=== PATIENT | male | born 1945 | race Caucasian/White ===

== ENCOUNTER 2022-07-11 14:45 | Outpatient (RCR) | payer MEDICARE, BC, SELFPAY ==
[2022-03-13 08:43] LABS: Albumin* 3.9 g/dL (3.3-5.0)
[2022-03-13 08:45] LABS: Bilirubin Direct* 0.2 mg/dL (0.0-0.5); Bilirubin Total* 1.5 mg/dL (0.1-1.5); Total Protein* 6.2 g/dL (6.0-8.3)
[2022-03-13 08:46] LABS: Alanine Aminotransferase* 153 U/L (4-50); Alkaline Phosphatase* 74 U/L (40-150); Aspartate Amino Transferase* 70 U/L (12-35)
[2022-03-28 12:17] LABS: Basophils Absolute Auto 0.02 K/uL (0.00-0.30); Basophils Percent Auto 0.3 % (0.0-3.0); Eosinophils Absolute Auto 0.09 K/uL (0.00-0.50); Eosinophils Percent Auto 1.2 % (0.0-7.0); Hematocrit 41.3 % (37.0-53.0); Hemoglobin* 14.4 gm/dL (13.5-17.5); Immature Granulocytes Abs Auto 0.02 K/uL (0.00-0.30); Lymphocytes Percent Auto 11.5 % (20-44); Mean Corpuscular HGB Conc 35 gm/dL (32-36); Mean Corpuscular Hemoglobin 31 pg (26-34); Mean Corpuscular Volume 90 fL (80-100); Monocytes Percent Auto 8.6 % (0.0-11.0); Neutrophils Percent Auto 78.1 % (42.0-72.0); Platelet Count* 203 K/uL (140-440); RDW Coefficient of Variation % 13.3 % (11.5-15.5); Red Blood Count 4.58 m/uL (4.30-5.90); White Blood Count* 7.47 K/uL (4.50-11.00)
[2022-03-28 12:20] LABS: Slide Review Reflex No
[2022-03-28 12:44] LABS: Chloride* 102 mmol/L (96-114); Potassium* 3.2 mmol/L (3.6-5.1); Sodium* 138 mmol/L (135-149)
[2022-03-28 12:46] LABS: Bilirubin Total* 1.5 mg/dL (0.1-1.5); Carbon Dioxide* 28 mmol/L (20-32); Creatinine* 0.8 mg/dL (0.5-1.5); Estimated Glomerular Filt Rate 93 ml/min
[2022-03-28 12:47] LABS: Alanine Aminotransferase* 48 U/L (4-50); Alkaline Phosphatase* 69 U/L (40-150); Aspartate Amino Transferase* 36 U/L (12-35); Blood Urea Nitrogen* 18 mg/dL (7-30); Calcium* 8.9 mg/dL (8.4-10.6); Glucose* 116 mg/dL (60-115); Total Protein* 6.2 g/dL (6.0-8.3)
[2022-03-28 15:54] LABS: PSA Diagnostic* 0.37 ng/mL (0.10-4.00)
[2022-04-11 12:07] LABS: Albumin* 3.9 g/dL (3.3-5.0)
[2022-04-11 12:09] LABS: Bilirubin Direct* 0.2 mg/dL (0.0-0.5); Total Protein* 6.3 g/dL (6.0-8.3)
[2022-04-11 12:10] LABS: Alanine Aminotransferase* 21 U/L (4-50); Alkaline Phosphatase* 72 U/L (40-150); Aspartate Amino Transferase* 27 U/L (12-35)
--- NOTE | 2022-05-04 09:31 | ONC.NURNOTE ---
Lab results called to [facility] to be reviewed by Dr Kaiser next week [facility] reports: -no alcohol for 2 months -exercising regularly and has lost some weight as a result -following a prediabetic diet -reports very intentional about healthy diet choices -overall feels very well -experienced tendonitis in hand which was treated with 5 days steroids and ibuprofen- 3 weeks ago
--- NOTE | 2022-06-12 12:15 | ONC.NURNOTE ---
Lab results called to [facility] noted Bili and normal liver function tests next lab with PSA needed early Dec and provider follow up 07/11/22 reports no concerns with Xtandi- tolerating well
--- NOTE | 2022-07-17 10:16 | ONC.NURNOTE ---
[facility] has run out of funding with the [employer] and there are no open grants for Prostate Cancer at this time. Application completed by [facility] and DR Kaiser for [employer] application faxed in today [facility] submitted an application with [facility] for copay help with Xtandi and has requested this office to complete the provider application for Oncology referral per [facility]'s request, the following information will be faxed to [phone] recent provider note, RX, DX and joseph RX from Dr Kaiser
--- NOTE | 2022-08-13 10:29 | ONC.NURNOTE ---
Noted K at 3.4- [facility] is waiting for Dr Torres to renew his K RX. He takes 20meq/day
--- NOTE | 2022-08-29 11:34 | ONC.NURNOTE ---
Xtandi status update: enrollment pending with [employer]- physician underwriter nor patient have received any update on enrollment status in the meantime- [facility] is using [employer] for $50 month he is receiving Xtandi and [employer] will enroll him in a benedict program should one open up [facility] has a month supply of Xtandi at home He is no longer using [facility] due to the cost of the medication through [facility] on 10/17 he is going on the wait list for [facility]
--- NOTE | 2022-09-06 14:29 | ONC.NURNOTE ---
Addendum entered by Daisy Lyons RN 09/07/22 11:06: [facility] was updated: [facility] has received 2 small grants through [employer] (? not enough to cover his deductible?), so he still has a copay at this point. He still wants to pursue the option of [employer], since he will be on Xtandi termination clerk and the copays are very limited and he is piecemealing his coverage together. Will wait to hear from [employer] in the mean time [facility] will continue with his current plan with [employer] Original Note: Supervisor Riprap Placing contacted [employer] for update on application status application is complete they were going to send RX to specialty pharmacy for review of copay r programmer informed customer marketing manager that [facility] is already on waiting list for [employer] [facility] and his RX is currently at specialty pharmacy [facility] and is on the waiting list for other copay grants [facility] has a copay for his most recent refill [employer] will try to expedite his application message left for [facility] to call for update
--- NOTE | 2022-09-07 15:49 | ONC.NURNOTE ---
Enrolled in [facility] Patient Assistance Program thru 2022
== END 2022-09-09 23:59 | disposition home or self-care (01) ==
LOC: CCIC 14:45
PROVIDERS: PCP Family Medicine; Visit Provider Internal Medicine Hematology & Oncology
DX: C61 Malignant neoplasm of prostate (principal); E53.8 Deficiency of other specified B group vitamins
CPT/HCPCS: 36415; 80053; 80076; 84153; 85025; 99212; 99214; 99215

== ENCOUNTER 2022-09-17 10:22 | Outpatient (CLI) | payer MEDICARE, BC, SELFPAY ==
--- NOTE | 2022-09-17 11:00 | CRLHL7_ITS ---
For Patients: As a result of the Century Cures Act, medical imaging exams and procedure reports are released immediately into your electronic medical record. You may view this report before your referring provider. If you have questions, please contact your health care provider. INDICATION: Hematuria. TECHNIQUE: CT abdomen and pelvis urogram without and with 98 cc Isovue 370 intravenous contrast. Contrast images were obtained in the nephrographic and delayed phases. COMPARISON: 01/14/2015 FINDINGS: KIDNEYS: The unenhanced images demonstrate no kidney or ureteral stones. The kidneys are normal in caliber and demonstrate normal uptake and excretion of IV contrast. No solid masses. Simple cyst lower pole right kidney measuring 1.2 cm. The renal collecting systems and ureters are symmetrical, normal in caliber, and without evidence of mass or filling defect. URINARY BLADDER: Postop changes of the prostate. Several small outpouchings of the posterior bladder wall with mild trabeculation. No intraluminal mass. OTHER: Degenerative changes at L5-S1. No fracture. Atherosclerotic disease. Postop changes of vasectomy. No bowel obstruction or free air. No free fluid or abscess. No intrahepatic mass. Gallbladder normal. Multiple hypodensities throughout the spleen measuring up to 1 cm. These are similar to the prior study. Normal adrenal glands. Stable small fat invagination regarding the pancreatic body. Dependent scarring in both lung bases. IMPRESSION: 1. 1.2 cm simple cyst lower pole right kidney. No solid renal mass or hydronephrosis. No renal, ureteral or bladder stone. 2. The bladder is distended and there is bladder wall trabeculation involving the posterior bladder wall with a somewhat shelf-like area at the superior aspect, best visualized on the sagittal series 7, image 95. Please note that all CT scans at this facility use dose modulation, iterative reconstruction, and/or weight-based dosing when appropriate to reduce radiation dose to as low as reasonably achievable. Dictated by Marino Robins MD @ 09/17/2022 1:00:24 PM (Electronically Signed)
[2022-09-17 11:26] LABS: Creatinine* 0.7 mg/dL (0.5-1.5); Estimated Glomerular Filt Rate 97 ml/min
== END 2022-09-17 10:23 | disposition home or self-care (01) ==
PROVIDERS: PCP Family Medicine; Visit Provider Urology
DX: R31.9 Hematuria, unspecified (principal); N28.1 Cyst of kidney, acquired
CPT/HCPCS: 36415; 74178; 82565; Q9967

== ENCOUNTER 2023-02-04 07:10 | Day surgery (SDC) | payer MEDICARE, BC, SELFPAY ==
--- NOTE | 2023-02-04 07:20 | CRLHL7_ITS ---
For Patients: As a result of the Century Cures Act, medical imaging exams and procedure reports are released immediately into your electronic medical record. You may view this report before your referring provider. If you have questions, please contact your health care provider. INDICATION: Metastatic cancer TECHNIQUE: Chest 1 view COMPARISON: None FINDINGS: Degenerative changes are present at the right shoulder. Cardiac silhouette is not enlarged. There is slight tortuosity of the descending thoracic aorta. No infiltrate or edema. No effusion or pneumothorax. Increased density involving the right medial clavicle noted. IMPRESSION: Clear lungs. Dictated by Marino Robins MD @ 02/04/2023 12:32:23 PM (Electronically Signed)
[2023-02-04] MEDS: LACTATED RINGERS 1000 ML 1,000 ML 100 ML IV (07:55)
[2023-02-04 07:59] VITALS: BP 119/76; PULSE 77; RESP 16; TEMP 36.3; O2SAT 97
[2023-02-04] MEDS: SODIUM CHLORIDE 0.9 % (FLUSH) 10 ML SYRINGE IVF (08:04)
[2023-02-04 08:05] VITALS: BMI 27.6
--- NOTE | 2023-02-04 08:45 | CRLHL7_ITS ---
For Patients: As a result of the Century Cures Act, medical imaging exams and procedure reports are released immediately into your electronic medical record. You may view this report before your referring provider. If you have questions, please contact your health care provider. Indication: Port placement Technique: One fluoroscopic image of the chest. Fluoroscopic time 24.4 seconds. IMPRESSION: Fluoroscopic guidance for port placement. Dictated by Marino Robins MD @ 02/04/2023 12:34:32 PM (Electronically Signed)
--- NOTE | 2023-02-04 08:54 | P.GSCN_ITS ---
History of Present Illness Consult details Date Seen: 02/04/23 Consult date: 02/04/23 Narrative: The patient is a 77-year-old male who is here today for port placement. He has metastatic prostate cancer which progressed on antiandrogen therapy. He is oncologist is planning on additional systemic chemotherapy. He underwent ureteral stent placement on the left on Saturday. He is currently on Cipro prophylaxis. Anesthesia was without event. He is overall feeling well today. He has been off his aspirin for the past 2 weeks [facility] Medical History (Updated 03/28/22 @ 13:48 by Marilin Kaiser MD) Adenocarcinoma of prostate ?C61 - Malignant neoplasm of prostate (ICD-10) Surgical History (Updated 03/05/22 @ 22:17 by Abigail Stroud APRN) S/P radiation therapy ?Z92.3 - Personal history of irradiation (ICD-10) Social History Smoking Status: Former smoker How often do you have a drink containing alcohol: never AUDIT-C Alcohol total score: 0 Non-prescribed substance use: denies use Caffeine: Yes Meds Home Medications and Allergies Home Medications Medication Instructions Recorded Confirmed Type chlorthalidone 25 mg tablet 25 mg PO QDAY 03/28/22 02/04/23 History cholecalciferol (vitamin D3) 50 50 mcg PO QDAY 03/28/22 02/04/23 History mcg (2,000 unit) capsule lisinopril 20 mg tablet 20 mg PO QDAY 03/28/22 02/04/23 History rosuvastatin 5 mg tablet 5 mg PO QDAY 03/28/22 02/04/23 History tamsulosin 0.4 mg capsule 0.8 mg PO QDAY 03/28/22 02/04/23 History enzalutamide 40 mg capsule (Xtandi) 160 mg PO QDAY 05/09/22 02/04/23 History calcium carbonate 600 mg calcium 600 mg PO QDAY 07/11/22 02/04/23 History (1,500 mg) tablet (Calcium) potassium chloride 20 mEq 20 meq PO QDAY 01/15/23 02/04/23 History tablet,extended release amlodipine 5 mg tablet 5 mg PO DAILY 01/31/23 02/04/23 History aspirin 81 mg tablet,delayed 81 mg PO DAILY 01/31/23 02/04/23 History release (Adult Low Dose Aspirin) chlorthalidone 25 mg tablet 25 mg PO DAILY 01/31/23 02/04/23 History cyanocobalamin (vitamin B-12) 500 mcg PO Q3D 01/31/23 02/04/23 History 1,000 mcg capsule leuprolide acetate (6 month) 45 mg 45 mg IM [id number] 01/31/23 01/31/23 History intramuscular syringe kit (Lupron Depot) Allergies Allergy/AdvReac Type Severity Reaction Status Date / Time allopurinol AdvReac Intermediate Itch Uncoded 03/28/22 13:15 Exam Narrative: Exam Narrative: General appearance: Alert, cooperative, and in no distress Eyes: PERRLA, eye lids clear, and sclera white HENT Head: Normocephalic Ears: External ears normal Pulmonary: Clear to auscultation bilaterally Chest: No scars Cardiovascular Heart: Regular rate and rhythm Psychiatric: Alert, oriented, cooperative, normal affect. Const: Vital Signs, click to edit/add: Vital Signs - 24 hr 02/04/23 07:59 Temperature 97.4 F L Pulse Rate 77 Respiratory Rate 16 Blood Pressure 119/76 Pulse Oximetry 97 Oxygen Delivery Me thod Room Air Results Labs Labs: All other labs normal. Assessment and Plan Assessment and plan (1) Adenocarcinoma of prostate: Problem comment: s/p cryotherapy to prostate 05/2019. Hormone therapy with eligard Status: Acute (2) Osseous metastasis: Status: Acute Plan The patient is a 77-year-old male who is here today for port placement. We discussed risks and benefits of the procedure as well as recovery. He expressed good understanding and agreed to proceed. We will plan on this as scheduled today.
--- NOTE | 2023-02-04 08:57 | PM.GSPRC ---
Operative Note Date of procedure: 02/04/23 Pre-op diagnosis: Metastatic prostate cancer Post-op diagnosis: Same Type of Procedure: Right IJ port placement ultrasound and fluoroscopic guidance. Indications: The patient is a 77-year-old male with metastatic prostate cancer. He is in need of port placement for chemotherapy. Procedure Description: After discussing the risks and benefits of the procedure, the patient signed informed consent.? The operative site was marked and the patient was brought to the operating room and placed on the operating table in supine position.? Care was taken to pad the patient's pressure points.?? The patient was then given sedation by anesthesia.?? The operative site was then prepped and draped in the usual sterile fashion.? A time-out was then performed. The patient's right internal jugular vein was visualized using ultrasound. Local anesthetic was injected into the skin overlying the vein. This was accessed percutaneously using ultrasound guidance. Using Seldinger technique, a guidewire was threaded through the needle. A skin hayley was made around the wire. Next, local anesthetic was injected into the skin below the clavicle and along the proposed tract to the neck incision. A skin incision was then made with a 15 blade and a pocket created in the subcutaneous tissue with cautery. A tunneler was then used to thread the catheter from the chest wall pocket to the neck incision. Once this was done fluoroscopy was brought into the field. Over the wire the tract was dilated using fluoroscopy. The wire and the dilator were then removed leaving the sheath in the vein. Through this, the catheter was threaded. Using fluoroscopy, the catheter was positioned into the distal SVC. The catheter was noted to flush and aspirate easily. The catheter was then connected to the port. The port was placed in the pocket and secured in place with 2 0 Prolene sutures. It was noted to flush and aspirate easily. This was then locked with heparinized saline. The skin was closed with absorbable suture. Sterile dressings were applied. Instrument sponge and needle counts were correct at the end of the case. The patient was woken and taken to the PACU in stable condition. ? The patient tolerated the procedure well. Findings: Right IJ power port placed in the low SVC Implants: Power port Anesthesia: GETA Surgeon: Melida Mendez MD Estimated blood loss (mL): 3 Condition: stable Disposition: same day
--- NOTE | 2023-02-04 08:58 | CRLHL7_ITS ---
For Patients: As a result of the Century Cures Act, medical imaging exams and procedure reports are released immediately into your electronic medical record. You may view this report before your referring provider. If you have questions, please contact your health care provider. INDICATION: Status post port placement COMPARISON: February 04, 2023 TECHNIQUE: Single-view study FINDINGS: TUBES AND LINES: Port placed probably ending in the SVC HEART AND MEDIASTINUM: The heart size is normal. The mediastinal contour appears normal for patient age. LUNGS AND PLEURAL SPACES: The lungs appear normal.The pleural spaces are unremarkable. OSSEOUS STRUCTURES: Sclerosis of the medial 3rd of the right clavicle. This could be metastatic though the appearance is nonspecific IMPRESSION: Port placed properly. Lungs and pleural space appear normal. Sclerosis of the medial 3rd of the right clavicle which could be metastatic though the appearance is nonspecific Dictated by Tone Sawant MD @ 02/04/2023 10:50:07 AM (Electronically Signed)
[2023-02-04] MEDS: BUPIVACAINE 0.5% 30 ML INJECTION (09:29)
[2023-02-04] MEDS: LIDOCAINE 1% MDV 20 ML INJECTION (09:29)
[2023-02-04] MEDS: 0.9% SODIUM CHL 50 ML VIAL INJECTION (09:47)
[2023-02-04] MEDS: HEPARIN 500 UNIT/5 ML SYRINGE IVF (09:47)
[2023-02-04 10:02] VITALS: BP 110/60; PULSE 65; RESP 16; TEMP 36.5; O2SAT 93
--- NOTE | 2023-02-04 10:07 | W.ANESCHARGE ---
Anesthesia Charges Start Date/Time Anesthesia Start Date: 02/04/23 Anesthesia Start Time: 09:07 Stop Date/Time Anesthesia Stop Date: 02/04/23 Anesthesia Stop Time: 10:04
[2023-02-04 10:15] VITALS: BP 117/75; PULSE 69; RESP 16; O2SAT 96
[2023-02-04 10:28] VITALS: BP 133/71; PULSE 61; RESP 16; O2SAT 96
== END 2023-02-04 11:02 | disposition home or self-care (01) ==
PROVIDERS: PCP Family Medicine; Visit Provider Surgery
PROC: (CPT 36561; principal; 2023-02-04 08:45)
DX: Z45.2 Encounter for adjustment and management of vascular access device (principal); C61 Malignant neoplasm of prostate; C79.51 Secondary malignant neoplasm of bone
CPT/HCPCS: 36561; 00532; 71045; 76000; 93005; C1788; J0665; J1642; J2250; J2405; J3010; J7120

== ENCOUNTER 2023-05-14 10:45 | Outpatient (RCR) | payer MEDICARE, BC, SELFPAY ==
--- NOTE | 2022-09-12 14:24 | ONC.NURNOTE ---
Bd Special Education Teacher called patient to find out when he was doing his lab appointment this month and he stated he was waiting until 10/04 due to his doctor being gone and his labs being stable he felt no need until next month when he goes to see Dr. Rodrigues. Bd Special Education Teacher did tell him he CBC and CMP ordered monthly while he is on his oral med Xtandi and that PSA is fine due to it just needing to be every 12 weeks. Will discuss with clinic navigator when she returns.
--- NOTE | 2022-09-19 13:31 | ONC.NURNOTE ---
[facility] Patient Assist Enrollment approved through 07/2023 RX is filled through [facility] pharmacy [phone]
--- NOTE | 2022-09-19 13:55 | ONC.NURNOTE ---
[facility] had CT ordered by Dr Hughes for reports of hematuria patient awaiting results hematuria has since resolved
--- NOTE | 2022-12-04 11:01 | ONC.NURNOTE ---
[place] [facility] [place] around December 22
--- NOTE | 2022-12-27 16:41 | ONC.NURNOTE ---
Electron Gun Inspector called patient and let him know his PSA has gone up again to 2.[address] kolb ordered a PMSA PET in [place]. Patient understands and is a bit disappointed his number went up.
--- NOTE | 2023-01-18 10:50 | ONC.NURNOTE ---
Addendum entered by Parisa Pickard RN 01/18/23 15:42: genetic testing referral faxed to [facility] #[phone]. They will reach out to pt to schedule. Original Note: Pt coming in for [facility] one liquid biopsy this afternoon. Radiation referral faxed to [facility]. Port placement order faxed to [facility] [employer] message for pt that he will need to schedule preop physical. Pt has a cystoscopy with tissue biopsy scheduled with Dr. Rodrigues on 02/01/23, will ask Dr. Kaiser on 01/21/23 when chemo should be initiated.
--- NOTE | 2023-01-18 12:46 | URNOTE ---
REceived request for prior auth for Docetaxel ([id number]), Pegfilgrastim ([id number]) and Denosumab ([id number]). Pt has Medicare/ [place] supplement. Prior auth is not required as services are based on medical necessity and follow medicare guidelines.
--- NOTE | 2023-01-25 13:30 | ONC.NURNOTE ---
Left patient a message asking him to call and schedule his chemo and Xgeva after his biopsy around first week of February. Biopsy to be done February [address] kolb right after that he should start his chemo.
--- NOTE | 2023-02-06 08:39 | ONC.NURNOTE ---
Called patient to check about scheduling chemotherapy, as noted to have PORT placed last week. He notes that biopsy was done on Thursday 02/01 as well, he was told at that time that would take about one week to get results. Patient is now scheduled for Saturday afternoon, so that results from biopsy can be shown to Dr. Kaiser on either Saturday or Saturday prior to treatment to be sure no changed need to be made in treatment plan of taxotere.
--- NOTE | 2023-02-08 15:46 | ONC.NURNOTE ---
[facility] requisition form faxed to [facility] along with pathology report from 02/01/2023 and supporting documentation.
[2023-02-11 13:04] LABS: Basophils Absolute Auto 0.02 K/uL (0.00-0.30); Basophils Percent Auto 0.2 % (0.0-3.0); Eosinophils Absolute Auto 0.11 K/uL (0.00-0.50); Eosinophils Percent Auto 1.2 % (0.0-7.0); Hematocrit 38.1 % (37.0-53.0); Hemoglobin* 12.9 gm/dL (13.5-17.5); Immature Granulocytes Abs Auto 0.09 K/uL (0.00-0.30); Lymphocytes Percent Auto 9.7 % (20-44); Mean Corpuscular HGB Conc 34 gm/dL (32-36); Mean Corpuscular Hemoglobin 30 pg (26-34); Mean Corpuscular Volume 89 fL (80-100); Monocytes Percent Auto 8.5 % (0.0-11.0); Neutrophils Percent Auto 79.4 % (42.0-72.0); Platelet Count* 241 K/uL (140-440); RDW Coefficient of Variation % 13.6 % (11.5-15.5); Red Blood Count 4.26 m/uL (4.30-5.90); White Blood Count* 9.18 K/uL (4.50-11.00)
[2023-02-11 13:12] LABS: Slide Review Reflex No
[2023-02-11 13:20] LABS: Albumin* 3.7 g/dL (3.3-5.0); Chloride* 101 mmol/L (96-114)
[2023-02-11 13:21] LABS: Sodium* 137 mmol/L (135-149)
[2023-02-11 13:22] VITALS: BP 118/76; PULSE 69; RESP 16; TEMP 36.6; O2SAT 99
[2023-02-11 13:23] LABS: Alkaline Phosphatase* 130 U/L (40-150); Aspartate Amino Transferase* 21 U/L (12-35); Bilirubin Total* 1.2 mg/dL (0.1-1.5); Carbon Dioxide* 28 mmol/L (20-32); Creatinine* 0.8 mg/dL (0.5-1.5); Est. Creatinine Clearance* 72.13; Estimated Glomerular Filt Rate 92 ml/min; Total Protein* 6.3 g/dL (6.0-8.3)
[2023-02-11 13:24] LABS: Alanine Aminotransferase* 14 U/L (4-50); Blood Urea Nitrogen* 23 mg/dL (7-30); Calcium* 8.9 mg/dL (8.4-10.6); Glucose* 101 mg/dL (60-115)
[2023-02-11 13:38] LABS: Potassium* 2.8 mmol/L (3.6-5.1)
--- NOTE | 2023-02-11 14:25 | ONC.NURNOTE ---
PSDS =1 urination - incontinent no SW referral- patient declined
[2023-02-11] MEDS: POTASSIUM CHLORIDE 10 MEQ/100 ML PIGGYBACK 100 MEQ IVPB ×2 (14:28→15:34)
[2023-02-11] MEDS: DENOSUMAB 120 MG inj SUBCUT (14:30)
--- NOTE | 2023-02-11 14:59 | ONC.NURNOTE ---
Taxotere teaching with patient and partner Paulette Thibodeaux discussed possible side effects, when to call with issues, after hours management treatment schedule, antiemetics, self care at home, post treatment handling of body fluids, fever management- go to ER reviewed contents of new patient education binder, handouts reviewed for taxotere, xgeva and neulasta discussed neulasta and xgeva- questions addressed DAKSHA and consents reviewed and signed
[2023-02-11] MEDS: 0.9 % SODIUM CHLORIDE 250 ml IV (16:42)
[2023-02-11] MEDS: HEPARIN 500 UNIT/5 ML SYRINGE IVF (16:42)
[2023-02-11] MEDS: SODIUM CHLORIDE 0.9 % (FLUSH) 10 ML SYRINGE IVF (16:42)
[2023-02-12 11:12] VITALS: BP 101/68; PULSE 65; RESP 16; TEMP 35.7; O2SAT 100
[2023-02-12 11:34] LABS: Potassium* 3.2 mmol/L (3.6-5.1)
[2023-02-12] MEDS: ONDANSETRON 2 MG/ML inj 8 MG IVP (12:35)
[2023-02-12] MEDS: dexAMETHasone 20 MG in 0.9 % SODIUM CHLORIDE 100 ml 100 ML 404 MG IVPB (12:40)
[2023-02-12] MEDS: SODIUM CHL 0.9% IVPB (13:20)
[2023-02-12] MEDS: DOCETAXEL IVPB (13:20)
[2023-02-12] MEDS: TUBING SECONDARY IVPB (13:20)
--- NOTE | 2023-02-13 17:00 | ONC.NURNOTE ---
Patient came in today thinking he had a lab draw but that is on Saturday. Patient states he feels fine like nothing ever happened. Will be back on Saturday for check of potassium.
[2023-02-15 09:24] LABS: Potassium* 3.2 mmol/L (3.6-5.1)
[2023-02-15 09:51] VITALS: BP 113/66; PULSE 96; RESP 16; TEMP 36.1; O2SAT 96
[2023-02-15] MEDS: HEPARIN 500 UNIT/5 ML SYRINGE IVF (10:07)
[2023-02-15] MEDS: SODIUM CHLORIDE 0.9 % (FLUSH) 10 ML SYRINGE IVF (10:07)
--- NOTE | 2023-02-15 10:09 | ONC.NURNOTE ---
Potassium 3.2 today, results reviewed by Abigail Ann APRN. No IV replacement needed today. Pt instructed to take Potassium 20meq PO BID, pt has been taking 20meq daily, however, Dr. Torres increased to twice daily yesterday. Pt encouraged [facility] if he develops any significant diarrhea. Otherwise, per Abigail Ann APRN we will recheck potassium level with next infusion on 03/05/23. Pt verbalized understanding of plan of care.
[2023-03-05 08:42] LABS: Basophils Absolute Auto 0.03 K/uL (0.00-0.30); Basophils Percent Auto 0.4 % (0.0-3.0); Hematocrit 36.5 % (37.0-53.0); Hemoglobin* 12.2 gm/dL (13.5-17.5); Immature Granulocytes Abs Auto 0.21 K/uL (0.00-0.30); Immature Granulocytes Pct Auto 2.6 %; Lymphocytes Percent Auto 6.7 % (20-44); Mean Corpuscular HGB Conc 33 gm/dL (32-36); Mean Corpuscular Hemoglobin 31 pg (26-34); Mean Corpuscular Volume 92 fL (80-100); Neutrophils Percent Auto 84.3 % (42.0-72.0); Platelet Count* 228 K/uL (140-440); RDW Coefficient of Variation % 15.2 % (11.5-15.5); Red Blood Count 3.99 m/uL (4.30-5.90); White Blood Count* 8.23 K/uL (4.50-11.00)
[2023-03-05 08:46] LABS: Slide Review Reflex No
[2023-03-05 08:55] LABS: Albumin* 3.6 g/dL (3.3-5.0); Chloride* 104 mmol/L (96-114); Potassium* 3.2 mmol/L (3.6-5.1); Sodium* 138 mmol/L (135-149)
[2023-03-05 08:57] LABS: Creatinine* 0.8 mg/dL (0.5-1.5); Est. Creatinine Clearance* 72.13; Estimated Glomerular Filt Rate 92 ml/min
[2023-03-05 08:58] LABS: Alanine Aminotransferase* 17 U/L (4-50); Alkaline Phosphatase* 107 U/L (40-150); Aspartate Amino Transferase* 23 U/L (12-35); Bilirubin Total* 0.7 mg/dL (0.1-1.5); Blood Urea Nitrogen* 23 mg/dL (7-30); Carbon Dioxide* 26 mmol/L (20-32); Glucose* 106 mg/dL (60-115); Total Protein* 5.8 g/dL (6.0-8.3)
[2023-03-05 08:59] LABS: Calcium* 7.7 mg/dL (8.4-10.6)
[2023-03-05] MEDS: 0.9 % SODIUM CHLORIDE 250 ml IV (09:45)
[2023-03-05] MEDS: dexAMETHasone 20 MG in 0.9 % SODIUM CHLORIDE 100 ml 100 ML 420 MG IVPB (09:58)
[2023-03-05] MEDS: POTASSIUM CHLORIDE 10 MEQ/100 ML PIGGYBACK 100 MEQ IVPB ×4 (09:58→13:07)
[2023-03-05] MEDS: ONDANSETRON 2 MG/ML inj 8 MG IVP (10:04)
[2023-03-05] MEDS: TUBING SECONDARY IVPB (11:18)
[2023-03-05] MEDS: DOCETAXEL IVPB (11:18)
[2023-03-05] MEDS: SODIUM CHL 0.9% IVPB (11:18)
[2023-03-11 13:10] VITALS: BP 129/81; PULSE 102; RESP 16; TEMP 36.5; O2SAT 96
[2023-03-11 14:00] VITALS: BP 112/70; PULSE 92
[2023-03-11] MEDS: DENOSUMAB 120 MG inj SUBCUT (14:29)
--- NOTE | 2023-03-11 18:04 | ONC.NURNOTE ---
[facility] states stop taking his bp meds because his BP at home was too low (90/60) and he felt lightheaded. on arrival to [facility] his bp and heart rate were, 129/81-102. after resting, 112/70-92. States no lightheadedness now. states drinking fluids and voiding alot. enc him to contact his Doctor him stopping his meds.
--- NOTE | 2023-03-22 11:42 | ONC.NURNOTE ---
Called patient to check on his schedule as it was noted that he was on for chemo the following week from seeing Abigail on Saturday. Patient notes that he is going on vacation after his visit with Abigail. Chemo plan moved out one week.
[2023-04-01 09:07] LABS: Basophils Absolute Auto 0.02 K/uL (0.00-0.30); Basophils Percent Auto 0.3 % (0.0-3.0); Eosinophils Absolute Auto 0.14 K/uL (0.00-0.50); Eosinophils Percent Auto 2.2 % (0.0-7.0); Hematocrit 34.3 % (37.0-53.0); Hemoglobin* 10.9 gm/dL (13.5-17.5); Immature Granulocytes Abs Auto 0.06 K/uL (0.00-0.30); Immature Granulocytes Pct Auto 0.9 %; Lymphocytes Percent Auto 8.9 % (20-44); Mean Corpuscular HGB Conc 32 gm/dL (32-36); Mean Corpuscular Hemoglobin 31 pg (26-34); Mean Corpuscular Volume 97 fL (80-100); Monocytes Percent Auto 6.6 % (0.0-11.0); Neutrophils Percent Auto 81.1 % (42.0-72.0); Platelet Count* 172 K/uL (140-440); RDW Coefficient of Variation % 16.3 % (11.5-15.5); Red Blood Count 3.52 m/uL (4.30-5.90); White Blood Count* 6.37 K/uL (4.50-11.00)
[2023-04-01 09:09] LABS: Slide Review Reflex No
[2023-04-01 09:18] LABS: Albumin* 3.2 g/dL (3.3-5.0); Chloride* 112 mmol/L (96-114); Potassium* 4.1 mmol/L (3.6-5.1); Sodium* 142 mmol/L (135-149)
[2023-04-01 09:20] LABS: Bilirubin Total* 0.7 mg/dL (0.1-1.5); Creatinine* 0.6 mg/dL (0.5-1.5); Est. Creatinine Clearance* 72.13; Estimated Glomerular Filt Rate 101 ml/min
[2023-04-01 09:21] LABS: Alanine Aminotransferase* 14 U/L (4-50); Alkaline Phosphatase* 80 U/L (40-150); Anion Gap 7 mEq/L (7-15); Aspartate Amino Transferase* 24 U/L (12-35); Blood Urea Nitrogen* 24 mg/dL (7-30); Calcium* 7.9 mg/dL (8.4-10.6); Carbon Dioxide* 23 mmol/L (20-32); Glucose* 92 mg/dL (60-115); Total Protein* 5.3 g/dL (6.0-8.3)
[2023-04-01 09:50] LABS: PSA Diagnostic* 0.75 ng/mL (0.10-4.00)
[2023-04-01] MEDS: 0.9 % SODIUM CHLORIDE 250 ml IV (11:30)
[2023-04-01] MEDS: dexAMETHasone 20 MG in 0.9 % SODIUM CHLORIDE 100 ml 100 ML 420 MG IVPB (11:40)
[2023-04-01] MEDS: ONDANSETRON 2 MG/ML inj 8 MG IVP (11:40)
[2023-04-01] MEDS: SODIUM CHL 0.9% IVPB (12:23)
[2023-04-01] MEDS: TUBING SECONDARY IVPB (12:23)
[2023-04-01] MEDS: DOCETAXEL IVPB (12:23)
[2023-04-01] MEDS: SODIUM CHLORIDE 0.9 % (FLUSH) 10 ML SYRINGE IVF (13:47)
[2023-04-01] MEDS: HEPARIN 500 UNIT/5 ML SYRINGE IVF (13:47)
[2023-04-11 10:58] VITALS: BP 113/69; PULSE 74; RESP 16; TEMP 36.3; O2SAT 97
[2023-04-11 11:41] LABS: Albumin* 3.2 g/dL (3.3-5.0)
[2023-04-11 11:44] LABS: Calcium* 8.7 mg/dL (8.4-10.6); Creatinine* 0.7 mg/dL (0.5-1.5); Est. Creatinine Clearance* 72.13; Estimated Glomerular Filt Rate 96 ml/min
[2023-04-11] MEDS: DENOSUMAB 120 MG inj SUBCUT (14:30)
[2023-04-22 09:40] LABS: Basophils Absolute Auto 0.02 K/uL (0.00-0.30); Basophils Percent Auto 0.2 % (0.0-3.0); Eosinophils Absolute Auto 0.01 K/uL (0.00-0.50); Eosinophils Percent Auto 0.1 % (0.0-7.0); Hematocrit 35.7 % (37.0-53.0); Hemoglobin* 11.4 gm/dL (13.5-17.5); Immature Granulocytes Pct Auto 1.1 %; Lymphocytes Percent Auto 7.9 % (20-44); Mean Corpuscular HGB Conc 32 gm/dL (32-36); Mean Corpuscular Hemoglobin 31 pg (26-34); Mean Corpuscular Volume 96 fL (80-100); Monocytes Percent Auto 7.1 % (0.0-11.0); Neutrophils Percent Auto 83.6 % (42.0-72.0); Platelet Count* 204 K/uL (140-440); RDW Coefficient of Variation % 16.1 % (11.5-15.5); Red Blood Count 3.74 m/uL (4.30-5.90); Slide Review Reflex No; White Blood Count* 8.83 K/uL (4.50-11.00)
[2023-04-22 09:51] LABS: Albumin* 3.5 g/dL (3.3-5.0); Chloride* 109 mmol/L (96-114); Sodium* 137 mmol/L (135-149)
[2023-04-22 09:52] LABS: Potassium* 4.2 mmol/L (3.6-5.1)
[2023-04-22 09:54] LABS: Alanine Aminotransferase* 14 U/L (4-50); Alkaline Phosphatase* 70 U/L (40-150); Anion Gap 3 mEq/L (7-15); Aspartate Amino Transferase* 21 U/L (12-35); Bilirubin Total* 0.8 mg/dL (0.1-1.5); Blood Urea Nitrogen* 35 mg/dL (7-30); Carbon Dioxide* 25 mmol/L (20-32); Creatinine* 0.6 mg/dL (0.5-1.5); Est. Creatinine Clearance* 72.13; Estimated Glomerular Filt Rate 101 ml/min; Total Protein* 5.6 g/dL (6.0-8.3)
[2023-04-22 09:55] LABS: Calcium* 8.6 mg/dL (8.4-10.6); Glucose* 100 mg/dL (60-115)
[2023-04-22] MEDS: dexAMETHasone 20 MG in 0.9 % SODIUM CHLORIDE 100 ml 100 ML 420 MG IVPB (12:07)
[2023-04-22] MEDS: ONDANSETRON 2 MG/ML inj 8 MG IVP (12:07)
[2023-04-22] MEDS: DOCETAXEL IVPB (12:29)
[2023-04-22] MEDS: SODIUM CHL 0.9% IVPB (12:29)
[2023-04-22] MEDS: TUBING SECONDARY IVPB (12:29)
[2023-04-22] MEDS: SODIUM CHLORIDE 0.9 % (FLUSH) 10 ML SYRINGE IVF (13:38)
[2023-04-22] MEDS: HEPARIN 500 UNIT/5 ML SYRINGE IVF (13:38)
--- NOTE | 2023-05-07 09:06 | ONC.NURNOTE ---
Patient was seen 04/[address] Kaiser and offered a rx for his runny, itchy red eyes. at that time he declined, but would like the rx now. pt states the runny eye fluid is clear.
[2023-05-14 10:45] LABS: Basophils Absolute Auto 0.02 K/uL (0.00-0.30); Basophils Percent Auto 0.3 % (0.0-3.0); Eosinophils Absolute Auto 0.01 K/uL (0.00-0.50); Eosinophils Percent Auto 0.2 % (0.0-7.0); Hemoglobin* 10.9 gm/dL (13.5-17.5); Immature Granulocytes Abs Auto 0.07 K/uL (0.00-0.30); Immature Granulocytes Pct Auto 1.1 %; Lymphocytes Percent Auto 8.7 % (20-44); Mean Corpuscular HGB Conc 31 gm/dL (32-36); Mean Corpuscular Hemoglobin 31 pg (26-34); Mean Corpuscular Volume 99 fL (80-100); Monocytes Percent Auto 9.6 % (0.0-11.0); Neutrophils Percent Auto 80.1 % (42.0-72.0); Platelet Count* 178 K/uL (140-440); RDW Coefficient of Variation % 16.6 % (11.5-15.5); Red Blood Count 3.54 m/uL (4.30-5.90); White Blood Count* 6.55 K/uL (4.50-11.00)
[2023-05-14 10:53] LABS: Slide Review Reflex No
[2023-05-14 10:57] LABS: Albumin* 3.4 g/dL (3.3-5.0); Chloride* 112 mmol/L (96-114); Potassium* 4.4 mmol/L (3.6-5.1); Sodium* 140 mmol/L (135-149)
[2023-05-14 10:59] LABS: Creatinine* 0.6 mg/dL (0.5-1.5); Est. Creatinine Clearance* 72.13; Estimated Glomerular Filt Rate 101 ml/min
[2023-05-14 11:00] LABS: Alanine Aminotransferase* 11 U/L (4-50); Alkaline Phosphatase* 64 U/L (40-150); Anion Gap 5 mEq/L (7-15); Aspartate Amino Transferase* 21 U/L (12-35); Bilirubin Total* 1.2 mg/dL (0.1-1.5); Blood Urea Nitrogen* 25 mg/dL (7-30); Calcium* 7.6 mg/dL (8.4-10.6); Carbon Dioxide* 23 mmol/L (20-32); Glucose* 93 mg/dL (60-115); Total Protein* 5.4 g/dL (6.0-8.3)
[2023-05-14] MEDS: 0.9 % SODIUM CHLORIDE 250 ml IV (12:00)
[2023-05-14] MEDS: dexAMETHasone 20 MG in 0.9 % SODIUM CHLORIDE 100 ml 100 ML 408 MG IVPB (12:30)
[2023-05-14] MEDS: ONDANSETRON 2 MG/ML inj 8 MG IVP (12:30)
[2023-05-14] MEDS: DOCETAXEL IVPB (12:55)
[2023-05-14] MEDS: SODIUM CHL 0.9% IVPB (12:55)
[2023-05-14] MEDS: TUBING SECONDARY IVPB (12:55)
[2023-05-14] MEDS: HEPARIN 500 UNIT/5 ML SYRINGE IVF (14:32)
[2023-05-14] MEDS: SODIUM CHLORIDE 0.9 % (FLUSH) 10 ML SYRINGE IVF (14:32)
--- NOTE | 2023-05-20 12:32 | ONC.NURNOTE ---
[employer] re enrollment letter received program contacted that patient no longer taking xtandi # [phone]
== END 2023-05-25 23:59 | disposition home or self-care (01) ==
LOC: CCIC 10:45
PROVIDERS: Clinical Nurse Specialist; PCP Family Medicine; Referring Provider Family Medicine; Visit Provider Internal Medicine Hematology & Oncology
DX: Z51.11 Encounter for antineoplastic chemotherapy (principal); C61 Malignant neoplasm of prostate; C79.51 Secondary malignant neoplasm of bone; T45.1X5A Adverse effect of antineoplastic and immunosuppressive drugs, initial encounter; E87.6 Hypokalemia; E53.8 Deficiency of other specified B group vitamins
CPT/HCPCS: 36415; 36591; 80053; 82040; 82310; 82565; 84132; 84153; 85025; 96365; 96366; 96368; 96372; 96376; 96377; 96401; 96413; 99211; 99212; 99213; 99214; 99215; J2506; J0612; J0897; J1100; J1642; J2405; J3480; J7050; J9171

== ENCOUNTER 2023-11-27 11:00 | Outpatient (RCR) | payer MEDICARE, BC, SELFPAY ==
[2023-06-03 09:50] VITALS: BP 149/83; PULSE 85; RESP 16; TEMP 36.2; O2SAT 94
[2023-06-03 10:02] LABS: Basophils Absolute Auto 0.03 K/uL (0.00-0.30); Basophils Percent Auto 0.4 % (0.0-3.0); Eosinophils Absolute Auto 0.01 K/uL (0.00-0.50); Eosinophils Percent Auto 0.1 % (0.0-7.0); Hematocrit 34.6 % (37.0-53.0); Hemoglobin* 10.9 gm/dL (13.5-17.5); Immature Granulocytes Abs Auto 0.09 K/uL (0.00-0.30); Immature Granulocytes Pct Auto 1.2 %; Mean Corpuscular HGB Conc 32 gm/dL (32-36); Mean Corpuscular Hemoglobin 31 pg (26-34); Mean Corpuscular Volume 97 fL (80-100); Monocytes Percent Auto 9.3 % (0.0-11.0); Platelet Count* 183 K/uL (140-440); RDW Coefficient of Variation % 16.1 % (11.5-15.5); Red Blood Count 3.56 m/uL (4.30-5.90); White Blood Count* 7.64 K/uL (4.50-11.00)
[2023-06-03 10:09] LABS: Slide Review Reflex No
[2023-06-03 10:24] LABS: Albumin* 3.2 g/dL (3.3-5.0); Chloride* 104 mmol/L (96-114); Sodium* 140 mmol/L (135-149)
[2023-06-03 10:25] LABS: Potassium* 3.9 mmol/L (3.6-5.1)
[2023-06-03 10:27] LABS: Alkaline Phosphatase* 69 U/L (40-150); Anion Gap 12 mEq/L (7-15); Aspartate Amino Transferase* 33 U/L (12-35); Blood Urea Nitrogen* 24 mg/dL (7-30); Carbon Dioxide* 24 mmol/L (20-32); Creatinine* 0.6 mg/dL (0.5-1.5); Estimated Glomerular Filt Rate 101 ml/min; Total Protein* 5.5 g/dL (6.0-8.3)
[2023-06-03 10:28] LABS: Alanine Aminotransferase* 11 U/L (4-50); Glucose* 95 mg/dL (60-115)
[2023-06-03 10:57] LABS: PSA Diagnostic* 0.45 ng/mL (0.10-4.00)
[2023-06-03] MEDS: dexAMETHasone 20 MG in 0.9 % SODIUM CHLORIDE 100 ml 100 ML 408 MG IVPB (11:12)
[2023-06-03] MEDS: ONDANSETRON 2 MG/ML inj 8 MG IVP (11:12)
[2023-06-03] MEDS: SODIUM CHL 0.9% IVPB (11:41)
[2023-06-03] MEDS: SODIUM CHLORIDE 0.9 % (FLUSH) 10 ML SYRINGE IVF (11:41)
[2023-06-03] MEDS: DOCETAXEL IVPB (11:41)
[2023-06-03] MEDS: TUBING SECONDARY IVPB (11:41)
[2023-06-03] MEDS: HEPARIN 500 UNIT/5 ML SYRINGE IVF (11:42)
[2023-06-03] MEDS: 0.9 % SODIUM CHLORIDE 250 ml IV (11:42)
[2023-06-04 11:29] VITALS: BP 114/72; PULSE 67; RESP 16; TEMP 35.8; O2SAT 93
[2023-06-04 11:59] LABS: Ionized Calcium* 1.15 mmol/L (1.11-1.30)
[2023-06-04] MEDS: DENOSUMAB 120 MG inj SUBCUT (14:47)
--- NOTE | 2023-06-18 13:26 | ONC.NURNOTE ---
Addendum entered by Daisy Lyons RN 06/24/23 10:34: Darolutamide approved after appeal submitted 06/18/23- indefinitely ref # [id number] Addendum entered by Daisy Lyons RN 06/19/23 16:11: 72 hour for appeal to be completed Ref # [id number] [facility] [phone] Addendum entered by Daisy Lyons RN 06/19/23 15:56: PA denied by [facility] Call to expedite an appeal- [facility] Dr Kaiser will order additional cycle of taxotere Original Note: New RX Nubeqa RX sent to [facility]- PA completed via covermymeds
--- NOTE | 2023-06-20 10:21 | URNOTE ---
Prior auth is not required for [employer] ([id number]). Pt has medicare and [employer] supplement. Services are based on medical necessity and follow medicare guidelines.
--- NOTE | 2023-07-03 10:06 | ONC.NURNOTE ---
Call to [facility] PAF- missing application page 5 was faxed in yesterday to [phone] caption writer called to confirm page received- caption writer will refax as they don't have the fax yet application was received by Grata on 06/26/23- Due to the and this is re-enrollment time at [facility]- they have a significant back log of processing applications and expect that the application may be processed by Thursday 07/05 English Language Learner Tutor was told that it is taking 10 days for applications to be processed
--- NOTE | 2023-07-09 10:24 | ONC.NURNOTE ---
Plan to start Nubeqa and restart taxotere is currently on hold pending tumor the conference recommendation from [facility] on 07/19/23 Dr Kaiser called [facility] with this plan last week appts for treatment start and provider follow up are pending until tumor conference mortgage underwriter left this message with [facility]'s VM confirming this plan
--- NOTE | 2023-07-11 14:43 | ONC.NURNOTE ---
Nubeqa - patient will receive at no cost through the [facility] case # [id number] 07/11/23-08/04/24 [phone] fax [phone]
[2023-07-31 14:48] VITALS: BP 128/79; PULSE 59; RESP 16; TEMP 36.6; O2SAT 96
[2023-07-31 15:43] LABS: Basophils Absolute Auto 0.01 K/uL (0.00-0.30); Basophils Percent Auto 0.2 % (0.0-3.0); Eosinophils Absolute Auto 0.16 K/uL (0.00-0.50); Eosinophils Percent Auto 3.2 % (0.0-7.0); Hematocrit 37.4 % (37.0-53.0); Hemoglobin* 11.8 gm/dL (13.5-17.5); Immature Granulocytes Abs Auto 0.02 K/uL (0.00-0.30); Immature Granulocytes Pct Auto 0.4 %; Lymphocytes Percent Auto 12.6 % (20-44); Mean Corpuscular HGB Conc 32 gm/dL (32-36); Mean Corpuscular Hemoglobin 29 pg (26-34); Mean Corpuscular Volume 92 fL (80-100); Monocytes Percent Auto 8.8 % (0.0-11.0); Neutrophils Percent Auto 74.8 % (42.0-72.0); Platelet Count* 159 K/uL (140-440); RDW Coefficient of Variation % 15.1 % (11.5-15.5); Red Blood Count 4.08 m/uL (4.30-5.90); White Blood Count* 5.01 K/uL (4.50-11.00)
[2023-07-31 15:50] LABS: Slide Review Reflex No
[2023-07-31 16:00] LABS: Albumin* 3.7 g/dL (3.3-5.0); Chloride* 108 mmol/L (96-114); Sodium* 139 mmol/L (135-149)
[2023-07-31 16:03] LABS: Alanine Aminotransferase* 12 U/L (4-50); Alkaline Phosphatase* 64 U/L (40-150); Anion Gap 8 mEq/L (7-15); Aspartate Amino Transferase* 18 U/L (12-35); Bilirubin Total* 0.8 mg/dL (0.1-1.5); Blood Urea Nitrogen* 19 mg/dL (7-30); Calcium* 8.5 mg/dL (8.4-10.6); Carbon Dioxide* 23 mmol/L (20-32); Creatine Kinase* 59 U/L (54-186); Creatinine* 0.6 mg/dL (0.5-1.5); Estimated Glomerular Filt Rate 101 ml/min; Glucose* 90 mg/dL (60-115); Total Protein* 5.9 g/dL (6.0-8.3)
[2023-08-01 12:06] VITALS: BP 139/81; PULSE 64; RESP 16; TEMP 35.8; O2SAT 96
[2023-08-01] MEDS: DENOSUMAB 120 MG inj SUBCUT (12:14)
[2023-08-27 10:03] LABS: Basophils Absolute Auto 0.01 K/uL (0.00-0.30); Basophils Percent Auto 0.2 % (0.0-3.0); Eosinophils Absolute Auto 0.12 K/uL (0.00-0.50); Eosinophils Percent Auto 2.2 % (0.0-7.0); Hematocrit 39.7 % (37.0-53.0); Hemoglobin* 12.6 gm/dL (13.5-17.5); Immature Granulocytes Abs Auto 0.04 K/uL (0.00-0.30); Immature Granulocytes Pct Auto 0.7 %; Lymphocytes Percent Auto 10.7 % (20-44); Mean Corpuscular HGB Conc 32 gm/dL (32-36); Mean Corpuscular Hemoglobin 29 pg (26-34); Mean Corpuscular Volume 91 fL (80-100); Monocytes Percent Auto 8.8 % (0.0-11.0); Neutrophils Percent Auto 77.4 % (42.0-72.0); Platelet Count* 140 K/uL (140-440); RDW Coefficient of Variation % 14.8 % (11.5-15.5); Red Blood Count 4.38 m/uL (4.30-5.90); White Blood Count* 5.44 K/uL (4.50-11.00)
[2023-08-27 10:05] LABS: Slide Review Reflex No
[2023-08-27 10:15] LABS: Albumin* 3.9 g/dL (3.3-5.0)
[2023-08-27 10:16] LABS: Chloride* 109 mmol/L (96-114); Potassium* 4.5 mmol/L (3.6-5.1); Sodium* 140 mmol/L (135-149)
[2023-08-27 10:18] LABS: Anion Gap 6 mEq/L (7-15); Bilirubin Total* 1.1 mg/dL (0.1-1.5); Carbon Dioxide* 25 mmol/L (20-32); Creatinine* 0.6 mg/dL (0.5-1.5); Estimated Glomerular Filt Rate 101 ml/min
[2023-08-27 10:19] LABS: Alanine Aminotransferase* 15 U/L (4-50); Alkaline Phosphatase* 61 U/L (40-150); Aspartate Amino Transferase* 22 U/L (12-35); Blood Urea Nitrogen* 22 mg/dL (7-30); Calcium* 8.5 mg/dL (8.4-10.6); Glucose* 96 mg/dL (60-115); Total Protein* 6.3 g/dL (6.0-8.3)
[2023-08-27 10:50] LABS: PSA Diagnostic* 1.21 ng/mL (0.10-4.00)
[2023-08-28 14:50] VITALS: BP 197/106; PULSE 68
[2023-08-28 15:20] VITALS: BP 187/108; PULSE 66
[2023-08-28] MEDS: lisinopriL 20 MG TABLET 40 MG PO (15:32)
[2023-08-28 16:10] VITALS: BP 207/105; PULSE 68
[2023-08-28 16:20] VITALS: BP 185/91; PULSE 72
[2023-08-28 16:30] VITALS: BP 209/90; PULSE 70
--- NOTE | 2023-08-28 16:47 | ONC.NURNOTE ---
Patient originally had MD appointment for 1330 but thought it was 1415 so he was late but schedule readjusted. Patient states I am never late I always make a point to be early. Also met with MD regarding elevated PSA and fact that PSA has tripled since completing chemotherapy. Blood pressure very elevated today (see blood pressure readings.) Did end up giving patient lisinopril 20mg po at 1532 but blood pressure at 1630 still up at 207/105 heart rate 68---Patient denies any headaches/numbness/tingling/SOB/Chest pain--appears calm. Suggested he go to Emergency room to be seen but patient refuses and feels like if he goes home he'll be fine. Does have blood pressure cuff at home and will check his blood pressure a few times this evening. Patient did take his lisinopril 10mg tablet this am.
[2023-09-17 10:09] LABS: Basophils Absolute Auto 0.01 K/uL (0.00-0.30); Basophils Percent Auto 0.2 % (0.0-3.0); Eosinophils Percent Auto 1.7 % (0.0-7.0); Hematocrit 40.3 % (37.0-53.0); Hemoglobin* 13.1 gm/dL (13.5-17.5); Immature Granulocytes Abs Auto 0.06 K/uL (0.00-0.30); Lymphocytes Percent Auto 11.2 % (20-44); Mean Corpuscular HGB Conc 33 gm/dL (32-36); Mean Corpuscular Hemoglobin 29 pg (26-34); Mean Corpuscular Volume 88 fL (80-100); Monocytes Percent Auto 7.5 % (0.0-11.0); Neutrophils Percent Auto 78.4 % (42.0-72.0); Platelet Count* 164 K/uL (140-440); RDW Coefficient of Variation % 14.8 % (11.5-15.5); Red Blood Count 4.58 m/uL (4.30-5.90); White Blood Count* 5.98 K/uL (4.50-11.00)
[2023-09-17 10:12] LABS: Slide Review Reflex No
[2023-09-17 10:19] LABS: Albumin* 4.2 g/dL (3.3-5.0); Chloride* 103 mmol/L (96-114)
[2023-09-17 10:20] LABS: Potassium* 3.8 mmol/L (3.6-5.1); Sodium* 141 mmol/L (135-149)
[2023-09-17 10:22] LABS: Anion Gap 9 mEq/L (7-15); Aspartate Amino Transferase* 30 U/L (12-35); Bilirubin Total* 1.1 mg/dL (0.1-1.5); Carbon Dioxide* 29 mmol/L (20-32); Creatinine* 0.7 mg/dL (0.5-1.5); Estimated Glomerular Filt Rate 96 ml/min; Total Protein* 6.5 g/dL (6.0-8.3)
[2023-09-17 10:23] LABS: Alanine Aminotransferase* 18 U/L (4-50); Alkaline Phosphatase* 73 U/L (40-150); Blood Urea Nitrogen* 20 mg/dL (7-30); Calcium* 9.2 mg/dL (8.4-10.6); Glucose* 106 mg/dL (60-115)
[2023-09-17] MEDS: DENOSUMAB 120 MG inj SUBCUT (11:38)
[2023-10-21] MEDS: HEPARIN 500 UNIT/5 ML SYRINGE IVF (08:44)
[2023-10-21] MEDS: SODIUM CHLORIDE 0.9 % (FLUSH) 10 ML SYRINGE IVF (08:44)
[2023-10-21 08:45] LABS: Basophils Absolute Auto 0.01 K/uL (0.00-0.30); Basophils Percent Auto 0.2 % (0.0-3.0); Eosinophils Percent Auto 1.7 % (0.0-7.0); Hematocrit 35.7 % (37.0-53.0); Hemoglobin* 11.7 gm/dL (13.5-17.5); Immature Granulocytes Abs Auto 0.03 K/uL (0.00-0.30); Immature Granulocytes Pct Auto 0.5 %; Lymphocytes Percent Auto 7.8 % (20-44); Mean Corpuscular HGB Conc 33 gm/dL (32-36); Mean Corpuscular Hemoglobin 29 pg (26-34); Mean Corpuscular Volume 90 fL (80-100); Monocytes Percent Auto 9.1 % (0.0-11.0); Neutrophils Percent Auto 80.7 % (42.0-72.0); Platelet Count* 139 K/uL (140-440); RDW Coefficient of Variation % 16.1 % (11.5-15.5); Red Blood Count 3.99 m/uL (4.30-5.90); White Blood Count* 6.05 K/uL (4.50-11.00)
[2023-10-21 08:48] LABS: Slide Review Reflex No
[2023-10-21 09:25] LABS: Albumin* 3.7 g/dL (3.3-5.0); Chloride* 107 mmol/L (96-114); Potassium* 3.8 mmol/L (3.6-5.1); Sodium* 139 mmol/L (135-149)
[2023-10-21 09:27] LABS: Creatinine* 0.6 mg/dL (0.5-1.5); Estimated Glomerular Filt Rate 100 ml/min
[2023-10-21 09:28] LABS: Alanine Aminotransferase* 16 U/L (4-50); Alkaline Phosphatase* 114 U/L (40-150); Anion Gap 2 mEq/L (7-15); Aspartate Amino Transferase* 23 U/L (12-35); Bilirubin Total* 1.1 mg/dL (0.1-1.5); Blood Urea Nitrogen* 24 mg/dL (7-30); Calcium* 8.7 mg/dL (8.4-10.6); Carbon Dioxide* 30 mmol/L (20-32); Glucose* 102 mg/dL (60-115); Total Protein* 6.2 g/dL (6.0-8.3)
[2023-10-21 09:57] LABS: PSA Diagnostic* 4.61 ng/mL (0.10-4.00)
[2023-10-24 12:46] VITALS: BP 128/80; PULSE 73; RESP 16; TEMP 36.1; O2SAT 100
[2023-10-24] MEDS: DENOSUMAB 120 MG inj SUBCUT (12:53)
[2023-11-20 08:57] VITALS: BP 92/62; PULSE 76; RESP 16; TEMP 35.9; O2SAT 98
[2023-11-20 09:12] LABS: Basophils Absolute Auto 0.01 K/uL (0.00-0.30); Basophils Percent Auto 0.2 % (0.0-3.0); Eosinophils Absolute Auto 0.09 K/uL (0.00-0.50); Eosinophils Percent Auto 1.5 % (0.0-7.0); Hematocrit 36.2 % (37.0-53.0); Hemoglobin* 11.8 gm/dL (13.5-17.5); Immature Granulocytes Abs Auto 0.03 K/uL (0.00-0.30); Immature Granulocytes Pct Auto 0.5 %; Lymphocytes Percent Auto 7.7 % (20-44); Mean Corpuscular HGB Conc 33 gm/dL (32-36); Mean Corpuscular Hemoglobin 29 pg (26-34); Mean Corpuscular Volume 90 fL (80-100); Monocytes Percent Auto 9.5 % (0.0-11.0); Neutrophils Percent Auto 80.6 % (42.0-72.0); Platelet Count* 173 K/uL (140-440); RDW Coefficient of Variation % 15.2 % (11.5-15.5); Red Blood Count 4.02 m/uL (4.30-5.90); White Blood Count* 5.81 K/uL (4.50-11.00)
[2023-11-20 09:19] LABS: Slide Review Reflex No
[2023-11-20 09:26] LABS: Albumin* 3.8 g/dL (3.3-5.0); Chloride* 109 mmol/L (96-114); Potassium* 3.7 mmol/L (3.6-5.1); Sodium* 138 mmol/L (135-149)
[2023-11-20 09:29] LABS: Alanine Aminotransferase* 107 U/L (4-50); Alkaline Phosphatase* 152 U/L (40-150); Anion Gap 3 mEq/L (7-15); Aspartate Amino Transferase* 79 U/L (12-35); Bilirubin Total* 1.6 mg/dL (0.1-1.5); Blood Urea Nitrogen* 22 mg/dL (7-30); Carbon Dioxide* 26 mmol/L (20-32); Creatinine* 0.7 mg/dL (0.5-1.5); Estimated Glomerular Filt Rate 95 ml/min; Glucose* 102 mg/dL (60-115); Total Protein* 6.6 g/dL (6.0-8.3)
[2023-11-20 09:30] LABS: Calcium* 8.1 mg/dL (8.4-10.6)
--- NOTE | 2023-11-20 10:09 | PC.NURSE ---
Pt present at [facility] for labs and Xgeva. See lab results. LFT's elevated. Discussed with Abigail Stroud APRN and provided pt with the following plan: Plan on 11/20/2023 ? Hold darolutamide ? Hold Xgeva shot today ? Double Calcium supplement (take 1200 mg in AM and 1200 mg in PM) ? Increase fluid intake ? Call your PCP to discuss BP medication plans ? Return to [facility] next week for repeat labs on Saturday, at 11:30 ? We will discuss with Dr. Kaiser on Saturday. Will call you if there is any change in the above before we see you on Saturday.
[2023-11-27 11:58] VITALS: BP 141/75; PULSE 68; RESP 16; TEMP 36.4; O2SAT 99
[2023-11-27] MEDS: DENOSUMAB 120 MG inj SUBCUT (12:23)
--- NOTE | 2023-11-27 14:13 | ONC.NURNOTE ---
Pt here for blood draw and xgeva. AST/ALT slightly improved, however, alk phos slightly elevated. Labs reviewed by Dr. Kaiser and order received to have pt restart the darolutamide at 300mg BID and recheck LFTs in one week. Pt called with updated orders and scheduled to come in for a blood draw 12/04/23. Pt verbalized understanding of instructions.
== END 2023-11-30 23:59 | disposition home or self-care (01) ==
LOC: CCIC 11:00
PROVIDERS: Clinical Nurse Specialist; PCP Family Medicine; Referring Provider Family Medicine; Visit Provider Internal Medicine Hematology & Oncology
DX: C61 Malignant neoplasm of prostate (principal); C79.51 Secondary malignant neoplasm of bone; T45.1X5A Adverse effect of antineoplastic and immunosuppressive drugs, initial encounter; E83.51 Hypocalcemia
CPT/HCPCS: 36415; 36591; 80053; 82330; 82550; 84153; 85025; 96372; 96376; 96377; 96401; 96413; 99211; 99212; 99214; 99215; G0463; J2506; A9270; J0897; J1100; J1642; J2405; J7050; J9171; J9217

== ENCOUNTER 2023-12-26 13:19 | Outpatient (CLI) | payer MEDICARE, BC, SELFPAY ==
--- OUTSIDE RECORDS SUMMARY | 2023-12-26 13:24 | XMS_ITS | Clinical Summary ---
Author Organization [facility] Address [address] [place] [address] Care Team Providers Care Artist Agent Name Role Phone Elsewhere, Pcp Primary Care Provider Unavailabl e Source Comments Patient records contain information from all sites at [facility]. For routine questions regarding patient records, call [phone] during business hours, M-F 8:00 AM - 5:00 PM Central Time. Record requests for emergency care only can be directed to [phone] at any time.[facility] Allergies Active Allergy Reactions Criticality Noted Date Comments Allopurinol Itching,Other (see comments) High 2016 Medications Medication Sig Dispensed Refills Start Date End Date Status aspirin [address] tablet Take by mouth. 05/12/2008 Active calcium-vitamin D3-vitamin K 500-100-40 mg-unit-mcg tablet,chewable Chew 1 tablet daily. 05/25/2019 Active lisinopriL (PRINIVIL,ZESTRIL) 20 mg tablet Take 20 mg by mouth daily. 11/06/2021 Active rosuvastatin (CRESTOR) 5 mg tablet Take 5 mg by mouth at bedtime. 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 Secondary Malignant Neoplasm Bone (HCC) (Primary Dx); Primary Malignant Neoplasm Of Prostate (HCC) 12/26/2023 Orders Only Department of Oncology in [place], [place] [address] [place] [address] Mariiln Kaiser M.D. 12/26/2023 Orders Only Department of Oncology in [place], [place] [address] [place] [address] Marilin Kaiser M.D. 12/24/2023 10:33 AM CDT - 12/24/2023 11:59 PM CDT Hospital Encounter Department of Radiology in [place], [place] [address] [address] Marilin Kaiser M.D. Primary Malignant Neoplasm Of Prostate (HCC) Discharge Disposition: Home or Self Care 12/18/2023 Orders Only Department of Oncology in [place], [place] [address] [place] [address] Marilin Kaiser M.D. Primary Malignant Neoplasm Of Prostate (HCC) (Primary Dx) from Last 3 Months Immunizations Name Administration Dates Next Due SARS-COV-2 (COVID-19) - PFIZ ER (Discontinued)(12 years or older) 09/21/2020,08/31/2020 Family History Medical History Relation Name Comments Prostate cancer Father at age 73 of liver failure. Breast cancer Mother of metast atic breast cancer at age 76. Relation Name Status Comments Father Mother Social History Tobacco Use Types Packs/Day Years Used Date Smoking Tobacco: Former Cigarettes 0.5 0.5 0 12/04/1974 - 06/05/1975 Smokeless Tobacco: Never Alcohol Use Standard Drinks/Week Comments Yes 14 (1 standard drink = 0.6 oz pu re alcohol) 2 drinks per day Humiliation, Afraid, Rape, and Kick questionnair e Answer Date Recorded Within the last year, have y ou been afraid of your partner or ex-partner? No 01/24/2023 Within the last year, have y ou been humiliated or emotionally abused in other ways by your partner or ex-partner? No Within the last year, have y ou been kicked, hit, slapped, or otherwise physically hurt by your partner or ex-partner? No 01/24/2023 Within the last year, have y ou been raped or forced to have any kind of sexual activity by your partner or ex-partner? No 01/24/2023 Social Connection and Isolat ion Panel [NHANES] Answer Date Recorded In a typical week, how many times do you talk on the phone with family, friends, or neighbors? More than three times a week 12/21/2021 How often do you get togethe r with friends or relatives? Once a week 12/21/2021 How often do you attend chur or islam services? Never 12/21/2021 Do you belong to any clubs o r organizations such as amish groups, unions, fraternal or athletic groups, or school groups? No 12/21/2021 How often do you attend meet ings of the clubs or organizations you belong to? Never 12/21/2021 Are you , , di vorced, , never , or living with a partner? 12/21/2021 AUDIT-C Answer Date Recorded Q1: How often do you have a drink containing alcohol? 4 or more times a week 12/21/2021 Q2: How many drinks containi ng alcohol do you have on a typical day when you are drinking? 3 or 4 Q3: How often do you have si x or more drinks on one occasion? Never 12/21/2021 Overall Financial Resource Strain (CARDIA) Answe r Date Recorded How hard is it for you to pa y for the very basics like food, housing, medical care, and heating? Not hard at all 01/24/2023 [facility] [place] of Occupat ional Health - Occupational Stress Questionnaire Answer Date Recorded Do you feel stress - tense, restless, nervous, or anxious, or unable to sleep at night because your mind is troubled all the time - these days? Not at all 12/21/2021 Exercise Vital Sign Answer Date Recorde d On average, how many days pe r week do you engage in moderate to strenuous exercise (like a brisk walk)? 5 days 01/24/2023 On average, how many minutes do you engage in exercise at this level? 40 min 01/24/2023 Hunger Vital Sign Answer Date Recorded Within the past 12 months, y ou worried that your food would run out before you got the money to buy more. Never true 01/25/20 23 Within the past 12 months, t he food you bought just didn't last and you didn't have money to get more. Never true 01/24/2023 PRAPARE - Transportation Answer Date Re corded In the past 12 months, has l ack of transportation kept you from medical appointments or from getting medications? No 01/04 In the past 12 months, has l ack of transportation kept you from meetings, work, or from getting things needed for daily living? No 01/24/2023 Nutrition Answer Date Recorded Nutrition: EVOO Fat Source Yes 01/24 On average, how many serving s of fruits and vegetables do you eat per day (serving size is equal to 1 cup or approximately the size of a tennis ball)? 3-5 01/24/2023 Dental Answer Date Recorded Dental: Regular Dentist Yes 12/22/19 Employment Answer Date Recorded Employment status Employed and actively working without restrictions 01/24/2023 Housing Stability Answer Date Recorded What is your living situation today? I have a [facility] place to live 01/24/2023 Education Answer Date Recorded What is the highest level of school you have completed or the highest degree you have received? Master's degree (e.g., MA, MS, Gail, MEd, HOMEOPATHIC DOCTOR, JAMIE) 12/21/2021 Sex and Gender Information Value Date Recorded Sex Assigned at Male 12/21/2021 7:22 AM CDT Gender Identity Male 12/21/2021 7:22 AM CDT Sexual Orientation Straight 12/21/2021 7: 22 AM CDT Last Filed Vital Signs Vital Sign Reading Time Taken Comments Blood Pressure 138/76 07/31/2023 12:44 PM COMMISSIONING SPECIALIST Pulse 68 07/31/2023 12:44 PM COMMISSIONING SPECIALIST Temperature 36.1 ??C (97 ??F) 08/01/2023 11:36 AM COMMISSIONING SPECIALIST Respiratory Rate - - Oxygen Saturation - - Inhaled Oxygen Concentration - - Weight 92.7 kg (204 lb 5.9 oz) 08/01/2023 11:36 AM COMMISSIONING SPECIALIST Height - - Body Mass Index - - Plan of Treatment Health Maintenance Due Date Last Done Comments Hepatitis C Screening 1945 COVID-19 Vaccine ( season) 2023 05/22/2023, 05/21/2022, 10/30/2021, Additional history exists Depression Screening (Annual PHQ-2) 08/05/2023 Fall Risk Screen (Annual) 08/05/2023 Creatinine Level (Kidney Function Test) 09/13/2024 09/13/2023, 12/24/2022, 11/19/2022, Additional history exists Potassium Level 09/13/2024 09/13/2023, 12/04, 11/19/2022, Additional history exists Sodium Level 09/13/2024 09/13/2023, 12/04, 11/19/2022, Additional history exists DTaP,Tdap,and Td Vaccines (3 - Td or Tdap) 05/13/2027 05/13/2017, 10/03/2005 Abdominal Aortic Aneurysm (AAA) Screen Discontinued 11/27/2016 Pneumococcal vaccine (65+ years) Completed 04/14/2018, 05/02/2015 Colonoscopy Discontinued 06/17/2020, 08/04/2018 Colonoscopy Discontinued 06/17/2020, 08/04/2018 Colorectal Cancer Screening Discontinued Colorectal Cancer Surveillance Discontinued Zoster Vaccines Completed 03/08/2021, 01/04/2021 Influenza Vaccine Completed 05/22/2023, , 05/24/2021, Additional history exists CT Colonography Discontinued CT Colonography Discontinued Cologuard Discontinued FIT Discontinued HPV Vaccines Aged Out No longer eligi ble based on patient's age to complete this topic Procedures Procedure Name Priority Date/Time Associated Diagnosis Comments PET CT SKULL TO THIGH PSMA RAD - Routine (most inpatients and all outpatients) 12/24/2023 12:54 PM CDT Primary Malignant Neoplasm Of Prostate (HCC) EXTI BASIC METABOLIC PANEL, S/P Routine 09/13/2023 2:[address] ABDOMEN PELVIS WITH IV CONTRAST RAD - Routine (most inpatients and all outpatients) 11/27/2016 8:26 AM CDT from Last 3 Months or Most Recently Relevant to Health Maintenance Results * PET CT Skull to Thigh PSMA (12/24/2023 12:54 PM CDT) Anatomical Region Laterality Modality Body, Nuclear Medicine PET R ST LOS, PET ARZ LOS, Nuclear Medicine PET FLA LOS, Nuclear Medicine N/A Positron Emission Tomography (PET) Impressions 12/24/2023 1:33 PM CDT 1. ??Progression of tracer avid osseous metastatic disease (miPSMA expression score 3). 2. ??Multifocal intense tracer uptake throughout the prostate gland compatible with prostatic adenocarcinoma. Narrative 12/24/2023 1:33 PM CDT EXAM: PET CT SKULL TO THIGH PSMA COMPARISON: PSV PET/CT 09/10/2023 INDICATION: Metastatic prostate cancer. Subsequent treatment strategy. The patient reports no recent vaccinations. FINDINGS: Diffuse radiotracer uptake throughout the prostate gland most pronounced within the right posterior peripheral (maximum SUV 9.8) and left anterior transitional (maximum SUV 10.2) zones. When compared to the prior examination, there is interval marked progression of diffuse osseous metastatic disease with multiple new radiotracer avid lesions involving the axial and proximal appendicular skeleton. For example, there are multiple new lesions involving the left parietal bone, right temporal bone, right humeral head, right distal clavicle, numerous ribs, sternal body, multiple vertebral bodies, posterior elements as well as throughout the pelvis. The most avid lesion is within the right clavicular head with maximum SUV 35.7, previously 5.0. The CT correlate for this lesion has not substantially changed in size measuring approximately 5.6 cm. Many lesions are not associated with distinct CT correlate. There is no pathologic fracture or evidence of epidural or other soft tissue metastatic disease. A left nephroureteral stent is in similar position to the prior study. Mild radiotracer uptake along the anterior aspect of the stent is favored to represent misregistered trace urinary activity. Incidental CT findings: Diffuse cerebral and cerebellar volume loss. Right chest wall internal jugular central venous access port catheter tip terminates at the superior cavoatrial junction. Vasectomy clips. Calcite atherosclerosis throughout the aorta and major branches including the coronary and carotid arteries. RADIOPHARMACEUTICAL/MEDS: Route: intravenous piflufolastat F 18 injection (PYLARIFY F-18),9.2 millicurie Procedure Note Krishna Kinney M.D. - 12/24/2023 EXAM: PET CT SKULL TO THIGH PSMA COMPARISON: PSV PET/CT 09/10/2023 INDICATION: Metastatic prostate cancer. Subsequent treatment strategy. The patient reports no recent vaccinations. FINDINGS: Diffuse radiotracer uptake throughout the prostate gland most pronouncedwithin the right posterior peripheral (maximum SUV 9.8) and left anteriortransitional (maximum SUV 10.2) zones. When compared to the prior examination, there is interval markedprogression of diffuse osseous metastatic disease with multiple newradiotracer avid lesions involving the axial and proximal appendicularskeleton. For example, there are multiple new lesions involving the left parietal bone, right temporal bone, righthumeral head, right distal clavicle, numerous ribs, sternal body, multiplevertebral bodies, posterior elements as well as throughout the pelvis. Themost avid lesion is within the right clavicular head with maximum SUV 35.7, previously 5.0. The CTcorrelate for this lesion has not substantially changed in size measuringapproximately 5.6 cm. Many lesions are not associated with distinct CTcorrelate. There is no pathologic fracture or evidence of epidural or other softtissue metastatic disease. A left nephroureteral stent is in similarposition to the prior study. Mild radiotracer uptake along the anterioraspect of the stent is favored to represent misregistered trace urinary activity. Incidental CT findings: Diffuse cerebral and cerebellar volume loss. Right chest wall internaljugular central venous access port catheter tip terminates at the superiorcavoatrial junction. Vasectomy clips. Calcite atherosclerosis throughoutthe aorta and major branches including the coronary and carotid arteries. RADIOPHARMACEUTICAL/MEDS: Route: intravenous piflufolastat F 18 injection (PYLARIFY F-18),9.2 millicurie IMPRESSION: 1. Progression of tracer avid osseous metastatic disease (miPSMAexpression score 3). 2. Multifocal intense tracer uptake throughout the prostate glandcompatible with prostatic adenocarcinoma. Marilin CROFT NM PROCEDURES from Last 3 Months or Most Recently Relevant to Health Maintenance Care Teams Artist Agent Relationship Specialty Start Date End Date Elsewhere, Pcp PCP - General Family Medicine 08/31/20
--- OUTSIDE RECORDS SUMMARY | 2023-12-26 13:25 | XMS_ITS | Encounter Summary ---
Author Organization [facility] Address [address] [place] [address] Care Team Providers Care Lithographer Helper Name Role Phone Elsewhere, Pcp Primary Care Provider Unavailabl e Encounter Details Date Type Department Care Team (Late st Contact Info) Description 12/26/2023 Orders Only Department of Oncology in [place], [place] [address] [place] [phone] Marilin Kaiser M.D. [address] [place] [phone] Social History Tobacco Use Types Packs/Day Years [...] 12/21/2021 How often do you attend chur ch or muslim services? Never 12/21/2021 Do you belong to any clubs o r organizations such as jewish groups, unions, fraternal or athletic groups, or [...] and heating? Not hard at all 01/24/2023 [facility] of Occupat ional Health - Occupational Stress [...] your living situation today? I have a [facility] place to live 01/24/2023 Education Answer Date Recorded What is the highest level of school you have completed or the highest degree you have received? Master's degree (e.g., MA, MS, Gail, MEd, MICROGRINDER OPERATOR, JAMIE) 12/21/2021 Sex and Gender Information Value Date Recorded Sex Assigned at Male 12/21/2021 7:22 AM CDT Gender Identity Male 12/21/2021 7:22 AM CDT Sexual Orientation Straight 12/21/2021 7: 22 AM CDT documented as of this encounter Plan of Treatment Not on file documented as of this encounter Visit Diagnoses Not on filedocumented in this encounter Care Teams Lithographer Helper Relationship Specialty Start Date End Date Elsewhere, Pcp PCP - General Family Medicine 08/31/20 documented as of this encounter
--- OUTSIDE RECORDS SUMMARY | 2023-12-26 13:25 | XMS_ITS | Referral Summary ---
Author Organization [facility] Address [address] [place] [address] Care Team Providers Care Band Top Maker Name Role Phone Elsewhere, Pcp Primary Care Provider Unavailabl e Source Comments Patient records contain information from all sites at [facility]. For routine questions regarding patient records, call [phone] during business hours, M-F 8:00 AM - 5:00 PM Central Time. Record requests for emergency care only can be directed to [phone] at any time.[facility] Encounters Date Type Department Care Team Description 12/26/2023 Orders Only Department of Oncology in [place], [place] [address] [place] [address] Renetta Tan R.N. Secondary Malignant Neoplasm Bone (HCC) (Primary Dx); Primary Malignant Neoplasm Of Prostate (HCC) 12/26/2023 Orders Only Department of Oncology in [place], [place] [address] [place] [address] Marilin Kaiser M.D. 12/26/2023 Orders Only Department of Oncology in [place], [place] [address] [place] [address] Marilin Kaiser M.D. 12/24/2023 10:33 AM CDT - 12/24/2023 11:59 PM CDT Hospital Encounter Department of Radiology in [place], [place] [address] [address] Marilin Kaiser M.D. Primary Malignant Neoplasm Of Prostate (HCC) Discharge Disposition: Home or Self Care 12/18/2023 Orders Only Department of Oncology in [place], [place] [address] [facility] [place] [address] Marilin Kaiser M.D. Primary Malignant Neoplasm Of Prostate (HCC) (Primary Dx) from Last 3 Months Allergies Active Allergy Reactions Criticality Noted Date [...] IIA(T1c, N0, M0, PSA: Less than 10, [place] 7) - Unsigned Immunizations Name Administration Dates Next Due SARS-COV-2 (COVID-19) - PFIZ ER (Discontinued)(12 years or older) 09/21/2020,08/31/2020 Social History Tobacco Use Types Packs/Day Years [...] How often do you attend chur or mu-ism services? Never 12/21/2021 Do you belong to any clubs o r organizations such as lutheran groups, unions, fraternal or athletic groups, or [...] and heating? Not hard at all 01/24/2023 [facility] [place] of Occupat ional Health - Occupational Stress [...] money to buy more. Never true 01/25/20 Within the past 12 months, t he [...] your living situation today? I have a [facility] place to live 01/24/2023 Education Answer Date Recorded What is the highest level of school you have completed or the highest degree you have received? Master's degree (e.g., MA, MS, Gail, MEd, PRINCIPAL GIFTS OFFICER, JAMIE) 12/21/2021 Sex and Gender Information Value Date Recorded Sex Assigned at Male 12/21/2021 7:22 AM CDT Gender Identity Male 12/21/2021 7:22 AM CDT Sexual Orientation Straight 12/21/2021 7: 22 AM CDT Last Filed Vital Signs Vital Sign Reading Time Taken Comments Blood Pressure 138/76 07/31/2023 12:44 PM LABORATORY ADMINISTRATIVE DIRECTOR Pulse 68 07/31/2023 12:44 PM LABORATORY ADMINISTRATIVE DIRECTOR Temperature 36.1 ??C (97 ??F) 08/01/2023 11:36 AM LABORATORY ADMINISTRATIVE DIRECTOR Respiratory Rate - - Oxygen Saturation - - Inhaled Oxygen Concentration - - Weight 92.7 kg (204 lb 5.9 oz) 08/01/2023 11:36 AM LABORATORY ADMINISTRATIVE DIRECTOR Height - - Body Mass Index - - Plan of Treatment Not on file Procedures Procedure Name Priority Date/Time Associated Diagnosis Comments PET CT SKULL TO THIGH PSMA RAD - Routine (most inpatients and all outpatients) 12/24/2023 12:54 PM CDT Primary Malignant Neoplasm Of Prostate (HCC) EXTI BASIC METABOLIC PANEL, S/P Routine 09/13/2023 2:[address]ORY ADMINISTRATIVE DIRECTOR CT ABDOMEN PELVIS WITH IV CONTRAST RAD [...] Recently Relevant to Health Maintenance Care Teams Band Top Maker Relationship Specialty Start Date End Date Elsewhere, Pcp PCP - General Family Medicine 08/31/20
--- OUTSIDE RECORDS SUMMARY | 2023-12-26 13:25 | XMS_ITS ---
Author Organization [facility] Address [address] [place] [address] Care Team Providers Care Supervisor Loading Name Role Phone Unavailable Unavailable Unavailable Surgery Details Not on file Complications Check Surgery Details section. Procedure Estimated Blood Loss Check Surgery Details section. Procedure Findings Check Surgery Details section. Procedure Specimens Taken Check Surgery Details section.
--- OUTSIDE RECORDS SUMMARY | 2023-12-26 13:25 | XMS_ITS | Encounter Summary ---
Author Organization [facility] Address [address] [place] [address] Care Team Providers Care Training Director Name Role Phone Elsewhere, Pcp Primary Care Provider Unavailabl e Encounter Details Date Type Department Care Team (Late st Contact Info) Description 12/26/2023 Orders Only Department of Oncology in [place], [place] [address] [address] Renetta Tan R.N. [address] [address] Secondary Malignant Neoplasm Bone (HCC) (Primary Dx); Primary Malignant Neoplasm Of Prostate (HCC) Social History Tobacco Use Types Packs/Day Years [...] often do you attend chur ch or temple services? Never 12/21/2021 Do you belong to any clubs o r organizations such as buddhism groups, unions, fraternal or athletic groups, or [...] and heating? Not hard at all 01/24/2023 [facility] of Occupat ional Health - Occupational Stress [...] your living situation today? I have a [facility] place to live 01/24/2023 Education Answer Date Recorded What is the highest level of school you have completed or the highest degree you have received? Master's degree (e.g., MA, MS, Gail, MEd, PRODUCT INTRODUCTION MANAGER, JAMIE) 12/21/2021 Sex and Gender Information Value Date Recorded Sex Assigned at Male 12/21/2021 7:22 AM CDT Gender Identity Male 12/21/2021 7:22 AM CDT Sexual Orientation Straight 12/21/2021 7: 22 AM CDT documented as of this encounter Plan of Treatment Not on file documented as of this encounter Visit Diagnoses Diagnosis Secondary Malignant Neoplasm Bone (HCC)- Primary Primary Malignant Neoplasm Of Prostate (HCC) documented in this encounter Care Teams Training Director Relationship Specialty Start Date End Date Elsewhere, Pcp PCP - General Family Medicine 08/31/20 documented as of this encounter
--- OUTSIDE RECORDS SUMMARY | 2023-12-26 13:25 | XMS_ITS | Encounter Summary ---
Author Organization [facility] Address [address] [place] [address] Care Team Providers Care Automation Lead Name Role Phone Elsewhere, Pcp Primary Care Provider Unavailabl e Encounter Details Date Type Department Care Team (Late st Contact Info) Description 09/12/2023 Orders Only Department of Oncology in [place], [place] [address] [place] [phone] Marilin Kaiser M.D. [address] [place] [phone] Primary Malignant Neoplasm Of Prostate (HCC) (Primary Dx) Social History Tobacco Use Types Packs/Day Years [...] often do you attend chur ch or sikh services? Never 12/21/2021 Do you belong to any clubs o r organizations such as orthodox groups, unions, fraternal or athletic groups, or [...] and heating? Not hard at all 01/24/2023 [facility] Occupat ional Health - Occupational [...] your living situation today? I have a [facility] place to live 01/24/2023 Education Answer Date Recorded What is the highest level of school you have completed or the highest degree you have received? Master's degree (e.g., MA, MS, Gail, MEd, ACETALDEHYDE CONVERTER OPERATOR, JAMIE) 12/21/2021 Sex and Gender Information Value Date Recorded Sex Assigned at Male 12/21/2021 7:22 AM CDT Gender Identity Male 12/21/2021 7:22 AM CDT Sexual Orientation Straight 12/21/2021 7: 22 AM CDT documented as of this encounter Plan of Treatment Not on file documented as of this encounter Visit Diagnoses Diagnosis Primary Malignant Neoplasm Of Prostate (HCC)- Primary documented in this encounter Care Teams Automation Lead Relationship Specialty Start Date End Date Elsewhere, Pcp PCP - General Family Medicine 08/31/20 documented as of this encounter
--- OUTSIDE RECORDS SUMMARY | 2023-12-26 13:25 | XMS_ITS | Clinical Summary ---
Author Organization [facility] Address [address] [place] [address] Care Team Providers Care Labor Gang Supervisor Name Role Phone Rivas Torres MD Primary Care Provider [phone]- [phone] Allergies Active Allergy Reactions Criticality Noted Date Comments Allopurinol Itching 05/11/2019 Medications Medication Sig Dispensed Refills Start Date End Date Status leuprolide (ELIGARD) 45 MG kit Inject 45 mg Subcutaneous every 6 months Active chlorthalidone (HYGROTON) 25 MG tablet Take 25 mg by mouth daily Active lisinopril (PRINIVIL/ZESTRIL) 20 MG tablet Take 20 mg by mouth daily Active rosuvastatin (CRESTOR) 5 MG tablet Take 5 mg by mouth daily Active fluocinonide (LIDEX) 0.05 % external cream Apply topically 2 times daily Active Calcium Carb-Cholecalcifer ol (CALCIUM 1000 + D PO) Active potassium chloride ER (K-DUR/KLOR-CON M) 10 MEQ CR tablet Take 10 mEq by mouth daily Pt unaware of dose Active sulfamethoxazole-t rimethoprim (BACTRIM DS/SEPTRA DS) 800-160 MG tabletIndications: Prostate CA (H) Take 1 tablet by mouth 2 times daily 14 tablet 05/12/2019 Active vitamin B-12 (CYANOCOBALAMIN) 1000 MCG tablet Taking 500 mcg every 3 days 10/22/2022 Active Cholecalciferol 250 MCG (09964 UT) CAPS 01/17/2022 Active lisinopril (ZESTRIL) 20 MG tablet Take 1 tablet by mouth daily 11/03/2022 Active potassium chloride ER (KLOR-CON M) 20 MEQ CR tablet Take 20 mEq by mouth 08/16/2022 A ctive aspirin (ASA) 81 MG chewable tablet Take 81 mg by mouth daily Active enzalutamide (XTANDI) 40 MG capsule Take 160 mg by mouth daily Active HYDROcodone-acetam inophen (NORCO) 5-325 MG tabletIndications: Postoperative state Take 1-2 tablets by mouth every 6 hours as needed for moderate to severe pain 6 tablet 11/09/2022 Active Social History Tobacco Use Types Packs/Day Years Used Date Smoking Tobacco: Former Cigarettes 0.5 25 1 [birth year]/05/1949 - 06/05/1975 Smokeless Tobacco: Never Tobacco Cessation:Counseling Given: Not Answered Alcohol Use Standard Drinks/Week Comments Yes 0 (1 standard drink = 0.6 oz pur e alcohol) 2-3X/ WEEK- 12 BEERS/ WEEK Adolescent Education Answer Date Record ed Getting School Help Needed Not on file 05/22 Sex and Gender Information Value Date Recorded Sex Assigned at Not on file Gender Identity Not on file Sexual Orientation Not on file Last Filed Vital Signs Vital Sign Reading Time Taken Comments Blood Pressure 137/76 11/09/2022 9:35 AM CDT Pulse 54 11/09/2022 9:35 AM CDT Temperature 36.3 ??C (97.4 ??F) 11/09/2022 9:00 AM CD T Respiratory Rate 11 11/09/2022 9:35 AM CDT Oxygen Saturation 98% 11/09/2022 9:35 AM CDT Inhaled Oxygen Concentration - - Weight 92.4 kg (203 lb 11.2 oz) 11/09/2022 5:45 AM CDT Height 185.4 cm (6' 1) 11/09/2022 5:45 AM CDT Body Mass Index 26.87 11/09/2022 5:45 AM CDT Plan of Treatment Health Maintenance Due Date Last Done Comments ADVANCE CARE PLANNING 1947 ANNUAL REVIEW OF HM ORDERS 1947 GLUCOSE 1947 LIPID 1947 HEPATITIS C SCREENING 1965 LUNG CANCER SCREENING 1997 RSV VACCINE ( & 60+) (1 - 1-dose 60+ series) 2007 FALL RISK ASSESSMENT 2012 MEDICARE ANNUAL WELLNESS VISIT 10/30/2022 10/30/2021 COVID-19 Vaccine ( season) 2023 05/21/2022, 10/30/2021, 05/24/2021, Additional history exists PHQ-2 (once per calendar year) 2023 INFLUENZA VACCINE (Season Ended) 2024 04/13/2022, 05/24/2021, 05/11/2020, Additional history exists DTAP/TDAP/TD IMMUNIZATION (3 - Td or Tdap) 05/13/2027 05/13/2017, 10/03/2005, 09/17/1995 Pneumococcal Vaccine: 65+ Years Completed 04/14/2018, 05/02/2015 ZOSTER IMMUNIZATION Completed 03/08/2021, HPV IMMUNIZATION Aged Out No longer e ligible based on patient's age to complete this topic IPV IMMUNIZATION Aged Out No longer e ligible based on patient's age to complete this topic MENINGITIS IMMUNIZATION Aged Out No l onger eligible based on patient's age to complete this topic RSV MONOCLONAL ANTIBODY Aged Out No l onger eligible based on patient's age to complete this topic Care Teams Labor Gang Supervisor Relationship Specialty Start Date End Date Rivas Torres MD PCP - General Family Practice 04/27/19
--- OUTSIDE RECORDS SUMMARY | 2023-12-26 13:25 | XMS_ITS | Encounter Summary ---
Author Organization [facility] Address [address] [place] [address] Care Team Providers Care Pharmaceutical Officer Name Role Phone Elsewhere, Pcp Primary Care Provider Unavailabl e Encounter Details Date Type Department Care Team (Late st Contact Info) Description 12/26/2023 Orders Only Department of Oncology in [place], [place] [address] [place] [phone] Marilin Kaiser M.D. [address] [place] [phone] Social History Tobacco Use Types Packs/Day Years [...] often do you attend chur ch or mosque services? Never 12/21/2021 Do you belong to any clubs o r organizations such as quaker groups, unions, fraternal or athletic groups, or [...] and heating? Not hard at all 01/24/2023 [facility] of Occupat ional Health - Occupational Stress [...] your living situation today? I have a [facility] place to live 01/24/2023 Education Answer Date Recorded What is the highest level of school you have completed or the highest degree you have received? Master's degree (e.g., MA, MS, Gail, MEd, MICA PATCHER, JAMIE) 12/21/2021 Sex and Gender Information Value Date Recorded Sex Assigned at Male 12/21/2021 7:22 AM CDT Gender Identity Male 12/21/2021 7:22 AM CDT Sexual Orientation Straight 12/21/2021 7: 22 AM CDT documented as of this encounter Plan of Treatment Not on file documented as of this encounter Visit Diagnoses Not on filedocumented in this encounter Care Teams Pharmaceutical Officer Relationship Specialty Start Date End Date Elsewhere, Pcp PCP - General Family Medicine 08/31/20 documented as of this encounter
--- OUTSIDE RECORDS SUMMARY | 2023-12-26 13:25 | XMS_ITS | Encounter Summary ---
Author Organization [facility] Address [address] [place] [address] Care Team Providers Care Drug Abuse Worker Name Role Phone Elsewhere, Pcp Primary Care Provider Unavailabl e Reason for Referral * MRI/CAT/PET Scan (Routine) - Closed Specialty Diagnoses / Procedures Referred By Morenitaac t Referred To Contact Diagnoses Primary Malignant Neoplasm Of Prostate (HCC) Procedures PET CT Skull to Thigh PSMA Marilin Kaiser M.D. [address] [place] [address] [facility] Referral ID Status Reason Start Date Expiration Date Visits Re quested Visits Authorized [id number] Closed 12/18/2023 12/17/2024 1 1 Reason for Visit * MRI/CAT/PET Scan (Routine) - Closed Specialty Diagnoses / Procedures Referred By Javon lopez Referred To Contact Diagnoses Primary Malignant Neoplasm Of Prostate (HCC) Procedures PET CT Skull to Thigh PSMA Marilin Kaiser M.D. [address] [place] [address] [facility] Referral ID Status Reason Start Date Expiration Date Visits Re quested Visits Authorized [id number] Closed 12/18/2023 12/17/2024 1 1 Encounter Details Date Type Department Care Team (Latest Contact Info) Description 12/24/2023 10:33 AM CDT - 12/24/2023 11:59 PM CDT Hospital Encounter Department of Radiology in [place], [place] [address] [place] [phone] Marilin Kaiser M.D. [address] [place] [address] Primary Malignant Neoplasm Of Prostate (HCC) Discharge Disposition: Home or Self Care Social History Tobacco Use Types Packs/Day Years [...] often do you attend chur ch or yarsanism services? Never 12/21/2021 Do you belong to any clubs o r organizations such as confucianism groups, unions, fraternal or athletic groups, or [...] and heating? Not hard at all 01/24/2023 [facility] Occupat ional Health - [...] your living situation today? I have a [facility] place to live 01/24/2023 Education Answer Date Recorded What is the highest level of school you have completed or the highest degree you have received? Master's degree (e.g., MA, MS, Gail, MEd, RECREATION PROGRAM COORDINATOR, JAMIE) 12/21/2021 Sex and Gender Information Value Date Recorded Sex Assigned at Male 12/21/2021 7:22 AM CDT Gender Identity Male 12/21/2021 7:22 AM CDT Sexual Orientation Straight 12/21/2021 7: 22 AM CDT documented as of this encounter Medications at Time of Discharge Medication Sig Dispensed Refills Start Date End Date aspirin [address] tablet Take by mouth. 05/12/2008 calcium-vitamin D3-vitamin K 500-100-40 mg-unit-mcg tablet,chewable Chew 1 tablet daily. 05/25/2019 lisinopriL (PRINIVIL,ZESTRIL) 20 mg tablet Take 20 mg by mouth daily. 11/06/2021 rosuvastatin (CRESTOR) 5 mg tablet Take 5 mg by mouth at bedtime. 11/06/2021 tamsulosin (FLOMAX) 0.4 mg 24 hr capsule TAKE TWO CAPSULES BY MOUTH ONCE DAILY AFTER A MEAL 11/06/2021 documented as of this encounter Plan of Treatment Not on file documented as of this encounter Procedures Procedure Name Priority Date/Time Associated Diagnosis Comments PET CT SKULL TO THIGH PSMA RAD - Routine (most inpatients and all outpatients) 12/24/2023 12:54 PM CDT Primary Malignant Neoplasm Of Prostate (HCC) documented in this encounter Results * PET CT Skull to Thigh [...] prostate glandcompatible with prostatic adenocarcinoma. Marilin CROFT LA PROCEDURES documented in this encounter Visit Diagnoses Diagnosis Primary Malignant Neoplasm Of Prostate (HCC) documented in this encounter Administered Medications Inactive Administered Medications - up to 3 most recent administrations Medication Order MAR Action Action Date Dose Rate Site piflufolastat F 18 injection (PYLARIFY F-18) 9.2 millicurie, intravenous, Once, On 12/24/23 at 1200, For 1 dose, Imaging Protocol Orders Given 12/24/2023 11:15 AM CDT 9.2 millicuries Right Antecubital documented in this encounter Care Teams Drug Abuse Worker Relationship Specialty Start Date End Date Elsewhere, Pcp PCP - General Family Medicine 08/31/20 documented as of this encounter
--- OUTSIDE RECORDS SUMMARY | 2023-12-26 13:25 | XMS_ITS | Referral Summary ---
Author Organization [facility] Address [address] [place] [address] Care Team Providers Care Transportation Broker Name Role Phone Rivas Torres MD Primary Care Provider +1- [phone] Allergies Active Allergy Reactions Criticality Noted Date [...] 3 days 10/22/2022 Active Cholecalciferol 250 MCG (73881 UT) CAPS 01/17/2022 Active lisinopril (ZESTRIL) 20 [...] 11/09/2022 5:45 AM CDT Plan of Treatment Not on file Care Teams Transportation Broker Relationship Specialty Start Date End Date Rivas Torres MD PCP - General Family Practice 04/27/19
--- OUTSIDE RECORDS SUMMARY | 2023-12-26 13:25 | XMS_ITS ---
Author Organization [facility] Address [address] [place] [address] Care Team Providers Care Poolroom Table Attendant Name Role Phone Elsewhere, Pcp Primary Care Provider Unavailabl e Active Problems Problem Noted Date Diagnosed Date Rising Prostate Specific Ant igen Following Treatment For Malignant Cancer Of Prostate 07/21/2023 Secondary Malignant Neoplasm Bone 01/29/2023 Primary Malignant Neoplasm Of Prostate Cancer Staging:Clinical:Stage IIA(T1c, N0, M0, PSA: Less than 10, [place] 7) - Unsigned Current Oncology Plans No current plan information found. Past Plans No past plan information found. Radiation Treatments * Plan Last Treated On Elapsed Days Fractions Treated Prescribed Fraction Dose Prescribed Total Dose [id number] 08/01/2023 8 1 of 1 2,000 cGy 2,000 cGy [id number] 07/31/2023 7 3 of 3 1,000 cGy 3,000 cG y [id number] 07/30/2023 6 3 of 3 1,000 cGy 3,000 cG y Reference Point Last Treated On Elapsed Days Session Dose Total Dose [id number] 08/01/2023 8 2,000 cGy 2,000 cGy [id number] 07/31/2023 7 1,000 cGy 3,000 cGy [id number] HumL 07/30/2023 6 1,000 cGy 3,000 cGy
--- OUTSIDE RECORDS SUMMARY | 2023-12-26 13:25 | XMS_ITS | Encounter Summary ---
Author Organization [facility] Address [address] [place] [address] Care Team Providers Care Bridge Club Manager Name Role Phone Elsewhere, Pcp Primary Care Provider Unavailabl e Reason for Referral * MRI/CAT/PET Scan (Routine) - Closed Specialty Diagnoses / Procedures Referred By Contac t Referred To Contact Diagnoses Primary Malignant Neoplasm Of Prostate (HCC) Procedures PET CT Skull to Thigh PSMA Marilin Kaiser M.D. [address] [place] [address] [facility] Region Referral ID Status Reason Start Date Expiration Date Visits Re quested Visits Authorized [id number] Closed 12/18/2023 12/17/2024 1 1 Encounter Details Date Type Department Care Team (Late st Contact Info) Description 12/18/2023 Orders Only Department of Oncology in [place], [place] [address] [place] [address] Marilin Kaiser M.D. [address] [place] [phone] Primary Malignant Neoplasm Of Prostate (HCC) (Primary [...] How often do you attend chur or faith services? Never 12/21/2021 Do you belong to any clubs o r organizations such as religious groups, unions, fraternal or athletic groups, or [...] and heating? Not hard at all 01/24/2023 [facility] of Occupat ional Health - Occupational Stress [...] your living situation today? I have a [facility] place to live 01/24/2023 Education Answer Date Recorded What is the highest level of school you have completed or the highest degree you have received? Master's degree (e.g., MA, MS, Gail, MEd, BEE BREEDER, JAMIE) 12/21/2021 Sex and Gender Information Value Date Recorded Sex Assigned at Male 12/21/2021 7:22 AM CDT Gender Identity Male 12/21/2021 7:22 AM CDT Sexual Orientation Straight 12/21/2021 7: 22 AM CDT documented as of this encounter Plan of Treatment Not on file documented as of this encounter Results * PET CT Skull [...] with prostatic adenocarcinoma. Marilin CROFT [place] PROCEDURES documented in this encounter Visit Diagnoses Diagnosis Primary Malignant Neoplasm Of Prostate (HCC)- Primary Primary Malignant Neoplasm Of Prostate (HCC) documented in this encounter Care Teams Bridge Club Manager Relationship Specialty Start Date End Date Elsewhere, Pcp PCP - General Family Medicine 08/31/20 documented as of this encounter
--- OUTSIDE RECORDS SUMMARY | 2023-12-26 13:25 | XMS_ITS | Clinical Summary ---
Author Organization [facility] Address [place], [place] [address] Care Team Providers Care Ingot Header Name Role Phone Rivas Torres MD Primary Care Provider [phone] Allergies Active Allergy Reactions Criticality Noted Date Comments Allopurinol Itching 04/26/2017 Medications Medication Sig Dispensed Refills Start Date End Date Status ASPIRIN 81 MG TAB take 1 tablet (81mg) by oral route once daily 0 05/12/2008 Active leuprolide, 6 month, (LUPRON DEPOT, 6 MONTH,) 45 mg injection Inject 45 mg intramuscular EVERY 6 MONTHS. 0 05/02/2015 Active medication order composer Calcium 1,200 0 01/17/2022 Active cyanocobalamin (VITAMIN B12) 1,000 mcg tabletIndications: Vitamin B12 deficiency Taking 500 mcg every 3 days 0 10/22/2022 Active fluorouracil 5% topical (EFUDEX) 5 % creamIndications:A ctinic keratoses APPLY TO AFFECTED AREA ONE DAY EVERY WEEK. 40 g 5 02/20/2023 Active lisinopriL (PRINIVIL; ZESTRIL) 20 mg tabletIndications: Essential hypertension Take 0.5 Tablets (10 mg) by mouth two times daily. Dose decrease 03/13/23 90 Tablet 3 03/20/2023 Active Additional Information Patient taking differently: 20 mgOralDAILY, Dose decrease 03/13/23, Informant: Patient's Recall, Reported on 2023 chlorthalidone (HYGROTON) 25 mg tabletIndications: Essential hypertension 1/2 tablet twice daily 90 Tablet 3 03/20/2023 Active rosuvastatin (CRESTOR) 5 mg tabletIndications: Hyperlipidemia LDL goal <130 Take 1 Tablet (5 mg) by mouth at bedtime. 90 Tablet 3 03/20/2023 Active tamsulosin (FLOMAX) 0.4 mg capsuleIndications :Benign prostatic hyperplasia with weak urinary stream Take 2 Capsules (0.8 mg) by mouth once daily after a meal. 180 Capsule 3 03/20/2023 Active potassium chloride (KLOR-CON M20) 20 mEq extended-release tablet (part/cryst)Indica tions:Hypokalemia Take 2 Tablets (40 mEq) by mouth two times daily with meals. 360 Tablet 4 09/13/2023 Active meloxicam 15 mg tabletIndications: Arthritis of knee TAKE ONE TABLET BY MOUTH ONCE DAILY NEEDED 30 Tablet 3 2023 Active darolutamide (NUBEQA) 300 mg tablet Take 600 mg by mouth two times daily with meals. Active oxyCODONE-acetamin ophen (PERCOCET) 5-325 mg per tabletIndications: Post-operative state Take 1-2 Tablets by mouth every 6 hours if needed for Pain. Max acetaminophen dose: 4000mg in 24 hrs. 6 Tablet 10/03/2023 Active Active Problems Problem Noted Date Diagnosed Date Vitamin B12 deficiency 01/04/2022 Hyperlipidemia LDL goal <130 10/15/2011 Vitamin D deficiency 10/15/2011 Prostate cancer 10/12/2011 Overview: Lupron and Radiation Arthritis of knee 05/12/2008 Overview: Left Unspecified essential hypertension 03/28/2007 Overview: Diagnosed with hypertension at age 52. Goal blood pressure is below 140/90. Personal history of colonic polyps 11/05/2006 Overview: Colonoscopy 01/2010 polyp repeat in 5 years Colonoscopy 01/2015 polyp repeat in 5 years Colonoscopy 06/2020 normal, repeat in 5 years Encounters Date Type Department Care Team Description 12/11/2023 10:00 AM CDT Orders Only [facility] [address] [place] [address] Lab, [place] Outside Order (Severino Rodrigues) 12/11/2023 Travel 12/10/[address] [facility] [address] [place] [address] Rivas Torres MD 12/10/[address] [facility] [address] [place] [address] Rivas Torres MD Outside Order (Ordered by Severino Rodrigues ) 10/03/2023 1:51 PM ROD BUSTER HELPER Anesthesia Event [facility] [address] [place] [address] Juan Bailey MD Clark, Thomas Martin, APPLICATIONS SALES REPRESENTATIVE 10/03/2023 1:36 PM ROD BUSTER HELPER - 10/03/2023 2:47 PM ROD BUSTER HELPER Surgery [facility] [address] [place] [address] Severino Rodrigues MD cystoscopy , left ureteral stent exchange and Prostate biopsy 10/03/2023 11:47 AM ROD BUSTER HELPER - 10/03/2023 5:13 PM ROD BUSTER HELPER Hospital Encounter [facility] [address] [place] [address] Severino Rodrigues MD Post-operative state (Primary Dx) Discharge Disposition: Home Self Care 2023 Travel 10/01/[address] [facility] [address] [place] [address] Rivas Torres MD Refill Request (Meloxicam) from Last 3 Months Immunizations Name Administration Dates Next Due COVID-19 vaccine (Pfizer-Bio NTech 30mcg/0.3mL) 12YO+ MARIA C-SUCROSE DARION VELÁSQUEZ 10/30/2021 COVID-19 vaccine (Pfizer-Bio NTech 30mcg/0.3mL) DARION VELÁSQUEZ 05/24/2021,09/21/2020,08/31/2020 Influenza, High-dose Inactivated 08/08/2016,06/05 Influenza, High-dose Quadriv alent Inactivated 05/22/2023,05/24/2021,05/11/2020 Influenza, Inactivated AIIV4 (Age 65+ Years) Preserv Free 04/13/2022 Influenza, Inactivated IIV3 (Age 65+ Years) Preserv Free 06/03/2019,04/14/2018,05/13/2017 Pneumococcal Poly,23-Valent (Pneumovax) 04/14/20 18 Pneumococcal conj 13-Valent (Prevnar 13) 015 Td (Age >=7 Years) 09/17/1995 Tdap 05/13/2017,10/03/2005 Zoster (Shingrix-RZV, recombinant) 03/08/2021, Family History Medical History Relation Name Comments Good Health Brother Cancer Father bladder, prosta te, colon; started age 72, at 73 of this and liver failure Cancer-breast Mother of metast atic breast cancer at age 76 Good Health Sister Relation Name Status Comments Brother Father (Age 73) Mother (Age 76) Sister Social History Tobacco Use Types Packs/Day Years Used Date Smoking Tobacco: Former Cigarettes 0.5 0.5 0 12/04/1974 - 06/05/1975 Smokeless Tobacco: Never Tobacco Cessation:Counseling Given: Yes Alcohol Use Standard Drinks/Week Comments Not Currently 2 (1 standard drink = 0.6 oz pur e alcohol) PHQ-2 Answer Date Recorded PHQ-2 TOTAL SCORE 0 03/20/2023 Social Connections Answer Date Recorded Frequency of Communication with Friends and Fami ly Not on file 04/15/2023 Alcohol Use Answer Date Recorded How often do you have a drink containing alcohol ? 2 09/13/2023 How many drinks containing a lcohol do you have on a typical day when you are drinking? 0 09/13/2023 How often do you have five or more drinks on one occasion? 0 09/13/2023 Financial Resource Strain Answer Date R ecorded Difficulty of Paying Living Expenses 3 04/13/2022 Difficulty of Paying Living Expenses Not on file 04/13/2022 Food Insecurity Answer Date Recorded Worried About Running Out of Food in the Last Ye ar 1 04/13/2022 Transportation Needs Answer Date Record ed Lack of Transportation (Medical) 1 04/13/2022 Housing Stability Answer Date Recorded Unable to Pay for Housing in the Last Year 1 04/13/2022 Sex and Gender Information Value Date Recorded Sex Assigned at Not on file Gender Identity Not on file Sexual Orientation Not on file Obstetrics History Last Filed Vital Signs Vital Sign Reading Time Taken Comments Blood Pressure 155/89 10/03/2023 4:32 PM ROD BUSTER HELPER Pulse 89 10/03/2023 4:32 PM ROD BUSTER HELPER Temperature 36.2 ??C (97.2 ??F) 10/03/2023 4:32 PM CS T Respiratory Rate 16 10/03/2023 4:32 PM ROD BUSTER HELPER Oxygen Saturation 98% 10/03/2023 4:32 PM ROD BUSTER HELPER Inhaled Oxygen Concentration - - Weight 90.4 kg (199 lb 4.8 oz) 10/03/2023 1:00 P M ROD BUSTER HELPER Height 185.4 cm (6' 1) 10/03/2023 1:00 PM ROD BUSTER HELPER Body Mass Index 26.29 10/03/2023 1:00 PM ROD BUSTER HELPER Plan of Treatment Upcoming Encounters Date Type Department Care Team (Latest Contact Info) Description 06/11/2024 7:15 AM ROD BUSTER HELPER Hospital Encounter [facility] [address] [place] [address] Severino Rodrigues MD [address] [place] [address] 06/11/2024 7:15 AM ROD BUSTER HELPER - 06/11/2024 8:31 AM ROD BUSTER HELPER Surgery [facility] [address] [place] [address] Severino Rodrigues MD [address] [place], [place] [address] cystoscopy, left ureteral stent exchange Scheduled Procedures Name Priority Associated Diagnoses Date/Ti me CYSTOSCOPY EXCHANGE URETERAL STENT Elective N13.30 Unspecified hydronephrosis 06/11/2024 7:15 AM ROD BUSTER HELPER Health Maintenance Due Date Last Done Comments COVID-19 vaccine series (2022- season) 2023 05/22/2023, 05/21/2022, 10/30/2021, Additional history exists BMI (ht and wt on same day) for age 18+ 03/20/2024 03/20/2023, 01/25/2023, 10/22/2022, Additional history exists Depression screening for age 12+ 03/20/2024 03/20/2023, 01/25/2023, 10/30/2021, Additional history exists Medicare Wellness for age 65+ 03/20/2024, 10/30/2021, 04/14/2018, Additional history exists Influenza for age 65+ 04/05/2024 05/22/2023 , 04/13/2022, 05/24/2021, Additional history exists Tetanus booster 05/13/2027 05/13/2017, 03/08/2005, 09/17/1995 Tdap Completed 05/13/2017, 10/03/2005 Pneumococcal series for age 65+ Completed 8, 05/02/2015 Hepatitis C screening for ag e 18-79 Completed 05/19/2018 Zoster (shingles) series for age 50+ Completed 03/08/2021, 01/04/2021 Medical Devices Implanted Type Area Control Analyst Device Identifier Shelf Expiration Date Model / Serial / Lot Stent Uret [id number] Percuflex Hydroplus - [id number] Implanted:Qty: 1 on 02/01/2023 by Severino Rodrigues MD at [facility] Left: Ureter [facility] 03/07/2025 [id number] / / [id number] Stent Uret [id number] Percuflex Hydroplus - [id number] Implanted:Qty: 1 on 10/03/2023 by Severino Rodrigues MD at [facility] Left: Ureter [facility] 03/29/2026 [id number] / / [id number] Procedures Procedure Name Priority Date/Time Associated Diagnosis Comments URINE CULTURE Routine 12/11/2023 8:03 AM CDT Hematuria syndrome XR RETROGRADE PYELOGRAM W/WO KUB Routine 10/03/2023 2:29 PM ROD BUSTER HELPER PATH TISSUE EXAM Today 10/03/2023 2:21 PM ROD BUSTER HELPER ENDOTRACHEAL TUBE Routine 10/03/2023 2:0 0 PM ROD BUSTER HELPER ENDOTRACHEAL TUBE Routine 10/03/2023 2:0 0 PM ROD BUSTER HELPER ENDOTRACHEAL TUBE Routine 10/03/2023 2:0 0 PM ROD BUSTER HELPER CYSTOSCOPY EXCHANGE URETERAL STENT Elective 10/03/2023 1:34 PM ROD BUSTER HELPER N13.30 Unspecified hydronephrosis Case Notes C ARM Special Needs WT 210 ANTI HCV Routine 05/19/2018 7:38 AM CDT Need for hepatitis C screening test from Last 3 Months or Most Recently Relevant to Health Maintenance Results * URINE CULTURE (12/11/2023 8:03 AM CDT) CULTURE No growth (<1,000 CFU/mL) 12/12/2023 11:32 AM CDT [facility] Urine URINE SPECIMEN / Unknown Non-Blood / Unknown 12/11/2023 8:03 AM CDT 12/11/2023 8:03 AM CDT Rivas Torres MD [facility] [address] [place] [address], * XR RETROGRADE PYELOGRAM W/WO KUB (10/03/2023 2:29 PM ROD BUSTER HELPER) Anatomical Region Laterality Modality KIDNEYS, Abdomen Radio Fluorosco py Impressions 10/03/2023 2:37 PM ROD BUSTER HELPER Intraprocedural fluoroscopy. ??See procedure note for details. ?? Fluoroscopy time 0.2 minutes. Narrative 10/03/2023 2:37 PM ROD BUSTER HELPER EXAM: Retrograde pyelogram INDICATION: Stones COMPARISON: 02/01/2023 FINDINGS: 5 intraprocedural fluoroscopic images show exchange of a left nephroureteral stent. ??Contrast is injected into the left collecting system which shows some mildly dilated calyces. ??No intravasation or extravasation. Severino Rodrigues MD GENERAL IMAGING * PATH TISSUE EXAM (10/03/2023 2:21 PM ROD BUSTER HELPER) Case Report Pathology Report ?Case: [id number] ? Authorizing Provider: ??Severino Rodrigues MD ?Collected: ? 10/03/2023 1421 ? Ordering Location: ? [facility] ?Received: ?10/03/2023 1437 ? Hospital ? Pathologist: ? Pk Pruitt MD ? Specimen: ?Prostate, Prostate tissue ? 10/07/2023 11:09 AM [email or web address] Final Diagnosis A) PROSTATE TISSUE, BIOPSY: 1. Bladder neck mucosa with ischemic necrosis 2. Negative for malignancy 10/07/2023 11:09 AM [email or web address] Clinical Information 78-year-old with a history of Rosa Maria 3+4 prostate cancer diagnosed in 2010, PSA 4.85. Received radiation and hormonal therapy in 2010, cryotherapy in 2018 for local recurrence. Noted to have gross hematuria in 2022, prostate biopsies at that time demonstrated Jemison 5+5 prostate cancer, PSA 1.5. PET/CT in January 2023 demonstrates left hydronephrosis and skeletal metastasis. Current cystoscopy demonstrates narrowing at the bladder neck with associated tissue flap. Biopsied. 10/07/2023 11:09 AM ROD BUSTER HELPER [facility] Gross Description A) Received in formalin, labeled with the patient's name and prostate tissue, is a 1 gram, 1.0 x 0.6 x 0.2 cm aggregate of multiple grimaldo rubbery tissue fragments. ??The specimen is entirely submitted in 1 cassette. JAL 10/03/2023 ?? 10/07/2023 11:09 AM ROD BUSTER HELPER [facility] Microscopic Description The final diagnosis is based on microscopic examination of appropriate sections of all specimens. 10/07/2023 11:09 AM [facility] Additional Information Interpreted at [facility] - [address] [facility] [address], [place] [address] 10/07/2023 11:09 AM [facility] Tissue SPECIMEN FROM PROSTATE / Unknown 10/03/2023 2:21 PM ROD BUSTER HELPER 10/03/2023 2:37 PM ROD BUSTER HELPER Severino Rodrigues MD PATHOLOGY/CYTOLOGY [facility] [address] [place] [address], * HCHG TUBE PR1, HCHG STYLET PR1, HCHG MOUTHPIECE PR1 (10/03/2023 2:00 PM ROD BUSTER HELPER) Narrative Fredis Thorpe CRNA - 10/03/2023 2:00 PM ROD BUSTER HELPER Fredis Thorpe CRNA ? 10/03/2023 ??2:02 PM Procedure: ETT Patient location during procedure: OR ETT Properties Mask Ventilation: easy Final Technique: direct laryngoscopy, cricoid pressure and rapid sequence induction Type: straight Location: oral Cuffed: yes Tube Size: 7.0 mm Stylet: yes Laryngoscope Blade: Luong Blade Size: 2 Insertion Attempts: 1 Placement Verification: auscultation, end tidal CO2 and symmetrical chest wall movement Assessment: pharynx clear, atraumatic and dentition unchanged Secured at: 20 Measured From: teeth Tooth guard used and removed: yes Difficulty: 0 (not difficult) Fredis Thorpe APPLICATIONS SALES REPRESENTATIVE ANESTHESIA PX N OTE ORDERABLES * ANTI HCV [41382.2] (05/19/2018 7:38 AM CDT) HEPATITIS C ANTIBODY Non-React rafia Non-React rafia 05/19/2018 3:00 PM CDT [facility] Comment:Antibodies to HCV no t detected; does not exclude the possibility of exposure to HCV. Blood BLOOD SPECIMEN / Unknown Venipuncture / Unknown 05/19/2018 7:38 AM CDT 05/19/2018 7:39 AM CDT Rivas Torres MD SEND OUTS [facility] [address] [place] [address], from Last 3 Months or Most Recently Relevant to Health Maintenance Advance Directives * Full Code (Latest Code Status on File) Date Activated Date Inactivated Comments 10/03/2023 12:21 PM 10/03/2023 7:18 PM Question Answer Comments Code Status Discussion: Unable to Assess Preferences, Provider to review later * Full Code Date Activated Date Inactivated Comments 02/01/2023 9:10 AM 02/01/2023 6:04 PM Question Answer Comments Code Status Discussion: Not Discussed Care Teams Ingot Header Relationship Specialty Start Date End Date Rivas Torres MD [address] [place] [address] PCP - General 01/09/06
--- OUTSIDE RECORDS SUMMARY | 2023-12-26 13:26 | XMS_ITS | Data Portability ---
Author Organization [facility], [facility] Address [address] [place] [address] Care Team Providers Care Steel Analyst Name Role Phone BRADY WATERS Primary Care Provider Assessment No assessment recorded. Plan of Treatment Reminders Order Date Submit Date Provider Last Modified By Organization Details Last Modified Time Details Appointments ESTABLISH ED 20 2023 02:30P Josh Rodrigues MD Not available Not available Not available HOSPITAL 60 2023 07:30A Josh Rodrigues MD Not available Not available Not available Lab urinalysi s, dipstick 2023 024 [facility], [address], [place], [address], 11/04/2023 14:27:12 culture, urine 2023 024 [facility], [address], [address], [place], [address], 11/05/2023 10:11:07 urinalysi s, dipstick 2023 024 [facility], [address], [place], [address], 09/02/2023 14:46:28 urinalysi s, dipstick 2022 023 [facility], [address], [place], [address], 11/28/2022 10:45:27 PSA, serum or plasma 2022 023 [email or web address] [facility], [address] [place], [address], 10/16/2022 09:54:18 PSA, total, serum or plasma - Needed in January 022 [email or web address] 0 [facility], [address] [place], [address], 08/01/2022 10:24:02 PSA, total, serum or plasma - Needed in October 022 0 [facility], [address] [place], [address], 08/01/2022 10:24:02 PSA, serum or plasma 2021 022 0 [facility], [address], [place], [address], 05/02/2022 16:31:23 PSA, total, serum or plasma 2021 022 [email or web address] 0 [facility], [address] [place], [address], 05/14/2022 12:11:32 Referral None recorded. Procedures None recorded. Surgeries cystoscop y with ureteral stent exchange (SURG) 2023 024 Not available 12/20/2023 11:12:00 cystoscop y with ureteral stent exchange (SURG) 2023 024 Not available 09/02/2023 17:41:51 cystouret hroscopy, with calibrati on and/or dilation of urethral stricture or stenosis (SURG) 2022 023 [email or web address] Not available 11/26/2022 15:27:50 Imaging None recorded. Medication Orders Cipro 500 mg tablet [address], [address], 09/02/2023 14:25:04 Eligard 45 mg (6 month) subcutane ous syringe 2022 023 [email or web address], [address], 01/23/2023 12:48:05 Myrbetriq 50 mg tablet,ex tended release [address], [address], 09/02/2023 14:26:08 Eligard 45 mg (6 month) subcutane ous syringe [address], [address], 07/23/2022 12:05:10 Patient TargetsNo targets recorded. Patient Instructions Encounter Date Encounter Id Patient Instructions Last Modified By Organization Details Last Modified Time 05/02/2022 [id number] ?? Not available 05/02 09:55:06 Reason for Referral None Reported. Results Created Date Observation Date Name Description Value Unit Range Abnormal Flag LastModifiedBy Organization Detail LastModifiedTime 05/02/2005/02/2022 PSA, serum or plasm a PSA 0.25 ng/mL 0-4.0 Not Available [facility] [address], [place], [address], 05/02/2022 16:16:49 11/29/19 23 11/28/2022 urina lysis , dipst ick Color-Status Yellow Not Available [facility] [address], [place], [address], 11/28/2022 10:30:30 11/29/19 23 11/28/2022 urina lysis , dipst ick pH-Status 7.5 Not Available [facility] [address], [place], [address], 11/28/2022 10:30:30 11/29/19 23 11/28/2022 urina lysis , dipst ick Blood-Status Large Not Available [facility] [address], [place], [address], 11/28/2022 10:30:30 11/29/19 23 11/28/2022 urina lysis , dipst ick Leuko-Status Trace Not Available [facility] [address], [place], [address], 11/28/2022 10:30:30 09/02/19 24 09/02/2023 urina lysis , dipst ick Color-Status Yellow Not Available [facility] [address], [place], [address], 09/02/2023 14:28:46 09/02/19 24 09/02/2023 urina lysis , dipst ick Clarity-Stat us Clear Not Available [facility] [address], [place], [address], 09/02/2023 14:28:46 09/02/19 24 09/02/2023 urina lysis , dipst ick Sp Hope-Stat us 1.020 Not Available [facility] [address], [place], [address], 09/02/2023 14:28:46 09/02/19 24 09/02/2023 urina lysis , dipst ick pH-Status 7.0 Not Available [facility] [address], [place], [address], 09/02/2023 14:28:46 09/02/19 24 09/02/2023 urina lysis , dipst ick Nitrates-Sta tus negati ve Not Available [facility] [address], [place], [address], 09/02/2023 14:28:46 09/02/19 24 09/02/2023 urina lysis , dipst ick Blood-Status Modera te Not Available [facility] [address], [place], [address], 09/02/2023 14:28:46 09/02/19 24 09/02/2023 urina lysis , dipst ick Leuko-Status Trace Not Available [facility] [address], [place], [address], 09/02/2023 14:28:46 09/02/19 24 09/02/2023 urina lysis , dipst ick Specimen Type Voided Not Available [facility] [address], [place], [address], 09/02/2023 14:28:46 09/02/19 24 09/02/2023 urina lysis , dipst ick Performed by Carlos jenkins RN Not Available [facility] [address], [place], [address], 09/02/2023 14:28:46 11/04/19 24 11/04/2023 URINE CULTU RE final report MICROB IOLOGY RESULT S Not Available [facility] [address], [place], [address], 11/05/2023 10:11:06 11/04/19 24 11/04/2023 urina lysis , dipst ick Color-Status Yellow Not Available [facility] [address], [place], [address], 11/04/2023 14:02:20 11/04/19 24 11/04/2023 urina lysis , dipst ick Clarity-Stat us Clear Not Available [facility] [address], [place], [address], 11/04/2023 14:02:20 11/04/19 24 11/04/2023 urina lysis , dipst ick Sp Hope-Stat us 1.020 Not Available [facility] [address], [place], [address], 11/04/2023 14:02:20 11/04/19 24 11/04/2023 urina lysis , dipst ick pH-Status 7.0 Not Available [facility] [address], [place], [address], 11/04/2023 14:02:20 11/04/19 24 11/04/2023 urina lysis , dipst ick Protein-Stat us >=9.0 Not Available [facility] [address], [place], [address], 11/04/2023 14:02:20 11/04/19 24 11/04/2023 urina lysis , dipst ick Urobilinogen -Status 0.2 Not Available [facility] [address], [place], [address], 11/04/2023 14:02:20 11/04/19 24 11/04/2023 urina lysis , dipst ick Nitrates-Sta tus negati ve Not Available [facility] [address], [place], [address], 11/04/2023 14:02:20 11/04/19 24 11/04/2023 urina lysis , dipst ick Blood-Status Modera te Not Available [facility] [address], [place], [address], 11/04/2023 14:02:20 11/04/19 24 11/04/2023 urina lysis , dipst ick Leuko-Status Trace Not Available [facility] [address], [place], [address], 11/04/2023 14:02:20 11/04/19 24 11/04/2023 urina lysis , dipst ick Specimen Type Voided Not Available [facility] [address], [place], [address], 11/04/2023 14:02:20 11/04/19 24 11/04/2023 urina lysis , dipst ick Performed by [facility] RN Not Available [facility] [address], [place], [address], 11/04/2023 14:02:20 10/11/19 23 09/17/2022 CT, urogr am No observ ation record ed. [email or web address] [facility] [address] [place], [address], 10/10/2022 16:57:24 11/30/19 23 11/28/2022 bladd er scan (PROC ) No observ ation record ed. BARCODE Not Available 11/29/2022 09:07:29 01/18/20 23 01/10/2023 PET-C T, skull base to mid-t high scan No observ ation record ed. [email or web address] Not Available 01/17/2023 15:31:54 Result Notes None recorded. Procedures Surgical History Date Name Laterality Status Provider Name and Address Organization Details Recorded Time 4 Urinalysis completed Marc kang [facility] 11/04/2023 14:02:05 4 Bladder Scan completed Severino Rodrigues MD [address] [place] [address],[address] [place] [address], [address], [facility] 11/04/2023 14:13:12 4 Urinalysis completed Severino Rodrigues MD [address] [place] [address],[address] [place] [address], [address], [facility] 09/02/2023 14:26:49 4 Bladder Scan completed Severino Rodrigues MD [address] [place] [address],[address], [place], [address], [facility] 09/02/2023 14:26:41 3 Bladder Scan completed Severino Rodrigues MD [address] [place] [address],[address], [place], [address], [facility] 01/23/2023 11:45:38 3 [facility] 12:47:33 3 Bladder Scan completed Severino Rodrigues MD [address] [place] [address],[address], [place], [address], [facility] 11/28/2022 10:30:26 3 CYSTOURETHROSCO PY, WITH CALIBRATION AND/OR DILATION OF URETHRAL STRICTURE OR STENOSIS (SURG) [facility] 11/15/2022 11:26:31 3 Cystoscopy- male completed Severino Rodrigues MD [address] [place] [address],[address], [place], [address], [facility] 10/15/2022 22:46:40 2 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/blood draw completed Severino Rodrigues MD [address] [place] [address],[address], [place], [address], [facility] 05/02/2022 16:17:09 9 colonoscopy completed Severino Rodrigues MD [address] [place] [address],[address], [address], [facility] 07/23/2022 11:34:54 Imaging Results Imaging Date Name Status [facility]Modified by [facility] Details LastModified Time 09/17/2022 CT, urogram completed [email or web address] [facility] [address] [place], [address], 10/10/2022 16:57:24 11/28/2022 bladder scan (PROC) completed BARCODE Information not available 11/29/2022 09:07:29 01/10/2023 PET-CT, skull base to mid-thigh scan completed [email or web address] Information not available 01/17/2023 15:31:54 Procedure Notes None recorded. Medical Equipment None Reported. Allergies Allergen ID Allergen Name Allergen Category Reaction Reaction Severity Criticality Documentation Date Start Date Code Code System Note Provider Name and Address Organization Details Recorded Time 082170 allopurin ol medicatio n Not available Not available Not available 01/21/20202018 519 RxNorm Not Available [facility] 0 00:42:15 Medications Name Sig Start Date Stop Date Status Note LastModified by Organization Details LastModified Time oxybutynin chloride ER 10 mg tablet,exte nded release 24 hr TAKE 1 TABLET (10 MG) BY MOUTH ONCE DAILY. 10/15 completed Not Available Not Available Not Available hydrocodone 5 mg-acetamin ophen 325 mg tablet 11/28 completed Not Available Not Available Not Available prochlorper azine maleate 5 mg tablet TAKE ONE TABLET BY MOUTH THREE TIMES DAILY NEEDED FOR NAUSEA AND VOMITING 11/03 completed Not Available Not Available Not Available meloxicam 15 mg tablet TAKE ONE TABLET BY MOUTH ONCE DAILY NEEDED 11/03 completed Not Available Not Available Not Available lisinopril 20 mg tablet TAKE ONE-HALF TABLET (10 MG) BY MOUTH TWO TIMES DAILY. DOSE DECREASE 03/13/23 active Not Available Not Available No t Available prednisone 20 mg tablet TAKE 2 TABLETS (40 MG) BY MOUTH ONCE DAILY WITH A MEAL FOR 5 DAYS. 10/15 completed Not Available Not Available Not Available fluorouraci l 5 % topical cream APPLY 1 APPLICATI ON TOPICALLY TWICE A DAY; APPLY TO LEFT LEG FOR 4 WEEKS. 09/02 completed Not Available Not Available Not Available chlorthalid one 25 mg tablet TAKE ONE-HALF TABLET BY MOUTH TWICE A DAY active Not Available Not Available No t Available amlodipine 5 mg tablet TAKE ONE TABLET (5 MG) BY MOUTH ONCE DAILY. 09/02 completed Not Available Not Available Not Available ciprofloxac in 500 mg tablet TAKE ONE TABLET BY MOUTH EVERY 12 HOURS FOR 4 DAYS 09/02 completed Not Available Not Available Not Available sulfamethox azole 800 mg-trimetho prim 160 mg tablet TAKE 1 TABLET BY MOUTH EVERY 12 HOURS FOR 7 DAYS. 09/02 completed Not Available Not Available Not Available oxycodone-a cetaminophe n 5 mg-325 mg tablet 11/03 completed Not Available Not Available Not Available potassium chloride ER 20 mEq tablet,exte nded release(par t/cryst) TAKE 2 TABLETS (40 MEQ) BY MOUTH TWO TIMES DAILY WITH MEALS. active Not Available Not Available No t Available prednisolon e acetate 1 % eye drops,suspe nsion INSTILL 1 DROP INTO THE EYE(S) TWICE A DAY 09/02 completed Not Available Not Available Not Available tamsulosin 0.4 mg capsule TAKE 2 CAPSULES (0.8 MG) BY MOUTH ONCE DAILY AFTER A MEAL. active Not Available Not Available No t Available cephalexin 500 mg capsule TAKE 1 CAPSULE (500 MG) BY MOUTH 3 TIMES DAILY FOR 10 DAYS. 07/23 completed Not Available Not Available Not Available cefuroxime axetil 500 mg tablet TAKE 1 TABLET EVERY 12 HOURS BY ORAL ROUTE FOR 7 DAYS. 11/03 completed Not Available Not Available Not Available ondansetron 4 mg disintegrat ing tablet DISSOLVE 1 TABLET ON THE TONGUE EVERY EIGHT HOURS NEEDED FOR NAUSEA AND VOMITING 09/02 completed Not Available Not Available Not Available rosuvastati n 5 mg tablet TAKE 1 TABLET (5 MG) BY MOUTH AT BEDTIME. active Not Available Not Available No t Available Eligard 45 mg (6 month) subcutaneou s syringe Inject 45 mg by subcutane ous route. 2022 active Not Available Not Available Not Avai lable calcium active Not Available Not Avail able Not Available Vitamin D active Not Available Not Mary ilable Not Available Myrbetriq 50 mg tablet,exte nded release Take 1 tablet every day by oral route. 09/02 completed Not Available Not Available Not Available Xtandi 40 mg capsule 11/03 completed Not Available Not Available Not Available Nubeqa active Not Available Not Availa ble Not Available Vitals Date Recorded Body height Body mass index (BMI) Body weight Provider Name and Address Organization Details Last Updated DateTime 05/02/2022 185.42 cm 26.4 kg/m2 64242.47 g Severino Rodrigues MD [address], [place], [address], [facility] 05/02/2022 16:16:12 Date Recorded Body height Body mass index (BMI) Body weight Provider Name and Address Organization Details Last Updated DateTime 07/23/2022 185.42 cm 26.4 kg/m2 49171.47 farhana Rodrigues MD [address] [place] [address],[address], [address], [facility] 07/23/2022 11:33:33 Date Recorded Body height Body mass index (BMI) Body weight Provider Name and Address Organization Details Last Updated DateTime 10/15/2022 185.42 cm 28.8 kg/m2 29942.14 farhana Rodrigues MD [address] [place] [address],[address], [address], [facility] 10/15/2022 14:42:13 Date Recorded Body height Body mass index (BMI) Body weight Provider Name and Address Organization Details Last Updated DateTime 11/28/2022 185.42 cm 28.8 kg/m2 96318.14 farhana [place] [facility] 11/28/2022 10:26:34 Date Recorded Body height Body mass index (BMI) Body weight Provider Name and Address Organization Details Last Updated DateTime 01/23/2023 185.42 cm 28.8 kg/m2 25409.14 farhana Rodrigues MD [address] [place] [address],[address], [address], [facility] 01/23/2023 11:42:10 Date Recorded Body height Provider Name an d Address Organization Details Last Updated DateTime 09/02/2023 185.42 cm Severino Rodrigues MD [address] [place] [address],[address], [address], [facility] 09/02/2023 14:24:14 Date Recorded Body height Body mass index (BMI) Body weight Provider Name and Address Organization Details Last Updated DateTime 11/04/2023 185.42 cm 27.7 kg/m2 13928.4 farhana Rodrigues MD [address] [place] [address],[address], [address], [facility] 11/04/2023 14:09:38 Social History Question Answer Notes LastModified by Organizat ion Details LastModified Time Tobacco Smoking Status Former Smoker Severino Rodrigues MD [address] [place] [address],[address] [place] [address], [address], [facility] 05/02/2022 16:16:26 What Is Your Level Of Alcohol Consumption? Occasional Information not available 09/02/2023 What Is Your Level Of Caffeine Consumption? Moderate Information not available 11/04/2023 When Did You Quit Smoking? 16+yearssincel astcigarette Information not available 07/23/2022 What Was The Date Of Your Most Recent Tobacco Screening? 11/04/2023 Information not available 11/04/2023 Have You Ever Been Counseled For Unhealthy Alcohol Use? No Information not available 11/04/2023 Do You Use Any Illicit Or Recreational Drugs? No Information not available 11/04/2023 Do You Or Have You Ever Used Any Other Forms Of Tobacco Or Nicotine? No Information not available 11/04/2023 How Many Days In The Past Year Have You Consumed 5 Or More Drinks? 0 Information no t available 11/04/2023 Sex: Male Functional Status None recorded. Mental Status None recorded. Family History Relationship Description Onset Age of this Age Resolved Age Notes Father Family history of pr ostate cancer Mother Family history of br east cancer Medical History Condition Response GERD/Acid Reflux N Heart Disease N High Blood Pressure Y Cancer Y High Cholesterol Y Immunizations Vaccine Type Date Status Provider Name and Address Organization Details Recorded Time influenza, trivalent, adjuvanted 04/14/2018 lg Rodrigues MD [address] [place] [address],[address], [address], [facility] 09/02/2023 14:24:21 influenza, trivalent, adjuvanted 05/13/2017 lg Rodrigues MD [address] [place] [address],[address], [address], [facility] 09/02/2023 14:24:21 influenza, trivalent, adjuvanted 06/03/2019 lg Rodrigues MD [address] [place] [address],[address], [address], [facility] 09/02/2023 14:24:21 zoster recombinant 01/04/2021 lg Ramos en, MD [address] [place] [address],[address], [place], [address], [facility] 09/02/2023 14:24:21 zoster recombinant 03/08/2021 completed Severino kelly MD [address] [place] [address],[address], [place], [address], [facility] 09/02/2023 14:24:21 influenza, high-dose, quadrivalent 05/11/2020 completed Severino Rodrigues MD [address] [place] [address],[address], [place], [address], [facility] 09/02/2023 14:24:21 influenza, high-dose, quadrivalent 05/24/2021 completed Severino Rodrigues MD [address] [place] [address],[address], [place], [address], [facility] 09/02/2023 14:24:21 Influenza vaccine, quadrivalent, adjuvanted 04/13/2022 completed Severino Rodrigues MD [address] [place] [address],[address], [place], [address], [facility] 09/02/2023 14:24:21 COVID-19, mRNA, LNP-S, PF, 30 mcg/0.3 mL dose 08/31/2020 completed Severino Rodrigues MD [address] [place] [address],[address], [place], [address], [facility] 09/02/2023 14:24:21 COVID-19, mRNA, LNP-S, PF, 30 mcg/0.3 mL dose 09/21/2020 completed Severino Rodrigues MD [address] [place] [address],[address], [place], [address], [facility] 09/02/2023 14:24:21 COVID-19, mRNA, LNP-S, PF, 30 mcg/0.3 mL dose 05/24/2021 completed Severino Rodrigues MD [address] [place] [address],[address], [place], [address], [facility] 09/02/2023 14:24:21 COVID-19, mRNA, LNP-S, PF, 30 mcg/0.3 mL dose, dave-sucrose 10/30/2021 completed Severino Rodrigues MD [address] [place] [address],[address], [place], [address], [facility] 09/02/2023 14:24:21 COVID-19, mRNA, LNP-S, bivalent, PF, 50 mcg/0.5 mL or 25mcg/0.25 mL dose 05/21/2022 completed Severino Rodrigues MD [address] [place] [address],[address], [place], [address], [facility] 09/02/2023 14:24:21 influenza, unspecified formulation 05/24/2008 completed Severino Rodrigues MD [address] [place] [address],[address] [place] [address], [address], [facility] 09/02/2023 14:24:21 Tdap 10/03/2005 completed Severino Rodrigues MD [address] [place] [address],[address], [place], [address], [facility] 09/02/2023 14:24:21 Tdap 05/13/2017 completed Severino Rodrigues MD [address] [place] [address],[address], [place], [address], [facility] 09/02/2023 14:24:21 Influenza, high dose seasonal 08/08/2016 completed Severino Rodrigues MD [address] [place] [address],[address], [place], [address], [facility] 09/02/2023 14:24:21 Influenza, high dose seasonal 06/14/2014 completed Severino Rodrigues MD [address] [place] [address],[address], [address], [facility] 09/02/2023 14:24:21 pneumococcal polysaccharide PPV23 04/14/2018 completed Severino Rodrigues MD [address] [place] [address],[address], [address], [facility] 10/15/2022 14:42:46 Pneumococcal conjugate PCV 13 05/02/2015 completed Severino Rodrigues MD [address] [place] [address],[address], [place], [address], [facility] 10/15/2022 14:42:46 Past Encounters Encounter ID Performer Location Encounter Start Date Encounter Closed Date Diagnosis/Indication Diagnosis SNOMED-CT Code [id number] MD BAILEE Lee_Dilma [address] [place] [address] 05/02/2022 16:02:47 05/07/2022 10:01:50 Carcinoma of prostate 366242900 Lower urin maria de jesus tract symptoms due to benign prostatic hypertrophy 94180833693070 Increased frequency of urination 056921435 [id number] MD BAILEE Lee_Dilma [address] [place] [address] 07/23/2022 11:22:14 07/27/2022 09:43:06 Carcinoma of prostate 462284494 Lower urin maria de jesus tract symptoms due to benign prostatic hypertrophy 69893866327388 Increased frequency of urination 011421723 [id number] MD BAILEE Lee_Dilma [address] [place] [address] 10/15/2022 14:28:15 10/19/2022 12:05:16 Carcinoma of prostate 149136669 Lower urin maria de jesus tract symptoms due to benign prostatic hypertrophy 42682156778525 Increased frequency of urination 986291174 Urethral stricture 03722 002 Leonidas hematuria 35576723 5 [id number] MD BAILEE Lee_Dilma [address] [place] [address] 11/28/2022 10:16:48 11/30/2022 11:21:06 Carcinoma of prostate 598889973 Lower urin maria de jesus tract symptoms due to benign prostatic hypertrophy 58863982557898 Leonidas hematuria 39857048 5 Increased frequency of urination 555708735 Urethral stricture 56794 002 [id number] MD Monico Lee [address] [place] [address] 01/23/2023 11:17:58 01/31/2023 09:40:24 Urethral stricture 42106085 Carcinoma of prostate 25 6451909 Lower urin maria de jesus tract symptoms due to benign prostatic hypertrophy 65847212297795 Increased frequency of urination 525549406 Leonidas hematuria 28106184 5 [id number] MD Monico Lee [address] [place] [address] 09/02/2023 14:10:29 09/03/2023 11:47:06 Carcinoma of prostate 083886061 Urethral stricture 17407 002 Lower urin maria de jesus tract symptoms due to benign prostatic hypertrophy 20926847804668 Increased frequency of urination 335152181 Leonidas hematuria 84985408 5 Hydronephrosis 34974882 [id number] Severino Rodrigues MD [facility] [address] [place] [address] 11/04/2023 13:47:57 11/05/2023 10:03:04 Carcinoma of prostate 162295871 Hydronephrosis 70821546 Urethral stricture 13394 002 Lower urin maria de jesus tract symptoms due to benign prostatic hypertrophy 21162841691288 Increased frequency of urination 178160012 Leonidas hematuria 63327084 5 Health Concerns Section Related Observation LastModified by Organization Detai ls LastModified Time None Recorded Concern Status LastModified by Organization Details LastModified Time None Recorded Advance Directives Directive None Recorded Payers Encounter Date Sequence Insurance Name Policy Number Policy Simon Covered Member ID Simon Member ID Guarantor Name 11/04/2023 1 [place] [id number] Solis [place] [id number] Solis [place] 09/02/2023 1 [place] [id number] Solis Galoman [id number] Solis Ann [place] 01/23/2023 1 [place] [id number] Solis Galoman [id number] Solis Ann [place] 11/28/2022 1 [place] [id number] Solis [place] [id number] [facility] [place] 10/15/2022 1 [place] [id number] [facility] [place] [id number] [facility] [place] 07/23/2022 1 [place] [id number] Sol[facility] [place] [id number] Sol[facility] [place] 05/02/2022 1 [place] [id number] [facility] [place] [id number] [facility] [place] Notes Date Note Type Note Provider Name and Address Organization Details Recorded Time 05/02/2022 text/html HPI Notes: 76 yo male dx with prostate cancer (T1c - Huntley 3+4 = 7 - bilateral) on 11/28/10 - s/p XRT (completed on 03/28/11) - Hormonal therapy - s/p Cryotherapy of the prostate (05/12/19) by Dr. Yu for local recurrence - started on Enzalutamide in December 2021 (Dr. Ontiveros) He tried Myrbetriq 50 mg daily (helped with urgency - but too expensive). He is on Flomax 0.8 mg daily. 05/02/22 - He presents for follow-up on prostate cancer. He voids every 1-2 hours during the day and 5-6x/night. He has urgency (with occasional leakage) - no dysuria. He reports a slow stream at night. He denies trouble with hot flashes. - PSA - 0.25 PSA - 4.85 (10/30/10) - 0.10 (05/08/17) - 0.71 (11/28/20) - 0.46 (09/21/13) - 0.11 (11/05/17) - 0.67 (02/27/21) - 0.07 (11/30/13) - 0.23 (05/19/18) - 0.76 (06/12/21) - 0.03 (06/07/14) - 0.22 (08/21/18) - 1.03 (09/28/21) - 0.03 (10/05/14) - 0.37 (11/06/18) - 0.70 (01/02/22) - <0.03 (04/25/15) - 0.54 (02/09/19) - 0.40 (02/07/22) - 0.11(07/26/15) - 0.58 (05/11/19) - 0.25 (05/02/22) - 0.33 (10/21/15) - 0.36 (08/17/19) - 0.57 (01/24/16) - 0.41 (11/17/19) - 1.16 (04/27/16) - 0.58 (02/19/20) - 0.16 (07/26/16) - 0.60 (05/26/20) - 0.11 (11/06/16) - 0.60 (05/26/21) - 0.10 (02/04/17) - 0.60 ( Testosterone - 14 (08/21/18) PSMA PET scan (11/30/2021) at [facility] - enhancing lesion in the prostate gland extending into the right seminal vesicle - radiotracer positive left inguinal lymph node and sclerotic osseus lesion in the left supra-acetabular region - suspicious for locally advanced prostate gland neoplasm with left inguinal lymph node and left supra-acetabular region metastases Severino Rodrigues MD [address] [place] [address],[address], [place], [address], [facility] - [facility] 05/02/2022 17:35:02 07/23/2022 text/html HPI Notes: 76 yo male dx with prostate cancer (T1c - Huntley 3+4 = 7 - bilateral) on 11/28/10 - s/p XRT (completed on 03/28/11) - Hormonal therapy - s/p Cryotherapy of the prostate (05/12/19) by Dr. Yu for local recurrence - started on Enzalutamide in December 2021 (Dr. Ontiveros) He tried Myrbetriq 50 mg daily (helped with urgency - but too expensive). He is on Flomax 0.8 mg daily. 05/02/22 - He presents for follow-up on prostate cancer. He voids every 1-2 hours during the day and 5-6x/night. He has urgency (with occasional leakage) - no dysuria. He reports a slow stream at night. He denies trouble with hot flashes. 07/23/22 - He presents for follow-up on prostate cancer. He notes an occasional rare hot flash - has good energy levels. He voids every 1-2 hours during the day and 4-6x/night. + Urgency - no dysuria. PSA - 4.85 (10/30/10) - 0.10 (05/08/17) - 0.71 (11/28/20) - 0.46 (09/21/13) - 0.11 (11/05/17) - 0.67 (02/27/21) - 0.07 (11/30/13) - 0.23 (05/19/18) - 0.76 (06/12/21) - 0.03 (06/07/14) - 0.22 (08/21/18) - 1.03 (09/28/21) - 0.03 (10/05/14) - 0.37 (11/06/18) - 0.70 (01/02/22) - <0.03 (04/25/15) - 0.54 (02/09/19) - 0.40 (02/07/22) - 0.11(07/26/15) - 0.58 (05/11/19) - 0.25 (05/02/22) - 0.33 (10/21/15) - 0.36 (08/17/19) - 0.29 (07/06/22) - 0.57 (01/24/16) - 0.41 (11/17/19) - 1.16 (04/27/16) - 0.58 (02/19/20) - 0.16 (07/26/16) - 0.60 (05/26/20) - 0.11 (11/06/16) - 0.60 (05/26/21) - 0.10 (02/04/17) - 0.60 ( Testosterone - 14 (08/21/18) PSMA PET scan (11/30/2021) at [facility] - enhancing lesion in the prostate gland extending into the right seminal vesicle - radiotracer positive left inguinal lymph node and sclerotic osseus lesion in the left supra-acetabular region - suspicious for locally advanced prostate gland neoplasm with left inguinal lymph node and left supra-acetabular region metastases Severino Rodrigues MD [address] [facility],[address], [place], [address], [facility] - [facility] 07/23/2022 14:01:34 10/15/2022 text/html HPI Notes: 77 yo male dx with prostate cancer (T1c - Rosa Maria 3+4 = 7 - bilateral) on 11/28/10 - s/p XRT (completed on 03/28/11) - Hormonal therapy - s/p Cryotherapy of the prostate (05/12/19) by Dr. Yu for local recurrence - started on Enzalutamide in December 2021 (Dr. Ontiveros) He tried Myrbetriq 50 mg daily (helped with urgency - but too expensive). He is on Flomax 0.8 mg daily. 05/02/22 - He presents for follow-up on prostate cancer. He voids every 1-2 hours during the day and 5-6x/night. He has urgency (with occasional leakage) - no dysuria. He reports a slow stream at night. He denies trouble with hot flashes. 07/23/22 - He presents for follow-up on prostate cancer. He notes an occasional rare hot flash - has good energy levels. He voids every 1-2 hours during the day and 4-6x/night. + Urgency - no dysuria. 10/15/22 - He presents for follow-up on prostate cancer and evaluation of gross hematuria. He reports pink/red urine (at beginning of stream) for 2 weeks (started about 6 weeks ago) He denies abdominal or flank pain - no dysuria. CT Urogram (09/17/22) was unremarkable. He voids every 1-2 hours during the day and 4-6x/night. + Urgency. - UA - moderate blood - no LE PSA - 4.85 (10/30/10) - 0.10 (05/08/17) - 0.71 (11/28/20) - 0.46 (09/21/13) - 0.11 (11/05/17) - 0.67 (02/27/21) - 0.07 (11/30/13) - 0.23 (05/19/18) - 0.76 (06/12/21) - 0.03 (06/07/14) - 0.22 (08/21/18) - 1.03 (09/28/21) - 0.03 (10/05/14) - 0.37 (11/06/18) - 0.70 (01/02/22) - <0.03 (04/25/15) - 0.54 (02/09/19) - 0.40 (02/07/22) - 0.11(07/26/15) - 0.58 (05/11/19) - 0.25 (05/02/22) - 0.33 (10/21/15) - 0.36 (08/17/19) - 0.29 (07/06/22) - 0.57 (01/24/16) - 0.41 (11/17/19) - 0.7 (10/10/22) - 1.16 (04/27/16) - 0.58 (02/19/20) - 0.16 (07/26/16) - 0.60 (05/26/20) - 0.11 (11/06/16) - 0.60 (05/26/21) - 0.10 (02/04/17) - 0.60 ( Testosterone - 14 (08/21/18) PSMA PET scan (11/30/2021) at [facility] - enhancing lesion in the prostate gland extending into the right seminal vesicle - radiotracer positive left inguinal lymph node and sclerotic osseus lesion in the left supra-acetabular region - suspicious for locally advanced prostate gland neoplasm with left inguinal lymph node and left supra-acetabular region metastases CT Urogram (09/17/22) - no kidney stones, renal masses, hydronephrosis or filling defects - Right - benign (1.2 cm) cyst (lower pole) Severino Rodrigues MD [address] [facility],[address], [place], [address], [facility] - [facility] 10/15/2022 22:54:50 11/28/2022 text/html HPI Notes: 77 yo male dx with prostate cancer (T1c - Rosa Maria 3+4 = 7 - bilateral) on 11/28/10 - s/p XRT (completed on 03/28/11) - Hormonal therapy - s/p Cryotherapy of the prostate (05/12/19) by Dr. Yu for local recurrence - started on Enzalutamide in December 2021 (Dr. Ontiveros) He tried Myrbetriq 50 mg daily (helped with urgency - but too expensive). He is on Flomax 0.8 mg daily. - s/p Cystoscopy with dilation (Optilume) of prostatic urethral stricture - (11/09/22) 05/02/22 - He presents for follow-up on prostate cancer. He voids every 1-2 hours during the day and 5-6x/night. He has urgency (with occasional leakage) - no dysuria. He reports a slow stream at night. He denies trouble with hot flashes. 07/23/22 - He presents for follow-up on prostate cancer. He notes an occasional rare hot flash - has good energy levels. He voids every 1-2 hours during the day and 4-6x/night. + Urgency - no dysuria. 10/15/22 - He presents for follow-up on prostate cancer and evaluation of gross hematuria. He reports pink/red urine (at beginning of stream) for 2 weeks (started about 6 weeks ago) He denies abdominal or flank pain - no dysuria. CT Urogram (09/17/22) was unremarkable. He voids every 1-2 hours during the day and 4-6x/night. + Urgency. 11/28/22 - He presents for follow-up on urethral stricture. He states his urination is better now (after 2nd course of abx). He voids every 1-2 hours during the day and 4-6x/night. + Urgency - no dysuria. He states his stream is good. - UA - large blood, trace kely - PVR - 137mL PSA - 4.85 (10/30/10) - 0.10 (05/08/17) - 0.71 (11/28/20) - 0.46 (09/21/13) - 0.11 (11/05/17) - 0.67 (02/27/21) - 0.07 (11/30/13) - 0.23 (05/19/18) - 0.76 (06/12/21) - 0.03 (06/07/14) - 0.22 (08/21/18) - 1.03 (09/28/21) - 0.03 (10/05/14) - 0.37 (11/06/18) - 0.70 (01/02/22) - <0.03 (04/25/15) - 0.54 (02/09/19) - 0.40 (02/07/22) - 0.11(07/26/15) - 0.58 (05/11/19) - 0.25 (05/02/22) - 0.33 (10/21/15) - 0.36 (08/17/19) - 0.29 (07/06/22) - 0.57 (01/24/16) - 0.41 (11/17/19) - 0.7 (10/10/22) - 1.16 (04/27/16) - 0.58 (02/19/20) - 0.16 (07/26/16) - 0.60 (05/26/20) - 0.11 (11/06/16) - 0.60 (05/26/21) - 0.10 (02/04/17) - 0.60 ( Testosterone - 14 (08/21/18) PSMA PET scan (11/30/2021) at [facility] - enhancing lesion in the prostate gland extending into the right seminal vesicle - radiotracer positive left inguinal lymph node and sclerotic osseus lesion in the left supra-acetabular region - suspicious for locally advanced prostate gland neoplasm with left inguinal lymph node and left supra-acetabular region metastases CT Urogram (09/17/22) - no kidney stones, renal masses, hydronephrosis or filling defects - Right - benign (1.2 cm) cyst (lower pole) Severino Rodrigues MD [address] [facility],[address], [place], [address], [place] - [facility] 11/28/2022 10:50:54 01/23/2023 text/html HPI Notes: 77 yo male dx with prostate cancer (T1c - Rosa Maria 3+4 = 7 - bilateral) on 11/28/10 - s/p XRT (completed on 03/28/11) - Hormonal therapy - s/p Cryotherapy of the prostate (05/12/19) by Dr. Yu for local recurrence - started on Enzalutamide in December 2021 (Dr. Ontiveros) - PSAM PET scan (01/10/23) - new Left hydronephrosis - new skeletal mets - prostate enhancement He tried Myrbetriq 50 mg daily (helped with urgency - but too expensive). He is on Flomax 0.8 mg daily. - s/p Cystoscopy with dilation (Optilume) of prostatic urethral stricture - (11/09/22) 10/15/22 - He presents for follow-up on prostate cancer and evaluation of gross hematuria. He reports pink/red urine (at beginning of stream) for 2 weeks (started about 6 weeks ago) He denies abdominal or flank pain - no dysuria. CT Urogram (09/17/22) was unremarkable. He voids every 1-2 hours during the day and 4-6x/night. + Urgency. 11/28/22 - He presents for follow-up on urethral stricture. He states his urination is better now (after 2nd course of abx). He voids every 1-2 hours during the day and 4-6x/night. + Urgency - no dysuria. He states his stream is good. 01/23/23 - He presents for follow-up on urination and Prostate cancer. Recent PSMA PET scan revealed new Left hydronephrosis, new skeletal mets, and enhancement in the prostate. He continues to have frequent urination - voids every 1 hour during the day and 7-8x/night. - PSA - 4.9 - PVR = 244 mL PSA - 4.85 (10/30/10) - 0.10 (05/08/17) - 0.71 (11/28/20) - 0.46 (09/21/13) - 0.11 (11/05/17) - 0.67 (02/27/21) - 0.07 (11/30/13) - 0.23 (05/19/18) - 0.76 (06/12/21) - 0.03 (06/07/14) - 0.22 (08/21/18) - 1.03 (09/28/21) - 0.03 (10/05/14) - 0.37 (11/06/18) - 0.70 (01/02/22) - <0.03 (04/25/15) - 0.54 (02/09/19) - 0.40 (02/07/22) - 0.11(07/26/15) - 0.58 (05/11/19) - 0.25 (05/02/22) - 0.33 (10/21/15) - 0.36 (08/17/19) - 0.29 (07/06/22) - 0.57 (01/24/16) - 0.41 (11/17/19) - 0.7 (10/10/22) - 1.16 (04/27/16) - 0.58 (02/19/20) - 3.6 (01/16/23) - 0.16 (07/26/16) - 0.60 (05/26/20) - 4.9 (01/23/23) - 0.11 (11/06/16) - 0.60 (05/26/21) - 0.10 (02/04/17) - 0.60 ( Testosterone - 14 (08/21/18) PSMA PET scan (11/30/2021) at [facility] - enhancing lesion in the prostate gland extending into the right seminal vesicle - radiotracer positive left inguinal lymph node and sclerotic osseus lesion in the left supra-acetabular region - suspicious for locally advanced prostate gland neoplasm with left inguinal lymph node and left supra-acetabular region metastases CT Urogram (09/17/22) - no kidney stones, renal masses, hydronephrosis or filling defects - Right - benign (1.2 cm) cyst (lower pole) PSMA PET scan (01/10/23) - new Left hydronephrosis with dilation to UVJ - enhancement of prostate - multiple new skeletal metastases - no active lymph nodes seen Severino Rodrigues MD [address] [facility],[address], [place], [address], [facility] - [facility] 01/27/2023 19:22:51 09/02/2023 text/html HPI Notes: 77 yo male dx with prostate cancer (T1c - Rosa Maria 3+4 = 7 - bilateral) on 11/28/10 - s/p XRT (completed on 03/28/11) - Hormonal therapy - s/p Cryotherapy of the prostate (05/12/19) by Dr. Yu for local recurrence - started on Enzalutamide in December 2021 (Dr. Ontiveros) - PSAM PET scan (01/10/23) - new Left hydronephrosis - new skeletal mets - prostate enhancement - s/p Cystoscopy with Left ureteral stent placement and TRUS bx of prostate (02/01/23) Pathology - Left - Huntley 5+5=10 - 6/6 cores (40%) - + perineural invasion - Right - Huntley 4+5=9 - 6/6 cores (20%) - + perineural invasion - s/p Docetaxel - s/p Radiation of bone metastasis He tried Myrbetriq 50 mg daily (helped with urgency - but too expensive). He is on Flomax 0.8 mg daily. - s/p Cystoscopy with dilation (Optilume) of prostatic urethral stricture - (11/09/22) 10/15/22 - He presents for follow-up on prostate cancer and evaluation of gross hematuria. He reports pink/red urine (at beginning of stream) for 2 weeks (started about 6 weeks ago) He denies abdominal or flank pain - no dysuria. CT Urogram (09/17/22) was unremarkable. He voids every 1-2 hours during the day and 4-6x/night. + Urgency. 11/28/22 - He presents for follow-up on urethral stricture. He states his urination is better now (after 2nd course of abx). He voids every 1-2 hours during the day and 4-6x/night. + Urgency - no dysuria. He states his stream is good. 01/23/23 - He presents for follow-up on urination and Prostate cancer. Recent PSMA PET scan revealed new Left hydronephrosis, new skeletal mets, and enhancement in the prostate. He continues to have frequent urination - voids every 1 hour during the day and 7-8x/night. 09/02/23 - He presents for follow-up on urination, prostate cancer, and Left hydronephrosis / stent. He denies stent irritation. - UA - moderate blood - trace LE - PVR = 0 mL PSA - 4.85 (10/30/10) - 0.10 (05/08/17) - 0.71 (11/28/20) - 0.46 (09/21/13) - 0.11 (11/05/17) - 0.67 (02/27/21) - 0.07 (11/30/13) - 0.23 (05/19/18) - 0.76 (06/12/21) - 0.03 (06/07/14) - 0.22 (08/21/18) - 1.03 (09/28/21) - 0.03 (10/05/14) - 0.37 (11/06/18) - 0.70 (01/02/22) - <0.03 (04/25/15) - 0.54 (02/09/19) - 0.40 (02/07/22) - 0.11(07/26/15) - 0.58 (05/11/19) - 0.25 (05/02/22) - 0.33 (10/21/15) - 0.36 (08/17/19) - 0.29 (07/06/22) - 0.57 (01/24/16) - 0.41 (11/17/19) - 0.7 (10/10/22) - 1.16 (04/27/16) - 0.58 (02/19/20) - 3.6 (01/16/23) - 0.16 (07/26/16) - 0.60 (05/26/20) - 4.9 (01/23/23) - 0.11 (11/06/16) - 0.60 (05/26/21) - 0.10 (02/04/17) - 0.60 ( Testosterone - 14 (08/21/18) PSMA PET scan (11/30/2021) at [facility] - enhancing lesion in the prostate gland extending into the right seminal vesicle - radiotracer positive left inguinal lymph node and sclerotic osseus lesion in the left supra-acetabular region - suspicious for locally advanced prostate gland neoplasm with left inguinal lymph node and left supra-acetabular region metastases CT Urogram (09/17/22) - no kidney stones, renal masses, hydronephrosis or filling defects - Right - benign (1.2 cm) cyst (lower pole) PSMA PET scan (01/10/23) - new Left hydronephrosis with dilation to UVJ - enhancement of prostate - multiple new skeletal metastases - no active lymph nodes seen Severino Rodrigues MD [address] [place] [address],[address], [place], [address], [facility] - [facility] 09/02/2023 19:32:47 11/04/2023 text/html HPI Notes: 78 yo male dx with prostate cancer (T1c - Rosa Maria 3+4 = 7 - bilateral) on 11/28/10 - s/p XRT (completed on 03/28/11) - Hormonal therapy - s/p Cryotherapy of the prostate (05/12/19) by Dr. Yu for local recurrence - started on Enzalutamide in December 2021 (Dr. Ontiveros) - PSAM PET scan (01/10/23) - new Left hydronephrosis - new skeletal mets - prostate enhancement - s/p Cystoscopy with Left ureteral stent placement and TRUS bx of prostate (02/01/23) Pathology - Left - Huntley 5+5=10 - 6/6 cores (40%) - + perineural invasion - Right - Huntley 4+5=9 - 6/6 cores (20%) - + perineural invasion - s/p Docetaxel - s/p Radiation of bone metastasis - Darolutamide 600 mg BID (Sep 2023) He tried Myrbetriq 50 mg daily (helped with urgency - but too expensive). He is on Flomax 0.8 mg daily. - s/p Cystoscopy with dilation (Optilume) of prostatic urethral stricture - (11/09/22) - s/p Cystoscopy with Left ureteral stent exchange - (10/03/23) 10/15/22 - He presents for follow-up on prostate cancer and evaluation of gross hematuria. He reports pink/red urine (at beginning of stream) for 2 weeks (started about 6 weeks ago) He denies abdominal or flank pain - no dysuria. CT Urogram (09/17/22) was unremarkable. He voids every 1-2 hours during the day and 4-6x/night. + Urgency. 11/28/22 - He presents for follow-up on urethral stricture. He states his urination is better now (after 2nd course of abx). He voids every 1-2 hours during the day and 4-6x/night. + Urgency - no dysuria. He states his stream is good. 01/23/23 - He presents for follow-up on urination and Prostate cancer. Recent PSMA PET scan revealed new Left hydronephrosis, new skeletal mets, and enhancement in the prostate. He continues to have frequent urination - voids every 1 hour during the day and 7-8x/night. 09/02/23 - He presents for follow-up on urination, prostate cancer, and Left hydronephrosis / stent. He denies stent irritation. 11/04/23 - He presents for follow-up on urination. He voids every 1 hour during the day and 3-5x/night. He reports minimal stent irritation. - UA - moderate blood - trace LE - PVR = 279 mL PSA - 4.85 (10/30/10) - 0.10 (05/08/17) - 0.71 (11/28/20) - 0.46 (09/21/13) - 0.11 (11/05/17) - 0.67 (02/27/21) - 0.07 (11/30/13) - 0.23 (05/19/18) - 0.76 (06/12/21) - 0.03 (06/07/14) - 0.22 (08/21/18) - 1.03 (09/28/21) - 0.03 (10/05/14) - 0.37 (11/06/18) - 0.70 (01/02/22) - <0.03 (04/25/15) - 0.54 (02/09/19) - 0.40 (02/07/22) - 0.11(07/26/15) - 0.58 (05/11/19) - 0.25 (05/02/22) - 0.33 (10/21/15) - 0.36 (08/17/19) - 0.29 (07/06/22) - 0.57 (01/24/16) - 0.41 (11/17/19) - 0.7 (10/10/22) - 1.16 (04/27/16) - 0.58 (02/19/20) - 3.6 (01/16/23) - 0.16 (07/26/16) - 0.60 (05/26/20) - 4.9 (01/23/23) - 0.11 (11/06/16) - 0.60 (05/26/21) - 0.10 (02/04/17) - 0.60 ( Testosterone - 14 (08/21/18) PSMA PET scan (11/30/2021) at [facility] - enhancing lesion in the prostate gland extending into the right seminal vesicle - radiotracer positive left inguinal lymph node and sclerotic osseus lesion in the left supra-acetabular region - suspicious for locally advanced prostate gland neoplasm with left inguinal lymph node and left supra-acetabular region metastases CT Urogram (09/17/22) - no kidney stones, renal masses, hydronephrosis or filling defects - Right - benign (1.2 cm) cyst (lower pole) PSMA PET scan (01/10/23) - new Left hydronephrosis with dilation to UVJ - enhancement of prostate - multiple new skeletal metastases - no active lymph nodes seen Severino Rodrigues MD [address] [facility],[address], [place], [address], [facility] - [facility] 11/04/2023 22:17:07
--- NOTE | 2023-12-26 14:30 | CRLHL7_ITS ---
For Patients: As a result of the 21st Century Cures Act, medical imaging exams and procedure reports are released immediately into your electronic medical record. You may view this report before your referring provider. If you have questions, please contact your health care provider. Indication: MALIGNANT NEOPLASM OF PROSTATE, BACK PAIN Technique: Noncontrast sagittal and axial T1, T2, and sagittal STIR sequences are provided. Postcontrast sagittal and axial T1 weighted images were obtained after administration of 20 ml Dotarem IV contrast. Comparison: No prior studies available for comparison at this institution. Findings: Normal lumbar spine alignment. No compression fractures. Small chronic Schmorl`s node in the L3 superior endplate and in the T11-12 endplates. There are multiple cystic enhancing lesions in the spleen compatible with metastases. Mild dilation of the left renal pelvis with mild left hydronephrosis. A linear structure in the pelvis is nonspecific. Please correlate for left ureteric stent. There are multiple marrow replacing T1 hypointense T2/stir hyperintense enhancing lesions throughout the lumbar vertebral bodies, sacrum, and iliac bones compatible with osseous metastases. There is epidural tumor extension at L3-4 involving the dorsal epidural space. T11-12: Mild disc bulge. Moderate disc space narrowing. Disc desiccation. Minimal indentation thecal sac. No significant spinal canal stenosis or neural foramen narrowing. T12-L1: Left paracentral protrusion. Indents the thecal sac without significant spinal canal stenosis or neural foramen narrowing. L1-2: No significant spinal canal stenosis or neural foramen narrowing. L2-3: Disc desiccation and mild disc bulge. Mild indentation of the thecal sac without significant spinal canal stenosis or neural foramen narrowing. L3-4: Disc desiccation. Mild disc bulge with small broad-based disc protrusion in the left neural foramen. Epidural enhancement compatible with epidural tumor extension. Bilateral facet arthrosis and facet joint effusions. Mild spinal canal narrowing. No neural foramen narrowing. L4-5: Disc desiccation. Mild disc bulge. Small left paracentral annular fissure. Bilateral facet arthrosis and facet joint effusions. Mild spinal canal narrowing. No neural foraminal narrowing. L5-S1: Moderate interspace narrowing. Moderate facet arthrosis. No significant spinal canal stenosis or neural foramen narrowing. Impression : 1. 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 Epidural tumor extension at L3-4 in the dorsal epidural space. 2. Multilevel lumbar spondylosis detailed above. Mild spinal canal narrowing at L3-4 and L4-5 levels. No significant neural foramen narrowing. 3. No fractures. Normal alignment. 4. Multiple cystic enhancing splenic lesions most compatible with metastases. 5. Dilation of the left renal pelvis and proximal ureter with linear structure in the lumen that may represent a stent. Dictated by Marino Bartlett MD @ 12/28/2023 8:55:43 PM (Electronically Signed)
== END 2023-12-26 13:20 | disposition home or self-care (01) ==
PROVIDERS: PCP Family Medicine; Visit Provider Internal Medicine Hematology & Oncology
DX: C61 Malignant neoplasm of prostate (principal); C79.51 Secondary malignant neoplasm of bone; D73.4 Cyst of spleen; M54.9 Dorsalgia, unspecified
CPT/HCPCS: 72158; A9575

== ENCOUNTER 2024-02-10 17:29 | Observation (INO) | payer MEDICARE, BC, SELFPAY ==
--- OUTSIDE RECORDS SUMMARY | 2024-02-10 17:34 | XMS_ITS | Encounter Summary ---
Author Organization [facility] Address [address] [place] [address] Care Team Providers Care Risk Tech Name Role Phone Elsewhere, Pcp Primary Care Provider Unavailabl e Encounter Details Date Type Department Care Team (Late st Contact Info) Description 02/05/2024 Clinical Communication Department of Radiology in [place], [place] [address] [place] [address] Peterson Rodas Social History Tobacco Use Types Packs/Day Years [...] any clubs o r organizations such as adventist groups, unions, fraternal or athletic groups, or [...] and heating? Not hard at all 01/24/2023 [facility] of Occupat ional Health - Occupational [...] your living situation today? I have a [facility] place to live 01/24/2023 Education Answer Date Recorded What is the highest level of school you have completed or the highest degree you have received? Master's degree (e.g., MA, MS, Gail, MEd, PHARMACISTS, JAMIE) 12/21/2021 Sex and Gender Information Value Date Recorded Sex Assigned at Male 12/21/2021 7:22 AM CDT Gender Identity Male 12/21/2021 7:22 AM CDT Sexual Orientation Straight 12/21/2021 7: 22 AM CDT documented as of this encounter Plan of Treatment Upcoming Encounters Date Type Department Care Team (Late st Contact Info) Description 03/04/2024 1:15 PM CDT Appointment Department of Radiology in [address] [address] Marilin Kaiser M.D. [address] [place] [address] 03/04/2024 1:30 PM CDT Appointment Department of Radiology in [address] [address] Marilin Kaiser M.D. [address] [place] [address] 03/05/2024 9:15 AM CDT Appointment Department of Radiology in [address] [address] Marilin Kaiser M.D. [address] [place] [address] 04/15/2024 1:15 PM CDT Appointment Department of Radiology in [address] [address] Marilin Kaiser M.D. [address] [place] [address] 04/15/2024 1:30 PM CDT Appointment Department of Radiology in [address] [address] Marilin Kaiser M.D. [address] [place] [address] 04/16/2024 9:15 AM CDT Appointment Department of Radiology in [address] [address] Marilin Kaiser M.D. [address] [place] [address] 05/27/2024 12:45 PM CDT Appointment Department of Radiology in [address] [address] Marilin Kaiser M.D. [address] [place] [address] 05/27/2024 1:00 PM CDT Appointment Department of Radiology in [address] [address] Marilin Kaiser M.D. [address] [place] [address] 05/28/2024 9:15 AM CDT Appointment Department of Radiology in [address] [address] Marilin Kaiser M.D. [address] [place] [address] 07/08/2024 1:15 PM MEDIUM CYCLE SALESPERSON Appointment Department of Radiology in [address] [address] Marilin Kaiser M.D. [address] [place] [address] 07/08/2024 1:30 PM MEDIUM CYCLE SALESPERSON Appointment Department of Radiology in [address] [address] Marilin Kaiser M.D. [address] [place] [address] 07/09/2024 9:45 AM MEDIUM CYCLE SALESPERSON Appointment Department of Radiology in [address] [address] Marilin Kaiser M.D. [address] [place] [address] 08/19/2024 12:45 PM MEDIUM CYCLE SALESPERSON Appointment Department of Radiology in [address] [address] Marilin Kaiser M.D. [address] [place] [address] 08/19/2024 1:00 PM MEDIUM CYCLE SALESPERSON Appointment Department of Radiology in [address] [address] Marilin Kaiser M.D. [address] [facility] [place] [address] 08/20/2024 9:45 AM MEDIUM CYCLE SALESPERSON Appointment Department of Radiology in [place], [place] [address] [place] [address] Marilin Kaiser M.D. 404 [facility] [place] [address] documented as of this encounter Visit Diagnoses Not on filedocumented in this encounter Care Teams Risk Tech Relationship Specialty Start Date End Date Elsewhere, Pcp PCP - General Family Medicine 08/31/20 documented as of this encounter
--- OUTSIDE RECORDS SUMMARY | 2024-02-10 17:34 | XMS_ITS | Encounter Summary ---
Author Organization [facility] Address [address] [place] [address] Care Team Providers Care Supervisor Dental Laboratory Name Role Phone Elsewhere, Pcp Primary Care Provider Unavailabl e Reason for Referral * Outpatient (Routine) - Authorized Specialty Diagnoses / Procedures Referred By Javon lopez Referred To Contact Diagnoses Primary Malignant Neoplasm Of Prostate (HCC) Procedures NM Post Therapy Iris-177 PSMA Monitoring Whole Body with SPECT CT Marilin Bland M.D. [address] [place] [address] [facility] Referral ID Status Reason Start Date Expiration Date V isits Requested Visits Authorized [id number] Authorized 12/27/2023 12/26/2024 8 8 Reason for Visit * Outpatient (Routine) - Authorized Specialty Diagnoses / Procedures Referred By Javon lopez Referred To Contact Diagnoses Primary Malignant Neoplasm Of Prostate (HCC) Procedures NM Post Therapy Iris-177 PSMA Monitoring Whole Body with SPECT CT Marilin Bland M.D. [address] [place] [address] [facility] Referral ID Status Reason Start Date Expiration Date V isits Requested Visits Authorized [id number] Authorized 12/27/2023 12/26/2024 8 8 Encounter Details Date Type Department Care Team (Latest Contact Info) Description 01/23/2024 9:03 AM CDT - 01/23/2024 11:59 PM CDT Hospital Encounter Department of Radiology in [place], [place] [address] [place] [address] Marilin Kaiser M.D. [address] [place] [address] Primary Malignant Neoplasm Of Prostate [...] often do you attend chur ch or sikhism services? Never 12/21/2021 Do you belong to any clubs o r organizations such as caodaism groups, unions, fraternal or athletic groups, or [...] and heating? Not hard at all 01/24/2023 [facility] of Occupat ional Health - Occupational [...] your living situation today? I have a [facility] place to live 01/24/2023 Education Answer Date Recorded What is the highest level of school you have completed or the highest degree you have received? Master's degree (e.g., MA, MS, Gail, MEd, INFORMATION TECHNOLOGY TEACHER, JAMIE) 12/21/2021 Sex and Gender Information Value Date Recorded Sex Assigned at Male 12/21/2021 7:22 AM CDT Gender Identity Male 12/21/2021 7:22 AM CDT Sexual Orientation Straight 12/21/2021 7: 22 AM CDT documented as of this encounter Medications at Time of Discharge Medication Sig Dispensed Refills Start Date End Date calcium-vitamin D3-vitamin K 500-100-40 mg-unit-mcg tablet,chewable Chew 1 tablet daily. 05/25/2019 lisinopriL (PRINIVIL,ZESTRIL) 20 mg tablet Take 20 mg by mouth daily. 11/06/2021 rosuvastatin (CRESTOR) 5 mg tablet Take 5 mg by mouth at bedtime. 11/06/2021 tamsulosin (FLOMAX) 0.4 mg 24 hr capsule TAKE TWO CAPSULES BY MOUTH ONCE DAILY AFTER A MEAL 11/06/[address] tablet Take by mouth. 05/12/2008 ondansetron ODT (Zofran-ODT) 8 mg disintegrating tabletIndications:Primary Malignant Neoplasm Of Prostate (HCC) Dissolve 1 tablet (8 mg total) in the mouth every 8 (eight) hours as needed for nausea or vomiting. 20 tablet 01/22/2024 documented as of this encounter Plan of Treatment Upcoming Encounters Date Type Department Care Team (Late st Contact Info) Description 03/04/2024 1:15 PM CDT Appointment Department of Radiology in [place] [address] [place] [address] Marilin Kaiser M.D. [address] [place] [phone] 03/04/2024 1:30 PM CDT Appointment Department of Radiology in [place] [address] [place] [address] Marilin Kaiser M.D. [address] [place] [address] 03/05/2024 9:15 AM CDT Appointment Department of Radiology in [address] [address] Marilin Kaiser M.D. [address] [place] [address] 04/15/2024 1:15 PM CDT Appointment Department of Radiology in [address] [address] Marilin Kaiser M.D. [address] [place] [address] 04/15/2024 1:30 PM CDT Appointment Department of Radiology in [address] [address] Marilin Kaiser M.D. [address] [place] [address] 04/16/2024 9:15 AM CDT Appointment Department of Radiology in [address] [address] Marilin Kaiser M.D. [address] [place] [address] 05/27/2024 12:45 PM CDT Appointment Department of Radiology in [address] [address] Marilin Kaiser M.D. [address] [place] [address] 05/27/2024 1:00 PM CDT Appointment Department of Radiology in [place] [address] [place] [address] Marilin Kaiser M.D. [address] [place] [address] 05/28/2024 9:15 AM CDT Appointment Department of Radiology in [address] [address] Marilin Kaiser M.D. [address] [place] [address] 07/08/2024 1:15 PM PLASTIC PANEL INSTALLER Appointment Department of Radiology in [address] [address] Marilin Kaiser M.D. [address] [place] [address] 07/08/2024 1:30 PM PLASTIC PANEL INSTALLER Appointment Department of Radiology in [address] [address] Marilin Kaiser M.D. [address] [place] [address] 07/09/2024 9:45 AM PLASTIC PANEL INSTALLER Appointment Department of Radiology in [address] [address] Marilin Kaiser M.D. [address] [place] [address] 08/19/2024 12:45 PM PLASTIC PANEL INSTALLER Appointment Department of Radiology in [address] [address] Marilin Kaiser M.D. [address] [place] [address] 08/19/2024 1:00 PM PLASTIC PANEL INSTALLER Appointment Department of Radiology in [place], [place] [address] [place] [address] Marilin Kaiser M.D. [address] [place] [address] 08/20/2024 9:45 AM PLASTIC PANEL INSTALLER Appointment Department of Radiology in [place] [address] [place] [address] Marilin Kaiser M.D. [address] [place] [address] documented as of this encounter Procedures Procedure Name Priority Date/Time Associated Diagnosis Comments NM POST TX IRIS-177 PSMA MONITORING WB W SPECT CT MULTI RAD - Routine (most inpatients and all outpatients) 01/23/2024 9:53 AM CDT Primary Malignant Neoplasm Of Prostate (HCC) documented in this encounter Results * NM Post Therapy Iris-177 PSMA Monitoring Whole Body with SPECT CT Multiple (01/23/2024 9:53 AM CDT) Anatomical Region Laterality Modality Body, Nuclear Medicine RST L OS, Nuclear Medicine ARZ LOS, Nuclear Medicine FLA LOS, Nuclear Medicine N/A Nuclear Med icine Impressions 01/23/2024 11:30 AM CDT 1. Successful localization of Iris-177 PSMA to the known metastatic disease. 2. No additional foci of Iris-177 PSMA localization to suggest new metastasis. 3. No suspicious non-PSMA avid metastatic disease. PSMA expression score: 3 Narrative 01/23/2024 11:30 AM CDT EXAM: ??NM POST TX IRIS-177 PSMA MONITORING WB W SPECT CT MULTI RADIOPHARMACEUTICAL/MEDS: Iris-177 PSMA-617 (PLUVICTO) therapy was administered yesterday and noted in a therapy note on that date. This scan is a quantitative 3D image to localize the previously administered therapy including the tumor and organ biodistribution of that therapy. TECHNIQUE: ??Iris-177 PSMA therapy monitoring imaging with quantitative SPECT performed from the vertex to the thighs with low dose, non-contrast free-breathing CT for attenuation correction and anatomic localization, and imaging beginning at approximately 24 hours after therapy injection. COMPARISON: ??12/24/2023 PSMA PET/CT dated 09/10/2022. INDICATION: Metastatic prostate cancer. Monitoring biodistribution after cycle 1 of therapy. ?? FINDINGS: Expected Iris-177 PSMA localization to the known metastatic disease in the bones. New foci of PSMA localization since prior PSMA PET/CT or Post-therapy scan: Absent Overall, the PSMA avid tumor volume is visually similar to prior exam. Suspicious non-PSMA avid metastatic disease: None. Biodistribution: Otherwise expected physiologic distribution of PSMA uptake. Additional findings on the noncontrast low-dose CT: Right chest Port-A-Cath tip at the low SVC. Stable 3 mm pulmonary nodule within the left upper lobe (image 192). Calcified pulmonary granulomas. Vascular calcifications including the coronary arteries. Gynecomastia. Left ureteral stent. Vasectomy clips. Scattered colonic diverticula. Anterior abdominal wall injection sites. Scattered sclerotic osseous lesions. Degenerative skeletal changes. Procedure Note Ismael Kline M.D., Ph.D. - 01/23/2024 EXAM: NM POST TX IRIS-177 PSMA MONITORING WB W SPECT CT MULTI RADIOPHARMACEUTICAL/MEDS: Iris-177 PSMA-617 (PLUVICTO) therapy was administered yesterday and noted rajeev therapy note on that date. This scan is a quantitative 3D image tolocalize the previously administered therapy including the tumor and organbiodistribution of that therapy. TECHNIQUE: Iris-177 PSMA therapy monitoring imaging with quantitative SPECTperformed from the vertex to the thighs with low dose, snz-unvvektipeto-dmxjqjpmc CT for attenuation correction and anatomic localization,and imaging beginning at approximately 24 hours after therapy injection. COMPARISON: 12/24/2023 PSMA PET/CT dated 09/10/2022. INDICATION: Metastatic prostate cancer. Monitoring biodistribution aftercycle 1 of therapy. FINDINGS: Expected Irsi-177 PSMA localization to the known metastatic disease in thebones. New foci of PSMA localization since prior PSMA PET/CT or Post-therapyscan: Absent Overall, the PSMA avid tumor volume is visually similar to prior exam. Suspicious non-PSMA avid metastatic disease: None. Biodistribution: Otherwise expected physiologic distribution of PSMAuptake. Additional findings on the noncontrast low-dose CT: Right hbpkqCzxr-B-Ahaf tip at the low SVC. Stable 3 mm pulmonary nodule within theleft upper lobe (image 192). Calcified pulmonary granulomas. Vascularcalcifications including the coronary arteries. Gynecomastia. Left ureteral stent. Vasectomy clips. Scattered colonicdiverticula. Anterior abdominal wall injection sites. Scattered scleroticosseous lesions. Degenerative skeletal changes. IMPRESSION: 1. 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 2. No additional foci of Iris-177 PSMA localization to suggest newmetastasis. 3. No suspicious non-PSMA avid metastatic disease. PSMA expression score: 3 Marilin CROFT NM PROCEDURES documented in this encounter Visit Diagnoses Diagnosis Primary Malignant Neoplasm Of Prostate (HCC) documented in this encounter Care Teams Supervisor Dental Laboratory Relationship Specialty Start Date End Date Elsewhere, Pcp PCP - General Family Medicine 08/31/20 documented as of this encounter
--- OUTSIDE RECORDS SUMMARY | 2024-02-10 17:34 | XMS_ITS | Encounter Summary ---
Author Organization [facility] Address [address] [place] [address] Care Team Providers Care Overnight Houseperson Name Role Phone Elsewhere, Pcp Primary Care Provider Unavailabl e Encounter Details Date Type Department Care Team (Late st Contact Info) Description 01/27/2024 Clinical Communication Department of Radiology, [facility], in [place], [place] [address] [place] [phone] Elizabeth Barragan R.N. [address] [place] [address] Social History Tobacco Use Types Packs/Day Years [...] often do you attend chur ch or denominational services? Never 12/21/2021 Do you belong to any clubs o r organizations such as hoahaoism groups, unions, fraternal or athletic groups, or [...] and heating? Not hard at all 01/24/2023 [facility] of Occupat ional Health - Occupational Stress [...] your living situation today? I have a [facility] place to live 01/24/2023 Education Answer Date Recorded What is the highest level of school you have completed or the highest degree you have received? Master's degree (e.g., MA, MS, Gail, MEd, STATOR WINDER, JAMIE) 12/21/2021 Sex and Gender Information Value Date Recorded Sex Assigned at Male 12/21/2021 7:22 AM CDT Gender Identity Male 12/21/2021 7:22 AM CDT Sexual Orientation Straight 12/21/2021 7: 22 AM CDT documented as of this encounter Miscellaneous Notes * Telephone Encounter - Elizabeth Barragan RNathaly. - 01/27/2024 11:00 AM CDT Follow up phone call after treatment of radioactive therapy lutetium 177. Date of treatment. 01/22/24 Nausea? no Vomiting? no Pain? The usual pain but no worse than normal -takes a percocet and oxy that helps. Fatigue? Yes, some increase in fatigue but not much, has decreased appetite. Are you maintaining hydration? yes Do you have any questions regarding safety with the radioactive body fluids? no How are you feeling in general? Feeling ok in general, can still enjoy simple things in life. Any concerns regarding your treatment? no documented in this encounter Plan of Treatment Upcoming Encounters Date Type Department Care Team (Late st Contact Info) Description 03/04/2024 1:15 PM CDT Appointment Department of Radiology in [address] [address] Marilin Kaiser M.D. [address] [place] [address] 03/04/2024 1:30 PM CDT Appointment Department of Radiology in [address] [address] Marilin Kaiser M.D. [address] [place] [address] 03/05/2024 9:15 AM CDT Appointment Department of Radiology in [address] [address] Marilin Kaiser M.D. [address] [place] [address] 04/15/2024 1:15 PM CDT Appointment Department of Radiology in [address] [address] Marilin Kaiser M.D. [address] [place] [address] 04/15/2024 1:30 PM CDT Appointment Department of Radiology in [address] [address] Marilin Kaiser M.D. [address] [place] [address] 04/16/2024 9:15 AM CDT Appointment Department of Radiology in [address] [address] Marilin Kaiser M.D. [address] [place] [address] 05/27/2024 12:45 PM CDT Appointment Department of Radiology in [place] [address] [place] [address] Marilin Kaiser M.D. [address] [place] [address] 05/27/2024 1:00 PM CDT Appointment Department of Radiology in [address] [address] Marilin Kaiser M.D. [address] [place] [address] 05/28/2024 9:15 AM CDT Appointment Department of Radiology in [address] [address] Marilin Kaiser M.D. [address] [place] [address] 07/08/2024 1:15 PM [employer] Appointment Department of Radiology in [address] [address] Marilin Kaiser M.D. [address] [place] [address] 07/08/2024 1:30 PM [employer] Appointment Department of Radiology in [address] [address] Marilin Kaiser M.D. [address] [place] [address] 07/09/2024 9:45 AM [employer] Appointment Department of Radiology in [place], [place] [address] [place] [address] Marilin Kaiser M.D. [address] [place] [address] 08/19/2024 12:45 PM [employer] Appointment Department of Radiology in [place], [place] [address] [place] [address] Marilin Kaiser M.D. [address] [place] [address] 08/19/2024 1:00 PM [employer] Appointment Department of Radiology in [place] [address] [place] [address] Marilin Kaiser M.D. [address] [place] [address] 08/20/2024 9:45 AM [employer] Appointment Department of Radiology in [place] [address] [place] [address] Marilin Kaiser M.D. [address] [place] [address] documented as of this encounter Visit Diagnoses Not on filedocumented in this encounter Care Teams Overnight Houseperson Relationship Specialty Start Date End Date Elsewhere, Pcp PCP - General Family Medicine 08/31/20 documented as of this encounter
--- OUTSIDE RECORDS SUMMARY | 2024-02-10 17:34 | XMS_ITS ---
Author Organization [facility] Address [address] [place] [address] Care Team Providers Care Inventory Associate Name Role Phone Unavailable Unavailable Unavailable Surgery Details Not on file Complications Check Surgery Details section. Procedure Estimated Blood Loss Check Surgery Details section. Procedure Findings Check Surgery Details section. Procedure Specimens Taken Check Surgery Details section.
--- OUTSIDE RECORDS SUMMARY | 2024-02-10 17:34 | XMS_ITS ---
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 Past Plans No past plan information found. Radiation Treatments * Plan Last Treated On Elapsed Days Fractions Treated Prescribed Fraction Dose Prescribed Total Dose [id number] 08/01/2023 8 1 of 1 2,000 cGy 2,000 cGy [id number] 07/31/2023 7 3 of 3 1,000 cGy 3,000 cG y [id number] 07/30/2023 6 3 of 3 1,000 cGy 3,000 cG y Reference Point Last Treated On Elapsed Days Session Dose Total Dose [id number] 08/01/2023 8 2,000 cGy 2,000 cGy [id number] HumR 07/31/2023 7 1,000 cGy 3,000 cGy [id number] HumL 07/30/2023 6 1,000 cGy 3,000 cGy
--- OUTSIDE RECORDS SUMMARY | 2024-02-10 17:34 | XMS_ITS | Clinical Summary ---
Author Organization [facility] Address [address] [place] [address] Care Team Providers Care Sleeve Wheel Maker Name Role Phone Elsewhere, Pcp Primary Care Provider Unavailabl e Source Comments Patient records contain information from all sites at [facility]. For routine questions regarding patient records, call [phone] during business hours, M-F 8:00 AM - 5:00 PM Central Time. Record requests for emergency care only can be directed to [phone] at any time.[facility] Allergies Active Allergy Reactions Criticality Noted Date [...] ONCE DAILY AFTER A MEAL 11/06/2021 Active ondansetron ODT (Zofran-ODT) 8 mg disintegrating tabletIndications:Prim maria de jesus Malignant Neoplasm Of Prostate (HCC) Dissolve 1 tablet (8 mg total) in the mouth every 8 (eight) hours as needed for nausea or vomiting. 20 tablet 01/22/2024 Active Active Problems Problem Noted Date Diagnosed [...] Encounters Date Type Department Care Team Description 02/05/2024 Clinical Communication Department of Radiology in [place], [place] [address] [place] [address] Peterson Rodas 01/27/2024 Clinical Communication Department of Radiology, [facility] in [place], [place] [address] [place] [address] Elizabeth Barragan R.N. 01/23/2024 9:03 AM CDT - 01/23/2024 11:59 PM CDT Hospital Encounter Department of Radiology in [address] [address] Marilin Kaiser M.D. Primary Malignant Neoplasm Of Prostate (HCC) Discharge Disposition: Home or Self Care 01/22/2024 11:46 AM CDT - 01/22/2024 11:59 PM CDT Hospital Encounter Department of Radiology in [address] [address] Marilin Kaiser M.D. Primary Malignant Neoplasm Of Prostate (HCC) Discharge Disposition: Home or Self Care 01/22/2024 11:46 AM CDT - 01/22/2024 2:02 PM CDT Hospital Encounter Department of Radiology in [address] [address] Marilin Kaiser M.D. Dick, Michael D, P.A.-C. Primary Malignant Neoplasm Of Prostate (HCC) 01/02/2024 11:55 AM CDT Ancillary Procedure Department of Radiology in [place], [place] [address] [place] [address] Evelina Ontiveros APRN, C.N.P., D.N.P. Primary Malignant Neoplasm Of Prostate (HCC); Secondary Malignant Neoplasm Bone (HCC) 01/02/2024 Clinical Communication Department of Radiology in [place], [place] [address] [place] [address] Peterson Rodas 01/02/2024 Orders Only Department of Radiology in [place], [place] [address] [place] [address] Evelina Ontiveros APRN C.N.PLanden, D.N.P. Primary Malignant Neoplasm Of Prostate (HCC) (Primary Dx); Secondary Malignant Neoplasm Bone (HCC) 12/27/2023 Documentation Department of Radiology in [place], [place] [address] [place] [address] Evelina Ontiveros APRN C.N.P., D.N.P. 12/27/2023 Orders Only Department of Oncology in [place], [place] [address] [place] [address] Renetta Tan, R.NLanden Primary Malignant Neoplasm Of Prostate (HCC) (Primary Dx) 12/26/2023 Orders Only Department of Oncology in [place], [place] [address] [address] Renetta Tan, RLandenNLanden Secondary Malignant Neoplasm Bone (HCC) (Primary Dx); Primary Malignant Neoplasm Of Prostate (HCC) 12/26/2023 Orders Only Department of Oncology in [place], [place] [address] [place] [address] Marilin Kaiser M.D. 12/26/2023 Orders Only Department of Oncology in [place], [place] [address] [place] [address] Marilin Kaiser M.D. 12/24/2023 10:33 AM CDT - 12/24/2023 11:59 PM CDT Hospital Encounter Department of Radiology in [place], [place] [address] [address] Marilin Kaiser M.D. Primary Malignant Neoplasm Of Prostate (HCC) Discharge Disposition: Home or Self Care 12/18/2023 Orders Only Department of Oncology in [place], [place] [address] [place] [address] Marilin Kaiser M.D. Primary Malignant Neoplasm Of [...] often do you attend chur ch or yazdanism services? Never 12/21/2021 Do you belong to any clubs o r organizations such as confucianist groups, unions, fraternal or athletic groups, or [...] and heating? Not hard at all 01/24/2023 [facility] - Occupational [...] your living situation today? I have a [place] place to live 01/24/2023 Education Answer Date Recorded What is the highest level of school you have completed or the highest degree you have received? Master's degree (e.g., MA, MS, Gail, MEd, SOUP PERSON, JAMIE) 12/21/2021 Sex and Gender Information Value Date Recorded Sex Assigned at Male 12/21/2021 7:22 AM CDT Gender Identity Male 12/21/2021 7:22 AM CDT Sexual Orientation Straight 12/21/2021 7: 22 AM CDT Last Filed Vital Signs Vital Sign Reading Time Taken Comments Blood Pressure 123/65 01/22/2024 1:59 PM CDT Pulse 72 01/22/2024 1:59 PM CDT Temperature 36.1 ??C (97 ??F) 08/01/2023 11:36 AM UMBRELLA CUTTER Respiratory Rate - - Oxygen Saturation 99% 01/22/2024 1:59 PM CDT Inhaled Oxygen Concentration - - Weight 92.7 kg (204 lb 5.9 oz) 08/01/2023 11:36 AM UMBRELLA CUTTER Height - - Body Mass Index - - Plan of Treatment Upcoming Encounters Date Type Department Care Team (Late st Contact Info) Description 03/04/2024 1:15 PM CDT Appointment Department of Radiology in [place], [place] [address] [place] [address] Marilin Kaiser M.D. [address] [place] [address] 03/04/2024 1:30 PM CDT Appointment Department of Radiology in [place], [place] [address] [place] [address] Marilin Kaiser M.D. [address] [place] [address] 03/05/2024 9:15 AM CDT Appointment Department of Radiology in [address] [address] Marilin Kaiser M.D. [address] [place] [address] 04/15/2024 1:15 PM CDT Appointment Department of Radiology in [address] [address] Marilin Kaiser M.D. [address] [place] [address] 04/15/2024 1:30 PM CDT Appointment Department of Radiology in [address] [address] Marilin Kaiser M.D. [address] [place] [address] 04/16/2024 9:15 AM CDT Appointment Department of Radiology in [address] [address] Marilin Kaiser M.D. [address] [place] [address] 05/27/2024 12:45 PM CDT Appointment Department of Radiology in [address] [address] Marilin Kaiser M.D. [address] [place] [address] 05/27/2024 1:00 PM CDT Appointment Department of Radiology in [address] [address] Marilin Kaiser M.D. [address] [place] [address] 05/28/2024 9:15 AM CDT Appointment Department of Radiology in [address] [address] Marilin Kaiser M.D. [address] [place] [address] 07/08/2024 1:15 PM UMBRELLA CUTTER Appointment Department of Radiology in [address] [address] Marilin Kaiser M.D. [address] [place] [address] 07/08/2024 1:30 PM UMBRELLA CUTTER Appointment Department of Radiology in [address] [address] Marilin Kaiser M.D. [address] [place] [address] 07/09/2024 9:45 AM UMBRELLA CUTTER Appointment Department of Radiology in [address] [address] Marilin Kaiser M.D. [address] [place] [address] 08/19/2024 12:45 PM UMBRELLA CUTTER Appointment Department of Radiology in [address] [address] Marilin Kaiser M.D. [address] [place] [address] 08/19/2024 1:00 PM UMBRELLA CUTTER Appointment Department of Radiology in [place], [place] [address] [place] [address] Marilin Kaiser M.D. [address] [place] [address] 08/20/2024 9:45 AM UMBRELLA CUTTER Appointment Department of Radiology in [place], [place] [address] [place] [address] Marilin Kaiser M.D. [address] [place] [address] Health Maintenance Due Date Last Done Comments Hepatitis C Screening 1945 COVID-19 Vaccine ( season) 2023 05/22/2023, 05/21/2022, 10/30/2021, Additional history exists Depression Screening (Annual PHQ-2) 08/05/2023 Influenza Vaccine (#1) 2024 , 04/13/2022, 05/24/2021, Additional history exists Creatinine Level (Kidney Function Test) 09/13/2024 09/13/2023, [...] Surveillance Discontinued Zoster Vaccines Completed 03/08/2021, 01/04/2021 Fall Risk Screen (Annual) Completed 01/22/[address] Colonography Discontinued Cologuard Discontinued FIT Discontinued HPV Vaccines Aged Out No longer eligi ble based on patient's age to complete this topic Procedures Procedure Name Priority Date/Time Associated Diagnosis Comments NM POST TX IRIS-177 PSMA MONITORING WB W SPECT CT MULTI RAD - Routine (most inpatients and all outpatients) 01/23/2024 9:53 AM CDT Primary Malignant Neoplasm Of Prostate (HCC) NM THERAPY IRIS-177 PSMA RAD - Routine (most inpatients and all outpatients) 01/22/2024 2:12 PM CDT Primary Malignant Neoplasm Of Prostate (HCC) INTERPRETATION OF OUTSIDE MR SPINE RAD - Routine (most inpatients and all outpatients) 01/02/2024 11:56 AM CDT Primary Malignant Neoplasm Of Prostate (HCC) Secondary Malignant Neoplasm Bone (HCC) OUTSIDE MR NEURO Routine 12/26/2023 2:[address] SKULL TO THIGH PSMA RAD - Routine (most inpatients and all outpatients) 12/24/2023 12:54 PM CDT Primary Malignant Neoplasm Of Prostate (HCC) EXTI BASIC METABOLIC PANEL, S/P Routine 09/13/2023 2:[address] ABDOMEN PELVIS WITH IV CONTRAST RAD - Routine (most inpatients and all outpatients) 11/27/2016 8:26 AM CDT from Last 3 Months or Most Recently Relevant to Health Maintenance Results * NM Post Therapy Iris-177 PSMA [...] vertex to the thighs with low dose, pfk-jyrvtyktdkln-zshhoyspr CT for attenuation correction and anatomic localization,and imaging beginning at approximately 24 hours after therapy injection. COMPARISON: 12/24/2023 PSMA PET/CT dated 09/10/2022. INDICATION: Metastatic prostate cancer. Monitoring biodistribution aftercycle 1 of therapy. FINDINGS: Expected Iris-177 PSMA localization to the known metastatic disease in thebones. New foci of PSMA localization since prior PSMA PET/CT or Post-therapyscan: Absent Overall, the PSMA avid tumor volume is visually similar to prior exam. Suspicious non-PSMA avid metastatic disease: None. Biodistribution: Otherwise expected physiologic distribution of PSMAuptake. Additional findings on the noncontrast low-dose CT: Right cyccbYubd-X-Eyrj tip at the low SVC. Stable 3 [...] metastatic disease. PSMA expression score: 3 Marilin Kaiser M.D. [facility] NM PROCEDURES * NM Therapy Iris-177 PSMA (01/22/2024 2:12 PM CDT) Anatomical Region Laterality Modality Body, Nuclear Medicine RST L OS, Nuclear Medicine ARZ LOS, Nuclear Medicine FLA LOS, Nuclear Medicine N/A Nuclear Med icine Impressions 01/22/2024 2:18 PM CDT Successful administration of Iris-177 PSMA cycle 1. Narrative 01/22/2024 2:18 PM CDT EXAM: ??NM THERAPY IRIS-177 PSMA RADIOPHARMACEUTICAL/MEDS: Route: intravenous lutetium Iris 177 vipivotide tetraxetan (Iris-177 Pluvicto),196 millicurie Waste dosage from Iris-177 PSMA was 4 mCi. PROCEDURE: ??Laboratory values and interval clinical history reviewed. The therapy procedure was discussed with the patient, including risk, benefits, alternatives, potential side effects, and radiation safety by the nuclear medicine therapy team. All of the patient's questions were answered and informed consent was obtained. Written instructions, including a contact phone number, were given to the patient. The Iris-177 PSMA release instructions were reviewed and the patient has agreed to follow them. Procedure Note Ismael Kline M.D., Ph.D. - 01/22/2024 EXAM: NM THERAPY IRIS-177 PSMA RADIOPHARMACEUTICAL/MEDS: Route: intravenous lutetium Iris 177 vipivotide tetraxetan (Iris-177 Pluvicto),196 millicurie Waste dosage from Iris-177 PSMA was 4 mCi. PROCEDURE: Laboratory values and interval clinical history reviewed. Thetherapy procedure was discussed with the patient, including risk,benefits, alternatives, potential side effects, and radiation safety bythe nuclear medicine therapy team. All of the patient's questions were answered and informed consent was obtained.Written instructions, including a contact phone number, were given to thepatient. The Iris-177 PSMA release instructions were reviewed and thepatient has agreed to follow them. IMPRESSION: Successful administration of Iris-177 PSMA cycle 1. Marilin Kaiser M.D. [facility] NM PROCEDURES * Interpretation of Outside MR Spine (01/02/2024 11:56 AM CDT) Anatomical Region Laterality Modality Neuroradiology RST LOS, Neur oradiology ARZ LOS, Neuroradiology FLA LOS, Spine, Other N/A Magnetic Resonanc e Impressions 01/02/2024 2:33 PM CDT Marked progression in the extent of osseous metastases within the lumbar spine as described. Narrative 01/02/2024 2:33 PM CDT EXAM: ??INTERPRETATION OF OUTSIDE MR SPINE dated 26 Dec 2023. COMPARISON: Treatment planning MRI examination of the thoracic spine dated 22 July 2023. FINDINGS: Review of outside MRI examination of the lumbar spine demonstrates extensive replacement of normal marrow signal throughout the visualized vertebral elements from T11 through the sacrum consistent with marked progression in the extent of metastatic disease involving both the anterior and posterior elements.. No extra-axial tumor extension or canal compromise is noted. No pathologic fractures are evident. Postradiation marrow signal changes demonstrated at the T11-L2 levels. No foraminal compromise noted. Paraspinal soft tissues are unremarkable. Procedure Note Daniele Crews M.D. - 01/02/2024 EXAM: INTERPRETATION OF OUTSIDE MR SPINE dated 26 Dec 2023. COMPARISON: Treatment planning MRI examination of the thoracic spine dated July2023. FINDINGS: Review of outside MRI examination of the lumbar spine demonstratesextensive replacement of normal marrow signal throughout the visualizedvertebral elements from T11 through the sacrum consistent with markedprogression in the extent of metastatic disease involving both the anterior and posterior elements.. Noextra-axial tumor extension or canal compromise is noted. No pathologicfractures are evident. Postradiation marrow signal changes demonstrated atthe T11-L2 levels. No foraminal compromise noted. Paraspinal soft tissues are unremarkable. IMPRESSION: Marked progression in the extent of osseous metastases within the lumbarspine as described. Evelina Ontiveros APRN, Sherice.N.P., D.N.P. I [facility] MRI PROCEDURES * MR lumbar spine wo/w con-Outside MR Neuro (12/26/2023 2:35 PM CDT) Narrative IIMS - 01/02/2024 11:10 AM CDT This order has been created and auto-finalized to support the import of outside images. If available, original interpretation can be found on the Media Tab in Chart Review, in Document Viewer, or as an image in QREADS. If a re-interpretation or overread is required please follow defined workflow. ?? Provider Not In System IMG MRI PROCEDURE S IIMS NA * PET CT Skull to Thigh PSMA [...] Recently Relevant to Health Maintenance Care Teams Sleeve Wheel Maker Relationship Specialty Start Date End Date Elsewhere, Pcp PCP - General Family Medicine 08/31/20
--- OUTSIDE RECORDS SUMMARY | 2024-02-10 17:34 | XMS_ITS | Referral Summary ---
Author Organization [facility] Address [address] [place] [address] Care Team Providers Care Copier Repair Technician Name Role Phone Elsewhere, Pcp Primary Care Provider Unavailabl e Source Comments Patient records contain information from all sites at [facility]. For routine questions regarding patient records, call [phone] during business hours, M-F 8:00 AM - 5:00 PM Central Time. Record requests for emergency care only can be directed to [phone] at any time.[facility] Encounters Date Type Department Care Team Description 02/05/2024 Clinical Communication Department of Radiology in [place], [place] [address] [place] [address] Peterson Rodas 01/27/2024 Clinical Communication Department of Radiology, [facility] in [place], [place] [address] [place] [address] Elizabeth Barragan R.N. 01/23/2024 9:03 AM CDT - 01/23/2024 11:59 PM CDT Hospital Encounter Department of Radiology in [address] [address] Marilin Kaiser M.D. Primary Malignant Neoplasm Of Prostate (HCC) Discharge Disposition: Home or Self Care 01/22/2024 11:46 AM CDT - 01/22/2024 11:59 PM CDT Hospital Encounter Department of Radiology in [place], [place] [address] [place] [address] Marilin Kaiser M.D. Primary Malignant Neoplasm Of Prostate (HCC) Discharge Disposition: Home or Self Care 01/22/2024 11:46 AM CDT - 01/22/2024 2:02 PM CDT Hospital Encounter Department of Radiology in [place], [place] [address] [place] [address] Marilin Kaiser M.D. Dick, Michael D, P.A.-C. Primary Malignant Neoplasm Of Prostate (HCC) 01/02/2024 Clinical Communication Department of Radiology in [place], [place] [address] [place] [address] Peterson Rodas 01/02/2024 11:55 AM CDT Ancillary Procedure Department of Radiology in [place], [place] [address] [place] [address] Evelina Ontiveros APRN, C.N.P., D.N.P. Primary Malignant Neoplasm Of Prostate (HCC); Secondary Malignant Neoplasm Bone (HCC) 01/02/2024 Orders Only Department of Radiology in [place], [place] [address] [place] [address] Evelina Ontiveros APRN, C.N.P., D.N.P. Primary Malignant Neoplasm Of Prostate (HCC) (Primary Dx); Secondary Malignant Neoplasm Bone (HCC) 12/27/2023 Documentation Department of Radiology in [place], [place] [address] [place] [address] Evelina Ontiveros APRN, C.N.P., D.N.P. 12/27/2023 Orders Only Department of Oncology in [place], [place] [address] [place] [address] Renetta Tan RTony Primary Malignant Neoplasm Of Prostate (HCC) (Primary Dx) 12/26/2023 Orders Only Department of Oncology in [place], [place] [address] [place] [address] Renetta Tan, R.Cande. Secondary Malignant Neoplasm Bone (HCC) (Primary Dx); Primary Malignant Neoplasm Of Prostate (HCC) 12/26/2023 Orders Only Department of Oncology in [place], [place] [address] [place] [address] Marilin Kaiser M.D. 12/26/2023 Orders Only Department of Oncology in [place], [place] [address] [place] [address] Marilin Kaiser M.D. 12/24/2023 10:33 AM CDT - 12/24/2023 11:59 PM CDT Hospital Encounter Department of Radiology in [place], [place] [address] [place] [address] Marilin Kaiser M.D. Primary Malignant Neoplasm Of Prostate (HCC) Discharge Disposition: Home or Self Care 12/18/2023 Orders Only Department of Oncology in [place], [place] [address] [place] [address] Marilin Kaiser M.D. Primary Malignant Neoplasm Of [...] than 10, Rosa Maria 7) - Unsigned Immunizations Name Administration Dates [...] often do you attend chur ch or spiritism services? Never 12/21/2021 Do you belong to any clubs o r organizations such as latter-day groups, unions, fraternal or athletic groups, or [...] and heating? Not hard at all 01/24/2023 [facility] [place] [facility] Occupat ional Health - Occupational Stress [...] your living situation today? I have a [facility] place to live 01/24/2023 Education Answer Date Recorded What is the highest level of school you have completed or the highest degree you have received? Master's degree (e.g., LETTY, MS, Gail, MEd, PROJECT PROGRAM MANAGER, JAMIE) 12/21/2021 Sex and Gender Information [...] 36.1 ??C (97 ??F) 08/01/2023 11:36 AM BLOOD BANK ATTENDANT Respiratory Rate - - Oxygen Saturation 99% 01/22/2024 1:59 PM CDT Inhaled Oxygen Concentration - - Weight 92.7 kg (204 lb 5.9 oz) 08/01/2023 11:36 AM BLOOD BANK ATTENDANT Height - - Body Mass Index - - Plan of Treatment Upcoming Encounters Date Type Department Care Team (Late st Contact Info) Description 03/04/2024 1:15 PM CDT Appointment Department of Radiology in [address] [address] Marilin Kaiser M.D. [address] [place] [address] 03/04/2024 1:30 PM CDT Appointment Department of Radiology in [address] [address] Marilin Kaiser M.D. [address] [place] [address] 03/05/2024 9:15 AM CDT Appointment Department of Radiology in [address] [address] Marilin Kaiser M.D. [address] [place] [address] 04/15/2024 1:15 PM CDT Appointment Department of Radiology in [place] [address] [place] [address] Marilin Kaiser M.D. [address] [place] [address] 04/15/2024 1:30 PM CDT Appointment Department of Radiology in [address] [address] Marilin Kaiser M.D. [address] [place] [address] 04/16/2024 9:15 AM CDT Appointment Department of Radiology in [address] [address] Marilin Kaiser M.D. [address] [place] [address] 05/27/2024 12:45 PM CDT Appointment Department of Radiology in [address] [address] Marilin Kaiser M.D. [address] [place] [address] 05/27/2024 1:00 PM CDT Appointment Department of Radiology in [address] [address] Marilin Kaiser M.D. [address] [place] [address] 05/28/2024 9:15 AM CDT Appointment Department of Radiology in [address] [address] Marilin Kaiser M.D. [address] [place] [address] 07/08/2024 1:15 PM BLOOD BANK ATTENDANT Appointment Department of Radiology in [address] [address] Marilin Kaiser M.D. [address] [place] [address] 07/08/2024 1:30 PM BLOOD BANK ATTENDANT Appointment Department of Radiology in [address] [address] Marilin Kaiser M.D. [address] [place] [address] 07/09/2024 9:45 AM BLOOD BANK ATTENDANT Appointment Department of Radiology in [address] [address] Marilin Kaiser M.D. [address] [place] [address] 08/19/2024 12:45 PM BLOOD BANK ATTENDANT Appointment Department of Radiology in [address] [address] Marilin Kaiser M.D. [address] [place] [address] 08/19/2024 1:00 PM BLOOD BANK ATTENDANT Appointment Department of Radiology in [address] [address] Marilin Kaiser M.D. [address] [place] [facility] [address] 08/20/2024 9:45 AM BLOOD BANK ATTENDANT Appointment Department of Radiology in [place], [place] [address] [place] [address] Marilin Kaiser M.D. [address] [place] [facility] [address] Procedures Procedure Name Priority Date/Time Associated Diagnosis [...] METABOLIC PANEL, S/P Routine 09/13/2023 2:[address] ATT[address]ANT CT ABDOMEN PELVIS WITH IV CONTRAST RAD [...] vertex to the thighs with low dose, rsc-yiyokmtfpbse-xirobvanc CT for attenuation correction and anatomic localization,and [...] findings on the noncontrast low-dose CT: Right jksytDsuz-F-Lzwg tip at the low SVC. Stable 3 [...] expression score: 3 Marilin CROFT NM PROCEDURES * NM Therapy Iris-177 PSMA [...] Iris-177 PSMA cycle 1. Marilin Kaiser M.D. [facility] PROCEDURES * Interpretation of Outside MR Spine [...] the lumbarspine as described. Evelina Ontiveros APRN, C.N.P., D.N.P. I MG MRI PROCEDURES * MR [...] Recently Relevant to Health Maintenance Care Teams Copier Repair Technician Relationship Specialty Start Date End Date Elsewhere, Pcp PCP - General Family Medicine 08/31/20
--- OUTSIDE RECORDS SUMMARY | 2024-02-10 17:35 | XMS_ITS | Encounter Summary ---
Author Organization [facility] Address [address] [place] [id number] Care Team Providers Care Natural Resources Manager Name Role Phone Elsewhere, Pcp Primary Care Provider Unavailabl e Encounter Details Date Type Department Care Team (Late st Contact Info) Description 12/27/2023 Documentation Department of Radiology in [place], [place] [address] [place] [address] Evelina Ontiveros, AMBER, C.N.P., D.N.P. [address] [place] [address] Social History Tobacco Use Types Packs/Day Years [...] often do you attend chur ch or confucianist services? Never 12/21/2021 Do you belong to any clubs o r organizations such as voodoo groups, unions, fraternal or athletic groups, or [...] and heating? Not hard at all 01/24/2023 [facility] - Occupational [...] your living situation today? I have a [facility] place to live 01/24/2023 Education Answer Date Recorded What is the highest level of school you have completed or the highest degree you have received? Master's degree (e.g., MA, MS, Gail, MEd, [employer]) 12/21/2021 Sex and Gender Information Value Date Recorded Sex Assigned at Male 12/21/2021 7:22 AM CDT Gender Identity Male 12/21/2021 7:22 AM CDT Sexual Orientation Straight 12/21/2021 7: 22 AM CDT documented as of this encounter Progress Notes * Evelina Ontiveros APRN, C.N.P., D.N.P. - 12/27/2023 9:33 AM CDT SUBJECTIVE REFERRING PROVIDER Dr. Kaiser NUCLEAR MEDICINE PROVIDER Evelina Ontiveros APRN, Sherice.N.P., D.N.P. Tatiana Fisher., B.Ch, B.A.O. REASON FOR REFERRAL Request to evaluate as a possible candidate for Pluvicto Therapy. Mr. Thibodeaux was not personally interviewed or examined. The history and examination findings are based on the clinical documentation provided and/or discussed with the provider who personally interviewed and examined the patient. HISTORY OF PRESENT ILLNESS Mr. Thibodeaux is a 78 y.o. male undergoing evaluation for progressive metastatic, castration-resistant prostate cancer, who has received ARPI and Taxane-based therapies. Metastatic disease located in the bone and lymph nodes. He has previously undergone radiation therapy to the prostate followed by subsequent cryotherapy tothe prostate in 2019. He has been managed on ADT and up until 12/18/2023 was on new Swati. He did also complete 6 cycles of Taxotere chemotherapy with his last cycle being 06/03/2023. At present time he is only on ADT and also denosumab. He does have a history of LEFT hydronephrosis in this managed with a LEFT ureteral stent most recently exchanged on 10/03/2023. He also has a history of a urethral stricture that was previously dilated. Most recent follow-up with urology locally on 11/04/2023 showed a postvoid residual of 279 mL. Per the outside notes he is having significant lower back pain and will be undergoing a lumbar MRI at a local facility thus we will need this imaging prior to starting therapy. Oncology History Primary Malignant Neoplasm Of Prostate (HCC) 09/01/2010 Other 09/01/2010: PSA 6.47 ng/mL 10/30/2010: PSA 4.85 ng/mL 11/28/2010 Biopsy/Pathology Prostate biopsy was performed. Pathology demonstrated adenocarcinoma, Rosa Maria 3+4=7. Adenocarcinomawas an every biopsy specimen, generally with greater than 50% total surface area involved. Perineural invasion was also present. T1c. 01/29/2011 - 03/28/2011 Radiation Therapy Intensity modulated radiation therapy to the prostate to a dose of 7560 cGy in 42 fractions under the care of Dr. Rachael Sanford at [facility] in [place], [place]. 01/2011 - Biological/Targeted/Hormone Therapy Lupron 30 mg injection. 09/04/2011 Other 09/04/2011: PSA 0.07 ng/mL 12/04/2011: PSA 0.30 ng/mL 02/26/2012: PSA 0.27 ng/mL 09/02/2012: PSA 0.34 ng/mL 01/05/2013: PSA <0.03 ng/mL 03/30/2013: PSA 0.28 ng/mL 06/25/2013: PSA 0.34 ng/mL 09/21/2013: PSA 0.46 ng/mL 11/30/2013: PSA 0.07 ng/mL 06/07/2014: PSA 0.03 ng/mL 10/05/2014: PSA 0.03 ng/mL 04/25/2015: PSA <0.03 ng/mL 07/26/2015: PSA 0.11 ng/mL 10/21/2015: PSA 0.33 ng/mL 01/24/2016: PSA 0.57 ng/mL 04/27/2016: PSA 1.16 ng/mL 07/26/2016: PSA 0.16 ng/mL 11/06/2016: PSA 0.11 ng/mL 02/04/2017: PSA 0.10 ng/mL 05/08/2017: PSA 0.10 ng/mL 11/05/2017: PSA 0.11 ng/mL 05/19/2018: PSA 0.23 ng/mL 08/21/2018: PSA 0.22 ng/mL 11/06/2018: PSA 0.37 ng/mL 02/09/2019: PSA 0.54 ng/mL 05/11/2019: PSA 0.58 ng/mL 09/09/2012 - Biological/Targeted/Hormone Therapy Intermittent hormone therapy 09/09/2012: Lupron 30 mg 09/29/2013: Lupron 30 mg 12/08/2013: Lupron 45 mg 06/15/2014: Lupron 30 mg 10/25/2014: Lupron 45 mg 04/30/2016 Biopsy/Pathology Continuous hormone therapy 04/30/2016: Lupron 45 mg 11/12/2016: Lupron 45 mg 05/13/2017: Lupron 45 mg 11/18/2017: Lupron 45 mg 05/26/2018: Eligard 45 mg 12/01/2018: Eligard 45 mg 06/03/2019: Eligard 45 mg 12/03/2019: Eligard 45 mg 06/06/2020: Eligard 45 mg 12/05/2020: Eligard 45 mg 06/19/2021: Eligard 45 mg 01/17/2022: Eligard 45 mg 07/23/2022: Eligard 45 mg 01/23/2023: Eligard 45 mg 12/05/2018 Critical Imaging Axumin PET scan demonstrated no evidence of osseous metastatic disease. A prominent right iliac lymph node measuring 9 mm with SUV max 2.93, which did not meet criteria for metastatic lesion based onbackground uptake. 05/12/2019 Surgery and Procedures Cryotherapy with Dr. Yu at [facility]. The patient underwent placement of 13 cryo ice rads, 4 in row 1, 3 in row 2, 2 in row 4, 2 in row 5, and 1 in row 6. Three thermal sensor is were placed in the right prostate, mid prostate, and left prostate. He underwent repeat cystoscopy. There was no evidence for perforation to the prostatic urethra. 08/17/2019 Other 08/17/2019: PSA 0.36 ng/mL 11/17/2019: PSA 0.41 ng/mL 02/19/2020: PSA 0.58 ng/mL 05/26/2020: PSA 0.60 ng/mL 08/29/2020: PSA 0.60 ng/mL 11/28/2020: PSA 0.71 ng/mL 02/27/2021: PSA 0.67 ng/mL 06/12/2021: PSA 0.76 ng/mL 09/28/2021: PSA 1.03 ng/mL 11/07/2021: PSA 1.26 ng/mL 11/30/2021 Critical Imaging PSMA PET scan at [facility] demonstrated radiotracer positive lesion in the prostate gland extending into the right seminal vesicle with radiotracer positive left inguinal lymph node and sclerotic osseous lesion in the left supra-acetabular region suspicious for locally advanced prostate gland neoplasm with left inguinal lymph node and left supra-acetabular region metastases. 12/05/2021 Other Medical Oncology appointment with Dr. Marilin Kaiser who recommended continuing with Eligard and every [address] Rodrigues. Recommended initiation of enzalutamide. Referral to Radiation Oncology for consideration of proton therapy now or in the future. 12/13/2021 Other DEXA bone density scan demonstrated normal bone mass. 12/16/2021 - 01/2023 Biological/Targeted/Hormone Therapy Patient started on Xtandi. Continue on Eligard. Xtandi discontinued in January 2023. 12/25/[address] Cesar Boo, Radiation Oncology. He did not recommend additional radiation therapy to the prostate with either brachytherapy or proton therapy due to previous radiation treatment and salvage cryotherapy. Recommended a PSMA PET-CT in 6 months and could potentially treat the left i nguinal lymph node or left supra-acetabular region if warranted with SBRT. 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 CT Urogram (09/27) was unremarkable. Cystoscopy (11/09/22) demonstrated prostatic urethral stricture without mass. 01/02/2023 Other 01/02/2022: PSA 0.70 ng/mL 02/07/2022: PSA 0.40 ng/mL 05/03/2022: PSA 0.34 ng/mL 07/06/2022: PSA 0.29 ng/mL 10/10/2022: PSA 0.7 ng/mL 11/19/2022: PSA 1.5 ng/mL 12/24/2022: PSA 2.8 ng/mL 01/16/2023: PSA 3.6 ng/mL 01/10/2023 Critical Imaging PSMA PET-CT FINDINGS: There is now dilatation of the left renal calyces, left renal pelvis, and left ureter to the level of the left ureterovesical junction. Physiologic left renal parenchymal activity appears slightly lower than that of the right kidney. The left side of the prostate gland has a current SUV maximum of 11.1 versus 11.7 on 11/30/2021. The right side of the prostate gland has current SUV maximum of 11.3 versus 16.5 on 11/30/2021; this again appears to extend beyond the prostate gland. The lesion in the left iliac bone has current SUV max of 7.8 versus 5.1 on 11/30/2021. Multiple new skeletal metastases are present. For example, left femur (SUV max 7.4), right acetabulum (SUV max 3.3), posterior left iliac bone (SUV max 1.4), base of the L3 spinous process (SUV max 8.3), T12 (SUV max 3.4), left 3rd rib (SUV max 23.4), left 6th rib (SUV max 5.4, 8.5), medial right clavicle (SUV max 27.4), right humerus (SUV max 4.3), left humerus (SUV max 4.5). Focus of dermal activity on the right posterior scalp may be inflammatory. No concerning lymph nodes are identified today. A left inguinal node no longer has uptake versus anSUV maximum of 5.3 on 11/30/2021. 01/15/2023 Other Follow up with Dr. Kaiser. Recommended discontinuing Xtandi and initiating Taxotere chemotherapy due to progression of disease. Continue Eligard per Dr. Rodrigues. Referral to Radiation Oncology for consideration of SBRT for multiple bone metastases. 02/01/2023 Surgery and Procedures PROCEDURE: Cystoscopy with Left ureteral stent placement, TRUS bx of prostate SURGEON: Severino Rodrigues MD FINDINGS: marked edema at Left trigone - moderate / severe Left hydronephrosis - abnormal prostate (17.3 gm) A) PROSTATE, RIGHT, NEEDLE BIOPSY: 1. Prostatic adenocarcinoma, Rosa Maria score 4 + 5 = 9 (ISUP Grade Group 5) 2. Total surface area involved: 20% 3. Number of needle biopsy cores involved: 6 of 6 4. Perineural invasion: Present B) PROSTATE, LEFT, NEEDLE BIOPSY: 1. Prostatic adenocarcinoma, Arlington score 5 + 5 = 10 (ISUP Grade Group 5) 2. Total surface area involved: 40% 3. Number of needle biopsy cores involved: 6 of 6 4. Perineural invasion: Present 5. Extraprostatic extension is present 02/11/2023 Other Xgeva initiated. 02/12/2023 - 06/03/2023 Chemotherapy Taxotere with Neulasta x 6 cycles. 04/15/2023 Genetic Testing and Tumor Genotyping TEST PERFORMED: Prostate Cancer Panel / Common Hereditary Cancers Panel (47 genes) via [employer] See test report fordetails regarding genes analyzed and testing methodologies. RESULT: NEGATIVE FOR CLINICALLY ACTIONABLE VARIANTS No clinically actionable (pathogenic or likely pathogenic) variants were detected in the genes analyzed. One variant of uncertain significance was detected: POLE [id number].[id number]>G ([id number]). No laboratory classifies this variant as clinically-actionable in the national database ClinVar. INTERPRETATION: An inherited predisposition to cancer is not identified with this testing. 06/11/2023 Critical Imaging PSMA PET-CT scan demonstrated decreased PSMA uptake in the prostate. Decreased skeletal osseous PSMA uptake throughout a majority of the lesions. The T12 vertebral body demonstrated increased sclerosis, SUV max 3.9. The right humerus demonstrated slightly increased sclerosis, SUV max 4.7. The left humerus demonstrated slightly increased sclerosis, SUV max 6.5. 06/17/[address] Kaiser. Plan to switch Eligard therapy to be managed through Medical Oncology.Continue with Xgeva. Continue calcium and vitamin-D. Darolutamide to be started towards the end of June/early July. Addendum: Referral to Radiation Oncology for radiation therapy to the humerus and pelvis. Hold darolutamide for now. 07/24/2023 - 08/01/2023 Radiation Therapy 08/01/23- SBRT to T 12 delivered in one fraction to a dose of 2000 cGy 07/24-07/30/23-SBRT to L humerus delivered in 3 fractions to a dose of 3000 cGy 07/24-07/31/23-SBRT to R humerus delivered in 3 fractions to a dose of 3000 cGy Other Radioligand Therapy Pluvicto: (planned) Cycle 1: Cycle 2: Cycle 3: Cycle 4: Cycle 5: Cycle 6: Past Medical History: Diagnosis Date Arthritis Knee Left Deficiency Vitamin D Hyperlipidemia Hypertension Essential Primary Polyp Colon Primary Malignant Neoplasm Of Prostate (HCC) Patient Active Problem List Diagnosis Primary Malignant Neoplasm Of Prostate (HCC) 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 Prostate cancer Father 72 at age 73 of liver failure. Social History Socioeconomic History Marital status: Single Spouse name: Not on file Number of children: Not on file Years of education: Not on file Highest education level: Master's degree (e.g., MA, MS, Gail, MEd, [employer]) Occupational History Not on file Tobacco Use Smoking status: Former Current packs/day: 0.00 Average packs/day: 0.5 packs/day for 0.5 years (0.3 ttl pk-yrs) Types: Cigarettes Start date: 12/04/1974 Quit date: 06/05/1975 Years since quittin.5 Smokeless tobacco: Never Substance and Sexual Activity Alcohol use: Yes Alcohol/week: 14.0 standard drinks of alcohol Types: 14 Standard drinks or equivalent per week Comment: 2 drinks per day Drug use: Not on file Sexual activity: Not on file Other Topics Concern Not on file Social History Narrative 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 Social Determinants of Health Food Insecurity: No Food Insecurity (01/24/2023) Hunger Vital Sign Worried About Running Out of Food in the Last Year: Never true Ran Out of Food in the Last Year: Never true Transportation Needs: No Transportation Needs (01/24/2023) PRAPARE - Transportation Lack of Transportation (Medical): No Lack of Transportation (Non-Medical): No Physical Activity: Sufficiently Active (01/24/2023) Exercise Vital Sign Days of Exercise per Week: 5 days Minutes of Exercise per Session: 40 min Intimate Partner Violence: Not At Risk (01/24/2023) Humiliation, Afraid, Rape, and Kick questionnaire Fear of Current or Ex-Partner: No Emotionally Abused: No Physically Abused: No Sexually Abused: No Housing Stability: Low Risk (01/24/2023) Housing Stability Housing: Living Situation: I have a steady place to live OBJECTIVE Arlington Score: 10 poorly differentiated/high grade (5+5, Grade Group 5) Performance Status: ECOG status: 2 - in bed <50% of the day LABORATORY RESULTS Lab Results Component Value Date HGB 14.0 12/24/2022 HGB 13.9 11/19/2022 HGB 14.1 10/10/2022 WBC 10.0 12/24/2022 WBC 9.4 11/19/2022 WBC 7.1 10/10/2022 PLT 223 12/24/2022 PLT 211 11/19/2022 PLT 184 10/10/2022 NEUTROPHILS 8.0 (H) 12/24/2022 NEUTROPHILS 7.8 (H) 11/19/2022 NEUTROPHILS 5.5 10/10/2022 NA 141 09/13/2023 NA 142 12/24/2022 NA 144 11/19/2022 CREATININE 0.77 09/13/2023 CREATININE 0.79 12/24/2022 CREATININE 0.75 11/19/2022 BILITOT 0.9 12/24/2022 BILITOT 0.6 11/19/2022 BILITOT 0.8 10/10/2022 ALT 10 12/24/2022 ALT 11 11/19/2022 ALT 17 10/10/2022 AST 23 12/24/2022 AST 16 11/19/2022 AST 27 10/10/2022 ALBUMIN 3.8 07/06/2022 ALBUMIN 3.8 06/11/2022 ALBUMIN 3.8 05/03/2022 IMAGING RESULTS Results for orders placed during the hospital encounter of 12/24/[address] Skull to Thigh PSMA Narrative EXAM: PET CT SKULL TO THIGH PSMA COMPARISON: PSV PET/CT 09/10/2023 INDICATION: Metastatic prostate cancer. Subsequent treatment strategy. The patient reports no recent vaccinations. FINDINGS: Diffuse radiotracer uptake throughout the prostate gland most pronounced within the right posteriorperipheral (maximum SUV 9.8) and left anterior transitional [...] piflufolastat F 18 injection (PYLARIFY F-18),9.2 millicurie Impression 1. Progression of tracer avid osseous metastatic disease (miPSMA expression score 3). 2. Multifocal intense tracer uptake throughout the prostate gland compatible with prostatic adenocarcinoma. ASSESSMENT / PLAN 1. Primary Malignant Neoplasm Of Prostate (HCC) 2. Secondary Malignant Neoplasm Bone (HCC) 3. 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 Incomplete Bladder Emptying 1. Mr. Thibodeaux is a candidate for Pluvicto. Current lab work and imaging are satisfactory to begin treatment. We will just need an updated testosterone level. In addition he will need to complete hisLumbar MRI locally PRIOR to starting therapy and having images reviewed here. Ready to schedule Nuclear Medicine consult. 2. Mr. Thibodeaux will need the following updated immediately prior to therapy: Laboratory: CMP, CBC with differential, PSA, and Testosterone Expedited 68Ga PSMA-11 PET/CT is unlikely to be needed prior to therapy 3. Chemotherapy will need to be held for 4 weeks prior to initiating treatment. 4. Targeted therapies, such as PARP inhibitors, need to be held 3 days prior to treatment. 5. Concurrent use of a GnRH-analog is recommended during PSMA-targeted radionuclide therapy. 6. Prior authorization status for Pluvicto is not applicable. 7. Further discussion of Pluvicto, final approval and informed consent will be obtained from Mr. Thibodeaux by Nuclear Medicine prior to therapy. documented in this encounter Plan of Treatment Upcoming Encounters Date Type Department Care Team (Late st Contact Info) Description 03/04/2024 1:15 PM CDT Appointment Department of Radiology in [address] [address] Marilin Kaiser M.D. [address] [place] [phone] 03/04/2024 1:30 PM CDT Appointment Department of Radiology in [address] [address] Marilin Kaiser M.D. [address] [place] [phone] 03/05/2024 9:15 AM CDT Appointment Department of Radiology in [address] [address] Marilin Kaiser M.D. [address] [place] [phone] 04/15/2024 1:15 PM CDT Appointment Department of Radiology in [address] [address] Marilin Kaiser M.D. [address] [place] [address] 04/15/2024 1:30 PM CDT Appointment Department of Radiology in [address] [address] Marilin Kaiser M.D. [address] [place] [address] 04/16/2024 9:15 AM CDT Appointment Department of Radiology in [address] [address] Marilin Kaiser M.D. [address] [place] [address] 05/27/2024 12:45 PM CDT Appointment Department of Radiology in [address] [address] Marilin Kaiser M.D. [address] [place] [address] 05/27/2024 1:00 PM CDT Appointment Department of Radiology in [address] [phone] Marilin Kaiser M.D. [address] [place] [address] 05/28/2024 9:15 AM CDT Appointment Department of Radiology in [address] [address] Marilin Kaiser M.D. [address] [place] [address] 07/08/2024 1:15 PM EDUCATIONAL THERAPIST Appointment Department of Radiology in [address] [address] Marilin Kaiser M.D. [address] [place] [address] 07/08/2024 1:30 PM EDUCATIONAL THERAPIST Appointment Department of Radiology in [address] [address] Marilin Kaiser M.D. [address] [place] [address] 07/09/2024 9:45 AM EDUCATIONAL THERAPIST Appointment Department of Radiology in [address] [address] Marilin Kaiser M.D. [address] [place] [address] 08/19/2024 12:45 PM EDUCATIONAL THERAPIST Appointment Department of Radiology in [address] [address] Marilin Kaisre M.D. [address] [place] [address] 08/19/2024 1:00 PM EDUCATIONAL THERAPIST Appointment Department of Radiology in [address] [address] Marilin Kaiser M.D. [address] [place] [address] 08/20/2024 9:45 AM EDUCATIONAL THERAPIST Appointment Department of Radiology in [place], [place] [address] [place] [address] Marilin Kaiser M.D. 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
--- OUTSIDE RECORDS SUMMARY | 2024-02-10 17:35 | XMS_ITS | Encounter Summary ---
Author Organization [facility] Address [address] [place] [id number] Care Team Providers Care Plate Take Out Worker Name Role Phone Elsewhere, Pcp Primary Care Provider Unavailabl e Encounter Details Date Type Department Care Team (Latest Contact Info) Description 01/02/2024 11:55 AM CDT Ancillary Procedure Department of Radiology in [place], [place] [address] [place] [phone] Evelina Ontiveros, AMBER, C.N.P., D.N.P. [address] [place] [address] Primary Malignant Neoplasm Of Prostate (HCC); Secondary Malignant Neoplasm Bone (HCC) Social History Tobacco Use Types Packs/Day [...] often do you attend chur ch or mormon services? Never 12/21/2021 Do you belong to any clubs o r organizations such as denominational groups, unions, fraternal or athletic groups, or [...] and heating? Not hard at all 01/24/2023 [facility] Occup[facility] ional [facility] - Occupational Stress [...] your living situation today? I have a [facility] place to live 01/24/2023 Education Answer Date Recorded What is the highest level of school you have completed or the highest degree you have received? Master's degree (e.g., MA, MS, Gail, MEd, TIEDOWN OPERATOR, JAMIE) 12/21/2021 Sex and Gender Information Value Date Recorded Sex Assigned at Male 12/21/2021 7:22 AM CDT Gender Identity Male 12/21/2021 7:22 AM CDT Sexual Orientation Straight 12/21/2021 7: 22 AM CDT documented as of this encounter Plan of Treatment Upcoming Encounters Date Type Department Care Team (Late st Contact Info) Description 03/04/2024 1:15 PM CDT Appointment Department of Radiology in [place], [place] [address] [place] [address] Marilin Kaiser M.D. [address] [place] [phone] 03/04/2024 1:30 PM CDT Appointment Department of Radiology in [place], [place] [address] [place] [address] Marilin Kaiser M.D. [address] [place] [address] 03/05/2024 9:15 AM CDT Appointment Department of Radiology in [place], [place] [address] [place] [address] Marilin Kaiser M.D. [address] [place] [address] 04/15/2024 1:15 PM CDT Appointment Department of Radiology in [place], [place] [address] [place] [address] Marilin Kaiser M.D. [address] [place] [address] 04/15/2024 1:30 PM CDT Appointment Department of Radiology in [place], [place] [address] [place] [address] Marilin Kaiser M.D. [address] [place] [address] 04/16/2024 9:15 AM CDT Appointment Department of Radiology in [address] [address] Marilin Kaiser M.D. [address] [place] [address] 05/27/2024 12:45 PM CDT Appointment Department of Radiology in [address] [address] Marilin Kaiser M.D. [address] [place] [address] 05/27/2024 1:00 PM CDT Appointment Department of Radiology in [address] [place] [address] Marilin Kaiser M.D. [address] [place] [address] 05/28/2024 9:15 AM CDT Appointment Department of Radiology in [address] [address] Marilin Kaiser M.D. [address] [place] [address] 07/08/2024 1:15 PM PATIENT CASE COORDINATOR Appointment Department of Radiology in [address] [address] Marilin Kaiser M.D. [address] [place] [address] 07/08/2024 1:30 PM PATIENT CASE COORDINATOR Appointment Department of Radiology in [address] [address] Marilin Kaiser M.D. [address] [place] [address] 07/09/2024 9:45 AM PATIENT CASE COORDINATOR Appointment Department of Radiology in [address] [address] Marilin Kaiser M.D. [address] [place] [address] 08/19/2024 12:45 PM PATIENT CASE COORDINATOR Appointment Department of Radiology in [address] [address] Marilin Kaiser M.D. [address] [place] [address] 08/19/2024 1:00 PM PATIENT CASE COORDINATOR Appointment Department of Radiology in [place], [place] [address] [place] [address] Marilin Kaiser M.D. [address] [place] [address] 08/20/2024 9:45 AM PATIENT CASE COORDINATOR Appointment Department of Radiology in [place] [address] [place] [address] Marilin Kaiser M.D. [address] [place] [address] documented as of this encounter Procedures Procedure Name Priority Date/Time Associated Diagnosis Comments INTERPRETATION OF OUTSIDE MR SPINE RAD - Routine (most inpatients and all outpatients) 01/02/2024 11:56 AM CDT Primary Malignant Neoplasm Of Prostate (HCC) Secondary Malignant Neoplasm Bone (HCC) documented in this encounter Results * Interpretation of Outside MR Spine (01/02/2024 [...] within the lumbarspine as described. Evelina Ontiveros APRN C.N.P., D.N.P. I MG MRI PROCEDURES documented in this encounter Visit Diagnoses Diagnosis Primary Malignant Neoplasm Of Prostate (HCC) Secondary Malignant Neoplasm Bone (HCC) documented in this encounter Care Teams Plate Take Out Worker Relationship Specialty Start Date End Date Elsewhere, Pcp PCP - General Family Medicine 08/31/20 documented as of this encounter
--- OUTSIDE RECORDS SUMMARY | 2024-02-10 17:35 | XMS_ITS | Encounter Summary ---
Author Organization [facility] Address [address] [place] [address] Care Team Providers Care Aoc Director Intelligence Officer Name Role Phone Elsewhere, Pcp Primary Care Provider Unavailabl e Reason for Referral * MRI/CAT/PET Scan (Routine) - Closed Specialty Diagnoses / Procedures Referred By Javon lopez Referred To Contact Diagnoses Primary Malignant Neoplasm Of Prostate (HCC) Procedures PET CT Skull to Thigh PSMA Marilin Kaiesr M.D. [address] [place] [address] [facility] Referral ID Status Reason Start Date Expiration Date Visits Re quested Visits Authorized [id number] Closed 12/18/2023 12/17/2024 1 1 Reason for Visit * MRI/CAT/PET Scan (Routine) - Closed Specialty Diagnoses / Procedures Referred By Javon lopez Referred To Contact Diagnoses Primary Malignant Neoplasm Of Prostate (HCC) Procedures PET CT Skull to Thigh PSMA Marilin Kaiser M.D. [address] [place] [address] [facility] Region Referral ID Status Reason Start Date Expiration Date Visits Re quested Visits Authorized [id number] Closed 12/18/2023 12/17/2024 1 1 Encounter Details Date Type Department Care Team (Latest Contact Info) Description 12/24/2023 10:33 AM CDT - 12/24/2023 11:59 PM CDT Hospital Encounter Department of Radiology in [place], [place] [address] [place] [address] Marilin Kaiser M.D. [address] [place] [address] Primary Malignant Neoplasm Of Prostate [...] often do you attend chur ch or christianity services? Never 12/21/2021 Do you belong to [...] and heating? Not hard at all 01/24/2023 [facility] of Occupat ional Health - Occupational Stress [...] your living situation today? I have a [facility] place to live 01/24/2023 Education Answer Date Recorded What is the highest level of school you have completed or the highest degree you have received? Master's degree (e.g., LETTY, MS, Gail, MEd, ASSISTANT BOILER OPERATOR, JAMIE) 12/21/2021 Sex and Gender Information [...] mg DR tablet Take by mouth. 05/12/2008 documented as of this encounter Plan of Treatment Upcoming Encounters Date Type Department Care Team (Late st Contact Info) Description 03/04/2024 1:15 PM CDT Appointment Department of Radiology in [place], [place] [address] [place] [address] Marilin Kaiser M.D. [address] [place] [address] 03/04/2024 1:30 PM CDT Appointment Department of Radiology in [place], [place] [address] [place] [address] Marilin Kaiser M.D. [address] [place] [address] 03/05/2024 9:15 AM CDT Appointment Department of Radiology in [address] [address] Marilin Kaiser M.D. [address] [place] [address] 04/15/2024 1:15 PM CDT Appointment Department of Radiology in [address] [address] Marilin Kaiser M.D. [address] [place] [address] 04/15/2024 1:30 PM CDT Appointment Department of Radiology in [address] [address] Marilin Kaiser M.D. [address] [place] [phone] 04/16/2024 9:15 AM CDT Appointment Department of Radiology in [address] [address] Marilin Kaiser M.D. [address] [place] [address] 05/27/2024 12:45 PM CDT Appointment Department of Radiology in [address] [address] Marilin Kaiser M.D. [address] [place] [address] 05/27/2024 1:00 PM CDT Appointment Department of Radiology in [address] [address] Marilin Kaiser M.D. [address] [place] [phone] 05/28/2024 9:15 AM CDT Appointment Department of Radiology in [place], [place] [address] [place] [address] Marilin Kaiser M.D. [address] [place] [address] 07/08/2024 1:15 PM ICE SCULPTOR Appointment Department of Radiology in [address] [address] Marilin Kaiser M.D. [address] [place] [address] 07/08/2024 1:30 PM ICE SCULPTOR Appointment Department of Radiology in [place] [address] [place] [address] Marilin Kaiser M.D. [address] [place] [address] 07/09/2024 9:45 AM ICE SCULPTOR Appointment Department of Radiology in [address] [address] Marilin Kaiser M.D. [address] [place] [address] 08/19/2024 12:45 PM ICE SCULPTOR Appointment Department of Radiology in [address] [address] Marilin Kaiser M.D. [address] [place] [address] 08/19/2024 1:00 PM ICE SCULPTOR Appointment Department of Radiology in [address] [place] [address] Marilin Kaiser M.D. [address] [place] [address] 08/20/2024 9:45 AM ICE SCULPTOR Appointment Department of Radiology in [place], [place] [address] [place] [address] Marilin Kaiser M.D. [address] [place] [address] documented as of this encounter Procedures Procedure [...] Antecubital documented in this encounter Care Teams Aoc Director Intelligence Officer Relationship Specialty Start Date End Date Elsewhere, Pcp PCP - General Family Medicine 08/31/20 documented as of this encounter
--- OUTSIDE RECORDS SUMMARY | 2024-02-10 17:35 | XMS_ITS | Encounter Summary ---
Author Organization [facility] Address [address] [place] [address] Care Team Providers Care Non Destructive Tester Name Role Phone Elsewhere, Pcp Primary Care Provider Unavailabl e Reason for Referral * Outpatient (Routine) - Authorized Specialty Diagnoses / Procedures Referred By Javon t Referred To Contact Diagnoses Primary Malignant Neoplasm Of Prostate (HCC) Procedures NM Post Therapy Iris-177 PSMA Monitoring Whole Body with SPECT CT Multiple Marilin Kaiser M.D. [address] [place] [address] [facility] Referral ID Status Reason Start Date Expiration Date V isits Requested Visits Authorized [id number] Authorized 12/27/2023 12/26/2024 8 8 * Outpatient (Routine) - Authorized Specialty Diagnoses / Procedures Referred By Contac t Referred To Contact Diagnoses Primary Malignant Neoplasm Of Prostate (HCC) Procedures NM Therapy Iris-177 PSMA Marilin Kaiser M.D. [address] [place] [address] [facility] Referral ID Status Reason Start Date Expiration Date V isits Requested Visits Authorized [id number] Authorized 12/27/2023 12/26/2024 8 8 * Outpatient (Routine) - Authorized Specialty Diagnoses / Procedures Referred By Contac t Referred To Contact Marilin Kaiser M.D. [address] [place] [address] [facility] Referral ID Status Reason Start Date Expiration Date V isits Requested Visits Authorized [id number] Authorized 12/27/2023 06/27/2025 1 1 * Outpatient (Routine) - Authorized Specialty Diagnoses / Procedures Referred By Contac t Referred To Contact Diagnoses Primary Malignant Neoplasm Of Prostate (HCC) Procedures NM Post Therapy Iris-177 PSMA Monitoring Whole Body with SPECT CT Multiple Marilin Kaiser M.D. [address] [place] [address] [facility] Referral ID Status Reason Start Date Expiration Date V isits Requested Visits Authorized [id number] Authorized 12/27/2023 12/26/2024 8 8 * Outpatient (Routine) - Authorized Specialty Diagnoses / Procedures Referred By Contac t Referred To Contact Diagnoses Primary Malignant Neoplasm Of Prostate (HCC) Procedures NM Therapy Iris-177 PSMA Marilin Kaiser M.D. [address] [place] [address] [facility] Referral ID Status Reason Start Date Expiration Date V isits Requested Visits Authorized [id number] Authorized 12/27/2023 12/26/2024 8 8 * Outpatient (Routine) - Authorized Specialty Diagnoses / Procedures Referred By Contdagoberto t Referred To Contact Marilin Kaiser M.D. [address] [place] [address] [facility] Referral ID Status Reason Start Date Expiration Date V isits Requested Visits Authorized [id number] Authorized 12/27/2023 06/27/2025 1 1 * Outpatient (Routine) - Authorized Specialty Diagnoses / Procedures Referred By Morenitaac t Referred To Contact Diagnoses Primary Malignant Neoplasm Of Prostate (HCC) Procedures NM Post Therapy Iris-177 PSMA Monitoring Whole Body with SPECT CT Multiple Marilin Kaiser M.D. [address] [place] [address] [facility] Referral ID Status Reason Start Date Expiration Date V isits Requested Visits Authorized [id number] Authorized 12/27/2023 12/26/2024 8 8 * Outpatient (Routine) - Authorized Specialty Diagnoses / Procedures Referred By Javon t Referred To Contact Diagnoses Primary Malignant Neoplasm Of Prostate (HCC) Procedures NM Therapy Iris-177 PSMA Marilin Kaiser M.D. [address] [place] [address] [facility] Referral ID Status Reason Start Date Expiration Date V isits Requested Visits Authorized [id number] Authorized 12/27/2023 12/26/2024 8 8 * Outpatient (Routine) - Authorized Specialty Diagnoses / Procedures Referred By Javon t Referred To Contact Marilin Kaiser M.D. [address] [place] [address] [facility] Referral ID Status Reason Start Date Expiration Date V isits Requested Visits Authorized [id number] Authorized 12/27/2023 06/27/2025 1 1 * Outpatient (Routine) - Authorized Specialty Diagnoses / Procedures Referred By Contac t Referred To Contact Diagnoses Primary Malignant Neoplasm Of Prostate (HCC) Procedures NM Post Therapy Iris-177 PSMA Monitoring Whole Body with SPECT CT Multiple Job, Marilin, M.D. [address] [place] [address] [facility] Referral ID Status Reason Start Date Expiration Date V isits Requested Visits Authorized [id number] Authorized 12/27/2023 12/26/2024 8 8 * Outpatient (Routine) - Authorized Specialty Diagnoses / Procedures Referred By Contac t Referred To Contact Diagnoses Primary Malignant Neoplasm Of Prostate (HCC) Procedures NM Therapy Iris-177 PSMA Marilin Kaiser M.D. [address] [place] [address] [facility] Referral ID Status Reason Start Date Expiration Date V isits Requested Visits Authorized [id number] Authorized 12/27/2023 12/26/2024 8 8 * Outpatient (Routine) - Authorized Specialty Diagnoses / Procedures Referred By Contac t Referred To Contact Marilin Kaiser M.D. [address] [place] [address] [facility] Referral ID Status Reason Start Date Expiration Date V isits Requested Visits Authorized [id number] Authorized 12/27/2023 06/27/2025 1 1 * Outpatient (Routine) - Authorized Specialty Diagnoses / Procedures Referred By Contac t Referred To Contact Diagnoses Primary Malignant Neoplasm Of Prostate (HCC) Procedures NM Post Therapy Iris-177 PSMA Monitoring Whole Body with SPECT CT Marilin Bland M.D. [address] [place] [address] [facility] Referral ID Status Reason Start Date Expiration Date V isits Requested Visits Authorized [id number] Authorized 12/27/2023 12/26/2024 8 8 * Outpatient (Routine) - Authorized Specialty Diagnoses / Procedures Referred By Morenitaac t Referred To Contact Diagnoses Primary Malignant Neoplasm Of Prostate (HCC) Procedures NM Therapy Iris-177 PSMA Marilin Kaiser M.D. [address] [place] [address] [facility] Referral ID Status Reason Start Date Expiration Date V isits Requested Visits Authorized [id number] Authorized 12/27/2023 12/26/2024 8 8 * Outpatient (Routine) - Authorized Specialty Diagnoses / Procedures Referred By Javon t Referred To Contact Marilin Kaiser M.D. [address] [place] [address] [facility] Referral ID Status Reason Start Date Expiration Date V isits Requested Visits Authorized [id number] Authorized 12/27/2023 06/27/2025 1 1 * Outpatient (Routine) - Authorized Specialty Diagnoses / Procedures Referred By Javon t Referred To Contact Diagnoses Primary Malignant Neoplasm Of Prostate (HCC) Procedures NM Post Therapy Iris-177 PSMA Monitoring Whole Body with SPECT CT Multiple Marilin Kaiser M.D. [address] [place] [address] [facility] Referral ID Status Reason Start Date Expiration Date V isits Requested Visits Authorized [id number] Authorized 12/27/2023 12/26/2024 8 8 * Outpatient (Routine) - Authorized Specialty Diagnoses / Procedures Referred By Contac t Referred To Contact Diagnoses Primary Malignant Neoplasm Of Prostate (HCC) Procedures NM Therapy Irsi-177 PSMA Marilin Kaiser M.D. [address] [place] [address] [facility] Referral ID Status Reason Start Date Expiration Date V isits Requested Visits Authorized [id number] Authorized 12/27/2023 12/26/2024 8 8 * Outpatient (Routine) - Pending Review Specialty Diagnoses / Procedures Referred By Javon lopez Referred To Contact Radiology Diagnoses Primary Malignant Neoplasm Of Prostate (HCC) Marilin Kaiser M.D. [address] [place] [address] [facility] Referral ID Status Reason Start Date Expiration Date V isits Requested Visits Authorized [id number] Pending Review 12/27/2023 06/27/2025 1 1 Encounter Details Date Type Department Care Team (Late st Contact Info) Description 12/27/2023 Orders Only Department of Oncology in [place], [place] [address] [place] [address] Renetta Tan R.N. [address], [place] [address] Primary Malignant Neoplasm Of Prostate (HCC) (Primary [...] How often do you attend chur or presybeterian services? Never 12/21/2021 Do you belong to any clubs o r organizations such as moravian groups, unions, fraternal or athletic groups, or [...] and heating? Not hard at all 01/24/2023 [facility] [place] of Occupat ional Health - Occupational Stress [...] living situation today? I have a [facility] place to live 01/24/2023 Education Answer Date Recorded What is the highest level of school you have completed or the highest degree you have received? Master's degree (e.g., MA, MS, Gail, MEd, WOOL GRADER, JAMIE) 12/21/2021 Sex and Gender Information Value Date Recorded Sex Assigned at Male 12/21/2021 7:22 AM CDT Gender Identity Male 12/21/2021 7:22 AM CDT Sexual Orientation Straight 12/21/2021 7: 22 AM CDT documented as of this encounter Plan of Treatment Upcoming Encounters Date Type Department Care Team (Late st Contact Info) Description 03/04/2024 1:15 PM CDT Appointment Department of Radiology in [place], [place] [address] [place] [address] Marilin Kaiser M.D. [address] [place] [phone] 03/04/2024 1:30 PM CDT Appointment Department of Radiology in [address] [address] Marilin Kaiser M.D. [address] [place] [address] 03/05/2024 9:15 AM CDT Appointment Department of Radiology in [address] [address] Marilin Kaiser M.D. [address] [place] [address] 04/15/2024 1:15 PM CDT Appointment Department of Radiology in [address] [address] Marilin Kaiser M.D. [address] [place] [address] 04/15/2024 1:30 PM CDT Appointment Department of Radiology in [address] [address] Marilin Kaiser M.D. [address] [place] [address] 04/16/2024 9:15 AM CDT Appointment Department of Radiology in [address] [address] Marilin Kaiser M.D. [address] [place] [address] 05/27/2024 12:45 PM CDT Appointment Department of Radiology in [address] [address] Marilin Kiaser M.D. [address] [place] [address] 05/27/2024 1:00 PM CDT Appointment Department of Radiology in [place] [address] [place] [address] Marilin Kaiser M.D. [address] [place] [address] 05/28/2024 9:15 AM CDT Appointment Department of Radiology in [address] [address] Marilin Kaiser M.D. [address] [place] [address] 07/08/2024 1:15 PM LAUNDRY AIDE Appointment Department of Radiology in [address] [address] Marilin Kaiser M.D. [address] [place] [address] 07/08/2024 1:30 PM LAUNDRY AIDE Appointment Department of Radiology in [address] [address] Marilin Kaiser M.D. [address] [place] [address] 07/09/2024 9:45 AM LAUNDRY AIDE Appointment Department of Radiology in [address] [address] Marilin Kaiser M.D. [address] [place] [address] 08/19/2024 12:45 PM LAUNDRY AIDE Appointment Department of Radiology in [place], [place] [address] [place] [address] Marilin Kaiser M.D. [address] [place] [address] 08/19/2024 1:00 PM LAUNDRY AIDE Appointment Department of Radiology in [place], [place] [address] [place] [address] Marilin Kaiser M.D. [address] [place] [address] 08/20/2024 9:45 AM LAUNDRY AIDE Appointment Department of Radiology in [place] [address] [place] [address] Marilin Kaiser M.D. [address] [place] [address] Scheduled Orders Name Type Priority Associated Diagnoses Orde r Schedule NM Therapy Iris-177 PSMA Imaging RAD - Routine (most inpatients and all outpatients) Primary Malignant Neoplasm Of Prostate (HCC) Expected: 03/04/2024, Expires: 03/28/2025 NM Post Therapy Iris-177 PSMA Monitoring Whole Body with SPECT CT Multiple Imaging RAD - Routine (most inpatients and all outpatients) Primary Malignant Neoplasm Of Prostate (HCC) Expected: 03/05/2024, Expires: 03/28/2025 NM Therapy Iris-177 PSMA Imaging RAD - Routine (most inpatients and all outpatients) Primary Malignant Neoplasm Of Prostate (HCC) Expected: 04/15/2024, Expires: 03/28/2025 NM Post Therapy Iris-177 PSMA Monitoring Whole Body with SPECT CT Multiple Imaging RAD - Routine (most inpatients and all outpatients) Primary Malignant Neoplasm Of Prostate (HCC) Expected: 04/16/2024, Expires: 03/28/2025 NM Therapy Iris-177 PSMA Imaging RAD - Routine (most inpatients and all outpatients) Primary Malignant Neoplasm Of Prostate (HCC) Expected: 05/27/2024, Expires: 03/28/2025 NM Post Therapy Iris-177 PSMA Monitoring Whole Body with SPECT CT Multiple Imaging RAD - Routine (most inpatients and all outpatients) Primary Malignant Neoplasm Of Prostate (HCC) Expected: 05/28/2024, Expires: 03/28/2025 NM Therapy Iris-177 PSMA Imaging RAD - Routine (most inpatients and all outpatients) Primary Malignant Neoplasm Of Prostate (HCC) Expected: 07/08/2024, Expires: 03/28/2025 NM Post Therapy Iris-177 PSMA Monitoring Whole Body with SPECT CT Multiple Imaging RAD - Routine (most inpatients and all outpatients) Primary Malignant Neoplasm Of Prostate (HCC) Expected: 07/09/2024, Expires: 03/28/2025 NM Therapy Iris-177 PSMA Imaging RAD - Routine (most inpatients and all outpatients) Primary Malignant Neoplasm Of Prostate (HCC) Expected: 08/19/2024, Expires: 03/28/2025 NM Post Therapy Iris-177 PSMA Monitoring Whole Body with SPECT CT Multiple Imaging RAD - Routine (most inpatients and all outpatients) Primary Malignant Neoplasm Of Prostate (HCC) Expected: 08/19/2024, Expires: 03/28/2025 Scheduled Referrals Name Type Priority Associated Diagnoses Orde r Schedule Radiology - Nuclear medicine consult (clinic) Outpatient Referral Routine Primary Malignant Neoplasm Of Prostate (HCC) Expected: 01/22/2024, Expires: 03/28/2025 Radiology office visit (clinic) Outpatient Referral Routine Expected: 03/04/2024, Expires: 03/28/2025 Radiology office visit (clinic) Outpatient Referral Routine Expected: 04/15/2024, Expires: 03/28/2025 Radiology office visit (clinic) Outpatient Referral Routine Expected: 05/27/2024, Expires: 03/28/2025 Radiology office visit (clinic) Outpatient Referral Routine Expected: 07/08/2024, Expires: 03/28/2025 Radiology office visit (clinic) Outpatient Referral Routine Expected: 08/19/2024, Expires: 03/28/2025 documented as of this encounter Results * NM Post Therapy [...] vertex to the thighs with low dose, brw-lvitlhfsdywx-tjosamgjm CT for attenuation correction and anatomic localization,and [...] findings on the noncontrast low-dose CT: Right fwbuqUlts-S-Nsgg tip at the low SVC. Stable 3 [...] PSMA expression score: 3 Marilin Kaiser M.[place]. [facility] [place] * NM Therapy Iris-177 PSMA [...] administration of Iris-177 PSMA cycle 1. Marilin CHEN NM PROCEDURES documented in this encounter Visit Diagnoses Diagnosis Primary Malignant Neoplasm Of Prostate (HCC)- Primary Primary Malignant Neoplasm Of Prostate (HCC) Primary Malignant Neoplasm Of Prostate (HCC) documented in this encounter Care Teams Non Destructive Tester Relationship Specialty Start Date End Date Elsewhere, Pcp PCP - General Family Medicine 08/31/20 documented as of this encounter
--- OUTSIDE RECORDS SUMMARY | 2024-02-10 17:35 | XMS_ITS | Encounter Summary ---
Author Organization [facility] Address [address] [place] [address] Care Team Providers Care Vascular Physician Name Role Phone Elsewhere, Pcp Primary Care Provider Unavailabl e Encounter Details Date Type Department Care Team (Late st Contact Info) Description 12/26/2023 Orders Only Department of Oncology in [place], [place] [address] [place] [phone] Marilin Kaiser M.D. [address] [place] [phone] Social History Tobacco Use Types Packs/Day Years [...] often do you attend chur ch or episcopal services? Never 12/21/2021 Do you belong to [...] and heating? Not hard at all 01/24/2023 [facility] of Occupat ional Health - Occupational Stress [...] your living situation today? I have a [facility] place to live 01/24/2023 Education Answer Date Recorded What is the highest level of school you have completed or the highest degree you have received? Master's degree (e.g., MA, MS, Gail, MEd, ASSISTANT PROFESSOR OF PHILOSOPHY, JAMIE) 12/21/2021 Sex and Gender Information Value Date Recorded Sex Assigned at Male 12/21/2021 7:22 AM CDT Gender Identity Male 12/21/2021 7:22 AM CDT Sexual Orientation Straight 12/21/2021 7: 22 AM CDT documented as of this encounter Plan of Treatment Upcoming Encounters Date Type Department Care Team (Late st Contact Info) Description 03/04/2024 1:15 PM CDT Appointment Department of Radiology in [place], [place] [address] [place] [address] Marilin Kaiser M.D. [address] [place] [address] 03/04/2024 1:30 PM CDT Appointment Department of Radiology in [place], [place] [address] [place] [address] Marilin Kaiser M.D. [address] [place] [address] 03/05/2024 9:15 AM CDT Appointment Department of Radiology in [address] [address] Marilin Kaiser M.D. [address] [place] [address] 04/15/2024 1:15 PM CDT Appointment Department of Radiology in [address] [address] Marilin Kaiser M.D. [address] [place] [address] 04/15/2024 1:30 PM CDT Appointment Department of Radiology in [address] [address] Marilin Kaiser M.D. [address] [place] [address] 04/16/2024 9:15 AM CDT Appointment Department of Radiology in [address] [address] Marilin Kaiser M.D. [address] [place] [address] 05/27/2024 12:45 PM CDT Appointment Department of Radiology in [address] [address] Marilin Kaiser M.D. [address] [place] [address] 05/27/2024 1:00 PM CDT Appointment Department of Radiology in [address] [address] Marilin Kiaser M.D. [address] [place] [address] 05/28/2024 9:15 AM CDT Appointment Department of Radiology in [place], [place] [address] [place] [address] Marilin Kaiser M.D. [address] [place] [address] 07/08/2024 1:15 PM SENIOR STORAGE ADMINISTRATOR Appointment Department of Radiology in [place] [address] [place] [address] Marilin Kaiser M.D. [address] [place] [address] 07/08/2024 1:30 PM SENIOR STORAGE ADMINISTRATOR Appointment Department of Radiology in [place] [address] [place] [address] Marilin Kaiser M.D. [address] [place] [address] 07/09/2024 9:45 AM SENIOR STORAGE ADMINISTRATOR Appointment Department of Radiology in [place] [address] [place] [address] Marilin Kaiser M.D. [address] [place] [address] 08/19/2024 12:45 PM SENIOR STORAGE ADMINISTRATOR Appointment Department of Radiology in [place] [address] [place] [address] Marilin Kaiser M.D. [address] [place] [address] 08/19/2024 1:00 PM SENIOR STORAGE ADMINISTRATOR Appointment Department of Radiology in [place], [place] [address] [place] [address] Marilin Kaiser M.D. [address] [place] [address] 08/20/2024 9:45 AM SENIOR STORAGE ADMINISTRATOR Appointment Department of Radiology in [address] [address] Marilin Kaiser M.D. [address] [place] [address] documented as of this encounter Visit Diagnoses Not on filedocumented in this encounter Care Teams Vascular Physician Relationship Specialty Start Date End Date Elsewhere, Pcp PCP - General Family Medicine 08/31/20 documented as of this encounter
--- OUTSIDE RECORDS SUMMARY | 2024-02-10 17:35 | XMS_ITS | Encounter Summary ---
Author Organization [facility] Address [address] [place] [address] Care Team Providers Care Medical Aide Name Role Phone Elsewhere, Pcp Primary Care Provider Unavailabl e Encounter Details Date Type Department Care Team (Late st Contact Info) Description 01/02/2024 Orders Only Department of Radiology in [place], [place] [address] [place] [address] Evelina Ontiveros, AMBER, C.N.P., D.N.P. [address] [place] [address] Primary Malignant Neoplasm Of Prostate (HCC) (Primary Dx); Secondary Malignant Neoplasm Bone (HCC) Social History [...] often do you attend chur ch or hindu services? Never 12/21/2021 Do you belong to any clubs o r organizations such as hinduism groups, unions, fraternal or athletic groups, or [...] and heating? Not hard at all 01/24/2023 [facility] - Occupational Stress Questionnaire Answer Date [...] your living situation today? I have a [facility] place to live 01/24/2023 Education Answer Date Recorded What is the highest level of school you have completed or the highest degree you have received? Master's degree (e.g., MA, MS, Gail, MEd, SENIOR SOFTWARE DEVELOPER, JAMIE) 12/21/2021 Sex and Gender Information Value Date Recorded Sex Assigned at Male 12/21/2021 7:22 AM CDT Gender Identity Male 12/21/2021 7:22 AM CDT Sexual Orientation Straight 12/21/2021 7: 22 AM CDT documented as of this encounter Plan of Treatment Upcoming Encounters Date Type Department Care Team (Late st Contact Info) Description 03/04/2024 1:15 PM CDT Appointment Department of Radiology in [place], [place] [address] [place] [address] Marilin Kaiser M.D. [address] [place] [address] 03/04/2024 1:30 PM CDT Appointment Department of Radiology in [place], [place] [address] [place] [address] Marilin Kaiser M.D. [address] [place] [address] 03/05/2024 9:15 AM CDT Appointment Department of Radiology in [place], [place] [address] [place] [address] Marilin Kaiser M.D. [address] [place] [address] 04/15/2024 1:15 PM CDT Appointment Department of Radiology in [place], [place] [address] [place] [address] Marilin Kaiser M.D. [address] [place] [address] 04/15/2024 1:30 PM CDT Appointment Department of Radiology in [place] [address] [place] [address] Marilin Kaiser M.D. [address] [place] [address] 04/16/2024 9:15 AM CDT Appointment Department of Radiology in [address] [address] Marilin Kaiser M.D. [address] [place] [address] 05/27/2024 12:45 PM CDT Appointment Department of Radiology in [address] [address] Marilin Kaiser M.D. [address] [place] [address] 05/27/2024 1:00 PM CDT Appointment Department of Radiology in [address] [address] Marilin Kaiser M.D. [address] [place] [address] 05/28/2024 9:15 AM CDT Appointment Department of Radiology in [address] [address] Marilin Kaiser M.D. [address] [place] [address] 07/08/2024 1:15 PM OPERATIONS INTELLIGENCE Appointment Department of Radiology in [address] [address] Marilin Kaiser M.D. [address] [place] [address] 07/08/2024 1:30 PM OPERATIONS INTELLIGENCE Appointment Department of Radiology in [address] [address] Marilin Kaiser M.D. [address] [place] [address] 07/09/2024 9:45 AM OPERATIONS INTELLIGENCE Appointment Department of Radiology in [address] [address] Marilin Kaiser M.D. [address] [place] [address] 08/19/2024 12:45 PM OPERATIONS INTELLIGENCE Appointment Department of Radiology in [address] [address] Marilin Kaiser M.D. [address] [place] [address] 08/19/2024 1:00 PM OPERATIONS INTELLIGENCE Appointment Department of Radiology in [place], [place] [address] [place] [address] Marilin Kaiser M.D. [address] [facility] [place] [address] 08/20/2024 9:45 AM OPERATIONS INTELLIGENCE Appointment Department of Radiology in [place], [place] [address] [place] [address] Marilin aKiser M.D. [address] [facility] [place] [address] documented as of this encounter Results * Interpretation of Outside [...] APRN, C.N.P., D.N.P. I MG MRI PROCEDURES documented in this encounter Visit Diagnoses Diagnosis Primary Malignant Neoplasm Of Prostate (HCC)- Primary Secondary Malignant Neoplasm Bone (HCC) Primary Malignant Neoplasm Of Prostate (HCC) Secondary Malignant Neoplasm Bone (HCC) documented in this encounter Care Teams Medical Aide Relationship Specialty Start Date End Date Elsewhere, Pcp PCP - General Family Medicine 08/31/20 documented as of this encounter
--- OUTSIDE RECORDS SUMMARY | 2024-02-10 17:35 | XMS_ITS | Encounter Summary ---
Author Organization [facility] Address [address] [place] [address] Care Team Providers Care Music Copyist Name Role Phone Elsewhere, Pcp Primary Care Provider Unavailabl e Reason for Referral * Outpatient (Routine) - Pending Review Specialty Diagnoses / Procedures Referred By Morenitaac t Referred To Contact Radiology Diagnoses Primary Malignant Neoplasm Of Prostate (HCC) Marilin Kaiser M.D. [address] [place] [address] [facility] Referral ID Status Reason Start Date Expiration Date V isits Requested Visits Authorized [id number] Pending Review 12/27/2023 06/27/2025 1 1 Reason for Visit * Outpatient (Routine) - Pending Review Specialty Diagnoses / Procedures Referred By Javon lopez Referred To Contact Radiology Diagnoses Primary Malignant Neoplasm Of Prostate (HCC) Marilin Kaiser M.D. [address] [place] [address] [facility] Referral ID Status Reason Start Date Expiration Date V isits Requested Visits Authorized [id number] Pending Review 12/27/2023 06/27/2025 1 1 Encounter Details Date Type Department Care Team (Latest Contact Info) Description 01/22/2024 11:46 AM CDT - 01/22/2024 2:02 PM CDT Hospital Encounter Department of Radiology in [place], [place] [address] [place] [address] Marilin Kaiser M.D. [address] [place] [phone] Miguelito Booth P.A.-C. [address] [place] [address] Primary Malignant Neoplasm Of Prostate (HCC) Social [...] often do you attend chur ch or baptism services? Never 12/21/2021 Do you belong to any clubs o r organizations such as anabaptist groups, unions, fraternal or athletic groups, or [...] heating? Not hard at all 01/24/2023 [facility] of Occupat ional Health - [...] Master's degree (e.g., MA, MS, Gail, MEd, COMMERCIAL ART INSTRUCTOR, JAMIE) 12/21/2021 Sex and Gender Information Value [...] tablet 01/22/2024 documented as of this encounter Consult Notes * Miguelito Booth P.A.-C. - 01/22/2024 12:30 PM CDT SUBJECTIVE REFERRING PROVIDER Marilin Kaiser M.D. [facility] / [facility] [address] NUCLEAR MEDICINE PROVIDER Miguelito Booth P.A.-C. Ismael Kline M.D., Ph.D. REASON FOR CONSULT presents for consultation for evaluation of disease process prior to initiation of Pluvicto treatment for progressive metastatic, castration- resistant prostate cancer. HISTORY OF PRESENT ILLNESS is a 78 y.o. male with progressive metastatic, castration-resistant prostate cancer, s/pradiation therapy and cryotherapy to the prostate in 2010 and 2018, respectively. He has received ADT, ARPIs and Taxane-based chemotherapy. The last cycle of chemotherapy was received on 06/03/2023. He continues on ADT. Metastatic disease is located in the bone. PSMA PET/CT from 12/24/2023 revealed progression of diffuse tracer avid osseous metastatic disease and multifocal intense tracer uptake throughout the prostate gland compatible with prostate adenocarcinoma. miPSMA Expression Score: 3. Mr. Thibodeaux is experiencing fatigue, decreased strength, and generalized achiness as a result of his disease and associated therapies. He reports being very active in recent years and that his disease has decreased his ability to do things he enjoys (e.g., hiking, pickleball). He has low back pain that he manages with Percocet as needed. He usually takes it once every other day or so. He rates the pain at 2/10 currently. Denies associated leg weakness, numbness, saddle anesthesia, or bowel/bladder dysfunction. He utilizes a cane due to pain and associated imbalance. He did have an outside MRIof his L-spine on 12/26/2023 which also revealed marked progression of metastatic disease in the spine but was negative for extra-axial tumor extension or spinal compression. 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 Also has a history of urethral stricture s/p dilation. He also has a left-sided ureteral stent most recently exchanged on 10/03/2023. Patient follows with a Dr. Rodrigues at [facility]. His next follow up appointment is scheduled in February. He endorses stress incontinence and uses 5-6 pads/day. Nocturia x 6. Denies a history of kidney stones, urinary retention, dysuria, or hesitancy. Most recent urology follow-up : PVR 279 mL. Oncology History Primary Malignant Neoplasm Of Prostate (HCC) 09/01/2010 Other 09/01/2010: PSA 6.47 ng/mL 10/30/2010: PSA 4.85 ng/mL 11/28/2010 Biopsy/Pathology Prostate biopsy was performed. Pathology demonstrated adenocarcinoma, Leola 3+4=7. Adenocarcinomawas an every biopsy specimen, generally with greater than 50% total surface area involved. Perineural invasion was also present. T1c. 01/29/2011 - 03/28/2011 Radiation Therapy Intensity modulated radiation therapy to the prostate to a dose of 7560 cGy in 42 fractions under the care of Dr. Rachael Sanford at [facility] in [place], [place]. 01/2011 - Biological/Targeted/Hormone Therapy Lupron 30 [...] and Procedures Cryotherapy with Dr. Yu at [facility]. The patient underwent placement of 13 cryo [...] 11/30/2021 Critical Imaging PSMA PET scan at [facility] demonstrated radiotracer positive lesion in the prostate [...] PROSTATE, LEFT, NEEDLE BIOPSY: 1. Prostatic adenocarcinoma, Leola score 5 + 5 = 10 (ISUP [...] Common Hereditary Cancers Panel (47 genes) via [employer]. See test report fordetails regarding genes analyzed and testing methodologies. RESULT: NEGATIVE FOR CLINICALLY ACTIONABLE VARIANTS No clinically actionable (pathogenic or likely pathogenic) variants were detected in the genes analyzed. One variant of uncertain significance was detected: POLE c.2134C>G ([id number]). No laboratory classifies this variant as clinically-actionable [...] fractions to a dose of 3000 cGy 01/22/2024 Other Radioligand Therapy Pluvicto: Cycle 1: 01/22/2024 Cycle 2: Cycle 3: Cycle 4: Cycle 5: Cycle 6: Rosa Maria Score: 10 poorly differentiated/high grade (5+5, Grade Group 5) Performance Status: ECOG status: 1 - symptoms but ambulatory REVIEW OF SYSTEMS Pertinent items are noted in HPI; all other systems reviewed and negative. OBJECTIVE LABORATORY RESULTS Lab Results Component Value Date [...] 1. Primary Malignant Neoplasm Of Prostate (HCC) Mr. Thibodeaux meets criteria to proceed with Pluvicto therapy today. Labs were done at [facility] and the results are located in the media tab. He is anemic with a hemoglobin of 9.4. Platelet count (160), leukocytes (4.94), and ANC (4.0) are within normal limits. PSA has increased to 179 and alkaline phosphatase is increased to 425. Lab values are otherwise satisfactory. Discussed LuPSMAtherapy in detail and all questions were answered. PSMA PET/CT from 12/24/2023 revealed progression of diffuse tracer avid osseous metastatic disease and multifocal intense tracer uptake throughout the prostate gland compatible with prostate adenocarcinoma. miPSMA Expression Score: 3.He did have an outside MRI of his L-spine on 12/26/2023 which also revealed marked progression of metastatic diseasein the spine but was negative for extra-axial tumor extension or spinal compression. Patient deniesred flag symptoms. The plan will be for Mr. Thibodeaux to receive a dose of 200 mCi. Mr. Thibodeaux is feeling well and indicates he is ready to proceed with treatment cycle 1 today. 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 Also has a history of urethral stricture s/p dilation. He also has a left-sided ureteral stent most recently exchanged on 10/03/2023. Patient follows with a Dr. Rodrigues at [facility]. His next follow up appointment is scheduled in February. He endorses stress incontinence and uses 5-6 pads/day. Nocturia x 6. Denies a history of kidney stones, urinary retention, dysuria, or hesitancy. Most recent urology follow-up : PVR 279 mL. Discussed that if he develops urinary retention that he should be seen in the ED for catheterization. We discussed what to expect during Pluvicto therapy. We discussed the common side effects, including fatigue, dry eyes, dry mouth, nausea, GI discomfort including diarrhea or constipation, rarely vomiting, loss of appetite, increased bone/joint pain, decreased blood cell counts (anemia, increased risk of infection, increased risk of bleeding), reduced kidney function and the precautions taken to avoid or minimize these effects. We discussed the potential long terms side effects of therapy. These include decreased renal function, bone marrow suppression. We discussed the need for follow up laboratory analysis for monitoring of the bone marrow function with his primary physician. Radiation safety concerns were addressed. We discussed the limitations related to time with family and friends during therapy. We discussed the need for maintaining hygiene and proper bathroom etiquette to ensure those in the community are not exposed to the therapy medication. A pamphlet was givento Mr. Thibodeaux related to radiation safety. A therapy travel card was also given, with instructionsrelated to possible radiation detectors at places of travel, such as airports. This card should be carried for 3 months. PATIENT EDUCATION Ready to learn, no apparent learning barriers were identified; learning preferences include listening. Explained diagnosis and treatment plan; Mr. Thibodeaux expressed understanding of the content. RADIATION SAFETY Reviewed radiation safety precautions. A copy was provided to . Mr. Thibodeaux expressed understanding and agreement with guidelines. CARE TEAM Discussed with the patient we work together as a care team of physicians, nurse practitioners/physician assistants, nurses and other office support associate that specialize in this treatment. Also, reviewed the importance of maintaining ongoing care with Bertha and local oncology team, as well as primary care naeem medley. INFORMED CONSENT Written consent was obtained from Mr. Thibodeaux. I have discussed the Pluvicto treatment and associated consent with Solis Thibodeaux, 01/22/24. The potential risks and benefits have been discussed along with alternative therapies. Mr. Thibodeaux has been given an opportunity to review the consent form, and questions have been answered. Mr. Thibodeaux has provided consent for treatment. The consent form has been signed and dated by Mr. Thibodeaux in my presence. ADMINISTRATIVE BILLING Total time spent 60 minutes, which includes FTF time as well as chart review, review of labs and other tests and communication with other providers. documented in this encounter Plan of Treatment Upcoming Encounters Date Type Department Care Team (Late st Contact Info) Description 03/04/2024 1:15 PM CDT Appointment Department of Radiology in [place], [place] [address] [place] [address] Marilin Kaiser M.D. [address] [place] [address] 03/04/2024 1:30 PM CDT Appointment Department of Radiology in [address] [address] Marilin Kaiser M.D. [address] [place] [address] 03/05/2024 9:15 AM CDT Appointment Department of Radiology in [address] [address] Marilin Kaiser M.D. [address] [place] [address] 04/15/2024 1:15 PM CDT Appointment Department of Radiology in [address] [address] Marilin Kaiser M.D. [address] [place] [address] 04/15/2024 1:30 PM CDT Appointment Department of Radiology in [address] [address] Marilin Kaiser M.D. [address] [place] [address] 04/16/2024 9:15 AM CDT Appointment Department of Radiology in [place], [place] [address] [place] [address] Marilin Kaiser M.D. [address] [place] [address] 05/27/2024 12:45 PM CDT Appointment Department of Radiology in [address] [address] Marilin Kaiser M.D. [address] [place] [address] 05/27/2024 1:00 PM CDT Appointment Department of Radiology in [address] [address] Marilin Kaiser M.D. [address] [place] [address] 05/28/2024 9:15 AM CDT Appointment Department of Radiology in [address] [address] Marilin Kaiser M.D. [address] [place] [address] 07/08/2024 1:15 PM SEWING MACHINE OPERATOR PAPER BAGS Appointment Department of Radiology in [address] [address] Marilin Kaiser M.D. [address] [place] [address] 07/08/2024 1:30 PM SEWING MACHINE OPERATOR PAPER BAGS Appointment Department of Radiology in [address] [address] Marilin Kaiser M.D. [address] [place] [address] 07/09/2024 9:45 AM SEWING MACHINE OPERATOR PAPER BAGS Appointment Department of Radiology in [place], [place] [address] [place] [address] Marilin Kaiser M.D. [address] [place] [address] 08/19/2024 12:45 PM SEWING MACHINE OPERATOR PAPER BAGS Appointment Department of Radiology in [address] [address] Marilin Kaiser M.D. [address] [place] [address] 08/19/2024 1:00 PM SEWING MACHINE OPERATOR PAPER BAGS Appointment Department of Radiology in [address] [address] Marilin Kaiser M.D. [address] [place] [address] 08/20/2024 9:45 AM SEWING MACHINE OPERATOR PAPER BAGS Appointment Department of Radiology in [address] [address] Marilin Kaiser M.D. [address] [place] [address] Scheduled Referrals Name Type Priority Associated Diagnoses Order Schedule Radiology - Nuclear medicine consult (clinic) Outpatient Referral Routine Primary Malignant Neoplasm Of Prostate (HCC) Once for 1 Occurrences starting 01/22/2024 until 01/22/2024 documented as of this encounter Visit Diagnoses Diagnosis Primary Malignant Neoplasm Of Prostate (HCC) documented in this encounter Care Teams Music Copyist Relationship Specialty Start Date End Date Elsewhere, Pcp PCP - General Family Medicine 08/31/20 documented as of this encounter
--- OUTSIDE RECORDS SUMMARY | 2024-02-10 17:35 | XMS_ITS | Encounter Summary ---
Author Organization [facility] Address [address] [place] [address] Care Team Providers Care Fishing Reel Assembler Name Role Phone Elsewhere, Pcp Primary Care Provider Unavailabl e Encounter Details Date Type Department Care Team (Late st Contact Info) Description 12/26/2023 Orders Only Department of Oncology in [place], [place] [address] [address] Renetta Tan R.N. [address] [phone] Secondary Malignant Neoplasm Bone (HCC) (Primary Dx); [...] often do you attend chur ch or advent services? Never 12/21/2021 Do you belong to [...] and heating? Not hard at all 01/24/2023 [facility] of Occupat ional Health - [...] your living situation today? [facility] 01/24/2023 Education Answer Date Recorded What is the highest level of school you have completed or the highest degree you have received? Master's degree (e.g., MA, MS, Gail, MEd, MEDICAL ORDERLY, JAMIE) 12/21/2021 Sex and Gender Information Value Date Recorded Sex Assigned at Male 12/21/2021 7:22 AM CDT Gender Identity Male 12/21/2021 7:22 AM CDT Sexual Orientation Straight 12/21/2021 7: 22 AM CDT documented as of this encounter Plan of Treatment Upcoming Encounters Date Type Department Care Team (Late st Contact Info) Description 03/04/2024 1:15 PM CDT Appointment Department of Radiology in [place], [place] [address] [place] [address] Marilin Kaiser M.D. [address] [place] [phone] 03/04/2024 1:30 PM CDT Appointment Department of Radiology in [place], [place] [address] [place] [address] Marilin Kaiser M.D. [address] [place] [address] 03/05/2024 9:15 AM CDT Appointment Department of Radiology in [place], [place] [address] [place] [address] Marilin Kaiser M.D. [address] [place] [address] 04/15/2024 1:15 PM CDT Appointment Department of Radiology in [address] [address] Marilin Kaiser M.D. [address] [place] [address] 04/15/2024 1:30 PM CDT Appointment Department of Radiology in [address] [address] Marilin Kaiser M.D. [address] [place] [address] 04/16/2024 9:15 AM CDT Appointment Department of Radiology in [address] [address] Marilin Kaiser M.D. [address] [place] [address] 05/27/2024 12:45 PM CDT Appointment Department of Radiology in [address] [address] Marilin Kaiser M.D. [address] [place] [address] 05/27/2024 1:00 PM CDT Appointment Department of Radiology in [address] [address] Mrailin Kaiser M.D. [address] [place] [address] 05/28/2024 9:15 AM CDT Appointment Department of Radiology in [address] [address] Marilin Kaiser M.D. [address] [place] [address] 07/08/2024 1:15 PM POST ACUTE CARE REGISTERED NURSE Appointment Department of Radiology in [address] [address] Marilin Kaiser M.D. [address] [place] [address] 07/08/2024 1:30 PM POST ACUTE CARE REGISTERED NURSE Appointment Department of Radiology in [address] [address] Marilin Kaiser M.D. [address] [place] [address] 07/09/2024 9:45 AM POST ACUTE CARE REGISTERED NURSE Appointment Department of Radiology in [address] [address] Marilin Kaiser M.D. [address] [place] [address] 08/19/2024 12:45 PM POST ACUTE CARE REGISTERED NURSE Appointment Department of Radiology in [address] [address] Marilin Kaiser M.D. [address] [place] [address] 08/19/2024 1:00 PM POST ACUTE CARE REGISTERED NURSE Appointment Department of Radiology in [place], [place] [address] [place] [address] Marilin Kaiser M.D. [address] [place] [address] 08/20/2024 9:45 AM POST ACUTE CARE REGISTERED NURSE Appointment Department of Radiology in [place] [address] [place] [address] Marilin Kaiser M.D. [address] [place] [address] documented as of this encounter Visit Diagnoses Diagnosis Secondary Malignant Neoplasm Bone (HCC)- Primary Primary Malignant Neoplasm Of Prostate (HCC) documented in this encounter Care Teams Fishing Reel Assembler Relationship Specialty Start Date End Date Elsewhere, Pcp PCP - General Family Medicine 08/31/20 documented as of this encounter
--- OUTSIDE RECORDS SUMMARY | 2024-02-10 17:35 | XMS_ITS | Encounter Summary ---
Author Organization [facility] Address [address] [place] [address] Care Team Providers Care Terrazzo Worker Name Role Phone Elsewhere, Pcp Primary Care Provider Unavailabl e Encounter Details Date Type Department Care Team (Late st Contact Info) Description 12/26/2023 Orders Only Department of Oncology in [place], [place] [address] [place] [phone] Marilin Kaiser M.D. [address] [place] [phone] Social History Tobacco Use Types Packs/Day Years [...] often do you attend chur ch or scientology services? Never 12/21/2021 Do you belong to any clubs o r organizations such as presybeterian groups, unions, fraternal or athletic groups, or [...] and heating? Not hard at all 01/24/2023 [facility] of Occupat ional Health - Occupational [...] Master's degree (e.g., MA, MS, Gail, MEd, OPHTHALMIC MEDICAL TECHNOLOGIST, JAMIE) 12/21/2021 Sex and Gender Information Value Date Recorded Sex Assigned at Male 12/21/2021 7:22 AM CDT Gender Identity Male 12/21/2021 7:22 AM CDT Sexual Orientation Straight 12/21/2021 7: 22 AM CDT documented as of this encounter Plan of Treatment Upcoming Encounters Date Type Department Care Team (Late st Contact Info) Description 03/04/2024 1:15 PM CDT Appointment Department of Radiology in [place], [place] [address] [place] [address] Marilin Kaiser M.D. [address] [place] [address] 03/04/2024 1:30 PM CDT Appointment Department of Radiology in [place], [place] [address] [place] [address] Marilin Kaiser M.D. [address] [place] [address] 03/05/2024 9:15 AM CDT Appointment Department of Radiology in [address] [address] Marilin Kaiser M.D. [address] [place] [address] 04/15/2024 1:15 PM CDT Appointment Department of Radiology in [address] [address] Marilin Kaiser M.D. [address] [place] [address] 04/15/2024 1:30 PM CDT Appointment Department of Radiology in [address] [address] Marilin Kaiser M.D. [address] [place] [address] 04/16/2024 9:15 AM CDT Appointment Department of Radiology in [address] [address] Marilin Kaiser M.D. [address] [place] [address] 05/27/2024 12:45 PM CDT Appointment Department of Radiology in [address] [address] Marilin Kaiser M.D. [address] [place] [address] 05/27/2024 1:00 PM CDT Appointment Department of Radiology in [address] [address] Marilin Kaiser M.D. [address] [place] [address] 05/28/2024 9:15 AM CDT Appointment Department of Radiology in [place], [place] [address] [place] [address] Marilin Kaiser M.D. [address] [place] [address] 07/08/2024 1:15 PM MARINE ELECTRICIAN HELPER Appointment Department of Radiology in [place] [address] [place] [address] Marilin Kaiser M.D. [address] [place] [address] 07/08/2024 1:30 PM MARINE ELECTRICIAN HELPER Appointment Department of Radiology in [place] [address] [place] [address] Marilin Kaiser M.D. [address] [place] [address] 07/09/2024 9:45 AM MARINE ELECTRICIAN HELPER Appointment Department of Radiology in [place] [address] [place] [address] Marilin Kaiser M.D. [address] [place] [address] 08/19/2024 12:45 PM MARINE ELECTRICIAN HELPER Appointment Department of Radiology in [place] [address] [place] [address] Marilin Kaiser M.D. [address] [place] [address] 08/19/2024 1:00 PM MARINE ELECTRICIAN HELPER Appointment Department of Radiology in [place], [place] [address] [place] [address] Marilin Kaiser M.D. [address] [place] [address] 08/20/2024 9:45 AM MARINE ELECTRICIAN HELPER Appointment Department of Radiology in [address] [address] Marilin Kaiser M.D. [address] [place] [address] documented as of this encounter Visit Diagnoses Not on filedocumented in this encounter Care Teams Terrazzo Worker Relationship Specialty Start Date End Date Elsewhere, Pcp PCP - General Family Medicine 08/31/20 documented as of this encounter
--- OUTSIDE RECORDS SUMMARY | 2024-02-10 17:35 | XMS_ITS | Encounter Summary ---
Author Organization [facility] Address [address] [place] [address] Care Team Providers Care Transcript Evaluator Name Role Phone Elsewhere, Pcp Primary Care Provider Unavailabl e Encounter Details Date Type Department Care Team (Late st Contact Info) Description 01/02/2024 Clinical Communication Department of Radiology in [place], [place] [address] [place] [address] Peterson Rodas Social History Tobacco Use Types [...] often do you attend chur ch or adventist services? Never 12/21/2021 Do you belong to any clubs o r organizations such as alevism groups, unions, fraternal or athletic groups, or [...] and heating? Not hard at all 01/24/2023 [facility] - [...] your living situation today? I have a [facility] place to live 01/24/2023 Education Answer Date Recorded What is the highest level of school you have completed or the highest degree you have received? Master's degree (e.g., MA, MS, Gail, MEd, WELFARE INVESTIGATOR, JAMIE) 12/21/2021 Sex and Gender Information Value Date Recorded Sex Assigned at Male 12/21/2021 7:22 AM CDT Gender Identity Male 12/21/2021 7:22 AM CDT Sexual Orientation Straight 12/21/2021 7: 22 AM CDT documented as of this encounter Miscellaneous Notes * Telephone Encounter - Evelina Ontiveros APRN, C.N.P., D.N.P. - 01/13/2024 1:44 PM CDT I have contacted Dr. Castillo's team via email to identify when labs and office visit is scheduled to ensure we get results prior to therapy. documented in this encounter Plan of Treatment Upcoming Encounters Date Type Department Care Team (Late st Contact Info) Description 03/04/2024 1:15 PM CDT Appointment Department of Radiology in [place], [place] [address] [place] [address] Marilin Kaiser M.D. [address] [place] [address] 03/04/2024 1:30 PM CDT Appointment Department of Radiology in [address] [address] Marilin Kaiser M.D. [address] [place] [address] 03/05/2024 9:15 AM CDT Appointment Department of Radiology in [address] [address] Marilin Kaiser M.D. [address] [place] [address] 04/15/2024 1:15 PM CDT Appointment Department of Radiology in [address] [address] Marilin Kaiser M.D. [address] [place] [address] 04/15/2024 1:30 PM CDT Appointment Department of Radiology in [address] [address] Marilin Kaiser M.D. [address] [place] [address] 04/16/2024 9:15 AM CDT Appointment Department of Radiology in [address] [address] Marilin Kaiser M.D. [address] [place] [address] 05/27/2024 12:45 PM CDT Appointment Department of Radiology in [address] [address] Marilin Kaiser M.D. [address] [place] [address] 05/27/2024 1:00 PM CDT Appointment Department of Radiology in [address] [address] Marilin Kaiser M.D. [address] [place] [address] 05/28/2024 9:15 AM CDT Appointment Department of Radiology in [address] [address] Marilin Kaiser M.D. [address] [place] [address] 07/08/2024 1:15 PM WAREHOUSE AND RECEIVING SUPERVISOR Appointment Department of Radiology in [address] [address] Marilin Kaiser M.D. [address] [place] [address] 07/08/2024 1:30 PM WAREHOUSE AND RECEIVING SUPERVISOR Appointment Department of Radiology in [address] [address] Marilin Kaiser M.D. [address] [place] [address] 07/09/2024 9:45 AM WAREHOUSE AND RECEIVING SUPERVISOR Appointment Department of Radiology in [address] [address] Marilin Kaiser M.D. [address] [place] [address] 08/19/2024 12:45 PM WAREHOUSE AND RECEIVING SUPERVISOR Appointment Department of Radiology in [place], [place] [address] [place] [address] Marilin Kaiser M.D. [address] [place] [address] 08/19/2024 1:00 PM WAREHOUSE AND RECEIVING SUPERVISOR Appointment Department of Radiology in [place], [place] [address] [place] [address] Marilin Kaiser M.D. [address] [place] [address] 08/20/2024 9:45 AM WAREHOUSE AND RECEIVING SUPERVISOR Appointment Department of Radiology in [address] [address] Marilin Kaiser M.D. [address] [place] [address] documented as of this encounter Visit Diagnoses Not on filedocumented in this encounter Care Teams Transcript Evaluator Relationship Specialty Start Date End Date Elsewhere, Pcp PCP - General Family Medicine 08/31/20 documented as of this encounter
--- OUTSIDE RECORDS SUMMARY | 2024-02-10 17:35 | XMS_ITS | Encounter Summary ---
Author Organization [facility] Address [address] [place] [address] Care Team Providers Care Shipmaster Name Role Phone Elsewhere, Pcp Primary Care Provider Unavailabl e Reason for Referral * Outpatient (Routine) - Authorized Specialty Diagnoses / Procedures Referred By Contac t Referred To Contact Diagnoses Primary Malignant Neoplasm Of Prostate (HCC) Procedures NM Therapy Iris-177 PSMA Marilin Kaiser M.D. [address] [place] [address] [facility] Referral ID Status Reason Start Date Expiration Date V isits Requested Visits Authorized [id number] Authorized 12/27/2023 12/26/2024 8 8 Reason for Visit * Outpatient (Routine) - Authorized Specialty Diagnoses / Procedures Referred By Javon lopez Referred To Contact Diagnoses Primary Malignant Neoplasm Of Prostate (HCC) Procedures NM Therapy Iris-177 PSMA Marilin Kaiser M.D. [address] [place] [address] [facility] Referral ID Status Reason Start Date Expiration Date V isits Requested Visits Authorized [id number] Authorized 12/27/2023 12/26/2024 8 8 Encounter Details Date Type Department Care Team (Latest Contact Info) Description 01/22/2024 11:46 AM CDT - 01/22/2024 11:59 PM CDT Hospital Encounter Department of Radiology in [place], [place] [address] [place] [address] Marilin Kaiser M.D. [address] [place] [address] Primary Malignant Neoplasm Of Prostate (HCC) Discharge [...] How often do you attend chur or caodaism services? Never 12/21/2021 Do you belong to any clubs o r organizations such as mandaeism groups, unions, fraternal or athletic groups, or [...] and heating? Not hard at all 01/24/2023 [facility] - Occupational Stress Questionnaire Answer Date Recorded [...] your living situation today? I have a [facility] place to live 01/24/2023 Education Answer Date Recorded What is the highest level of school you have completed or the highest degree you have received? Master's degree (e.g., MA, MS, Gail, MEd, VEHICLE TECHNICIAN, JAMIE) 12/21/2021 Sex and Gender Information Value Date Recorded Sex Assigned at Male 12/21/2021 7:22 AM CDT Gender Identity Male 12/21/2021 7:22 AM CDT Sexual Orientation Straight 12/21/2021 7: 22 AM CDT documented as of this encounter Last Filed Vital Signs Vital Sign Reading Time Taken Comments Blood Pressure 123/65 01/22/2024 1:59 PM CDT Pulse 72 01/22/2024 1:59 PM CDT Temperature - - Respiratory Rate - - Oxygen Saturation 99% 01/22/2024 1:59 PM CDT Inhaled Oxygen Concentration - - Weight - - Height - - Body Mass Index - - documented in this encounter Medications at Time of Discharge [...] tablet 01/22/2024 documented as of this encounter Nursing Notes * Chapis Lewis RNathaly. - 01/22/2024 1:59 PM CDT Patient tolerated Iris-177 therapy without any issues. Patient was encouraged to hydrate well and useproper bathroom etiquette. Left the department ambulatory. documented in this encounter Plan of Treatment Upcoming Encounters Date Type Department Care Team (Late st Contact Info) Description 03/04/2024 1:15 PM CDT Appointment Department of Radiology in [address] [address] Marilin Kaiser M.D. [address] [place] [address] 03/04/2024 1:30 PM CDT Appointment Department of Radiology in [address] [address] Marilin Kaiser M.D. [address] [place] [address] 03/05/2024 9:15 AM CDT Appointment Department of Radiology in [address] [address] Marilin Kaiser M.D. [address] [place] [address] 04/15/2024 1:15 PM CDT Appointment Department of Radiology in [address] [address] Marilin Kaiser M.D. [address] [place] [address] 04/15/2024 1:30 PM CDT Appointment Department of Radiology in [address] [address] Marilin Kaiser M.D. [address] [place] [address] 04/16/2024 9:15 AM CDT Appointment Department of Radiology in [place], [place] [address] [place] [address] Marilin Kaiser M.D. [address] [place] [address] 05/27/2024 12:45 PM CDT Appointment Department of Radiology in [address] [address] Marilin Kaiser M.D. [address] [place] [address] 05/27/2024 1:00 PM CDT Appointment Department of Radiology in [address] [address] Marilin Kaiser M.D. [address] [place] [address] 05/28/2024 9:15 AM CDT Appointment Department of Radiology in [address] [address] Marilin Kaiser M.D. [address] [place] [address] 07/08/2024 1:15 PM ROPING TENDER Appointment Department of Radiology in [address] [address] Marilin Kaiser M.D. [address] [place] [address] 07/08/2024 1:30 PM ROPING TENDER Appointment Department of Radiology in [address] [address] Marilin Kaiser M.D. [address] [place] [address] 07/09/2024 9:45 AM ROPING TENDER Appointment Department of Radiology in [place] [address] [place] [address] Marilin Kaiser M.D. [address] [place] [address] 08/19/2024 12:45 PM ROPING TENDER Appointment Department of Radiology in [address] [address] Marilin Kaiser M.D. [address] [place] [address] 08/19/2024 1:00 PM ROPING TENDER Appointment Department of Radiology in [address] [address] Marilin Kaiser M.D. [address] [place] [address] 08/20/2024 9:45 AM ROPING TENDER Appointment Department of Radiology in [address] [address] Marilin Kaiser M.D. [address] [place] [address] documented as of this encounter Procedures Procedure Name Priority Date/Time Associated Diagnosis Comments NM THERAPY IRIS-177 PSMA RAD - Routine (most inpatients and all outpatients) 01/22/2024 2:12 PM CDT Primary Malignant Neoplasm Of Prostate (HCC) documented in this encounter Results * NM Therapy Iris-177 PSMA (01/22/2024 2:12 [...] administration of Iris-177 PSMA cycle 1. Marilin TURNER PROCEDURES documented in this encounter Visit Diagnoses Diagnosis Primary Malignant Neoplasm Of Prostate (HCC) documented in this encounter Administered Medications Inactive Administered Medications - up to 3 most recent administrations Medication Order MAR Action Action Date Dose Rate Site lutetium Iris 177 vipivotide tetraxetan (Iris-177 Pluvicto) 144-220 millicurie, intravenous, Once, On Sat01/22/24 at 1415, For 1 dose, Imaging Protocol Orders, HAZARDOUS - Handle with care Given 01/22/2024 1:50 PM CDT 196 millicuries NaCl 0.9% infusion 250 mL 250 mL, intravenous, Once, On Sat01/22/24 at 1345, For 1 dose New Bag 01/22/2024 1:34 PM CDT 250 mL 100 mL/hr documented in this encounter Care Teams Shipmaster Relationship Specialty Start Date End Date Elsewhere, Pcp PCP - General Family Medicine 08/31/20 documented as of this encounter
--- OUTSIDE RECORDS SUMMARY | 2024-02-10 17:36 | XMS_ITS | Data Portability ---
Author Organization [facility], [facility] Address [address] [place] [address] Care Team Providers Care Viticulturist Name Role Phone BRADY WATERS Primary Care Provider Assessment No assessment recorded. Plan of Treatment Reminders Order Date Submit Date Provider Last Modified By Organization Details Last Modified Time Details Appointments ESTABLISH ED 20 2023 02:30P Josh Rodrigues MD Not available Not available Not available HOSPITAL 60 2023 07:30A Josh Rodrigues MD Not available Not available Not available Lab PSA, serum or plasma 2022 023 [email or web address] [facility], [address], [place], [address], 10/16/2022 09:54:18 urinalysi s, dipstick 2022 023 [facility], [address], [place], [address], 11/28/2022 10:45:27 urinalysi s, dipstick 2023 024 [facility], [address], [place], [address], 09/02/2023 14:46:28 urinalysi s, dipstick 2023 024 [facility], [address], [place], [address], 11/04/2023 14:27:12 culture, urine 2023 024 [facility], [address], [address], [place], [address], 11/05/2023 10:11:07 Referral None recorded. Procedures None recorded. Surgeries cystouret hroscopy, with calibrati on and/or dilation of urethral stricture or stenosis (SURG) 2022 023 [email or web address] Not available 11/26/2022 15:27:50 cystoscop y with ureteral stent exchange (SURG) 2023 024 Not available 09/02/2023 17:41:51 cystoscop y with ureteral stent exchange (SURG) 2023 024 Not available 12/20/2023 11:12:00 Imaging None recorded. Medication Orders Myrbetriq 50 mg tablet,ex tended release 2022 023 [facility], [address] [place] [address], [address], 09/02/2023 14:26:08 Cipro 500 mg tablet 2022 023 [facility], [place], [address], 09/02/2023 14:25:04 Eligard 45 mg (6 month) subcutane ous syringe 2022 023 0 [facility], [address] [place] [address], [address], 01/23/2023 12:48:05 Patient TargetsNo targets recorded. Patient InstructionsNo instructions recorded. Reason for Referral None Reported. Results Created Date Observation Date Name Description Value Unit Range Abnormal Flag LastModifiedBy Organization Detail LastModifiedTime 11/29/19 23 11/28/2022 urina lysis , dipst ick Color-Status Yellow Not Available [facility] [address], [place], [address], 11/28/2022 10:30:30 11/29/19 23 11/28/2022 urina lysis , dipst ick pH-Status 7.5 Not Available [facility] [address], [place], [address], 11/28/2022 10:30:30 11/29/19 23 11/28/2022 urina lysis , dipst ick Blood-Status Large Not Available [facility] [address], [place], [address], 11/28/2022 10:30:30 11/29/19 23 11/28/2022 urina lysis , dipst ick Leuko-Status Trace Not Available [facility] [address], [place], [address], 11/28/2022 10:30:30 09/02/19 24 09/02/2023 urina lysis , dipst ick Color-Status Yellow Not Available [facility] [address], [place], [address], 09/02/2023 14:28:46 09/02/19 24 09/02/2023 urina lysis , dipst ick Clarity-Stat us Clear Not Available [facility] [address], [place], [address], 09/02/2023 14:28:46 09/02/19 24 09/02/2023 urina lysis , dipst ick Sp Brandon-Stat us 1.020 Not Available [facility] [address], [place], [address], 09/02/2023 14:28:46 09/02/19 24 09/02/2023 urina lysis , dipst ick pH-Status 7.0 Not Available [facility] [address], [place], [address], 09/02/2023 14:28:46 09/02/19 24 09/02/2023 urina lysis , dipst ick Nitrates-Sta tus negati ve Not Available [facility] [address], [place], [address], 09/02/2023 14:28:46 09/02/19 24 09/02/2023 urina lysis , dipst ick Blood-Status Modera te Not Available [facility] [address], [place], [address], 09/02/2023 14:28:46 09/02/19 24 09/02/2023 urina lysis , dipst ick Leuko-Status Trace Not Available [facility] [address], [place], [address], 09/02/2023 14:28:46 09/02/19 24 09/02/2023 urina lysis , dipst ick Specimen Type Voided Not Available [facility] [address], [place], [address], 09/02/2023 14:28:46 09/02/19 24 09/02/2023 urina lysis , dipst ick Performed by Carlos jenkins RN Not Available [facility] [address], [place], [address], 09/02/2023 14:28:46 11/04/19 24 11/04/2023 URINE CULTU RE final report MICROB IOLOGY RESULT S Not Available [facility] [address], [place], [address], 11/05/2023 10:11:06 11/04/19 24 11/04/2023 urina lysis , dipst ick Color-Status Yellow Not Available [facility] [address], [place], [address], 11/04/2023 14:02:20 11/04/19 24 11/04/2023 urina lysis , dipst ick Clarity-Stat us Clear Not Available [facility] [address], [place], [address], 11/04/2023 14:02:20 11/04/19 24 11/04/2023 urina lysis , dipst ick Sp Brandon-Stat us 1.020 Not Available [facility] [address], [place], [address], 11/04/2023 14:02:20 11/04/19 24 11/04/2023 urina lysis , dipst ick pH-Status 7.0 Not Available [facility] [address], [place], [address], 11/04/2023 14:02:20 11/04/19 24 11/04/2023 urina lysis , dipst ick Protein-Stat us >=9.0 Not Available [facility] [address], [place], [address], 11/04/2023 14:02:20 11/04/19 24 11/04/2023 urina lysis , dipst ick Urobilinogen -Status 0.2 Not Available [facility] [address], [place], [address], 11/04/2023 14:02:20 11/04/19 24 11/04/2023 urina lysis , dipst ick Nitrates-Sta tus negati ve Not Available [facility] [address], [place], [address], 11/04/2023 14:02:20 11/04/19 24 11/04/2023 urina lysis , dipst ick Blood-Status Modera te Not Available [facility] [address], [place], [address], 11/04/2023 14:02:20 11/04/19 24 11/04/2023 urina lysis , dipst ick Leuko-Status Trace Not Available [facility] [address], [place], [address], 11/04/2023 14:02:20 11/04/19 24 11/04/2023 urina lysis , dipst ick Specimen Type Voided Not Available [facility] [address], [place], [address], 11/04/2023 14:02:20 11/04/19 24 11/04/2023 urina lysis , dipst ick Performed by haja RN Not Available [facility] [address], [place], [address], 11/04/2023 14:02:20 10/11/19 23 09/17/2022 CT, urogr am No observ ation record ed. [email or web address] [facility] [address], [place], [address], 10/10/2022 16:57:24 11/30/19 23 11/28/2022 bladd er scan (PROC ) No observ ation record ed. BARCODE Not Available 11/29/2022 09:07:29 01/18/20 23 01/10/2023 PET-C T, skull base to mid-t high scan No observ ation record ed. Not Available 01/17/2023 15:31:54 Result Notes None recorded. Procedures Surgical History Date Name Laterality Status Provider Name and Address Organization Details Recorded Time 4 Urinalysis completed Marc kang [facility] 11/04/2023 14:02:05 4 Bladder Scan completed Severino Rodrigues MD [address] [place] [address],[address], [place], [address], [facility] 11/04/2023 14:13:12 4 Urinalysis completed Severino Rodrigues MD [address] [place] [address],[address], [place], [address], [facility] 09/02/2023 14:26:49 4 Bladder Scan completed Severino Rodrigues MD [address] [place] [address],[address], [place], [address], [place] [facility] 09/02/2023 14:26:41 3 Bladder Scan completed Severino Rodrigues MD [address] [place] [address],[address], [place], [address], [facility] 01/23/2023 11:45:38 3 [facility] 12:47:33 3 Bladder Scan completed Severino Rodrigues MD [address] [place] [address],[address], [place], [address], [facility] 11/28/2022 10:30:26 3 CYSTOURETHROSCO PY, WITH CALIBRATION AND/OR DILATION OF URETHRAL STRICTURE OR STENOSIS (SURG) [facility] 11/15/2022 11:26:31 3 Cystoscopy- male completed Severino Rodrigues MD [address] [place] [address],[address], [place], [address], [facility] 10/15/2022 22:46:40 2 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 completed Severino Rodrigues MD [address] [place] [address],[address], [place], [address], [facility] 05/02/2022 16:17:09 9 colonoscopy completed Severino Rodrigues MD [address] [place] [address],[address], [address], [facility] 07/23/2022 11:34:54 Imaging Results Imaging Date Name Status LastModified by Organiz [facility] Details LastModified Time 09/17/2022 CT, urogram completed [email or web address] [facility] [address] [place], [address], 10/10/2022 16:57:24 11/28/2022 bladder scan (PROC) completed BARCODE Information not available 11/29/2022 09:07:29 01/10/2023 PET-CT, skull base to mid-thigh scan completed Information not available 01/17/2023 15:31:54 Procedure Notes None recorded. Medical Equipment None Reported. Allergies Allergen ID Allergen Name Allergen Category Reaction Reaction Severity Criticality Documentation Date Start Date Code Code System Note Provider Name and Address Organization Details Recorded Time 455687 allopurin ol medicatio n Not available Not available Not available 01/21/20202018 519 RxNorm Not Available [facility] Medications Name Sig Start Date [...] Updated DateTime 10/15/2022 185.42 cm 28.8 kg/m2 07836.14 farhana Rodrigues MD [address] [place] [address],[address], [address] [place] [address], [facility] 10/15/2022 14:42:13 Date Recorded Body height Body mass index (BMI) Body weight Provider Name and Address Organization Details Last Updated DateTime 11/28/2022 185.42 cm 28.8 kg/m2 41323.14 g Ro Benton [facility] 11/28/2022 10:26:34 Date Recorded Body height Body mass index (BMI) Body weight Provider Name and Address Organization Details Last Updated DateTime 01/23/2023 185.42 cm 28.8 kg/m2 35789.14 farhana Rodrigues MD [address] [place] [address],[address] 01/23/2023 11:42:10 Date Recorded Body height Provider Name an d Address Organization Details Last Updated DateTime 09/02/2023 185.42 cm Severino Rodrigues MD [address] [place] [address],[address] 09/02/2023 14:24:14 Date Recorded Body height Body mass index (BMI) Body weight Provider Name and Address Organization Details Last Updated DateTime 11/04/2023 185.42 cm 27.7 kg/m2 65839.4 farhana Rodrigues MD [address] [place] [address],[address] [facility] 11/04/2023 14:09:38 Social History Question Answer Notes LastModified by Organizat ion Details LastModified Time Tobacco Smoking Status Former Smoker Severino Rodrigues MD [address] [place] [address],[address], [address] [place] [address], [facility] 05/02/2022 16:16:26 What Is Your Level Of [...] 0 Information no t available 11/04/2023 Sex: Unknown Functional Status None recorded. Mental Status None recorded. Family History Relationship Description Onset Age of this Age Resolved Age Notes Father Family history of malignant neoplasm of prostate Mother Family history of br east cancer Medical History Condition Response High Blood Pressure Y GERD/Acid Reflux N Cancer Y High Cholesterol Y Heart Disease N Immunizations Vaccine Type Date Status Provider Name and Address Organization Details Recorded Time Influenza, adjuvanted, trivalent, PF 04/14/2018 completed Severino Rodrigues MD [address] [place] [address],[address], [address], [facility] 09/02/2023 14:24:21 Influenza, adjuvanted, trivalent, PF 05/13/2017 completed Severino Rodrigues MD [address] [place] [address],[address], [address], [facility] 09/02/2023 14:24:21 Influenza, adjuvanted, trivalent, PF 06/03/2019 completed Severino Rodrigues MD [address] [place] [address],[address], [address], [facility] 09/02/2023 14:24:21 zoster recombinant 01/04/2021 lg kelly MD [address] [place] [address],[address], [address], [facility] 09/02/2023 14:24:21 zoster recombinant 03/08/2021 completed Severino kelly MD [address] [place] [address],[address], [address], [facility] 09/02/2023 14:24:21 Influenza, high-dose, quadrivalent, PF 05/11/2020 completed Severino Rodrigues MD [address] [place] [address],[address], [address], [facility] 09/02/2023 14:24:21 Influenza, high-dose, quadrivalent, PF 05/24/2021 completed Severino Rodrigues MD [address] [place] [address],[address], [place], [address], [facility] 09/02/2023 14:24:21 Influenza, adjuvanted, quadrivalent, PF 04/13/2022 completed Severino Rodrigues MD [address] [place] [address],[address], [place], [address], [facility] 09/02/2023 14:24:21 COVID-19, mRNA, LNP-S, PF, 30 mcg/0.3 mL dose 08/31/2020 completed Severino Rodrigues MD [address] [place] [address],[address], [place], [address], [facility] 09/02/2023 14:24:21 COVID-19, mRNA, LNP-S, PF, 30 mcg/0.3 mL dose 09/21/2020 completed Severino Rodrigues MD [address] [place] [address],[address], [place], [address], [facility] 09/02/2023 14:24:21 COVID-19, mRNA, LNP-S, PF, 30 mcg/0.3 mL dose 05/24/2021 completed Severino Rodrigues MD [address] [place] [address],[address], [place], [address], [facility] 09/02/2023 14:24:21 COVID-19, mRNA, LNP-S, PF, 30 mcg/0.3 mL dose, dave-sucrose 10/30/2021 completed Severino Rodrigues MD [address] [place] [address],[address], [place], [address], [facility] 09/02/2023 14:24:21 COVID-19, mRNA, LNP-S, bivalent, PF, 50 mcg/0.5 mL or 25mcg/0.25 mL dose 05/21/2022 completed Severino Rodrigues MD [address] [place] [address],[address], [place], [address], [facility] 09/02/2023 14:24:21 influenza, unspecified formulation 05/24/2008 completed Severino Rodrigues MD [address] [place] [address],[address] [place] [address], [address], [facility] 09/02/2023 14:24:21 Tdap 10/03/2005 completed Severino Rodrigues MD [address] [place] [address],[address] [place] [address], [address], [facility] 09/02/2023 14:24:21 Tdap 05/13/2017 completed Severino Rodrigues MD [address] [place] [address],[address], [address], [facility] 09/02/2023 14:24:21 Influenza, high-dose, trivalent, PF 08/08/2016 completed Severino Rodrigues MD [address] [place] [address],[address] [place] [address], [address], [facility] 09/02/2023 14:24:21 Influenza, high-dose, trivalent, PF 06/14/2014 completed Severino Rodrigues MD [address] [place] [address],[address], [address], [facility] 09/02/2023 14:24:21 pneumococcal polysaccharide PPV23 04/14/2018 completed Severino Rodrigues MD [address] [place] [address],[address], [address], [facility] 10/15/2022 14:42:46 Pneumococcal conjugate PCV 13 05/02/2015 completed Severino Rodrigues MD [address] [place] [address], [address], [facility] 10/15/2022 14:42:46 Past Encounters Encounter ID Performer Location Encounter Start Date Encounter Closed Date Diagnosis/Indication Diagnosis SNOMED-CT Code [id number] MD BAILEE Lee_Dilma [address] [place] [address] 05/02/2022 16:02:47 05/07/2022 10:01:50 Carcinoma of prostate 154153001 Lower urin maria de jesus tract symptoms due to benign prostatic hypertrophy 80444576235122 Increased frequency of urination 367701904 [id number] MD Monico Lee [address] [place] [address] 07/23/2022 11:22:14 07/27/2022 09:43:06 Carcinoma of prostate 561062738 Lower urin maria de jesus tract symptoms due to benign prostatic hypertrophy 99333965717962 Increased frequency of urination 254934281 [id number] MD BAILEE Lee_Edingavin [address] [place] [address] 10/15/2022 14:28:15 10/19/2022 12:05:16 Carcinoma of prostate 438813035 Lower urin maria de jesus tract symptoms due to benign prostatic hypertrophy 24671172191518 Increased frequency of urination 656036706 Urethral stricture 66942 002 Leonidas hematuria 79266128 5 [id number] MD BAILEE Lee_Dilma [address] [place] [address] 11/28/2022 10:16:48 11/30/2022 11:21:06 Carcinoma of prostate 437941350 Lower urin maria de jesus tract symptoms due to benign prostatic hypertrophy 59996597153073 Leonidas hematuria 41145774 5 Increased frequency of urination 828811907 Urethral stricture 93170 002 [id number] MD BAILEE Lee_Dilma [address] [place] [address] 01/23/2023 11:17:58 01/31/2023 09:40:24 Urethral stricture 09185834 Carcinoma of prostate 25 1089142 Lower urin maria de jesus tract symptoms due to benign prostatic hypertrophy 57468826549422 Increased frequency of urination 736839480 Leonidas hematuria 88615412 5 [id number] MD BAILEE Lee_Dilma [address] [place] [address] 09/02/2023 14:10:29 09/03/2023 11:47:06 Carcinoma of prostate 592388994 Urethral stricture 25205 002 Lower urin maria de jesus tract symptoms due to benign prostatic hypertrophy 88619753134089 Increased frequency of urination 360167473 Leonidas hematuria 49446461 5 Hydronephrosis 71124907 [id number] MD Monico Lee [address] [place] [address] 11/04/2023 13:47:57 11/05/2023 10:03:04 Carcinoma of prostate 152031320 Hydronephrosis 61083107 Urethral stricture 42877 002 Lower urin maria de jesus tract symptoms due to benign prostatic hypertrophy 91784431369752 Increased frequency of urination 290369847 Leonidas hematuria 97577836 5 Health Concerns Section Related Observation LastModified by Organization Detai ls LastModified Time None Recorded Concern Status LastModified by Organization Details LastModified Time None Recorded Advance Directives Directive None Recorded Payers Encounter Date Sequence Insurance Name Policy Number Policy Simon Covered Member ID Simon Member ID Guarantor Name 10/15/2022 1 [place] [id number] Solis Thibodeaux [id number] Solis Galoman 11/28/2022 1 [place] [id number] Solis Thibodeaux [id number] Solis Ann Thibodeaux 01/23/2023 1 [place] [id number] Solis Thibodeaux [id number] Solis Ann Thibodeaux 09/02/2023 1 [place] [id number] Solis Thibodeaux [id number] Solis Galoman 11/04/2023 1 [place] [id number] Solis Galoman [id number] Solis Ann [place] Notes Date Note Type Note Provider Name and Address Organization Details Recorded Time 10/15/2022 text/html HPI Notes: 77 yo male [...] 14 (08/21/18) PSMA PET scan (11/30/2021) at [facility] - enhancing lesion in the prostate [...] cm) cyst (lower pole) Severino Rodrigues MD [address] [place] [address],[address], [place], [address], [facility] 10/15/2022 22:54:50 11/28/2022 text/html HPI Notes: [...] 14 (08/21/18) PSMA PET scan (11/30/2021) at [facility] - enhancing lesion in the prostate [...] cyst (lower pole) Severino Rodrigues MD [address] [facility],[address], [place], [address], [facility] 11/28/2022 10:50:54 01/23/2023 text/html HPI Notes: [...] 14 (08/21/18) PSMA PET scan (11/30/2021) at [facility] - enhancing lesion in the prostate [...] lymph nodes seen Severino Rodrigues MD [address] [facility],[address], [place], [address], [place] [facility] 01/27/2023 19:22:51 09/02/2023 text/html HPI Notes: 77 yo male dx with prostate cancer (T1c - Tenafly 3+4 = 7 - bilateral) on 11/28/10 [...] of prostate (02/01/23) Pathology - Left - Rosa Maria 5+5=10 - 6/6 cores (40%) - + perineural invasion - Right - Rosa Maria 4+5=9 - 6/6 cores (20%) - + [...] 14 (08/21/18) PSMA PET scan (11/30/2021) at [facility] - enhancing lesion in the prostate gland [...] lymph nodes seen Severino Rodrigues MD [address] [facility],[address], [place], [address], [facility] 09/02/2023 19:32:47 11/04/2023 text/html HPI Notes: [...] of prostate (02/01/23) Pathology - Left - Rosa Maria 5+5=10 - 6/6 cores (40%) - + perineural invasion - Right - Tenafly 4+5=9 - 6/6 cores (20%) - + [...] 14 (08/21/18) PSMA PET scan (11/30/2021) at [facility] - enhancing lesion in the prostate [...] active lymph nodes seen Severino Rodrigues MD [address] [facility],[address], [place], [address], [place] [facility] 11/04/2023 22:17:07
--- OUTSIDE RECORDS SUMMARY | 2024-02-10 17:36 | XMS_ITS | Encounter Summary ---
Author Organization [facility] Address [address] [place] [address] Care Team Providers Care Front Counter Attendant Name Role Phone Elsewhere, Pcp Primary Care Provider Unavailabl e Reason for Referral * MRI/CAT/PET Scan (Routine) - Closed Specialty Diagnoses / Procedures Referred By Contac t Referred To Contact Diagnoses Primary Malignant Neoplasm Of Prostate (HCC) Procedures PET CT Skull to Thigh PSMA Marilin Kaiser M.D. [address] [place] [address] [facility] Region Referral ID Status Reason Start Date Expiration Date Visits Re quested Visits Authorized [id number] Closed 12/18/2023 12/17/2024 1 1 Encounter Details Date Type Department Care Team (Late st Contact Info) Description 12/18/2023 Orders Only Department of Oncology in [place], [place] [address] [place] [phone] Marilin Kaiser M.D. [address] [place] [phone] Primary Malignant Neoplasm Of Prostate (HCC) (Primary [...] How often do you attend chur or sikhism services? Never 12/21/2021 Do you belong to any clubs o r organizations such as jainism groups, unions, fraternal or athletic groups, or [...] and heating? Not hard at all 01/24/2023 [facility] - Occupational [...] your living situation today? [facility] 01/24/2023 Education Answer Date Recorded What is the highest level of school you have completed or the highest degree you have received? 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 [address] [place] [address] 03/04/2024 1:30 PM CDT Appointment Department of Radiology in [address] [address] Marilin Kaiser M.D. [address] [place] [address] 03/05/2024 9:15 AM CDT Appointment Department of Radiology in [address] [address] Marilin Kaiser M.D. [address] [place] [address] 04/15/2024 1:15 PM CDT Appointment Department of Radiology in [address] [address] Marilin Kaiser M.D. [address] [place] [phone] 04/15/2024 1:30 PM CDT Appointment Department of Radiology in [address] [address] Marilin Kaiser M.D. [address] [place] [address] 04/16/2024 9:15 AM CDT Appointment Department of Radiology in [address] [address] Marilin Kaiser M.D. [address] [place] [address] 05/27/2024 12:45 PM CDT Appointment Department of Radiology in [address] [address] Marilin Kaiser M.D. [address] [place] [address] 05/27/2024 1:00 PM CDT Appointment Department of Radiology in [address] [address] Marilin Kaiser M.D. [address] [place] [address] 05/28/2024 9:15 AM CDT Appointment Department of Radiology in [address] [address] Marilin Kaiser M.D. 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 [address] [place] [address] 07/08/2024 1:30 PM ASSEMBLY PRESS OPERATOR Appointment Department of Radiology in [address] [address] Marilin Kaiser M.D. [address] [place] [address] 07/09/2024 9:45 AM ASSEMBLY PRESS OPERATOR Appointment Department of Radiology in [place], [place] [address] [place] [address] Marilin Kaiser M.D. [address] [place] [address] 08/19/2024 12:45 PM ASSEMBLY PRESS OPERATOR Appointment Department of Radiology in [address] [address] Marilin Kaiser M.D. [address] [place] [address] 08/19/2024 1:00 PM ASSEMBLY PRESS OPERATOR Appointment Department of Radiology in [address] [address] Marilin Kaiser M.D. [address] [place] [address] 08/20/2024 9:45 AM ASSEMBLY PRESS OPERATOR Appointment Department of Radiology in [address] [address] Marilin Kaiser M.D. [address] [place] [address] documented as of this encounter Results * [...] (HCC) documented in this encounter Care Teams Front Counter Attendant Relationship Specialty Start Date End Date Elsewhere, Pcp PCP - General Family Medicine 08/31/20 documented as of this encounter
--- OUTSIDE RECORDS SUMMARY | 2024-02-10 17:36 | XMS_ITS | Clinical Summary ---
Author Organization [facility] Address [place], [place] [address] Care Team Providers Care Quality Assurance Practice Manager Name Role Phone Rivas Torres MD Primary Care Provider +1- [phone] Allergies Active Allergy Reactions Criticality Noted Date [...] Department Care Team Description 12/26/2023 Orders Only [facility] Scanner 1 scan: (1-Ord) MR ARIELLE LUMBAR SPINE WO/W CON, 12/26/2023 12/11/2023 10:00 AM CDT Orders Only [facility] [address] [place] [address] [place] Outside Order (Severino Rodrigues) 12/11/2023 Travel 12/10/2023 Nurse Triage [facility] [address] [place] [address] Rivas Torres MD Error-please disregard (opened in error) 12/10/2023 Orders Only [facility] [address] [place] [address] Rivas Torres MD Outside Order (Ordered by Severino Rodrigues ) from Last 3 Months Immunizations Name Administration Dates Next Due COVID-19 vaccine (Aneumed-Bio NTech 30mcg/0.3mL) 12YO+ MARIA C-SUCROSE PF, MDV 10/30/2021 COVID-19 vaccine (Pfizer-Bio NTech 30mcg/0.3mL) PF, MDV 05/24/2021,09/21/2020,08/31/2020 Influenza, High-dose Inactivated 08/08/2016,06/05 Influenza, High-dose [...] Comments Blood Pressure 155/89 10/03/2023 4:32 PM MAILER Pulse 89 10/03/2023 4:32 PM MAILER Temperature 36.2 ??C (97.2 ??F) 10/03/2023 4:32 PM CS T Respiratory Rate 16 10/03/2023 4:32 PM MAILER Oxygen Saturation 98% 10/03/2023 4:32 PM MAILER Inhaled Oxygen Concentration - - Weight 90.4 kg (199 lb 4.8 oz) 10/03/2023 1:00 P M MAILER Height 185.4 cm (6' 1) 10/03/2023 1:00 PM MAILER Body Mass Index 26.29 10/03/2023 1:00 PM MAILER Plan of Treatment Upcoming Encounters Date Type Department Care Team (Latest Contact Info) Description 06/11/2024 7:15 AM MAILER Hospital Encounter [facility] [address] [place] [address] Severino Rodrigues MD [address] [place] [address] 06/11/2024 7:15 AM MAILER - 06/11/2024 8:[address] [facility] [address] [place] [address] Severino Rodrigues MD [address] [place] [address] cystoscopy, left ureteral stent exchange Scheduled Procedures Name Priority Associated Diagnoses Date/Ti me CYSTOSCOPY EXCHANGE URETERAL STENT Elective N13.30 Unspecified hydronephrosis 06/11/2024 7:15 AM MAILER Health Maintenance Due Date Last Done Comments COVID-19 vaccine series ( season) 2023 05/22/2023, 05/21/2022, 10/30/2021, Additional [...] Additional history exists Tetanus booster 05/13/2027 05/13/2017, 0308/2005, 09/17/1995 Tdap Completed 05/13/2017, 10/03/2005 Pneumococcal series for age 65+ Completed 8, 05/02/2015 Hepatitis C screening for ag e 18-79 Completed 05/19/2018 Zoster (shingles) series for age 50+ Completed 03/08/2021, 01/04/2021 Medical Devices Implanted Type Area Dispatcher Ship Pilot Device Identifier Shelf Expiration Date Model / Serial / Lot Stent Uret [id number] Percuflex Hydroplus - [id number] Implanted:Qty: 1 on 02/01/2023 by Severino Rodrigues MD at [facility] Left: Ureter [facility] 03/07/2025 [id number] / / [id number] Stent Uret [id number] Percuflex Hydroplus - [id number] Implanted:Qty: 1 on 10/03/2023 by Severino Rodrigues MD at [facility] Left: Ureter [facility] 03/29/2026 [id number] / / [id number] Procedures Procedure Name Priority Date/Time Associated Diagnosis Comments SCAN-MRI INTERPRETATION 12/26/19 12:00 AM CDT URINE CULTURE Routine 12/11/2023 8:03 AM CDT Hematuria syndrome ANTI HCV Routine 05/19/2018 7:38 AM CDT Need for hepatitis C screening test from Last 3 Months or Most Recently Relevant to Health Maintenance Results * SCAN-MRI INTERPRETATION (12/26/2023 12:00 AM CDT) Anatomical Region Laterality Modality Other Scanner OTHER * URINE CULTURE (12/11/2023 8:03 AM CDT) Pathologist [facility] CULTURE No growth (<1,000 CFU/mL) 12/12/2023 11:32 AM CDT [facility] Urine URINE SPECIMEN / Unknown Non-Blood / Unknown 12/11/2023 8:03 AM CDT 12/11/2023 8:03 AM CDT Rivas Torres MD MICROBIOLOGY [facility] [address] [place] [address], * ANTI HCV [24364.2] (05/19/2018 7:38 AM CDT) HEPATITIS C ANTIBODY Non-React rafia Non-React rafia 05/19/2018 3:00 PM CDT [facility] Comment:Antibodies to HCV no t detected; does not exclude the possibility of exposure to HCV. Blood BLOOD SPECIMEN / Unknown Venipuncture / Unknown 05/19/2018 7:38 AM CDT 05/19/2018 7:39 AM CDT Rivas Torres MD SEND OUTS [facility] [address] [place] [address], from Last 3 Months or Most Recently [...] Code Status Discussion: Not Discussed Care Teams Quality Assurance Practice Manager Relationship Specialty Start Date End Date [place]ivas [place] [address] PCP - General 01/09/06
--- OUTSIDE RECORDS SUMMARY | 2024-02-10 17:36 | XMS_ITS | Referral Summary ---
Author Organization [facility] Address [address] [place] [address] Care Team Providers Care De Ionizer Operator Name Role Phone Rivas Torres MD Primary Care Provider +1- [phone] Allergies Active Allergy Reactions Criticality Noted Date [...] 3 days 10/22/2022 Active Cholecalciferol 250 MCG (50923 UT) CAPS 01/17/2022 Active lisinopril (ZESTRIL) 20 [...] of Treatment Not on file Care Teams De Ionizer Operator Relationship Specialty Start Date End Date Rivas Torres MD PCP - General Family Practice 04/27/19
--- OUTSIDE RECORDS SUMMARY | 2024-02-10 17:36 | XMS_ITS | Clinical Summary ---
Author Organization [facility] Address [address] [place] [address] Care Team Providers Care Tearer Press Clipping Name Role Phone Rivas Torres MD Primary Care Provider +1- [phone] Allergies Active Allergy Reactions Criticality Noted Date [...] 3 days 10/22/2022 Active Cholecalciferol 250 MCG (18095 UT) CAPS 01/17/2022 Active lisinopril (ZESTRIL) 20 [...] (once per calendar year) 2023 INFLUENZA VACCINE (#1) 2024 2, 05/24/2021, 05/11/2020, Additional history exists DTAP/TDAP/TD IMMUNIZATION [...] age to complete this topic Care Teams Tearer Press Clipping Relationship Specialty Start Date End Date Rivas Torres MD PCP - General Family Practice 04/27/19
[2024-02-10 17:40] VITALS: BP 126/82; PULSE 85; RESP 16; TEMP 36.5; O2SAT 97; BMI 23.8
[2024-02-10 19:00] VITALS: BP 94/68; PULSE 81; RESP 16; O2SAT 97
[2024-02-10] MEDS: bisacodyL 5 MG TABLET DR PO (19:27)
[2024-02-10] MEDS: OxyCODONE/APAP 5-325 TABLET 1 TAB PO (19:27)
[2024-02-10] MEDS: CALCIUM GLUC 1,000MG/50 ML 1,000 MG/50 ML BAG 100 MG IVPB (19:32)
--- NOTE | 2024-02-10 20:39 | P.IMHP_ITS ---
Hospitalist- H&P: HPI History of Present Illness Date Seen: 02/10/24 Chief complaint: Observation Narrative: Solis Thibodeaux is a 78 year old male with advanced metastatic prostate cancer admitted from the [facility] for 2-3 weeks of progressive fatigue, weakness, loss of appetite. In the clinic he was found to have hypocalcemia. He is admitted for evaluation of these symptoms and hypocalcemia. He reports no symptoms acute illness, cold, cough, sore throat, shortness of breath, chest pain, abdominal pain, nausea, vomiting, diarrhea. He does have a tendency towards constipation from Percocet. He reports no urinary problems. No rash. He does have pain for metastatic disease in his taking about 1 Percocet 3 times a day for pain. He has longstanding history of evaluation and treatment of prostate cancer diagnosed in 2010. At that time he had [place] 7. Treated with radical radiation therapy. No surgery Treated with intermittent hormonal therapy. In 2018 had cryotherapy. Monitoring of PSA showed 4.85 around the time of diagnosis in 2010 and subsequ ently has been less than 1 until 2021. PET scan in November 2021 showed locally advanced prostate cancer involving inguinal lymph nodes and supra-acetabular osseous metastases. December of 2021 treated with Xtandi. January of 2023 PSMA PET scan showed metastatic prostate cancer and possibly obstructed left kidney. New metastatic lesions. Xtandi discontinued. February 2023 started Xgeva with Taxotere June 2023 PET-CT showed improvement with decrease in uptake of osseous lesions. September to December of 2023 treated with darolutamide. PSA continued to increase. Most recently 125 on Jan 03 2020 for January 22 2024 1st treatment of PYLARIFY F-18, radiopharmaceutical. Also being treated with Lupron. He has been told that current treatment is likely the last option for management of his widely metastatic prostate cancer. Has not had formal consultation with palliative care. 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 - Acquired stenosis of unspecified nasolacrimal duct (ICD-10) Rash in adult ?R21 - Rash and other nonspecific skin eruption (ICD-10) Hypokalemia ?E87.6 - Hypokalemia (ICD-10) Hypocalcemia ?E83.51 - Hypocalcemia (ICD-10) Osseous metastasis ?C79.51 - Secondary malignant neoplasm of bone (ICD-10) Androgen deprivation therapy ?Z79.818 - clinical document improvement educator (current) use of other agents affecting estrogen receptors and estrogen levels (ICD-10) S/P radiation therapy ?Z92.3 - Personal history of irradiation (ICD-10) Health care directive on file ?Z78.9 - Other specified health status (ICD-10) Adenocarcinoma of prostate ?C61 - Malignant neoplasm of prostate (ICD-10) Social History (Updated 02/10/24 @ 20:59 by Fredis Vaughan MD) Narrative: He lives in [place]. He is . His closest contact, primary support and healthcare power of assistant prosecuting attorney is Paulette Dumontburn, his ex- and current friend. Nonsmoker. Former moderate alcohol consumption but none for several months. What is your current living situation?: I presently have a place to live Problems where you live: no known problems Problems where you live details: n/a In the past 12 months, utilities in danger of being shut off: no In past 12 months, lack of transportation kept you from medical appts, meetings, work, or getting things needed for daily living: no In the past 12 mos, have been you worried that your food would run out before you had money to buy more?: never true In the past 12 mos, the food you bought just didn't last and you didn't have money to buy more?: never true Highest level of school completed/degree received: Master's degree Smoking Status: Never smoker Do you use any of these nicotine containing products: None How often do you have a drink containing alcohol: never AUDIT-C Alcohol total score: 0 Non-prescribed substance use: denies use Caffeine: Yes How often does anyone, including family, friends and others, physically hurt you : never How often does anyone, including family, friends and others, insult or talk down to you: never How often does anyone, including family, friends and others, threaten you with harm: never How often does anyone, including family, friends and others, scream or curse at you: never service: No Meds Home Medications and Allergies Home Medications ?Medication ?Instructions ?Recorded ?Confirmed ?Type rosuvastatin 5 mg tablet 5 mg PO QDAY 03/28/22 02/10/24 History tamsulosin 0.4 mg capsule 0.8 mg PO QDAY 03/28/22 02/10/24 History cyanocobalamin (vitamin B-12) 500 mcg PO Q3D 01/31/23 02/10/24 History 1,000 mcg capsule leuprolide acetate (6 month) 45 mg 45 mg IM [id number] 01/31/23 02/10/24 History intramuscular syringe kit (Lupron Depot) lisinopril 20 mg tablet 10 mg PO QDAY 04/01/23 02/10/24 History potassium chloride 20 mEq 40 meq PO BID 10/21/23 02/10/24 History tablet,extended release ibuprofen 200 mg tablet (Advil) 400 mg PO Q8H 12/18/23 02/10/24 History naproxen sodium 220 mg capsule 220 mg PO BID PRN 12/18/23 02/10/24 History (Aleve) Allergies Allergy/AdvReac Type Severity Reaction Status Date / Time allopurinol Allergy Intermediate Verified 02/10/24 14:31 Exam Narrative: Exam Narrative: He is alert and appears in no distress. Speech is normal. Head is without trauma. Eyes normal. Oropharynx normal. Neck is supple without mass or adenopathy. Respirations are clear to auscultation. Cardiovascular: S1, S2, regular rate and rhythm. No murmur gallop or rub. Abdomen: Bowel sounds active. Abdomen is soft without tenderness or mass. Extremities without edema. Intact pedal pulses. He moves all 4 extremities well. He has mild ataxia with ambulation. Const: Vital Signs, click to edit/add: Vital Signs - 24 hr 02/10/24 17:40 Temperature 97.7 F Pulse Rate [Pulse Oximeter] 85 Respiratory Rate 16 Blood Pressure [Ri ght Arm] 126/82 Pulse Oximetry 97 Oxygen Delivery Me thod Room Air Documenting provider has reviewed patient's vital signs: yes Assessment and Plan Assessment and plan (1) Hypocalcemia: Problem comment: Clearly has hypocalcemia which is probably due to metastatic prostate cancer in his bones. On oral calcium and vitamin-D. PTH is appropriately high. Initiate IV calcium. He does not have specific symptoms such as tetany or EKG changes to establish that his symptoms are primarily due to hypocalcemia. Will continue to monitor or symptoms and calcium levels. Status: Acute (2) Anorexia: Problem comment: Acute on chronic. I suspect this is due to metastatic disease and/or current treatment with radiopharmaceuticals. Monitor nutritional status and oral intake Status: Acute (3) Fatigue: Problem comment: Acute on chronic. I suspect this is due to metastatic disease and/or treatment with radiopharmaceuticals. PT and OT to assess. Status: Acute (4) Adenocarcinoma of prostate: Problem comment: Widely metastatic. Progressive disease despite multiple modalities treatment over the past few years. Ongoing management at [facility] with radiopharmaceutical/piflufolastat F-18. Current plan is for 6 treatments given every 6 weeks. First treatment on January 21. Status: Acute (5) Palliative care encounter: Problem comment: Patient understands that he is nearing the end of options for effective treatment of his metastatic disease. He is not ready for hospice until all beneficial treatments are exhausted. Recommend discussion with palliative care. Status: Acute Plan Patient is admitted to the hospital for management of symptoms and specifically hypocalcemia. Had a long discussion that I was concerned that correcting his hypocalcemia would not resolve his fairly severe and disabling fatigue and ano rexia. Ongoing discussion with palliative Care and Oncology recommended to discuss treatment and goals of care Total Time Spent Total Time Spent: Total time spent today is 75 minutes, most that time in coordination care and discussing with patient, healthcare power of assistant prosecuting attorney and other providers ongoing evaluation management.
[2024-02-10] MEDS: CALCIUM CARBONATE 500 MG TABLET 1000 MG PO (21:03)
[2024-02-10] MEDS: ENOXAPARIN 40 MG/0.4 ML INJ SUBCUT (21:03)
[2024-02-10] MEDS: POTASSIUM CHLORIDE 10 MEQ CAPSULE ER 40 MEQ PO (21:03)
[2024-02-10] MEDS: SODIUM CHLORIDE 0.9 % (FLUSH) 10 ML SYRINGE 5 ML IVF (21:12)
[2024-02-10 22:35] LABS: Ionized Calcium* 0.92 mmol/L (1.11-1.30)
[2024-02-10 23:00] VITALS: PULSE 71
[2024-02-10 23:46] VITALS: BP 118/66; PULSE 70; RESP 16; TEMP 36.4; O2SAT 96
[2024-02-11 03:00] VITALS: BP 126/69; PULSE 75; RESP 22; TEMP 36.5; O2SAT 95
[2024-02-11] MEDS: CALCIUM GLUC 1,000MG/50 ML 1,000 MG/50 ML BAG 100 MG IVPB (03:52)
--- NOTE | 2024-02-11 06:59 | PC.NURSE ---
Pt is alert and oriented x3. Afebrile. Pt reports 3-4/10 pain in lower back, pain medications offered pt refused stating I am fine right now, I will let you know if I need them. Pt is up ind in room, voiding, tolerating regular diet and slept intermittently throughout night. ?
[2024-02-11 07:00] VITALS: BP 113/63; PULSE 87; RESP 16; TEMP 36.7; O2SAT 99
[2024-02-11 07:06] LABS: Eosinophils Absolute Auto 0.01 K/uL (0.00-0.50); Eosinophils Percent Auto 0.2 % (0.0-7.0); Hematocrit 26.4 % (37.0-53.0); Immature Granulocytes Abs Auto 0.47 K/uL (0.00-0.30); Immature Granulocytes Pct Auto 8.8 %; Lymphocytes Percent Auto 7.1 % (20-44); Mean Corpuscular HGB Conc 30 gm/dL (32-36); Mean Corpuscular Hemoglobin 25 pg (26-34); Mean Corpuscular Volume 83 fL (80-100); Monocytes Percent Auto 7.9 % (0.0-11.0); Platelet Count* 133 K/uL (140-440); RDW Coefficient of Variation % 17.6 % (11.5-15.5); Red Blood Count 3.17 m/uL (4.30-5.90); White Blood Count* 5.34 K/uL (4.50-11.00)
[2024-02-11 07:13] LABS: Chloride* 106 mmol/L (96-114)
[2024-02-11 07:14] LABS: Potassium* 4.9 mmol/L (3.6-5.1); Sodium* 136 mmol/L (135-149)
[2024-02-11 07:16] LABS: Creatinine* 0.5 mg/dL (0.5-1.5); Est. Creatinine Clearance* 69.91; Estimated Glomerular Filt Rate 106 ml/min
[2024-02-11 07:17] LABS: Anion Gap 6 mEq/L (7-15); Blood Urea Nitrogen* 20 mg/dL (7-30); Calcium* 7.2 mg/dL (8.4-10.6); Carbon Dioxide* 24 mmol/L (20-32); Glucose* 106 mg/dL (60-115)
[2024-02-11 07:48] VITALS: PULSE 83
[2024-02-11 08:04] LABS: Slide Review Reflex Yes
[2024-02-11 08:05] LABS: Slide Review Acceptable Review (Acceptable)
[2024-02-11] MEDS: OxyCODONE/APAP 5-325 TABLET 1 TAB PO (08:18)
[2024-02-11] MEDS: ROSUVASTATIN CALCIUM 10 MG TABLET 5 MG PO (08:41)
[2024-02-11] MEDS: TAMSULOSIN HCL 0.4 MG CAPSULE 0.8 MG PO (08:41)
[2024-02-11] MEDS: POTASSIUM CHLORIDE 10 MEQ CAPSULE ER 40 MEQ PO (08:41)
[2024-02-11] MEDS: lisinopriL 20 MG TABLET PO (08:42)
[2024-02-11] MEDS: CALCIUM CARBONATE 500 MG TABLET 1000 MG PO (08:42)
[2024-02-11] MEDS: SODIUM CHLORIDE 0.9 % (FLUSH) 10 ML SYRINGE 5 ML IVF (08:43)
[2024-02-11] MEDS: PSYLLIUM HUSK (WITH SUGAR) 12 GM PACKET PO (08:43)
[2024-02-11 09:20] LABS: Lab Add On Test New Spec Needed
[2024-02-11 09:28] VITALS: BMI 22.8
[2024-02-11 11:00] VITALS: BP 101/61; PULSE 83; RESP 16; TEMP 36.6; O2SAT 97
[2024-02-11 11:04] LABS: Ionized Calcium* 0.96 mmol/L (1.11-1.30)
--- NOTE | 2024-02-11 13:44 | PM.DS1 ---
DS: Providers Provider Time Seen by Provider: 11:25 Date Seen: 02/11/24 Date of admission: 02/10/24 17:29 Primary care physician: Rivas Torres MD Admitting Clinician: Fredis Vaguhan MD Attending Physician on discharge: Aracelis Pacheco MD Date of Discharge: 02/11/24 DS: Diagnosis Discharge Diagnosis (1) Palliative care encounter: Status: Acute Problem details: Patient understands that he is nearing the end of options for effective treatment of his metastatic disease. He is not ready for hospice until all beneficial treatments are exhausted. Recommend discussion with outpatient palliative care. (2) Fatigue: Status: Acute Problem details: Acute on chronic. I suspect this is due to metastatic disease and/or treatment with radiopharmaceuticals. PT and OT consulted. Improving, independent in room. (3) Anorexia: Status: Acute Problem details: Acute on chronic. I suspect this is due to metastatic disease and/or current treatment with radiopharmaceuticals. - Improving. Ensure TID (4) Hypocalcemia: Status: Acute Problem details: - Acute on chronic Clearly has hypocalcemia which is probably due to metastatic prostate cancer in his bones. On oral calcium and vitamin-D. PTH is appropriately high. Initiate IV calcium. He does not have specific symptoms such as tetany or EKG changes to establish that his symptoms are primarily due to hypocalcemia. - Improving. Weakness improving. Desires homegoing. Continue po vit D. Increase PO calcium. (5) Adenocarcinoma of prostate: Status: Chronic Problem details: Widely metastatic. Progressive disease despite multiple modalities treatment over the past few years. Ongoing management at [facility] with radiopharmaceutical/piflufolastat F-18. Current plan is for 6 treatments given every 6 weeks. First treatment on January 21. (6) Osseous metastasis: Status: Chronic DS: Summary Hospital Course Hospital Course: This is a 78-year-old male with advanced metastatic prostate cancer to bone who was admitted through the [facility] for concern of progressive fatigue, weakness, loss of appetite for the last 2-3 weeks. In the clinic he was also found to be hypocalcemic. He has had various treatments for prostate cancer including Lupron, recent bisphosphonate monthly and darolutamide from September to December of this year. From December to January he started PYLARIFY F-18. He has not yet had a formal consultation with palliative care. He has been told that the current treatment is the last option for his management of widely metastatic prostate cancer. PTH is appropriately high. Vitamin-D level was low normal at 38. He was admitted for observation. He was given IV calcium, oral calcium and vitamin-D. An EKG was done and he was placed on telemetry. This morning he ate well; he notes this is the best he has eaten in a while. He felt much better, less weak. I spoke with Abigail from the [facility] today to coordinate transitioning back to outpatient care. She told me that she would contact him and do labs either or Saturday this week. She will also talk with Dr. Kaiser about whether not to discontinue the bisphosphonate. Time Spent with Patient Time attestation: Total time spent providing and/or coordinating discharge services: Exam Narrative: Exam Narrative: General: No acute distress. Awake, alert, oriented x3. No pallor. No jaundice. Oropharynx: Clear. Mucous membranes moist. Cardiovascular: Regular rate and rhythm. No murmurs, gallops, or rubs. Respiratory: Clear to auscultation bilaterally. No wheezes or crackles. Abdomen: Bowel sounds present. Soft, nondistended, nontender. Extremities: No pedal edema. Const: Vital Signs, click to edit/add: Vital Signs - 24 hr 02/10/24 17:40 02/10/24 19:00 02/10/24 23:00 Temperature 97.7 F Pulse Rate 71 Pulse Rate [Pulse Oximeter] 85 81 Respiratory Rate 16 16 Blood Pressure [Ri ght Arm] 126/82 94/68 Pulse Oximetry 97 97 Oxygen Delivery Me thod Room Air Room Air 02/10/24 23:46 02/11/24 03:00 02/11/24 07:00 Temperature 97.6 F 97.7 F 98.1 F Pulse Rate Pulse Rate [Pulse Oximeter] 70 75 87 Respiratory Rate 16 22 16 Blood Pressure [Ri ght Arm] 118/66 126/69 113/63 Pulse Oximetry 96 95 99 Oxygen Delivery Me thod Room Air Room Air Room Air 02/11/24 07:48 02/11/24 11:00 Temperature 97.8 F Pulse Rate 83 Pulse Rate [Pulse Oximeter] 83 Respiratory Rate 16 Blood Pressure [Ri ght Arm] 101/61 Pulse Oximetry 97 Oxygen Delivery Me thod Room Air DS: Data Data Completed and Pending Labs on day of discharge: Labs from last 24 hours 02/11/24 02/11/24 02/11/24 10:58 09:07 06:02 WBC 5.34 RBC 3.17 L Hgb 8.0 L Hct 26.4 L MCV 83 MCH 25 L MCHC 30 L RDW Coeff of Mayco 17.6 H Plt Count 133 L Neut % (Auto) 76.0 H Lymph % (Auto) 7.1 L Angelina % (Auto) 7.9 Eos % (Auto) 0.2 Baso % (Auto) 0.0 Neut # (Auto) 4.10 Lymph # (Auto) 0.40 L Angelina # (Auto) 0.40 Eos # (Auto) 0.01 Baso # (Auto) 0.00 Abs Immat Gran (auto) 0.47 H Imm/Tot Granulo (auto) 8.8 Diff Slide Review Acceptable Review Sodium 136 Potassium 4.9 Chloride 106 Carbon Dioxide 24 Anion Gap 6 L BUN 20 Creatinine 0.5 Estimated Creat Clear 69.91 Estimated GFR 106 Glucose 106 Calcium 7.2 L Ionized Calcium Kb 0.96 L Lab Acknowledgement New Spec Needed 02/10/24 22:23 WBC RBC Hgb Hct MCV MCH MCHC RDW Coeff of Mayco Plt Count Neut % (Auto) Lymph % (Auto) Angelina % (Auto) Eos % (Auto) Baso % (Auto) Neut # (Auto) Lymph # (Auto) Angelina # (Auto) Eos # (Auto) Baso # (Auto) Abs Immat Gran (auto) Imm/Tot Granulo (auto) Diff Slide Review Sodium Potassium Chloride Carbon Dioxide Anion Gap BUN Creatinine Estimated Creat Clear Estimated GFR Glucose Calcium Ionized Calcium Kb 0.92 L Lab Acknowledgement Discharge Plan Discharge Disposition: Home, Self-Care Date of Admission: 02/10/24 17:29 Attending Provider on Discharge: Aracelis Pacheco Primary Care Provider: Rivas Torres Condition: Improved Anticipated Discharge Date/Time: 02/11/24 14:05 Discharge Medications: New cholecalciferol (vitamin D3) [Vitamin D3] 50 mcg (2,000 unit) capsule 50 mcg PO DAILY Qty: 30 0RF calcium carbonate 500 mg calcium (1,250 mg) tablet 1,000 mg PO QID Qty: 360 0RF Continued ibuprofen [Advil] 200 mg tablet 400 mg PO Q8H naproxen sodium [Aleve] 220 mg capsule 220 mg PO BID PRN rosuvastatin 5 mg tablet 5 mg PO DAILY tamsulosin 0.4 mg capsule 0.8 mg PO DAILY lisinopril 20 mg tablet 10 mg PO BID Patient Comments: potassium chloride 20 mEq tablet extended release 40 meq PO BID cyanocobalamin (vitamin B-12) 1,000 mcg capsule 500 mcg PO Q3D Lupron Depot (6 Month) 45 mg syringe kit 45 mg IM [id number] oxycodone-acetaminophen [Percocet] 5-325 mg tablet 1 tab PO Q6H PRN (Reason: pain) Qty: 60 0RF Discontinued calcium carbonate [Calcium 600] 600 mg calcium (1,500 mg) tablet 1,200 mg PO BID Qty: 90 0RF Discharge Orders: Discharge Order (Routine); Ordered 02/11/24 Ordered By: Aracelis Pacheco Patient Education: Calcium Supplement (By mouth) (Antacid, Dao-Citrate, Calcarb 600,..., Cholecalciferol (By mouth), Hypocalcemia (DC) Additional Instructions: Oncology will call to set up labs on or . Activity Level: No Restrictions Discharge Diet: Regular Diet Detail: Ensure TID Follow Up Appointments: Rivas Torres MD [Primary Care Provider] - Forms: [employer] Info Instructions
== END 2024-02-11 15:04 | disposition home or self-care (01) ==
PROVIDERS: Family Medicine; Admitting Provider Family Medicine; PCP Family Medicine; Visit Provider Family Medicine
DX: E83.51 Hypocalcemia (principal); R53.1 Weakness; R63.8 Other symptoms and signs concerning food and fluid intake; C61 Malignant neoplasm of prostate; C79.51 Secondary malignant neoplasm of bone; Z51.5 Encounter for palliative care; R53.83 Other fatigue; R63.0 Anorexia; Z78.9 Other specified health status; R33.8 Other retention of urine; Z92.3 Personal history of irradiation; I10 Essential (primary) hypertension; Z11.52 Encounter for screening for COVID-19
CPT/HCPCS: 36415; 36430; 36591; 80048; 80053; 82306; 82310; 82330; 83735; 83970; 84100; 85025; 86850; 86900; 86901; 86922; 87635; 96365; 96366; 96372; G0378; G0463; A9270; G0379; J0613; J1642; J1650; P9016

== ENCOUNTER 2024-02-16 13:54 | Emergency (ER) | payer MEDICARE, BC, SELFPAY ==
[2024-02-16 14:25] VITALS: BP 130/76; PULSE 103; RESP 16; TEMP 36.1; O2SAT 97
--- OUTSIDE RECORDS SUMMARY | 2024-02-16 14:52 | XMS_ITS | Encounter Summary ---
Author Organization [facility] Address [address] [place] [address] Care Team Providers Care Offshoring Manager Name Role Phone Elsewhere, Pcp Primary Care Provider Unavailabl e Reason for Referral * Outpatient (Routine) - Authorized Specialty Diagnoses / Procedures Referred By Contac t Referred To Contact Diagnoses Primary Malignant Neoplasm Of Prostate (HCC) Procedures NM Therapy Iris-177 PSMA Marilin Kaiser M.D. [address] [place] [address] [facility] Referral ID Status Reason Start Date Expiration Date V isits Requested Visits Authorized [id number] Authorized 12/27/2023 12/26/2024 8 8 Reason for Visit * Outpatient (Routine) - Authorized Specialty Diagnoses / Procedures Referred By Javon lopez Referred To Contact Diagnoses Primary Malignant Neoplasm Of Prostate (HCC) Procedures NM Therapy Iris-177 PSMA Marilin Kaiser M.D. [address] [place] [address] [facility] Referral ID Status Reason Start Date Expiration Date V isits Requested Visits Authorized [id number] Authorized 12/27/2023 12/26/2024 8 8 Encounter Details Date Type Department Care Team (Latest Contact Info) Description 01/22/2024 11:46 AM CDT - 01/22/2024 11:59 PM CDT Hospital Encounter Department of Radiology in [place], [place] [address] [place] [address] Marilin Kaiser M.D. [address] [place] [phone] Primary Malignant Neoplasm Of Prostate (HCC) Discharge [...] How often do you attend chur or restorationism services? Never 12/21/2021 Do you belong to [...] and heating? Not hard at all 01/24/2023 [facility] - Occupational Stress Questionnaire Answer Date Recorded [...] your living situation today? I have a [facility] place to live 01/24/2023 Education Answer Date Recorded What is the highest level of school you have completed or the highest degree you have received? Master's degree (e.g., MA, MS, Gail, MEd, GEOLOGY INSTRUCTOR, JAMIE) 12/21/2021 Sex and Gender Information [...] Take 20 mg by mouth daily. 11/06/2021 ondansetron ODT (Zofran-ODT) 8 mg disintegrating tabletIndications:Primary Malignant Neoplasm Of Prostate (HCC) Dissolve 1 tablet (8 mg total) in the mouth every 8 (eight) hours as needed for nausea or vomiting. 20 tablet 01/22/2024 rosuvastatin (CRESTOR) 5 mg tablet Take 5 mg by mouth at bedtime. 11/06/2021 tamsulosin (FLOMAX) 0.4 mg 24 hr capsule TAKE TWO CAPSULES BY MOUTH ONCE DAILY AFTER A MEAL 11/06/2021 documented as of this encounter Nursing Notes [...] PM CDT Appointment Department of Radiology in [address] [address] Marilin Kaiser M.D. [address] [place] [address] 03/04/2024 1:30 PM CDT Appointment Department of Radiology in [address] [address] Marilin Kaiser M.D. [address] [place] [address] 03/05/2024 9:15 AM CDT Appointment Department of Radiology in [address] [address] Marilin Kaiser M.D. [address] [place] [address] 04/15/2024 1:15 PM CDT Appointment Department of Radiology in [address] [address] Marilin Kaiser M.D. [address] [place] [address] 04/15/2024 1:30 PM CDT Appointment Department of Radiology in [address] [address] Marilin Kaiser M.D. [address] [place] [address] 04/16/2024 9:15 AM CDT Appointment Department of Radiology in [place], [place] [address] [place] [address] Marilin Kaiser M.D. [address] [place] [address] 05/27/2024 12:45 PM CDT Appointment Department of Radiology in [address] [address] Marilin Kaiser M.D. [address] [place] [address] 05/27/2024 1:00 PM CDT Appointment Department of Radiology in [address] [address] Marilin Kaiser M.D. [address] [place] [address] 05/28/2024 9:15 AM CDT Appointment Department of Radiology in [address] [address] Marilin Kaiser M.D. [address] [place] [address] 07/08/2024 1:15 PM HIDE SPLITTER Appointment Department of Radiology in [address] [address] Marilin Kaiser M.D. [address] [place] [address] 07/08/2024 1:30 PM HIDE SPLITTER Appointment Department of Radiology in [address] [address] Marilin Kaiser M.D. [address] [place] [address] 07/09/2024 9:45 AM HIDE SPLITTER Appointment Department of Radiology in [place] [address] [place] [address] Marilin Kaiser M.D. [address] [place] [address] 08/19/2024 12:45 PM HIDE SPLITTER Appointment Department of Radiology in [address] [address] Marilin Kaiser M.D. [address] [place] [address] 08/19/2024 1:00 PM HIDE SPLITTER Appointment Department of Radiology in [address] [address] Marilin Kaiser M.D. [address] [place] [address] 08/20/2024 9:45 AM HIDE SPLITTER Appointment Department of Radiology in [address] [address] Marilin Kaiser M.D. [address] [place] [address] documented as of this encounter Procedures Procedure [...] mL/hr documented in this encounter Care Teams Offshoring Manager Relationship Specialty Start Date End Date Elsewhere, Pcp PCP - General Family Medicine 08/31/20 documented as of this encounter
--- OUTSIDE RECORDS SUMMARY | 2024-02-16 14:52 | XMS_ITS ---
Author Organization [facility] Address [address] [place] [address] Care Team Providers Care Firepot Operator And Tender Name Role Phone Elsewhere, Pcp Primary Care [...] than 10, Rosa Maria 7) - Unsigned Current Oncology Plans No current plan information found. Past Plans No past plan information found. Radiation Treatments * Plan Last Treated On Elapsed Days Fractions Treated Prescribed Fraction Dose Prescribed Total Dose [id number] 08/01/2023 8 1 of 1 2,000 cGy 2,000 cGy [id number] 07/31/2023 7 3 of 3 1,000 cGy 3,000 cG y [id number] 07/30/2023 6 3 of 3 1,000 cGy 3,000 cG y Reference Point Last Treated On Elapsed Days Session Dose Total Dose [id number] 08/01/2023 8 2,000 cGy 2,000 cGy [id number] HumR 07/31/2023 7 1,000 cGy 3,000 cGy [id number] HumL 07/30/2023 6 1,000 cGy 3,000 cGy
--- OUTSIDE RECORDS SUMMARY | 2024-02-16 14:52 | XMS_ITS | Encounter Summary ---
Author Organization [facility] Address [address] [place] [address] Care Team Providers Care Integration Director Name Role Phone Elsewhere, Pcp Primary Care Provider Unavailabl e Encounter Details Date Type Department Care Team (Late st Contact Info) Description 01/27/2024 Clinical Communication Department of Radiology, [facility], in [place], [place] [address] [place] [address] Elizabeth Barragan R.N. [address] [place] [address] Social History Tobacco Use Types Packs/Day Years [...] often do you attend chur ch or anglican services? Never 12/21/2021 Do you belong to [...] and heating? Not hard at all 01/24/2023 [facility] - Occupational Stress [...] your living situation today? I have a [facility] place to live 01/24/2023 Education Answer Date Recorded What is the highest level of school you have completed or the highest degree you have received? Master's degree (e.g., MA, MS, Gail, MEd, ALEMITE OPERATOR, JAMIE) 12/21/2021 Sex and Gender Information [...] CDT Appointment Department of Radiology in [address] [address] Marilin Kaiser M.D. [address] [place] [address] 03/04/2024 1:30 PM CDT Appointment Department of Radiology in [address] [address] Marilin Kaiser M.D. [address] [place] [address] 03/05/2024 9:15 AM CDT Appointment Department of Radiology in [address] [address] Marilin Kaiser M.D. [address] [place] [address] 04/15/2024 1:15 PM CDT Appointment Department of Radiology in [address] [address] Marilin Kaiser M.D. [address] [place] [address] 04/15/2024 1:30 PM CDT Appointment Department of Radiology in [address] [address] Marilin Kaiser M.D. [address] [place] [address] 04/16/2024 9:15 AM CDT Appointment Department of Radiology in [address] [address] Marilin Kaiser M.D. [address] [place] [address] 05/27/2024 12:45 PM CDT Appointment Department of Radiology in [place] [address] [place] [address] Marilin Kaiser M.D. [address] [place] [address] 05/27/2024 1:00 PM CDT Appointment Department of Radiology in [address] [address] Marilin Kaiser M.D. [address] [place] [address] 05/28/2024 9:15 AM CDT Appointment Department of Radiology in [address] [address] Marilin Kaiser M.D. [address] [place] [address] 07/08/2024 1:15 PM BEHAVIORAL INSTRUCTOR Appointment Department of Radiology in [address] [address] Marilin Kaiser M.D. [address] [place] [address] 07/08/2024 1:30 PM BEHAVIORAL INSTRUCTOR Appointment Department of Radiology in [address] [address] Marilin Kaiser M.D. [address] [place] [address] 07/09/2024 9:45 AM BEHAVIORAL INSTRUCTOR Appointment Department of Radiology in [place], [place] [address] [place] [address] Marilin Kaiser M.D. [address] [place] [address] 08/19/2024 12:45 PM BEHAVIORAL INSTRUCTOR Appointment Department of Radiology in [place], [place] [address] [place] [address] Marilin Kaiser M.D. [address] [place] [address] 08/19/2024 1:00 PM BEHAVIORAL INSTRUCTOR Appointment Department of Radiology in [place] [address] [place] [address] Marilin Kaiser M.D. [address] [place] [address] 08/20/2024 9:45 AM BEHAVIORAL INSTRUCTOR Appointment Department of Radiology in [place] [address] [place] [address] Marilin Kaiser M.D. [address] [place] [address] documented as of this encounter Visit Diagnoses Not on filedocumented in this encounter Care Teams Integration Director Relationship Specialty Start Date End Date Elsewhere, Pcp PCP - General Family Medicine 08/31/20 documented as of this encounter
--- OUTSIDE RECORDS SUMMARY | 2024-02-16 14:52 | XMS_ITS | Encounter Summary ---
Author Organization [facility] Address [address] [place] [address] Care Team Providers Care Box Covering Machine Operator Name Role Phone Elsewhere, Pcp Primary Care Provider Unavailabl e Encounter Details Date Type Department Care Team (Late st Contact Info) Description 01/02/2024 Clinical Communication Department of Radiology in [place], [place] [address] [place] [address] Peterson Rodas Social History Tobacco Use Types [...] any clubs o r organizations such as anglican groups, unions, fraternal or athletic groups, or [...] and heating? Not hard at all 01/24/2023 [facility] - Occupational [...] your living situation today? I have a [facility] place to live 01/24/2023 Education Answer Date Recorded What is the highest level of school you have completed or the highest degree you have received? Master's degree (e.g., MA, MS, Gail, MEd, TOBACCO PRIMER MACHINE OPERATOR, JAMIE) 12/21/2021 Sex and Gender Information [...] PM CDT Appointment Department of Radiology in [place], [place] [address] [place] [address] Marilin Kaiser M.D. [address] [place] [address] 03/04/2024 1:30 PM CDT Appointment Department of Radiology in [address] [address] Marilin Kaiser M.D. [address] [place] [address] 03/05/2024 9:15 AM CDT Appointment Department of Radiology in [address] [address] Marilin Kaiser M.D. [address] [place] [address] 04/15/2024 1:15 PM CDT Appointment Department of Radiology in [address] [address] Marilin Kaiser M.D. [address] [place] [address] 04/15/2024 1:30 PM CDT Appointment Department of Radiology in [address] [address] Marilin Kaiser M.D. [address] [place] [address] 04/16/2024 9:15 AM CDT Appointment Department of Radiology in [address] [address] Marilin Kaiser M.D. [address] [place] [address] 05/27/2024 12:45 PM CDT Appointment Department of Radiology in [address] [address] Marilin Kaiser M.D. [address] [place] [address] 05/27/2024 1:00 PM CDT Appointment Department of Radiology in [address] [address] Marilin Kaiser M.D. [address] [place] [address] 05/28/2024 9:15 AM CDT Appointment Department of Radiology in [address] [address] Marilin Kaiser M.D. [address] [place] [address] 07/08/2024 1:15 PM SIDE LASTER Appointment Department of Radiology in [address] [address] Marilin Kaiser M.D. [address] [place] [address] 07/08/2024 1:30 PM SIDE LASTER Appointment Department of Radiology in [address] [address] Marilin Kaiser M.D. [address] [place] [address] 07/09/2024 9:45 AM SIDE LASTER Appointment Department of Radiology in [address] [address] Marilin Kaiser M.D. [address] [place] [address] 08/19/2024 12:45 PM SIDE LASTER Appointment Department of Radiology in [place], [place] [address] [place] [address] Marilin Kaiser M.D. [address] [place] [address] 08/19/2024 1:00 PM SIDE LASTER Appointment Department of Radiology in [place], [place] [address] [place] [address] Marilin Kaiser M.D. [address] [place] [address] 08/20/2024 9:45 AM SIDE LASTER Appointment Department of Radiology in [address] [address] Marilin Kaiesr M.D. [address] [place] [address] documented as of this encounter Visit Diagnoses Not on filedocumented in this encounter Care Teams Box Covering Machine Operator Relationship Specialty Start Date End Date Elsewhere, Pcp PCP - General Family Medicine 08/31/20 documented as of this encounter
--- OUTSIDE RECORDS SUMMARY | 2024-02-16 14:52 | XMS_ITS | Encounter Summary ---
Author Organization [facility] Address [address] [place] [address] Care Team Providers Care Leaf Sticker Name Role Phone Elsewhere, Pcp Primary Care Provider Unavailabl e Reason for Referral * Outpatient (Routine) - Authorized Specialty Diagnoses / Procedures Referred By Javon lopez Referred To Contact Diagnoses Primary Malignant Neoplasm Of Prostate (HCC) Procedures NM Post Therapy Iris-177 PSMA Monitoring Whole Body with SPECT CT Marilin Bland M.D. [address] [place] [address] [facility] Referral ID Status Reason Start Date Expiration Date V isits Requested Visits Authorized [id number] Authorized 12/27/2023 12/26/2024 8 8 Reason for Visit * Outpatient (Routine) - Authorized Specialty Diagnoses / Procedures Referred By Javon lopez Referred To Contact Diagnoses Primary Malignant Neoplasm Of Prostate (HCC) Procedures NM Post Therapy Iris-177 PSMA Monitoring Whole Body with SPECT CT Marilin Bland M.D. [address] [place] [address] [facility] Referral ID Status Reason Start Date Expiration Date V isits Requested Visits Authorized [id number] Authorized 12/27/2023 12/26/2024 8 8 Encounter Details Date Type Department Care Team (Latest Contact Info) Description 01/23/2024 9:03 AM CDT - 01/23/2024 11:59 PM CDT Hospital Encounter Department of Radiology in [place], [place] [address] [place] [address] Marilin Kaiser M.D. [address] [place] [address] Primary Malignant Neoplasm Of Prostate [...] and heating? Not hard at all 01/24/2023 [facility] - Occupational [...] situation today? I have a [facility] place to live 01/24/2023 Education Answer Date Recorded What is the highest level of school you have completed or the highest degree you have received? Master's degree (e.g., MA, MS, Gail, MEd, REAL ESTATE CLERK, JAMIE) 12/21/2021 Sex and Gender Information Value [...] PM CDT Appointment Department of Radiology in [place] [address] [place] [address] Marilin Kaiser M.D. [address] [place] [phone] 03/04/2024 1:30 PM CDT Appointment Department of Radiology in [place] [address] [place] [address] Marilin Kaiser M.D. [address] [place] [address] 03/05/2024 9:15 AM CDT Appointment Department of Radiology in [address] [address] Marilin Kaiser M.D. [address] [place] [address] 04/15/2024 1:15 PM CDT Appointment Department of Radiology in [address] [address] Marilin Kaiser M.D. [address] [place] [address] 04/15/2024 1:30 PM CDT Appointment Department of Radiology in [address] [address] Marilin Kaiser M.D. [address] [place] [address] 04/16/2024 9:15 AM CDT Appointment Department of Radiology in [address] [address] Marilin Kaiser M.D. [address] [place] [address] 05/27/2024 12:45 PM CDT Appointment Department of Radiology in [address] [address] Marilin Kaiser M.D. [address] [place] [address] 05/27/2024 1:00 PM CDT Appointment Department of Radiology in [place] [address] [place] [address] Marilin Kaiser M.D. [address] [place] [address] 05/28/2024 9:15 AM CDT Appointment Department of Radiology in [address] [address] Marilin Kaiser M.D. [address] [place] [address] 07/08/2024 1:15 PM FOREST FIRE MANAGEMENT OFFICER Appointment Department of Radiology in [address] [address] Marilin Kaiser M.D. [address] [place] [address] 07/08/2024 1:30 PM FOREST FIRE MANAGEMENT OFFICER Appointment Department of Radiology in [address] [address] Marilin Kaiser M.D. [address] [place] [address] 07/09/2024 9:45 AM FOREST FIRE MANAGEMENT OFFICER Appointment Department of Radiology in [address] [address] Marilin Kaiser M.D. [address] [place] [address] 08/19/2024 12:45 PM FOREST FIRE MANAGEMENT OFFICER Appointment Department of Radiology in [address] [address] Marilin Kaiser M.D. [address] [place] [address] 08/19/2024 1:00 PM FOREST FIRE MANAGEMENT OFFICER Appointment Department of Radiology in [place], [place] [address] [place] [address] Marilni Kaiser M.D. [address] [place] [address] 08/20/2024 9:45 AM FOREST FIRE MANAGEMENT OFFICER Appointment Department of Radiology in [place] [address] [place] [address] Marilin Kaiser M.D. [address] [place] [address] documented as of this encounter Procedures Procedure [...] MONITORING WB W SPECT CT MULTI RADIOPHARMACEUTICAL/MEDS: Riis-177 PSMA-617 (PLUVICTO) therapy was administered yesterday and noted rajeev therapy note on that date. This scan is a quantitative 3D image tolocalize the previously administered therapy including the tumor and organbiodistribution of that therapy. TECHNIQUE: Iris-177 PSMA therapy monitoring imaging with quantitative SPECTperformed from the vertex to the thighs with low dose, vot-klnnirjytiyv-cnspancgx CT for attenuation correction and anatomic localization,and [...] findings on the noncontrast low-dose CT: Right sjayhYgwi-E-Nedc tip at the low SVC. Stable 3 [...] (HCC) documented in this encounter Care Teams Leaf Sticker Relationship Specialty Start Date End Date Elsewhere, Pcp PCP - General Family Medicine 08/31/20 documented as of this encounter
--- OUTSIDE RECORDS SUMMARY | 2024-02-16 14:52 | XMS_ITS | Encounter Summary ---
Author Organization [facility] Address [address] [place] [address] Care Team Providers Care Supervisor Housecleaner Name Role Phone Elsewhere, Pcp Primary Care Provider Unavailabl e Reason for Referral * Outpatient (Routine) - Pending Review Specialty Diagnoses / Procedures Referred By Morenitaac t Referred To Contact Radiology Diagnoses Primary Malignant Neoplasm Of Prostate (HCC) Marilin Kaiser M.D. [address] [place] [address] [facility] Referral ID Status Reason Start Date Expiration Date V isits Requested Visits Authorized [id number] Pending Review 12/27/2023 06/27/2025 1 1 Reason for Visit * Outpatient (Routine) - Pending Review Specialty Diagnoses / Procedures Referred By Javon lopez Referred To Contact Radiology Diagnoses Primary Malignant Neoplasm Of Prostate (HCC) Marilin Kaiser M.D. [address] [place] [address] [facility] Referral ID Status Reason Start Date Expiration Date V isits Requested Visits Authorized [id number] Pending Review 12/27/2023 06/27/2025 1 1 Encounter Details Date Type Department Care Team (Latest Contact Info) Description 01/22/2024 11:46 AM CDT - 01/22/2024 2:02 PM CDT Hospital Encounter Department of Radiology in [place], [place] [address] [place] [address] Marilin Kaiser M.D. [address] [place] [phone] Miguelito Booth P.A.-C. [address] [place] [address] Primary Malignant Neoplasm Of Prostate (HCC) Social [...] often do you attend chur ch or synagogue services? Never 12/21/2021 Do you belong to any clubs o r organizations such as sabianist groups, unions, fraternal or athletic groups, or [...] and heating? Not hard at all 01/24/2023 [facility]at [facility] - Occupational [...] Master's degree (e.g., MA, MS, Gail, MEd, PATTERN GRADER SUPERVISOR, JAMIE) 12/21/2021 Sex and Gender Information Value [...] MEAL 11/06/2021 documented as of this encounter Consult Notes * Miguelito Booth P.A.-C. - 01/22/2024 12:30 PM CDT SUBJECTIVE REFERRING PROVIDER Marilin Kaiser M.D. [facility] [address] NUCLEAR MEDICINE PROVIDER Miguelito Booth P.A.-C. Ismael [...] Patient follows with a Dr. Rodrigues at [facility]. His next follow up appointment is [...] the care of Dr. Rachael Sanford at [facility] in [place], [place]. 01/2011 - Biological/Targeted/Hormone Therapy Lupron 30 [...] and Procedures Cryotherapy with Dr. Yu at [facility]. The patient underwent placement of [...] 11/30/2021 Critical Imaging PSMA PET scan at [facility] demonstrated radiotracer positive lesion in the [...] PROSTATE, RIGHT, NEEDLE BIOPSY: 1. Prostatic adenocarcinoma, [place] score 4 + 5 = 9 (ISUP Grade Group 5) 2. Total surface area involved: 20% 3. Number of needle biopsy cores involved: 6 of 6 4. Perineural invasion: Present B) PROSTATE, LEFT, NEEDLE BIOPSY: 1. Prostatic adenocarcinoma, Rosa Maria score 5 + 5 = 10 (ISUP [...] Common Hereditary Cancers Panel (47 genes) via [employer]. See test report fordetails regarding genes analyzed and testing methodologies. RESULT: NEGATIVE FOR CLINICALLY ACTIONABLE VARIANTS No clinically actionable (pathogenic or likely pathogenic) variants were detected in the genes analyzed. One variant of uncertain significance was detected: POLE c.2134C>G ([id number]). No laboratory classifies this variant as clinically-actionable [...] Pluvicto therapy today. Labs were done at [facility] and the results are located in the [...] Patient follows with a Dr. Rodrigues at [facility]. His next follow up appointment is [...] physicians, nurse practitioners/physician assistants, nurses and other customer support associate that specialize in this treatment. Also, reviewed the importance of maintaining ongoing care with [place] and local oncology team, as well as [...] PM CDT Appointment Department of Radiology in [place], [place] [address] [place] [address] Marilin Kaiser M.D. [address] [place] [address] 03/04/2024 1:30 PM CDT Appointment Department of Radiology in [address] [address] Marilin Kaiser M.D. [address] [place] [address] 03/05/2024 9:15 AM CDT Appointment Department of Radiology in [address] [address] Marilin Kaiser M.D. [address] [place] [address] 04/15/2024 1:15 PM CDT Appointment Department of Radiology in [address] [address] Marilin Kaiser M.D. [address] [place] [address] 04/15/2024 1:30 PM CDT Appointment Department of Radiology in [address] [address] Marilin Kaiser M.D. [address] [place] [address] 04/16/2024 9:15 AM CDT Appointment Department of Radiology in [place], [place] [address] [place] [address] Marilin Kaiser M.D. [address] [place] [address] 05/27/2024 12:45 PM CDT Appointment Department of Radiology in [address] [address] Marilin Kaiser M.D. [address] [place] [address] 05/27/2024 1:00 PM CDT Appointment Department of Radiology in [address] [address] Marilin Kaiser M.D. [address] [place] [address] 05/28/2024 9:15 AM CDT Appointment Department of Radiology in [address] [address] Marilin Kaiser M.D. [address] [place] [address] 07/08/2024 1:15 PM [employer] Appointment Department of Radiology in [address] [address] Marilin Kaiser M.D. [address] [place] [address] 07/08/2024 1:30 PM [employer] Appointment Department of Radiology in [address] [address] Marilin Kaiser M.D. [address] [place] [address] 07/09/2024 9:45 AM [employer] Appointment Department of Radiology in [place], [place] [address] [place] [address] Marilin Kaiser M.D. [address] [place] [address] 08/19/2024 12:45 PM [employer] Appointment Department of Radiology in [address] [address] Marilin Kaiser M.D. [address] [place] [address] 08/19/2024 1:00 PM [employer] Appointment Department of Radiology in [address] [address] Marilin Kaiser M.D. [address] [place] [address] 08/20/2024 9:45 AM [employer] Appointment Department of Radiology in [address] [address] Marilin Kaiser M.D. [address] [place] [address] Scheduled Referrals Name Type Priority Associated Diagnoses Order Schedule Radiology - Nuclear medicine consult (clinic) Outpatient Referral Routine Primary Malignant Neoplasm Of Prostate (HCC) Once for 1 Occurrences starting 01/22/2024 until 01/22/2024 documented as of this encounter Visit Diagnoses Diagnosis Primary Malignant Neoplasm Of Prostate (HCC) documented in this encounter Care Teams Supervisor Housecleaner Relationship Specialty Start Date End Date Elsewhere, Pcp PCP - General Family Medicine 08/31/20 documented as of this encounter
--- OUTSIDE RECORDS SUMMARY | 2024-02-16 14:52 | XMS_ITS | Clinical Summary ---
Author Organization [facility] Address [address] [place] [address] Care Team Providers Care Fibre Optics Jointer Name Role Phone Elsewhere, Pcp Primary Care Provider Unavailabl e Source Comments Patient records contain information from all sites at [facility]. For routine questions regarding patient records, call [phone] during business hours, M-F 8:00 AM - 5:00 PM Central Time. Record requests for emergency care only can be directed to [phone] at any time.[facility] Allergies Active Allergy Reactions Criticality Noted Date [...] IIA(T1c, N0, M0, PSA: Less than 10, [place] 7) - Unsigned Encounters Date Type Department Care Team Description 02/05/2024 Clinical Communication Department of Radiology in [place], [place] [address] [place] [address] Peterson Rodas 01/27/2024 Clinical Communication Department of Radiology, [facility] in [place], [place] [address] [place] [address] Elizabeth Barragan R.N. 01/23/2024 9:03 AM CDT - 01/23/2024 11:59 PM CDT Hospital Encounter Department of Radiology in [address] [address] Marilin Kaiser M.D. Primary Malignant Neoplasm Of Prostate (HCC) Discharge Disposition: Home or Self Care 01/22/2024 11:46 AM CDT - 01/22/2024 11:59 PM CDT Hospital Encounter Department of Radiology in [address] [address] Marilin Kaiser M.D. Primary Malignant Neoplasm Of Prostate (HCC) Discharge Disposition: Home or Self Care 01/22/2024 11:46 AM CDT - 01/22/2024 2:02 PM CDT Hospital Encounter Department of Radiology in [address] [address] Marilin Kaiser M.D. Dick, Michael D, P.A.-C. Primary Malignant Neoplasm Of Prostate (HCC) 01/02/2024 11:55 AM CDT Ancillary Procedure Department of Radiology in [place], [place] [address] [place] [address] Evelina Ontiveros APRN, C.N.P., D.N.P. Primary Malignant Neoplasm Of Prostate (HCC); Secondary Malignant Neoplasm Bone (HCC) 01/02/2024 Clinical Communication Department of Radiology in [place], [place] [address] [place] [address] Peterson Rodas 01/02/2024 Orders Only Department of Radiology in [place], [place] [address] [place] [address] Evelina Ontiveros APRN C.N.PLanden, D.N.P. Primary Malignant Neoplasm Of Prostate (HCC) (Primary Dx); Secondary Malignant Neoplasm Bone (HCC) 12/27/2023 Documentation Department of Radiology in [place], [place] [address] [place] [address] Evelina Ontiveros APRN C.N.P., D.N.P. 12/27/2023 Orders Only Department of Oncology in [place], [place] [address] [place] [address] Renetta Tan, R.NLanden Primary Malignant Neoplasm Of Prostate (HCC) (Primary Dx) 12/26/2023 Orders Only Department of Oncology in [place], [place] [address] [address] Renetta Tan, RLandenNLanden Secondary Malignant Neoplasm Bone (HCC) (Primary Dx); Primary Malignant Neoplasm Of Prostate (HCC) 12/26/2023 Orders Only Department of Oncology in [place], [place] [address] [place] [address] Marilin Kaiser M.D. 12/26/2023 Orders Only Department of Oncology in [place], [place] [address] [place] [address] Marilin Kaiser M.D. 12/24/2023 10:33 AM CDT - 12/24/2023 11:59 PM CDT Hospital Encounter Department of Radiology in [place], [place] [address] [address] Marilin Kaiser M.D. Primary Malignant Neoplasm Of Prostate (HCC) Discharge Disposition: Home or Self Care 12/18/2023 Orders Only Department of Oncology in [place], [place] [address] [place] [address] Marilin Kaiser M.D. Primary Malignant Neoplasm Of [...] any clubs o r organizations such as uatsdin groups, unions, fraternal or athletic groups, or [...] and heating? Not hard at all 01/24/2023 [facility] of Occupat ional Health - Occupational Stress [...] Master's degree (e.g., MA, MS, Gail, MEd, STEEL HANGER, JAMIE) 12/21/2021 Sex and Gender Information Value Date Recorded Sex Assigned at Male 12/21/2021 7:22 AM CDT Gender Identity Male 12/21/2021 7:22 AM CDT Sexual Orientation Straight 12/21/2021 7: 22 AM CDT Last Filed Vital Signs Vital Sign Reading Time Taken Comments Blood Pressure 123/65 01/22/2024 1:59 PM CDT Pulse 72 01/22/2024 1:59 PM CDT Temperature 36.1 ??C (97 ??F) 08/01/2023 11:36 AM PLANNER CHIEF Respiratory Rate - - Oxygen Saturation 99% 01/22/2024 1:59 PM CDT Inhaled Oxygen Concentration - - Weight 92.7 kg (204 lb 5.9 oz) 08/01/2023 11:36 AM PLANNER CHIEF Height - - Body Mass Index - - Plan of Treatment Upcoming Encounters Date Type Department Care Team (Late st Contact Info) Description 03/04/2024 1:15 PM CDT Appointment Department of Radiology in [place], [place] [address] [place] [address] Marilin Kaiser M.D. [address] [place] [address] 03/04/2024 1:30 PM CDT Appointment Department of Radiology in [place], [place] [address] [place] [address] Marilin Kaiser M.D. [address] [place] [address] 03/05/2024 9:15 AM CDT Appointment Department of Radiology in [address] [address] Marilin Kaiser M.D. [address] [place] [address] 04/15/2024 1:15 PM CDT Appointment Department of Radiology in [address] [address] Marilin Kaiser M.D. [address] [place] [address] 04/15/2024 1:30 PM CDT Appointment Department of Radiology in [address] [address] Marilin Kaiser M.D. [address] [place] [address] 04/16/2024 9:15 AM CDT Appointment Department of Radiology in [address] [address] Marilin Kaiser M.D. [address] [place] [address] 05/27/2024 12:45 PM CDT Appointment Department of Radiology in [address] [address] Marilin Kaiser M.D. [address] [place] [address] 05/27/2024 1:00 PM CDT Appointment Department of Radiology in [address] [address] Marilin Kaiser M.D. [address] [place] [address] 05/28/2024 9:15 AM CDT Appointment Department of Radiology in [address] [address] Marilin Kaiser M.D. [address] [place] [address] 07/08/2024 1:15 PM PLANNER CHIEF Appointment Department of Radiology in [address] [address] Marilin Kaiser M.D. [address] [place] [address] 07/08/2024 1:30 PM PLANNER CHIEF Appointment Department of Radiology in [address] [address] Marilin Kaiser M.D. [address] [place] [address] 07/09/2024 9:45 AM PLANNER CHIEF Appointment Department of Radiology in [address] [address] Marilin Kaiser M.D. [address] [place] [address] 08/19/2024 12:45 PM PLANNER CHIEF Appointment Department of Radiology in [address] [address] Marilin Kaiser M.D. [address] [place] [address] 08/19/2024 1:00 PM PLANNER CHIEF Appointment Department of Radiology in [place], [place] [address] [place] [address] Marilin Kaiser M.D. [address] [place] [address] 08/20/2024 9:45 AM PLANNER CHIEF Appointment Department of Radiology in [place], [place] [address] [place] [address] Marilin Kaiser M.D. [address] [place] [address] Health Maintenance Due Date Last Done Comments [...] METABOLIC PANEL, S/P Routine 09/13/2023 2:[address] ABDOMEN PELVIS WITH IV CONTRAST RAD [...] vertex to the thighs with low dose, yuw-vtrelfptruxf-bimjfoymc CT for attenuation correction and anatomic localization,and [...] findings on the noncontrast low-dose CT: Right oxiywGqzi-U-Itcd tip at the low SVC. Stable 3 [...] PSMA expression score: 3 Marilin Kaiser M.D. [facility] [place] PROCEDURES * NM Therapy Iris-177 PSMA [...] Iris-177 PSMA cycle 1. Marilin Kaiser M.D. [facility] NM PROCEDURES * Interpretation of Outside MR [...] Recently Relevant to Health Maintenance Care Teams Fibre Optics Jointer Relationship Specialty Start Date End Date Elsewhere, Pcp PCP - General Family Medicine 08/31/20
--- OUTSIDE RECORDS SUMMARY | 2024-02-16 14:52 | XMS_ITS | Encounter Summary ---
Author Organization [facility] Address [address] [place] [address] Care Team Providers Care Jig Boring Machine Operator For Metal Name Role Phone Elsewhere, Pcp Primary Care Provider Unavailabl e Encounter Details Date Type Department Care Team (Late st Contact Info) Description 02/05/2024 Clinical Communication Department of Radiology in [place], [place] [address] [place] [address] Peterson Rodas Social History Tobacco Use Types [...] often do you attend chur ch or latter day services? Never 12/21/2021 Do you belong to any clubs o r organizations such as mu-ism groups, unions, fraternal or athletic groups, or [...] and heating? Not hard at all 01/24/2023 [facility] of Occupat ional Health - [...] your living situation today? I have a [facility] place to live 01/24/2023 Education Answer Date Recorded What is the highest level of school you have completed or the highest degree you have received? Master's degree (e.g., MA, MS, Gail, MEd, ICER AIR CONDITIONING, JAMIE) 12/21/2021 Sex and Gender Information Value Date Recorded Sex Assigned at Male 12/21/2021 7:22 AM CDT Gender Identity Male 12/21/2021 7:22 AM CDT Sexual Orientation Straight 12/21/2021 7: 22 AM CDT documented as of this encounter Plan of Treatment Upcoming Encounters Date Type Department Care Team (Late st Contact Info) Description 03/04/2024 1:15 PM CDT Appointment Department of Radiology in [address] [address] Marilin Kaiser M.D. [address] [place] [address] 03/04/2024 1:30 PM CDT Appointment Department of Radiology in [address] [address] Marilin Kaiser M.D. [address] [place] [address] 03/05/2024 9:15 AM CDT Appointment Department of Radiology in [address] [address] Marilin Kaiser M.D. [address] [place] [address] 04/15/2024 1:15 PM CDT Appointment Department of Radiology in [address] [address] Marilin Kaiser M.D. [address] [place] [address] 04/15/2024 1:30 PM CDT Appointment Department of Radiology in [address] [address] Marilin Kaiser M.D. [address] [place] [address] 04/16/2024 9:15 AM CDT Appointment Department of Radiology in [address] [address] Marilin Kaiser M.D. [address] [place] [address] 05/27/2024 12:45 PM CDT Appointment Department of Radiology in [address] [address] Marilin Kaiser M.D. [address] [place] [address] 05/27/2024 1:00 PM CDT Appointment Department of Radiology in [address] [address] Marilin Kaiser M.D. [address] [place] [address] 05/28/2024 9:15 AM CDT Appointment Department of Radiology in [address] [address] Marilin Kaiser M.D. [address] [place] [address] 07/08/2024 1:15 PM REPORTING DEVELOPER Appointment Department of Radiology in [address] [address] Marilin Kaiser M.D. [address] [place] [address] 07/08/2024 1:30 PM REPORTING DEVELOPER Appointment Department of Radiology in [address] [address] Marilin Kaiser M.D. [address] [place] [address] 07/09/2024 9:45 AM REPORTING DEVELOPER Appointment Department of Radiology in [address] [address] Marilin Kaiser M.D. [address] [place] [address] 08/19/2024 12:45 PM REPORTING DEVELOPER Appointment Department of Radiology in [address] [address] Marilin Kaiser M.D. [address] [place] [address] 08/19/2024 1:00 PM REPORTING DEVELOPER Appointment Department of Radiology in [address] [address] Marilin Kaiser M.D. [address] [place] [facility] [place] [address] 08/20/2024 9:45 AM REPORTING DEVELOPER Appointment Department of Radiology in [place], [place] [address] [place] [address] Marilin Kaiser M.D. [address] [place] [address] documented as of this encounter Visit Diagnoses Not on filedocumented in this encounter Care Teams Jig Boring Machine Operator For Metal Relationship Specialty Start Date End Date Elsewhere, Pcp PCP - General Family Medicine 08/31/20 documented as of this encounter
--- OUTSIDE RECORDS SUMMARY | 2024-02-16 14:52 | XMS_ITS ---
Author Organization [facility] Address [address] [place] [address] Care Team Providers Care Cylinder Die Machine Helper Name Role Phone Unavailable Unavailable Unavailable Surgery Details Not on file Complications Check Surgery Details section. Procedure Estimated Blood Loss Check Surgery Details section. Procedure Findings Check Surgery Details section. Procedure Specimens Taken Check Surgery Details section.
--- OUTSIDE RECORDS SUMMARY | 2024-02-16 14:52 | XMS_ITS | Referral Summary ---
Author Organization [facility] Address [address] [place] [address] Care Team Providers Care Back Tender Cloth Printing Name Role Phone Elsewhere, Pcp Primary Care Provider Unavailabl e Source Comments Patient records contain information from all sites at [facility]. For routine questions regarding patient records, call [phone] during business hours, M-F 8:00 AM - 5:00 PM Central Time. Record requests for emergency care only can be directed to [phone] at any time.[facility] Encounters Date Type Department Care Team Description 02/05/2024 Clinical Communication Department of Radiology in [place], [place] [address] [place] [address] Peterson Rodas 01/27/2024 Clinical Communication Department of Radiology, [facility] in [place], [place] [address] [place] [address] Elizabeth Barragan R.N. 01/23/2024 9:03 AM CDT - 01/23/2024 11:59 PM CDT Hospital Encounter Department of Radiology in [address] [address] Marilin Kaiser M.D. Primary Malignant Neoplasm Of Prostate (HCC) Discharge Disposition: Home or Self Care 01/22/2024 11:46 AM CDT - 01/22/2024 11:59 PM CDT Hospital Encounter Department of Radiology in [place], [place] [address] [place] [address] Marilin Kaiser M.D. Primary Malignant Neoplasm Of Prostate (HCC) Discharge Disposition: Home or Self Care 01/22/2024 11:46 AM CDT - 01/22/2024 2:02 PM CDT Hospital Encounter Department of Radiology in [place], [place] [address] [place] [address] Marilin Kaiser M.D. Dick, Michael D, P.A.-C. Primary Malignant Neoplasm Of Prostate (HCC) 01/02/2024 Clinical Communication Department of Radiology in [place], [place] [address] [place] [address] Peterson Rodas 01/02/2024 11:55 AM CDT Ancillary Procedure Department of Radiology in [place], [place] [address] [place] [address] Evelina Ontiveros APRN, C.N.P., D.N.P. Primary Malignant Neoplasm Of Prostate (HCC); Secondary Malignant Neoplasm Bone (HCC) 01/02/2024 Orders Only Department of Radiology in [place], [place] [address] [place] [address] Evelina Ontiveros APRN, C.N.P., D.N.P. Primary Malignant Neoplasm Of Prostate (HCC) (Primary Dx); Secondary Malignant Neoplasm Bone (HCC) 12/27/2023 Documentation Department of Radiology in [place], [place] [address] [place] [address] Evelina Ontiveros APRN, C.N.P., D.N.P. 12/27/2023 Orders Only Department of Oncology in [place], [place] [address] [place] [address] Renetta Tan RTony Primary Malignant Neoplasm Of Prostate (HCC) (Primary Dx) 12/26/2023 Orders Only Department of Oncology in [place], [place] [address] [place] [phone] Renetta Tan, R.Cande. Secondary Malignant Neoplasm Bone (HCC) (Primary Dx); Primary Malignant Neoplasm Of Prostate (HCC) 12/26/2023 Orders Only Department of Oncology in [place], [place] [address] [place] [address] Marilin Kaiser M.D. 12/26/2023 Orders Only Department of Oncology in [place], [place] [address] [place] [address] Marilin Kaiser M.D. 12/24/2023 10:33 AM CDT - 12/24/2023 11:59 PM CDT Hospital Encounter Department of Radiology in [place], [place] [address] [place] [address] Marilin Kaiser M.D. Primary Malignant Neoplasm Of Prostate (HCC) Discharge Disposition: Home or Self Care 12/18/2023 Orders Only Department of Oncology in [place], [place] [address] [place] [address] Marilin Kaiser M.D. Primary Malignant Neoplasm Of [...] often do you attend chur ch or jainism services? Never 12/21/2021 Do you belong to any clubs o r organizations such as jew groups, unions, fraternal or athletic groups, or [...] heating? Not hard at all 01/24/2023 [facility] [place] [facility] Occupat ional Health - Occupational Stress [...] your living situation today? I have a [facility] place to live 01/24/2023 Education Answer Date Recorded What is the highest level of school you have completed or the highest degree you have received? Master's degree (e.g., LETTY, MS, Gail, MEd, CREDIT RISK MODELER, JAMIE) 12/21/2021 Sex and Gender Information Value Date Recorded Sex Assigned at Male 12/21/2021 7:22 AM CDT Gender Identity Male 12/21/2021 7:22 AM CDT Sexual Orientation Straight 12/21/2021 7: 22 AM CDT Last Filed Vital Signs Vital Sign Reading Time Taken Comments Blood Pressure 123/65 01/22/2024 1:59 PM CDT Pulse 72 01/22/2024 1:59 PM CDT Temperature 36.1 ??C (97 ??F) 08/01/2023 11:36 AM CHLORINE CELLS OPERATOR Respiratory Rate - - Oxygen Saturation 99% 01/22/2024 1:59 PM CDT Inhaled Oxygen Concentration - - Weight 92.7 kg (204 lb 5.9 oz) 08/01/2023 11:36 AM CHLORINE CELLS OPERATOR Height - - Body Mass Index - - Plan of Treatment Upcoming Encounters Date Type Department Care Team (Late st Contact Info) Description 03/04/2024 1:15 PM CDT Appointment Department of Radiology in [address] [address] Marilin Kaiser M.D. [address] [place] [address] 03/04/2024 1:30 PM CDT Appointment Department of Radiology in [address] [address] Marilin Kaiser M.D. [address] [place] [address] 03/05/2024 9:15 AM CDT Appointment Department of Radiology in [address] [address] Marilin Kaiser M.D. [address] [place] [address] 04/15/2024 1:15 PM CDT Appointment Department of Radiology in [place] [address] [place] [address] Marilin Kaiser M.D. [address] [place] [address] 04/15/2024 1:30 PM CDT Appointment Department of Radiology in [address] [address] Marilin Kaiser M.D. [address] [place] [address] 04/16/2024 9:15 AM CDT Appointment Department of Radiology in [address] [address] Marilin Kaiser M.D. [address] [place] [address] 05/27/2024 12:45 PM CDT Appointment Department of Radiology in [address] [address] Marilin Kaiser M.D. [address] [place] [address] 05/27/2024 1:00 PM CDT Appointment Department of Radiology in [address] [address] Marilin Kaiser M.D. [address] [place] [address] 05/28/2024 9:15 AM CDT Appointment Department of Radiology in [address] [address] Marilin Kaiser M.D. [address] [place] [address] 07/08/2024 1:15 PM CHLORINE CELLS OPERATOR Appointment Department of Radiology in [address] [address] Marilin Kaiser M.D. [address] [place] [address] 07/08/2024 1:30 PM CHLORINE CELLS OPERATOR Appointment Department of Radiology in [address] [address] Marilin Kaiser M.D. [address] [place] [address] 07/09/2024 9:45 AM CHLORINE CELLS OPERATOR Appointment Department of Radiology in [address] [address] Marilin Kaiser M.D. [address] [place] [address] 08/19/2024 12:45 PM CHLORINE CELLS OPERATOR Appointment Department of Radiology in [address] [address] Marilin Kaiser M.D. [address] [place] [address] 08/19/2024 1:00 PM CHLORINE CELLS OPERATOR Appointment Department of Radiology in [address] [address] Marilin Kaiser M.D. [address] [place] [phone] 08/20/2024 9:45 AM CHLORINE CELLS OPERATOR Appointment Department of Radiology in [place], [place] [address] [place] [address] Marilin Kaiser M.D. [address] [place] [address] Procedures Procedure Name Priority Date/Time [...] METABOLIC PANEL, S/P Routine 09/13/2023 2:36 PM [address]ORINE CELLS OPERATOR CT ABDOMEN PELVIS WITH IV CONTRAST RAD [...] vertex to the thighs with low dose, xlo-zhksrpeavmhz-zrwgbzkkp CT for attenuation correction and anatomic localization,and [...] findings on the noncontrast low-dose CT: Right [id number] tip at the low SVC. Stable 3 [...] Iris-177 PSMA cycle 1. Marilin Kaiser M.D. [facility] PROCEDURES * Interpretation of Outside MR Spine [...] Recently Relevant to Health Maintenance Care Teams Back Tender Cloth Printing Relationship Specialty Start Date End Date Elsewhere, Pcp PCP - General Family Medicine 08/31/20
--- OUTSIDE RECORDS SUMMARY | 2024-02-16 14:53 | XMS_ITS | Data Portability ---
Author Organization [facility] Address [address] [place] [address] Care Team Providers Care Hearing Care Practitioner Name Role Phone BRADY WATERS Primary Care [...] PSA, serum or plasma 2022 023 [email or web address] [facility], [address], [place], [address], 10/16/2022 09:54:18 urinalysi s, dipstick 2022 023 [facility], [address], [place], [address], 11/28/2022 10:45:27 urinalysi s, dipstick 2023 024 [facility], [address], [place], [address], 09/02/2023 14:46:28 urinalysi s, dipstick 2023 024 [facility], [address], [place], [address], 11/04/2023 14:27:12 culture, urine 2023 024 [facility], [address], [address], [place], [address], 11/05/2023 10:11:07 Referral None recorded. Procedures None [...] 50 mg tablet,ex tended release 2022 023 [facility], [address] [place] [address], [address], 09/02/2023 14:26:08 Cipro 500 mg tablet 2022 023 [facility], [facility] [place], [address], 09/02/2023 14:25:04 Eligard 45 mg (6 month) subcutane ous syringe 2022 023 [email or web address] 0 [facility], [address] [place] [address], [address], 01/23/2023 12:48:05 Patient TargetsNo targets recorded. Patient InstructionsNo instructions recorded. Reason for Referral None Reported. Results Created Date Observation Date Name Description Value Unit Range Abnormal Flag LastModifiedBy Organization Detail LastModifiedTime 11/29/19 23 11/28/2022 urina lysis , dipst ick Color-Status Yellow Not Available [facility] [address], [place], [address], 11/28/2022 10:30:30 11/29/19 23 11/28/2022 urina lysis , dipst ick pH-Status 7.5 Not Available [facility] [address], [place], [address], 11/28/2022 10:30:30 11/29/19 23 11/28/2022 urina lysis , dipst ick Blood-Status Large Not Available [facility] [address], [place], [address], 11/28/2022 10:30:30 11/29/19 23 11/28/2022 urina lysis , dipst ick Leuko-Status Trace Not Available [facility] [address], [place], [address], 11/28/2022 10:30:30 09/02/19 24 09/02/2023 urina lysis , dipst ick Color-Status Yellow Not Available [facility] [address], [place], [address], 09/02/2023 14:28:46 09/02/19 24 09/02/2023 urina lysis , dipst ick Clarity-Stat us Clear Not Available [facility] [address], [place], [address], 09/02/2023 14:28:46 09/02/19 24 09/02/2023 urina lysis , dipst ick Sp Pierce-Stat us 1.020 Not Available [facility] [address], [place], [address], 09/02/2023 14:28:46 09/02/19 24 09/02/2023 urina lysis , dipst ick pH-Status 7.0 Not Available [facility] [address], [place], [address], 09/02/2023 14:28:46 09/02/19 24 09/02/2023 urina lysis , dipst ick Nitrates-Sta tus negati ve Not Available [facility] [address], [place], [address], 09/02/2023 14:28:46 09/02/19 24 09/02/2023 urina lysis , dipst ick Blood-Status Modera te Not Available [facility] [address], [place], [address], 09/02/2023 14:28:46 09/02/19 24 09/02/2023 urina lysis , dipst ick Leuko-Status Trace Not Available [facility] [address], [place], [address], 09/02/2023 14:28:46 09/02/19 24 09/02/2023 urina lysis , dipst ick Specimen Type Voided Not Available [facility] [address], [place], [address], 09/02/2023 14:28:46 09/02/19 24 09/02/2023 urina lysis , dipst ick Performed by Carlos jenkins RN Not Available [facility] [address], [place], [address], 09/02/2023 14:28:46 11/04/19 24 11/04/2023 URINE CULTU RE final report MICROB IOLOGY RESULT S Not Available [facility] [address], [place], [address], 11/05/2023 10:11:06 11/04/19 24 11/04/2023 urina lysis , dipst ick Color-Status Yellow Not Available [facility] [address], [place], [address], 11/04/2023 14:02:20 11/04/19 24 11/04/2023 urina lysis , dipst ick Clarity-Stat us Clear Not Available [facility] [address], [place], [address], 11/04/2023 14:02:20 11/04/19 24 11/04/2023 urina lysis , dipst ick Sp Pierce-Stat us 1.020 Not Available [facility] [address], [place], [address], 11/04/2023 14:02:20 11/04/19 24 11/04/2023 urina lysis , dipst ick pH-Status 7.0 Not Available [facility] [address], [place], [address], 11/04/2023 14:02:20 11/04/19 24 11/04/2023 urina lysis , dipst ick Protein-Stat us >=9.0 Not Available [facility] [address], [place], [address], 11/04/2023 14:02:20 11/04/19 24 11/04/2023 urina lysis , dipst ick Urobilinogen -Status 0.2 Not Available [facility] [address], [place], [address], 11/04/2023 14:02:20 11/04/19 24 11/04/2023 urina lysis , dipst ick Nitrates-Sta tus negati ve Not Available [facility] [address], [place], [address], 11/04/2023 14:02:20 11/04/19 24 11/04/2023 urina lysis , dipst ick Blood-Status Modera te Not Available [facility] [address], [place], [address], 11/04/2023 14:02:20 11/04/19 24 11/04/2023 urina lysis , dipst ick Leuko-Status Trace Not Available [facility] [address], [place], [address], 11/04/2023 14:02:20 11/04/19 24 11/04/2023 urina lysis , dipst ick Specimen Type Voided Not Available [facility] [address], [place], [address], 11/04/2023 14:02:20 11/04/19 24 11/04/2023 urina lysis , dipst ick Performed by haja RN Not Available [facility] [address], [place], [address], 11/04/2023 14:02:20 10/11/19 23 09/17/2022 CT, urogr am No observ ation record ed. [email or web address] [facility] [address], [place], [address], 10/10/2022 16:57:24 11/30/19 23 11/28/2022 bladd er [...] Recorded Time 4 Urinalysis completed Marc kang [facility] 11/04/2023 14:02:05 4 Bladder Scan completed Severino Rodrigues MD [address] [place] [address],[address], [place], [address], [facility] 11/04/2023 14:13:12 4 Urinalysis completed Severino Rodrigues MD [address] [place] [address],[address], [place], [address], [facility] 09/02/2023 14:26:49 4 Bladder Scan completed Severino Rodrigues MD [address] [place] [address],[address], [place], [address], [place] [facility] 09/02/2023 14:26:41 3 Bladder Scan completed Severino Rodrigues MD [address] [place] [address],[address], [place], [address], [facility] 01/23/2023 11:45:38 3 [facility] 12:47:33 3 Bladder Scan completed Severino Rodrigues MD [address] [place] [address],[address], [place], [address], [facility] 11/28/2022 10:30:26 3 CYSTOURETHROSCO PY, WITH CALIBRATION AND/OR DILATION OF URETHRAL STRICTURE OR STENOSIS (SURG) [facility] 11/15/2022 11:26:31 3 Cystoscopy- male completed Severino Rodrigues MD [address] [place] [address],[address], [place], [address], [facility] 10/15/2022 22:46:40 2 BASIN OPERATOR/blood draw completed Severino Rodrigues MD [address] [place] [address],[address], [place], [address], [facility] 05/02/2022 16:17:09 9 colonoscopy completed Severino Rodrigues MD [address] [place] [address],[address], [address], [facility] 07/23/2022 11:34:54 Imaging Results Imaging Date Name Status LastModified by [facility]iz [facility] Details LastModified Time 09/17/2022 CT, urogram completed [email or web address] [facility] [address] [place], [address], 10/10/2022 16:57:24 11/28/2022 bladder scan (PROC) completed BARCODE Information not available 11/29/2022 09:07:29 01/10/2023 PET-CT, skull base to mid-thigh scan completed [email or web address] Information not available 01/17/2023 15:31:54 Procedure Notes None recorded. Medical Equipment None Reported. Allergies Allergen ID Allergen Name Allergen Category Reaction Reaction Severity Criticality Documentation Date Start Date Code Code System Note Provider Name and Address Organization Details Recorded Time 756619 allopurin ol medicatio n Not available Not available Not available 01/21/20202018 519 RxNorm Not Available [facility] Medications Name Sig Start Date [...] Updated DateTime 10/15/2022 185.42 cm 28.8 kg/m2 46169.14 farhana Rodrigues MD [address] [place] [address],[address], [address] [place] [address], [facility] 10/15/2022 14:42:13 Date Recorded Body height Body mass index (BMI) Body weight Provider Name and Address Organization Details Last Updated DateTime 11/28/2022 185.42 cm 28.8 kg/m2 65477.14 g Ro Benton [facility] 11/28/2022 10:26:34 Date Recorded Body height Body mass index (BMI) Body weight Provider Name and Address Organization Details Last Updated DateTime 01/23/2023 185.42 cm 28.8 kg/m2 93637.14 farhana Rodrigues MD [address] [place] [address],[address] 01/23/2023 11:42:10 Date Recorded Body height Provider Name an d Address Organization Details Last Updated DateTime 09/02/2023 185.42 cm Severino Rodrigues MD [address] [place] [address],[address] 09/02/2023 14:24:14 Date Recorded Body height Body mass index (BMI) Body weight Provider Name and Address Organization Details Last Updated DateTime 11/04/2023 185.42 cm 27.7 kg/m2 67297.4 farhana Rodrigues MD [address] [place] [address],[address] [facility] 11/04/2023 14:09:38 Social History Question Answer Notes LastModified by Organizat ion Details LastModified Time Tobacco Smoking Status Former Smoker Severino Rodrigues MD [address] [place] [address],[address], [address] [place] [address], [facility] 05/02/2022 16:16:26 What Is Your Level [...] trivalent, PF 04/14/2018 completed Severino Rodrigues MD [address] [place] [address],[address], [address], [facility] 09/02/2023 14:24:21 Influenza, adjuvanted, trivalent, PF 05/13/2017 completed Severino Rodrigues MD [address] [place] [address],[address], [address], [facility] 09/02/2023 14:24:21 Influenza, adjuvanted, trivalent, PF 06/03/2019 completed Severino Rodrigues MD [address] [place] [address],[address], [address], [facility] 09/02/2023 14:24:21 zoster recombinant 01/04/2021 lg kelly MD [address] [place] [address],[address], [address], [facility] 09/02/2023 14:24:21 zoster recombinant 03/08/2021 completed Severino kelly MD [address] [place] [address],[address], [address], [facility] 09/02/2023 14:24:21 Influenza, high-dose, quadrivalent, PF 05/11/2020 completed Severino Rodrigues MD [address] [place] [address],[address], [address], [facility] 09/02/2023 14:24:21 Influenza, high-dose, quadrivalent, PF 05/24/2021 completed Severino Rodrigues MD [address] [place] [address],[address], [place], [address], [facility] 09/02/2023 14:24:21 Influenza, adjuvanted, quadrivalent, PF 04/13/2022 completed Severino Rodrigues MD [address] [place] [address],[address], [place], [address], [facility] 09/02/2023 14:24:21 COVID-19, mRNA, LNP-S, PF, 30 mcg/0.3 mL dose 08/31/2020 completed Severino Rodrigues MD [address] [place] [address],[address], [place], [address], [facility] 09/02/2023 14:24:21 COVID-19, mRNA, LNP-S, PF, 30 mcg/0.3 mL dose 09/21/2020 completed Severino Rodrigues MD [address] [place] [address],[address], [place], [address], [facility] 09/02/2023 14:24:21 COVID-19, mRNA, LNP-S, PF, 30 mcg/0.3 mL dose 05/24/2021 completed Severino Rodrigues MD [address] [place] [address],[address], [place], [address], [facility] 09/02/2023 14:24:21 COVID-19, mRNA, LNP-S, PF, 30 mcg/0.3 mL dose, dave-sucrose 10/30/2021 completed Severino Rodrigues MD [address] [place] [address],[address], [place], [address], [facility] 09/02/2023 14:24:21 COVID-19, mRNA, LNP-S, bivalent, PF, 50 mcg/0.5 mL or 25mcg/0.25 mL dose 05/21/2022 completed Severino Rodrigues MD [address] [place] [address],[address], [place], [address], [facility] 09/02/2023 14:24:21 influenza, unspecified formulation 05/24/2008 completed Severino Rodrigues MD [address] [place] [address],[address] [place] [address], [address], [facility] 09/02/2023 14:24:21 Tdap 10/03/2005 completed Severino Rodrigues MD [address] [place] [address],[address] [place] [address], [address], [facility] 09/02/2023 14:24:21 Tdap 05/13/2017 completed Severino Rodrigues MD [address] [place] [address],[address], [address], [facility] 09/02/2023 14:24:21 Influenza, high-dose, trivalent, PF 08/08/2016 completed Severino Rodrigues MD [address] [place] [address],[address] [place] [address], [address], [facility] 09/02/2023 14:24:21 Influenza, high-dose, trivalent, PF 06/14/2014 completed Severino Rodrigues MD [address] [place] [address],[address], [address], [facility] 09/02/2023 14:24:21 pneumococcal polysaccharide PPV23 04/14/2018 completed Severino Rodrigues MD [address] [place] [address],[address], [address], [facility] 10/15/2022 14:42:46 Pneumococcal conjugate PCV 13 05/02/2015 completed Severino Rodrigues MD [address] [place] [address], [address], [facility] 10/15/2022 14:42:46 Past Encounters Encounter ID Performer Location Encounter Start Date Encounter Closed Date Diagnosis/Indication Diagnosis SNOMED-CT Code [id number] MD BAILEE [facility]_Dilma [address] [place] [address] 05/02/2022 16:02:47 05/07/2022 10:01:50 Carcinoma of prostate 072808196 Lower urin maria de jesus tract symptoms due to benign prostatic hypertrophy 94087560624605 Increased frequency of urination 926709136 [id number] MD Monico Lee [address] [place] [address] 07/23/2022 11:22:14 07/27/2022 09:43:06 Carcinoma of prostate 903845063 Lower urin maria de jesus tract symptoms due to benign prostatic hypertrophy 11672626179243 Increased frequency of urination 138508191 [id number] MD BAILEE Lee_Edingavin [address] [place] [address] 10/15/2022 14:28:15 10/19/2022 12:05:16 Carcinoma of prostate 842032203 Lower urin maria de jesus tract symptoms due to benign prostatic hypertrophy 17060138421742 Increased frequency of urination 111632456 Urethral stricture 63146 002 Leonidas hematuria 58207363 5 [id number] MD BAILEE Lee_Dilma [address] [place] [address] 11/28/2022 10:16:48 11/30/2022 11:21:06 Carcinoma of prostate 912202369 Lower urin maria de jesus tract symptoms due to benign prostatic hypertrophy 12218064062408 Leonidas hematuria 73532738 5 Increased frequency of urination 859484304 Urethral stricture 49562 002 [id number] MD BAILEE Lee_Dilma [address] [place] [address] 01/23/2023 11:17:58 01/31/2023 09:40:24 Urethral stricture 60583348 Carcinoma of prostate 25 8424731 Lower urin maria de jesus tract symptoms due to benign prostatic hypertrophy 23174769496528 Increased frequency of urination 372537566 Leonidas hematuria 38504808 5 [id number] MD BAILEE Lee_Dilma [address] [place] [address] 09/02/2023 14:10:29 09/03/2023 11:47:06 Carcinoma of prostate 603329863 Urethral stricture 57639 002 Lower urin maria de jesus tract symptoms due to benign prostatic hypertrophy 26851460635026 Increased frequency of urination 777054692 Leonidas hematuria 39615539 5 Hydronephrosis 73629514 [id number] MD Monico Lee [address] [place] [address] 11/04/2023 13:47:57 11/05/2023 10:03:04 Carcinoma of prostate 106400471 Hydronephrosis 61630150 Urethral stricture 77645 002 Lower urin maria de jesus tract symptoms due to benign prostatic hypertrophy 17614100498722 Increased frequency of urination 745410124 Leonidas hematuria 75965359 5 Health Concerns Section Related Observation LastModified by Organization Detai ls LastModified Time None Recorded Concern Status LastModified by Organization Details LastModified Time None Recorded Advance Directives Directive None Recorded Payers Encounter Date Sequence Insurance Name Policy Number Policy Simon Covered Member ID Simon Member ID Guarantor Name 10/15/2022 1 [place] [id number] Solis Thibodeaux [id number] Solis Galoman 11/28/2022 1 [place] [id number] Solis Thibodeaux [id number] Solis Ann Thibodeaux 01/23/2023 1 [place] [id number] Solis Thibodeaux [id number] Solis Ann Thibodeaux 09/02/2023 1 [place] [id number] Solis Thibodeaux [id number] Solis Galoman 11/04/2023 1 [place] [id number] Solis Galoman [id number] Solis Ann Zeigler Notes Date Note Type Note Provider Name and Address Organization Details Recorded Time 10/15/2022 text/html HPI Notes: 77 yo male dx with prostate cancer (T1c - [place] 3+4 = 7 - bilateral) on 11/28/10 [...] 14 (08/21/18) PSMA PET scan (11/30/2021) at [facility] - enhancing lesion in the prostate [...] cm) cyst (lower pole) Severino Rodrigues MD [address] [place] [address],[address], [place], [address], [facility] 10/15/2022 22:54:50 11/28/2022 text/html HPI Notes: [...] 14 (08/21/18) PSMA PET scan (11/30/2021) at [facility] - enhancing lesion in the prostate [...] cyst (lower pole) Severino Rodrigues MD [address] [facility] [facility],[address], [place], [address], [facility] - [facility] 11/28/2022 10:50:54 01/23/2023 text/html HPI Notes: [...] 14 (08/21/18) PSMA PET scan (11/30/2021) at [facility] - enhancing lesion in the prostate [...] lymph nodes seen Severino Rodrigues MD [address] [address] [facility],[address], [place], [address], [place] [facility] 01/27/2023 19:22:51 09/02/2023 text/html HPI Notes: 77 yo male dx with prostate cancer (T1c - [place] 3+4 = 7 - bilateral) on 11/28/10 [...] of prostate (02/01/23) Pathology - Left - [place] 5+5=10 - 6/6 cores (40%) - + perineural invasion - Right - [place] 4+5=9 - 6/6 cores (20%) - + [...] 14 (08/21/18) PSMA PET scan (11/30/2021) at [facility] - enhancing lesion in the prostate gland [...] lymph nodes seen Severino Rodrigues MD [address] [address],[address], [place], [address], [facility] - [facility] 09/02/2023 19:32:47 11/04/2023 text/html HPI Notes: 78 yo male dx with prostate cancer (T1c - [place] 3+4 = 7 - bilateral) on 11/28/10 [...] of prostate (02/01/23) Pathology - Left - [place] 5+5=10 - 6/6 cores (40%) - + [...] 14 (08/21/18) PSMA PET scan (11/30/2021) at [facility] - enhancing lesion in the prostate [...] metastases - no active lymph nodes seen Seveirno Rodrigues MD [address] [address], [place], [address], [place] [facility] 11/04/2023 22:17:07
--- OUTSIDE RECORDS SUMMARY | 2024-02-16 14:53 | XMS_ITS | Clinical Summary ---
Author Organization [facility] Address [place], [place] [address] Care Team Providers Care Records Associate Name Role Phone Rivas Torres MD Primary Care Provider [phone]- [phone] Allergies Active Allergy Reactions Criticality Noted Date [...] Department Care Team Description 12/26/2023 Orders Only [facility] Scanner 1 scan: (1-Ord) MR ARIELLE LUMBAR SPINE WO/W CON, 12/26/2023 12/11/2023 10:00 AM CDT Orders Only [facility] [address] [place] [address] [place] Outside Order (Severino Rodrigues) 12/11/2023 Travel 12/10/2023 Nurse Triage [facility] [address] [place] [address] Rivas Torres MD Error-please disregard (opened in error) 12/10/2023 Orders Only [facility] [address] [place] [address] Rivas Torres MD Outside Order (Ordered by Severino Rodrigues ) from Last 3 Months Immunizations Name Administration Dates Next Due COVID-19 vaccine (Push IO-Bio NTech 30mcg/0.3mL) 12YO+ MARIA C-SUCROSE PF, MDV [...] Comments Blood Pressure 155/89 10/03/2023 4:32 PM MANAGER PARTY Pulse 89 10/03/2023 4:32 PM MANAGER PARTY Temperature 36.2 ??C (97.2 ??F) 10/03/2023 4:32 PM CS T Respiratory Rate 16 10/03/2023 4:32 PM MANAGER PARTY Oxygen Saturation 98% 10/03/2023 4:32 PM MANAGER PARTY Inhaled Oxygen Concentration - - Weight 90.4 kg (199 lb 4.8 oz) 10/03/2023 1:00 P M MANAGER PARTY Height 185.4 cm (6' 1) 10/03/2023 1:00 PM MANAGER PARTY Body Mass Index 26.29 10/03/2023 1:00 PM MANAGER PARTY Plan of Treatment Upcoming Encounters Date Type Department Care Team (Latest Contact Info) Description 06/11/2024 7:15 AM MANAGER PARTY Hospital Encounter [facility] [address] [place] [address] Severino Rodrigues MD [address] [place] [id number] 06/11/2024 7:15 AM MANAGER PARTY - 06/11/2024 8:31 AM MANAGER PARTY Surgery [facility] [address] [place] [address] Severino Rodrigues MD [address] [place] [address] cystoscopy, left ureteral stent exchange Scheduled Procedures Name Priority Associated Diagnoses Date/Ti me CYSTOSCOPY EXCHANGE URETERAL STENT Elective N13.30 Unspecified hydronephrosis 06/11/2024 7:15 AM MANAGER PARTY Health Maintenance Due Date Last Done Comments [...] 03/08/2021, 01/04/2021 Medical Devices Implanted Type Area Entertainment Agent Device Identifier Shelf Expiration Date Model / Serial / Lot Stent Uret [id number] Percuflex Hydroplus - [id number] Implanted:Qty: 1 on 02/01/2023 by Severino Rodrigues MD at [facility] Left: Ureter [facility] 03/07/2025 [id number] / / [id number] Stent Uret [id number] Percuflex Hydroplus - [id number] Implanted:Qty: 1 on 10/03/2023 by Severino Rodrigues MD at [facility] Left: Ureter [facility] 03/29/2026 [id number] / / [id number] Procedures Procedure Name Priority Date/Time Associated Diagnosis [...] URINE CULTURE (12/11/2023 8:03 AM CDT) Pathologist [facility] CULTURE No growth (<1,000 CFU/mL) 12/12/2023 11:32 AM CDT [facility] Urine URINE SPECIMEN / Unknown Non-Blood / Unknown 12/11/2023 8:03 AM CDT 12/11/2023 8:03 AM CDT Rivas Torres MD [facility] [address] [place] [address], * ANTI HCV [09176.2] (05/19/2018 7:38 AM CDT) HEPATITIS C ANTIBODY Non-React rafia Non-React rafia 05/19/2018 3:00 PM CDT [facility] Comment:Antibodies to HCV no t detected; does not exclude the possibility of exposure to HCV. Blood BLOOD SPECIMEN / Unknown Venipuncture / Unknown 05/19/2018 7:38 AM CDT 05/19/2018 7:39 AM CDT Rivas Torres MD SEND [facility] [address] [place] [address], from Last 3 Months or Most Recently [...] Code Status Discussion: Not Discussed Care Teams Records Associate Relationship Specialty Start Date End Date Rivas Torres [place] [address] PCP - General 01/09/06
--- OUTSIDE RECORDS SUMMARY | 2024-02-16 14:53 | XMS_ITS | Encounter Summary ---
Author Organization [facility] Address [address] [place] [address] Care Team Providers Care Industrial Relations Specialist Name Role Phone Elsewhere, Pcp Primary Care Provider Unavailabl e Encounter Details Date Type Department Care Team (Latest Contact Info) Description 01/02/2024 11:55 AM CDT Ancillary Procedure Department of Radiology in [place], [place] [address] [place] [address] Eevlina Ontiveros, AMBER, C.N.P., D.N.P. [address] [place] [address] Primary Malignant Neoplasm Of Prostate (HCC); Secondary [...] often do you attend chur ch or shinto services? Never 12/21/2021 Do you belong to any clubs o r organizations such as anabaptism groups, unions, fraternal or athletic groups, or [...] and heating? Not hard at all 01/24/2023 [facility] - [...] your living situation today? I have a [facility] place to live 01/24/2023 Education Answer Date Recorded What is the highest level of school you have completed or the highest degree you have received? Master's degree (e.g., MA, MS, Gail, MEd, CALENDER MACHINE OPERATOR HELPER, JAMIE) 12/21/2021 Sex and Gender Information Value Date Recorded Sex Assigned at Male 12/21/2021 7:22 AM CDT Gender Identity Male 12/21/2021 7:22 AM CDT Sexual Orientation Straight 12/21/2021 7: 22 AM CDT documented as of this encounter Plan of Treatment Upcoming Encounters Date Type Department Care Team (Late st Contact Info) Description 03/04/2024 1:15 PM CDT Appointment Department of Radiology in [place], [place] [address] [place] [address] Marilin Kaiser M.D. [address] [place] [phone] 03/04/2024 1:30 PM CDT Appointment Department of Radiology in [place], [place] [address] [place] [address] Marilin Kaiser M.D. [address] [place] [address] 03/05/2024 9:15 AM CDT Appointment Department of Radiology in [place], [place] [address] [place] [address] Marilin Kaiser M.D. [address] [place] [address] 04/15/2024 1:15 PM CDT Appointment Department of Radiology in [place], [place] [address] [place] [address] Marilin Kaiser M.D. [address] [place] [address] 04/15/2024 1:30 PM CDT Appointment Department of Radiology in [place], [place] [address] [place] [address] Marilin Kaiser M.D. [address] [place] [address] 04/16/2024 9:15 AM CDT Appointment Department of Radiology in [address] [address] Marilin Kaiser M.D. [address] [place] [address] 05/27/2024 12:45 PM CDT Appointment Department of Radiology in [address] [address] Marilin Kaiser M.D. [address] [place] [address] 05/27/2024 1:00 PM CDT Appointment Department of Radiology in [address] [place] [address] Marilin Kaiser M.D. [address] [place] [address] 05/28/2024 9:15 AM CDT Appointment Department of Radiology in [address] [address] Marilin Kaiser M.D. [address] [place] [address] 07/08/2024 1:15 PM FLIGHT ATTENDANT/INFLIGHT MANAGER Appointment Department of Radiology in [address] [address] Marilin Kaiser M.D. [address] [place] [address] 07/08/2024 1:30 PM FLIGHT ATTENDANT/INFLIGHT MANAGER Appointment Department of Radiology in [address] [address] Marilin Kaiser M.D. [address] [place] [address] 07/09/2024 9:45 AM FLIGHT ATTENDANT/INFLIGHT MANAGER Appointment Department of Radiology in [address] [address] Marilin Kaiser M.D. [address] [place] [address] 08/19/2024 12:45 PM FLIGHT ATTENDANT/INFLIGHT MANAGER Appointment Department of Radiology in [address] [address] Marilin Kaiser M.D. [address] [place] [address] 08/19/2024 1:00 PM FLIGHT ATTENDANT/INFLIGHT MANAGER Appointment Department of Radiology in [place], [place] [address] [place] [address] Marilin Kaiser M.D. [address] [place] [address] 08/20/2024 9:45 AM FLIGHT ATTENDANT/INFLIGHT MANAGER Appointment Department of Radiology in [place] [address] [place] [address] Marilin Kaiser M.D. [address] [place] [address] documented as of this encounter Procedures Procedure [...] (HCC) documented in this encounter Care Teams Industrial Relations Specialist Relationship Specialty Start Date End Date Elsewhere, Pcp PCP - General Family Medicine 08/31/20 documented as of this encounter
--- OUTSIDE RECORDS SUMMARY | 2024-02-16 14:53 | XMS_ITS | Encounter Summary ---
Author Organization [facility] Address [address] [place] [address] Care Team Providers Care Liquor Tester Name Role Phone Elsewhere, Pcp Primary Care Provider Unavailabl e Encounter Details Date Type Department Care Team (Late st Contact Info) Description 12/26/2023 Orders Only Department of Oncology in [place], [place] [address] [address] Renetta Tan R.N. [address] [phone] Secondary Malignant Neoplasm Bone (HCC) (Primary Dx); [...] often do you attend chur ch or evangelical services? Never 12/21/2021 Do you belong to any clubs o r organizations such as mandaen groups, unions, fraternal or athletic groups, or [...] and heating? Not hard at all 01/24/2023 [facility] - [...] your living situation today? I have a [facility] place to live 01/24/2023 Education Answer Date Recorded What is the highest level of school you have completed or the highest degree you have received? Master's degree (e.g., MA, MS, Gail, MEd, FOCUSER, JAMIE) 12/21/2021 Sex and Gender Information Value Date Recorded Sex Assigned at Male 12/21/2021 7:22 AM CDT Gender Identity Male 12/21/2021 7:22 AM CDT Sexual Orientation Straight 12/21/2021 7: 22 AM CDT documented as of this encounter Plan of Treatment Upcoming Encounters Date Type Department Care Team (Late st Contact Info) Description 03/04/2024 1:15 PM CDT Appointment Department of Radiology in [place], [place] [address] [place] [address] Marilin Kaiser M.D. [address] [place] [phone] 03/04/2024 1:30 PM CDT Appointment Department of Radiology in [place], [place] [address] [place] [address] Marilin Kaiser M.D. [address] [place] [address] 03/05/2024 9:15 AM CDT Appointment Department of Radiology in [place], [place] [address] [place] [address] Marilin Kaiser M.D. [address] [place] [address] 04/15/2024 1:15 PM CDT Appointment Department of Radiology in [address] [address] Marilin Kaiser M.D. [address] [place] [address] 04/15/2024 1:30 PM CDT Appointment Department of Radiology in [address] [address] Marilin Kaiser M.D. [address] [place] [address] 04/16/2024 9:15 AM CDT Appointment Department of Radiology in [address] [address] Marilin Kaiser M.D. [address] [place] [address] 05/27/2024 12:45 PM CDT Appointment Department of Radiology in [address] [address] Marilin Kaiser M.D. [address] [place] [address] 05/27/2024 1:00 PM CDT Appointment Department of Radiology in [address] [address] Marilin Kaiser M.D. [address] [place] [address] 05/28/2024 9:15 AM CDT Appointment Department of Radiology in [address] [address] Marilin Kaiser M.D. [address] [place] [address] 07/08/2024 1:15 PM BOX COVERER HAND Appointment Department of Radiology in [address] [address] Marilin Kaiser M.D. [address] [place] [address] 07/08/2024 1:30 PM BOX COVERER HAND Appointment Department of Radiology in [address] [address] Marilin Kaiser M.D. [address] [place] [address] 07/09/2024 9:45 AM BOX COVERER HAND Appointment Department of Radiology in [address] [address] Marilin Kaiser M.D. [address] [place] [address] 08/19/2024 12:45 PM BOX COVERER HAND Appointment Department of Radiology in [address] [address] Marilin Kaiser M.D. [address] [place] [address] 08/19/2024 1:00 PM BOX COVERER HAND Appointment Department of Radiology in [place], [place] [address] [place] [address] Marilin Kaiser M.D. [address] [place] [address] 08/20/2024 9:45 AM BOX COVERER HAND Appointment Department of Radiology in [place] [address] [place] [address] Marilin Kaiser M.D. [address] [place] [address] documented as of this encounter Visit Diagnoses Diagnosis Secondary Malignant Neoplasm Bone (HCC)- Primary Primary Malignant Neoplasm Of Prostate (HCC) documented in this encounter Care Teams Liquor Tester Relationship Specialty Start Date End Date Elsewhere, Pcp PCP - General Family Medicine 08/31/20 documented as of this encounter
--- OUTSIDE RECORDS SUMMARY | 2024-02-16 14:53 | XMS_ITS | Encounter Summary ---
Author Organization [facility] Address [address] [place] [address] Care Team Providers Care Transportation Aid Name Role Phone Elsewhere, Pcp Primary Care Provider Unavailabl e Reason for Referral * Outpatient (Routine) - Authorized Specialty Diagnoses / Procedures Referred By Javon t Referred To Contact Diagnoses Primary Malignant Neoplasm Of Prostate (HCC) Procedures NM Post Therapy Iris-177 PSMA Monitoring Whole Body with SPECT CT Multiple Marilin Kaiser M.D. [address] [place] [address] [facility] Referral ID Status Reason Start Date Expiration Date V isits Requested Visits Authorized [id number] Authorized 12/27/2023 12/26/2024 8 8 * Outpatient (Routine) - Authorized Specialty Diagnoses / Procedures Referred By Contac t Referred To Contact Diagnoses Primary Malignant Neoplasm Of Prostate (HCC) Procedures NM Therapy Iris-177 PSMA Marilin Kaiser M.D. [address] [place] [address] [facility] Referral ID Status Reason Start Date Expiration Date V isits Requested Visits Authorized [id number] Authorized 12/27/2023 12/26/2024 8 8 * Outpatient (Routine) - Authorized Specialty Diagnoses / Procedures Referred By Contac t Referred To Contact Marilin Kaiser M.D. [address] [place] [address] [facility] Referral ID Status Reason Start Date Expiration Date V isits Requested Visits Authorized [id number] Authorized 12/27/2023 06/27/2025 1 1 * Outpatient (Routine) - Authorized Specialty Diagnoses / Procedures Referred By Contac t Referred To Contact Diagnoses Primary Malignant Neoplasm Of Prostate (HCC) Procedures NM Post Therapy Iris-177 PSMA Monitoring Whole Body with SPECT CT Multiple Marilin Kaiser M.D. [address] [place] [address] [facility] Referral ID Status Reason Start Date Expiration Date V isits Requested Visits Authorized [id number] Authorized 12/27/2023 12/26/2024 8 8 * Outpatient (Routine) - Authorized Specialty Diagnoses / Procedures Referred By Contac t Referred To Contact Diagnoses Primary Malignant Neoplasm Of Prostate (HCC) Procedures NM Therapy Iris-177 PSMA Marilin Kaiser M.D. [address] [place] [address] [facility] Referral ID Status Reason Start Date Expiration Date V isits Requested Visits Authorized [id number] Authorized 12/27/2023 12/26/2024 8 8 * Outpatient (Routine) - Authorized Specialty Diagnoses / Procedures Referred By Contdagoberto t Referred To Contact Marilin Kaiser M.D. [address] [place] [address] [facility] Referral ID Status Reason Start Date Expiration Date V isits Requested Visits Authorized [id number] Authorized 12/27/2023 06/27/2025 1 1 * Outpatient (Routine) - Authorized Specialty Diagnoses / Procedures Referred By Morenitaac t Referred To Contact Diagnoses Primary Malignant Neoplasm Of Prostate (HCC) Procedures NM Post Therapy Iris-177 PSMA Monitoring Whole Body with SPECT CT Multiple Marilin Kaiser M.D. [address] [place] [address] [facility] Referral ID Status Reason Start Date Expiration Date V isits Requested Visits Authorized [id number] Authorized 12/27/2023 12/26/2024 8 8 * Outpatient (Routine) - Authorized Specialty Diagnoses / Procedures Referred By Javon t Referred To Contact Diagnoses Primary Malignant Neoplasm Of Prostate (HCC) Procedures NM Therapy Iris-177 PSMA Marilin Kaiser M.D. [address] [place] [address] [facility] Referral ID Status Reason Start Date Expiration Date V isits Requested Visits Authorized [id number] Authorized 12/27/2023 12/26/2024 8 8 * Outpatient (Routine) - Authorized Specialty Diagnoses / Procedures Referred By Javon t Referred To Contact Marilin Kaiser M.D. [address] [place] [address] [facility] Referral ID Status Reason Start Date Expiration Date V isits Requested Visits Authorized [id number] Authorized 12/27/2023 06/27/2025 1 1 * Outpatient (Routine) - Authorized Specialty Diagnoses / Procedures Referred By Contac t Referred To Contact Diagnoses Primary Malignant Neoplasm Of Prostate (HCC) Procedures NM Post Therapy Iris-177 PSMA Monitoring Whole Body with SPECT CT Multiple Job, Marilin, M.D. [address] [place] [address] [facility] Referral ID Status Reason Start Date Expiration Date V isits Requested Visits Authorized [id number] Authorized 12/27/2023 12/26/2024 8 8 * Outpatient (Routine) - Authorized Specialty Diagnoses / Procedures Referred By Contac t Referred To Contact Diagnoses Primary Malignant Neoplasm Of Prostate (HCC) Procedures NM Therapy Iris-177 PSMA Marilin Kaiser M.D. [address] [place] [address] [facility] Referral ID Status Reason Start Date Expiration Date V isits Requested Visits Authorized [id number] Authorized 12/27/2023 12/26/2024 8 8 * Outpatient (Routine) - Authorized Specialty Diagnoses / Procedures Referred By Contac t Referred To Contact Marilin Kaiser M.D. [address] [place] [address] [facility] Referral ID Status Reason Start Date Expiration Date V isits Requested Visits Authorized [id number] Authorized 12/27/2023 06/27/2025 1 1 * Outpatient (Routine) - Authorized Specialty Diagnoses / Procedures Referred By Contac t Referred To Contact Diagnoses Primary Malignant Neoplasm Of Prostate (HCC) Procedures NM Post Therapy Iris-177 PSMA Monitoring Whole Body with SPECT CT Marilin Bland M.D. [address] [place] [address] [facility] Referral ID Status Reason Start Date Expiration Date V isits Requested Visits Authorized [id number] Authorized 12/27/2023 12/26/2024 8 8 * Outpatient (Routine) - Authorized Specialty Diagnoses / Procedures Referred By Morenitaac t Referred To Contact Diagnoses Primary Malignant Neoplasm Of Prostate (HCC) Procedures NM Therapy Iris-177 PSMA Marilin Kaiser M.D. [address] [place] [address] [facility] Referral ID Status Reason Start Date Expiration Date V isits Requested Visits Authorized [id number] Authorized 12/27/2023 12/26/2024 8 8 * Outpatient (Routine) - Authorized Specialty Diagnoses / Procedures Referred By Javon t Referred To Contact Marilin Kaiser M.D. [address] [place] [address] [facility] Referral ID Status Reason Start Date Expiration Date V isits Requested Visits Authorized [id number] Authorized 12/27/2023 06/27/2025 1 1 * Outpatient (Routine) - Authorized Specialty Diagnoses / Procedures Referred By Javon t Referred To Contact Diagnoses Primary Malignant Neoplasm Of Prostate (HCC) Procedures NM Post Therapy Iris-177 PSMA Monitoring Whole Body with SPECT CT Multiple Marilin Kaiser M.D. [address] [place] [address] [facility] Referral ID Status Reason Start Date Expiration Date V isits Requested Visits Authorized [id number] Authorized 12/27/2023 12/26/2024 8 8 * Outpatient (Routine) - Authorized Specialty Diagnoses / Procedures Referred By Contac t Referred To Contact Diagnoses Primary Malignant Neoplasm Of Prostate (HCC) Procedures NM Therapy Iris-177 PSMA Marilin Kaiser M.D. [address] [place] [address] [facility] Referral ID Status Reason Start Date Expiration Date V isits Requested Visits Authorized [id number] Authorized 12/27/2023 12/26/2024 8 8 * Outpatient (Routine) - Pending Review Specialty Diagnoses / Procedures Referred By Javon lopez Referred To Contact Radiology Diagnoses Primary Malignant Neoplasm Of Prostate (HCC) Marilin Kaiser M.D. [address] [place] [address] [facility] Referral ID Status Reason Start Date Expiration Date V isits Requested Visits Authorized [id number] Pending Review 12/27/2023 06/27/2025 1 1 Encounter Details Date Type Department Care Team (Late st Contact Info) Description 12/27/2023 Orders Only Department of Oncology in [place], [place] [address] [place] [address] Renetta Tan R.N. [address], [place] [address] Primary Malignant Neoplasm Of Prostate (HCC) (Primary [...] How often do you attend chur or confucianism services? Never 12/21/2021 Do you belong to [...] and heating? Not hard at all 01/24/2023 [facility] Occupat ional Health - Occupational Stress [...] Master's degree (e.g., MA, MS, Gail, MEd, SCHOOL LIBRARY MEDIA PROGRAM DIRECTOR, JAMIE) 12/21/2021 Sex and Gender Information Value Date Recorded Sex Assigned at Male 12/21/2021 7:22 AM CDT Gender Identity Male 12/21/2021 7:22 AM CDT Sexual Orientation Straight 12/21/2021 7: 22 AM CDT documented as of this encounter Plan of Treatment Upcoming Encounters Date Type Department Care Team (Late st Contact Info) Description 03/04/2024 1:15 PM CDT Appointment Department of Radiology in [place], [place] [address] [place] [address] Marilin Kaiser M.D. [address] [place] [phone] 03/04/2024 1:30 PM CDT Appointment Department of Radiology in [address] [address] Marilin Kaiser M.D. [address] [place] [address] 03/05/2024 9:15 AM CDT Appointment Department of Radiology in [address] [address] Marilin Kaiser M.D. [address] [place] [address] 04/15/2024 1:15 PM CDT Appointment Department of Radiology in [address] [address] Marilin Kaiser M.D. [address] [place] [address] 04/15/2024 1:30 PM CDT Appointment Department of Radiology in [address] [address] Marilin Kaiser M.D. [address] [place] [address] 04/16/2024 9:15 AM CDT Appointment Department of Radiology in [address] [address] Marilin Kaiser M.D. [address] [place] [address] 05/27/2024 12:45 PM CDT Appointment Department of Radiology in [address] [address] Marilin Kaiser M.D. [address] [place] [address] 05/27/2024 1:00 PM CDT Appointment Department of Radiology in [place] [address] [place] [address] Marilin Kaiser M.D. [address] [place] [address] 05/28/2024 9:15 AM CDT Appointment Department of Radiology in [address] [address] Marilin Kaiser M.D. [address] [place] [address] 07/08/2024 1:15 PM ENTRY PROCESSOR Appointment Department of Radiology in [address] [address] Marilin Kaiser M.D. [address] [place] [address] 07/08/2024 1:30 PM ENTRY PROCESSOR Appointment Department of Radiology in [address] [address] Marilin Kaiser M.D. [address] [place] [address] 07/09/2024 9:45 AM ENTRY PROCESSOR Appointment Department of Radiology in [address] [address] Marilin Kaiser M.D. [address] [place] [address] 08/19/2024 12:45 PM ENTRY PROCESSOR Appointment Department of Radiology in [place], [place] [address] [place] [address] Marilin Kaiser M.D. [address] [place] [address] 08/19/2024 1:00 PM ENTRY PROCESSOR Appointment Department of Radiology in [place], [place] [address] [place] [address] Marilin Kaiser M.D. [address] [place] [address] 08/20/2024 9:45 AM ENTRY PROCESSOR Appointment Department of Radiology in [place] [address] [place] [address] Marilin Kaiser M.D. [address] [place] [address] Scheduled Orders Name Type Priority Associated Diagnoses [...] vertex to the thighs with low dose, psp-wweygxbkitoh-[id number] CT for attenuation correction and anatomic localization,and [...] findings on the noncontrast low-dose CT: Right [id number]-Phvm tip at the low SVC. Stable 3 [...] PSMA expression score: 3 Marilin Kaiser M.D. [facility] NM PROCEDURES * NM Therapy Iris-177 PSMA [...] (HCC) documented in this encounter Care Teams Transportation Aid Relationship Specialty Start Date End Date Elsewhere, Pcp PCP - General Family Medicine 08/31/20 documented as of this encounter
--- OUTSIDE RECORDS SUMMARY | 2024-02-16 14:53 | XMS_ITS | Encounter Summary ---
Author Organization [facility] Address [address] [place] [address] Care Team Providers Care Resume Writer Name Role Phone Elsewhere, Pcp Primary Care Provider Unavailabl e Encounter Details Date Type Department Care Team (Late st Contact Info) Description 01/02/2024 Orders Only Department of Radiology in [place], [place] [address] [place] [address] Evelina Ontiveros, AMBER, C.N.P., D.N.P. [address] [place] [address] Primary Malignant Neoplasm Of Prostate (HCC) (Primary [...] often do you attend chur ch or taoism services? Never 12/21/2021 Do you belong to any clubs o r organizations such as restorationism groups, unions, fraternal or athletic groups, or [...] and heating? Not hard at all 01/24/2023 [facility] - Occupational Stress Questionnaire Answer Date [...] your living situation today? I have a [facility] place to live 01/24/2023 Education Answer Date Recorded What is the highest level of school you have completed or the highest degree you have received? Master's degree (e.g., MA, MS, Gail, MEd, UNIX ADMINISTRATOR, JAMIE) 12/21/2021 Sex and Gender Information Value Date Recorded Sex Assigned at Male 12/21/2021 7:22 AM CDT Gender Identity Male 12/21/2021 7:22 AM CDT Sexual Orientation Straight 12/21/2021 7: 22 AM CDT documented as of this encounter Plan of Treatment Upcoming Encounters Date Type Department Care Team (Late st Contact Info) Description 03/04/2024 1:15 PM CDT Appointment Department of Radiology in [place], [place] [address] [place] [address] Marilin Kaiser M.D. 404 [place] [address] 03/04/2024 1:30 PM CDT Appointment Department of Radiology in [place], [place] [address] [place] [address] Marilin Kaiser M.D. [address] [place] [address] 03/05/2024 9:15 AM CDT Appointment Department of Radiology in [place], [place] [address] [place] [address] Marilin Kaiser M.D. [address] [place] [address] 04/15/2024 1:15 PM CDT Appointment Department of Radiology in [place], [place] [address] [place] [address] Marilin Kaiser M.D. 404 [place] [address] 04/15/2024 1:30 PM CDT Appointment Department of Radiology in [place] [address] [place] [address] Marilin Kaiser M.D. [address] [place] [address] 04/16/2024 9:15 AM CDT Appointment Department of Radiology in [address] [address] Marilin Kaiser M.D. [address] [place] [address] 05/27/2024 12:45 PM CDT Appointment Department of Radiology in [address] [address] Marilin Kaiser M.D. [address] [place] [address] 05/27/2024 1:00 PM CDT Appointment Department of Radiology in [address] [address] Marilin Kaiser M.D. [address] [place] [address] 05/28/2024 9:15 AM CDT Appointment Department of Radiology in [address] [address] Marilin Kaiser M.D. [address] [place] [address] 07/08/2024 1:15 PM MESSAGE AND DELIVERY SERVICE PRICER Appointment Department of Radiology in [address] [address] Marilin Kaiser M.D. [address] [place] [address] 07/08/2024 1:30 PM MESSAGE AND DELIVERY SERVICE PRICER Appointment Department of Radiology in [address] [address] Marilin Kaiser M.D. [address] [place] [address] 07/09/2024 9:45 AM MESSAGE AND DELIVERY SERVICE PRICER Appointment Department of Radiology in [address] [address] Marilin Kaiser M.D. [address] [place] [address] 08/19/2024 12:45 PM MESSAGE AND DELIVERY SERVICE PRICER Appointment Department of Radiology in [address] [address] Marilin Kaiser M.D. [address] [place] [address] 08/19/2024 1:00 PM MESSAGE AND DELIVERY SERVICE PRICER Appointment Department of Radiology in [place], [place] [address] [place] [address] Marilin Kaiser M.D. 404 [address] [facility] [place] [address] 08/20/2024 9:45 AM MESSAGE AND DELIVERY SERVICE PRICER Appointment Department of Radiology in [place], [place] [address] [place] [address] Marilin Kaiser M.D. 404 [facility] [place] [address] documented as of this encounter Results * [...] (HCC) documented in this encounter Care Teams Resume Writer Relationship Specialty Start Date End Date Elsewhere, Pcp PCP - General Family Medicine 08/31/20 documented as of this encounter
--- OUTSIDE RECORDS SUMMARY | 2024-02-16 14:53 | XMS_ITS | Encounter Summary ---
Author Organization [facility] Address [address] [place] [address] Care Team Providers Care Container Packer Operator Name Role Phone Elsewhere, Pcp Primary Care Provider Unavailabl e Encounter Details Date Type Department Care Team (Late st Contact Info) Description 12/26/2023 Orders Only Department of Oncology in [place], [place] [address] [place] [phone] Marilin Kaiser M.D. [address] [place] [address] Social History Tobacco Use Types Packs/Day Years [...] often do you attend chur ch or gnosticist services? Never 12/21/2021 Do you belong to [...] and heating? Not hard at all 01/24/2023 [facility]at ional Health - [...] living situation today? I have a [facility] place to live 01/24/2023 Education Answer Date Recorded What is the highest level of school you have completed or the highest degree you have received? Master's degree (e.g., MA, MS, Gail, MEd, SCIENTIFIC INVESTIGATOR, JAMIE) 12/21/2021 Sex and Gender Information Value Date Recorded Sex Assigned at Male 12/21/2021 7:22 AM CDT Gender Identity Male 12/21/2021 7:22 AM CDT Sexual Orientation Straight 12/21/2021 7: 22 AM CDT documented as of this encounter Plan of Treatment Upcoming Encounters Date Type Department Care Team (Late st Contact Info) Description 03/04/2024 1:15 PM CDT Appointment Department of Radiology in [place], [place] [address] [place] [address] Marilin Kaiser M.D. 404 [place] [address] 03/04/2024 1:30 PM CDT Appointment Department of Radiology in [place], [place] [address] [place] [address] Marilin Kaiser M.D. 404 [place] [address] 03/05/2024 9:15 AM CDT Appointment Department of Radiology in [address] [address] Marilin Kaiser M.D. [address] [place] [address] 04/15/2024 1:15 PM CDT Appointment Department of Radiology in [address] [address] Marilin Kaiser M.D. [address] [place] [address] 04/15/2024 1:30 PM CDT Appointment Department of Radiology in [address] [address] Marilin Kaiser M.D. [address] [place] [address] 04/16/2024 9:15 AM CDT Appointment Department of Radiology in [address] [address] Marilin Kaiser M.D. [address] [place] [address] 05/27/2024 12:45 PM CDT Appointment Department of Radiology in [address] [address] Marilin Kaiser M.D. [address] [place] [address] 05/27/2024 1:00 PM CDT Appointment Department of Radiology in [address] [address] Marilin Kaiser M.D. [address] [place] [address] 05/28/2024 9:15 AM CDT Appointment Department of Radiology in [place], [place] [address] [place] [address] Marilin Kaiser M.D. [address] [place] [address] 07/08/2024 1:15 PM SENIOR ERP CONSULTANT Appointment Department of Radiology in [place] [address] [place] [address] Marilin Kaiser M.D. [address] [place] [address] 07/08/2024 1:30 PM SENIOR ERP CONSULTANT Appointment Department of Radiology in [place] [address] [place] [address] Marilin Kaiser M.D. [address] [place] [address] 07/09/2024 9:45 AM SENIOR ERP CONSULTANT Appointment Department of Radiology in [place] [address] [place] [address] Marilin Kaiser M.D. [address] [place] [address] 08/19/2024 12:45 PM SENIOR ERP CONSULTANT Appointment Department of Radiology in [place] [address] [place] [address] Marilin Kaiser M.D. [address] [place] [address] 08/19/2024 1:00 PM SENIOR ERP CONSULTANT Appointment Department of Radiology in [place], [place] [address] [place] [address] Marilin Kaiser M.D. 404 [place] [address] 08/20/2024 9:45 AM SENIOR ERP CONSULTANT Appointment Department of Radiology in [address] [address] Marilin Kaiser M.D. [address] [place] [address] documented as of this encounter Visit Diagnoses Not on filedocumented in this encounter Care Teams Container Packer Operator Relationship Specialty Start Date End Date Elsewhere, Pcp PCP - General Family Medicine 08/31/20 documented as of this encounter
--- OUTSIDE RECORDS SUMMARY | 2024-02-16 14:53 | XMS_ITS | Encounter Summary ---
Author Organization [facility] Address [address] [place] [address] Care Team Providers Care Quiller Hand Name Role Phone Elsewhere, Pcp Primary Care Provider Unavailabl e Reason for Referral * MRI/CAT/PET Scan (Routine) - Closed Specialty Diagnoses / Procedures Referred By Javon lopez Referred To Contact Diagnoses Primary Malignant Neoplasm Of Prostate (HCC) Procedures PET CT Skull to Thigh PSMA Marilin Kaiser M.D. [address] [place] [address] [facility] Referral ID Status Reason Start Date Expiration Date Visits Re quested Visits Authorized [id number] Closed 12/18/2023 12/17/2024 1 1 Reason for Visit * MRI/CAT/PET Scan (Routine) - Closed Specialty Diagnoses / Procedures Referred By Javon lopez Referred To Contact Diagnoses Primary Malignant Neoplasm Of Prostate (HCC) Procedures PET CT Skull to Thigh PSMA Marilin Kaiser M.D. [address] [place] [address] [facility] Region Referral ID Status Reason Start Date Expiration Date Visits Re quested Visits Authorized [id number] Closed 12/18/2023 12/17/2024 1 1 Encounter Details Date Type Department Care Team (Latest Contact Info) Description 12/24/2023 10:33 AM CDT - 12/24/2023 11:59 PM CDT Hospital Encounter Department of Radiology in [place], [place] [address] [place] [address] Marilin Kaiser M.D. [address] [place] [address] Primary Malignant Neoplasm Of Prostate [...] often do you attend chur ch or pentecostalism services? Never 12/21/2021 Do you belong to [...] and heating? Not hard at all 01/24/2023 [facility] of Occupat ional Health - Occupational Stress [...] your living situation today? I have a [facility] place to live 01/24/2023 Education Answer Date Recorded What is the highest level of school you have completed or the highest degree you have received? Master's degree (e.g., LETTY, MS, Gail, MEd, TRAPEZE ARTIST, JAMIE) 12/21/2021 Sex and Gender Information Value [...] PM CDT Appointment Department of Radiology in [place], [place] [address] [place] [address] Marilin Kaiser M.D. [address] [place] [address] 03/04/2024 1:30 PM CDT Appointment Department of Radiology in [place], [place] [address] [place] [address] Marilin Kaiser M.D. [address] [place] [address] 03/05/2024 9:15 AM CDT Appointment Department of Radiology in [address] [address] Marilin Kaiser M.D. [address] [place] [address] 04/15/2024 1:15 PM CDT Appointment Department of Radiology in [address] [address] Marilin Kaiser M.D. [address] [place] [address] 04/15/2024 1:30 PM CDT Appointment Department of Radiology in [address] [address] Marilin Kaiser M.D. [address] [place] [address] 04/16/2024 9:15 AM CDT Appointment Department of Radiology in [address] [address] Marilin Kaiser M.D. [address] [place] [address] 05/27/2024 12:45 PM CDT Appointment Department of Radiology in [address] [address] Marilin Kaiser M.D. [address] [place] [address] 05/27/2024 1:00 PM CDT Appointment Department of Radiology in [address] [address] Marilin Kaiser M.D. [address] [place] [address] 05/28/2024 9:15 AM CDT Appointment Department of Radiology in [place], [place] [address] [place] [address] Marilin Kiaser M.D. [address] [place] [address] 07/08/2024 1:15 PM HYDROGRAPHER Appointment Department of Radiology in [address] [address] Marilin Kaiser M.D. [address] [place] [address] 07/08/2024 1:30 PM HYDROGRAPHER Appointment Department of Radiology in [place] [address] [place] [address] Marilin Kaiser M.D. [address] [place] [address] 07/09/2024 9:45 AM HYDROGRAPHER Appointment Department of Radiology in [address] [address] Marilin Kaiser M.D. [address] [place] [address] 08/19/2024 12:45 PM HYDROGRAPHER Appointment Department of Radiology in [address] [address] Marilin Kaiser M.D. [address] [place] [address] 08/19/2024 1:00 PM HYDROGRAPHER Appointment Department of Radiology in [address] [place] [address] Marilin Kaiser M.D. [address] [place] [address] 08/20/2024 9:45 AM HYDROGRAPHER Appointment Department of Radiology in [place], [place] [address] [place] [address] Marilin Kaiser M.D. [address] [place] [address] documented as of this encounter Procedures Procedure [...] Antecubital documented in this encounter Care Teams Quiller Hand Relationship Specialty Start Date End Date Elsewhere, Pcp PCP - General Family Medicine 08/31/20 documented as of this encounter
--- OUTSIDE RECORDS SUMMARY | 2024-02-16 14:53 | XMS_ITS | Clinical Summary ---
Author Organization [facility] Address [address] [place] [address] Care Team Providers Care Group Program Manager Name Role Phone Rivas Torres MD Primary Care Provider +1- [phone] Allergies Active Allergy Reactions Criticality Noted Date [...] 3 days 10/22/2022 Active Cholecalciferol 250 MCG (34277 UT) CAPS 01/17/2022 Active lisinopril (ZESTRIL) 20 [...] age to complete this topic Care Teams Group Program Manager Relationship Specialty Start Date End Date Rivas Torres MD PCP - General Family Practice 04/27/19
--- OUTSIDE RECORDS SUMMARY | 2024-02-16 14:53 | XMS_ITS | Referral Summary ---
Author Organization [facility] Address [address] [place] [address] Care Team Providers Care Asphalt Paving Machine Operator Name Role Phone Rivas Torres MD Primary Care Provider +1- [phone] Allergies Active Allergy Reactions Criticality Noted Date [...] 3 days 10/22/2022 Active Cholecalciferol 250 MCG (06774 UT) CAPS 01/17/2022 Active lisinopril (ZESTRIL) 20 [...] of Treatment Not on file Care Teams Asphalt Paving Machine Operator Relationship Specialty Start Date End Date Rivas Torres MD PCP - General Family Practice 04/27/19
--- OUTSIDE RECORDS SUMMARY | 2024-02-16 14:53 | XMS_ITS | Encounter Summary ---
Author Organization [facility] Address [address] [place] [address] Care Team Providers Care Delimer Name Role Phone Elsewhere, Pcp Primary Care Provider Unavailabl e Encounter Details Date Type Department Care Team (Late st Contact Info) Description 12/27/2023 Documentation Department of Radiology in [place], [place] [address] [place] [address] Evelina Ontiveros, AMBER, C.N.P., D.N.P. [address] [place] [address] Social History Tobacco Use Types Packs/Day Years [...] any clubs o r organizations such as baptist groups, unions, fraternal or athletic groups, or [...] and heating? Not hard at all 01/24/2023 [facility] [place] of Occupat ional Health - Occupational Stress [...] your living situation today? I have a [employer] place to live 01/24/2023 Education Answer Date Recorded What is the highest level of school you have completed or the highest degree you have received? Master's degree (e.g., MA, MS, Gail, MEd, RESOURCE PROTECTION SPECIALIST, JAMIE) 12/21/2021 Sex and Gender Information Value [...] Prostate biopsy was performed. Pathology demonstrated adenocarcinoma, [place] 3+4=7. Adenocarcinomawas an every biopsy specimen, generally with greater than 50% total surface area involved. Perineural invasion was also present. T1c. 01/29/2011 - 03/28/2011 Radiation Therapy Intensity modulated radiation therapy to the prostate to a dose of 7560 cGy in 42 fractions under the care of Dr. Rachael Sanford at [facility] in [place], [place]. 01/2011 - Biological/Targeted/Hormone Therapy Lupron 30 [...] and Procedures Cryotherapy with Dr. Yu at [facility]. The patient underwent placement of 13 [...] 11/30/2021 Critical Imaging PSMA PET scan at [facility] demonstrated radiotracer positive lesion in [...] PROSTATE, RIGHT, NEEDLE BIOPSY: 1. Prostatic adenocarcinoma, Rsoa Maria score 4 + 5 = 9 [...] Common Hereditary Cancers Panel (47 genes) via [employer]. See test report fordetails regarding genes analyzed and testing methodologies. RESULT: NEGATIVE FOR CLINICALLY ACTIONABLE VARIANTS No clinically actionable (pathogenic or likely pathogenic) variants were detected in the genes analyzed. One variant of uncertain significance was detected: POLE c.2134C>G ([id number]). No laboratory classifies this variant as clinically-actionable [...] Master's degree (e.g., MA, MS, Gail, MEd, RESOURCE PROTECTION SPECIALIST, JAMIE) Occupational History Not on file Tobacco [...] have a steady place to live OBJECTIVE Rosa Maria Score: 10 poorly differentiated/high grade [...] PM CDT Appointment Department of Radiology in [address] [address] Marilin Kaiser M.D. [address] [place] [address] 03/04/2024 1:30 PM CDT Appointment Department of Radiology in [address] [address] Marilin Kaiser M.D. [address] [place] [address] 03/05/2024 9:15 AM CDT Appointment Department of Radiology in [address] [address] Marilin Kaiser M.D. [address] [place] [address] 04/15/2024 1:15 PM CDT Appointment Department of Radiology in [address] [address] Marilin Kasier M.D. [address] [place] [address] 04/15/2024 1:30 PM CDT Appointment Department of Radiology in [address] [address] Marilin Kaiser M.D. [address] [place] [address] 04/16/2024 9:15 AM CDT Appointment Department of Radiology in [address] [address] Marilin Kaiser M.D. [address] [place] [address] 05/27/2024 12:45 PM CDT Appointment Department of Radiology in [address] [address] Marilin Kaiser M.D. [address] [place] [address] 05/27/2024 1:00 PM CDT Appointment Department of Radiology in [address] [address] Marilin Kaiser M.D. [address] [place] [address] 05/28/2024 9:15 AM CDT Appointment Department of Radiology in [address] [address] Marilin Kaiser M.D. [address] [place] [address] 07/08/2024 1:15 PM GARMENT MENDER Appointment Department of Radiology in [address] [address] Marilin Kaiser M.D. [address] [place] [address] 07/08/2024 1:30 PM GARMENT MENDER Appointment Department of Radiology in [address] [address] Marilin Kaiser M.D. [address] [place] [address] 07/09/2024 9:45 AM GARMENT MENDER Appointment Department of Radiology in [address] [address] Marilin Kaiser M.D. [address] [place] [address] 08/19/2024 12:45 PM GARMENT MENDER Appointment Department of Radiology in [address] [address] Marilin Kaiser M.D. [address] [place] [address] 08/19/2024 1:00 PM GARMENT MENDER Appointment Department of Radiology in [address] [address] Marilin Kaiser M.D. [address] [place] [address] 08/20/2024 9:45 AM GARMENT MENDER Appointment Department of Radiology in [place], [place] [address] [place] [address] Marilin Kaiser M.D. 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
--- OUTSIDE RECORDS SUMMARY | 2024-02-16 14:53 | XMS_ITS | Encounter Summary ---
Author Organization [facility] Address [address] [place] [address] Care Team Providers Care Health Occupations Instructor Name Role Phone Elsewhere, Pcp Primary Care Provider Unavailabl e Reason for Referral * MRI/CAT/PET Scan (Routine) - Closed Specialty Diagnoses / Procedures Referred By Contac t Referred To Contact Diagnoses Primary Malignant Neoplasm Of Prostate (HCC) Procedures PET CT Skull to Thigh PSMA Marilin Kaiser M.D. [address] [place] [address] [facility] Region Referral ID Status Reason Start Date Expiration Date Visits Re quested Visits Authorized [id number] Closed 12/18/2023 12/17/2024 1 1 Encounter Details Date Type Department Care Team (Late st Contact Info) Description 12/18/2023 Orders Only Department of Oncology in [place], [place] [address] [place] [phone] Marilin Kaiser M.D. [address] [place] [phone] Primary Malignant Neoplasm Of Prostate (HCC) (Primary [...] How often do you attend chur or orthodox services? Never 12/21/2021 Do you belong to any clubs o r organizations such as congregation groups, unions, fraternal or athletic groups, or [...] and heating? Not hard at all 01/24/2023 [facility] of Occupat ional Health - Occupational Stress [...] your living situation today? I have a [facility] place to live 01/24/2023 Education Answer Date Recorded What is the highest level of school you have completed or the highest degree you have received? Master's degree (e.g., MA, MS, Gail, MEd, LICENSE ISSUER, JAMIE) 12/21/2021 Sex and Gender Information Value Date Recorded Sex Assigned at Male 12/21/2021 7:22 AM CDT Gender Identity Male 12/21/2021 7:22 AM CDT Sexual Orientation Straight 12/21/2021 7: 22 AM CDT documented as of this encounter Plan of Treatment Upcoming Encounters Date Type Department Care Team (Late Contact Info) Description 03/04/2024 1:15 PM CDT Appointment Department of Radiology in [address] [address] Marilin Kaiser M.D. [address] [place] [address] 03/04/2024 1:30 PM CDT Appointment Department of Radiology in [address] [address] Marilin Kaiser M.D. [address] [place] [address] 03/05/2024 9:15 AM CDT Appointment Department of Radiology in [address] [address] Marilin Kaiser M.D. [address] [place] [address] 04/15/2024 1:15 PM CDT Appointment Department of Radiology in [address] [address] Marilin Kaiser M.D. [address] [place] [phone] 04/15/2024 1:30 PM CDT Appointment Department of Radiology in [address] [address] Marilin Kaiser M.D. [address] [place] [address] 04/16/2024 9:15 AM CDT Appointment Department of Radiology in [address] [address] Marilin Kaiser M.D. [address] [place] [address] 05/27/2024 12:45 PM CDT Appointment Department of Radiology in [address] [address] Marilin Kaiser M.D. [address] [place] [address] 05/27/2024 1:00 PM CDT Appointment Department of Radiology in [address] [address] Marilin Kaiser M.D. [address] [place] [address] 05/28/2024 9:15 AM CDT Appointment Department of Radiology in [address] [address] Marilin Kaiser M.D. [address] [place] [address] 07/08/2024 1:15 PM SILK CREPE MACHINE OPERATOR Appointment Department of Radiology in [address] [address] Marilin Kaiser M.D. [address] [place] [address] 07/08/2024 1:30 PM SILK CREPE MACHINE OPERATOR Appointment Department of Radiology in [address] [address] Marilin Kaiser M.D. [address] [place] [address] 07/09/2024 9:45 AM SILK CREPE MACHINE OPERATOR Appointment Department of Radiology in [place], [place] [address] [place] [address] Marilin Kaiser M.D. [address] [place] [address] 08/19/2024 12:45 PM SILK CREPE MACHINE OPERATOR Appointment Department of Radiology in [address] [address] Marilin Kaiser M.D. [address] [place] [address] 08/19/2024 1:00 PM SILK CREPE MACHINE OPERATOR Appointment Department of Radiology in [address] [address] Marilin Kaiser M.D. [address] [place] [address] 08/20/2024 9:45 AM SILK CREPE MACHINE OPERATOR Appointment Department of Radiology in [address] [address] Marilin Kaiser M.D. [address] [place] [address] documented as of this encounter Results * [...] (HCC) documented in this encounter Care Teams Health Occupations Instructor Relationship Specialty Start Date End Date Elsewhere, Pcp PCP - General Family Medicine 08/31/20 documented as of this encounter
--- OUTSIDE RECORDS SUMMARY | 2024-02-16 14:53 | XMS_ITS | Encounter Summary ---
Author Organization [facility] Address [address] [place] [address] Care Team Providers Care Master [employer] Name Role Phone Elsewhere, Pcp Primary Care Provider Unavailabl e Encounter Details Date Type Department Care Team (Late st Contact Info) Description 12/26/2023 Orders Only Department of Oncology in [place], [place] [address] [place] [phone] Marilin Kaiser M.D. [address] [place] [phone] Social History Tobacco Use Types Packs/Day Years [...] often do you attend chur ch or moravian services? Never 12/21/2021 Do you belong to any clubs o r organizations such as orthodoxy groups, unions, fraternal or athletic groups, or [...] your living situation today? I have a [facility] place to live 01/24/2023 Education Answer Date Recorded What is the highest level of school you have completed or the highest degree you have received? Master's degree (e.g., MA, MS, Gail, MEd, WEIGHT CHECKER, JAMIE) 12/21/2021 Sex and Gender Information Value Date Recorded Sex Assigned at Male 12/21/2021 7:22 AM CDT Gender Identity Male 12/21/2021 7:22 AM CDT Sexual Orientation Straight 12/21/2021 7: 22 AM CDT documented as of this encounter Plan of Treatment Upcoming Encounters Date Type Department Care Team (Late st Contact Info) Description 03/04/2024 1:15 PM CDT Appointment Department of Radiology in [place], [place] [address] [place] [address] Marilin Kaiser M.D. [address] [place] [address] 03/04/2024 1:30 PM CDT Appointment Department of Radiology in [place], [place] [address] [place] [address] Marilin Kaiser M.D. [address] [place] [address] 03/05/2024 9:15 AM CDT Appointment Department of Radiology in [address] [address] Marilin Kaiser M.D. [address] [place] [address] 04/15/2024 1:15 PM CDT Appointment Department of Radiology in [address] [address] Marilin Kaiser M.D. [address] [place] [address] 04/15/2024 1:30 PM CDT Appointment Department of Radiology in [address] [address] Marilin Kaiser M.D. [address] [place] [address] 04/16/2024 9:15 AM CDT Appointment Department of Radiology in [address] [address] Marilin Kaiser M.D. [address] [place] [address] 05/27/2024 12:45 PM CDT Appointment Department of Radiology in [address] [address] Marilin Kaiser M.D. [address] [place] [address] 05/27/2024 1:00 PM CDT Appointment Department of Radiology in [address] [address] Marilin Kaiser M.D. [address] [place] [address] 05/28/2024 9:15 AM CDT Appointment Department of Radiology in [place], [place] [address] [place] [address] Marilin Kaiser M.D. [address] [place] [address] 07/08/2024 1:15 PM IOS ARCHITECT Appointment Department of Radiology in [place] [address] [place] [address] Marilin Kaiser M.D. [address] [place] [address] 07/08/2024 1:30 PM IOS ARCHITECT Appointment Department of Radiology in [place] [address] [place] [address] Marilin Kaiser M.D. [address] [place] [address] 07/09/2024 9:45 AM IOS ARCHITECT Appointment Department of Radiology in [place] [address] [place] [address] Marilin Kaiser M.D. [address] [place] [address] 08/19/2024 12:45 PM IOS ARCHITECT Appointment Department of Radiology in [place] [address] [place] [address] Marilin Kaiser M.D. [address] [place] [address] 08/19/2024 1:00 PM IOS ARCHITECT Appointment Department of Radiology in [place], [place] [address] [place] [address] Marilin Kaiser M.D. [address] [place] [address] 08/20/2024 9:45 AM IOS ARCHITECT Appointment Department of Radiology in [address] [address] Marilin Kaiser M.D. [address] [place] [address] documented as of this encounter Visit Diagnoses Not on filedocumented in this encounter Care Teams Master [employer] Relationship Specialty Start Date End Date Elsewhere, Pcp PCP - General Family Medicine 08/31/20 documented as of this encounter
--- NOTE | 2024-02-16 15:27 | ED_ITS ---
HPI - General Adult General Chief complaint: Urogenital Problems, Male Stated complaint: urinary retention after blood transfusion Time Seen by Provider: 02/16/24 13:55 Source: patient Mode of arrival: ambulatory Limitations: no limitations History of Present Illness HPI narrative: 78-year-old male coming in today concerned about urinary retention that started this morning. Patient states he has not been able to get any urine out all day and he has been having increased suprapubic discomfort. Patient states that he recently had a blood transfusion on his discharge paperwork urinary retention was a potential side effect. Patient does have a history of metastatic prostate cancer but has not had issues with urinary retention before. Patient denies fevers, chills, nausea or vomiting. States that every now and then he does have blood in his urine but that is rare. He is not on any blood thinners. He does take Flomax daily. Patient states that was right when he got to the ER he did have some urine ou tput, does not know exactly how much. Related Data Home Medications ?Medication ?Instructions ?Recorded ?Confirmed rosuvastatin 5 mg tablet 5 mg PO DAILY 03/28/22 02/13/24 tamsulosin 0.4 mg capsule 0.8 mg PO DAILY 03/28/22 02/13/24 cyanocobalamin (vitamin B-12) 500 mcg PO Q3D 01/31/23 02/13/24 1,000 mcg capsule leuprolide acetate (6 month) 45 mg 45 mg IM [id number] 01/31/23 02/13/24 intramuscular syringe kit (Lupron Depot) lisinopril 20 mg tablet 10 mg PO BID 04/01/23 02/11/24 potassium chloride 20 mEq 40 meq PO BID 10/21/23 02/13/24 tablet,extended release ibuprofen 200 mg tablet (Advil) 400 mg PO Q8H PRN 12/18/23 02/13/24 Previous Rx's ?Medication ?Instructions ?Recorded oxycodone-acetaminophen 5 mg-325 1 tab PO Q6H PRN pain #60 tabs 02/05/24 mg tablet (Percocet) calcium carbonate 1,000 mg (2 x 500 mg calcium 02/11/24 (1,250 mg)) PO QID #360 tabs cholecalciferol (vitamin D3) 50 50 mcg PO DAILY #30 caps 07/09/24 mcg (2,000 unit) capsule (Vitamin D3) Allergies Allergy/AdvReac Type Severity Reaction Status Date / Time allopurinol Allergy Intermediate Verified 02/13/24 13:41 Review of Systems Status of ROS: Reports: 10 or more systems reviewed and unremarkable except as noted in History and below 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 stenosis of unspecified nasolacrimal duct (ICD-10) Rash in adult ?R21 - Rash and other nonspecific skin eruption (ICD-10) Hypokalemia ?E87.6 - Hypokalemia (ICD-10) Hypocalcemia ?E83.51 - Hypocalcemia (ICD-10) 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 He is . His closest contact, primary support and healthcare power of mergers and acquisitions attorney is Paulette Russo, his ex- and current friend. Nonsmoker. Former moderate alcohol consumption but none for several months. What is your current living situation?: I presently have a place to live Problems where you live: no known problems Problems where you live details: n/a In the past 12 months, utilities in danger of being shut off: no In past 12 months, lack of transportation kept you from medical appts, meetings, work, or getting things needed for daily living: no In the past 12 mos, have been you worried that your food would run out before you had money to buy more?: never true In the past 12 mos, the food you bought just didn't last and you didn't have money to buy more?: never true Highest level of school completed/degree received: Master's degree Smoking Status: Never smoker Do you use any of these nicotine containing products: None How often do you have a drink containing alcohol: never AUDIT-C Alcohol total score: 0 Non-prescribed substance use: denies use Caffeine: Yes How often does anyone, including family, friends and others, physically hurt you : never How often does anyone, including family, friends and others, insult or talk down to you: never How often does anyone, including family, friends and others, threaten you with harm: never How often does anyone, including family, friends and others, scream or curse at you: never service: No Exam Narrative: Exam Narrative: Well-developed, elderly patient in no acute distress. Alert and oriented. Answers questions appropriately. Mood and affect are appropriate. Thoughts are goal oriented and rational. No tangential or magical thinking noted. Patient speaks in full sentences without needing to catch his breath. HEENT: Normocephalic atraumatic. Pupils are equally round reactive to light. Extraocular muscles are intact. Cardiovascular: Heart is regular rate and rhythm S1 and S2 are present without any murmurs. Lungs: Clear to auscultation bilaterally no wheezes rhonchi or rales are appreciated. Patient takes deep breaths without any discomfort. Abdomen: Soft and nontender with normal bowel sounds. He has mild suprapubic distention without pain. Skin: Well perfused without any obvious rashes. Const: Vital Signs, click to edit/add: Vital Signs - 24 hr 02/16/24 14:25 Temperature 97.0 F L Pulse Rate [Left P ulse Oximeter] 103 H Respiratory Rate 16 Blood Pressure [Ri ght Upper Arm] 130/76 Pulse Oximetry 97 Oxygen Delivery Me thod Room Air Course Course ED Course: Bladder scan was done after the patient voided, almost 500 mL visualized. In an effort to avoid catheterization patient attempted to urinate again and he did urinate approximately 100 mL of urine. He felt like his problem was improving given the fact that he could not even get urine started all day. At this time patient wishes to avoid catheterization wish and to continue attempting to void on his own. He will return to the ER should his attempts fail. Vital Signs Vital signs: Initial Vital Signs Temperature 97.0 F L 02/16/24 14:25 Temperature Source Temporal Artery Scan 02/16/24 14:25 Pulse Rate 103 H 02/16/24 14:25 Pulse Rhythm Regular 02/16/24 14:25 Respiratory Rate 16 02/16/24 14:25 Blood Pressure 130/76 02/16/24 14:25 Blood Pressure Mean 94 02/16/24 14:25 Blood Pressure Position Sitting 02/16/24 14:25 Pulse Oximetry 97 02/16/24 14:25 Oxygen Delivery Method Room Air 02/16/24 14:25 Vital Signs Temperature 97.0 F L 02/16/24 14:25 Pulse Rate 103 H 02/16/24 14:25 Respiratory Rate 16 02/16/24 14:25 Blood Pressure 130/76 02/16/24 14:25 Pulse Oximetry 97 02/16/24 14:25 Oxygen Delivery Method Room Air 02/16/24 14:25 Temperature 97.0 F L 02/16/24 14:25 Pulse Rate 103 H 02/16/24 14:25 Respiratory Rate 16 02/16/24 14:25 Blood Pressure 130/76 02/16/24 14:25 Pulse Oximetry 97 02/16/24 14:25 Oxygen Delivery Method Room Air 02/16/24 14:25 Medical Decision Making MDM Narrative Medical decision making narrative: 78-year-old with urinary retention. At this time patient wishes not to have an indwelling catheter placed. He wished to continue to try to void on his own. Discharge Plan Discharge Clinical Impression: Acute urinary retention Patient Disposition: Home, Self-Care Condition: Stable Additional Instructions: Return to ER, follow-up with your primary care provider or urologist if trouble persists. Prescriptions: No Action ibuprofen [Advil] 200 mg tablet 400 mg PO Q8H PRN rosuvastatin 5 mg tablet 5 mg PO DAILY tamsulosin 0.4 mg capsule 0.8 mg PO DAILY lisinopril 20 mg tablet 10 mg PO BID Patient Comments: potassium chloride 20 mEq tablet extended release 40 meq PO BID cholecalciferol (vitamin D3) [Vitamin D3] 50 mcg (2,000 unit) capsule 50 mcg PO DAILY Qty: 30 0RF calcium carbonate 500 mg calcium (1,250 mg) tablet 1,000 mg PO QID Qty: 360 0RF cyanocobalamin (vitamin B-12) 1,000 mcg capsule 500 mcg PO Q3D Lupron Depot (6 Month) 45 mg syringe kit 45 mg IM [id number] oxycodone-acetaminophen [Percocet] 5-325 mg tablet 1 tab PO Q6H PRN (Reason: pain) Qty: 60 0RF Follow Up/Referrals: Rivas Torres MD [Primary Care Provider] - Stand Alone Forms: MyHealth Info Instructions
== END 2024-02-16 15:39 | disposition home or self-care (01) ==
PROVIDERS: Emergency Provider Family Medicine; PCP Family Medicine
DX: R33.9 Retention of urine, unspecified (principal)
CPT/HCPCS: 51798; 99283; 99284

== ENCOUNTER 2024-02-17 20:01 | Emergency (ER) | payer MEDICARE, BC, SELFPAY ==
[2024-02-17 20:06] VITALS: BP 132/81; PULSE 127; RESP 24; TEMP 36.7; O2SAT 97; BMI 23.1
--- NOTE | 2024-02-17 20:07 | ED_ITS ---
HPI - General Adult General Date Seen: 02/17/24 Chief complaint: Urogenital Problems, Male Stated complaint: urine retention Time Seen by Provider: 02/17/24 20:03 History of Present Illness HPI narrative: 78-year-old male with a past medical history of prostate cancer with osseous metastasis, status post radiation therapy, on androgen deprivation therapy. He presents to ER today for acute urinary retention. He was seen in the ER yesterday on 02/15. He had presented with suprapubic discomfort and inability to pass urine throughout the day. He did void a small amount well in the ER but postvoid residual ultrasound still showed 500 mils in the bladder. He was able to urinate again, an additional 100 mLs. He wanted to avoid Mccann catheter placement and felt like he was doing better so discharged home without a catheter. He was able to urinate small amounts overnight last night. Since this morning he has not been able to urinate. He is developing progressively worsening suprapubic pain and discomfort. He is not having any flank pain. No back pain today. He does have known bone Mets from his prostate cancer so does have leg pain, which is his baseline. He took an oxycodone for his leg pain earlier. No fever or chills. No nausea or vomiting. He follows with Dr. Rea for his prostate cancer care. He also follows with [facility] and apparently started summer radioactive therapy a couple of weeks ago. He was told that he could develop hematuria from the radiation therapy and that if he does develop blood clots in his bladder it might cause urinary retention and that if that happens he should come to the ER. His urologist is Dr. Rodrigues through [facility] [place] [employer] Home Medications ?Medication ?Instructions ?Recorded ?Confirmed rosuvastatin 5 mg tablet 5 mg PO DAILY 03/28/22 02/13/24 tamsulosin 0.4 mg capsule 0.8 mg PO DAILY 03/28/22 02/13/24 cyanocobalamin (vitamin B-12) 500 mcg PO Q3D 01/31/23 02/13/24 1,000 mcg capsule leuprolide acetate (6 month) 45 mg 45 mg IM [id number] 01/31/23 02/13/24 intramuscular syringe kit (Lupron Depot) lisinopril 20 mg tablet 10 mg PO BID 04/01/23 02/11/24 potassium chloride 20 mEq 40 meq PO BID 10/21/23 02/13/24 tablet,extended release ibuprofen 200 mg tablet (Advil) 400 mg PO Q8H PRN 12/18/23 02/13/24 Previous Rx's ?Medication ?Instructions ?Recorded oxycodone-acetaminophen 5 mg-325 1 tab PO Q6H PRN pain #60 tabs 02/05/24 mg tablet (Percocet) calcium carbonate 1,000 mg (2 x 500 mg calcium 02/11/24 (1,250 mg)) PO QID #360 tabs cholecalciferol (vitamin D3) 50 50 mcg PO DAILY #30 caps 02/11/24 mcg (2,000 unit) capsule (Vitamin D3) Allergies Allergy/AdvReac Type Severity Reaction Status Date / Time allopurinol Allergy Intermediate Verified 02/13/24 13:41 [facility] Medical History Palliative care encounter ?Z51.5 - Encounter for palliative care (ICD-10) Fatigue ?R53.83 - Other fatigue (ICD-10) Anorexia ?R63.0 - Anorexia (ICD-10) Intravenous bisphosphonates causing adverse effect in therapeutic use ?T45.8X5A - Adverse effect of other primarily systemic and hematological agents, initial encounter (ICD-10) Myopathy ?G72.9 - Myopathy, unspecified (ICD-10) 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 - Acquired stenosis of unspecified nasolacrimal duct (ICD-10) Rash in adult ?R21 - Rash and other nonspecific skin eruption (ICD-10) Hypokalemia ?E87.6 - Hypokalemia (ICD-10) Hypocalcemia ?E83.51 - Hypocalcemia (ICD-10) 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 He is . His closest contact, primary support and healthcare power of staff attorney is Paulette Russo, his ex- and current friend. Nonsmoker. Former moderate alcohol consumption but none for several months. What is your current living situation?: I presently have a place to live Problems where you live: no known problems Problems where you live details: n/a In the past 12 months, utilities in danger of being shut off: no In past 12 months, lack of transportation kept you from medical appts, meetings, work, or getting things needed for daily living: no In the past 12 mos, have been you worried that your food would run out before you had money to buy more?: never true In the past 12 mos, the food you bought just didn't last and you didn't have money to buy more?: never true Highest level of school completed/degree received: Master's degree Smoking Status: Never smoker Do you use any of these nicotine containing products: None How often do you have a drink containing alcohol: never AUDIT-C Alcohol total score: 0 Non-prescribed substance use: denies use Caffeine: Yes How often does anyone, including family, friends and others, physically hurt you : never How often does anyone, including family, friends and others, insult or talk down to you: never How often does anyone, including family, friends and others, threaten you with harm: never How often does anyone, including family, friends and others, scream or curse at you: never service: No Exam Narrative: Exam Narrative: Constitutional: Appears well-developed and somewhat frail appearing but able to stand and walk on his own. Has discomfort with walking and moving his legs because of his bone Mets. Alert. Conversant. Non toxic. HENT: Head: Atraumatic. Nose: Nose normal. Mouth/Throat: Oral mucosa is clear and moist. no trismus. Pharynx normal. Tonsils symmetric. No tonsillar enlargement, erythema, or exudate. Eyes: Conjunctivae normal. EOM normal. Pupils equal, round, and reactive to light. No scleral icterus. Neck: Normal range of motion. Neck supple. No tracheal deviation present. Cardiovascular: Tachycardic, regular rhythm. No gallop. No friction rub. No murmur heard. Normal capillary refill Pulmonary/Chest: Effort normal. No stridor. No respiratory distress. No wheezes. No rales. No rhonchi . No tenderness. Abdominal: Soft. Bowel sounds normal. No distension. No mass. Suprapubic tenderness. No rebound. No guarding. No CVA tenderness. : Normal circumcised penis. Normal testicles and scrotum. He has 1 small drop of yellowish/or just urine at the urethral meatus. Nurses are attempting to place a Mccann catheter but they are heading obstruction of the prostate. Catheter seems to be coiling in the urethra. Musculoskeletal: RUE: Normal range of motion. No tenderness. No deformity LUE: Normal range of motion. No tenderness. No deformity RLE: Normal range of motion. No edema. No tenderness. No deformity LLE: Normal range of motion. No edema. No tenderness. No deformity Neurological: Alert and oriented to person, place, and time. Normal strength. CN II-VII intact. No sensory deficit. GCS eye subscore is 4. GCS verbal subscore is 5. GCS motor subscore is 6. Normal coordination Skin: Skin is warm and dry. No rash noted. No pallor. Normal capillary refill. Psychiatric: Normal mood. Normal affect. Const: Vital Signs, click to edit/add: Vital Signs - 24 hr 02/17/24 20:06 02/17/24 20:50 02/17/24 21:16 Temperature 98.1 F 97.6 F Pulse Rate [Pulse Oximeter] 127 H 104 H 110 H Respiratory Rate 24 20 Blood Pressure [Ri ght Upper Arm] 132/81 158/96 H Pulse Oximetry 97 98 96 Oxygen Delivery Me thod Room Air Room Air Room Air Course Course ED Course: Patient arrived and was roomed in the ER bed 5. He had suprapubic discomfort due to acute urinary retention that started yesterday but worsened today. Noted to relieve his discomfort I asked the nurse to place Mccann catheter. Nurses attempted but were unsuccessful in placing the catheter. Nurse tried with a 12 Hungarian Mccann and felt they might been able to get a small amount of urine and then inflated the balloon but then the catheter came out. Turns out the catheter head coiled in the urethra and the tip was actually probably near the urethral meatus with a tried to inflate the balloon. The procedure: Mccann catheter placement Using sterile technique I re-attempted place Mccann catheter. I tried with a 18 Hungarian coude tip catheter which would be stiffer and more likely to pass through prostatic resistance. I was unable to pass the prostate. Care was taken to avoid excess pressure or creation of a false passage. We did not receive any urine output. I re-attempted with a 22 Hungarian coude tip catheter. I was able to get through the patient's penile urethra and down to the prostate but again unable to pass the prostate due to resistance. We discontinued attempts at catheterization. He was able to urinate a few small drops of urine, total in perhaps 100 mL. He remained in discomfort Reevaluation(s) Reevaluation #1: Discussed options with the patient and with his ex- (who is his power of staff attorney). They agree with the plan for transfer for urologic consultation. Since his urologist is through [facility], we contacted [facility] Discussed with [facility] ER, Dr. Merrill Nj and then with [facility] Urology (Dr. Rodrigues (this patient's primary urologist) and transfer is arranged. He will transfer by private car to the ER at [facility]. He will check into the ER there to be evaluated by the ER docs with the plan for urologic consultation. He was noted to be tachycardic at triage which I felt was related to discomfort and anxiety. After resting here in the ER heart rate actually came down to around 100. He is in otherwise hemodynamically stable, neurologically intact. At this point I do not have any clear evidence for sepsis or other life- threatening infection. Will need further workup at the [facility] ER. He does have history of bone Mets which would raise potential concern for cauda equine a causing his urinary retention, however he has no other new leg numbness or weakness or other symptoms of cauda equina. He would not benefit for remaining here in the ER [place] from further imaging. Further workup can be undertaken as needed [facility] after his bladder is decompressed and his discomfort is relieved.. Vital Signs Vital signs: Initial Vital Signs Temperature 98.1 F 02/17/24 20:06 Temperature Source Temporal Artery Scan 02/17/24 20:06 Pulse Rate 127 H 02/17/24 20:06 Respiratory Rate 24 02/17/24 20:06 Blood Pressure 132/81 02/17/24 20:06 Blood Pressure Mean 98 02/17/24 20:06 Blood Pressure Position Sitting 02/17/24 20:06 Pulse Oximetry 97 02/17/24 20:06 Oxygen Delivery Method Room Air 02/17/24 20:06 Vital Signs Temperature 98.1 F 02/17/24 20:06 Pulse Rate 127 H 02/17/24 20:06 Respiratory Rate 24 02/17/24 20:06 Blood Pressure 132/81 02/17/24 20:06 Pulse Oximetry 97 02/17/24 20:06 Oxygen Delivery Method Room Air 02/17/24 20:06 Temperature 97.6 F 02/17/24 21:16 Pulse Rate 110 H 02/17/24 21:16 Respiratory Rate 20 02/17/24 21:16 Blood Pressure 158/96 H 02/17/24 21:16 Pulse Oximetry 96 02/17/24 21:16 Oxygen Delivery Method Room Air 02/17/24 21:16 Medications Administered Medications: Discontinued Medications Generic Name Dose Route Start Last Admin Trade Name Freq PRN Reason Stop Dose Admin Oxycodone HCl 5 mg 02/17/24 20:42 02/17/24 20:48 Oxycodone 5 Mg Tablet PO 02/17/24 20:43 5 mg ONCE ONE Administration Medical Decision Making MDM Narrative Medical decision making narrative: Presented to the ER today with acute urinary retention leading to significant suprapubic bladder discomfort. Unfortunately were not able to pass a Mccann catheter here in the ER. Transfer is arranged to [facility] where he can be seen by his urologist pamela with a plan for him to have a catheter placed in the OR. He will transfer expeditiously to [facility] ER by private car. Discharge Plan Discharge Clinical Impression: Acute urinary retention, Abdominal pain, suprapubic, Prostate cancer metastatic to bone Patient Disposition: Xfer [facility] Discharge Location: [facility] Additional Instructions: Please go directly to the emergency department at [facility], in [place]. He will check into the ER to be seen there. Dr. Rodrigues and the urology team can evaluate you and get a catheter in for you. Do not eat or drink until after you are evaluated by Dr. Rodrigues Good luck! Prescriptions: No Action ibuprofen [Advil] 200 mg tablet 400 mg PO Q8H PRN rosuvastatin 5 mg tablet 5 mg PO DAILY tamsulosin 0.4 mg capsule 0.8 mg PO DAILY lisinopril 20 mg tablet 10 mg PO BID Patient Comments: potassium chloride 20 mEq tablet extended release 40 meq PO BID cholecalciferol (vitamin D3) [Vitamin D3] 50 mcg (2,000 unit) capsule 50 mcg PO DAILY Qty: 30 0RF calcium carbonate 500 mg calcium (1,250 mg) tablet 1,000 mg PO QID Qty: 360 0RF cyanocobalamin (vitamin B-12) 1,000 mcg capsule 500 mcg PO Q3D Lupron Depot (6 Month) 45 mg syringe kit 45 mg IM [id number] oxycodone-acetaminophen [Percocet] 5-325 mg tablet 1 tab PO Q6H PRN (Reason: pain) Qty: 60 0RF Stand Alone Forms: MyHealth Info Instructions
[2024-02-17] MEDS: OXYCODONE 5 MG TABLET PO (20:48)
--- OUTSIDE RECORDS SUMMARY | 2024-02-17 20:49 | XMS_ITS | Encounter Summary ---
Author Organization [facility] Address [address] [place] [address] Care Team Providers Care Campus Safety Officer Name Role Phone Elsewhere, Pcp Primary Care Provider Unavailabl e Reason for Referral * Outpatient (Routine) - Authorized Specialty Diagnoses / Procedures Referred By Javon lopez Referred To Contact Diagnoses Primary Malignant Neoplasm Of Prostate (HCC) Procedures NM Post Therapy Iris-177 PSMA Monitoring Whole Body with SPECT CT Marilin Bland M.D. [address] [place] [address] [facility] Referral ID Status Reason Start Date Expiration Date V isits Requested Visits Authorized [id number] Authorized 12/27/2023 12/26/2024 8 8 Reason for Visit * Outpatient (Routine) - Authorized Specialty Diagnoses / Procedures Referred By Javon lopez Referred To Contact Diagnoses Primary Malignant Neoplasm Of Prostate (HCC) Procedures NM Post Therapy Iris-177 PSMA Monitoring Whole Body with SPECT CT Marilin Bland M.D. [address] [place] [address] [facility] Referral ID Status Reason Start Date Expiration Date V isits Requested Visits Authorized [id number] Authorized 12/27/2023 12/26/2024 8 8 Encounter Details Date Type Department Care Team (Latest Contact Info) Description 01/23/2024 9:03 AM CDT - 01/23/2024 11:59 PM CDT Hospital Encounter Department of Radiology in [place], [place] [address] [place] [address] Marilin Kaiser M.D. [address] [place] [address] Primary Malignant Neoplasm Of Prostate [...] often do you attend chur ch or catholic services? Never 12/21/2021 Do you belong to [...] and heating? Not hard at all 01/24/2023 [facility] - Occupational [...] your living situation today? I have a [facility] place to live 01/24/2023 Education Answer Date Recorded What is the highest level of school you have completed or the highest degree you have received? Master's degree (e.g., MA, MS, Gail, MEd, [employer], JAMIE) 12/21/2021 Sex and Gender Information Value [...] PM CDT Appointment Department of Radiology in [place] [address] [place] [address] Marilin Kaiser M.D. [address] [place] [phone] 03/04/2024 1:30 PM CDT Appointment Department of Radiology in [place] [address] [place] [address] Marilin Kaiser M.D. [address] [place] [address] 03/05/2024 9:15 AM CDT Appointment Department of Radiology in [address] [address] Marilin Kaiser M.D. [address] [place] [address] 04/15/2024 1:15 PM CDT Appointment Department of Radiology in [address] [address] Marilin Kaiser M.D. [address] [place] [address] 04/15/2024 1:30 PM CDT Appointment Department of Radiology in [address] [address] Marilin Kaiser M.D. [address] [place] [address] 04/16/2024 9:15 AM CDT Appointment Department of Radiology in [address] [address] Marilin Kaiser M.D. [address] [place] [address] 05/27/2024 12:45 PM CDT Appointment Department of Radiology in [address] [address] Marilin Kaiser M.D. [address] [place] [address] 05/27/2024 1:00 PM CDT Appointment Department of Radiology in [place] [address] [place] [address] Marilin Kaiser M.D. [address] [place] [address] 05/28/2024 9:15 AM CDT Appointment Department of Radiology in [address] [address] Marilin Kaiser M.D. [address] [place] [address] 07/08/2024 1:15 PM [employer] Appointment Department of Radiology in [address] [address] Marilin Kaiser M.D. [address] [place] [address] 07/08/2024 1:30 PM [employer] Appointment Department of Radiology in [address] [address] Marilin Kaiser M.D. [address] [place] [phone] 07/09/2024 9:45 AM [employer] Appointment Department of Radiology in [address] [address] Marilin Kaiser M.D. [address] [place] [address] 08/19/2024 12:45 PM [employer] Appointment Department of Radiology in [address] [address] Marilin Kaiser M.D. [address] [place] [address] 08/19/2024 1:00 PM [employer] Appointment Department of Radiology in [place], [place] [address] [place] [address] Marilin Kaiser M.D. [address] [place] [address] 08/20/2024 9:45 AM [employer] Appointment Department of Radiology in [place] [address] [place] [address] Marilin Kaiser M.D. [address] [place] [address] documented as of this encounter Procedures Procedure [...] vertex to the thighs with low dose, ihp-kzhxezpoteim-aehynodgr CT for attenuation correction and anatomic localization,and [...] findings on the noncontrast low-dose CT: Right urtnkNaio-Y-Sxei tip at the low SVC. Stable 3 [...] (HCC) documented in this encounter Care Teams Campus Safety Officer Relationship Specialty Start Date End Date Elsewhere, Pcp PCP - General Family Medicine 08/31/20 documented as of this encounter
--- OUTSIDE RECORDS SUMMARY | 2024-02-17 20:49 | XMS_ITS | Encounter Summary ---
Author Organization [facility] Address [address] [place] [address] Care Team Providers Care Psych Sales Specialist Name Role Phone Elsewhere, Pcp Primary Care Provider Unavailabl e Reason for Referral * Outpatient (Routine) - Pending Review Specialty Diagnoses / Procedures Referred By Morenitaac t Referred To Contact Radiology Diagnoses Primary Malignant Neoplasm Of Prostate (HCC) Marilin Kaiser M.D. [address] [place] [address] [facility] Referral ID Status Reason Start Date Expiration Date V isits Requested Visits Authorized [id number] Pending Review 12/27/2023 06/27/2025 1 1 Reason for Visit * Outpatient (Routine) - Pending Review Specialty Diagnoses / Procedures Referred By Javon lopez Referred To Contact Radiology Diagnoses Primary Malignant Neoplasm Of Prostate (HCC) Marilin Kaiser M.D. [address] [place] [address] [facility] Referral ID Status Reason Start Date Expiration Date V isits Requested Visits Authorized [id number] Pending Review 12/27/2023 06/27/2025 1 1 Encounter Details Date Type Department Care Team (Latest Contact Info) Description 01/22/2024 11:46 AM CDT - 01/22/2024 2:02 PM CDT Hospital Encounter Department of Radiology in [place], [place] [address] [place] [address] Marilin Kaiser M.D. [address] [place] [phone] Miguelito Booth P.A.-C. [address] [place] [address] Primary Malignant Neoplasm Of Prostate (HCC) Social [...] any clubs o r organizations such as tenriism groups, unions, fraternal or athletic groups, or [...] heating? Not hard at all 01/24/2023 [facility] of Occupat ional Health [...] Master's degree (e.g., MA, MS, Gail, MEd, EPOXY SPECIALIST, JAMIE) 12/21/2021 Sex and Gender Information [...] CDT SUBJECTIVE REFERRING PROVIDER Marilin Kaiser M.D. [facility] [address] NUCLEAR MEDICINE PROVIDER Miguelito Booth P.A.-C. Ismael [...] Patient follows with a Dr. Rodrigues at [facility]. His next follow up appointment is [...] the care of Dr. Rachael Sanford at [facility] in [place], [place]. 01/2011 - Biological/Targeted/Hormone Therapy Lupron 30 [...] and Procedures Cryotherapy with Dr. Yu at [facility]. The patient underwent placement of 13 [...] Critical Imaging PSMA PET scan at [facility] demonstrated radiotracer positive lesion in the [...] PROSTATE, RIGHT, NEEDLE BIOPSY: 1. Prostatic adenocarcinoma, Cedar score 4 + 5 = 9 (ISUP [...] Common Hereditary Cancers Panel (47 genes) via [employer]. See test report fordetails regarding genes analyzed and testing methodologies. RESULT: NEGATIVE FOR CLINICALLY ACTIONABLE VARIANTS No clinically actionable (pathogenic or likely pathogenic) variants were detected in the genes analyzed. One variant of uncertain significance was detected: POLE c.2134C>G (p.[id number]). No laboratory classifies this variant as clinically-actionable [...] Pluvicto therapy today. Labs were done at [facility] and the results are located [...] Patient follows with a Dr. Rodrigues at [facility]. His next follow up appointment is [...] physicians, nurse practitioners/physician assistants, nurses and other product support consultant that specialize in this treatment. Also, reviewed the importance of maintaining ongoing care with [place] and local oncology team, as well as [...] PM CDT Appointment Department of Radiology in [place], [place] [address] [place] [address] Marilin Kaiser M.D. [address] [place] [address] 03/04/2024 1:30 PM CDT Appointment Department of Radiology in [address] [address] Marilin Kaiser M.D. [address] [place] [address] 03/05/2024 9:15 AM CDT Appointment Department of Radiology in [address] [address] Marilin Kaiser M.D. [address] [place] [address] 04/15/2024 1:15 PM CDT Appointment Department of Radiology in [address] [address] Marilin Kaiser M.D. [address] [place] [address] 04/15/2024 1:30 PM CDT Appointment Department of Radiology in [address] [address] Marilin Kaiser M.D. [address] [place] [address] 04/16/2024 9:15 AM CDT Appointment Department of Radiology in [place], [place] [address] [place] [address] aMrilin Kaiser M.D. [address] [place] [address] 05/27/2024 12:45 PM CDT Appointment Department of Radiology in [address] [address] Marilin Kaiser M.D. [address] [place] [address] 05/27/2024 1:00 PM CDT Appointment Department of Radiology in [address] [address] Marilin Kaiser M.D. [address] [place] [address] 05/28/2024 9:15 AM CDT Appointment Department of Radiology in [address] [address] Marilin Kaiser M.D. [address] [place] [address] 07/08/2024 1:15 PM LATHE MECHANIC Appointment Department of Radiology in [address] [address] Marilin Kaiser M.D. [address] [place] [address] 07/08/2024 1:30 PM LATHE MECHANIC Appointment Department of Radiology in [address] [address] Marilin Kaiser M.D. [address] [place] [address] 07/09/2024 9:45 AM LATHE MECHANIC Appointment Department of Radiology in [place], [place] [address] [place] [address] Marilin Kaiser M.D. [address] [place] [address] 08/19/2024 12:45 PM LATHE MECHANIC Appointment Department of Radiology in [address] [address] Marilin Kaiser M.D. [address] [place] [address] 08/19/2024 1:00 PM LATHE MECHANIC Appointment Department of Radiology in [address] [address] Marilin Kaiser M.D. [address] [place] [address] 08/20/2024 9:45 AM LATHE MECHANIC Appointment Department of Radiology in [address] [address] Marilin Kaiser M.D. [address] [place] [address] Scheduled Referrals Name Type Priority Associated Diagnoses Order Schedule Radiology - Nuclear medicine consult (clinic) Outpatient Referral Routine Primary Malignant Neoplasm Of Prostate (HCC) Once for 1 Occurrences starting 01/22/2024 until 01/22/2024 documented as of this encounter Visit Diagnoses Diagnosis Primary Malignant Neoplasm Of Prostate (HCC) documented in this encounter Care Teams Psych Sales Specialist Relationship Specialty Start Date End Date Elsewhere, Pcp PCP - General Family Medicine 08/31/20 documented as of this encounter
--- OUTSIDE RECORDS SUMMARY | 2024-02-17 20:49 | XMS_ITS | Referral Summary ---
Author Organization [facility] Address [address] [place] [address] Care Team Providers Care Department Store Manager Name Role Phone Elsewhere, Pcp Primary Care Provider Unavailabl e Source Comments Patient records contain information from all sites at [facility]. For routine questions regarding patient records, call [phone] during business hours, M-F 8:00 AM - 5:00 PM Central Time. Record requests for emergency care only can be directed to [phone] at any time.[facility] Encounters Date Type Department Care Team Description 02/05/2024 Clinical Communication Department of Radiology in [place], [place] [address] [place] [address] Peterson Rodas 01/27/2024 Clinical Communication Department of Radiology, [facility] in [place], [place] [address] [place] [address] Elizabeth Barragan R.N. 01/23/2024 9:03 AM CDT - 01/23/2024 11:59 PM CDT Hospital Encounter Department of Radiology in [address] [address] Marilin Kaiser M.D. Primary Malignant Neoplasm Of Prostate (HCC) Discharge Disposition: Home or Self Care 01/22/2024 11:46 AM CDT - 01/22/2024 11:59 PM CDT Hospital Encounter Department of Radiology in [place], [place] [address] [place] [address] Marilin Kaiser M.D. Primary Malignant Neoplasm Of Prostate (HCC) Discharge Disposition: Home or Self Care 01/22/2024 11:46 AM CDT - 01/22/2024 2:02 PM CDT Hospital Encounter Department of Radiology in [place], [place] [address] [place] [address] Marilin Kaiser M.D. Dick, Michael D, P.A.-C. Primary Malignant Neoplasm Of Prostate (HCC) 01/02/2024 Clinical Communication Department of Radiology in [place], [place] [address] [place] [address] Peterson Rodas 01/02/2024 11:55 AM CDT Ancillary Procedure Department of Radiology in [place], [place] [address] [place] [address] Evelina Ontiveros APRN, C.N.P., D.N.P. Primary Malignant Neoplasm Of Prostate (HCC); Secondary Malignant Neoplasm Bone (HCC) 01/02/2024 Orders Only Department of Radiology in [place], [place] [address] [place] [address] Evelina Ontiveros APRN, C.N.P., D.N.P. Primary Malignant Neoplasm Of Prostate (HCC) (Primary Dx); Secondary Malignant Neoplasm Bone (HCC) 12/27/2023 Documentation Department of Radiology in [place], [place] [address] [place] [address] Evelina Ontiveros APRN, C.N.P., D.N.P. 12/27/2023 Orders Only Department of Oncology in [place], [place] [address] [place] [address] Renetta Tan RTony Primary Malignant Neoplasm Of Prostate (HCC) (Primary Dx) 12/26/2023 Orders Only Department of Oncology in [place], [place] [address] [place] [address] Renetta Tan, R.Cande. Secondary Malignant Neoplasm Bone (HCC) (Primary Dx); Primary Malignant Neoplasm Of Prostate (HCC) 12/26/2023 Orders Only Department of Oncology in [place], [place] [address] [place] [address] Marilin Kaiser M.D. 12/26/2023 Orders Only Department of Oncology in [place], [place] [address] [place] [address] Marilin Kaiser M.D. 12/24/2023 10:33 AM CDT - 12/24/2023 11:59 PM CDT Hospital Encounter Department of Radiology in [place], [place] [address] [place] [address] Marilin Kaiser M.D. Primary Malignant Neoplasm Of Prostate (HCC) Discharge Disposition: Home or Self Care 12/18/2023 Orders Only Department of Oncology in [place], [place] [address] [place] [address] Marilin Kaiser M.D. Primary Malignant Neoplasm Of [...] often do you attend chur ch or mandaeism services? Never 12/21/2021 Do you belong to any clubs o r organizations such as yarsani groups, unions, fraternal or athletic groups, or [...] and heating? Not hard at all 01/24/2023 [facility] [place] of Occupat ional Health - Occupational Stress [...] your living situation today? I have a [facility] place to live 01/24/2023 Education Answer Date Recorded What is the highest level of school you have completed or the highest degree you have received? Master's degree (e.g., LETTY, MS, Gail, MEd, MAT CUTTER, JAMIE) 12/21/2021 Sex and Gender Information Value Date Recorded Sex Assigned at Male 12/21/2021 7:22 AM CDT Gender Identity Male 12/21/2021 7:22 AM CDT Sexual Orientation Straight 12/21/2021 7: 22 AM CDT Last Filed Vital Signs Vital Sign Reading Time Taken Comments Blood Pressure 123/65 01/22/2024 1:59 PM CDT Pulse 72 01/22/2024 1:59 PM CDT Temperature 36.1 ??C (97 ??F) 08/01/2023 11:[address] ABSTRACTOR Respiratory Rate - - Oxygen Saturation 99% 01/22/2024 1:59 PM CDT Inhaled Oxygen Concentration - - Weight 92.7 kg (204 lb 5.9 oz) 08/01/2023 11:[address] ABSTRACTOR Height - - Body Mass Index - - Plan of Treatment Upcoming Encounters Date Type Department Care Team (Late st Contact Info) Description 03/04/2024 1:15 PM CDT Appointment Department of Radiology in [address] [address] Marilin Kaiser M.D. [address] [place] [address] 03/04/2024 1:30 PM CDT Appointment Department of Radiology in [address] [address] Marilin Kaiser M.D. [address] [place] [address] 03/05/2024 9:15 AM CDT Appointment Department of Radiology in [address] [address] Marilin Kaiser M.D. [address] [place] [address] 04/15/2024 1:15 PM CDT Appointment Department of Radiology in [place] [address] [place] [address] Marilin Kaiser M.D. [address] [place] [address] 04/15/2024 1:30 PM CDT Appointment Department of Radiology in [address] [address] Marilin Kaiser M.D. [address] [place] [address] 04/16/2024 9:15 AM CDT Appointment Department of Radiology in [address] [address] Marilin Kaiser M.D. [address] [place] [address] 05/27/2024 12:45 PM CDT Appointment Department of Radiology in [address] [address] Marilin Kaiser M.D. [address] [place] [address] 05/27/2024 1:00 PM CDT Appointment Department of Radiology in [address] [address] Marilin Kaiser M.D. [address] [place] [address] 05/28/2024 9:15 AM CDT Appointment Department of Radiology in [address] [address] Marilin Kaiser M.D. [address] [place] [address] 07/08/2024 1:[address] ABSTRACTOR Appointment Department of Radiology in [address] [address] Marilin Kaiser M.D. [address] [place] [address] 07/08/2024 1:[address] ABSTRACTOR Appointment Department of Radiology in [address] [address] Marilin Kaiser M.D. [address] [place] [address] 07/09/2024 9:[address] ABSTRACTOR Appointment Department of Radiology in [address] [address] Marilin Kaiser M.D. [address] [place] [address] 08/19/2024 12:[address] ABSTRACTOR Appointment Department of Radiology in [address] [address] Marilin Kaiser M.D. [address] [place] [address] 08/19/2024 1:[address] ABSTRACTOR Appointment Department of Radiology in [address] [address] Marilin Kaiser M.D. [address] [place] [facility] [place] [address] 08/20/2024 9:[address] ABSTRACTOR Appointment Department of Radiology in [place], [place] [address] [place] [address] Marilin Kaiser M.D. [address] [place] [facility] [place] [address] Procedures Procedure Name Priority Date/Time [...] METABOLIC PANEL, S/P Routine 09/13/2023 2:[address] ABDOMEN PELVIS WITH IV CONTRAST RAD [...] vertex to the thighs with low dose, qbc-gjbmvylxvrgs-hbxvujwtv CT for attenuation correction and anatomic localization,and [...] findings on the noncontrast low-dose CT: Right wjwtxHeca-B-Kmib tip at the low SVC. Stable 3 [...] Iris-177 PSMA cycle 1. Marilin Kaiser M.D. [facility] PROCEDURES * Interpretation of Outside MR Spine [...] Recently Relevant to Health Maintenance Care Teams Department Store Manager Relationship Specialty Start Date End Date Elsewhere, Pcp PCP - General Family Medicine 08/31/20
--- OUTSIDE RECORDS SUMMARY | 2024-02-17 20:49 | XMS_ITS ---
Author Organization [facility] Address [address] [place] [address] Care Team Providers Care Phone Representative Name Role Phone Unavailable Unavailable Unavailable Surgery Details Not on file Complications Check Surgery Details section. Procedure Estimated Blood Loss Check Surgery Details section. Procedure Findings Check Surgery Details section. Procedure Specimens Taken Check Surgery Details section.
--- OUTSIDE RECORDS SUMMARY | 2024-02-17 20:49 | XMS_ITS | Encounter Summary ---
Author Organization [facility] Address [address] [place] [address] Care Team Providers Care Reliner Name Role Phone Elsewhere, Pcp Primary Care Provider Unavailabl e Encounter Details Date Type Department Care Team (Late st Contact Info) Description 02/05/2024 Clinical Communication Department of Radiology in [place], [place] [address] [place] [address] Peterson Rodas Social History Tobacco Use Types [...] often do you attend chur ch or zoroastrianism services? Never 12/21/2021 Do you belong to [...] and heating? Not hard at all 01/24/2023 [facility] of Occupat ional Health - Occupational [...] your living situation today? I have a [facility] place to live 01/24/2023 Education Answer Date Recorded What is the highest level of school you have completed or the highest degree you have received? Master's degree (e.g., MA, MS, Gail, MEd, SHUTTLELESS LOOM WEAVER, JAMIE) 12/21/2021 Sex and Gender Information Value Date Recorded Sex Assigned at Male 12/21/2021 7:22 AM CDT Gender Identity Male 12/21/2021 7:22 AM CDT Sexual Orientation Straight 12/21/2021 7: 22 AM CDT documented as of this encounter Plan of Treatment Upcoming Encounters Date Type Department Care Team (Late st Contact Info) Description 03/04/2024 1:15 PM CDT Appointment Department of Radiology in [address] [address] Marilin Kaiser M.D. [address] [place] [address] 03/04/2024 1:30 PM CDT Appointment Department of Radiology in [address] [address] Marilin Kaiser M.D. [address] [place] [address] 03/05/2024 9:15 AM CDT Appointment Department of Radiology in [address] [address] Marilin Kaiser M.D. [address] [place] [address] 04/15/2024 1:15 PM CDT Appointment Department of Radiology in [address] [address] Marilin Kaiser M.D. [address] [place] [address] 04/15/2024 1:30 PM CDT Appointment Department of Radiology in [address] [address] Marilin Kaiser M.D. [address] [place] [address] 04/16/2024 9:15 AM CDT Appointment Department of Radiology in [address] [address] Marilin Kaiser M.D. [address] [place] [address] 05/27/2024 12:45 PM CDT Appointment Department of Radiology in [address] [address] Marilin Kaiser M.D. [address] [place] [address] 05/27/2024 1:00 PM CDT Appointment Department of Radiology in [address] [address] Marilin Kaiser M.D. [address] [place] [address] 05/28/2024 9:15 AM CDT Appointment Department of Radiology in [address] [address] Marilin Kaiser M.D. [address] [place] [address] 07/08/2024 1:15 PM PHOTOGRAPHY AND PRINTS CURATOR Appointment Department of Radiology in [address] [address] Marilin Kaiser M.D. [address] [place] [address] 07/08/2024 1:30 PM PHOTOGRAPHY AND PRINTS CURATOR Appointment Department of Radiology in [address] [address] Marilin Kaiser M.D. [address] [place] [address] 07/09/2024 9:45 AM PHOTOGRAPHY AND PRINTS CURATOR Appointment Department of Radiology in [address] [address] Marilin Kaiser M.D. [address] [place] [address] 08/19/2024 12:45 PM PHOTOGRAPHY AND PRINTS CURATOR Appointment Department of Radiology in [address] [address] Marilin Kaiser M.D. [address] [place] [address] 08/19/2024 1:00 PM PHOTOGRAPHY AND PRINTS CURATOR Appointment Department of Radiology in [address] [address] Marilin Kaiser M.D. [address] [facility] [place] [address] 08/20/2024 9:45 AM PHOTOGRAPHY AND PRINTS CURATOR Appointment Department of Radiology in [place], [place] [address] [place] [address] Marilin Kaiser M.D. [address] [facility] [place] [address] documented as of this encounter Visit Diagnoses Not on filedocumented in this encounter Care Teams Reliner Relationship Specialty Start Date End Date Elsewhere, Pcp PCP - General Family Medicine 08/31/20 documented as of this encounter
--- OUTSIDE RECORDS SUMMARY | 2024-02-17 20:49 | XMS_ITS | Clinical Summary ---
Author Organization [facility] Address [address] [place] [address] Care Team Providers Care White Shoe Ragger Name Role Phone Elsewhere, Pcp Primary Care Provider Unavailabl e Source Comments Patient records contain information from all sites at [facility]. For routine questions regarding patient records, call [phone] during business hours, M-F 8:00 AM - 5:00 PM Central Time. Record requests for emergency care only can be directed to [phone] at any time.[facility] Allergies Active Allergy Reactions Criticality Noted Date [...] IIA(T1c, N0, M0, PSA: Less than 10, [place] 7) - Unsigned Encounters Date Type Department Care Team Description 02/05/2024 Clinical Communication Department of Radiology in [place], [place] [address] [place] [address] Peterson Rodas 01/27/2024 Clinical Communication Department of Radiology, [facility] in [place], [place] [address] [place] [address] Elizabeth Barragan R.N. 01/23/2024 9:03 AM CDT - 01/23/2024 11:59 PM CDT Hospital Encounter Department of Radiology in [address] [address] Marilin Kaiser M.D. Primary Malignant Neoplasm Of Prostate (HCC) Discharge Disposition: Home or Self Care 01/22/2024 11:46 AM CDT - 01/22/2024 11:59 PM CDT Hospital Encounter Department of Radiology in [address] [address] Marilin Kaiser M.D. Primary Malignant Neoplasm Of Prostate (HCC) Discharge Disposition: Home or Self Care 01/22/2024 11:46 AM CDT - 01/22/2024 2:02 PM CDT Hospital Encounter Department of Radiology in [address] [address] Marilin Kaiser M.D. Dick, Michael D, P.A.-C. Primary Malignant Neoplasm Of Prostate (HCC) 01/02/2024 11:55 AM CDT Ancillary Procedure Department of Radiology in [place], [place] [address] [place] [address] Evelina Ontiveros APRN, C.N.P., D.N.P. Primary Malignant Neoplasm Of Prostate (HCC); Secondary Malignant Neoplasm Bone (HCC) 01/02/2024 Clinical Communication Department of Radiology in [place], [place] [address] [place] [address] Peterson Rodas 01/02/2024 Orders Only Department of Radiology in [place], [place] [address] [place] [address] Evelina Ontiveros APRN C.N.PLanden, D.N.P. Primary Malignant Neoplasm Of Prostate (HCC) (Primary Dx); Secondary Malignant Neoplasm Bone (HCC) 12/27/2023 Documentation Department of Radiology in [place], [place] [address] [place] [address] Evelina Ontiveros APRN C.N.P., D.N.P. 12/27/2023 Orders Only Department of Oncology in [place], [place] [address] [place] [address] Renetta Tan, R.NLanden Primary Malignant Neoplasm Of Prostate (HCC) (Primary Dx) 12/26/2023 Orders Only Department of Oncology in [place], [place] [address], [place] [address] Renetta Tan, RLandenNLanden Secondary Malignant Neoplasm Bone (HCC) (Primary Dx); Primary Malignant Neoplasm Of Prostate (HCC) 12/26/2023 Orders Only Department of Oncology in [place], [place] [address] [place] [address] Marilin Kaiser M.D. 12/26/2023 Orders Only Department of Oncology in [place], [place] [address] [place] [address] Marilin Kaiser M.D. 12/24/2023 10:33 AM CDT - 12/24/2023 11:59 PM CDT Hospital Encounter Department of Radiology in [place], [place] [address], [place] [address] Marilin Kaiser M.D. Primary Malignant Neoplasm Of Prostate (HCC) Discharge Disposition: Home or Self Care 12/18/2023 Orders Only Department of Oncology in [place], [place] [address] [place] [address] Marilin Kaiser M.D. Primary Malignant Neoplasm Of [...] often do you attend chur ch or anabaptist services? Never 12/21/2021 Do you belong to any clubs o r organizations such as baptism groups, unions, fraternal or athletic groups, or [...] Master's degree (e.g., MA, MS, Gail, MEd, ATMOSPHERIC PHYSICS PROFESSOR, JAMIE) 12/21/2021 Sex and Gender Information Value Date Recorded Sex Assigned at Male 12/21/2021 7:22 AM CDT Gender Identity Male 12/21/2021 7:22 AM CDT Sexual Orientation Straight 12/21/2021 7: 22 AM CDT Last Filed Vital Signs Vital Sign Reading Time Taken Comments Blood Pressure 123/65 01/22/2024 1:59 PM CDT Pulse 72 01/22/2024 1:59 PM CDT Temperature 36.1 ??C (97 ??F) 08/01/2023 11:36 AM LENS GAUGER Respiratory Rate - - Oxygen Saturation 99% 01/22/2024 1:59 PM CDT Inhaled Oxygen Concentration - - Weight 92.7 kg (204 lb 5.9 oz) 08/01/2023 11:36 AM LENS GAUGER Height - - Body Mass Index - - Plan of Treatment Upcoming Encounters Date Type Department Care Team (Late st Contact Info) Description 03/04/2024 1:15 PM CDT Appointment Department of Radiology in [place], [place] [address] [place] [address] Marilin Kaiser M.D. [address] [place] [address] 03/04/2024 1:30 PM CDT Appointment Department of Radiology in [place], [place] [address] [place] [address] Marilin Kaiser M.D. [address] [place] [address] 03/05/2024 9:15 AM CDT Appointment Department of Radiology in [address] [address] Marilin Kaiser M.D. [address] [place] [address] 04/15/2024 1:15 PM CDT Appointment Department of Radiology in [address] [address] Marilin Kaiser M.D. [address] [place] [address] 04/15/2024 1:30 PM CDT Appointment Department of Radiology in [address] [address] Marilin Kaiser M.D. [address] [place] [address] 04/16/2024 9:15 AM CDT Appointment Department of Radiology in [address] [address] Marilin Kaiser M.D. [address] [place] [address] 05/27/2024 12:45 PM CDT Appointment Department of Radiology in [address] [address] Marilin Kaiser M.D. [address] [place] [address] 05/27/2024 1:00 PM CDT Appointment Department of Radiology in [address] [address] Marilin Kaiser M.D. [address] [place] [address] 05/28/2024 9:15 AM CDT Appointment Department of Radiology in [address] [address] Marilin Kaiser M.D. [address] [place] [address] 07/08/2024 1:15 PM LENS GAUGER Appointment Department of Radiology in [address] [address] Marilin Kaiser M.D. [address] [place] [address] 07/08/2024 1:30 PM LENS GAUGER Appointment Department of Radiology in [address] [address] Marilin Kaiser M.D. [address] [place] [address] 07/09/2024 9:45 AM LENS GAUGER Appointment Department of Radiology in [address] [address] Marilin Kaiser M.D. [address] [place] [address] 08/19/2024 12:45 PM LENS GAUGER Appointment Department of Radiology in [address] [address] Marilin Kaiser M.D. [address] [place] [address] 08/19/2024 1:00 PM LENS GAUGER Appointment Department of Radiology in [place], [place] [address] [place] [address] Marilin Kaiser M.D. [address] [place] [address] 08/20/2024 9:45 AM LENS GAUGER Appointment Department of Radiology in [place], [place] [address] [place] [address] Marilin Kaiser M.D. [address] [place] [address] Health Maintenance Due Date Last Done Comments [...] METABOLIC PANEL, S/P Routine 09/13/2023 2:[address] ABDOMEN PELVIS WITH IV CONTRAST RAD [...] vertex to the thighs with low dose, inw-geiikewhvxhi-xmtpvqede CT for attenuation correction and anatomic localization,and [...] findings on the noncontrast low-dose CT: Right vciuxMaru-Z-Jxws tip at the low SVC. Stable 3 [...] PSMA expression score: 3 Marilin Kaiser M.D. [facility] * NM Therapy Iris-177 PSMA [...] Iris-177 PSMA cycle 1. Marilin Kaiser M.D. [facility] [place] * Interpretation of Outside MR [...] Recently Relevant to Health Maintenance Care Teams White Shoe Ragger Relationship Specialty Start Date End Date Elsewhere, Pcp PCP - General Family Medicine 08/31/20
--- OUTSIDE RECORDS SUMMARY | 2024-02-17 20:49 | XMS_ITS | Encounter Summary ---
Author Organization [facility] Address [address] [place] [address] Care Team Providers Care Clinical Programmer Name Role Phone Elsewhere, Pcp Primary Care Provider Unavailabl e Reason for Referral * Outpatient (Routine) - Authorized Specialty Diagnoses / Procedures Referred By Contac t Referred To Contact Diagnoses Primary Malignant Neoplasm Of Prostate (HCC) Procedures NM Therapy Iris-177 PSMA Marilin Kaiser M.D. [address] [place] [address] [facility] Referral ID Status Reason Start Date Expiration Date V isits Requested Visits Authorized [id number] Authorized 12/27/2023 12/26/2024 8 8 Reason for Visit * Outpatient (Routine) - Authorized Specialty Diagnoses / Procedures Referred By Javon lopez Referred To Contact Diagnoses Primary Malignant Neoplasm Of Prostate (HCC) Procedures NM Therapy Iris-177 PSMA Marilin Kaiser M.D. [address] [place] [address] [facility] Referral ID Status Reason Start Date Expiration Date V isits Requested Visits Authorized [id number] Authorized 12/27/2023 12/26/2024 8 8 Encounter Details Date Type Department Care Team (Latest Contact Info) Description 01/22/2024 11:46 AM CDT - 01/22/2024 11:59 PM CDT Hospital Encounter Department of Radiology in [place], [place] [address] [place] [address] Marilin Kaiser M.D. [address] [place] [address] Primary Malignant Neoplasm Of Prostate (HCC) Discharge [...] How often do you attend chur or cheondoism services? Never 12/21/2021 Do you belong to any clubs o r organizations such as evangelical groups, unions, fraternal or athletic groups, or [...] and heating? Not hard at all 01/24/2023 [facility] Occupational Stress Questionnaire Answer Date [...] Master's degree (e.g., MA, MS, Gail, MEd, TRADEMARK ATTORNEY, JAMIE) 12/21/2021 Sex and Gender Information Value [...] PM CDT Appointment Department of Radiology in [address] [address] Marilin Kaiser M.D. [address] [place] [address] 03/04/2024 1:30 PM CDT Appointment Department of Radiology in [address] [address] Marilin Kaiser M.D. [address] [place] [address] 03/05/2024 9:15 AM CDT Appointment Department of Radiology in [address] [address] Marilin Kaiser M.D. [address] [place] [address] 04/15/2024 1:15 PM CDT Appointment Department of Radiology in [address] [address] Marilin Kaiser M.D. [address] [place] [address] 04/15/2024 1:30 PM CDT Appointment Department of Radiology in [address] [address] Marilin Kaiser M.D. [address] [place] [address] 04/16/2024 9:15 AM CDT Appointment Department of Radiology in [place], [place] [address] [place] [address] Marilin Kaiser M.D. [address] [place] [address] 05/27/2024 12:45 PM CDT Appointment Department of Radiology in [address] [address] Marilin Kaiser M.D. [address] [place] [address] 05/27/2024 1:00 PM CDT Appointment Department of Radiology in [address] [address] Marilin Kaiser M.D. [address] [place] [address] 05/28/2024 9:15 AM CDT Appointment Department of Radiology in [address] [address] Marilin Kaiser M.D. [address] [place] [address] 07/08/2024 1:15 PM REAL ESTATE PORTFOLIO MANAGER Appointment Department of Radiology in [address] [address] Marilin Kaiser M.D. [address] [place] [address] 07/08/2024 1:30 PM REAL ESTATE PORTFOLIO MANAGER Appointment Department of Radiology in [address] [address] Marilin Kaiser M.D. [address] [place] [address] 07/09/2024 9:45 AM REAL ESTATE PORTFOLIO MANAGER Appointment Department of Radiology in [place] [address] [place] [address] Marilin Kaiser M.D. [address] [place] [address] 08/19/2024 12:45 PM REAL ESTATE PORTFOLIO MANAGER Appointment Department of Radiology in [address] [address] Marilin Kaiser M.D. [address] [place] [address] 08/19/2024 1:00 PM REAL ESTATE PORTFOLIO MANAGER Appointment Department of Radiology in [address] [address] Marilin Kaiser M.D. [address] [place] [address] 08/20/2024 9:45 AM REAL ESTATE PORTFOLIO MANAGER Appointment Department of Radiology in [address] [address] Marilin Kaiser M.D. [address] [place] [address] documented as of this encounter Procedures Procedure [...] mL/hr documented in this encounter Care Teams Clinical Programmer Relationship Specialty Start Date End Date Elsewhere, Pcp PCP - General Family Medicine 08/31/20 documented as of this encounter
--- OUTSIDE RECORDS SUMMARY | 2024-02-17 20:49 | XMS_ITS | Encounter Summary ---
Author Organization [facility] Address [address] [place] [address] Care Team Providers Care Copper Plate Printer Name Role Phone Elsewhere, Pcp Primary Care Provider Unavailabl e Encounter Details Date Type Department Care Team (Late st Contact Info) Description 01/27/2024 Clinical Communication Department of Radiology, [facility], in [place], [place] [address] [place] [address] Elizabeth Barragan R.N. [address] [place] [address] Social History Tobacco Use Types Packs/Day Years [...] and heating? Not hard at all 01/24/2023 [facility] of Occupat ional Health - Occupational Stress [...] your living situation today? I have a [facility] place to live 01/24/2023 Education Answer Date Recorded What is the highest level of school you have completed or the highest degree you have received? Master's degree (e.g., MA, MS, Gail, MEd, ELECTRODE CLEANER, JAMIE) 12/21/2021 Sex and Gender Information Value [...] CDT Appointment Department of Radiology in [address] [address] Marilin Kaiser M.D. [address] [place] [address] 03/04/2024 1:30 PM CDT Appointment Department of Radiology in [address] [address] Marilin Kaiser M.D. [address] [place] [address] 03/05/2024 9:15 AM CDT Appointment Department of Radiology in [address] [address] Marilin Kaiser M.D. [address] [place] [address] 04/15/2024 1:15 PM CDT Appointment Department of Radiology in [address] [address] Marilin Kaiser M.D. [address] [place] [address] 04/15/2024 1:30 PM CDT Appointment Department of Radiology in [address] [address] Marilin Kaiser M.D. [address] [place] [address] 04/16/2024 9:15 AM CDT Appointment Department of Radiology in [address] [address] Marilin Kaiser M.D. [address] [place] [address] 05/27/2024 12:45 PM CDT Appointment Department of Radiology in [place] [address] [place] [address] Marilin Kaiser M.D. [address] [place] [address] 05/27/2024 1:00 PM CDT Appointment Department of Radiology in [address] [address] Marilin Kaiser M.D. [address] [place] [address] 05/28/2024 9:15 AM CDT Appointment Department of Radiology in [address] [address] Marilin Kaiser M.D. [address] [place] [address] 07/08/2024 1:15 PM BUSINESS DATABASE ANALYST Appointment Department of Radiology in [address] [address] Marilin Kaiser M.D. [address] [place] [address] 07/08/2024 1:30 PM BUSINESS DATABASE ANALYST Appointment Department of Radiology in [address] [address] Marilin Kaiser M.D. [address] [place] [address] 07/09/2024 9:45 AM BUSINESS DATABASE ANALYST Appointment Department of Radiology in [place], [place] [address] [place] [address] Marilin Kaiser M.D. [address] [place] [address] 08/19/2024 12:45 PM BUSINESS DATABASE ANALYST Appointment Department of Radiology in [place], [place] [address] [place] [address] Marilin Kaiser M.D. [address] [place] [address] 08/19/2024 1:00 PM BUSINESS DATABASE ANALYST Appointment Department of Radiology in [place] [address] [place] [address] Marilin Kaiser M.D. [address] [place] [address] 08/20/2024 9:45 AM BUSINESS DATABASE ANALYST Appointment Department of Radiology in [place] [address] [place] [address] Marilin Kaiser M.D. [address] [place] [address] documented as of this encounter Visit Diagnoses Not on filedocumented in this encounter Care Teams Copper Plate Printer Relationship Specialty Start Date End Date Elsewhere, Pcp PCP - General Family Medicine 08/31/20 documented as of this encounter
--- OUTSIDE RECORDS SUMMARY | 2024-02-17 20:49 | XMS_ITS ---
Author Organization [facility] Address [address] [place] [address] Care Team Providers Care Health Science Specialist Name Role Phone Elsewhere, Pcp Primary [...] Treated Prescribed Fraction Dose Prescribed Total Dose [id number] 08/01/2023 8 1 of 1 2,000 cGy 2,000 cGy [id number] 07/31/2023 7 3 of 3 1,000 cGy 3,000 cG y [id number] 07/30/2023 6 3 of 3 1,000 cGy 3,000 cG y Reference Point Last Treated On Elapsed Days Session Dose Total Dose [id number] 08/01/2023 8 2,000 cGy 2,000 cGy [id number] HumR 07/31/2023 7 1,000 cGy 3,000 cGy [id number] HumL 07/30/2023 6 1,000 cGy 3,000 cGy
[2024-02-17 20:50] VITALS: PULSE 104; O2SAT 98
--- OUTSIDE RECORDS SUMMARY | 2024-02-17 20:50 | XMS_ITS | Referral Summary ---
Author Organization [place] Address [address] [place] [address] Care Team Providers Care Track Equipment Operator Name Role Phone Rvias Torres MD Primary Care Provider [phone] Allergies Active Allergy Reactions Criticality Noted Date [...] 3 days 10/22/2022 Active Cholecalciferol 250 MCG (39117 UT) CAPS 01/17/2022 Active lisinopril (ZESTRIL) 20 [...] of Treatment Not on file Care Teams Track Equipment Operator Relationship Specialty Start Date End Date Rivas Torres MD PCP - General Family Practice 04/27/19
--- OUTSIDE RECORDS SUMMARY | 2024-02-17 20:50 | XMS_ITS | Encounter Summary ---
Author Organization [facility] Address [address] [place] [address] Care Team Providers Care Shipping And Receiving Supervisor Name Role Phone Elsewhere, Pcp Primary Care Provider Unavailabl e Reason for Referral * MRI/CAT/PET Scan (Routine) - Closed Specialty Diagnoses / Procedures Referred By Contac t Referred To Contact Diagnoses Primary Malignant Neoplasm Of Prostate (HCC) Procedures PET CT Skull to Thigh PSMA Marilin Kaiser M.D. [address] [place] [address] [facility] Region Referral ID Status Reason Start Date Expiration Date Visits Re quested Visits Authorized [id number] Closed 12/18/2023 12/17/2024 1 1 Encounter Details Date Type Department Care Team (Late st Contact Info) Description 12/18/2023 Orders Only Department of Oncology in [place], [place] [address] [place] [address] Marilin Kaiser M.D. [address] [place] [address] Primary Malignant Neoplasm Of Prostate (HCC) (Primary [...] How often do you attend chur or uatsdin services? Never 12/21/2021 Do you belong to any clubs o r organizations such as gnosticist groups, unions, fraternal or athletic groups, or [...] and heating? Not hard at all 01/24/2023 [facility] of Occupat ional Health - [...] your living situation today? I have a [facility] place to live 01/24/2023 Education Answer Date Recorded What is the highest level of school you have completed or the highest degree you have received? Master's degree (e.g., MA, MS, Gail, MEd, PERSONAL DEVELOPMENT COACH, JAMIE) 12/21/2021 Sex and Gender Information Value Date Recorded Sex Assigned at Male 12/21/2021 7:22 AM CDT Gender Identity Male 12/21/2021 7:22 AM CDT Sexual Orientation Straight 12/21/2021 7: 22 AM CDT documented as of this encounter Plan of Treatment Upcoming Encounters Date Type Department Care Team (Late Contact Info) Description 03/04/2024 1:15 PM CDT Appointment Department of Radiology in [address] [address] Marilin Kaiser M.D. [address] [place] [address] 03/04/2024 1:30 PM CDT Appointment Department of Radiology in [address] [address] Marilin Kaiser M.D. [address] [place] [address] 03/05/2024 9:15 AM CDT Appointment Department of Radiology in [address] [address] Marilin Kaiser M.D. [address] [place] [address] 04/15/2024 1:15 PM CDT Appointment Department of Radiology in [address] [address] Marilin Kaiser M.D. [address] [place] [address] 04/15/2024 1:30 PM CDT Appointment Department of Radiology in [address] [address] Marilin Kaiser M.D. [address] [place] [address] 04/16/2024 9:15 AM CDT Appointment Department of Radiology in [address] [address] Marilin Kaiser M.D. [address] [place] [address] 05/27/2024 12:45 PM CDT Appointment Department of Radiology in [address] [address] Marilin Kaiser M.D. [address] [place] [address] 05/27/2024 1:00 PM CDT Appointment Department of Radiology in [address] [address] Marilin Kaiser M.D. [address] [place] [address] 05/28/2024 9:15 AM CDT Appointment Department of Radiology in [address] [address] Marilin Kaiser M.D. [address] [place] [address] 07/08/2024 1:15 PM SHOULDER JOINER Appointment Department of Radiology in [address] [address] Marilin Kaiser M.D. [address] [place] [address] 07/08/2024 1:30 PM SHOULDER JOINER Appointment Department of Radiology in [address] [address] Marilin Kaiser M.D. [address] [place] [address] 07/09/2024 9:45 AM SHOULDER JOINER Appointment Department of Radiology in [place], [place] [address] [place] [address] Marilin Kaiser M.D. [address] [place] [address] 08/19/2024 12:45 PM SHOULDER JOINER Appointment Department of Radiology in [address] [address] Marilin Kaiser M.D. [address] [place] [address] 08/19/2024 1:00 PM SHOULDER JOINER Appointment Department of Radiology in [address] [address] Marilin Kaiser M.D. [address] [place] [address] 08/20/2024 9:45 AM SHOULDER JOINER Appointment Department of Radiology in [address] [address] Marilin Kaiser M.D. [address] [place] [address] documented as of this encounter Results * [...] (HCC) documented in this encounter Care Teams Shipping And Receiving Supervisor Relationship Specialty Start Date End Date Elsewhere, Pcp PCP - General Family Medicine 08/31/20 documented as of this encounter
--- OUTSIDE RECORDS SUMMARY | 2024-02-17 20:50 | XMS_ITS | Encounter Summary ---
Author Organization [facility] Address [address] [place] [address] Care Team Providers Care Line Runner Name Role Phone Elsewhere, Pcp Primary Care Provider Unavailabl e Reason for Referral * MRI/CAT/PET Scan (Routine) - Closed Specialty Diagnoses / Procedures Referred By Javon lopez Referred To Contact Diagnoses Primary Malignant Neoplasm Of Prostate (HCC) Procedures PET CT Skull to Thigh PSMA Marilin Kaiser M.D. [address] [place] [address] [facility] Referral ID Status Reason Start Date Expiration Date Visits Re quested Visits Authorized [id number] Closed 12/18/2023 12/17/2024 1 1 Reason for Visit * MRI/CAT/PET Scan (Routine) - Closed Specialty Diagnoses / Procedures Referred By Javon lopez Referred To Contact Diagnoses Primary Malignant Neoplasm Of Prostate (HCC) Procedures PET CT Skull to Thigh PSMA Marilin Kaiser M.D. [address] [place] [address] [facility] Region Referral ID Status Reason Start Date Expiration Date Visits Re quested Visits Authorized [id number] Closed 12/18/2023 12/17/2024 1 1 Encounter Details Date Type Department Care Team (Latest Contact Info) Description 12/24/2023 10:33 AM CDT - 12/24/2023 11:59 PM CDT Hospital Encounter Department of Radiology in [place], [place] [address] [place] [address] Marilin Kaiser M.D. [address] [place] [address] Primary Malignant Neoplasm Of Prostate [...] often do you attend chur ch or caodaism services? Never 12/21/2021 Do you belong to any clubs o r organizations such as zoroastrianism groups, unions, fraternal or athletic groups, or [...] and heating? Not hard at all 01/24/2023 [facility] [place] of Occupat ional Health - Occupational Stress [...] your living situation today? [facility] 01/24/2023 Education Answer Date Recorded What is the highest level of school you have completed or the highest degree you have received? Master's degree (e.g., LETTY, MS, Gail, MEd, SPA ASSISTANT MANAGER, JAMIE) 12/21/2021 Sex and Gender Information [...] PM CDT Appointment Department of Radiology in [place], [place] [address] [place] [address] Marilin Kaiser M.D. [address] [place] [address] 03/04/2024 1:30 PM CDT Appointment Department of Radiology in [place], [place] [address] [place] [address] Marilin Kaiser M.D. [address] [place] [address] 03/05/2024 9:15 AM CDT Appointment Department of Radiology in [address] [address] Marilin Kaiser M.D. [address] [place] [address] 04/15/2024 1:15 PM CDT Appointment Department of Radiology in [address] [address] Marilin Kaiser M.D. [address] [place] [address] 04/15/2024 1:30 PM CDT Appointment Department of Radiology in [address] [address] Marilin Kaiser M.D. [address] [place] [address] 04/16/2024 9:15 AM CDT Appointment Department of Radiology in [address] [address] Marilin Kaiser M.D. [address] [place] [address] 05/27/2024 12:45 PM CDT Appointment Department of Radiology in [address] [address] Marilin Kaiser M.D. [address] [place] [address] 05/27/2024 1:00 PM CDT Appointment Department of Radiology in [address] [address] Marilin Kaiser M.D. [address] [place] [address] 05/28/2024 9:15 AM CDT Appointment Department of Radiology in [place], [place] [address] [place] [address] Marilin Kaiser M.D. [address] [place] [address] 07/08/2024 1:15 PM PAVING CONTRACTOR Appointment Department of Radiology in [address] [address] Marilin Kaiser M.D. [address] [place] [address] 07/08/2024 1:30 PM PAVING CONTRACTOR Appointment Department of Radiology in [place] [address] [place] [address] Marilin Kaiser M.D. [address] [place] [address] 07/09/2024 9:45 AM PAVING CONTRACTOR Appointment Department of Radiology in [address] [address] Marilin Kaiser M.D. [address] [place] [address] 08/19/2024 12:45 PM PAVING CONTRACTOR Appointment Department of Radiology in [address] [address] Marilin Kaiser M.D. [address] [place] [address] 08/19/2024 1:00 PM PAVING CONTRACTOR Appointment Department of Radiology in [address] [place] [address] Marilin Kaiser M.D. [address] [place] [address] 08/20/2024 9:45 AM PAVING CONTRACTOR Appointment Department of Radiology in [place], [place] [address] [place] [address] Marilin Kaiser M.D. [address] [place] [address] documented as of this encounter Procedures Procedure [...] Antecubital documented in this encounter Care Teams Line Runner Relationship Specialty Start Date End Date Elsewhere, Pcp PCP - General Family Medicine 08/31/20 documented as of this encounter
--- OUTSIDE RECORDS SUMMARY | 2024-02-17 20:50 | XMS_ITS | Encounter Summary ---
Author Organization [facility] Address [address] [place] [address] Care Team Providers Care Agricultural Research Engineer Name Role Phone Elsewhere, Pcp Primary Care Provider Unavailabl e Encounter Details Date Type Department Care Team (Late st Contact Info) Description 12/26/2023 Orders Only Department of Oncology in [place], [place] [address] [place] [phone] Marilin Kaiser M.D. [address] [place] [phone] Social History Tobacco Use Types Packs/Day Years [...] often do you attend chur ch or judaism services? Never 12/21/2021 Do you belong to [...] and heating? Not hard at all 01/24/2023 [facility] of Occupat ional Health - [...] your living situation today? I have a [facility] place to live 01/24/2023 Education Answer Date Recorded What is the highest level of school you have completed or the highest degree you have received? Master's degree (e.g., MA, MS, Gail, MEd, FARM EQUIPMENT ENGINEER, JAMIE) 12/21/2021 Sex and Gender Information Value Date Recorded Sex Assigned at Male 12/21/2021 7:22 AM CDT Gender Identity Male 12/21/2021 7:22 AM CDT Sexual Orientation Straight 12/21/2021 7: 22 AM CDT documented as of this encounter Plan of Treatment Upcoming Encounters Date Type Department Care Team (Late st Contact Info) Description 03/04/2024 1:15 PM CDT Appointment Department of Radiology in [place], [place] [address] [place] [address] Marilin Kaiser M.D. [address] [place] [address] 03/04/2024 1:30 PM CDT Appointment Department of Radiology in [place], [place] [address] [place] [address] Marilin Kaiser M.D. [address] [place] [address] 03/05/2024 9:15 AM CDT Appointment Department of Radiology in [address] [address] Marilin Kaiser M.D. [address] [place] [address] 04/15/2024 1:15 PM CDT Appointment Department of Radiology in [address] [address] Marilin Kaiser M.D. [address] [place] [address] 04/15/2024 1:30 PM CDT Appointment Department of Radiology in [address] [address] Marilin Kaiser M.D. [address] [place] [address] 04/16/2024 9:15 AM CDT Appointment Department of Radiology in [address] [address] Marilin Kaiser M.D. [address] [place] [address] 05/27/2024 12:45 PM CDT Appointment Department of Radiology in [address] [address] Marilin Kaiser M.D. [address] [place] [address] 05/27/2024 1:00 PM CDT Appointment Department of Radiology in [address] [address] Marilin Kaiser M.D. [address] [place] [address] 05/28/2024 9:15 AM CDT Appointment Department of Radiology in [place], [place] [address] [place] [address] Marilin Kaiser M.D. [address] [place] [address] 07/08/2024 1:15 PM SOCCER COACH Appointment Department of Radiology in [place] [address] [place] [address] Marilin Kaiser M.D. [address] [place] [address] 07/08/2024 1:30 PM SOCCER COACH Appointment Department of Radiology in [place] [address] [place] [address] Marilin Kaiser M.D. [address] [place] [address] 07/09/2024 9:45 AM SOCCER COACH Appointment Department of Radiology in [place] [address] [place] [address] Marilin Kaiser M.D. [address] [place] [address] 08/19/2024 12:45 PM SOCCER COACH Appointment Department of Radiology in [place] [address] [place] [address] Marilin Kaiser M.D. [address] [place] [address] 08/19/2024 1:00 PM SOCCER COACH Appointment Department of Radiology in [place], [place] [address] [place] [address] Marilin Kaiser M.D. [address] [place] [address] 08/20/2024 9:45 AM SOCCER COACH Appointment Department of Radiology in [address] [address] Marilin Kaiser M.D. [address] [place] [address] documented as of this encounter Visit Diagnoses Not on filedocumented in this encounter Care Teams Agricultural Research Engineer Relationship Specialty Start Date End Date Elsewhere, Pcp PCP - General Family Medicine 08/31/20 documented as of this encounter
--- OUTSIDE RECORDS SUMMARY | 2024-02-17 20:50 | XMS_ITS | Encounter Summary ---
Author Organization [facility] Address [address] [place] [address] Care Team Providers Care Shell Maker Lockstitch Name Role Phone Elsewhere, Pcp Primary Care Provider Unavailabl e Encounter Details Date Type Department Care Team (Late st Contact Info) Description 12/26/2023 Orders Only Department of Oncology in [place], [place] [address] [address] Renetta Tan R.N. [address] [phone] Secondary Malignant Neoplasm Bone (HCC) (Primary Dx); [...] your living situation today? I have a [facility] place to live 01/24/2023 Education Answer Date Recorded What is the highest level of school you have completed or the highest degree you have received? Master's degree (e.g., MA, MS, Gail, MEd, TIME CLOCK INSPECTOR, JAMIE) 12/21/2021 Sex and Gender Information Value Date Recorded Sex Assigned at Male 12/21/2021 7:22 AM CDT Gender Identity Male 12/21/2021 7:22 AM CDT Sexual Orientation Straight 12/21/2021 7: 22 AM CDT documented as of this encounter Plan of Treatment Upcoming Encounters Date Type Department Care Team (Late st Contact Info) Description 03/04/2024 1:15 PM CDT Appointment Department of Radiology in [place], [place] [address] [place] [address] Marilin Kaiser M.D. [address] [place] [phone] 03/04/2024 1:30 PM CDT Appointment Department of Radiology in [place], [place] [address] [place] [address] Marilin Kaiser M.D. [address] [place] [address] 03/05/2024 9:15 AM CDT Appointment Department of Radiology in [place], [place] [address] [place] [address] Marilin Kaiser M.D. [address] [place] [address] 04/15/2024 1:15 PM CDT Appointment Department of Radiology in [address] [address] Marilin Kaiser M.D. [address] [place] [address] 04/15/2024 1:30 PM CDT Appointment Department of Radiology in [address] [address] Marilin Kaiser M.D. [address] [place] [address] 04/16/2024 9:15 AM CDT Appointment Department of Radiology in [address] [address] Marilin Kaiser M.D. [address] [place] [address] 05/27/2024 12:45 PM CDT Appointment Department of Radiology in [address] [address] Marilin Kaiser M.D. [address] [place] [address] 05/27/2024 1:00 PM CDT Appointment Department of Radiology in [address] [address] Marilin Kaiser M.D. [address] [place] [address] 05/28/2024 9:15 AM CDT Appointment Department of Radiology in [address] [address] Marilin Kaiser M.D. [address] [place] [address] 07/08/2024 1:15 PM SERVICE CENTER COORDINATOR Appointment Department of Radiology in [address] [address] Marilin Kaiser M.D. [address] [place] [address] 07/08/2024 1:30 PM SERVICE CENTER COORDINATOR Appointment Department of Radiology in [address] [address] Marilin Kaiser M.D. [address] [place] [address] 07/09/2024 9:45 AM SERVICE CENTER COORDINATOR Appointment Department of Radiology in [address] [address] Marilin Kaiser M.D. [address] [place] [address] 08/19/2024 12:45 PM SERVICE CENTER COORDINATOR Appointment Department of Radiology in [address] [address] Marilin Kaiser M.D. [address] [place] [address] 08/19/2024 1:00 PM SERVICE CENTER COORDINATOR Appointment Department of Radiology in [place], [place] [address] [place] [address] Marilin Kaiser M.D. [address] [place] [address] 08/20/2024 9:45 AM SERVICE CENTER COORDINATOR Appointment Department of Radiology in [place] [address] [place] [address] Marilin Kaiser M.D. [address] [place] [address] documented as of this encounter Visit Diagnoses Diagnosis Secondary Malignant Neoplasm Bone (HCC)- Primary Primary Malignant Neoplasm Of Prostate (HCC) documented in this encounter Care Teams Shell Maker Lockstitch Relationship Specialty Start Date End Date Elsewhere, Pcp PCP - General Family Medicine 08/31/20 documented as of this encounter
--- OUTSIDE RECORDS SUMMARY | 2024-02-17 20:50 | XMS_ITS | Encounter Summary ---
Author Organization [facility] Address [address] [place] [address] Care Team Providers Care Retail Banking Manager Name Role Phone Elsewhere, Pcp Primary Care Provider Unavailabl e Encounter Details Date Type Department Care Team (Late st Contact Info) Description 12/27/2023 Documentation Department of Radiology in [place], [place] [address] [place] [address] Evelina Ontiveros, AMBER, C.N.P., D.N.P. [address] [place] [address] Social History Tobacco Use Types Packs/Day Years [...] often do you attend chur ch or congregational services? Never 12/21/2021 Do you belong to [...] living situation today? I have a [facility] place to live 01/24/2023 Education Answer Date Recorded What is the highest level of school you have completed or the highest degree you have received? Master's degree (e.g., MA, MS, Gail, MEd, POLE INSPECTOR, JAMIE) 12/21/2021 Sex and Gender Information [...] Prostate biopsy was performed. Pathology demonstrated adenocarcinoma, [place] 3+4=7. Adenocarcinomawas an every biopsy specimen, generally with greater than 50% total surface area involved. Perineural invasion was also present. T1c. 01/29/2011 - 03/28/2011 Radiation Therapy Intensity modulated radiation therapy to the prostate to a dose of 7560 cGy in 42 fractions under the care of Dr. Rachael Sanford at [facility] in [place], [place]. 01/2011 - Biological/Targeted/Hormone Therapy Lupron 30 [...] and Procedures Cryotherapy with Dr. Yu at [facility]. The patient underwent placement of 13 cryo [...] 11/30/2021 Critical Imaging PSMA PET scan at [facility] demonstrated radiotracer positive lesion in the prostate [...] Common Hereditary Cancers Panel (47 genes) via [employer]. See test report fordetails regarding genes analyzed and testing methodologies. RESULT: NEGATIVE FOR CLINICALLY ACTIONABLE VARIANTS No clinically actionable (pathogenic or likely pathogenic) variants were detected in the genes analyzed. One variant of uncertain significance was detected: POLE [id number] (p.[id number]). No laboratory classifies this variant as clinically-actionable [...] Master's degree (e.g., MA, MS, Gail, MEd, POLE INSPECTOR, JAMIE) Occupational History Not on file Tobacco [...] PM CDT Appointment Department of Radiology in [address] [address] Marilin Kaiser M.D. [address] [place] [address] 03/04/2024 1:30 PM CDT Appointment Department of Radiology in [address] [address] Marilin Kaiser M.D. [address] [place] [address] 03/05/2024 9:15 AM CDT Appointment Department of Radiology in [address] [address] Marilin Kaiser M.D. [address] [place] [address] 04/15/2024 1:15 PM CDT Appointment Department of Radiology in [address] [address] Marilin Kaiser M.D. [address] [place] [address] 04/15/2024 1:30 PM CDT Appointment Department of Radiology in [address] [address] Marilin Kaiser M.D. [address] [place] [address] 04/16/2024 9:15 AM CDT Appointment Department of Radiology in [address] [address] Marilin Kaiser M.D. [address] [place] [address] 05/27/2024 12:45 PM CDT Appointment Department of Radiology in [address] [address] Marilin Kaiser M.D. [address] [place] [address] 05/27/2024 1:00 PM CDT Appointment Department of Radiology in [address] [address] Marilin Kaiser M.D. [address] [place] [address] 05/28/2024 9:15 AM CDT Appointment Department of Radiology in [address] [address] Marilin Kaiser M.D. [address] [place] [address] 07/08/2024 1:15 PM COMMISSION FOR THE BLIND DIRECTOR Appointment Department of Radiology in [address] [address] Marilin Kaiser M.D. [address] [place] [address] 07/08/2024 1:30 PM COMMISSION FOR THE BLIND DIRECTOR Appointment Department of Radiology in [address] [address] Marilin Kaiser M.D. [address] [place] [address] 07/09/2024 9:45 AM COMMISSION FOR THE BLIND DIRECTOR Appointment Department of Radiology in [address] [address] Marilin Kaiser M.D. [address] [place] [address] 08/19/2024 12:45 PM COMMISSION FOR THE BLIND DIRECTOR Appointment Department of Radiology in [address] [address] Marilin Kaiser M.D. [address] [place] [address] 08/19/2024 1:00 PM COMMISSION FOR THE BLIND DIRECTOR Appointment Department of Radiology in [address] [address] Marilin Kaiser M.D. [address] [place] [address] 08/20/2024 9:45 AM COMMISSION FOR THE BLIND DIRECTOR Appointment Department of Radiology in [place], [place] [address] [place] [address] Marilin Kaiser M.D. 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
--- OUTSIDE RECORDS SUMMARY | 2024-02-17 20:50 | XMS_ITS | Clinical Summary ---
Author Organization [facility] Address [address] [place] [address] Care Team Providers Care Director Of Tax Services Name Role Phone Rivas Torres MD Primary Care Provider [phone] Allergies Active Allergy Reactions Criticality Noted Date [...] 3 days 10/22/2022 Active Cholecalciferol 250 MCG (56082 UT) CAPS 01/17/2022 Active lisinopril (ZESTRIL) 20 [...] age to complete this topic Care Teams Director Of Tax Services Relationship Specialty Start Date End Date Rivas Torres MD PCP - General Family Practice 04/27/19
--- OUTSIDE RECORDS SUMMARY | 2024-02-17 20:50 | XMS_ITS | Encounter Summary ---
Author Organization [facility] Address [address] [place] [address] Care Team Providers Care Tissue Rewinder Name Role Phone Elsewhere, Pcp Primary Care Provider Unavailabl e Encounter Details Date Type Department Care Team (Late st Contact Info) Description 12/26/2023 Orders Only Department of Oncology in [place], [place] [address] [place] [address] Marilin Kaiser M.D. [address] [place] [address] Social History Tobacco Use Types Packs/Day Years [...] often do you attend chur ch or methodist services? Never 12/21/2021 Do you belong to [...] and heating? Not hard at all 01/24/2023 [facility] of Occupat ional Health - [...] Master's degree (e.g., MA, MS, Gail, MEd, EVENT STAFF, JAMIE) 12/21/2021 Sex and Gender Information Value Date Recorded Sex Assigned at Male 12/21/2021 7:22 AM CDT Gender Identity Male 12/21/2021 7:22 AM CDT Sexual Orientation Straight 12/21/2021 7: 22 AM CDT documented as of this encounter Plan of Treatment Upcoming Encounters Date Type Department Care Team (Late st Contact Info) Description 03/04/2024 1:15 PM CDT Appointment Department of Radiology in [place], [place] [address] [place] [address] Marilin Kaiser M.D. [address] [place] [address] 03/04/2024 1:30 PM CDT Appointment Department of Radiology in [place], [place] [address] [place] [address] Marilin Kaiser M.D. [address] [place] [address] 03/05/2024 9:15 AM CDT Appointment Department of Radiology in [address] [address] Marilin Kaiser M.D. [address] [place] [address] 04/15/2024 1:15 PM CDT Appointment Department of Radiology in [address] [address] Marilin Kaiser M.D. [address] [place] [address] 04/15/2024 1:30 PM CDT Appointment Department of Radiology in [address] [address] Marilin Kaiser M.D. [address] [place] [address] 04/16/2024 9:15 AM CDT Appointment Department of Radiology in [address] [address] Marilin Kaiser M.D. [address] [place] [address] 05/27/2024 12:45 PM CDT Appointment Department of Radiology in [address] [address] Marilin Kaiser M.D. [address] [place] [address] 05/27/2024 1:00 PM CDT Appointment Department of Radiology in [address] [address] Marilin Kaiser M.D. [address] [place] [address] 05/28/2024 9:15 AM CDT Appointment Department of Radiology in [place], [place] [address] [place] [address] Marilin Kaiser M.D. [address] [place] [address] 07/08/2024 1:15 PM ROTARY OPERATOR Appointment Department of Radiology in [place] [address] [place] [address] Marilin Kaiser M.D. [address] [place] [address] 07/08/2024 1:30 PM ROTARY OPERATOR Appointment Department of Radiology in [place] [address] [place] [address] Marilin Kaiser M.D. [address] [place] [address] 07/09/2024 9:45 AM ROTARY OPERATOR Appointment Department of Radiology in [place] [address] [place] [address] Marilin Kaiser M.D. [address] [place] [address] 08/19/2024 12:45 PM ROTARY OPERATOR Appointment Department of Radiology in [place] [address] [place] [address] Marilin Kaiser M.D. [address] [place] [address] 08/19/2024 1:00 PM ROTARY OPERATOR Appointment Department of Radiology in [place], [place] [address] [place] [address] Marilin Kaiser M.D. [address] [place] [address] 08/20/2024 9:45 AM ROTARY OPERATOR Appointment Department of Radiology in [address] [address] Marilin Kaiser M.D. [address] [place] [address] documented as of this encounter Visit Diagnoses Not on filedocumented in this encounter Care Teams Tissue Rewinder Relationship Specialty Start Date End Date Elsewhere, Pcp PCP - General Family Medicine 08/31/20 documented as of this encounter
--- OUTSIDE RECORDS SUMMARY | 2024-02-17 20:50 | XMS_ITS | Encounter Summary ---
Author Organization [facility] Address [address] [place] [address] Care Team Providers Care Dealership General Manager Name Role Phone Elsewhere, Pcp Primary Care Provider Unavailabl e Encounter Details Date Type Department Care Team (Late st Contact Info) Description 01/02/2024 Clinical Communication Department of Radiology in [place], [place] [address] [place] [address] Peterson Rodas Social History Tobacco Use Types [...] often do you attend chur ch or congregation services? Never 12/21/2021 Do you belong to any clubs o r organizations such as yazidi groups, unions, fraternal or athletic groups, or [...] heating? Not hard at all 01/24/2023 [facility] - Occupational [...] living situation today? I have a [facility] place to live 01/24/2023 Education Answer Date Recorded What is the highest level of school you have completed or the highest degree you have received? Master's degree (e.g., MA, MS, Gail, MEd, CUPROUS CHLORIDE HELPER, JAMIE) 12/21/2021 Sex and Gender Information [...] PM CDT Appointment Department of Radiology in [place], [place] [address] [place] [address] Marilin Kaiser M.D. [address] [place] [address] 03/04/2024 1:30 PM CDT Appointment Department of Radiology in [address] [address] Marilin Kaiser M.D. [address] [place] [address] 03/05/2024 9:15 AM CDT Appointment Department of Radiology in [address] [address] Marilin Kaiser M.D. [address] [place] [address] 04/15/2024 1:15 PM CDT Appointment Department of Radiology in [address] [address] Marilin Kaiser M.D. [address] [place] [address] 04/15/2024 1:30 PM CDT Appointment Department of Radiology in [address] [address] Marilin Kaiser M.D. [address] [place] [address] 04/16/2024 9:15 AM CDT Appointment Department of Radiology in [address] [address] Marilin Kaiser M.D. [address] [place] [address] 05/27/2024 12:45 PM CDT Appointment Department of Radiology in [address] [address] Marilin Kaiser M.D. [address] [place] [address] 05/27/2024 1:00 PM CDT Appointment Department of Radiology in [address] [address] Marilin Kaiser M.D. [address] [place] [address] 05/28/2024 9:15 AM CDT Appointment Department of Radiology in [address] [address] Marilin Kaiser M.D. [address] [place] [address] 07/08/2024 1:15 PM PARTS SALES ASSOCIATE Appointment Department of Radiology in [address] [address] Marilin Kaiser M.D. [address] [place] [address] 07/08/2024 1:30 PM PARTS SALES ASSOCIATE Appointment Department of Radiology in [address] [address] Marilin Kaiser M.D. [address] [place] [address] 07/09/2024 9:45 AM PARTS SALES ASSOCIATE Appointment Department of Radiology in [address] [address] Marilin Kaiser M.D. [address] [place] [address] 08/19/2024 12:45 PM PARTS SALES ASSOCIATE Appointment Department of Radiology in [place], [place] [address] [place] [address] Marilin Kaiser M.D. [address] [place] [address] 08/19/2024 1:00 PM PARTS SALES ASSOCIATE Appointment Department of Radiology in [place], [place] [address] [place] [address] Marilin Kaiser M.D. [address] [place] [address] 08/20/2024 9:45 AM PARTS SALES ASSOCIATE Appointment Department of Radiology in [address] [address] Marilin Kaiser M.D. [address] [place] [address] documented as of this encounter Visit Diagnoses Not on filedocumented in this encounter Care Teams Dealership General Manager Relationship Specialty Start Date End Date Elsewhere, Pcp PCP - General Family Medicine 08/31/20 documented as of this encounter
--- OUTSIDE RECORDS SUMMARY | 2024-02-17 20:50 | XMS_ITS | Encounter Summary ---
Author Organization [facility] Address [address] [place] [address] Care Team Providers Care Visual And Stock Associate Name Role Phone Elsewhere, Pcp Primary Care Provider Unavailabl e Reason for Referral * Outpatient (Routine) - Authorized Specialty Diagnoses / Procedures Referred By Javon t Referred To Contact Diagnoses Primary Malignant Neoplasm Of Prostate (HCC) Procedures NM Post Therapy Iris-177 PSMA Monitoring Whole Body with SPECT CT Multiple Marilin Kaiser M.D. [address] [place] [address] [facility] Referral ID Status Reason Start Date Expiration Date V isits Requested Visits Authorized [id number] Authorized 12/27/2023 12/26/2024 8 8 * Outpatient (Routine) - Authorized Specialty Diagnoses / Procedures Referred By Contac t Referred To Contact Diagnoses Primary Malignant Neoplasm Of Prostate (HCC) Procedures NM Therapy Iris-177 PSMA Marilin Kaiser M.D. [address] [place] [address] [facility] Referral ID Status Reason Start Date Expiration Date V isits Requested Visits Authorized [id number] Authorized 12/27/2023 12/26/2024 8 8 * Outpatient (Routine) - Authorized Specialty Diagnoses / Procedures Referred By Contac t Referred To Contact Marilin Kaiser M.D. [address] [place] [address] [facility] Referral ID Status Reason Start Date Expiration Date V isits Requested Visits Authorized [id number] Authorized 12/27/2023 06/27/2025 1 1 * Outpatient (Routine) - Authorized Specialty Diagnoses / Procedures Referred By Contac t Referred To Contact Diagnoses Primary Malignant Neoplasm Of Prostate (HCC) Procedures NM Post Therapy Iris-177 PSMA Monitoring Whole Body with SPECT CT Multiple Marilin Kaiser M.D. [address] [place] [address] [facility] Referral ID Status Reason Start Date Expiration Date V isits Requested Visits Authorized [id number] Authorized 12/27/2023 12/26/2024 8 8 * Outpatient (Routine) - Authorized Specialty Diagnoses / Procedures Referred By Contac t Referred To Contact Diagnoses Primary Malignant Neoplasm Of Prostate (HCC) Procedures NM Therapy Iris-177 PSMA Marilin Kaiser M.D. [address] [place] [address] [facility] Referral ID Status Reason Start Date Expiration Date V isits Requested Visits Authorized [id number] Authorized 12/27/2023 12/26/2024 8 8 * Outpatient (Routine) - Authorized Specialty Diagnoses / Procedures Referred By Contdagoberto t Referred To Contact Marilin Kaiser M.D. [address] [place] [address] [facility] Referral ID Status Reason Start Date Expiration Date V isits Requested Visits Authorized [id number] Authorized 12/27/2023 06/27/2025 1 1 * Outpatient (Routine) - Authorized Specialty Diagnoses / Procedures Referred By Morenitaac t Referred To Contact Diagnoses Primary Malignant Neoplasm Of Prostate (HCC) Procedures NM Post Therapy Iris-177 PSMA Monitoring Whole Body with SPECT CT Multiple Marilin Kaiser M.D. [address] [place] [address] [facility] Referral ID Status Reason Start Date Expiration Date V isits Requested Visits Authorized [id number] Authorized 12/27/2023 12/26/2024 8 8 * Outpatient (Routine) - Authorized Specialty Diagnoses / Procedures Referred By Javon t Referred To Contact Diagnoses Primary Malignant Neoplasm Of Prostate (HCC) Procedures NM Therapy Iris-177 PSMA Marilin Kaiser M.D. [address] [place] [address] [facility] Referral ID Status Reason Start Date Expiration Date V isits Requested Visits Authorized [id number] Authorized 12/27/2023 12/26/2024 8 8 * Outpatient (Routine) - Authorized Specialty Diagnoses / Procedures Referred By Javon t Referred To Contact Marilin Kaiser M.D. [address] [place] [address] [facility] Referral ID Status Reason Start Date Expiration Date V isits Requested Visits Authorized [id number] Authorized 12/27/2023 06/27/2025 1 1 * Outpatient (Routine) - Authorized Specialty Diagnoses / Procedures Referred By Contac t Referred To Contact Diagnoses Primary Malignant Neoplasm Of Prostate (HCC) Procedures NM Post Therapy Iris-177 PSMA Monitoring Whole Body with SPECT CT Multiple Job, Marilin, M.D. [address] [place] [address] [facility] Referral ID Status Reason Start Date Expiration Date V isits Requested Visits Authorized [id number] Authorized 12/27/2023 12/26/2024 8 8 * Outpatient (Routine) - Authorized Specialty Diagnoses / Procedures Referred By Contac t Referred To Contact Diagnoses Primary Malignant Neoplasm Of Prostate (HCC) Procedures NM Therapy Iris-177 PSMA Marilin Kaiser M.D. [address] [place] [address] [facility] Referral ID Status Reason Start Date Expiration Date V isits Requested Visits Authorized [id number] Authorized 12/27/2023 12/26/2024 8 8 * Outpatient (Routine) - Authorized Specialty Diagnoses / Procedures Referred By Contac t Referred To Contact Marilin Kaiser M.D. [address] [place] [address] [facility] Referral ID Status Reason Start Date Expiration Date V isits Requested Visits Authorized [id number] Authorized 12/27/2023 06/27/2025 1 1 * Outpatient (Routine) - Authorized Specialty Diagnoses / Procedures Referred By Contac t Referred To Contact Diagnoses Primary Malignant Neoplasm Of Prostate (HCC) Procedures NM Post Therapy Iris-177 PSMA Monitoring Whole Body with SPECT CT Marilin Bland M.D. [address] [place] [address] [facility] Referral ID Status Reason Start Date Expiration Date V isits Requested Visits Authorized [id number] Authorized 12/27/2023 12/26/2024 8 8 * Outpatient (Routine) - Authorized Specialty Diagnoses / Procedures Referred By Morenitaac t Referred To Contact Diagnoses Primary Malignant Neoplasm Of Prostate (HCC) Procedures NM Therapy Iris-177 PSMA Marilin Kaiser M.D. [address] [place] [address] [facility] Referral ID Status Reason Start Date Expiration Date V isits Requested Visits Authorized [id number] Authorized 12/27/2023 12/26/2024 8 8 * Outpatient (Routine) - Authorized Specialty Diagnoses / Procedures Referred By Javon t Referred To Contact Marilin Kaiser M.D. [address] [place] [address] [facility] Referral ID Status Reason Start Date Expiration Date V isits Requested Visits Authorized [id number] Authorized 12/27/2023 06/27/2025 1 1 * Outpatient (Routine) - Authorized Specialty Diagnoses / Procedures Referred By Javon t Referred To Contact Diagnoses Primary Malignant Neoplasm Of Prostate (HCC) Procedures NM Post Therapy Iris-177 PSMA Monitoring Whole Body with SPECT CT Multiple Marilin Kaiser M.D. [address] [place] [address] [facility] Referral ID Status Reason Start Date Expiration Date V isits Requested Visits Authorized [id number] Authorized 12/27/2023 12/26/2024 8 8 * Outpatient (Routine) - Authorized Specialty Diagnoses / Procedures Referred By Contac t Referred To Contact Diagnoses Primary Malignant Neoplasm Of Prostate (HCC) Procedures NM Therapy Iris-177 PSMA Marilin Kaiser M.D. [address] [place] [address] [facility] Referral ID Status Reason Start Date Expiration Date V isits Requested Visits Authorized [id number] Authorized 12/27/2023 12/26/2024 8 8 * Outpatient (Routine) - Pending Review Specialty Diagnoses / Procedures Referred By Javon lopez Referred To Contact Radiology Diagnoses Primary Malignant Neoplasm Of Prostate (HCC) Marilin Kaiser M.D. [address] [place] [address] [facility] Referral ID Status Reason Start Date Expiration Date V isits Requested Visits Authorized [id number] Pending Review 12/27/2023 06/27/2025 1 1 Encounter Details Date Type Department Care Team (Late st Contact Info) Description 12/27/2023 Orders Only Department of Oncology in [place], [place] [address] [place] [address] Renetta Tan R.N. [address], [place] [address] Primary Malignant Neoplasm Of Prostate (HCC) (Primary [...] How often do you attend chur or judaism services? Never 12/21/2021 Do you belong to any clubs o r organizations such as latter day groups, unions, fraternal or athletic groups, or [...] and heating? Not hard at all 01/24/2023 [facility] [place] [facility] - Occupational Stress [...] Master's degree (e.g., MA, MS, Gail, MEd, CARPET OR RUG LAYER HELPER, JAMIE) 12/21/2021 Sex and Gender Information Value Date Recorded Sex Assigned at Male 12/21/2021 7:22 AM CDT Gender Identity Male 12/21/2021 7:22 AM CDT Sexual Orientation Straight 12/21/2021 7: 22 AM CDT documented as of this encounter Plan of Treatment Upcoming Encounters Date Type Department Care Team (Late st Contact Info) Description 03/04/2024 1:15 PM CDT Appointment Department of Radiology in [place], [place] [address] [place] [address] Marilin Kaiser M.D. [address] [place] [address] 03/04/2024 1:30 PM CDT Appointment Department of Radiology in [address] [address] Marilin Kaiser M.D. [address] [place] [address] 03/05/2024 9:15 AM CDT Appointment Department of Radiology in [address] [address] Marilin Kaiser M.D. [address] [place] [address] 04/15/2024 1:15 PM CDT Appointment Department of Radiology in [address] [address] Marilin Kaiser M.D. [address] [place] [address] 04/15/2024 1:30 PM CDT Appointment Department of Radiology in [address] [address] Marilin Kaiser M.D. [address] [place] [address] 04/16/2024 9:15 AM CDT Appointment Department of Radiology in [address] [address] Marilin Kaiser M.D. [address] [place] [address] 05/27/2024 12:45 PM CDT Appointment Department of Radiology in [address] [address] Marilin Kaiser M.D. [address] [place] [address] 05/27/2024 1:00 PM CDT Appointment Department of Radiology in [place] [address] [place] [address] Marilin Kaiser M.D. [address] [place] [address] 05/28/2024 9:15 AM CDT Appointment Department of Radiology in [address] [address] Marilin Kaiser M.D. [address] [place] [address] 07/08/2024 1:15 PM CLASSIFIED AD TAKER Appointment Department of Radiology in [address] [address] Marilin Kaiser M.D. [address] [place] [address] 07/08/2024 1:30 PM CLASSIFIED AD TAKER Appointment Department of Radiology in [address] [address] Marilin Kaiser M.D. [address] [place] [address] 07/09/2024 9:45 AM CLASSIFIED AD TAKER Appointment Department of Radiology in [address] [address] Marilin Kaiser M.D. [address] [place] [address] 08/19/2024 12:45 PM CLASSIFIED AD TAKER Appointment Department of Radiology in [place], [place] [address] [place] [address] Marilin Kaiser M.D. [address] [place] [address] 08/19/2024 1:00 PM CLASSIFIED AD TAKER Appointment Department of Radiology in [place], [place] [address] [place] [address] Marilin Kaiser M.D. [address] [place] [address] 08/20/2024 9:45 AM CLASSIFIED AD TAKER Appointment Department of Radiology in [place] [address] [place] [address] Marilin Kaiser M.D. [address] [place] [address] Scheduled Orders Name Type Priority Associated Diagnoses [...] vertex to the thighs with low dose, idk-cpdeyebnbefe-zvbjchjmn CT for attenuation correction and anatomic localization,and [...] findings on the noncontrast low-dose CT: Right dtxcqNjda-Z-Xokk tip at the low SVC. Stable 3 [...] score: 3 Marilin Kaiser M.D. [facility] [place] PROCEDURES * NM Therapy Iris-177 PSMA [...] administration of Iris-177 PSMA cycle 1. Marilin HCEN NM PROCEDURES documented in this encounter Visit Diagnoses Diagnosis Primary Malignant Neoplasm Of Prostate (HCC)- Primary Primary Malignant Neoplasm Of Prostate (HCC) Primary Malignant Neoplasm Of Prostate (HCC) documented in this encounter Care Teams Visual And Stock Associate Relationship Specialty Start Date End Date Elsewhere, Pcp PCP - General Family Medicine 08/31/20 documented as of this encounter
--- OUTSIDE RECORDS SUMMARY | 2024-02-17 20:50 | XMS_ITS | Clinical Summary ---
Author Organization [facility] Address [place], [place] [address] Care Team Providers Care Aerospace Engineer Officer Armament Name Role Phone Rivas Torres MD Primary Care Provider [phone] Allergies Active Allergy Reactions Criticality Noted Date [...] Department Care Team Description 12/26/2023 Orders Only [facility] Scanner 1 scan: (1-Ord) MR ARIELLE LUMBAR SPINE WO/W CON, 12/26/2023 12/11/2023 10:00 AM CDT Orders Only [facility] [address] [place] [address] [facility] [place] Outside Order (Severino Rodrigues) 12/11/2023 Travel 12/10/2023 Nurse Triage [place] [address] [place] [address] [address] Rivas Torres MD Error-please disregard (opened in error) 12/10/2023 Orders Only [place] [address] [place] [address] [address] Rivas Torres MD Outside Order (Ordered by Severino Rodrigues ) from Last 3 Months Immunizations Name Administration Dates Next Due COVID-19 vaccine ([employer] 30mcg/0.3mL) 12YO+ MARIA C-SUCROSE PF, MDV [...] Comments Blood Pressure 155/89 10/03/2023 4:32 PM REFINERY OPERATOR ALKYLATION Pulse 89 10/03/2023 4:32 PM REFINERY OPERATOR ALKYLATION Temperature 36.2 ??C (97.2 ??F) 10/03/2023 4:32 PM CS T Respiratory Rate 16 10/03/2023 4:32 PM REFINERY OPERATOR ALKYLATION Oxygen Saturation 98% 10/03/2023 4:32 PM REFINERY OPERATOR ALKYLATION Inhaled Oxygen Concentration - - Weight 90.4 kg (199 lb 4.8 oz) 10/03/2023 1:00 P M REFINERY OPERATOR ALKYLATION Height 185.4 cm (6' 1) 10/03/2023 1:00 PM REFINERY OPERATOR ALKYLATION Body Mass Index 26.29 10/03/2023 1:00 PM REFINERY OPERATOR ALKYLATION Plan of Treatment Upcoming Encounters Date Type Department Care Team (Latest Contact Info) Description 06/11/2024 7:15 AM REFINERY OPERATOR ALKYLATION Hospital Encounter [facility] [address] [place] [address] Severino Rodrigues MD [address] [place] [address] 06/11/2024 7:15 AM REFINERY OPERATOR ALKYLATION - 06/11/2024 8:31 AM REFINERY OPERATOR ALKYLATION Surgery [facility] [address] [place] [address] Severino Rodrigues MD [address] [place] [address] cystoscopy, left ureteral stent exchange Scheduled Procedures Name Priority Associated Diagnoses Date/Ti me CYSTOSCOPY EXCHANGE URETERAL STENT Elective N13.30 Unspecified hydronephrosis 06/11/2024 7:15 AM REFINERY OPERATOR ALKYLATION Health Maintenance Due Date Last Done Comments [...] 03/08/2021, 01/04/2021 Medical Devices Implanted Type Area Office Automation Technician Device Identifier Shelf Expiration Date Model / Serial / Lot Stent Uret [id number] Percuflex Hydroplus - [id number] Implanted:Qty: 1 on 02/01/2023 by Severino Rodrigues MD at [facility] Left: [facility]reter [facility] 03/07/2025 [id number] / / [id number] Stent Uret [id number] P[employer]lex Hydroplus - [id number] Implanted:Qty: 1 on 10/03/2023 by Severino Rodrigues MD at [facility] Left: Ureter [facility] 03/29/2026 [id number] / / [id number] Procedures Procedure Name Priority Date/Time Associated Diagnosis [...] growth (<1,000 CFU/mL) 12/12/2023 11:32 AM CDT [facility] Urine URINE SPECIMEN / Unknown Non-Blood / Unknown 12/11/2023 8:03 AM CDT 12/11/2023 8:03 AM CDT Rivas Torres MD MICROBIOLOGY [facility] [address] [place] [address], * ANTI HCV [26917.2] (05/19/2018 7:38 AM CDT) HEPATITIS C ANTIBODY Non-React rafia Non-React rafia 05/19/2018 3:00 PM CDT [facility] Comment:Antibodies to HCV no t detected; does not exclude the possibility of exposure to HCV. Blood BLOOD SPECIMEN / Unknown Venipuncture / Unknown 05/19/2018 7:38 AM CDT 05/19/2018 7:39 AM CDT Rivas Torres MD SEND OUTS [facility] [address] [place] [address], from Last 3 Months or Most Recently [...] Code Status Discussion: Not Discussed Care Teams Aerospace Engineer Officer Armament Relationship Specialty Start Date End Date Rivas Torres [place] [address] PCP - General 01/09/06
--- OUTSIDE RECORDS SUMMARY | 2024-02-17 20:50 | XMS_ITS | Encounter Summary ---
Author Organization [facility] Address [address] [place] [address] Care Team Providers Care Anatomic Pathologist Name Role Phone Elsewhere, Pcp Primary Care Provider Unavailabl e Encounter Details Date Type Department Care Team (Latest Contact Info) Description 01/02/2024 11:55 AM CDT Ancillary Procedure Department of Radiology in [place], [place] [address] [place] [phone] Evelina Ontiveros, AMBER, C.N.P., D.N.P. [address] [place] [address] Primary Malignant Neoplasm Of Prostate (HCC); Secondary [...] often do you attend chur ch or protestant services? Never 12/21/2021 Do you belong to any clubs o r organizations such as restorationist groups, unions, fraternal or athletic groups, or [...] and heating? Not hard at all 01/24/2023 [facility] - Occupational [...] your living situation today? I have a [facility] place to live 01/24/2023 Education Answer Date Recorded What is the highest level of school you have completed or the highest degree you have received? Master's degree (e.g., MA, MS, Gail, MEd, WILDLIFE OFFICER, JAMIE) 12/21/2021 Sex and Gender Information Value Date Recorded Sex Assigned at Male 12/21/2021 7:22 AM CDT Gender Identity Male 12/21/2021 7:22 AM CDT Sexual Orientation Straight 12/21/2021 7: 22 AM CDT documented as of this encounter Plan of Treatment Upcoming Encounters Date Type Department Care Team (Late st Contact Info) Description 03/04/2024 1:15 PM CDT Appointment Department of Radiology in [place], [place] [address] [place] [address] Marilin Kaiser M.D. [address] [place] [phone] 03/04/2024 1:30 PM CDT Appointment Department of Radiology in [place], [place] [address] [place] [address] Marilin Kaiser M.D. [address] [place] [address] 03/05/2024 9:15 AM CDT Appointment Department of Radiology in [place], [place] [address] [place] [address] Marilin Kaiser M.D. [address] [place] [address] 04/15/2024 1:15 PM CDT Appointment Department of Radiology in [place], [place] [address] [place] [address] Marilin Kaiser M.D. [address] [place] [address] 04/15/2024 1:30 PM CDT Appointment Department of Radiology in [place], [place] [address] [place] [address] Marilin Kaiser M.D. [address] [place] [address] 04/16/2024 9:15 AM CDT Appointment Department of Radiology in [address] [address] Marilin Kaiser M.D. [address] [place] [address] 05/27/2024 12:45 PM CDT Appointment Department of Radiology in [address] [address] Marilin Kaiser M.D. [address] [place] [address] 05/27/2024 1:00 PM CDT Appointment Department of Radiology in [address] [place] [address] Marilin Kaiser M.D. [address] [place] [address] 05/28/2024 9:15 AM CDT Appointment Department of Radiology in [address] [address] Marilin Kaisre M.D. [address] [place] [address] 07/08/2024 1:15 PM SIGN LANGUAGE INTERPRETER Appointment Department of Radiology in [address] [address] Marilin Kaiser M.D. [address] [place] [address] 07/08/2024 1:30 PM SIGN LANGUAGE INTERPRETER Appointment Department of Radiology in [address] [address] Marilin Kaiser M.D. [address] [place] [address] 07/09/2024 9:45 AM SIGN LANGUAGE INTERPRETER Appointment Department of Radiology in [address] [address] Marilin Kaiser M.D. [address] [place] [address] 08/19/2024 12:45 PM SIGN LANGUAGE INTERPRETER Appointment Department of Radiology in [address] [address] Marilin Kaiser M.D. [address] [place] [address] 08/19/2024 1:00 PM SIGN LANGUAGE INTERPRETER Appointment Department of Radiology in [place], [place] [address] [place] [address] Marilin Kaiser M.D. [address] [place] [address] 08/20/2024 9:45 AM SIGN LANGUAGE INTERPRETER Appointment Department of Radiology in [place] [address] [place] [address] Marilin Kaiser M.D. [address] [place] [address] documented as of this encounter Procedures Procedure [...] (HCC) documented in this encounter Care Teams Anatomic Pathologist Relationship Specialty Start Date End Date Elsewhere, Pcp PCP - General Family Medicine 08/31/20 documented as of this encounter
--- OUTSIDE RECORDS SUMMARY | 2024-02-17 20:50 | XMS_ITS | Encounter Summary ---
Author Organization [facility] Address [address] [place] [address] Care Team Providers Care Oil Speculator Name Role Phone Elsewhere, Pcp Primary Care Provider Unavailabl e Encounter Details Date Type Department Care Team (Late st Contact Info) Description 01/02/2024 Orders Only Department of Radiology in [place], [place] [address] [place] [address] Evelina Ontiveros, AMBER, C.N.P., D.N.P. [address] [place] [phone] Primary Malignant Neoplasm Of Prostate (HCC) (Primary [...] often do you attend chur ch or gnosticism services? Never 12/21/2021 Do you belong to [...] and heating? Not hard at all 01/24/2023 [facility] - [facility] Questionnaire Answer Date [...] your living situation today? I have a [facility] place to live 01/24/2023 Education Answer Date Recorded What is the highest level of school you have completed or the highest degree you have received? Master's degree (e.g., MA, MS, Gail, MEd, DIRECTOR OF CONSULTING SERVICES, JAMIE) 12/21/2021 Sex and Gender Information Value Date Recorded Sex Assigned at Male 12/21/2021 7:22 AM CDT Gender Identity Male 12/21/2021 7:22 AM CDT Sexual Orientation Straight 12/21/2021 7: 22 AM CDT documented as of this encounter Plan of Treatment Upcoming Encounters Date Type Department Care Team (Late st Contact Info) Description 03/04/2024 1:15 PM CDT Appointment Department of Radiology in [place], [place] [address] [place] [address] Marilin Kaiser M.D. [address] [place] [address] 03/04/2024 1:30 PM CDT Appointment Department of Radiology in [place], [place] [address] [place] [address] Marilin Kaiser M.D. [address] [place] [address] 03/05/2024 9:15 AM CDT Appointment Department of Radiology in [place], [place] [address] [place] [address] Marilin Kaiser M.D. [address] [place] [address] 04/15/2024 1:15 PM CDT Appointment Department of Radiology in [place], [place] [address] [place] [address] Marilin Kaiser M.D. [address] [place] [address] 04/15/2024 1:30 PM CDT Appointment Department of Radiology in [place] [address] [place] [address] Marilin Kaiser M.D. [address] [place] [address] 04/16/2024 9:15 AM CDT Appointment Department of Radiology in [address] [address] Marilin Kaiser M.D. [address] [place] [address] 05/27/2024 12:45 PM CDT Appointment Department of Radiology in [address] [address] Marilin Kaiser M.D. [address] [place] [address] 05/27/2024 1:00 PM CDT Appointment Department of Radiology in [address] [address] Marilin Kaiser M.D. [address] [place] [address] 05/28/2024 9:15 AM CDT Appointment Department of Radiology in [address] [address] Marilin Kaiser M.D. [address] [place] [address] 07/08/2024 1:15 PM DYE OPERATOR Appointment Department of Radiology in [address] [address] Marilin Kaiser M.D. [address] [place] [address] 07/08/2024 1:30 PM DYE OPERATOR Appointment Department of Radiology in [address] [address] Marilin Kaiser M.D. [address] [place] [address] 07/09/2024 9:45 AM DYE OPERATOR Appointment Department of Radiology in [address] [address] Marilin Kaiser M.D. [address] [place] [address] 08/19/2024 12:45 PM DYE OPERATOR Appointment Department of Radiology in [address] [address] Marilin Kaiser M.D. [address] [place] [address] 08/19/2024 1:00 PM DYE OPERATOR Appointment Department of Radiology in [place], [place] [address] [place] [address] Marilin Kaiser M.D. [address] [facility] [place] [address] 08/20/2024 9:45 AM DYE OPERATOR Appointment Department of Radiology in [place], [place] [address] [place] [address] Marilin Kaiser M.D. 404 [facility] [place] [address] documented as of this encounter Results * [...] (HCC) documented in this encounter Care Teams Oil Speculator Relationship Specialty Start Date End Date Elsewhere, Pcp PCP - General Family Medicine 08/31/20 documented as of this encounter
--- OUTSIDE RECORDS SUMMARY | 2024-02-17 20:51 | XMS_ITS | Data Portability ---
Author Organization [facility], [facility] Address [address] [place] [address] Care Team Providers Care Supervisor [employer] Name Role Phone BRADY WATERS Primary Care [...] PSA, serum or plasma 2022 023 [email or web address] [facility], [address], [place], [address], 10/16/2022 09:54:18 urinalysi s, dipstick 2022 023 [facility], [address], [place], [address], 11/28/2022 10:45:27 urinalysi s, dipstick 2023 024 [facility], [address], [place], [address], 09/02/2023 14:46:28 urinalysi s, dipstick 2023 024 [facility], [address], [place], [address], 11/04/2023 14:27:12 culture, urine 2023 024 [facility], [address], [address], [place], [address], 11/05/2023 10:11:07 Referral None recorded. Procedures None [...] 50 mg tablet,ex tended release 2022 023 [facility], [address] [place] [address], [address], 09/02/2023 14:26:08 Cipro 500 mg tablet 2022 023 [facility], [facility] [place], [address], 09/02/2023 14:25:04 Eligard 45 mg (6 month) subcutane ous syringe 2022 023 [email or web address] 0 [facility], [address] [place] [address], [address], 01/23/2023 12:48:05 Patient TargetsNo targets recorded. Patient InstructionsNo instructions recorded. Reason for Referral None Reported. Results Created Date Observation Date Name Description Value Unit Range Abnormal Flag LastModifiedBy Organization Detail LastModifiedTime 11/29/19 23 11/28/2022 urina lysis , dipst ick Color-Status Yellow Not Available [facility] [address], [place], [address], 11/28/2022 10:30:30 11/29/19 23 11/28/2022 urina lysis , dipst ick pH-Status 7.5 Not Available [facility] [address], [place], [address], 11/28/2022 10:30:30 11/29/19 23 11/28/2022 urina lysis , dipst ick Blood-Status Large Not Available [facility] [address], [place], [address], 11/28/2022 10:30:30 11/29/19 23 11/28/2022 urina lysis , dipst ick Leuko-Status Trace Not Available [facility] [address], [place], [address], 11/28/2022 10:30:30 09/02/19 24 09/02/2023 urina lysis , dipst ick Color-Status Yellow Not Available [facility] [address], [place], [address], 09/02/2023 14:28:46 09/02/19 24 09/02/2023 urina lysis , dipst ick Clarity-Stat us Clear Not Available [facility] [address], [place], [address], 09/02/2023 14:28:46 09/02/19 24 09/02/2023 urina lysis , dipst ick Sp [place]-Stat us 1.020 Not Available [facility] [address], [place], [address], 09/02/2023 14:28:46 09/02/19 24 09/02/2023 urina lysis , dipst ick pH-Status 7.0 Not Available [facility] [address], [place], [address], 09/02/2023 14:28:46 09/02/19 24 09/02/2023 urina lysis , dipst ick Nitrates-Sta tus negati ve Not Available [facility] [address], [place], [address], 09/02/2023 14:28:46 09/02/19 24 09/02/2023 urina lysis , dipst ick Blood-Status Modera te Not Available [facility] [address], [place], [address], 09/02/2023 14:28:46 09/02/19 24 09/02/2023 urina lysis , dipst ick Leuko-Status Trace Not Available [facility] [address], [place], [address], 09/02/2023 14:28:46 09/02/19 24 09/02/2023 urina lysis , dipst ick Specimen Type Voided Not Available [facility] [address], [place], [address], 09/02/2023 14:28:46 09/02/19 24 09/02/2023 urina lysis , dipst ick Performed by Carlos jenkins RN Not Available [facility] [address], [place], [address], 09/02/2023 14:28:46 11/04/19 24 11/04/2023 URINE CULTU RE final report MICROB IOLOGY RESULT S Not Available [facility] [address], [place], [address], 11/05/2023 10:11:06 11/04/19 24 11/04/2023 urina lysis , dipst ick Color-Status Yellow Not Available [facility] [address], [place], [address], 11/04/2023 14:02:20 11/04/19 24 11/04/2023 urina lysis , dipst ick Clarity-Stat us Clear Not Available [facility] [address], [place], [address], 11/04/2023 14:02:20 11/04/19 24 11/04/2023 urina lysis , dipst ick Sp [place]-Stat us 1.020 Not Available [facility] [address], [place], [address], 11/04/2023 14:02:20 11/04/19 24 11/04/2023 urina lysis , dipst ick pH-Status 7.0 Not Available [facility] [address], [place], [address], 11/04/2023 14:02:20 11/04/19 24 11/04/2023 urina lysis , dipst ick Protein-Stat us >=9.0 Not Available [facility] [address], [place], [address], 11/04/2023 14:02:20 11/04/19 24 11/04/2023 urina lysis , dipst ick Urobilinogen -Status 0.2 Not Available [facility] [address], [place], [address], 11/04/2023 14:02:20 11/04/19 24 11/04/2023 urina lysis , dipst ick Nitrates-Sta tus negati ve Not Available [facility] [address], [place], [address], 11/04/2023 14:02:20 11/04/19 24 11/04/2023 urina lysis , dipst ick Blood-Status Modera te Not Available [facility] [address], [place], [address], 11/04/2023 14:02:20 11/04/19 24 11/04/2023 urina lysis , dipst ick Leuko-Status Trace Not Available [facility] [address], [place], [address], 11/04/2023 14:02:20 11/04/19 24 11/04/2023 urina lysis , dipst ick Specimen Type Voided Not Available [facility] [address], [place], [address], 11/04/2023 14:02:20 11/04/19 24 11/04/2023 urina lysis , dipst ick Performed by haja RN Not Available [facility] [address], [place], [address], 11/04/2023 14:02:20 10/11/19 23 09/17/2022 CT, urogr am No observ ation record ed. [email or web address] [facility] [address] [facility], [place], [address], 10/10/2022 16:57:24 11/30/19 23 11/28/2022 bladd er scan (PROC ) No observ ation record ed. BARCODE Not Available 11/29/2022 09:07:29 01/18/20 23 01/10/2023 PET-C T, skull base to mid-t high scan No observ ation record ed. [email or web address] Not Available 01/17/2023 15:31:54 Result Notes None recorded. Procedures Surgical History Date Name Laterality Status Provider Name and Address Organization Details Recorded Time 4 Urinalysis completed Marc kang [facility] 11/04/2023 14:02:05 4 Bladder Scan completed Severino Rodrigues MD [address] [place] [address],[address], [place], [address], [facility] 11/04/2023 14:13:12 4 Urinalysis completed Severino Rodrigues MD [address] [place] [address],[address], [place], [address], [facility] 09/02/2023 14:26:49 4 Bladder Scan completed Severino Rodrigues MD [address] [place] [address],[address], [place], [address], [place] [facility] 09/02/2023 14:26:41 3 Bladder Scan completed Severino Rodrigues MD [address] [place] [address],[address], [place], [address], [facility] 01/23/2023 11:45:38 3 [facility] 12:47:33 3 Bladder Scan completed Severino Rodrigues MD [address] [place] [address],[address], [place], [address], [facility] 11/28/2022 10:30:26 3 CYSTOURETHROSCO PY, WITH CALIBRATION AND/OR DILATION OF URETHRAL STRICTURE OR STENOSIS (SURG) [facility] 11/15/2022 11:26:31 3 Cystoscopy- male completed Severino Rodrigues MD [address] [place] [address],[address], [place], [address], [facility] 10/15/2022 22:46:40 2 MOVEMENT THERAPIST/blood draw completed Severino Rodrigues MD [address] [place] [address],[address], [place], [address], [facility] 05/02/2022 16:17:09 9 colonoscopy completed Severino Rodrigues MD [address] [place] [address],[address], [address], [facility] 07/23/2022 11:34:54 Imaging Results Imaging Date Name Status LastModified by [facility] Details LastModified Time 09/17/2022 CT, urogram completed [email or web address] [facility] [address] [place], [address], 10/10/2022 16:57:24 11/28/2022 bladder scan (PROC) completed BARCODE Information not available 11/29/2022 09:07:29 01/10/2023 PET-CT, skull base to mid-thigh scan completed [email or web address] Information not available 01/17/2023 15:31:54 Procedure Notes None recorded. Medical Equipment None Reported. Allergies Allergen ID Allergen Name Allergen Category Reaction Reaction Severity Criticality Documentation Date Start Date Code Code System Note Provider Name and Address Organization Details Recorded Time 368000 allopurin ol medicatio n Not available Not available Not available 01/21/20202018 519 RxNorm Not Available [facility] 0 00:42:15 Medications Name Sig Start Date [...] Updated DateTime 10/15/2022 185.42 cm 28.8 kg/m2 46215.14 farhana Rodrigues MD [address] [place] [address],[address], [address] [place] [address], [facility] 10/15/2022 14:42:13 Date Recorded Body height Body mass index (BMI) Body weight Provider Name and Address Organization Details Last Updated DateTime 11/28/2022 185.42 cm 28.8 kg/m2 98351.14 g Ro Benton [facility] 11/28/2022 10:26:34 Date Recorded Body height Body mass index (BMI) Body weight Provider Name and Address Organization Details Last Updated DateTime 01/23/2023 185.42 cm 28.8 kg/m2 97179.14 farhana Rodrigues MD [address] [place] [address],[address] 01/23/2023 11:42:10 Date Recorded Body height Provider Name an d Address Organization Details Last Updated DateTime 09/02/2023 185.42 cm Severino Rodrigues MD [address] [place] [address],[address] 09/02/2023 14:24:14 Date Recorded Body height Body mass index (BMI) Body weight Provider Name and Address Organization Details Last Updated DateTime 11/04/2023 185.42 cm 27.7 kg/m2 55279.4 farhana Rodrigues MD [address] [place] [address],[address] [facility] 11/04/2023 14:09:38 Social History Question Answer Notes LastModified by Organizat ion Details LastModified Time Tobacco Smoking Status Former Smoker Severino Rodrigues MD [address] [place] [address],[address], [address] [place] [address], [facility] 05/02/2022 16:16:26 What Is Your Level [...] trivalent, PF 04/14/2018 completed Severino Rodrigues MD [address] [place] [address],[address], [address], [facility] 09/02/2023 14:24:21 Influenza, adjuvanted, trivalent, PF 05/13/2017 completed Severino Rodrigues MD [address] [place] [address],[address], [address], [facility] 09/02/2023 14:24:21 Influenza, adjuvanted, trivalent, PF 06/03/2019 completed Severino Rodrigues MD [address] [place] [address],[address], [address], [facility] 09/02/2023 14:24:21 zoster recombinant 01/04/2021 lg kelly MD [address] [place] [address],[address], [address], [facility] 09/02/2023 14:24:21 zoster recombinant 03/08/2021 completed Severino kelly MD [address] [place] [address],[address], [address], [facility] 09/02/2023 14:24:21 Influenza, high-dose, quadrivalent, PF 05/11/2020 completed Severino Rodrigues MD [address] [place] [address],[address], [address], [facility] 09/02/2023 14:24:21 Influenza, high-dose, quadrivalent, PF 05/24/2021 completed Severino Rodrigues MD [address] [place] [address],[address], [place], [address], [facility] 09/02/2023 14:24:21 Influenza, adjuvanted, quadrivalent, PF 04/13/2022 completed Severino Rodrigues MD [address] [place] [address],[address], [place], [address], [facility] 09/02/2023 14:24:21 COVID-19, mRNA, LNP-S, PF, 30 mcg/0.3 mL dose 08/31/2020 completed Severino Rodrigues MD [address] [place] [address],[address], [place], [address], [facility] 09/02/2023 14:24:21 COVID-19, mRNA, LNP-S, PF, 30 mcg/0.3 mL dose 09/21/2020 completed Severino Rodrigues MD [address] [place] [address],[address], [place], [address], [facility] 09/02/2023 14:24:21 COVID-19, mRNA, LNP-S, PF, 30 mcg/0.3 mL dose 05/24/2021 completed Severino Rodrigues MD [address] [place] [address],[address], [place], [address], [facility] 09/02/2023 14:24:21 COVID-19, mRNA, LNP-S, PF, 30 mcg/0.3 mL dose, dave-sucrose 10/30/2021 completed Severino Rodrigues MD [address] [place] [address],[address], [place], [address], [facility] 09/02/2023 14:24:21 COVID-19, mRNA, LNP-S, bivalent, PF, 50 mcg/0.5 mL or 25mcg/0.25 mL dose 05/21/2022 completed Severino Rodrigues MD [address] [place] [address],[address], [place], [address], [facility] 09/02/2023 14:24:21 influenza, unspecified formulation 05/24/2008 completed Severino Rodrigues MD [address] [place] [address],[address] [place] [address], [address], [facility] 09/02/2023 14:24:21 Tdap 10/03/2005 completed Severino Rodrigues MD [address] [place] [address],[address] [place] [address], [address], [facility] 09/02/2023 14:24:21 Tdap 05/13/2017 completed Severino Rodrigues MD [address] [place] [address],[address], [address], [facility] 09/02/2023 14:24:21 Influenza, high-dose, trivalent, PF 08/08/2016 completed Severino Rodrigues MD [address] [place] [address],[address] [place] [address], [address], [facility] 09/02/2023 14:24:21 Influenza, high-dose, trivalent, PF 06/14/2014 completed Severino Rodrigues MD [address] [place] [address],[address], [address], [facility] 09/02/2023 14:24:21 pneumococcal polysaccharide PPV23 04/14/2018 completed Severino Rodrigues MD [address] [place] [address],[address], [address], [facility] 10/15/2022 14:42:46 Pneumococcal conjugate PCV 13 05/02/2015 completed Severino Rodrigues MD [address] [place] [address], [address], [facility] 10/15/2022 14:42:46 Past Encounters Encounter ID Performer Location Encounter Start Date Encounter Closed Date Diagnosis/Indication Diagnosis SNOMED-CT Code [id number] MD BAILEE Lee_Dilma [address] [place] [address] 05/02/2022 16:02:47 05/07/2022 10:01:50 Carcinoma of prostate 271776697 Lower urin maria de jesus tract symptoms due to benign prostatic hypertrophy 39198898744339 Increased frequency of urination 134300777 [id number] MD Monico Lee [address] [place] [address] 07/23/2022 11:22:14 07/27/2022 09:43:06 Carcinoma of prostate 622363755 Lower urin maria de jesus tract symptoms due to benign prostatic hypertrophy 72337002824560 Increased frequency of urination 028833594 [id number] MD BAILEE Lee_Edingavin [address] [place] [address] 10/15/2022 14:28:15 10/19/2022 12:05:16 Carcinoma of prostate 698489449 Lower urin maria de jesus tract symptoms due to benign prostatic hypertrophy 79068328351718 Increased frequency of urination 949365425 Urethral stricture 47737 002 Leonidas hematuria 17020261 5 [id number] MD BAILEE Lee_Dilma [address] [place] [address] 11/28/2022 10:16:48 11/30/2022 11:21:06 Carcinoma of prostate 971526607 Lower urin maria de jesus tract symptoms due to benign prostatic hypertrophy 01667109682515 Leonidas hematuria 14273519 5 Increased frequency of urination 760510248 Urethral stricture 78717 002 [id number] MD BAILEE Lee_Dilma [address] [place] [address] 01/23/2023 11:17:58 01/31/2023 09:40:24 Urethral stricture 83432138 Carcinoma of prostate 25 4558870 Lower urin maria de jesus tract symptoms due to benign prostatic hypertrophy 59999869577474 Increased frequency of urination 160769226 Leonidas hematuria 47520152 5 [id number] MD BAILEE Lee_Dilma [address] [place] [address] 09/02/2023 14:10:29 09/03/2023 11:47:06 Carcinoma of prostate 498058901 Urethral stricture 17345 002 Lower urin maria de jesus tract symptoms due to benign prostatic hypertrophy 02194454543123 Increased frequency of urination 815919008 Leonidas hematuria 92198757 5 Hydronephrosis 97917510 [id number] MD Monico Lee [address] [place] [address] 11/04/2023 13:47:57 11/05/2023 10:03:04 Carcinoma of prostate 482947388 Hydronephrosis 19260539 Urethral stricture 31732 002 Lower urin maria de jesus tract symptoms due to benign prostatic hypertrophy 20667714000842 Increased frequency of urination 211817042 Leonidas hematuria 06587092 5 Health Concerns Section Related Observation LastModified by Organization Detai ls LastModified Time None Recorded Concern Status LastModified by Organization Details LastModified Time None Recorded Advance Directives Directive None Recorded Payers Encounter Date Sequence Insurance Name Policy Number Policy Simon Covered Member ID Simon Member ID Guarantor Name 10/15/2022 1 [place] [id number] Solis Thibodeaux [id number] Solis Galoman 11/28/2022 1 [place] [id number] Solis Thibodeaux [id number] Solis Ann Thibodeaux 01/23/2023 1 [place] [id number] Solis Thibodeaux [id number] Solis Ann Thibodeaux 09/02/2023 1 [place] [id number] Solis Thibodeaux [id number] Solis Galoman 11/04/2023 1 [place] [id number] Solis Galoman [id number] Solis Ann Mcgehee Notes Date Note Type Note Provider Name and Address Organization Details Recorded Time 10/15/2022 text/html HPI Notes: 77 yo male dx with prostate cancer (T1c - Reading 3+4 = 7 - bilateral) on 11/28/10 [...] 14 (08/21/18) PSMA PET scan (11/30/2021) at [facility] - enhancing lesion in the prostate [...] cm) cyst (lower pole) Severino Rodrigues MD [address] [place] [address],[address], [place], [address], [facility] 10/15/2022 22:54:50 11/28/2022 text/html HPI Notes: [...] 14 (08/21/18) PSMA PET scan (11/30/2021) at [facility] - enhancing lesion in the prostate [...] cyst (lower pole) Severino Rodrigues MD [address] [facility],[address], [place], [address], [facility] 11/28/2022 10:50:54 01/23/2023 text/html HPI Notes: [...] 14 (08/21/18) PSMA PET scan (11/30/2021) at [facility] - enhancing lesion in the prostate [...] lymph nodes seen Severino Rodrigues MD [address] [facility],[address], [place], [address], [place] [facility] 01/27/2023 19:22:51 09/02/2023 text/html HPI Notes: 77 yo male dx with prostate cancer (T1c - Reading 3+4 = 7 - bilateral) on 11/28/10 [...] of prostate (02/01/23) Pathology - Left - Reading 5+5=10 - 6/6 cores (40%) - + perineural invasion - Right - Reading 4+5=9 - 6/6 cores (20%) - + [...] 14 (08/21/18) PSMA PET scan (11/30/2021) at [facility] - enhancing lesion in the prostate [...] lymph nodes seen Severino Rodrigues MD [address] [facility],[address], [place], [address], [facility] 09/02/2023 19:32:47 11/04/2023 text/html HPI Notes: 78 yo male dx with prostate cancer (T1c - Reading 3+4 = 7 - bilateral) on 11/28/10 [...] of prostate (02/01/23) Pathology - Left - Reading 5+5=10 - 6/6 cores (40%) - + [...] 14 (08/21/18) PSMA PET scan (11/30/2021) at [facility] - enhancing lesion in the prostate [...] active lymph nodes seen Severino Rodrigues MD [address] [facility],[address], [place], [address], [place] [facility] 11/04/2023 22:17:07
[2024-02-17 21:16] VITALS: BP 158/96; PULSE 110; RESP 20; TEMP 36.4; O2SAT 96
== END 2024-02-17 21:27 | disposition short-term general hospital (02) ==
PROVIDERS: Emergency Provider Emergency Medicine; PCP Family Medicine
DX: R33.9 Retention of urine, unspecified (principal); C61 Malignant neoplasm of prostate; C79.51 Secondary malignant neoplasm of bone
CPT/HCPCS: 51702; 51798; 99283; A9270

== ENCOUNTER 2024-02-18 10:16 | Observation (INO) | payer MEDICARE, BC, SELFPAY ==
[2024-02-18] VITALS (11 sets, daily range): BP systolic 102–158; BP diastolic 65–98; PULSE 90–108; RESP 16–20; TEMP 36.2–36.4; O2SAT 96–99; BMI 23.7
--- NOTE | 2024-02-18 10:25 | ED_ITS ---
HPI - General Adult General Time Seen by Provider: 10:27 Date Seen: 02/18/24 Chief complaint: Dizziness/Vertigo Stated complaint: coming from [facility] Time Seen by Provider: 02/18/24 10:21 Source: patient, RN notes reviewed and old records reviewed Mode of arrival: ambulatory Limitations: no limitations History of Present Illness HPI narrative: This 78-year-old male was brought over from [facility] where he was having a telehealth visit with Oncology Dr. Kaiser. His labs done this morning showed significant hypocalcemia with a calcium level of 5.8, anemia with a hemoglobin of 7.3. He is feeling dizzy, lightheaded, fatigued. No chest pain or shortness of breath. He has noted maybe a little muscle cramps in his legs. He was hospitalized overnight on 02/10/2024 with hypocalcemia. He is on oral outpatient supplementation, PTH was elevated. His hypocalcemia it is worse than it was during that hospitalization. 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 Patient now has a Mccann catheter in place, went to [place] last night as he had urinary retention and catheter could not be placed here. He states urology came in, did cystoscopy and wire placement for placement of his catheter. Patient also received 1 unit packed red blood cells for a hemoglobin of 7.5 on 02/12/2024. Related Data Home Medications ?Medication ?Instructions ?Recorded ?Confirmed rosuvastatin 5 mg tablet 5 mg PO DAILY 03/28/22 02/18/24 tamsulosin 0.4 mg capsule 0.8 mg PO DAILY 03/28/22 02/18/24 cyanocobalamin (vitamin B-12) 500 mcg PO Q3D 01/31/23 02/18/24 1,000 mcg capsule leuprolide acetate (6 month) 45 mg 45 mg IM [id number] 01/31/23 02/18/24 intramuscular syringe kit (Lupron Depot) potassium chloride 20 mEq 40 meq PO BID 10/21/23 02/18/24 tablet,extended release ibuprofen 200 mg tablet (Advil) 400 mg PO Q8H PRN 12/18/23 02/18/24 lisinopril 20 mg tablet 10 mg PO QDAY 02/18/24 02/18/24 Previous Rx's ?Medication ?Instructions ?Recorded oxycodone-acetaminophen 5 mg-325 1 tab PO Q6H PRN pain #60 tabs 02/05/24 mg tablet (Percocet) calcium carbonate 1,000 mg (2 x 500 mg calcium 02/11/24 (1,250 mg)) PO QID #360 tabs cholecalciferol (vitamin D3) 50 50 mcg PO DAILY #30 caps 02/11/24 mcg (2,000 unit) capsule (Vitamin D3) Allergies Allergy/AdvReac Type Severity Reaction Status Date / Time allopurinol Allergy Intermediate Verified 02/18/24 10:24 Review of Systems Status of ROS: Reports: 6 or more systems reviewed and unremarkable except as noted in History and below 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 of unspecified nasolacrimal duct (ICD-10) Rash in adult ?R21 - Rash and other nonspecific skin eruption (ICD-10) Hypokalemia ?E87.6 - Hypokalemia (ICD-10) Hypocalcemia ?E83.51 - Hypocalcemia (ICD-10) 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 He is . His closest contact, primary support and healthcare power of flash welder is Paulette Russo, his ex- and current friend. Nonsmoker. Former moderate alcohol consumption but none for several months. What is your current living situation?: I presently have a place to live Problems where you live: no known problems Problems where you live details: n/a In the past 12 months, utilities in danger of being shut off: no In past 12 months, lack of transportation kept you from medical appts, meetings, work, or getting things needed for daily living: no In the past 12 mos, have been you worried that your food would run out before you had money to buy more?: never true In the past 12 mos, the food you bought just didn't last and you didn't have money to buy more?: never true Highest level of school completed/degree received: Master's degree Smoking Status: Never smoker Do you use any of these nicotine containing products: None How often do you have a drink containing alcohol: never AUDIT-C Alcohol total score: 0 Non-prescribed substance use: denies use Caffeine: Yes How often does anyone, including family, friends and others, physically hurt you : never How often does anyone, including family, friends and others, insult or talk down to you: never How often does anyone, including family, friends and others, threaten you with harm: never How often does anyone, including family, friends and others, scream or curse at you: never service: No Exam Const: Vital Signs, click to edit/add: Vital Signs - 24 hr 02/18/24 10:21 02/18/24 10:31 02/18/24 10:43 Temperature 97.5 F L Pulse Rate [Pulse Oximeter] Respiratory Rate 16 20 18 Blood Pressure [Ri ght Upper Arm] 102/65 Pulse Oximetry 99 Oxygen Delivery Me thod Room Air 02/18/24 10:44 02/18/24 11:10 02/18/24 11:29 Temperature Pulse Rate [Pulse Oximeter] 90 90 Respiratory Rate 20 Blood Pressure [Ri ght Upper Arm] 131/98 H Pulse Oximetry 96 96 Oxygen Delivery Me thod Room Air 78-year-old man is seen in exam room 7. He is alert, interactive, no apparent distress. Slender patient with tanned skin. Pupils equal round reactive, sclera clear. Speaking in complete sentences. No Chvostek sign. Symmetrical facial function. Lungs are clear, good air entry, no wheezing crackles. CV regular rate and rhythm, no murmur, normal S1-S2, no S3-S4. Abdomen is soft, nontender, nondistended. He has a catheter/Mccann in place, blood-tinged but clear urine in the bag. He has no lower extremity edema. Documenting provider has reviewed patient's vital signs: yes Course Course ED Course: Patient obviously needs calcium replacement, have ordered 1 g IV calcium gluconate. Will type and screen for blood, will talk to [facility] and get their thoughts on this patient. He obviously is going to need hospitalization for the hypocalcemia, probable endocrine evaluation at some point. Consultations Consultation #1: Did speak with Abigail as well as Dr. Kaiser with from [facility] regarding this patient. He has had recent hypocalcemia, did get hospitalized last week. He has had 1 treatment with Pluvicto which is a radionucleotide treatment that he is getting at [facility]. Hypocalcemia can be associated with this. On February 09 his parathyroid hormone was elevated. He may have a separate process going on. He also requires a unit of packed red blood cells. Will talk to our hospitalist here to see if they think he should stay here. Ultimately, he may need endocrinology referral and evaluation. Abigail did states that they would typically just give 1 unit packed red blood cells, this will be ordered. Time: 10:33 Consultation #2: Reviewed with hospitalist Dr. Lindquist. She does remember this patient from last week. She accepts care of this patient. Time: 10:56 Vital Signs Vital signs: Initial Vital Signs Temperature 97.5 F L 02/18/24 10:21 Temperature Source Temporal Artery Scan 02/18/24 10:21 Respiratory Rate 16 02/18/24 10:21 Blood Pressure 102/65 02/18/24 10:21 Blood Pressure Mean 77 02/18/24 10:21 Blood Pressure Position Sitting 02/18/24 10:21 Pulse Oximetry 99 02/18/24 10:21 Oxygen Delivery Method Room Air 02/18/24 10:21 Vital Signs Temperature 97.5 F L 02/18/24 10:21 Respiratory Rate 16 02/18/24 10:21 Blood Pressure 102/65 02/18/24 10:21 Pulse Oximetry 99 07/16/24 10:21 Oxygen Delivery Method Room Air 02/18/24 10:21 Temperature 97.5 F L 02/18/24 10:21 Pulse Rate 90 02/18/24 11:29 Respiratory Rate 20 02/18/24 11:29 Blood Pressure 131/98 H 02/18/24 11:29 Pulse Oximetry 96 02/18/24 11:29 Oxygen Delivery Method Room Air 02/18/24 11:29 Medications Administered Medications: Discontinued Medications Generic Name Dose Route Start Last Admin Trade Name Yovanny PRN Reason Stop Dose Admin Calcium Gluconate/Sodium Chloride 1,000 mg in 50 mls @ 100 mls/hr 02/18/24 10:39 02/18/24 11:16 Calcium Gluc 1,000mg/50 Ml IVPB 02/18/24 11:08 100 mls/hr ONCE ONE Administration Medical Decision Making Lab Data Lab results reviewed: Yes I reviewed the patient's lab results Lab results narrative: Labs done today through [facility] show white blood count of 4220, hemoglobin of 7.3, platelet count of a 443222, note platelet count is continuing to diminish and he is certainly thrombocytopenic now. Chemistries show normal electrolytes with the exception of a calcium of 5.8 and an ionized calcium being low at 0.83. His alkaline phosphatase is that 499. PSA is greater than 100. PTH done on 02/10/2020 for was elevated at 314.2. His 25 hydroxy vitamin-D level on 02/10/2024 was normal at 38. Labs: Lab Results 02/18/24 Range/Units 09:02 Blood Type O Positive Antibody Screen NEGATIVE Crossmatch (AHG) See Detail ECG Data Attestation: I personally reviewed and interpreted this ECG as follows: (Sinus rhythm with premature atrial complexes seen in bigeminy pattern. No ischemic change. QT corrected 474 milliseconds.) Prior ECG tracings: available for review (This pattern is unchanged from his EKG on 02/10/2024. QT calculated is a little longer today.) Discharge Plan Discharge Clinical Impression: Adenocarcinoma of prostate, Hypocalcemia Anemia Qualifiers: Anemia type: unspecified type Qualified Code(s): D64.9 - Anemia, unspecified Patient Disposition: Admitted As Observation
--- OUTSIDE RECORDS SUMMARY | 2024-02-18 11:03 | XMS_ITS ---
Author Organization [facility] Address [address] [place] [address] Care Team Providers Care Candy Packer Name Role Phone Unavailable Unavailable Unavailable Surgery Details Not on file Complications Check Surgery Details section. Procedure Estimated Blood Loss Check Surgery Details section. Procedure Findings Check Surgery Details section. Procedure Specimens Taken Check Surgery Details section.
--- OUTSIDE RECORDS SUMMARY | 2024-02-18 11:03 | XMS_ITS | Encounter Summary ---
Author Organization [facility] Address [address] [place] [address] Care Team Providers Care Fire Captain Marine Name Role Phone Elsewhere, Pcp Primary Care Provider Unavailabl e Encounter Details Date Type Department Care Team (Late st Contact Info) Description 01/27/2024 Clinical Communication Department of Radiology, [facility], in [place], [place] [address] [place] [phone] Elizabeth Barragan R.N. [address] [place] [address] Social History Tobacco Use Types Packs/Day Years [...] any clubs o r organizations such as druze groups, unions, fraternal or athletic groups, or [...] and heating? Not hard at all 01/24/2023 [facility] [place] [facility] Occupat ional Health - Occupational [...] your living situation today? I have a [facility] place to live 01/24/2023 Education Answer Date Recorded What is the highest level of school you have completed or the highest degree you have received? Master's degree (e.g., MA, MS, Gail, MEd, MANAGER OF RADIOLOGY, JAMIE) 12/21/2021 Sex and Gender Information Value [...] CDT Appointment Department of Radiology in [address] [address] Marilin Kaiser M.D. [address] [place] [address] 03/04/2024 1:30 PM CDT Appointment Department of Radiology in [address] [address] Marilin Kaiser M.D. [address] [place] [address] 03/05/2024 9:15 AM CDT Appointment Department of Radiology in [address] [address] Marilin Kaiser M.D. [address] [place] [address] 04/15/2024 1:15 PM CDT Appointment Department of Radiology in [address] [address] Marilin Kaiser M.D. [address] [place] [address] 04/15/2024 1:30 PM CDT Appointment Department of Radiology in [address] [address] Marilin Kaiser M.D. [address] [place] [address] 04/16/2024 9:15 AM CDT Appointment Department of Radiology in [address] [address] Marilin Kaiser M.D. [address] [place] [address] 05/27/2024 12:45 PM CDT Appointment Department of Radiology in [place] [address] [place] [address] Marilin Kaiser M.D. [address] [place] [address] 05/27/2024 1:00 PM CDT Appointment Department of Radiology in [address] [address] Marilin Kaiser M.D. [address] [place] [address] 05/28/2024 9:15 AM CDT Appointment Department of Radiology in [address] [address] Marilin Kaiser M.D. [address] [place] [address] 07/08/2024 1:15 PM GEOMETRY TUTOR Appointment Department of Radiology in [address] [address] Marilin Kaiser M.D. [address] [place] [address] 07/08/2024 1:30 PM GEOMETRY TUTOR Appointment Department of Radiology in [address] [address] Marilin Kaiser M.D. [address] [place] [address] 07/09/2024 9:45 AM GEOMETRY TUTOR Appointment Department of Radiology in [place], [place] [address] [place] [address] Marilin Kaiser M.D. [address] [place] [address] 08/19/2024 12:45 PM GEOMETRY TUTOR Appointment Department of Radiology in [place], [place] [address] [place] [address] Marilin Kaiser M.D. [address] [place] [address] 08/19/2024 1:00 PM GEOMETRY TUTOR Appointment Department of Radiology in [place] [address] [place] [address] Marilin Kaiser M.D. [address] [place] [address] 08/20/2024 9:45 AM GEOMETRY TUTOR Appointment Department of Radiology in [place] [address] [place] [address] Marilin Kaiser M.D. [address] [place] [address] documented as of this encounter Visit Diagnoses Not on filedocumented in this encounter Care Teams Fire Captain Marine Relationship Specialty Start Date End Date Elsewhere, Pcp PCP - General Family Medicine 08/31/20 documented as of this encounter
--- OUTSIDE RECORDS SUMMARY | 2024-02-18 11:03 | XMS_ITS | Clinical Summary ---
Author Organization [facility] Address [address] [place] [address] Care Team Providers Care Billboard Installer Name Role Phone Elsewhere, Pcp Primary Care Provider Unavailabl e Source Comments Patient records contain information from all sites at [facility]. For routine questions regarding patient records, call [phone] during business hours, M-F 8:00 AM - 5:00 PM Central Time. Record requests for emergency care only can be directed to [phone] at any time.[facility] Allergies Active Allergy Reactions Criticality Noted Date [...] IIA(T1c, N0, M0, PSA: Less than 10, [place] 7) - Unsigned Encounters Date Type Department Care Team Description 02/05/2024 Clinical Communication Department of Radiology in [place], [place] [address] [place] [address] Peterson Rodas 01/27/2024 Clinical Communication Department of Radiology, [facility] in [place], [place] [address] [place] [address] Elizabeth Barragan R.N. 01/23/2024 9:03 AM CDT - 01/23/2024 11:59 PM CDT Hospital Encounter Department of Radiology in [address] [address] Marilin Kaiser M.D. Primary Malignant Neoplasm Of Prostate (HCC) Discharge Disposition: Home or Self Care 01/22/2024 11:46 AM CDT - 01/22/2024 11:59 PM CDT Hospital Encounter Department of Radiology in [address] [address] Marilin Kaiser M.D. Primary Malignant Neoplasm Of Prostate (HCC) Discharge Disposition: Home or Self Care 01/22/2024 11:46 AM CDT - 01/22/2024 2:02 PM CDT Hospital Encounter Department of Radiology in [address] [address] Marilin Kaiser M.D. Dick, Michael D, P.A.-C. Primary Malignant Neoplasm Of Prostate (HCC) 01/02/2024 11:55 AM CDT Ancillary Procedure Department of Radiology in [place], [place] [address] [place] [address] Evelina Ontiveros APRN, C.N.P., D.N.P. Primary Malignant Neoplasm Of Prostate (HCC); Secondary Malignant Neoplasm Bone (HCC) 01/02/2024 Clinical Communication Department of Radiology in [place], [place] [address] [place] [address] Peterson Rodas 01/02/2024 Orders Only Department of Radiology in [place], [place] [address] [place] [address] Evelina Ontiveros APRN C.N.PLanden, D.N.P. Primary Malignant Neoplasm Of Prostate (HCC) (Primary Dx); Secondary Malignant Neoplasm Bone (HCC) 12/27/2023 Documentation Department of Radiology in [place], [place] [address] [place] [address] Evelina Ontiveros APRN C.N.P., D.N.P. 12/27/2023 Orders Only Department of Oncology in [place], [place] [address] [place] [address] Renetta Tan, R.NLanden Primary Malignant Neoplasm Of Prostate (HCC) (Primary Dx) 12/26/2023 Orders Only Department of Oncology in [place], [place] [address] [address] Renetta Tan, RLandenNLanden Secondary Malignant Neoplasm Bone (HCC) (Primary Dx); Primary Malignant Neoplasm Of Prostate (HCC) 12/26/2023 Orders Only Department of Oncology in [place], [place] [address] [place] [address] Marilin Kaiser M.D. 12/26/2023 Orders Only Department of Oncology in [place], [place] [address] [place] [address] Marilin Kaiser M.D. 12/24/2023 10:33 AM CDT - 12/24/2023 11:59 PM CDT Hospital Encounter Department of Radiology in [place], [place] [address] [address] Marilin Kaiser M.D. Primary Malignant Neoplasm Of Prostate (HCC) Discharge Disposition: Home or Self Care 12/18/2023 Orders Only Department of Oncology in [place], [place] [address] [place] [address] Marilin Kaiser M.D. Primary Malignant Neoplasm Of [...] heating? Not hard at all 01/24/2023 [facility] Occupat ional Health - Occupational [...] Master's degree (e.g., MA, MS, Gail, MEd, INVESTOR RELATIONS MANAGER, JAMIE) 12/21/2021 Sex and Gender Information [...] 36.1 ??C (97 ??F) 08/01/2023 11:36 AM M48/M60 TANK DRIVER Respiratory Rate - - Oxygen Saturation 99% 01/22/2024 1:59 PM CDT Inhaled Oxygen Concentration - - Weight 92.7 kg (204 lb 5.9 oz) 08/01/2023 11:36 AM M48/M60 TANK DRIVER Height - - Body Mass Index - - Plan of Treatment Upcoming Encounters Date Type Department Care Team (Late st Contact Info) Description 03/04/2024 1:15 PM CDT Appointment Department of Radiology in [place], [place] [address] [place] [address] Marilin Kaiser M.D. [address] [place] [address] 03/04/2024 1:30 PM CDT Appointment Department of Radiology in [place], [place] [address] [place] [address] Marilin Kaiser M.D. [address] [place] [address] 03/05/2024 9:15 AM CDT Appointment Department of Radiology in [address] [address] Marilin Kaiser M.D. [address] [place] [address] 04/15/2024 1:15 PM CDT Appointment Department of Radiology in [address] [address] Marilin Kaiser M.D. [address] [place] [address] 04/15/2024 1:30 PM CDT Appointment Department of Radiology in [address] [address] Marilin Kaiser M.D. [address] [place] [address] 04/16/2024 9:15 AM CDT Appointment Department of Radiology in [address] [address] Marilin Kaiser M.D. [address] [place] [address] 05/27/2024 12:45 PM CDT Appointment Department of Radiology in [address] [address] Marilin Kaiser M.D. [address] [place] [address] 05/27/2024 1:00 PM CDT Appointment Department of Radiology in [address] [address] Marilin Kaiser M.D. [address] [place] [address] 05/28/2024 9:15 AM CDT Appointment Department of Radiology in [address] [address] Marilin Kaiser M.D. [address] [place] [address] 07/08/2024 1:15 PM M48/M60 TANK DRIVER Appointment Department of Radiology in [address] [address] Marilin Kaiser M.D. [address] [place] [address] 07/08/2024 1:30 PM M48/M60 TANK DRIVER Appointment Department of Radiology in [address] [address] Marilin Kaiser M.D. [address] [place] [address] 07/09/2024 9:45 AM M48/M60 TANK DRIVER Appointment Department of Radiology in [address] [address] Marilin Kaiser M.D. [address] [place] [address] 08/19/2024 12:45 PM M48/M60 TANK DRIVER Appointment Department of Radiology in [address] [address] Marilin Kaiser M.D. [address] [place] [address] 08/19/2024 1:00 PM M48/M60 TANK DRIVER Appointment Department of Radiology in [place], [place] [address] [place] [address] Marilin Kaiser M.D. [address] [place] [address] 08/20/2024 9:45 AM M48/M60 TANK DRIVER Appointment Department of Radiology in [place], [place] [address] [place] [address] Marilin Kaiser M.D. [address] [place] [address] Health Maintenance Due Date Last Done Comments Hepatitis C Screening 1945 COVID-19 Vaccine ( season) 2023 05/22/2023, 05/21/2022, 10/30/2021, Additional history exists Depression Screening (Annual PHQ-2) 08/05/2023 Influenza Vaccine (#1) 2024 , 04/13/2022, 05/24/2021, Additional history exists Creatinine Level (Kidney Function Test) 02/17/2025 02/18/2024, 09/13/2023, 12/24/2022, Additional history exists Potassium Level 02/17/2025 02/18/2024, 02/0 04/2024, 12/24/2022, Additional history exists Sodium Level 02/17/2025 02/18/2024, 02/0 04/2024, 12/24/2022, Additional history exists DTaP,Tdap,and Td Vaccines (3 [...] Procedure Name Priority Date/Time Associated Diagnosis Comments EXTI BASIC METABOLIC PANEL, S/P Routine 02/18/2024 12:03 AM CDT NM POST TX IRIS-177 PSMA MONITORING WB [...] CDT Primary Malignant Neoplasm Of Prostate (HCC) CT ABDOMEN PELVIS WITH IV CONTRAST RAD [...] lesions. Degenerative skeletal changes. Procedure Note Ismael Klnie M.D., Ph.D. - 01/23/2024 EXAM: NM POST [...] vertex to the thighs with low dose, [id number] CT for attenuation correction and anatomic localization,and [...] findings on the noncontrast low-dose CT: Right lpscfLeds-G-Jrge tip at the low SVC. Stable 3 [...] PSMA expression score: 3 Marilin Kaiser M.D. [facility] * NM Therapy Iris-177 PSMA [...] Iris-177 PSMA cycle 1. Marilin Kaiser M.D. [facility] [place] PROCEDURES * Interpretation of Outside MR [...] Recently Relevant to Health Maintenance Care Teams Billboard Installer Relationship Specialty Start Date End Date Elsewhere, Pcp PCP - General Family Medicine 08/31/20
--- OUTSIDE RECORDS SUMMARY | 2024-02-18 11:03 | XMS_ITS | Encounter Summary ---
Author Organization [facility] Address [address] [place] [address] Care Team Providers Care Physical Therapy Technician Name Role Phone Elsewhere, Pcp Primary Care Provider Unavailabl e Encounter Details Date Type Department Care Team (Late st Contact Info) Description 02/05/2024 Clinical Communication Department of Radiology in [place], [place] [address] [place] [address] Peterson Rodas Social History Tobacco Use Types [...] and heating? Not hard at all 01/24/2023 [facility] - Occupational [...] your living situation today? I have a [facility] place to live 01/24/2023 Education Answer Date Recorded What is the highest level of school you have completed or the highest degree you have received? Master's degree (e.g., MA, MS, Gail, MEd, INSURANCE POLICY CLERK, JAMIE) 12/21/2021 Sex and Gender Information Value Date Recorded Sex Assigned at Male 12/21/2021 7:22 AM CDT Gender Identity Male 12/21/2021 7:22 AM CDT Sexual Orientation Straight 12/21/2021 7: 22 AM CDT documented as of this encounter Plan of Treatment Upcoming Encounters Date Type Department Care Team (Late st Contact Info) Description 03/04/2024 1:15 PM CDT Appointment Department of Radiology in [address] [address] Marilin Kaiser M.D. [address] [place] [address] 03/04/2024 1:30 PM CDT Appointment Department of Radiology in [address] [address] Marilin Kaiser M.D. [address] [place] [address] 03/05/2024 9:15 AM CDT Appointment Department of Radiology in [address] [address] Marilin Kaiser M.D. [address] [place] [address] 04/15/2024 1:15 PM CDT Appointment Department of Radiology in [address] [address] Marilin Kaiser M.D. [address] [place] [address] 04/15/2024 1:30 PM CDT Appointment Department of Radiology in [address] [address] Marilin Kaiser M.D. [address] [place] [address] 04/16/2024 9:15 AM CDT Appointment Department of Radiology in [address] [address] Marilin Kaiser M.D. [address] [place] [address] 05/27/2024 12:45 PM CDT Appointment Department of Radiology in [address] [address] Marilin Kaiser M.D. [address] [place] [address] 05/27/2024 1:00 PM CDT Appointment Department of Radiology in [address] [address] Marilin Kaiser M.D. [address] [place] [address] 05/28/2024 9:15 AM CDT Appointment Department of Radiology in [address] [address] Marilin Kaiser M.D. [address] [place] [address] 07/08/2024 1:15 PM CATTLE DRIVER Appointment Department of Radiology in [address] [address] Marilin Kaiser M.D. [address] [place] [address] 07/08/2024 1:30 PM CATTLE DRIVER Appointment Department of Radiology in [address] [address] Marilin Kaiser M.D. [address] [place] [address] 07/09/2024 9:45 AM CATTLE DRIVER Appointment Department of Radiology in [address] [address] Marilin Kaiser M.D. [address] [place] [address] 08/19/2024 12:45 PM CATTLE DRIVER Appointment Department of Radiology in [address] [address] Marilin Kaiser M.D. [address] [place] [address] 08/19/2024 1:00 PM CATTLE DRIVER Appointment Department of Radiology in [address] [address] Marilin Kaiser M.D. [address] [facility] [place] [address] 08/20/2024 9:45 AM CATTLE DRIVER Appointment Department of Radiology in [place], [place] [address] [place] [address] Marilin Kaiser M.D. [address] [facility] [place] [address] documented as of this encounter Visit Diagnoses Not on filedocumented in this encounter Care Teams Physical Therapy Technician Relationship Specialty Start Date End Date Elsewhere, Pcp PCP - General Family Medicine 08/31/20 documented as of this encounter
--- OUTSIDE RECORDS SUMMARY | 2024-02-18 11:03 | XMS_ITS | Referral Summary ---
Author Organization [facility] Address [address] [place] [address] Care Team Providers Care Printed Circuit Board Panels Trimmer Name Role Phone Elsewhere, Pcp Primary Care Provider Unavailabl e Source Comments Patient records contain information from all sites at [facility]. For routine questions regarding patient records, call [phone] during business hours, M-F 8:00 AM - 5:00 PM Central Time. Record requests for emergency care only can be directed to [phone] at any time.[facility] Encounters Date Type Department Care Team Description 02/05/2024 Clinical Communication Department of Radiology in [place], [place] [address] [place] [address] Peterson Rodas 01/27/2024 Clinical Communication Department of Radiology, [facility] in [place], [place] [address] [place] [address] Elizabeth Barragan R.N. 01/23/2024 9:03 AM CDT - 01/23/2024 11:59 PM CDT Hospital Encounter Department of Radiology in [address] [address] Marilin Kaiser M.D. Primary Malignant Neoplasm Of Prostate (HCC) Discharge Disposition: Home or Self Care 01/22/2024 11:46 AM CDT - 01/22/2024 11:59 PM CDT Hospital Encounter Department of Radiology in [place], [place] [address] [place] [address] Marilin Kaiser M.D. Primary Malignant Neoplasm Of Prostate (HCC) Discharge Disposition: Home or Self Care 01/22/2024 11:46 AM CDT - 01/22/2024 2:02 PM CDT Hospital Encounter Department of Radiology in [place], [place] [address] [place] [address] Marilin Kaiser M.D. Dick, Michael D, P.A.-C. Primary Malignant Neoplasm Of Prostate (HCC) 01/02/2024 Clinical Communication Department of Radiology in [place], [place] [address] [place] [address] Peterson Rodas 01/02/2024 11:55 AM CDT Ancillary Procedure Department of Radiology in [place], [place] [address] [place] [address] Evelina Ontiveros APRN, C.N.P., D.N.P. Primary Malignant Neoplasm Of Prostate (HCC); Secondary Malignant Neoplasm Bone (HCC) 01/02/2024 Orders Only Department of Radiology in [place], [place] [address] [place] [address] Evelina Ontiveros APRN, C.N.P., D.N.P. Primary Malignant Neoplasm Of Prostate (HCC) (Primary Dx); Secondary Malignant Neoplasm Bone (HCC) 12/27/2023 Documentation Department of Radiology in [place], [place] [address] [place] [address] Evelina Ontiveros APRN, C.N.P., D.N.P. 12/27/2023 Orders Only Department of Oncology in [place], [place] [address] [place] [address] Renetta Tan RTony Primary Malignant Neoplasm Of Prostate (HCC) (Primary Dx) 12/26/2023 Orders Only Department of Oncology in [place], [place] [address] [place] [address] Renetta Tan, R.Cande. Secondary Malignant Neoplasm Bone (HCC) (Primary Dx); Primary Malignant Neoplasm Of Prostate (HCC) 12/26/2023 Orders Only Department of Oncology in [place], [place] [address] [place] [address] Marilin Kaiser M.D. 12/26/2023 Orders Only Department of Oncology in [place], [place] [address] [place] [address] Marilin Kaiser M.D. 12/24/2023 10:33 AM CDT - 12/24/2023 11:59 PM CDT Hospital Encounter Department of Radiology in [place], [place] [address] [place] [address] Marilin Kaiser M.D. Primary Malignant Neoplasm Of Prostate (HCC) Discharge Disposition: Home or Self Care 12/18/2023 Orders Only Department of Oncology in [place], [place] [address] [place] [address] Marilin Kaiser M.D. Primary Malignant Neoplasm Of [...] often do you attend chur ch or orthodoxy services? Never 12/21/2021 Do you belong to any clubs o r organizations such as mormonism groups, unions, fraternal or athletic groups, or [...] and heating? Not hard at all 01/24/2023 [facility] - Occupational Stress [...] your living situation today? I have a [facility] place to live 01/24/2023 Education Answer Date Recorded What is the highest level of school you have completed or the highest degree you have received? Master's degree (e.g., LETTY, MS, Gail, MEd, BUS AIDE, JAMIE) 12/21/2021 Sex and Gender Information Value Date Recorded Sex Assigned at Male 12/21/2021 7:22 AM CDT Gender Identity Male 12/21/2021 7:22 AM CDT Sexual Orientation Straight 12/21/2021 7: 22 AM CDT Last Filed Vital Signs Vital Sign Reading Time Taken Comments Blood Pressure 123/65 01/22/2024 1:59 PM CDT Pulse 72 01/22/2024 1:59 PM CDT Temperature 36.1 ??C (97 ??F) 08/01/2023 11:[address] ENGINEER Respiratory Rate - - Oxygen Saturation 99% 01/22/2024 1:59 PM CDT Inhaled Oxygen Concentration - - Weight 92.7 kg (204 lb 5.9 oz) 08/01/2023 11:[address] ENGINEER Height - - Body Mass Index - - Plan of Treatment Upcoming Encounters Date Type Department Care Team (Late st Contact Info) Description 03/04/2024 1:15 PM CDT Appointment Department of Radiology in [address] [address] Marilin Kaiser M.D. [address] [place] [address] 03/04/2024 1:30 PM CDT Appointment Department of Radiology in [address] [address] Marilin Kaiser M.D. [address] [place] [address] 03/05/2024 9:15 AM CDT Appointment Department of Radiology in [address] [address] Marilin Kaiser M.D. [address] [place] [address] 04/15/2024 1:15 PM CDT Appointment Department of Radiology in [place] [address] [place] [address] Marilin Kaiser M.D. [address] [place] [address] 04/15/2024 1:30 PM CDT Appointment Department of Radiology in [address] [address] Marilin Kaiser M.D. [address] [place] [address] 04/16/2024 9:15 AM CDT Appointment Department of Radiology in [address] [address] Marilin Kaiser M.D. [address] [place] [address] 05/27/2024 12:45 PM CDT Appointment Department of Radiology in [address] [address] Marilin Kiaser M.D. [address] [place] [address] 05/27/2024 1:00 PM CDT Appointment Department of Radiology in [address] [address] Marilin Kaiser M.D. [address] [place] [address] 05/28/2024 9:15 AM CDT Appointment Department of Radiology in [address] [address] Marilin Kaiser M.D. [address] [place] [address] 07/08/2024 1:[address] ENGINEER Appointment Department of Radiology in [address] [address] Marilin Kaiser M.D. [address] [place] [address] 07/08/2024 1:[address] ENGINEER Appointment Department of Radiology in [address] [address] Marilin Kaiser M.D. [address] [place] [address] 07/09/2024 9:[address] ENGINEER Appointment Department of Radiology in [address] [address] Marilin Kaiser M.D. [address] [place] [address] 08/19/2024 12:[address] ENGINEER Appointment Department of Radiology in [address] [address] Marilin Kaiser M.D. [address] [place] [address] 08/19/2024 1:[address] ENGINEER Appointment Department of Radiology in [address] [address] Marilin Kaiser M.D. [address] [facility] [place] [place] [phone] 08/20/2024 9:[address] ENGINEER Appointment Department of Radiology in [place], [place] [address] [place] [address] Marilin Kaiser M.D. [address] [facility] [place] [address] Procedures Procedure Name Priority Date/Time Associated Diagnosis [...] vertex to the thighs with low dose, oav-yesirmykarde-szmtkxdbf CT for attenuation correction and anatomic localization,and [...] findings on the noncontrast low-dose CT: Right uzvbjWejs-N-Jozp tip at the low SVC. Stable 3 [...] Iris-177 PSMA cycle 1. Marilin Kaiser M.D. [facility] PROCEDURES * Interpretation of Outside MR [...] Document Viewer, or as an image in [email or web address]. If a re-interpretation or overread is required [...] Recently Relevant to Health Maintenance Care Teams Printed Circuit Board Panels Trimmer Relationship Specialty Start Date End Date Elsewhere, Pcp PCP - General Family Medicine 08/31/20
--- OUTSIDE RECORDS SUMMARY | 2024-02-18 11:03 | XMS_ITS ---
Author Organization [facility] Address [address] [place] [address] Care Team Providers Care Cream Beater Name Role Phone Elsewhere, Pcp Primary Care [...] Treated Prescribed Fraction Dose Prescribed Total Dose [id number] 08/01/2023 8 1 of 1 2,000 cGy 2,000 cGy [id number] 07/31/2023 7 3 of 3 1,000 cGy 3,000 cG y [id number] 07/30/2023 6 3 of 3 1,000 cGy 3,000 cG y Reference Point Last Treated On Elapsed Days Session Dose Total Dose [id number] 08/01/2023 8 2,000 cGy 2,000 cGy [id number] HumR 07/31/2023 7 1,000 cGy 3,000 cGy [id number] HumL 07/30/2023 6 1,000 cGy 3,000 cGy
--- OUTSIDE RECORDS SUMMARY | 2024-02-18 11:04 | XMS_ITS | Encounter Summary ---
Author Organization [facility] Address [address] [place] [address] Care Team Providers Care Line Haul Driver Name Role Phone Elsewhere, Pcp Primary Care Provider Unavailabl e Reason for Referral * Outpatient (Routine) - Pending Review Specialty Diagnoses / Procedures Referred By Morenitaac t Referred To Contact Radiology Diagnoses Primary Malignant Neoplasm Of Prostate (HCC) Marilin Kaiser M.D. [address] [place] [address] [facility] Referral ID Status Reason Start Date Expiration Date V isits Requested Visits Authorized [id number] Pending Review 12/27/2023 06/27/2025 1 1 Reason for Visit * Outpatient (Routine) - Pending Review Specialty Diagnoses / Procedures Referred By Javon lopez Referred To Contact Radiology Diagnoses Primary Malignant Neoplasm Of Prostate (HCC) Marilin Kaiser M.D. [address] [place] [address] [facility] Referral ID Status Reason Start Date Expiration Date V isits Requested Visits Authorized [id number] Pending Review 12/27/2023 06/27/2025 1 1 Encounter Details Date Type Department Care Team (Latest Contact Info) Description 01/22/2024 11:46 AM CDT - 01/22/2024 2:02 PM CDT Hospital Encounter Department of Radiology in [place], [place] [address] [place] [address] Marilin Kaiser M.D. [address] [place] [phone] Miguelito Booth P.A.-C. [address] [place] [address] Primary Malignant Neoplasm Of Prostate (HCC) Social [...] any clubs o r organizations such as mormon groups, unions, fraternal or athletic groups, or [...] and heating? Not hard at all 01/24/2023 [facility] - Occupational [...] Master's degree (e.g., MA, MS, Gail, MEd, WAREHOUSE UNLOADER, JAMIE) 12/21/2021 Sex and Gender Information Value [...] CDT SUBJECTIVE REFERRING PROVIDER Marilin Kaiser M.D. [facility] [address] [facility] [address] NUCLEAR MEDICINE PROVIDER Miguelito Booth P.A.-C. Ismael [...] Patient follows with a Dr. Rodrigues at [facility]. His next follow up appointment is [...] the care of Dr. Rachael Sanford at [facility] in [place], [place]. 01/2011 - Biological/Targeted/Hormone Therapy Lupron 30 [...] and Procedures Cryotherapy with Dr. Yu at [facility]. The patient underwent placement of 13 cryo [...] 11/30/2021 Critical Imaging PSMA PET scan at [facility] demonstrated radiotracer positive lesion in the [...] PROSTATE, RIGHT, NEEDLE BIOPSY: 1. Prostatic adenocarcinoma, [place] score 4 + 5 = 9 (ISUP [...] Common Hereditary Cancers Panel (47 genes) via [email or web address]. See test report fordetails regarding genes analyzed and testing methodologies. RESULT: NEGATIVE FOR CLINICALLY ACTIONABLE VARIANTS No clinically actionable (pathogenic or likely pathogenic) variants were detected in the genes analyzed. One variant of uncertain significance was detected: POLE c.2134C>G (p.Suh351Uhn). No laboratory classifies this variant as clinically-actionable [...] Pluvicto therapy today. Labs were done at [facility] and the results are located in the [...] Patient follows with a Dr. Rodrigues at [facility]. His next follow up appointment is [...] physicians, nurse practitioners/physician assistants, nurses and other child support agent that specialize in this treatment. Also, reviewed the importance of maintaining ongoing care with [facility] and local oncology team, as well as [...] PM CDT Appointment Department of Radiology in [place], [place] [address] [place] [address] Marilin Kaiser M.D. [address] [place] [address] 03/04/2024 1:30 PM CDT Appointment Department of Radiology in [address] [address] Marilin Kaiser M.D. [address] [place] [address] 03/05/2024 9:15 AM CDT Appointment Department of Radiology in [address] [address] Marilin Kaiser M.D. [address] [place] [address] 04/15/2024 1:15 PM CDT Appointment Department of Radiology in [address] [address] Marilin Kaiser M.D. [address] [place] [address] 04/15/2024 1:30 PM CDT Appointment Department of Radiology in [address] [address] Marilin Kaiser M.D. [address] [place] [address] 04/16/2024 9:15 AM CDT Appointment Department of Radiology in [place], [place] [address] [place] [address] Marilin Kaiser M.D. [address] [place] [address] 05/27/2024 12:45 PM CDT Appointment Department of Radiology in [address] [address] Marilin Kaiser M.D. [address] [place] [address] 05/27/2024 1:00 PM CDT Appointment Department of Radiology in [address] [address] Marilin Kaiser M.D. [address] [place] [address] 05/28/2024 9:15 AM CDT Appointment Department of Radiology in [address] [address] Marilin Kaiser M.D. [address] [place] [address] 07/08/2024 1:15 PM EARLY CHILDHOOD EDUCATION SPECIALIST Appointment Department of Radiology in [address] [address] Marilin Kaiser M.D. [address] [place] [address] 07/08/2024 1:30 PM EARLY CHILDHOOD EDUCATION SPECIALIST Appointment Department of Radiology in [address] [address] Marilin Kaiser M.D. [address] [place] [address] 07/09/2024 9:45 AM EARLY CHILDHOOD EDUCATION SPECIALIST Appointment Department of Radiology in [place], [place] [address] [place] [address] Marilin Kaiser M.D. [address] [place] [address] 08/19/2024 12:45 PM EARLY CHILDHOOD EDUCATION SPECIALIST Appointment Department of Radiology in [address] [address] Marilin Kaiser M.D. [address] [place] [address] 08/19/2024 1:00 PM EARLY CHILDHOOD EDUCATION SPECIALIST Appointment Department of Radiology in [address] [address] Marilin Kaiser M.D. [address] [place] [address] 08/20/2024 9:45 AM EARLY CHILDHOOD EDUCATION SPECIALIST Appointment Department of Radiology in [address] [address] Marilin Kaiser M.D. [address] [place] [address] Scheduled Referrals Name Type Priority Associated Diagnoses Order Schedule Radiology - Nuclear medicine consult (clinic) Outpatient Referral Routine Primary Malignant Neoplasm Of Prostate (HCC) Once for 1 Occurrences starting 01/22/2024 until 01/22/2024 documented as of this encounter Visit Diagnoses Diagnosis Primary Malignant Neoplasm Of Prostate (HCC) documented in this encounter Care Teams Line Haul Driver Relationship Specialty Start Date End Date Elsewhere, Pcp PCP - General Family Medicine 08/31/20 documented as of this encounter
--- OUTSIDE RECORDS SUMMARY | 2024-02-18 11:04 | XMS_ITS | Encounter Summary ---
Author Organization [facility] Address [address] [place] [address] [address] Care [address] Man Name Role Phone Elsewhere, Pcp Primary Care Provider Unavailabl e Reason for Referral * Outpatient (Routine) - Authorized Specialty Diagnoses / Procedures Referred By Javon t Referred To Contact Diagnoses Primary Malignant Neoplasm Of Prostate (HCC) Procedures NM Post Therapy Iris-177 PSMA Monitoring Whole Body with SPECT CT Multiple Marilin Kaiser M.D. [address] [place] [address] [facility] Referral ID Status Reason Start Date Expiration Date V isits Requested Visits Authorized [id number] Authorized 12/27/2023 12/26/2024 8 8 * Outpatient (Routine) - Authorized Specialty Diagnoses / Procedures Referred By Contac t Referred To Contact Diagnoses Primary Malignant Neoplasm Of Prostate (HCC) Procedures NM Therapy Iris-177 PSMA Marilin Kaiser M.D. [address] [place] [address] [facility] Referral ID Status Reason Start Date Expiration Date V isits Requested Visits Authorized [id number] Authorized 12/27/2023 12/26/2024 8 8 * Outpatient (Routine) - Authorized Specialty Diagnoses / Procedures Referred By Contac t Referred To Contact Marilin Kaiser M.D. [address] [place] [address] [facility] Referral ID Status Reason Start Date Expiration Date V isits Requested Visits Authorized [id number] Authorized 12/27/2023 06/27/2025 1 1 * Outpatient (Routine) - Authorized Specialty Diagnoses / Procedures Referred By Contac t Referred To Contact Diagnoses Primary Malignant Neoplasm Of Prostate (HCC) Procedures NM Post Therapy Iris-177 PSMA Monitoring Whole Body with SPECT CT Multiple Marilin Kaiser M.D. [address] [place] [address] [facility] Referral ID Status Reason Start Date Expiration Date V isits Requested Visits Authorized [id number] Authorized 12/27/2023 12/26/2024 8 8 * Outpatient (Routine) - Authorized Specialty Diagnoses / Procedures Referred By Contac t Referred To Contact Diagnoses Primary Malignant Neoplasm Of Prostate (HCC) Procedures NM Therapy Iris-177 PSMA Marilin Kaiser M.D. [address] [place] [address] [facility] Referral ID Status Reason Start Date Expiration Date V isits Requested Visits Authorized [id number] Authorized 12/27/2023 12/26/2024 8 8 * Outpatient (Routine) - Authorized Specialty Diagnoses / Procedures Referred By Contdagoberto t Referred To Contact Marilin Kaiser M.D. [address] [place] [address] [facility] Referral ID Status Reason Start Date Expiration Date V isits Requested Visits Authorized [id number] Authorized 12/27/2023 06/27/2025 1 1 * Outpatient (Routine) - Authorized Specialty Diagnoses / Procedures Referred By Morenitaac t Referred To Contact Diagnoses Primary Malignant Neoplasm Of Prostate (HCC) Procedures NM Post Therapy Irsi-177 PSMA Monitoring Whole Body with SPECT CT Multiple Marilin Kaiser M.D. [address] [place] [address] [facility] Referral ID Status Reason Start Date Expiration Date V isits Requested Visits Authorized [id number] Authorized 12/27/2023 12/26/2024 8 8 * Outpatient (Routine) - Authorized Specialty Diagnoses / Procedures Referred By Javon t Referred To Contact Diagnoses Primary Malignant Neoplasm Of Prostate (HCC) Procedures NM Therapy Iris-177 PSMA Marilin Kaiser M.D. [address] [place] [address] [facility] Referral ID Status Reason Start Date Expiration Date V isits Requested Visits Authorized [id number] Authorized 12/27/2023 12/26/2024 8 8 * Outpatient (Routine) - Authorized Specialty Diagnoses / Procedures Referred By Javon t Referred To Contact Marilin Kaiser M.D. [address] [place] [address] [facility] Referral ID Status Reason Start Date Expiration Date V isits Requested Visits Authorized [id number] Authorized 12/27/2023 06/27/2025 1 1 * Outpatient (Routine) - Authorized Specialty Diagnoses / Procedures Referred By Contac t Referred To Contact Diagnoses Primary Malignant Neoplasm Of Prostate (HCC) Procedures NM Post Therapy Iris-177 PSMA Monitoring Whole Body with SPECT CT Multiple Job, Marilin, M.D. [address] [place] [address] [facility] Referral ID Status Reason Start Date Expiration Date V isits Requested Visits Authorized [id number] Authorized 12/27/2023 12/26/2024 8 8 * Outpatient (Routine) - Authorized Specialty Diagnoses / Procedures Referred By Contac t Referred To Contact Diagnoses Primary Malignant Neoplasm Of Prostate (HCC) Procedures NM Therapy Iris-177 PSMA Marilin Kaiser M.D. [address] [place] [address] [facility] Referral ID Status Reason Start Date Expiration Date V isits Requested Visits Authorized [id number] Authorized 12/27/2023 12/26/2024 8 8 * Outpatient (Routine) - Authorized Specialty Diagnoses / Procedures Referred By Contac t Referred To Contact Marilin Kaiser M.D. [address] [place] [address] [facility] Referral ID Status Reason Start Date Expiration Date V isits Requested Visits Authorized [id number] Authorized 12/27/2023 06/27/2025 1 1 * Outpatient (Routine) - Authorized Specialty Diagnoses / Procedures Referred By Contac t Referred To Contact Diagnoses Primary Malignant Neoplasm Of Prostate (HCC) Procedures NM Post Therapy Iris-177 PSMA Monitoring Whole Body with SPECT CT Marilin Bland M.D. [address] [place] [address] [facility] Referral ID Status Reason Start Date Expiration Date V isits Requested Visits Authorized [id number] Authorized 12/27/2023 12/26/2024 8 8 * Outpatient (Routine) - Authorized Specialty Diagnoses / Procedures Referred By Morenitaac t Referred To Contact Diagnoses Primary Malignant Neoplasm Of Prostate (HCC) Procedures NM Therapy Iris-177 PSMA Marilin Kaiser M.D. [address] [place] [address] [facility] Referral ID Status Reason Start Date Expiration Date V isits Requested Visits Authorized [id number] Authorized 12/27/2023 12/26/2024 8 8 * Outpatient (Routine) - Authorized Specialty Diagnoses / Procedures Referred By Javon t Referred To Contact Marilin Kaiser M.D. [address] [place] [address] [facility] Referral ID Status Reason Start Date Expiration Date V isits Requested Visits Authorized [id number] Authorized 12/27/2023 06/27/2025 1 1 * Outpatient (Routine) - Authorized Specialty Diagnoses / Procedures Referred By Javon t Referred To Contact Diagnoses Primary Malignant Neoplasm Of Prostate (HCC) Procedures NM Post Therapy Iris-177 PSMA Monitoring Whole Body with SPECT CT Multiple Marilin Kaiser M.D. [address] [place] [address] [facility] Referral ID Status Reason Start Date Expiration Date V isits Requested Visits Authorized [id number] Authorized 12/27/2023 12/26/2024 8 8 * Outpatient (Routine) - Authorized Specialty Diagnoses / Procedures Referred By Contac t Referred To Contact Diagnoses Primary Malignant Neoplasm Of Prostate (HCC) Procedures NM Therapy Iris-177 PSMA Marilin Kaiser M.D. [address] [place] [address] [facility] Referral ID Status Reason Start Date Expiration Date V isits Requested Visits Authorized [id number] Authorized 12/27/2023 12/26/2024 8 8 * Outpatient (Routine) - Pending Review Specialty Diagnoses / Procedures Referred By Javon lopez Referred To Contact Radiology Diagnoses Primary Malignant Neoplasm Of Prostate (HCC) Marilin Kaiser M.D. [address] [place] [address] [facility] Referral ID Status Reason Start Date Expiration Date V isits Requested Visits Authorized [id number] Pending Review 12/27/2023 06/27/2025 1 1 Encounter Details Date Type Department Care Team (Late st Contact Info) Description 12/27/2023 Orders Only Department of Oncology in [place], [place] [address] [place] [address] Renetta Tan R.N. [address], [place] [address] Primary Malignant Neoplasm Of Prostate (HCC) (Primary [...] How often do you attend chur or quaker services? Never 12/21/2021 Do you belong to any clubs o r organizations such as sabianism groups, unions, fraternal or athletic groups, or [...] and heating? Not hard at all 01/24/2023 [facility] [employer] of Occupat ional Health - Occupational Stress [...] your living situation today? I have a [facility] place to live 01/24/2023 Education Answer Date Recorded What is the highest level of school you have completed or the highest degree you have received? Master's degree (e.g., MA, MS, Gail, MEd, CORRECTIONAL SECURITY OFFICER, JAMIE) 12/21/2021 Sex and Gender Information Value Date Recorded Sex Assigned at Male 12/21/2021 7:22 AM CDT Gender Identity Male 12/21/2021 7:22 AM CDT Sexual Orientation Straight 12/21/2021 7: 22 AM CDT documented as of this encounter Plan of Treatment Upcoming Encounters Date Type Department Care Team (Late st Contact Info) Description 03/04/2024 1:15 PM CDT Appointment Department of Radiology in [place], [place] [address] [place] [address] Marilin Kaiser M.D. [address] [place] [address] 03/04/2024 1:30 PM CDT Appointment Department of Radiology in [address] [address] Marilin Kaiser M.D. [address] [place] [address] 03/05/2024 9:15 AM CDT Appointment Department of Radiology in [address] [address] Marilin Kaiser M.D. [address] [place] [address] 04/15/2024 1:15 PM CDT Appointment Department of Radiology in [address] [address] Marilin Kaiser M.D. [address] [place] [address] 04/15/2024 1:30 PM CDT Appointment Department of Radiology in [address] [address] Marilin Kaiser M.D. [address] [place] [address] 04/16/2024 9:15 AM CDT Appointment Department of Radiology in [address] [address] Marilin Kaiser M.D. [address] [place] [address] 05/27/2024 12:45 PM CDT Appointment Department of Radiology in [address] [address] Marilin Kaiser M.D. [address] [place] [address] 05/27/2024 1:00 PM CDT Appointment Department of Radiology in [place] [address] [place] [address] Marilin Kaiser M.D. [address] [place] [address] 05/28/2024 9:15 AM CDT Appointment Department of Radiology in [address] [address] Marilin Kaiser M.D. [address] [place] [address] 07/08/2024 1:15 PM LETTER STAMPING MACHINE OPERATOR Appointment Department of Radiology in [address] [address] Marilin Kaiser M.D. [address] [place] [address] 07/08/2024 1:30 PM LETTER STAMPING MACHINE OPERATOR Appointment Department of Radiology in [address] [address] Marilin Kaiser M.D. [address] [place] [address] 07/09/2024 9:45 AM LETTER STAMPING MACHINE OPERATOR Appointment Department of Radiology in [address] [address] Marilin Kaiser M.D. [address] [place] [address] 08/19/2024 12:45 PM LETTER STAMPING MACHINE OPERATOR Appointment Department of Radiology in [place], [place] [address] [place] [address] Marilin Kaiser M.D. [address] [place] [address] 08/19/2024 1:00 PM LETTER STAMPING MACHINE OPERATOR Appointment Department of Radiology in [place], [place] [address] [place] [address] Marilin Kaiser M.D. [address] [place] [address] 08/20/2024 9:45 AM LETTER STAMPING MACHINE OPERATOR Appointment Department of Radiology in [place] [address] [place] [address] Marilin Kaiser M.D. [address] [place] [address] Scheduled Orders Name Type Priority Associated Diagnoses [...] vertex to the thighs with low dose, mir-qnbsnetodzuf-ovbdjaqmt CT for attenuation correction and anatomic localization,and [...] findings on the noncontrast low-dose CT: Right wfmwjWhji-J-Xasn tip at the low SVC. Stable 3 mm pulmonary nodule within theleft upper lobe (image 192). Calcified pulmonary granulomas. Vascularcalcifications including the coronary arteries. Gynecomastia. Left ureteral stent. Vasectomy clips. Scattered colonicdiverticula. Anterior abdominal wall injection sites. Scattered scleroticosseous lesions. Degenerative skeletal changes. IMPRESSION: 1. 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 2. No additional foci of Irsi-177 PSMA localization to suggest newmetastasis. 3. No suspicious non-PSMA avid metastatic disease. PSMA expression score: 3 Marilin Kaiser M.D. [facility] NM PROCEDURES * NM Therapy Iris-177 PSMA [...] (HCC) documented in this encounter Care Teams Drive Man Relationship Specialty Start Date End Date Elsewhere, Pcp PCP - General Family Medicine 08/31/20 documented as of this encounter
--- OUTSIDE RECORDS SUMMARY | 2024-02-18 11:04 | XMS_ITS | Encounter Summary ---
Author Organization [facility] Address [address] [place] [address] Care Team Providers Care Co Op Name Role Phone Elsewhere, Pcp Primary Care Provider Unavailabl e Encounter Details Date Type Department Care Team (Late st Contact Info) Description 12/26/2023 Orders Only Department of Oncology in [place], [place] [address] [place] [phone] Marilin Kaiser M.D. [address] [place] [address] Social History Tobacco Use Types Packs/Day Years [...] often do you attend chur ch or zoroastrian services? Never 12/21/2021 Do you belong to [...] and heating? Not hard at all 01/24/2023 [facility]at ional [facility] - [...] your living situation today? I have a [facility] place to live 01/24/2023 Education Answer Date Recorded What is the highest level of school you have completed or the highest degree you have received? Master's degree (e.g., MA, MS, Gail, MEd, WOOD HACKER, JAMIE) 12/21/2021 Sex and Gender Information Value Date Recorded Sex Assigned at Male 12/21/2021 7:22 AM CDT Gender Identity Male 12/21/2021 7:22 AM CDT Sexual Orientation Straight 12/21/2021 7: 22 AM CDT documented as of this encounter Plan of Treatment Upcoming Encounters Date Type Department Care Team (Late st Contact Info) Description 03/04/2024 1:15 PM CDT Appointment Department of Radiology in [place], [place] [address] [place] [address] Marilin Kaiser M.D. [address] [place] [address] 03/04/2024 1:30 PM CDT Appointment Department of Radiology in [place], [place] [address] [place] [address] Marilin Kaiser M.D. [address] [place] [address] 03/05/2024 9:15 AM CDT Appointment Department of Radiology in [address] [address] Marilin Kaiser M.D. [address] [place] [address] 04/15/2024 1:15 PM CDT Appointment Department of Radiology in [address] [address] Marilin Kaiser M.D. [address] [place] [address] 04/15/2024 1:30 PM CDT Appointment Department of Radiology in [address] [address] Marilin Kaiser M.D. [address] [place] [address] 04/16/2024 9:15 AM CDT Appointment Department of Radiology in [address] [address] Marilin Kaiser M.D. [address] [place] [address] 05/27/2024 12:45 PM CDT Appointment Department of Radiology in [address] [address] Marilin Kaiser M.D. [address] [place] [address] 05/27/2024 1:00 PM CDT Appointment Department of Radiology in [address] [address] Marilin Kaiser M.D. [address] [place] [address] 05/28/2024 9:15 AM CDT Appointment Department of Radiology in [place], [place] [address] [place] [address] Marilin Kaiser M.D. [address] [place] [address] 07/08/2024 1:15 PM COPPER PLATE LITHOGRAPHER Appointment Department of Radiology in [place] [address] [place] [address] Marilin Kaiser M.D. [address] [place] [address] 07/08/2024 1:30 PM COPPER PLATE LITHOGRAPHER Appointment Department of Radiology in [place] [address] [place] [address] Marilin Kaiser M.D. [address] [place] [address] 07/09/2024 9:45 AM COPPER PLATE LITHOGRAPHER Appointment Department of Radiology in [place] [address] [place] [address] Marilin Kaiser M.D. [address] [place] [address] 08/19/2024 12:45 PM COPPER PLATE LITHOGRAPHER Appointment Department of Radiology in [place] [address] [place] [address] Marilin Kaiser M.D. [address] [place] [address] 08/19/2024 1:00 PM COPPER PLATE LITHOGRAPHER Appointment Department of Radiology in [place], [place] [address] [place] [address] Marilin Kaiser M.D. [address] [place] [address] 08/20/2024 9:45 AM COPPER PLATE LITHOGRAPHER Appointment Department of Radiology in [address] [address] Marilin Kaiser M.D. [address] [place] [address] documented as of this encounter Visit Diagnoses Not on filedocumented in this encounter Care Teams Co Op Relationship Specialty Start Date End Date Elsewhere, Pcp PCP - General Family Medicine 08/31/20 documented as of this encounter
--- OUTSIDE RECORDS SUMMARY | 2024-02-18 11:04 | XMS_ITS | Encounter Summary ---
Author Organization [facility] Address [address] [place] [address] Care Team Providers Care Yard Manager Name Role Phone Elsewhere, Pcp Primary Care Provider Unavailabl e Encounter Details Date Type Department Care Team (Late st Contact Info) Description 12/26/2023 Orders Only Department of Oncology in [place], [place] [address] [place] [address] Marilin Kaiser M.D. [address] [place] [address] Social History Tobacco Use Types Packs/Day Years [...] heating? Not hard at all 01/24/2023 [facility] of Occupat ional Health [...] your living situation today? I have a [facility] place to live 01/24/2023 Education Answer Date Recorded What is the highest level of school you have completed or the highest degree you have received? Master's degree (e.g., MA, MS, Gail, MEd, DEVELOPMENT ARCHITECT, JAMIE) 12/21/2021 Sex and Gender Information Value Date Recorded Sex Assigned at Male 12/21/2021 7:22 AM CDT Gender Identity Male 12/21/2021 7:22 AM CDT Sexual Orientation Straight 12/21/2021 7: 22 AM CDT documented as of this encounter Plan of Treatment Upcoming Encounters Date Type Department Care Team (Late st Contact Info) Description 03/04/2024 1:15 PM CDT Appointment Department of Radiology in [place], [place] [address] [place] [address] Marilin Kaiser M.D. [address] [place] [address] 03/04/2024 1:30 PM CDT Appointment Department of Radiology in [place], [place] [address] [place] [address] Marilin Kaiser M.D. [address] [place] [address] 03/05/2024 9:15 AM CDT Appointment Department of Radiology in [address] [address] Marilin Kaiser M.D. [address] [place] [address] 04/15/2024 1:15 PM CDT Appointment Department of Radiology in [address] [address] Marilin Kaiser M.D. [address] [place] [address] 04/15/2024 1:30 PM CDT Appointment Department of Radiology in [address] [address] Marilin Kaiser M.D. [address] [place] [address] 04/16/2024 9:15 AM CDT Appointment Department of Radiology in [address] [address] Marilin Kaiser M.D. [address] [place] [address] 05/27/2024 12:45 PM CDT Appointment Department of Radiology in [address] [address] Marilin Kaiser M.D. [address] [place] [address] 05/27/2024 1:00 PM CDT Appointment Department of Radiology in [address] [address] Marilin Kaiser M.D. [address] [place] [address] 05/28/2024 9:15 AM CDT Appointment Department of Radiology in [place], [place] [address] [place] [address] Marilin Kaiser M.D. [address] [place] [address] 07/08/2024 1:15 PM DESTINATION COORDINATOR Appointment Department of Radiology in [place] [address] [place] [address] Marilin Kaiser M.D. [address] [place] [address] 07/08/2024 1:30 PM DESTINATION COORDINATOR Appointment Department of Radiology in [place] [address] [place] [address] Marilin Kaiser M.D. [address] [place] [address] 07/09/2024 9:45 AM DESTINATION COORDINATOR Appointment Department of Radiology in [place] [address] [place] [address] Marilin Kaiser M.D. [address] [place] [address] 08/19/2024 12:45 PM DESTINATION COORDINATOR Appointment Department of Radiology in [place] [address] [place] [address] Marilin Kaiser M.D. [address] [place] [address] 08/19/2024 1:00 PM DESTINATION COORDINATOR Appointment Department of Radiology in [place], [place] [address] [place] [address] Marilin Kaiser M.D. [address] [place] [address] 08/20/2024 9:45 AM DESTINATION COORDINATOR Appointment Department of Radiology in [address] [address] Marilin Kaiser M.D. [address] [place] [address] documented as of this encounter Visit Diagnoses Not on filedocumented in this encounter Care Teams Yard Manager Relationship Specialty Start Date End Date Elsewhere, Pcp PCP - General Family Medicine 08/31/20 documented as of this encounter
--- OUTSIDE RECORDS SUMMARY | 2024-02-18 11:04 | XMS_ITS | Encounter Summary ---
Author Organization [facility] Address [address] [place] [address] Care Team Providers Care Well Shooter Name Role Phone Elsewhere, Pcp Primary Care Provider Unavailabl e Encounter Details Date Type Department Care Team (Late st Contact Info) Description 01/02/2024 Orders Only Department of Radiology in [place], [place] [address] [place] [address] Evelina Ontiveros, AMBER, C.N.P., D.N.P. [address] [place] [address] Primary Malignant Neoplasm Of Prostate (HCC) (Primary [...] often do you attend chur ch or worship services? Never 12/21/2021 Do you belong to [...] hard at all 01/24/2023 [facility] [place] [facility] - Occupational Stress Questionnaire Answer Date [...] your living situation today? I have a [facility] place to live 01/24/2023 Education Answer Date Recorded What is the highest level of school you have completed or the highest degree you have received? Master's degree (e.g., MA, MS, Gail, MEd, TRANSMISSION TECHNICIAN, JAMIE) 12/21/2021 Sex and Gender Information Value Date Recorded Sex Assigned at Male 12/21/2021 7:22 AM CDT Gender Identity Male 12/21/2021 7:22 AM CDT Sexual Orientation Straight 12/21/2021 7: 22 AM CDT documented as of this encounter Plan of Treatment Upcoming Encounters Date Type Department Care Team (Late st Contact Info) Description 03/04/2024 1:15 PM CDT Appointment Department of Radiology in [place], [place] [address] [place] [address] Marilin Kaiser M.D. 404 [place] [address] 03/04/2024 1:30 PM CDT Appointment Department of Radiology in [place], [place] [address] [place] [address] Marilin Kaiser M.D. 404 [place] [address] 03/05/2024 9:15 AM CDT Appointment Department of Radiology in [place], [place] [address] [place] [address] Marilin Kaiser M.D. 404 [place] [address] 04/15/2024 1:15 PM CDT Appointment Department of Radiology in [place], [place] 201 [place] [address] Marilin Kaiser M.D. 404 [place] [address] 04/15/2024 1:30 PM CDT Appointment Department of Radiology in [place] [address] [place] [address] Marilin Kaiser M.D. 404 [place] [address] 04/16/2024 9:15 AM CDT Appointment Department of Radiology in [address] [address] Marilin Kaiser M.D. 404 [place] [address] 05/27/2024 12:45 PM CDT Appointment Department of Radiology in [address] [address] Marilin Kaiser M.D. [address] [place] [address] 05/27/2024 1:00 PM CDT Appointment Department of Radiology in [address] [address] Marilin Kaiser M.D. [address] [place] [address] 05/28/2024 9:15 AM CDT Appointment Department of Radiology in [address] [address] Marilin Kaiser M.D. [address] [place] [address] 07/08/2024 1:15 PM SEWER DIGGER Appointment Department of Radiology in [address] [address] Marilin Kaiser M.D. [address] [place] [address] 07/08/2024 1:30 PM SEWER DIGGER Appointment Department of Radiology in [address] [address] Marilin Kaiser M.D. [address] [place] [address] 07/09/2024 9:45 AM SEWER DIGGER Appointment Department of Radiology in [address] [address] Marilin Kaiser M.D. 404 [place] [address] 08/19/2024 12:45 PM SEWER DIGGER Appointment Department of Radiology in [address] [address] Marilin Kaiser M.D. 404 [place] [address] 08/19/2024 1:00 PM SEWER DIGGER Appointment Department of Radiology in [place], [place] [address] [place] [address] Marilin Kaiser M.D. 404 [address] [facility] [place] [address] 08/20/2024 9:45 AM SEWER DIGGER Appointment Department of Radiology in [place], [place] [address] [place] [address] Marilin Kaiser M.D. 404 [facility] [place] [address] documented as of this encounter Results * [...] (HCC) documented in this encounter Care Teams Well Shooter Relationship Specialty Start Date End Date Elsewhere, Pcp PCP - General Family Medicine 08/31/20 documented as of this encounter
--- OUTSIDE RECORDS SUMMARY | 2024-02-18 11:04 | XMS_ITS | Encounter Summary ---
Author Organization [facility] Address [address] [place] [address] Care Team Providers Care Legislative Correspondent Name Role Phone Elsewhere, Pcp Primary Care Provider Unavailabl e Reason for Referral * Outpatient (Routine) - Authorized Specialty Diagnoses / Procedures Referred By Javon lopez Referred To Contact Diagnoses Primary Malignant Neoplasm Of Prostate (HCC) Procedures NM Post Therapy Iris-177 PSMA Monitoring Whole Body with SPECT CT Marilin Bland M.D. [address] [place] [address] [facility] Referral ID Status Reason Start Date Expiration Date V isits Requested Visits Authorized [id number] Authorized 12/27/2023 12/26/2024 8 8 Reason for Visit * Outpatient (Routine) - Authorized Specialty Diagnoses / Procedures Referred By Javon lopez Referred To Contact Diagnoses Primary Malignant Neoplasm Of Prostate (HCC) Procedures NM Post Therapy Iris-177 PSMA Monitoring Whole Body with SPECT CT Marilin Bland M.D. [address] [place] [address] [facility] Referral ID Status Reason Start Date Expiration Date V isits Requested Visits Authorized [id number] Authorized 12/27/2023 12/26/2024 8 8 Encounter Details Date Type Department Care Team (Latest Contact Info) Description 01/23/2024 9:03 AM CDT - 01/23/2024 11:59 PM CDT Hospital Encounter Department of Radiology in [place], [place] [address] [place] [address] Marilin Kaiser M.D. [address] [place] [address] Primary Malignant Neoplasm Of Prostate [...] and heating? Not hard at all 01/24/2023 [facility] - [...] Master's degree (e.g., MA, MS, Gail, MEd, SOUS CHEF, JAMIE) 12/21/2021 Sex and Gender Information Value [...] PM CDT Appointment Department of Radiology in [place] [address] [place] [address] Marilin Kaiser M.D. [address] [place] [phone] 03/04/2024 1:30 PM CDT Appointment Department of Radiology in [place] [address] [place] [address] Marilin Kaiser M.D. 404 [place] [address] 03/05/2024 9:15 AM CDT Appointment Department of Radiology in [address] [address] Marilin Kaiser M.D. [address] [place] [address] 04/15/2024 1:15 PM CDT Appointment Department of Radiology in [address] [address] Marilin Kaiser M.D. [address] [place] [address] 04/15/2024 1:30 PM CDT Appointment Department of Radiology in [address] [address] Marilin Kaiser M.D. [address] [place] [address] 04/16/2024 9:15 AM CDT Appointment Department of Radiology in [address] [address] Marilin Kaiser M.D. [address] [place] [address] 05/27/2024 12:45 PM CDT Appointment Department of Radiology in [address] [address] Marilin Kaiser M.D. [address] [place] [address] 05/27/2024 1:00 PM CDT Appointment Department of Radiology in [place] [address] [place] [address] Marilin Kaiser M.D. [address] [place] [address] 05/28/2024 9:15 AM CDT Appointment Department of Radiology in [address] [address] Marilin Kaiser M.D. [address] [place] [address] 07/08/2024 1:[address] EQUIPMENT OPERATOR Appointment Department of Radiology in [address] [address] Marilin Kaiser M.D. [address] [place] [address] 07/08/2024 1:[address] EQUIPMENT OPERATOR Appointment Department of Radiology in [address] [address] Marilin Kaiser M.D. [address] [place] [address] 07/09/2024 9:[address] EQUIPMENT OPERATOR Appointment Department of Radiology in [address] [address] Marilin Kaiser M.D. [address] [place] [address] 08/19/2024 12:[address] EQUIPMENT OPERATOR Appointment Department of Radiology in [address] [address] Marilin Kaiser M.D. [address] [place] [address] 08/19/2024 1:[address] EQUIPMENT OPERATOR Appointment Department of Radiology in [place], [place] [address] [place] [address] Marilin Kaiser M.D. [address] [place] [address] 08/20/2024 9:[address] EQUIPMENT OPERATOR Appointment Department of Radiology in [place] [address] [place] [address] Marilin Kaiser M.D. [address] [place] [address] documented as of this encounter Procedures Procedure [...] vertex to the thighs with low dose, ehi-wmstufeakmeo-rxhytbfqn CT for attenuation correction and anatomic localization,and [...] findings on the noncontrast low-dose CT: Right awrnkLrlm-M-Fhgo tip at the low SVC. Stable 3 [...] (HCC) documented in this encounter Care Teams Legislative Correspondent Relationship Specialty Start Date End Date Elsewhere, Pcp PCP - General Family Medicine 08/31/20 documented as of this encounter
--- OUTSIDE RECORDS SUMMARY | 2024-02-18 11:04 | XMS_ITS | Encounter Summary ---
Author Organization [facility] Address [address] [place] [address] Care Team Providers Care Arc And Gas Welder Name Role Phone Elsewhere, Pcp Primary Care Provider Unavailabl e Reason for Referral * Outpatient (Routine) - Authorized Specialty Diagnoses / Procedures Referred By Contac t Referred To Contact Diagnoses Primary Malignant Neoplasm Of Prostate (HCC) Procedures NM Therapy Iris-177 PSMA Marilin Kaiser M.D. [address] [place] [address] [facility] Referral ID Status Reason Start Date Expiration Date V isits Requested Visits Authorized [id number] Authorized 12/27/2023 12/26/2024 8 8 Reason for Visit * Outpatient (Routine) - Authorized Specialty Diagnoses / Procedures Referred By Javon lopez Referred To Contact Diagnoses Primary Malignant Neoplasm Of Prostate (HCC) Procedures NM Therapy Iris-177 PSMA Marilin Kaiser M.D. [address] [place] [address] [facility] Referral ID Status Reason Start Date Expiration Date V isits Requested Visits Authorized [id number] Authorized 12/27/2023 12/26/2024 8 8 Encounter Details Date Type Department Care Team (Latest Contact Info) Description 01/22/2024 11:46 AM CDT - 01/22/2024 11:59 PM CDT Hospital Encounter Department of Radiology in [place], [place] [address] [place] [address] Marilin Kaiser M.D. [address] [place] [phone] Primary Malignant Neoplasm Of Prostate (HCC) Discharge [...] any clubs o r organizations such as christian groups, unions, fraternal or athletic groups, or [...] all 01/24/2023 [facility] - Occupational Stress Questionnaire Answer Date Recorded [...] your living situation today? I have a [facility] place to live 01/24/2023 Education Answer Date Recorded What is the highest level of school you have completed or the highest degree you have received? Master's degree (e.g., MA, MS, Gail, MEd, MEDICAL FRONT DESK COORDINATOR, JAMIE) 12/21/2021 Sex and Gender Information [...] CDT Appointment Department of Radiology in [address] [address] Marilin Kaiser M.D. 404 [place] [address] 03/04/2024 1:30 PM CDT Appointment Department of Radiology in [address] [address] Marilin Kaiser M.D. [address] [place] [address] 03/05/2024 9:15 AM CDT Appointment Department of Radiology in [address] [address] Marilin Kaiser M.D. [address] [place] [address] 04/15/2024 1:15 PM CDT Appointment Department of Radiology in [address] [address] Marilin Kaiser M.D. [address] [place] [address] 04/15/2024 1:30 PM CDT Appointment Department of Radiology in [address] [address] Marilin Kaiser M.D. [address] [place] [address] 04/16/2024 9:15 AM CDT Appointment Department of Radiology in [place], [place] [address] [place] [address] Marilin Kaiser M.D. [address] [place] [address] 05/27/2024 12:45 PM CDT Appointment Department of Radiology in [address] [address] Marilin Kaiser M.D. [address] [place] [address] 05/27/2024 1:00 PM CDT Appointment Department of Radiology in [address] [address] Marilin Kaiser M.D. [address] [place] [address] 05/28/2024 9:15 AM CDT Appointment Department of Radiology in [address] [address] Marilin Kaiser M.D. [address] [place] [address] 07/08/2024 1:15 PM ION EXCHANGE OPERATOR Appointment Department of Radiology in [address] [address] Marilin Kaiser M.D. [address] [place] [address] 07/08/2024 1:30 PM ION EXCHANGE OPERATOR Appointment Department of Radiology in [address] [address] Marilin Kaiser M.D. [address] [place] [address] 07/09/2024 9:45 AM ION EXCHANGE OPERATOR Appointment Department of Radiology in [place] [address] [place] [address] Marilin Kaiser M.D. [address] [place] [address] 08/19/2024 12:45 PM ION EXCHANGE OPERATOR Appointment Department of Radiology in [address] [address] Marilin Kaiser M.D. [address] [place] [address] 08/19/2024 1:00 PM ION EXCHANGE OPERATOR Appointment Department of Radiology in [address] [address] Marilin Kaiser M.D. [address] [place] [address] 08/20/2024 9:45 AM ION EXCHANGE OPERATOR Appointment Department of Radiology in [address] [address] Marilin Kaiser M.D. [address] [place] [address] documented as of this encounter Procedures Procedure [...] mL/hr documented in this encounter Care Teams Arc And Gas Welder Relationship Specialty Start Date End Date Elsewhere, Pcp PCP - General Family Medicine 08/31/20 documented as of this encounter
--- OUTSIDE RECORDS SUMMARY | 2024-02-18 11:04 | XMS_ITS | Encounter Summary ---
Author Organization [facility] Address [address] [place] [address] Care Team Providers Care Armature [employer] Name Role Phone Elsewhere, Pcp Primary Care Provider Unavailabl e Encounter Details Date Type Department Care Team (Latest Contact Info) Description 01/02/2024 11:55 AM CDT Ancillary Procedure Department of Radiology in [place], [place] [address] [place] [address] Evelina Ontiveros, AMBER, C.N.P., D.N.P. [address] [place] [address] Primary Malignant Neoplasm Of Prostate (HCC); Secondary [...] and heating? Not hard at all 01/24/2023 [facility] - [...] your living situation today? I have a [facility] place to live 01/24/2023 Education Answer Date Recorded What is the highest level of school you have completed or the highest degree you have received? Master's degree (e.g., MA, MS, Gail, MEd, TRAVELING INVENTORY ASSOCIATE, JAMIE) 12/21/2021 Sex and Gender Information Value Date Recorded Sex Assigned at Male 12/21/2021 7:22 AM CDT Gender Identity Male 12/21/2021 7:22 AM CDT Sexual Orientation Straight 12/21/2021 7: 22 AM CDT documented as of this encounter Plan of Treatment Upcoming Encounters Date Type Department Care Team (Late st Contact Info) Description 03/04/2024 1:15 PM CDT Appointment Department of Radiology in [place], [place] [address] [place] [address] Marilin Kaiser M.D. 404 [place] [phone] 03/04/2024 1:30 PM CDT Appointment Department of Radiology in [place], [place] [address] [place] [address] Marilin Kaiser M.D. 404 [place] [address] 03/05/2024 9:15 AM CDT Appointment Department of Radiology in [place], [place] [address] [place] [address] Marilin Kaiser M.D. [address] [place] [address] 04/15/2024 1:15 PM CDT Appointment Department of Radiology in [place], [place] [address] [place] [address] Marilin Kaiser M.D. [address] [place] [address] 04/15/2024 1:30 PM CDT Appointment Department of Radiology in [place], [place] [address] [place] [address] Marilin Kaiser M.D. [address] [place] [address] 04/16/2024 9:15 AM CDT Appointment Department of Radiology in [address] [address] Marilin Kaiser M.D. [address] [place] [address] 05/27/2024 12:45 PM CDT Appointment Department of Radiology in [address] [address] Marilin Kaiser M.D. [address] [place] [address] 05/27/2024 1:00 PM CDT Appointment Department of Radiology in [address] [place] [address] Marilin Kaiser M.D. [address] [place] [address] 05/28/2024 9:15 AM CDT Appointment Department of Radiology in [address] [address] Marilin Kaiser M.D. [address] [place] [address] 07/08/2024 1:15 PM IMPROVEMENT ANALYST Appointment Department of Radiology in [address] [address] Marilin Kaiser M.D. [address] [place] [address] 07/08/2024 1:30 PM IMPROVEMENT ANALYST Appointment Department of Radiology in [address] [address] Marilin Kaiser M.D. [address] [place] [address] 07/09/2024 9:45 AM IMPROVEMENT ANALYST Appointment Department of Radiology in [address] [address] Marilin Kaiser M.D. [address] [place] [address] 08/19/2024 12:45 PM IMPROVEMENT ANALYST Appointment Department of Radiology in [address] [address] Marilin Kaiser M.D. [address] [place] [address] 08/19/2024 1:00 PM IMPROVEMENT ANALYST Appointment Department of Radiology in [place], [place] [address] [place] [address] Marilin Kaiser M.D. [address] [place] [address] 08/20/2024 9:45 AM IMPROVEMENT ANALYST Appointment Department of Radiology in [place] [address] [place] [address] Marilin Kaiser M.D. [address] [place] [address] documented as of this encounter Procedures Procedure [...] (HCC) documented in this encounter Care Teams Armature [employer] Relationship Specialty Start Date End Date Elsewhere, Pcp PCP - General Family Medicine 08/31/20 documented as of this encounter
--- OUTSIDE RECORDS SUMMARY | 2024-02-18 11:04 | XMS_ITS | Encounter Summary ---
Author Organization [facility] Address [address] [place] [address] Care Team Providers Care As400 Administrator Name Role Phone Elsewhere, Pcp Primary Care Provider Unavailabl e Encounter Details Date Type Department Care Team (Late st Contact Info) Description 12/26/2023 Orders Only Department of Oncology in [place], [place] [address] [address] Renetta Tan R.N. [address] [phone] Secondary Malignant Neoplasm Bone (HCC) (Primary Dx); [...] often do you attend chur ch or restorationism services? Never 12/21/2021 Do you [...] and heating? Not hard at all 01/24/2023 [facility] - [...] your living situation today? I have a [facility] place to live 01/24/2023 Education Answer Date Recorded What is the highest level of school you have completed or the highest degree you have received? Master's degree (e.g., MA, MS, Gail, MEd, INFECTION CONTROL COORDINATOR, JAMIE) 12/21/2021 Sex and Gender Information Value Date Recorded Sex Assigned at Male 12/21/2021 7:22 AM CDT Gender Identity Male 12/21/2021 7:22 AM CDT Sexual Orientation Straight 12/21/2021 7: 22 AM CDT documented as of this encounter Plan of Treatment Upcoming Encounters Date Type Department Care Team (Late st Contact Info) Description 03/04/2024 1:15 PM CDT Appointment Department of Radiology in [place], [place] [address] [place] [address] Marilin Kaiser M.D. [address] [place] [phone] 03/04/2024 1:30 PM CDT Appointment Department of Radiology in [place], [place] [address] [place] [address] Marilin Kaiser M.D. 404 [place] [address] 03/05/2024 9:15 AM CDT Appointment Department of Radiology in [place], [place] [address] [place] [address] Marilin Kaiser M.D. 404 [place] [address] 04/15/2024 1:15 PM CDT Appointment Department of Radiology in [address] [address] Marilin Kaiser M.D. [address] [place] [address] 04/15/2024 1:30 PM CDT Appointment Department of Radiology in [address] [address] Marilin Kaiser M.D. [address] [place] [address] 04/16/2024 9:15 AM CDT Appointment Department of Radiology in [address] [address] Marilin Kaiser M.D. [address] [place] [address] 05/27/2024 12:45 PM CDT Appointment Department of Radiology in [address] [address] Marilin Kaiser M.D. [address] [place] [address] 05/27/2024 1:00 PM CDT Appointment Department of Radiology in [address] [address] Marilin Kaiser M.D. [address] [place] [address] 05/28/2024 9:15 AM CDT Appointment Department of Radiology in [address] [address] Marilin Kaiser M.D. [address] [place] [address] 07/08/2024 1:15 PM PERSONNEL RECRUITER Appointment Department of Radiology in [address] [address] Marilin Kaiser M.D. [address] [place] [address] 07/08/2024 1:30 PM PERSONNEL RECRUITER Appointment Department of Radiology in [address] [address] Marilin Kaiser M.D. [address] [place] [address] 07/09/2024 9:45 AM PERSONNEL RECRUITER Appointment Department of Radiology in [address] [address] Marilin Kaiser M.D. [address] [place] [address] 08/19/2024 12:45 PM PERSONNEL RECRUITER Appointment Department of Radiology in [address] [address] Marilin Kaiser M.D. [address] [place] [address] 08/19/2024 1:00 PM PERSONNEL RECRUITER Appointment Department of Radiology in [place], [place] [address] [place] [address] Marilin Kaiser M.D. [address] [place] [address] 08/20/2024 9:45 AM PERSONNEL RECRUITER Appointment Department of Radiology in [place] [address] [place] [address] Marilin Kaiser M.D. [address] [place] [address] documented as of this encounter Visit Diagnoses Diagnosis Secondary Malignant Neoplasm Bone (HCC)- Primary Primary Malignant Neoplasm Of Prostate (HCC) documented in this encounter Care Teams As400 Administrator Relationship Specialty Start Date End Date Elsewhere, Pcp PCP - General Family Medicine 08/31/20 documented as of this encounter
--- OUTSIDE RECORDS SUMMARY | 2024-02-18 11:04 | XMS_ITS | Encounter Summary ---
Author Organization [facility] Address [address] [place] [address] Care Team Providers Care Genetic Counselor Name Role Phone Elsewhere, Pcp Primary Care Provider Unavailabl e Reason for Referral * MRI/CAT/PET Scan (Routine) - Closed Specialty Diagnoses / Procedures Referred By Javon lopez Referred To Contact Diagnoses Primary Malignant Neoplasm Of Prostate (HCC) Procedures PET CT Skull to Thigh PSMA Marilin Kaiser M.D. [address] [place] [address] [facility] Referral ID Status Reason Start Date Expiration Date Visits Re quested Visits Authorized [id number] Closed 12/18/2023 12/17/2024 1 1 Reason for Visit * MRI/CAT/PET Scan (Routine) - Closed Specialty Diagnoses / Procedures Referred By Javon lopez Referred To Contact Diagnoses Primary Malignant Neoplasm Of Prostate (HCC) Procedures PET CT Skull to Thigh PSMA Marilin Kaiser M.D. [address] [place] [address] [facility] Region Referral ID Status Reason Start Date Expiration Date Visits Re quested Visits Authorized [id number] Closed 12/18/2023 12/17/2024 1 1 Encounter Details Date Type Department Care Team (Latest Contact Info) Description 12/24/2023 10:33 AM CDT - 12/24/2023 11:59 PM CDT Hospital Encounter Department of Radiology in [place], [place] [address] [place] [address] Marilin Kaiser M.D. [address] [place] [address] Primary Malignant Neoplasm Of Prostate [...] often do you attend chur ch or sabianism services? Never 12/21/2021 Do you belong to [...] and heating? Not hard at all 01/24/2023 [facility] of Occupat ional Health - Occupational Stress [...] your living situation today? I have a [facility] place to live 01/24/2023 Education Answer Date Recorded What is the highest level of school you have completed or the highest degree you have received? Master's degree (e.g., LETTY, MS, Gail, MEd, LINE SUPERVISOR, JAMIE) 12/21/2021 Sex and Gender Information [...] PM CDT Appointment Department of Radiology in [place], [place] [address] [place] [address] Marilin Kaiser M.D. [address] [place] [address] 03/04/2024 1:30 PM CDT Appointment Department of Radiology in [place], [place] [address] [place] [address] Marilin Kaiser M.D. [address] [place] [address] 03/05/2024 9:15 AM CDT Appointment Department of Radiology in [address] [address] Marilin Kaiser M.D. [address] [place] [address] 04/15/2024 1:15 PM CDT Appointment Department of Radiology in [address] [address] Marilin Kaiser M.D. [address] [place] [address] 04/15/2024 1:30 PM CDT Appointment Department of Radiology in [address] [address] Marilin Kaiser M.D. [address] [place] [address] 04/16/2024 9:15 AM CDT Appointment Department of Radiology in [address] [address] Marilin Kaiser M.D. [address] [place] [address] 05/27/2024 12:45 PM CDT Appointment Department of Radiology in [address] [address] Marilin Kaiser M.D. [address] [place] [address] 05/27/2024 1:00 PM CDT Appointment Department of Radiology in [address] [address] Marilin Kaiser M.D. [address] [place] [address] 05/28/2024 9:15 AM CDT Appointment Department of Radiology in [place], [place] [address] [place] [address] Marilin Kaiser M.D. [address] [place] [address] 07/08/2024 1:15 PM STAMPING MACHINE OPERATOR Appointment Department of Radiology in [address] [address] Marilin Kaiser M.D. [address] [place] [address] 07/08/2024 1:30 PM STAMPING MACHINE OPERATOR Appointment Department of Radiology in [place] [address] [place] [address] Marilin Kaiser M.D. [address] [place] [address] 07/09/2024 9:45 AM STAMPING MACHINE OPERATOR Appointment Department of Radiology in [address] [address] Marilin Kaiser M.D. [address] [place] [address] 08/19/2024 12:45 PM STAMPING MACHINE OPERATOR Appointment Department of Radiology in [address] [address] Marilin Kaiser M.D. [address] [place] [address] 08/19/2024 1:00 PM STAMPING MACHINE OPERATOR Appointment Department of Radiology in [address] [place] [address] Marilin Kaiser M.D. [address] [place] [address] 08/20/2024 9:45 AM STAMPING MACHINE OPERATOR Appointment Department of Radiology in [place], [place] [address] [place] [address] Marilin Kaiser M.D. [address] [place] [address] documented as of this encounter Procedures Procedure [...] Antecubital documented in this encounter Care Teams Genetic Counselor Relationship Specialty Start Date End Date Elsewhere, Pcp PCP - General Family Medicine 08/31/20 documented as of this encounter
--- OUTSIDE RECORDS SUMMARY | 2024-02-18 11:04 | XMS_ITS | Encounter Summary ---
Author Organization [facility] Address [address] [place] [id number] Care Team Providers Care Engraver Tire Mold Name Role Phone Elsewhere, Pcp Primary Care Provider Unavailabl e Encounter Details Date Type Department Care Team (Late st Contact Info) Description 12/27/2023 Documentation Department of Radiology in [place], [place] [address] [place] [address] Evelina Ontiveros, AMBER, C.N.P., D.N.P. [address] [place] [address] Social History Tobacco Use Types Packs/Day Years [...] often do you attend chur ch or orthodox services? Never 12/21/2021 Do you belong to any clubs o r organizations such as scientology groups, unions, fraternal or athletic groups, or [...] and heating? Not hard at all 01/24/2023 [facility] of Occupat ional Health - Occupational [...] your living situation today? I have a [facility] to live 01/24/2023 Education Answer Date Recorded What is the highest level of school you have completed or the highest degree you have received? Master's degree (e.g., MA, MS, Gail, MEd, GERENTOLOGICAL PHYSIOTHERAPIST, JAMIE) 12/21/2021 Sex and Gender Information Value [...] Prostate biopsy was performed. Pathology demonstrated adenocarcinoma, [place] 3+4=7. Adenocarcinomawas an every biopsy specimen, generally with greater than 50% total surface area involved. Perineural invasion was also present. T1c. 01/29/2011 - 03/28/2011 Radiation Therapy Intensity modulated radiation therapy to the prostate to a dose of 7560 cGy in 42 fractions under the care of Dr. Rachael Sanford at [facility] in [place], [place]. 01/2011 - Biological/Targeted/Hormone Therapy Lupron 30 [...] and Procedures Cryotherapy with Dr. Yu at [facility]. The patient underwent placement of 13 cryo [...] 11/30/2021 Critical Imaging PSMA PET scan at [facility] demonstrated radiotracer positive lesion in the [...] Common Hereditary Cancers Panel (47 genes) via [employer]. See test report fordetails regarding genes analyzed and testing methodologies. RESULT: NEGATIVE FOR CLINICALLY ACTIONABLE VARIANTS No clinically actionable (pathogenic or likely pathogenic) variants were detected in the genes analyzed. One variant of uncertain significance was detected: POLE c.2134C>G ([id number]). No laboratory classifies this variant as clinically-actionable [...] Master's degree (e.g., MA, MS, Gail, MEd, GERENTOLOGICAL PHYSIOTHERAPIST, JAMIE) Occupational History Not on file Tobacco [...] PM CDT Appointment Department of Radiology in [address] [address] Marilin Kaiser M.D. [address] [place] [address] 03/04/2024 1:30 PM CDT Appointment Department of Radiology in [address] [address] Marilin Kaiser M.D. [address] [place] [address] 03/05/2024 9:15 AM CDT Appointment Department of Radiology in [address] [address] Marilin Kaiser M.D. [address] [place] [address] 04/15/2024 1:15 PM CDT Appointment Department of Radiology in [address] [address] Marilin Kaiser M.D. [address] [place] [address] 04/15/2024 1:30 PM CDT Appointment Department of Radiology in [address] [address] Marilin Kaiser M.D. [address] [place] [address] 04/16/2024 9:15 AM CDT Appointment Department of Radiology in [address] [address] Marilin Kaiser M.D. [address] [place] [address] 05/27/2024 12:45 PM CDT Appointment Department of Radiology in [address] [address] Marilin Kaiser M.D. [address] [place] [address] 05/27/2024 1:00 PM CDT Appointment Department of Radiology in [address] [address] Marilin Kaiser M.D. [address] [place] [address] 05/28/2024 9:15 AM CDT Appointment Department of Radiology in [address] [address] Marilin Kaiser M.D. [address] [place] [address] 07/08/2024 1:15 PM GAMEWELL OPERATOR Appointment Department of Radiology in [address] [address] Marilin Kaiser M.D. [address] [place] [address] 07/08/2024 1:30 PM GAMEWELL OPERATOR Appointment Department of Radiology in [address] [address] Marilin Kaiser M.D. [address] [place] [address] 07/09/2024 9:45 AM GAMEWELL OPERATOR Appointment Department of Radiology in [address] [address] Marilin Kaiser M.D. [address] [place] [address] 08/19/2024 12:45 PM GAMEWELL OPERATOR Appointment Department of Radiology in [address] [address] Marilin Kaiser M.D. [address] [place] [address] 08/19/2024 1:00 PM GAMEWELL OPERATOR Appointment Department of Radiology in [address] [address] Marilin Kaiser M.D. [address] [place] [address] 08/20/2024 9:45 AM GAMEWELL OPERATOR Appointment Department of Radiology in [place], [place] [address] [place] [address] Marilin Kaiser M.D. 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
--- OUTSIDE RECORDS SUMMARY | 2024-02-18 11:04 | XMS_ITS | Encounter Summary ---
Author Organization [facility] Address [address] [place] [address] Care Team Providers Care Manager Furniture Name Role Phone Elsewhere, Pcp Primary Care Provider Unavailabl e Encounter Details Date Type Department Care Team (Late st Contact Info) Description 01/02/2024 Clinical Communication Department of Radiology in [place], [place] [address] [place] [address] Peterson Rodas Social History Tobacco Use Types [...] often do you attend chur ch or mormonism services? Never 12/21/2021 Do you belong to any clubs o r organizations such as shinto groups, unions, fraternal or athletic groups, or [...] and heating? Not hard at all 01/24/2023 [facility] of Occupat ional Health - [...] Master's degree (e.g., MA, MS, Gail, MEd, IMPLEMENTATION SPECIALIST, JAMIE) 12/21/2021 Sex and Gender Information [...] PM CDT Appointment Department of Radiology in [place], [place] [address] [place] [address] Marilin Kaiser M.D. [address] [place] [address] 03/04/2024 1:30 PM CDT Appointment Department of Radiology in [address] [address] Marilin Kaiser M.D. [address] [place] [address] 03/05/2024 9:15 AM CDT Appointment Department of Radiology in [address] [address] Marilin Kaiser M.D. [address] [place] [address] 04/15/2024 1:15 PM CDT Appointment Department of Radiology in [address] [address] Marilin Kaiser M.D. [address] [place] [address] 04/15/2024 1:30 PM CDT Appointment Department of Radiology in [address] [address] Marilin Kaiser M.D. [address] [place] [address] 04/16/2024 9:15 AM CDT Appointment Department of Radiology in [address] [address] Marilin Kaiser M.D. [address] [place] [address] 05/27/2024 12:45 PM CDT Appointment Department of Radiology in [address] [address] Marilin Kaiser M.D. [address] [place] [address] 05/27/2024 1:00 PM CDT Appointment Department of Radiology in [address] [address] Marilin Kaiser M.D. [address] [place] [address] 05/28/2024 9:15 AM CDT Appointment Department of Radiology in [address] [address] Marilin Kaiser M.D. [address] [place] [address] 07/08/2024 1:15 PM MEDIEVAL ENGLISH LITERATURE PROFESSOR Appointment Department of Radiology in [address] [address] Marilin Kaiser M.D. [address] [place] [address] 07/08/2024 1:30 PM MEDIEVAL ENGLISH LITERATURE PROFESSOR Appointment Department of Radiology in [address] [address] Marilin Kaiser M.D. [address] [place] [address] 07/09/2024 9:45 AM MEDIEVAL ENGLISH LITERATURE PROFESSOR Appointment Department of Radiology in [address] [address] Marilin Kaiser M.D. [address] [place] [address] 08/19/2024 12:45 PM MEDIEVAL ENGLISH LITERATURE PROFESSOR Appointment Department of Radiology in [place], [place] [address] [place] [address] Marilin Kaiser M.D. [address] [place] [address] 08/19/2024 1:00 PM MEDIEVAL ENGLISH LITERATURE PROFESSOR Appointment Department of Radiology in [place], [place] [address] [place] [address] Marilin Kaiser M.D. [address] [place] [address] 08/20/2024 9:45 AM MEDIEVAL ENGLISH LITERATURE PROFESSOR Appointment Department of Radiology in [address] [address] Marilin Kaiser M.D. [address] [place] [address] documented as of this encounter Visit Diagnoses Not on filedocumented in this encounter Care Teams Manager Furniture Relationship Specialty Start Date End Date Elsewhere, Pcp PCP - General Family Medicine 08/31/20 documented as of this encounter
--- OUTSIDE RECORDS SUMMARY | 2024-02-18 11:05 | XMS_ITS | Clinical Summary ---
Author Organization [employer] Address [place], [place] [address] Care Team Providers Care Laborer Steel Handling Name Role Phone Rivas Torres MD Primary Care Provider [phone]- [phone] Allergies Active Allergy Reactions Criticality Noted Date [...] Encounters Date Type Department Care Team Description 02/17/2024 10:32 PM CDT - 02/18/2024 12:24 AM CDT Emergency [facility] Emergency Department [address] [place] [address] John Nj MD Acute urinary retention (Primary Dx) Discharge Disposition: Home Self Care 02/17/2024 Travel 12/26/2023 Orders Only [facility] Scanner 1 scan: (1-Ord) ARIELLE, MR LUMBAR SPINE WO/W CON, 12/26/2023 12/11/2023 10:00 AM CDT Orders Only [facility] [address] [place] [address] [place] Outside Order (Severino Rodrigues) 12/11/2023 Travel 12/10/2023 Nurse Triage [facility] [address] [place] [address] Rivas Torres MD Error-please disregard (opened in error) 12/10/2023 Orders Only [facility] [address] [place] [address] Rivas Torres MD Outside Order (Ordered by Severino Rodrigues ) from Last 3 Months Immunizations Name Administration Dates Next Due COVID-19 vaccine ([employer] 30mcg/0.3mL) 12YO+ MARIA C-SUCROSE PF, MDV 10/30/2021 COVID-19 vaccine ([employer] 30mcg/0.3mL) PF, MDV 05/24/2021,09/21/2020,08/31/2020 Influenza, High-dose [...] Sign Reading Time Taken Comments Blood Pressure 132/68 02/18/2024 12:21 AM CDT Pulse 110 02/18/2024 12:21 AM CDT Temperature 36.9 ??C (98.4 ??F) 02/17/2024 10:26 PM C DT Respiratory Rate 14 02/18/2024 12:21 AM CDT Oxygen Saturation 99% 02/18/2024 12:21 AM CDT Inhaled Oxygen Concentration - - Weight 90.3 kg (199 lb) 02/17/2024 10:26 PM CDT Height 185.4 cm (6' 1) 02/17/2024 10:26 PM CDT Body Mass Index 26.25 02/17/2024 10:26 PM CDT Plan of Treatment Upcoming Encounters Date Type Department Care Team (Latest Contact Info) Description 06/11/2024 7:15 AM PAINTING TECHNICIAN Hospital Encounter [facility] [address] [place] [address] Severino Rodrigues MD [address] [place] [address] 06/11/2024 7:15 AM PAINTING TECHNICIAN - 06/11/2024 8:31 AM PAINTING TECHNICIAN Surgery [facility] [address] [place] [address] Severino oRdrigues MD [address] [place] [id number] cystoscopy, left ureteral stent exchange Scheduled Procedures Name Priority Associated Diagnoses Date/Ti me CYSTOSCOPY EXCHANGE URETERAL STENT Elective N13.30 Unspecified hydronephrosis 06/11/2024 7:15 AM PAINTING TECHNICIAN Health Maintenance Due Date Last Done Comments [...] Additional history exists Tetanus booster 05/13/2027 05/13/2017, 08/2005, 09/17/1995 Tdap Completed 05/13/2017, 10/03/2005 Pneumococcal series for age 65+ Completed 8, 05/02/2015 Hepatitis C screening for ag e 18-79 Completed 05/19/2018 Zoster (shingles) series for age 50+ Completed 03/08/2021, 01/04/2021 Medical Devices Implanted Type Area Pile Driver Device Identifier Shelf Expiration Date Model / Serial / Lot Stent Uret [id number] Perc[employer]lex Hydroplus - [id number] Implanted:Qty: 1 on 02/01/2023 by Severino Rodrigues MD at [facility] Left: [facility] 03/07/2025 [id number] / / [id number] Stent Uret [id number] Percuflex Hydroplus - [id number] Implanted:Qty: 1 on 10/03/2023 by Severino Rodrigues MD at [facility] Left: [facility] [facility] 03/29/2026 [id number] / / [id number] Procedures Procedure Name Priority Date/Time Associated Diagnosis Comments RED CELL MORPHOLOGY STAT 02/18/2024 1 2:03 AM CDT PLATELET ESTIMATE STAT 02/18/2024 12: 03 AM CDT MANUAL DIFFERENTIAL STAT 02/18/2024 1 2:03 AM CDT CBC WITH AUTO DIFFERENTIAL STAT 02/18/2024 12:03 AM CDT BASIC METABOLIC PANEL STAT 02/18/2024 12:03 AM CDT CBC WITH AUTO DIFFERENTIAL STAT 02/18/2024 12:03 AM CDT URINALYSIS MICROSCOPIC STAT 10:58 PM CDT UA W/ SEDIMENT EXAM REFLEXED PER CRITERIA STAT 02/17/2024 10:58 PM CDT SCAN-MRI INTERPRETATION 12/26/19 24 12:00 AM CDT URINE CULTURE Routine 12/11/2023 8:03 AM CDT Hematuria syndrome ANTI HCV Routine 05/19/2018 7:38 AM CDT Need for hepatitis C screening test from Last 3 Months or Most Recently Relevant to Health Maintenance Results * (ABNORMAL) CBC WITH AUTO DIFFERENTIAL (02/18/2024 12:03 AM CDT) WHITE BLOOD COUNT 4.8 4.5 - 11.0 thou/cu mm 02/18/2024 1:27 AM CDT [facility] RED BLOOD COUNT 2.98(L) 4.30 - 5.90 mil/cu mm 02/18/2024 1:27 AM [facility] HEMOGLOBIN 7.5(L) 13.5 - 17.5 g/dL 02/18/2024 1:27 AM [facility] HEMATOCRIT 24.2(L) 37.0 - 53.0 % 02/18/2024 1:27 AM [facility] MCV 81 80 - 100 fL 02/18/2024 1:27 AM [facility] MCH 25.2(L) 26.0 - 34.0 pg 02/18/2024 1:27 AM [facility] MCHC 31.0(L) 32.0 - 36.0 g/dL 02/18/2024 1:27 AM [facility] RDW 18.2(H) 11.5 - 15.5 % 02/18/2024 1:27 AM [facility] PLATELET COUNT 109(L) 140 - 440 thou/cu mm 02/18/2024 1:27 AM [facility] MPV 9.8 6.5 - 11.0 fL 02/18/2024 1:27 AM [facility] NRBC 0.6 % 02/18/2024 1:27 AM [facility] ABS NRBC 0.0 thou /cu mm 02/18/2024 1:27 AM [facility] Blood BLOOD SPECIMEN / Unknown Venipuncture / Unknown 02/18/2024 12:03 AM CDT 02/18/2024 12:11 AM CDT John Nj MD HEMATOLOGY Performing Organization Address City/[facility]/ZIP Co de Phone Number [facility] [address] [place] [address], * (ABNORMAL) RED CELL MORPHOLOGY (02/18/2024 12:03 AM CDT) ELLIPTOCYTES Few 02/18/2024 1:27 AM CDT [facility] POLYCHROMASIA Slight 02/18/2024 1:27 AM CDT [facility] RBC COMMENT Present(A) RBC morphology appears normal, RBC morphology within normal limits for newborns. 02/18/2024 1:27 AM CDT [facility] Blood BLOOD SPECIMEN / Unknown Venipuncture / Unknown 02/18/2024 12:03 AM CDT 02/18/2024 12:11 AM CDT John Nj MD HEMATOLOGY Performing Organization Address [facility] Co de Phone Number [facility] [address] [place] [address], [place] * (ABNORMAL) PLATELET ESTIMATE (02/18/2024 12:03 AM CDT) Pathologist [facility] PLATELET ESTIMATE Decreased (A) Adequate, No estimate 02/18/2024 1:27 AM CDT [facility] Blood BLOOD SPECIMEN / Unknown Venipuncture / Unknown 02/18/2024 12:03 AM CDT 02/18/2024 12:11 AM CDT John Nj MD HEMATOLOGY Performing Organization Address City/[facility]/ZIP Co de Phone Number [facility] [address] [place] [address], [place] * (ABNORMAL) MANUAL DIFFERENTIAL (02/18/2024 12:03 AM CDT) Pathologist [facility] % NEUTROPHILS 81.2 % 02/18/2024 1:27 AM CDT [facility] % LYMPHOCYTES 9.4 % 02/18/2024 1:27 AM CDT [facility] % MONOCYTES 6.0 % 02/18/2024 1:27 AM CDT [facility] % EOSINOPHILS 0.8 % 02/18/2024 1:27 AM CDT [facility] % BASOPHILS 0.9 % 02/18/2024 1:27 AM CDT [facility] % METAMYELOCYTES 1.7(H) <0.1 % 02/18/20 1:27 AM CDT [facility] NEUTROPHILS ABSOLUTE 3.9 1.7 - 7.0 thou/cu mm 02/18/2024 1:27 AM CDT [facility] LYMPHOCYTES ABSOLUTE 0.5(L) 0.9 - 2.9 thou/cu mm 02/18/2024 1:27 AM CDT [facility] MONOCYTES ABSOLUTE 0.3 <0.9 thou/cu mm 02/18/2024 1:27 AM CDT [facility] EOSINOPHILS ABSOLUTE 0.0 <0.5 thou/cu mm 02/18/2024 1:27 AM CDT [facility] BASOPHILS ABSOLUTE 0.0 <0.3 thou/cu mm 02/18/2024 1:27 AM CDT [facility] ABSOLUTE METAMYELOCYTES 0.1(H) <=0.0 thou/cu mm 02/18/2024 1:27 AM T [facility] Blood BLOOD SPECIMEN / Unknown Venipuncture / Unknown 02/18/2024 12:03 AM CDT 02/18/2024 12:11 AM CDT John Nj MD HEMATOLOGY [facility] [address] [place] [address], * (ABNORMAL) BASIC METABOLIC PANEL (02/18/2024 12:03 AM CDT) SODIUM 135(L) 136 - 145 mmol/L 02/18/2024 12:51 AM T [facility] POTASSIUM 4.9 3.5 - 5.1 mmol/L 02/18/2024 12:51 AM T [facility] CHLORIDE 103 98 - 107 mmol/L 02/18/2024 12:51 AM T [facility] CO2,TOTAL 20(L) 22 - 29 mmol/L 02/18/2024 12:51 AM T [facility] ANION GAP 12 5 - 18 02/18/2024 12:51 AM T [facility] GLUCOSE 163(H) 70 - 99 mg/dL 02/18/2024 12:51 AM T [facility] CALCIUM 5.9(LL) 8.8 - 10.2 mg/dL 02/18/2024 12:51 AM [facility] BUN 19 8 - 23 mg/dL 02/18/2024 12:51 AM [facility] CREATININE 0.64(L) 0.70 - 1.20 mg/dL 02/18/2024 12:51 AM [facility] BUN/CREAT RATIO 30(H) 10 - 20 12:51 AM T [facility] eGFR >90 >90 mL/min/1.7 3m2 02/18/2024 12:51 AM [facility] Comment:As of 2021, eG FR is calculated by the CKD-EPI creatinine equation without race adjustment. ??eGFR can be influenced by muscle mass, exercise, and diet. ??The reported eGFR is an estimation only and is only applicable if the renal function is stable. Blood BLOOD SPECIMEN / Unknown Venipuncture / Unknown 02/18/2024 12:03 AM CDT 02/18/2024 12:11 AM CDT John Nj MD CHEMISTRY [facility] [address] [place] [address], [place] * (ABNORMAL) URINALYSIS MICROSCOPIC (02/17/2024 10:58 PM CDT) RBC >100(A) 0-2, None Seen /HPF 02/17/2024 11:35 PM CDT [facility] WBC 6-10(A) 0-2, 3-5, None Seen /HPF 02/17/2024 11:35 PM CDT [facility] BACTERIA None Seen None Seen, Rare, Few Bacteria/ HPF 02/17/2024 11:35 PM CDT [facility] EPITHELIAL CELLS None Seen None Seen, Few Epi/HPF 02/17/2024 11:35 PM CDT [facility] HYALINE CASTS 3-5 0-2, 3-5 /LPF 02/17/2024 11:35 PM CDT [facility] Urine URINE SPECIMEN / Unknown Non-Blood / Unknown 02/17/2024 10:58 PM CDT 02/17/2024 11:10 PM CDT John Nj MD URINE [facility] [address] [place] [address], [place] * (ABNORMAL) UA W/ SEDIMENT EXAM REFLEXED PER CRITERIA (02/17/2024 10:58 PM CDT) COLOR [place](A) Yellow Color 02/17/2024 11:35 PM CDT [facility] CLARITY Clear Clear Clarity 02/17/2024 11:35 PM CDT [facility] SPECIFIC GRAVITY,URINE 1.010 1.010, 1.015, 1.020, 1.025 02/17/2024 11:35 PM CDT [facility] PH,URINE 8.0 6.0, 7.0, 8.0, 5.5, 6.5, 7.5, 8.5 02/17/2024 11:35 PM CDT [facility] UROBILINOGEN, QUALITATIVE Normal Normal EU/dl 02/17/2024 11:35 PM CDT [facility] PROTEIN, URINE 100(A) Negative mg/dL 02/17/2024 11:35 PM CDT [facility] GLUCOSE, URINE Negative Negative mg/dL 02/17/2024 11:35 PM CDT [facility] KETONES,URINE Negative Negative mg/dL 02/17/2024 11:35 PM CDT [facility] BILIRUBIN,URI NE Negative Negative 02/17/2024 11:35 PM CDT [facility] OCCULT BLOOD,URINE Large(A) Negative 02/17/2024 11:35 PM CDT [facility] NITRITE Negative Negative 02/17/2024 11:35 PM CDT [facility] LEUKOCYTE ESTERASE Trace(A) Negative 02/17/2024 11:35 PM CDT [facility] Urine URINE SPECIMEN / Unknown Non-Blood / Unknown 02/17/2024 10:58 PM CDT 02/17/2024 11:10 PM CDT John Nj MD URINE [facility] [address] [place] [address], * SCAN-MRI INTERPRETATION (12/26/2023 12:00 AM CDT) Anatomical Region Laterality Modality Other Scanner OTHER * URINE CULTURE (12/11/2023 8:03 AM CDT) CULTURE No growth (<1,000 CFU/mL) 12/12/2023 11:32 AM CDT [facility] Urine URINE SPECIMEN / Unknown Non-Blood / Unknown 12/11/2023 8:03 AM CDT 12/11/2023 8:03 AM CDT Rivas Torres MD [facility]Y [facility] [address] [place] [address], * ANTI HCV [85354.2] (05/19/2018 7:38 AM CDT) HEPATITIS C ANTIBODY Non-React rafia Non-React rafia 05/19/2018 3:00 PM CDT [facility] Comment:Antibodies to HCV no t detected; does not exclude the possibility of exposure to HCV. Blood BLOOD SPECIMEN / Unknown Venipuncture / Unknown 05/19/2018 7:38 AM CDT 05/19/2018 7:39 AM CDT Rivas Torres MD [facility] [address] [place] [address], from Last 3 Months or Most Recently [...] Code Status Discussion: Not Discussed Care Teams Laborer Steel Handling Relationship Specialty Start Date End Date Rivas Torres MD [address] [place] [address] PCP - General 01/09/06
--- OUTSIDE RECORDS SUMMARY | 2024-02-18 11:05 | XMS_ITS | Encounter Summary ---
Author Organization [facility] Address [address] [place] [address] Care Team Providers Care New Vehicle Sales Consultant Name Role Phone Elsewhere, Pcp Primary Care Provider Unavailabl e Reason for Referral * MRI/CAT/PET Scan (Routine) - Closed Specialty Diagnoses / Procedures Referred By Contac t Referred To Contact Diagnoses Primary Malignant Neoplasm Of Prostate (HCC) Procedures PET CT Skull to Thigh PSMA Marilin Kaiser M.D. [address] [place] [address] [facility] Region Referral ID Status Reason Start Date Expiration Date Visits Re quested Visits Authorized [id number] Closed 12/18/2023 12/17/2024 1 1 Encounter Details Date Type Department Care Team (Late st Contact Info) Description 12/18/2023 Orders Only Department of Oncology in [place], [place] [address] [place] [phone] Marilin Kaiser M.D. [address] [place] [phone] Primary Malignant Neoplasm Of Prostate (HCC) (Primary [...] and heating? Not hard at all 01/24/2023 [facility] - [...] your living situation today? I have a [facility] place [facility] live 01/24/2023 Education Answer Date Recorded What is the highest level of school you have completed or the highest degree you have received? Master's degree (e.g., MA, MS, Gail, MEd, [employer] PARALE[employer], JAMIE) 12/21/2021 Sex and Gender Information Value Date Recorded Sex Assigned at Male 12/21/2021 7:22 AM CDT Gender Identity Male 12/21/2021 7:22 AM CDT Sexual Orientation Straight 12/21/2021 7: 22 AM CDT documented as of this encounter Plan of Treatment Upcoming Encounters Date Type Department Care Team (Late Contact Info) Description 03/04/2024 1:15 PM CDT Appointment Department of Radiology in [address] [address] Marilin Kaiser M.D. [address] [place] [address] 03/04/2024 1:30 PM CDT Appointment Department of Radiology in [address] [address] Marilin Kaiser M.D. [address] [place] [address] 03/05/2024 9:15 AM CDT Appointment Department of Radiology in [address] [address] Marilin Kaiser M.D. [address] [place] [address] 04/15/2024 1:15 PM CDT Appointment Department of Radiology in [address] [address] Marilin Kaiser M.D. [address] [place] [phone] 04/15/2024 1:30 PM CDT Appointment Department of Radiology in [address] [address] Marilin Kaiser M.D. [address] [place] [address] 04/16/2024 9:15 AM CDT Appointment Department of Radiology in [address] [address] Marilin Kaiser M.D. [address] [place] [address] 05/27/2024 12:45 PM CDT Appointment Department of Radiology in [address] [address] Marilin Kaiser M.D. [address] [place] [address] 05/27/2024 1:00 PM CDT Appointment Department of Radiology in [address] [address] Marilin Kaiser M.D. [address] [place] [address] 05/28/2024 9:15 AM CDT Appointment Department of Radiology in [address] [address] Marilin Kaiser M.D. [address] [place] [address] 07/08/2024 1:15 PM KNOT PICKER [employer]OTH Appointment Department of Radiology in [address] [address] Marilin Kaiser M.D. [address] [place] [address] 07/08/2024 1:30 PM KNOT PICKER [employer]OTH Appointment Department of Radiology in [address] [address] Marilin Kaiser M.D. [address] [place] [address] 07/09/2024 9:45 AM KNOT PICKER CLOTH Appointment Department of Radiology in [place], [place] [address] [place] [address] Marilin Kaiser M.D. [address] [place] [address] 08/19/2024 12:45 PM KNOT PICKER CLOTH Appointment Department of Radiology in [address] [address] Marilin Kaiser M.D. [address] [place] [address] 08/19/2024 1:00 PM KNOT PICKER CLOTH Appointment Department of Radiology in [address] [address] Marilin Kaiser M.D. [address] [place] [address] 08/20/2024 9:45 AM KNOT PICKER CLOTH Appointment Department of Radiology in [address] [address] Marilin Kaiser M.D. [address] [place] [address] documented as of this encounter Results * [...] (HCC) documented in this encounter Care Teams New Vehicle Sales Consultant Relationship Specialty Start Date End Date Elsewhere, Pcp PCP - General Family Medicine 08/31/20 documented as of this encounter
--- OUTSIDE RECORDS SUMMARY | 2024-02-18 11:05 | XMS_ITS | Referral Summary ---
Author Organization [facility] Address [address] [place] [address] Care Team Providers Care Wicker Worker Name Role Phone Rivas Torres MD Primary Care Provider [phone]- [phone] Allergies Active Allergy Reactions Criticality Noted Date [...] 3 days 10/22/2022 Active Cholecalciferol 250 MCG (28550 UT) CAPS 01/17/2022 Active lisinopril (ZESTRIL) 20 [...] of Treatment Not on file Care Teams Wicker Worker Relationship Specialty Start Date End Date Rivas Torres MD PCP - General Family Practice 04/27/19
--- OUTSIDE RECORDS SUMMARY | 2024-02-18 11:05 | XMS_ITS | Clinical Summary ---
Author Organization [facility] Address [address] [place] [address] Care Team Providers Care Buddhist Monk Name Role Phone Rivas Torres MD Primary Care Provider +1- [phone] Allergies Active Allergy Reactions Criticality Noted Date [...] 3 days 10/22/2022 Active Cholecalciferol 250 MCG (05400 UT) CAPS 01/17/2022 Active lisinopril (ZESTRIL) 20 [...] age to complete this topic Care Teams Buddhist Monk Relationship Specialty Start Date End Date Rivas Torres MD PCP - General Family Practice 04/27/19
[2024-02-18] MEDS: CALCIUM GLUC 1,000MG/50 ML 1,000 MG/50 ML BAG 100 MG IVPB (11:16)
--- NOTE | 2024-02-18 11:28 | PM.IMHP1 ---
Hospitalist- H&P: HPI History of Present Illness Date Seen: 02/18/24 Chief complaint: coming from [facility] Narrative: Solis Tihbodeaux is a 78 year old male Solis Thibodeaux is a 78 year old male with advanced metastatic prostate cancer admitted from the [facility] for 2-3 weeks of progressive fatigue, weakness, loss of appetite. In the clinic he was found to have hypocalcemia. He is admitted for evaluation of these symptoms and hypocalcemia. He reports no symptoms acute illness, cold, cough, sore throat, shortness of breath, chest pain, abdominal pain, nausea, vomiting, diarrhea. He does have a tendency towards constipation from Percocet. He reports no urinary problems. No rash. He does have pain for metastatic disease in his taking about 1 Percocet 3 times a day for pain. He has longstanding history of evaluation and treatment of prostate cancer diagnosed in 2010. At that time he had [place] 7. Treated with radical radiation therapy. No surgery Treated with intermittent hormonal therapy. In 2018 had cryotherapy. Monitoring of PSA showed 4.85 around the time of diagnosis in 2010 and subsequently has been less than 1 until 2021. PET scan in November 2021 showed locally advanced prostate cancer involving inguinal lymph nodes and supra-acetabular osseous metastases. December of 2021 treated with Xtandi. January of 2023 PSMA PET scan showed metastatic prostate cancer and possibly obstructed left kidney. New metastatic lesions. Xtandi discontinued. February 2023 started Xgeva with Taxotere June 2023 PET-CT showed improvement with decrease in uptake of osseous lesions. September to December of 2023 treated with darolutamide. PSA continued to increase. Most recently 125 on Jan 03 2020 for January 22 2024 1st treatment of PYLARIFY F-18, radiopharmaceutical. Also being treated with Lupron. He has been told that current treatment is likely the last option for management of his widely metastatic prostate cancer. Has not had formal consultation with palliative care. 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 - Acquired stenosis of unspecified nasolacrimal duct (ICD-10) Rash in adult ?R21 - Rash and other nonspecific skin eruption (ICD-10) Hypokalemia ?E87.6 - Hypokalemia (ICD-10) Hypocalcemia ?E83.51 - Hypocalcemia (ICD-10) Osseous metastasis ?C79.51 - Secondary malignant neoplasm of bone (ICD-10) Androgen deprivation therapy ?Z79.818 - adjunct faculty for medical terminology (current) use of other agents affecting estrogen receptors and estrogen levels (ICD-10) S/P radiation therapy ?Z92.3 - Personal history of irradiation (ICD-10) Health care directive on file ?Z78.9 - Other specified health status (ICD-10) Adenocarcinoma of prostate ?C61 - Malignant neoplasm of prostate (ICD-10) Social History Narrative: He lives in [place]. He is . His closest contact, primary support and healthcare power of securities attorney is Paulette Russo, his ex- and current friend. Nonsmoker. Former moderate alcohol consumption but none for several months. What is your current living situation?: I presently have a place to live Problems where you live: no known problems Problems where you live details: n/a In the past 12 months, utilities in danger of being shut off: no In past 12 months, lack of transportation kept you from medical appts, meetings, work, or getting things needed for daily living: no In the past 12 mos, have been you worried that your food would run out before you had money to buy more?: never true In the past 12 mos, the food you bought just didn't last and you didn't have money to buy more?: never true Highest level of school completed/degree received: Master's degree Smoking Status: Never smoker Do you use any of these nicotine containing products: None How often do you have a drink containing alcohol: never AUDIT-C Alcohol total score: 0 Non-prescribed substance use: denies use Caffeine: Yes How often does anyone, including family, friends and others, physically hurt you: never How often does anyone, including family, friends and others, insult or talk down to you: never How often does anyone, including family, friends and others, threaten you with harm: never How often does anyone, including family, friends and others, scream or curse at you: never service: No Meds Home Medications and Allergies Home Medications ?Medication ?Instructions ?Recorded ?Confirmed ?Type rosuvastatin 5 mg tablet 5 mg PO DAILY 03/28/22 02/18/24 History tamsulosin 0.4 mg capsule 0.8 mg PO DAILY 03/28/22 02/18/24 History cyanocobalamin (vitamin B-12) 500 mcg PO Q3D 01/31/23 02/18/24 History 1,000 mcg capsule leuprolide acetate (6 month) 45 mg 45 mg IM [id number] 01/31/23 02/18/24 History intramuscular syringe kit (Lupron Depot) potassium chloride 20 mEq 40 meq PO BID 10/21/23 02/18/24 History tablet,extended release ibuprofen 200 mg tablet (Advil) 400 mg PO Q8H PRN 12/18/23 02/18/24 History lisinopril 20 mg tablet 10 mg PO QDAY 02/18/24 02/18/24 History Allergies Allergy/AdvReac Type Severity Reaction Status Date / Time allopurinol Allergy Intermediate Verified 02/18/24 10:24 Exam Const: Vital Signs, click to edit/add: Vital Signs - 24 hr 02/18/24 10:21 02/18/24 10:31 02/18/24 10:43 Temperature 97.5 F L Pulse Rate [Pulse Oximeter] Respiratory Rate 16 20 18 Blood Pressure [Ri ght Upper Arm] 102/65 Pulse Oximetry 99 Oxygen Delivery Me thod Room Air 02/18/24 10:44 02/18/24 11:10 Temperature Pulse Rate [Pulse Oximeter] 90 Respiratory Rate Blood Pressure [Ri ght Upper Arm] Pulse Oximetry 96 Oxygen Delivery Me thod Assessment and Plan Assessment and plan (1) Prostate cancer metastatic to bone: Status: Acute (2) Hypocalcemia: Problem comment: - 5.8 on 02/17, corrects to 6.8-7 given hypoalbuminemia - elevated PTH, normal Vitamin D, normal phosphorous Status: Acute
--- NOTE | 2024-02-18 11:30 | ED.NURSE ---
Pt transfer to M/S, report given to nikhil Constantino
[2024-02-18] MEDS: lidocaine HCL 2 % JELLY (TOP) STERILE 6 ML UR (12:38)
[2024-02-18] MEDS: MORPHINE 10 MG/ML inj IVP (13:00)
--- NOTE | 2024-02-18 13:49 | PM.SD ---
Same Day Admit/Disch: HPI History of Present Illness Date Seen: 02/18/24 Chief complaint: coming from [facility] Narrative: Solis Thibodeaux is a 78 year old male who presented to the emergency room at the behest of his oncologist for a hemoglobin of 7.3 and a calcium of 5.8. He has a history of metastatic prostate cancer and sees Dr. Kaiser of Oncology for follow-up. Prostate cancer diagnosed in 2010, [place] 7, treated with radical radiation therapy. 2019: cryotherapy. Recent Oncologic history: November of 2021 PET scan exhibited locally advanced prostate cancer involving inguinal lymph nodes and supra-acetabular osseous metastases December of 2021 treated with Xtandi. January of 2023 PSMA PET scan showed metastatic prostate cancer and possibly obstructed left kidney. New metastatic lesions. Xtandi discontinued. February 2023 started Xgeva with Taxotere June 2023 PET-CT showed improvement with decrease in uptake of osseous lesions. September to December of 2023 treated with darolutamide. PSA continued to increase. Most recently 125 on Jan 03 2020 for January 22 2024 1st treatment of PYLARIFY F-18, radiopharmaceutical. Also being treated with Lupron. Has had severe hypocalcemia since January, workup has revealed an elevated PTH, normal phosphorous, normal Vitamin D. In the emergency room, 1 unit of blood was started for his hemoglobin of 7.3 and he received 1 g of calcium gluconate. He has also noted hematuria over the past few days; presented to our emergency room for this last night and was ultimately sent to [facility] where he had a Mccann catheter placed by Dr. Rodrigues of Urology. Upon arrival to the floor, he endorsed fairly severe suprapubic pain and noted that he had not had drainage from his catheter for a few hours. 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 - Acquired stenosis of unspecified nasolacrimal duct (ICD-10) Rash in adult ?R21 - Rash and other nonspecific skin eruption (ICD-10) Hypokalemia ?E87.6 - Hypokalemia (ICD-10) Hypocalcemia ?E83.51 - Hypocalcemia (ICD-10) Osseous metastasis ?C79.51 - Secondary malignant neoplasm of bone (ICD-10) Androgen deprivation therapy ?Z79.818 - detention (current) use of other agents affecting estrogen receptors and estrogen levels (ICD-10) S/P radiation therapy ?Z92.3 - Personal history of irradiation (ICD-10) Health care directive on file ?Z78.9 - Other specified health status (ICD-10) Adenocarcinoma of prostate ?C61 - Malignant neoplasm of prostate (ICD-10) Social History Narrative: He lives in [place]. He is . His closest contact, primary support and healthcare power of litigation attorney associate is Paulette Russo, his ex- and current friend. Nonsmoker. Former moderate alcohol consumption but none for several months. What is your current living situation?: I presently have a place to live Problems where you live: no known problems Problems where you live details: n/a In the past 12 months, utilities in danger of being shut off: no In past 12 months, lack of transportation kept you from medical appts, meetings, work, or getting things needed for daily living: no In the past 12 mos, have been you worried that your food would run out before you had money to buy more?: never true In the past 12 mos, the food you bought just didn't last and you didn't have money to buy more?: never true Highest level of school completed/degree received: Master's degree Smoking Status: Never smoker Do you use any of these nicotine containing products: None How often do you have a drink containing alcohol: never AUDIT-C Alcohol total score: 0 Non-prescribed substance use: denies use Caffeine: Yes How often does anyone, including family, friends and others, physically hurt you: never How often does anyone, including family, friends and others, insult or talk down to you: never How often does anyone, including family, friends and others, threaten you with harm: never How often does anyone, including family, friends and others, scream or curse at you: never service: No Exam Narrative: Exam Narrative: GEN: Patient is awake and alert, he appears quite uncomfortable HEENT: EOMIs bilaterally, no scleral icterus CV: Pulse palpates in the 90s R: LCTA bilaterally, no wheezing Ab: Soft, discomfort with palpation over suprapubic region Skin: No concerning skin lesions or rashes on exposed skin Neuro: Nonfocal Psych: Appropriate Const: Vital Signs, click to edit/add: Vital Signs - 24 hr 02/18/24 10:21 02/18/24 10:31 02/18/24 10:43 Temperature 97.5 F L Pulse Rate Pulse Rate [Pulse Oximeter] Respiratory Rate 16 20 18 Blood Pressure Blood Pressure [Ri ght Upper Arm] 102/65 Pulse Oximetry 99 Oxygen Delivery Me thod Room Air 02/18/24 10:44 02/18/24 11:10 02/18/24 11:29 Temperature Pulse Rate Pulse Rate [Pulse Oximeter] 90 90 Respiratory Rate 20 Blood Pressure Blood Pressure [Ri ght Upper Arm] 131/98 H Pulse Oximetry 96 96 Oxygen Delivery Me thod Room Air 02/18/24 11:56 02/18/24 12:13 02/18/24 12:29 Temperature 97.2 F L 97.3 F L 97.5 F L Pulse Rate 91 98 102 H Pulse Rate [Pulse Oximeter] Respiratory Rate 18 18 20 Blood Pressure 147/80 H 147/80 H 158/91 H Blood Pressure [Ri ght Upper Arm] Pulse Oximetry 99 99 99 Oxygen Delivery Me thod Same Day Admit/Disch: Data Data Completed and Pending Labs on day of discharge: Labs from last 24 hours 02/18/24 09:02 Blood Type O Positive Antibody Screen NEGATIVE Crossmatch (G) See Detail Same Day Admit/Disch: Sum Hospital Course Hospital Course: Upon arrival to the floor, patient endorsed fairly severe suprapubic pain and was not draining from his Mccann catheter. Urology consulted by phone, recommended removing Mccann with attempt to urinate; this was unsuccessful. We then attempted to replace 3 way catheter for CBI; also unsuccessful. Reviewed again with Dr. Rodrigues, who agrees that patient needs transfer to [facility] for urgent Urology intervention. Given urgency of Mr. Thibodeaux's Urological situation, he was transferred to the ER at [facility] by ambulance. Upon discharge, he was receiving 1 unit of blood. He also received 10 mg of IV morphine prior to discharge. Status at Discharge Functional status at discharge: bed bound Time Spent with Patient Time attestation: Total time spent providing and/or coordinating discharge services: Time spent: Greater than 30 minutes Specific discharge activities: 78 minutes spent in total with admission and transfer including coordination of care with Urology, attempts at bladder catheterization Provider Date of admission: 02/18/24 11:33 Primary care physician: Rivas Torres MD Admitting clinician: Iris Lindquist Attending physician on admission: Iris Lindquist Attending physician on discharge: Iris Lindquist Discharging clinician: Iris Lindquist Anticipated date of discharge: 02/18/24 Same Day Admit/Disch: Med Pre-admit Medications Home Medications ?Medication ?Instructions ?Recorded ?Confirmed ?Type rosuvastatin 5 mg tablet 5 mg PO DAILY 03/28/22 02/18/24 History tamsulosin 0.4 mg capsule 0.8 mg PO DAILY 03/28/22 02/18/24 History cyanocobalamin (vitamin B-12) 500 mcg PO Q3D 01/31/23 02/18/24 History 1,000 mcg capsule leuprolide acetate (6 month) 45 mg 45 mg IM [id number] 01/31/23 02/18/24 History intramuscular syringe kit (Lupron Depot) potassium chloride 20 mEq 40 meq PO BID 10/21/23 02/18/24 History tablet,extended release ibuprofen 200 mg tablet (Advil) 400 mg PO Q8H PRN 12/18/23 02/18/24 History lisinopril 20 mg tablet 10 mg PO QDAY 02/18/24 02/18/24 History
--- NOTE | 2024-02-18 14:41 | PC.NURSE ---
Discharge: Admitted to med surg at 1200, packed RBC started, no reactions noted. VSS, slightly tachycardic. Patient rating his pain a 9, IV morphine given, see OCT. Transferred to higher level of care at 1345 via EMS.
== END 2024-02-18 13:45 | disposition short-term general hospital (02) ==
LOC: ED 11:15 → MEDSURG 11:33
PROVIDERS: Admitting Provider Family Medicine; Emergency Provider Family Medicine; PCP Family Medicine; Visit Provider Family Medicine
DX: E83.51 Hypocalcemia (principal); D64.9 Anemia, unspecified; C61 Malignant neoplasm of prostate; C79.51 Secondary malignant neoplasm of bone; R33.9 Retention of urine, unspecified; R42 Dizziness and giddiness; D69.6 Thrombocytopenia, unspecified; R10.2 Pelvic and perineal pain; R53.83 Other fatigue; R25.2 Cramp and spasm; Z92.3 Personal history of irradiation; Z78.9 Other specified health status
CPT/HCPCS: 36415; 36430; 86850; 86900; 86901; 86922; 93005; 94761; 96365; 96375; 99284; 99285; G0378; J0613; J2270; P9016

== ENCOUNTER 2024-02-18 13:38 | Outpatient (CLI) | payer MEDICARE, BC, SELFPAY ==
--- OUTSIDE RECORDS SUMMARY | 2024-02-22 01:11 | XMS_ITS | Encounter Summary ---
Author Organization [facility] Address [address] [place] [id number] Care Team Providers Care Improvement Engineer Name Role Phone Elsewhere, Pcp Primary Care Provider Unavailabl e Encounter Details Date Type Department Care Team (Late st Contact Info) Description 01/27/2024 Clinical Communication Department of Radiology, [facility], in [place], [place] [address] [place] [phone] Elizabeth Barragan R.N. [address] [place] [address] Social History Tobacco Use Types Packs/Day Years [...] heating? Not hard at all 01/24/2023 [facility] [facility] - Occupational Stress [...] Master's degree (e.g., MA, MS, Gail, MEd, IV THERAPY NURSE, JAMIE) 12/21/2021 Sex and Gender Information Value [...] CDT Appointment Department of Radiology in [address] [address] Marilin Kaiser M.D. [address] [place] [address] 03/04/2024 1:30 PM CDT Appointment Department of Radiology in [address] [address] Marilin Kaiser M.D. [address] [place] [address] 03/05/2024 9:15 AM CDT Appointment Department of Radiology in [address] [address] Marilin Kaiser M.D. [address] [place] [address] 04/15/2024 1:15 PM CDT Appointment Department of Radiology in [address] [address] Marilin Kaiser M.D. [address] [place] [address] 04/15/2024 1:30 PM CDT Appointment Department of Radiology in [address] [address] Marilin Kaiser M.D. [address] [place] [address] 04/16/2024 9:15 AM CDT Appointment Department of Radiology in [address] [address] Marilin Kaiser M.D. [address] [place] [address] 05/27/2024 12:45 PM CDT Appointment Department of Radiology in [place] [address] [place] [address] Marilin Kaiser M.D. [address] [place] [address] 05/27/2024 1:00 PM CDT Appointment Department of Radiology in [address] [address] Marilin Kaiser M.D. [address] [place] [address] 05/28/2024 9:15 AM CDT Appointment Department of Radiology in [address] [address] Marilin Kaiser M.D. [address] [place] [address] 07/08/2024 1:15 PM NIGHT WORKER Appointment Department of Radiology in [address] [address] Marilin Kaiser M.D. [address] [place] [address] 07/08/2024 1:30 PM NIGHT WORKER Appointment Department of Radiology in [address] [address] Marilin Kaiser M.D. [address] [place] [address] 07/09/2024 9:45 AM NIGHT WORKER Appointment Department of Radiology in [place], [place] [address] [place] [address] Marilin Kaiser M.D. [address] [place] [address] 08/19/2024 12:45 PM NIGHT WORKER Appointment Department of Radiology in [place], [place] [address] [place] [address] Marilin Kaiser M.D. [address] [place] [address] 08/19/2024 1:00 PM NIGHT WORKER Appointment Department of Radiology in [place] [address] [place] [address] Marilin Kaiser M.D. [address] [place] [address] 08/20/2024 9:45 AM NIGHT WORKER Appointment Department of Radiology in [place] [address] [place] [address] Marilin Kaiser M.D. [address] [place] [address] documented as of this encounter Visit Diagnoses Not on filedocumented in this encounter Care Teams Improvement Engineer Relationship Specialty Start Date End Date Elsewhere, Pcp PCP - General Family Medicine 08/31/20 documented as of this encounter
--- OUTSIDE RECORDS SUMMARY | 2024-02-22 01:11 | XMS_ITS | Encounter Summary ---
Author Organization [facility] Address [address] [place] [address] Care Team Providers Care Creasing And Cutting Press Feeder Name Role Phone Elsewhere, Pcp Primary Care Provider Unavailabl e Encounter Details Date Type Department Care Team (Late st Contact Info) Description 02/05/2024 Clinical Communication Department of Radiology in [place], [place] [address] [place] [address] Peterson Rodas Social History Tobacco Use Types [...] often do you attend chur ch or bahai services? Never 12/21/2021 Do you belong to any clubs o r organizations such as congregational groups, unions, fraternal or athletic groups, or [...] your living situation today? I have a [facility] place to live 01/24/2023 Education Answer Date Recorded What is the highest level of school you have completed or the highest degree you have received? Master's degree (e.g., MA, MS, Gail, MEd, PSYCHOSOCIAL REHABILITATION COUNSELOR, JAMIE) 12/21/2021 Sex and Gender Information Value Date Recorded Sex Assigned at Male 12/21/2021 7:22 AM CDT Gender Identity Male 12/21/2021 7:22 AM CDT Sexual Orientation Straight 12/21/2021 7: 22 AM CDT documented as of this encounter Plan of Treatment Upcoming Encounters Date Type Department Care Team (Late st Contact Info) Description 03/04/2024 1:15 PM CDT Appointment Department of Radiology in [address] [address] Marilin Kaiser M.D. [address] [place] [address] 03/04/2024 1:30 PM CDT Appointment Department of Radiology in [address] [address] Marilin Kaiser M.D. [address] [place] [address] 03/05/2024 9:15 AM CDT Appointment Department of Radiology in [address] [address] Marilin Kaiser M.D. [address] [place] [address] 04/15/2024 1:15 PM CDT Appointment Department of Radiology in [address] [address] Marilin Kaiser M.D. [address] [place] [address] 04/15/2024 1:30 PM CDT Appointment Department of Radiology in [address] [address] Marilin Kaiser M.D. [address] [place] [address] 04/16/2024 9:15 AM CDT Appointment Department of Radiology in [address] [address] Marilin Kaiser M.D. [address] [place] [address] 05/27/2024 12:45 PM CDT Appointment Department of Radiology in [address] [address] Marilin Kaiser M.D. [address] [place] [address] 05/27/2024 1:00 PM CDT Appointment Department of Radiology in [address] [address] Marilin Kaiser M.D. [address] [place] [address] 05/28/2024 9:15 AM CDT Appointment Department of Radiology in [address] [address] Marilin Kaiser M.D. [address] [place] [address] 07/08/2024 1:15 PM BUS VAN DRIVER Appointment Department of Radiology in [address] [address] Marilin Kaiesr M.D. [address] [place] [address] 07/08/2024 1:30 PM BUS VAN DRIVER Appointment Department of Radiology in [address] [address] Marilin Kaiser M.D. [address] [place] [address] 07/09/2024 9:45 AM BUS VAN DRIVER Appointment Department of Radiology in [address] [address] Marilin Kaiser M.D. [address] [place] [address] 08/19/2024 12:45 PM BUS VAN DRIVER Appointment Department of Radiology in [address] [address] Marilin Kaiser M.D. [address] [place] [address] 08/19/2024 1:00 PM BUS VAN DRIVER Appointment Department of Radiology in [address] [address] Marilin Kaiser M.D. [address] [facility] [place] [address] 08/20/2024 9:45 AM BUS VAN DRIVER Appointment Department of Radiology in [place], [place] [address] [place] [address] Marilin Kaiser M.D. [address] [facility] [place] [address] documented as of this encounter Visit Diagnoses Not on filedocumented in this encounter Care Teams Creasing And Cutting Press Feeder Relationship Specialty Start Date End Date Elsewhere, Pcp PCP - General Family Medicine 08/31/20 documented as of this encounter
--- OUTSIDE RECORDS SUMMARY | 2024-02-22 01:11 | XMS_ITS | Clinical Summary ---
Author Organization [facility] Address [address] [place] [address] Care Team Providers Care Ship Liner Name Role Phone Elsewhere, Pcp Primary Care Provider Unavailabl e Source Comments Patient records contain information from all sites at [facility]. For routine questions regarding patient records, call [phone] during business hours, M-F 8:00 AM - 5:00 PM Central Time. Record requests for emergency care only can be directed to [phone] at any time.[facility] Allergies Active Allergy Reactions Criticality Noted [...] IIA(T1c, N0, M0, PSA: Less than 10, [place] 7) - Unsigned Encounters Date Type Department Care Team Description 02/05/2024 Clinical Communication Department of Radiology in [place], [place] [address] [place] [address] Peterson Rodas 01/27/2024 Clinical Communication Department of Radiology, [facility] in [place], [place] [address] [place] [address] Elizabeth Barragan R.N. 01/23/2024 9:03 AM CDT - 01/23/2024 11:59 PM CDT Hospital Encounter Department of Radiology in [address] [address] Marilin Kaiser M.D. Primary Malignant Neoplasm Of Prostate (HCC) Discharge Disposition: Home or Self Care 01/22/2024 11:46 AM CDT - 01/22/2024 11:59 PM CDT Hospital Encounter Department of Radiology in [address] [address] Marilin Kaiser M.D. Primary Malignant Neoplasm Of Prostate (HCC) Discharge Disposition: Home or Self Care 01/22/2024 11:46 AM CDT - 01/22/2024 2:02 PM CDT Hospital Encounter Department of Radiology in [address] [address] Marilin Kaiser M.D. Dick, Michael D, P.A.-C. Primary Malignant Neoplasm Of Prostate (HCC) 01/02/2024 11:55 AM CDT Ancillary Procedure Department of Radiology in [place], [place] [address] [place] [address] Evelina Ontiveros APRN, C.N.P., D.N.P. Primary Malignant Neoplasm Of Prostate (HCC); Secondary Malignant Neoplasm Bone (HCC) 01/02/2024 Clinical Communication Department of Radiology in [place], [place] [address] [place] [address] Peterson Rodas 01/02/2024 Orders Only Department of Radiology in [place], [place] [address] [place] [address] Evelina Ontiveros APRN C.N.PLanden, D.N.P. Primary Malignant Neoplasm Of Prostate (HCC) (Primary Dx); Secondary Malignant Neoplasm Bone (HCC) 12/27/2023 Documentation Department of Radiology in [place], [place] [address] [place] [address] Evelina Ontiveros APRN C.N.P., D.N.P. 12/27/2023 Orders Only Department of Oncology in [place], [place] [address] [place] [address] Renetta Tan, R.NLanden Primary Malignant Neoplasm Of Prostate (HCC) (Primary Dx) 12/26/2023 Orders Only Department of Oncology in [place], [place] [address], [place] [address] Renetta Tna, RLandenNLanden Secondary Malignant Neoplasm Bone (HCC) (Primary Dx); Primary Malignant Neoplasm Of Prostate (HCC) 12/26/2023 Orders Only Department of Oncology in [place], [place] [address] [place] [address] Marilin Kaiser M.D. 12/26/2023 Orders Only Department of Oncology in [place], [place] [address] [place] [address] Marilin Kaiser M.D. 12/24/2023 10:33 AM CDT - 12/24/2023 11:59 PM CDT Hospital Encounter Department of Radiology in [place], [place] [address] [place] [address] Marilin Kaiser M.D. Primary Malignant Neoplasm Of Prostate (HCC) Discharge Disposition: Home or Self Care 12/18/2023 Orders Only Department of Oncology in [place], [place] [address] [place] [address] Marilin Kaiser M.D. Primary Malignant Neoplasm Of [...] and heating? Not hard at all 01/24/2023 [facility] of Occupat ional Health - [...] Master's degree (e.g., MA, MS, Gail, MEd, CUTTING TORCH OPERATOR, JAMIE) 12/21/2021 Sex and Gender Information [...] 36.1 ??C (97 ??F) 08/01/2023 11:36 AM FOOD MANAGER Respiratory Rate - - Oxygen Saturation 99% 01/22/2024 1:59 PM CDT Inhaled Oxygen Concentration - - Weight 92.7 kg (204 lb 5.9 oz) 08/01/2023 11:36 AM FOOD MANAGER Height - - Body Mass Index - - Plan of Treatment Upcoming Encounters Date Type Department Care Team (Late st Contact Info) Description 03/04/2024 1:15 PM CDT Appointment Department of Radiology in [place], [place] [address] [place] [address] Marilin Kaiser M.D. [address] [place] [address] 03/04/2024 1:30 PM CDT Appointment Department of Radiology in [place], [place] [address] [place] [address] Marilin Kaiser M.D. [address] [place] [address] 03/05/2024 9:15 AM CDT Appointment Department of Radiology in [address] [address] Marilin Kaiser M.D. [address] [place] [address] 04/15/2024 1:15 PM CDT Appointment Department of Radiology in [address] [address] Marilin Kaiser M.D. [address] [place] [address] 04/15/2024 1:30 PM CDT Appointment Department of Radiology in [address] [address] Marilin Kaiser M.D. [address] [place] [address] 04/16/2024 9:15 AM CDT Appointment Department of Radiology in [address] [address] Marilin Kaiser M.D. [address] [place] [address] 05/27/2024 12:45 PM CDT Appointment Department of Radiology in [address] [address] Marilin Kaiser M.D. [address] [place] [address] 05/27/2024 1:00 PM CDT Appointment Department of Radiology in [address] [address] Marilin Kaiser M.D. [address] [place] [address] 05/28/2024 9:15 AM CDT Appointment Department of Radiology in [address] [address] Marilin Kaiser M.D. [address] [place] [address] 07/08/2024 1:15 PM FOOD MANAGER Appointment Department of Radiology in [address] [address] Marilin Kaiser M.D. [address] [place] [address] 07/08/2024 1:30 PM FOOD MANAGER Appointment Department of Radiology in [address] [address] Marilin Kaiser M.D. [address] [place] [address] 07/09/2024 9:45 AM FOOD MANAGER Appointment Department of Radiology in [address] [address] Marilin Kaiser M.D. [address] [place] [address] 08/19/2024 12:45 PM FOOD MANAGER Appointment Department of Radiology in [address] [address] Marilin Kaiser M.D. [address] [place] [address] 08/19/2024 1:00 PM FOOD MANAGER Appointment Department of Radiology in [place], [place] [address] [place] [address] Marilin Kaiser M.D. [address] [place] [address] 08/20/2024 9:45 AM FOOD MANAGER Appointment Department of Radiology in [place], [place] [address] [place] [address] Marilin Kaiser M.D. [address] [place] [address] Health Maintenance Due Date Last Done Comments Hepatitis C Screening 1945 COVID-19 Vaccine ( season) 2023 05/22/2023, 05/21/2022, 10/30/2021, Additional history exists Depression Screening (Annual PHQ-2) 08/05/2023 Influenza Vaccine (#1) 2024 , 04/13/2022, 05/24/2021, Additional history exists Creatinine Level (Kidney Function Test) 02/17/2025 02/21/2024, 02/20/2024, 02/20/2024, Additional history exists Potassium Level 02/17/2025 02/21/2024, 02/02, 02/20/2024, Additional history exists Sodium Level 02/17/2025 02/21/2024, 02/02, 02/20/2024, Additional history exists DTaP,Tdap,and Td Vaccines (3 - Td or Tdap) 05/13/2027 05/13/2017, 10/03/2005 Pneumococcal vaccine (65+ years) Completed 04/14/2018, 05/02/2015 Colonoscopy Discontinued 06/17/2020, 08/04/2018 Colonoscopy Discontinued 06/17/2020, 08/04/2018 Colorectal Cancer Screening Discontinued Colorectal Cancer Surveillance Discontinued Zoster Vaccines Completed 03/08/2021, 01/04/2021 Fall Risk Screen (Annual) Completed 01/22/2024 Abdominal Aortic Aneurysm (AAA) Screen Discontinued 02/19/2024, 02/19/2024, 11/27/[address] CT [address] Colonography Discontinued Cologuard Discontinued FIT Discontinued HPV Vaccines Aged Out No longer eligi ble based on patient's age to complete this topic Procedures Procedure Name Priority Date/Time Associated Diagnosis Comments EXTI BASIC METABOLIC PANEL, S/P Routine 02/21/2024 5:[address] ABDOMEN PELVIS WITH IV CONTRAST RAD - Routine (most inpatients and all outpatients) 02/19/2024 12:04 PM CDT NM POST TX IRIS-177 PSMA MONITORING [...] CDT Primary Malignant Neoplasm Of Prostate (HCC) from Last 3 Months or Most Recently [...] vertex to the thighs with low dose, ayu-uxowmlnqjtve-djmsiqpce CT for attenuation correction and anatomic localization,and [...] findings on the noncontrast low-dose CT: Right kjgkuYmpb-O-Mwgh tip at the low SVC. Stable 3 [...] PSMA expression score: 3 Marilin Kaiser M.D. [facility] NM PROCEDURES * NM Therapy [...] Iris-177 PSMA cycle 1. Marilin Kaiser M.D. [facility] NM PROCEDURES * Interpretation of Outside MR [...] osseous metastases within the lumbarspine as described. Balbir Ross APRNN.Emma., D.N.P. I MG MRI PROCEDURES * MR [...] CROFT NM PROCEDURES from Last 3 Months Care Teams Ship Liner Relationship Specialty Start Date End Date Elsewhere, Pcp PCP - General Family Medicine 08/31/20
--- OUTSIDE RECORDS SUMMARY | 2024-02-22 01:11 | XMS_ITS ---
Author Organization [facility] Address [address] [place] [address] Care Team Providers Care Sign Language Teacher Name Role Phone Unavailable Unavailable Unavailable Surgery Details Not on file Complications Check Surgery Details section. Procedure Estimated Blood Loss Check Surgery Details section. Procedure Findings Check Surgery Details section. Procedure Specimens Taken Check Surgery Details section.
--- OUTSIDE RECORDS SUMMARY | 2024-02-22 01:11 | XMS_ITS ---
Author Organization [facility] Address [address] [place] [address] Care Team Providers Care Engineering And Scientific Programmer Name Role Phone Elsewhere, Pcp Primary [...] Treated Prescribed Fraction Dose Prescribed Total Dose [id number] 08/01/2023 8 1 of 1 2,000 cGy 2,000 cGy [id number] 07/31/2023 7 3 of 3 1,000 cGy 3,000 cG y [id number] 07/30/2023 6 3 of 3 1,000 cGy 3,000 cG y Reference Point Last Treated On Elapsed Days Session Dose Total Dose [id number] 08/01/2023 8 2,000 cGy 2,000 cGy [id number] HumR 07/31/2023 7 1,000 cGy 3,000 cGy [id number] HumL 07/30/2023 6 1,000 cGy 3,000 cGy
--- OUTSIDE RECORDS SUMMARY | 2024-02-22 01:11 | XMS_ITS | Referral Summary ---
Author Organization [facility] Address [address] [place] [address] Care Team Providers Care Precision Assembly Inspector Name Role Phone Elsewhere, Pcp Primary Care Provider Unavailabl e Source Comments Patient records contain information from all sites at [facility]. For routine questions regarding patient records, call [phone] during business hours, M-F 8:00 AM - 5:00 PM Central Time. Record requests for emergency care only can be directed to [phone] at any time.[facility] Encounters Date Type Department Care Team Description 02/05/2024 Clinical Communication Department of Radiology in [place], [place] [address] [place] [address] Peterson Rodas 01/27/2024 Clinical Communication Department of Radiology, [facility] in [place], [place] [address] [place] [address] Elizabeth Barragan R.N. 01/23/2024 9:03 AM CDT - 01/23/2024 11:59 PM CDT Hospital Encounter Department of Radiology in [address] [address] Marilin Kaiser M.D. Primary Malignant Neoplasm Of Prostate (HCC) Discharge Disposition: Home or Self Care 01/22/2024 11:46 AM CDT - 01/22/2024 11:59 PM CDT Hospital Encounter Department of Radiology in [place], [place] [address] [place] [address] Marilin Kaiser M.D. Primary Malignant Neoplasm Of Prostate (HCC) Discharge Disposition: Home or Self Care 01/22/2024 11:46 AM CDT - 01/22/2024 2:02 PM CDT Hospital Encounter Department of Radiology in [place], [place] [address] [place] [address] Marilin Kaiser M.D. Dick, Michael D, P.A.-C. Primary Malignant Neoplasm Of Prostate (HCC) 01/02/2024 Clinical Communication Department of Radiology in [place], [place] [address] [place] [address] Peterson Rodas 01/02/2024 11:55 AM CDT Ancillary Procedure Department of Radiology in [place], [place] [address] [place] [address] Evelina Ontiveros APRN, C.N.P., D.N.P. Primary Malignant Neoplasm Of Prostate (HCC); Secondary Malignant Neoplasm Bone (HCC) 01/02/2024 Orders Only Department of Radiology in [place], [place] [address] [place] [address] Evelina Ontiveros APRN, C.N.P., D.N.P. Primary Malignant Neoplasm Of Prostate (HCC) (Primary Dx); Secondary Malignant Neoplasm Bone (HCC) 12/27/2023 Documentation Department of Radiology in [place], [place] [address] [place] [address] Evelina Ontiveros APRN, C.N.P., D.N.P. 12/27/2023 Orders Only Department of Oncology in [place], [place] [address] [place] [address] Renetta Tan RTony Primary Malignant Neoplasm Of Prostate (HCC) (Primary Dx) 12/26/2023 Orders Only Department of Oncology in [place], [place] [address] [place] [address] Renetta Tan, R.Cande. Secondary Malignant Neoplasm Bone (HCC) (Primary Dx); Primary Malignant Neoplasm Of Prostate (HCC) 12/26/2023 Orders Only Department of Oncology in [place], [place] [address] [place] [address] Marilin Kaiser M.D. 12/26/2023 Orders Only Department of Oncology in [place], [place] [address] [place] [address] Marilin Kaiser M.D. 12/24/2023 10:33 AM CDT - 12/24/2023 11:59 PM CDT Hospital Encounter Department of Radiology in [place], [place] [address] [place] [address] Marilin Kaiser M.D. Primary Malignant Neoplasm Of Prostate (HCC) Discharge Disposition: Home or Self Care 12/18/2023 Orders Only Department of Oncology in [place], [place] [address] [place] [address] Marilin Kaiser M.D. Primary Malignant Neoplasm Of [...] often do you attend chur ch or mu-ism services? Never 12/21/2021 Do you [...] hard at all 01/24/2023 [facility] of Occupat ional Health - Occupational Stress [...] your living situation today? I have a [facility] place to live 01/24/2023 Education Answer Date Recorded What is the highest level of school you have completed or the highest degree you have received? Master's degree (e.g., LETTY, MS, Gail, MEd, SECURITY PATROL DRIVER, JAMIE) 12/21/2021 Sex and Gender Information Value Date Recorded Sex Assigned at Male 12/21/2021 7:22 AM CDT Gender Identity Male 12/21/2021 7:22 AM CDT Sexual Orientation Straight 12/21/2021 7: 22 AM CDT Last Filed Vital Signs Vital Sign Reading Time Taken Comments Blood Pressure 123/65 01/22/2024 1:59 PM CDT Pulse 72 01/22/2024 1:59 PM CDT Temperature 36.1 ??C (97 ??F) 08/01/2023 11:36 AM WAREHOUSE ATTENDANT Respiratory Rate - - Oxygen Saturation 99% 01/22/2024 1:59 PM CDT Inhaled Oxygen Concentration - - Weight 92.7 kg (204 lb 5.9 oz) 08/01/2023 11:36 AM WAREHOUSE ATTENDANT Height - - Body Mass Index - - Plan of Treatment Upcoming Encounters Date Type Department Care Team (Late st Contact Info) Description 03/04/2024 1:15 PM CDT Appointment Department of Radiology in [address] [address] Marilin Kaiser M.D. [address] [place] [address] 03/04/2024 1:30 PM CDT Appointment Department of Radiology in [address] [address] Marilin Kaiser M.D. [address] [place] [address] 03/05/2024 9:15 AM CDT Appointment Department of Radiology in [address] [address] Marilin Kaiser M.D. [address] [place] [address] 04/15/2024 1:15 PM CDT Appointment Department of Radiology in [place] [address] [place] [address] Marilin Kaiser M.D. [address] [place] [address] 04/15/2024 1:30 PM CDT Appointment Department of Radiology in [address] [address] Marilin Kaiser M.D. [address] [place] [address] 04/16/2024 9:15 AM CDT Appointment Department of Radiology in [address] [address] Marilin Kaiser M.D. [address] [place] [address] 05/27/2024 12:45 PM CDT Appointment Department of Radiology in [address] [address] Marilin Kaiser M.D. [address] [place] [address] 05/27/2024 1:00 PM CDT Appointment Department of Radiology in [address] [address] Marilin Kaiser M.D. [address] [place] [address] 05/28/2024 9:15 AM CDT Appointment Department of Radiology in [address] [address] Marilin Kaiser M.D. [address] [place] [address] 07/08/2024 1:15 PM WAREHOUSE ATTENDANT Appointment Department of Radiology in [address] [address] Marilin Kaiser M.D. [address] [place] [address] 07/08/2024 1:30 PM WAREHOUSE ATTENDANT Appointment Department of Radiology in [address] [address] Marilin Kaiser M.D. [address] [place] [address] 07/09/2024 9:45 AM WAREHOUSE ATTENDANT Appointment Department of Radiology in [address] [address] Marilin Kaiser M.D. [address] [place] [address] 08/19/2024 12:45 PM WAREHOUSE ATTENDANT Appointment Department of Radiology in [address] [address] Marilin Kaiser M.D. [address] [place] [address] 08/19/2024 1:00 PM WAREHOUSE ATTENDANT Appointment Department of Radiology in [address] [address] Marilin Kaiser M.D. [address] [place] [address] 08/20/2024 9:45 AM WAREHOUSE ATTENDANT Appointment Department of Radiology in [place], [place] [address] [place] [address] Marilin Kaiser M.D. [address] [place] [address] Procedures Procedure Name Priority Date/Time Associated Diagnosis [...] vertex to the thighs with low dose, bjr-bueawnadfdph-gshwzfvxk CT for attenuation correction and anatomic localization,and [...] findings on the noncontrast low-dose CT: Right fkwodOncm-Y-Wxke tip at the low SVC. Stable 3 [...] Iris-177 PSMA cycle 1. Marilin Kaiser M.D. [facility] PROCEDURES * Interpretation of Outside MR [...] PROCEDURES from Last 3 Months Care Teams Precision Assembly Inspector Relationship Specialty Start Date End Date Elsewhere, Pcp PCP - General Family Medicine 08/31/20
--- OUTSIDE RECORDS SUMMARY | 2024-02-22 01:12 | XMS_ITS | Encounter Summary ---
Author Organization [facility] Address [address] [place] [address] Care Team Providers Care Route Inspector Name Role Phone Elsewhere, Pcp Primary Care Provider Unavailabl e Encounter Details Date Type Department Care Team (Late st Contact Info) Description 01/02/2024 Clinical Communication Department of Radiology in [place], [place] [address] [place] [address] Peterson Rodas Social History Tobacco Use Types [...] heating? Not hard at all 01/24/2023 [facility] of Occupat ional Health - Occupational [...] your living situation today? I have a [facility] place to live 01/24/2023 Education Answer Date Recorded What is the highest level of school you have completed or the highest degree you have received? Master's degree (e.g., MA, MS, Gail, MEd, EVIDENCE CUSTODIAN, JAMIE) 12/21/2021 Sex and Gender Information Value [...] PM CDT Appointment Department of Radiology in [place], [place] [address] [place] [address] Marilin Kaiser M.D. [address] [place] [address] 03/04/2024 1:30 PM CDT Appointment Department of Radiology in [address] [address] Marilin Kaiser M.D. [address] [place] [address] 03/05/2024 9:15 AM CDT Appointment Department of Radiology in [address] [address] Marilin Kaiser M.D. [address] [place] [address] 04/15/2024 1:15 PM CDT Appointment Department of Radiology in [address] [address] Marilin Kaiser M.D. [address] [place] [address] 04/15/2024 1:30 PM CDT Appointment Department of Radiology in [address] [address] Marilin Kaiser M.D. [address] [place] [address] 04/16/2024 9:15 AM CDT Appointment Department of Radiology in [address] [address] Marilin Kaiser M.D. [address] [place] [address] 05/27/2024 12:45 PM CDT Appointment Department of Radiology in [address] [address] Marilin Kaiser M.D. [address] [place] [address] 05/27/2024 1:00 PM CDT Appointment Department of Radiology in [address] [address] Marilin Kaiser M.D. [address] [place] [address] 05/28/2024 9:15 AM CDT Appointment Department of Radiology in [address] [address] Marilin Kaiser M.D. [address] [place] [address] 07/08/2024 1:15 PM PRESENTATION DESIGNER Appointment Department of Radiology in [address] [address] Marilin Kaiser M.D. [address] [place] [address] 07/08/2024 1:30 PM PRESENTATION DESIGNER Appointment Department of Radiology in [address] [address] Marilin Kaiser M.D. [address] [place] [address] 07/09/2024 9:45 AM PRESENTATION DESIGNER Appointment Department of Radiology in [address] [address] Marilin Kaiser M.D. [address] [place] [address] 08/19/2024 12:45 PM PRESENTATION DESIGNER Appointment Department of Radiology in [place], [place] [address] [place] [address] Marilin Kaiser M.D. [address] [place] [address] 08/19/2024 1:00 PM PRESENTATION DESIGNER Appointment Department of Radiology in [place], [place] [address] [place] [address] Marilin Kaiser M.D. [address] [place] [address] 08/20/2024 9:45 AM PRESENTATION DESIGNER Appointment Department of Radiology in [address] [address] Marilin Kaiser M.D. [address] [place] [address] documented as of this encounter Visit Diagnoses Not on filedocumented in this encounter Care Teams Route Inspector Relationship Specialty Start Date End Date Elsewhere, Pcp PCP - General Family Medicine 08/31/20 documented as of this encounter
--- OUTSIDE RECORDS SUMMARY | 2024-02-22 01:12 | XMS_ITS | Encounter Summary ---
Author Organization [facility] Address [address] [place] [address] Care Team Providers Care Wool Hanker Name Role Phone Elsewhere, Pcp Primary Care Provider Unavailabl e Encounter Details Date Type Department Care Team (Late st Contact Info) Description 12/26/2023 Orders Only Department of Oncology in [place], [place] [address] [place] [phone] Marilin Kaiser M.D. [address] [place] [phone] Social History Tobacco Use Types Packs/Day Years [...] and heating? Not hard at all 01/24/2023 [facility] [...] your living situation today? I have a [facility] place to live 01/24/2023 Education Answer Date Recorded What is the highest level of school you have completed or the highest degree you have received? Master's degree (e.g., MA, MS, Gail, MEd, SPEECH THERAPY DIRECTOR, JAMIE) 12/21/2021 Sex and Gender Information Value Date Recorded Sex Assigned at Male 12/21/2021 7:22 AM CDT Gender Identity Male 12/21/2021 7:22 AM CDT Sexual Orientation Straight 12/21/2021 7: 22 AM CDT documented as of this encounter Plan of Treatment Upcoming Encounters Date Type Department Care Team (Late st Contact Info) Description 03/04/2024 1:15 PM CDT Appointment Department of Radiology in [place], [place] [address] [place] [address] Marilin Kaiser M.D. [address] [place] [address] 03/04/2024 1:30 PM CDT Appointment Department of Radiology in [place], [place] [address] [place] [address] Marilin Kaiser M.D. [address] [place] [address] 03/05/2024 9:15 AM CDT Appointment Department of Radiology in [address] [address] Marilin Kaiser M.D. [address] [place] [address] 04/15/2024 1:15 PM CDT Appointment Department of Radiology in [address] [address] Marilin Kaiser M.D. [address] [place] [address] 04/15/2024 1:30 PM CDT Appointment Department of Radiology in [address] [address] Marilin Kaiser M.D. [address] [place] [address] 04/16/2024 9:15 AM CDT Appointment Department of Radiology in [address] [address] Marilin Kaiser M.D. [address] [place] [address] 05/27/2024 12:45 PM CDT Appointment Department of Radiology in [address] [address] Marilin Kaiser M.D. [address] [place] [address] 05/27/2024 1:00 PM CDT Appointment Department of Radiology in [address] [address] Marilin Kaiser M.D. [address] [place] [address] 05/28/2024 9:15 AM CDT Appointment Department of Radiology in [place], [place] [address] [place] [address] Marilin Kaiser M.D. [address] [place] [address] 07/08/2024 1:15 PM DICTATING MACHINE TRANSCRIBER Appointment Department of Radiology in [place] [address] [place] [address] Marilin Kaiser M.D. [address] [place] [address] 07/08/2024 1:30 PM DICTATING MACHINE TRANSCRIBER Appointment Department of Radiology in [place] [address] [place] [address] Marilin Kaiser M.D. [address] [place] [address] 07/09/2024 9:45 AM DICTATING MACHINE TRANSCRIBER Appointment Department of Radiology in [place] [address] [place] [address] Marilin Kaiser M.D. [address] [place] [address] 08/19/2024 12:45 PM DICTATING MACHINE TRANSCRIBER Appointment Department of Radiology in [place] [address] [place] [address] Marilin Kaiser M.D. [address] [place] [address] 08/19/2024 1:00 PM DICTATING MACHINE TRANSCRIBER Appointment Department of Radiology in [place], [place] [address] [place] [address] Marilin Kaiser M.D. [address] [place] [address] 08/20/2024 9:45 AM DICTATING MACHINE TRANSCRIBER Appointment Department of Radiology in [address] [address] Marilin Kaiser M.D. [address] [place] [address] documented as of this encounter Visit Diagnoses Not on filedocumented in this encounter Care Teams Wool Hanker Relationship Specialty Start Date End Date Elsewhere, Pcp PCP - General Family Medicine 08/31/20 documented as of this encounter
--- OUTSIDE RECORDS SUMMARY | 2024-02-22 01:12 | XMS_ITS | Encounter Summary ---
Author Organization [facility] Address [address] [place] [address] Care Team Providers Care Pressroom Supervisor Name Role Phone Elsewhere, Pcp Primary Care Provider Unavailabl e Encounter Details Date Type Department Care Team (Late st Contact Info) Description 01/02/2024 Orders Only Department of Radiology in [place], [place] [address] [place] [address] Evelina Ontiveros, AMBER, C.N.P., D.N.P. [address] [place] [address] Primary Malignant Neoplasm Of Prostate (HCC) (Primary [...] any clubs o r organizations such as judaism groups, unions, fraternal or athletic groups, or [...] and heating? Not hard at all 01/24/2023 [facility] - [facility]ational Stress Questionnaire Answer Date [...] Master's degree (e.g., MA, MS, Gail, MEd, CUTTER GRINDER, JAMIE) 12/21/2021 Sex and Gender Information Value Date Recorded Sex Assigned at Male 12/21/2021 7:22 AM CDT Gender Identity Male 12/21/2021 7:22 AM CDT Sexual Orientation Straight 12/21/2021 7: 22 AM CDT documented as of this encounter Plan of Treatment Upcoming Encounters Date Type Department Care Team (Late st Contact Info) Description 03/04/2024 1:15 PM CDT Appointment Department of Radiology in [place], [place] [address] [place] [address] Marilin Kaiser M.D. [address] [place] [address] 03/04/2024 1:30 PM CDT Appointment Department of Radiology in [place], [place] [address] [place] [address] Marilin Kaiser M.D. [address] [place] [address] 03/05/2024 9:15 AM CDT Appointment Department of Radiology in [place], [place] [address] [place] [address] Marilin Kaiser M.D. [address] [place] [address] 04/15/2024 1:15 PM CDT Appointment Department of Radiology in [place], [place] [address] [place] [address] Marilin Kaiser M.D. [address] [place] [address] 04/15/2024 1:30 PM CDT Appointment Department of Radiology in [place] [address] [place] [address] Marilin Kaiser M.D. [address] [place] [address] 04/16/2024 9:15 AM CDT Appointment Department of Radiology in [address] [address] Marilin Kaiser M.D. [address] [place] [address] 05/27/2024 12:45 PM CDT Appointment Department of Radiology in [address] [address] Marilin Kaiser M.D. [address] [place] [address] 05/27/2024 1:00 PM CDT Appointment Department of Radiology in [address] [address] Marilin Kaiser M.D. [address] [place] [address] 05/28/2024 9:15 AM CDT Appointment Department of Radiology in [address] [address] Marilin Kaiser M.D. [address] [place] [address] 07/08/2024 1:15 PM WIRER MAINTENANCE Appointment Department of Radiology in [address] [address] Marilin Kaiser M.D. [address] [place] [address] 07/08/2024 1:30 PM WIRER MAINTENANCE Appointment Department of Radiology in [address] [address] Marilin Kaiser M.D. [address] [place] [address] 07/09/2024 9:45 AM WIRER MAINTENANCE Appointment Department of Radiology in [address] [address] Marilin Kaiser M.D. [address] [place] [address] 08/19/2024 12:45 PM WIRER MAINTENANCE Appointment Department of Radiology in [address] [address] Marilin Kaiser M.D. [address] [place] [address] 08/19/2024 1:00 PM WIRER MAINTENANCE Appointment Department of Radiology in [place], [place] [address] [place] [address] Marilin Kaiser M.D. [address] [facility] [place] [address] 08/20/2024 9:45 AM WIRER MAINTENANCE Appointment Department of Radiology in [place], [place] [address] [place] [address] Marilin Kaiser M.D. 404 [facility] [place] [address] documented as of this encounter Results * [...] Paraspinal soft tissues are unremarkable. Procedure Note Danieel Crews M.D. - 01/02/2024 EXAM: INTERPRETATION OF [...] (HCC) documented in this encounter Care Teams Pressroom Supervisor Relationship Specialty Start Date End Date Elsewhere, Pcp PCP - General Family Medicine 08/31/20 documented as of this encounter
--- OUTSIDE RECORDS SUMMARY | 2024-02-22 01:12 | XMS_ITS | Encounter Summary ---
Author Organization [facility] Address [address] [place] [address] Care Team Providers Care Sludge Mill Operator Name Role Phone Elsewhere, Pcp Primary Care Provider Unavailabl e Encounter Details Date Type Department Care Team (Late st Contact Info) Description 12/26/2023 Orders Only Department of Oncology in [place], [place] [address] [place] [phone] Marilin Kaiser M.D. [address] [place] [phone] Social History Tobacco Use Types Packs/Day Years [...] all 01/24/2023 [facility]at ional Health [...] Master's degree (e.g., MA, MS, Gail, MEd, EXHIBITION SPECIALIST, JAMIE) 12/21/2021 Sex and Gender Information Value Date Recorded Sex Assigned at Male 12/21/2021 7:22 AM CDT Gender Identity Male 12/21/2021 7:22 AM CDT Sexual Orientation Straight 12/21/2021 7: 22 AM CDT documented as of this encounter Plan of Treatment Upcoming Encounters Date Type Department Care Team (Late st Contact Info) Description 03/04/2024 1:15 PM CDT Appointment Department of Radiology in [place], [place] [address] [place] [address] Marilin Kaiser M.D. [address] [place] [address] 03/04/2024 1:30 PM CDT Appointment Department of Radiology in [place], [place] [address] [place] [address] Marilin Kaiser M.D. [address] [place] [address] 03/05/2024 9:15 AM CDT Appointment Department of Radiology in [address] [address] Marilin Kaiser M.D. [address] [place] [address] 04/15/2024 1:15 PM CDT Appointment Department of Radiology in [address] [address] Marilin Kaiser M.D. [address] [place] [address] 04/15/2024 1:30 PM CDT Appointment Department of Radiology in [address] [address] Marilin Kaiser M.D. [address] [place] [address] 04/16/2024 9:15 AM CDT Appointment Department of Radiology in [address] [address] Marilin Kaiser M.D. [address] [place] [address] 05/27/2024 12:45 PM CDT Appointment Department of Radiology in [address] [address] Marilin Kaiser M.D. [address] [place] [address] 05/27/2024 1:00 PM CDT Appointment Department of Radiology in [address] [address] Marilin Kaiser M.D. [address] [place] [address] 05/28/2024 9:15 AM CDT Appointment Department of Radiology in [place], [place] [address] [place] [address] Marilin Kaiser M.D. [address] [place] [address] 07/08/2024 1:15 PM NAME PLATE STAMPER Appointment Department of Radiology in [place] [address] [place] [address] Marilin Kaiser M.D. [address] [place] [address] 07/08/2024 1:30 PM NAME PLATE STAMPER Appointment Department of Radiology in [place] [address] [place] [address] Marilin Kaiser M.D. [address] [place] [address] 07/09/2024 9:45 AM NAME PLATE STAMPER Appointment Department of Radiology in [place] [address] [place] [address] Marilin Kaiser M.D. [address] [place] [address] 08/19/2024 12:45 PM NAME PLATE STAMPER Appointment Department of Radiology in [place] [address] [place] [address] Marilin Kaiser M.D. [address] [place] [address] 08/19/2024 1:00 PM NAME PLATE STAMPER Appointment Department of Radiology in [place], [place] [address] [place] [address] Marilin Kaiser M.D. [address] [place] [address] 08/20/2024 9:45 AM NAME PLATE STAMPER Appointment Department of Radiology in [address] [address] Marilin Kaiser M.D. [address] [place] [address] documented as of this encounter Visit Diagnoses Not on filedocumented in this encounter Care Teams Sludge Mill Operator Relationship Specialty Start Date End Date Elsewhere, Pcp PCP - General Family Medicine 08/31/20 documented as of this encounter
--- OUTSIDE RECORDS SUMMARY | 2024-02-22 01:12 | XMS_ITS | Encounter Summary ---
Author Organization [facility] Address [address] [place] [address] Care Team Providers Care Public Health Dietitian Name Role Phone Elsewhere, Pcp Primary Care Provider Unavailabl e Reason for Referral * Outpatient (Routine) - Authorized Specialty Diagnoses / Procedures Referred By Contac t Referred To Contact Diagnoses Primary Malignant Neoplasm Of Prostate (HCC) Procedures NM Therapy Iris-177 PSMA Marilin Kaiser M.D. [address] [place] [address] [facility] Referral ID Status Reason Start Date Expiration Date V isits Requested Visits Authorized [id number] Authorized 12/27/2023 12/26/2024 8 8 Reason for Visit * Outpatient (Routine) - Authorized Specialty Diagnoses / Procedures Referred By Javon lopez Referred To Contact Diagnoses Primary Malignant Neoplasm Of Prostate (HCC) Procedures NM Therapy Iris-177 PSMA Marilin Kaiser M.D. [address] [place] [address] [facility] Referral ID Status Reason Start Date Expiration Date V isits Requested Visits Authorized [id number] Authorized 12/27/2023 12/26/2024 8 8 Encounter Details Date Type Department Care Team (Latest Contact Info) Description 01/22/2024 11:46 AM CDT - 01/22/2024 11:59 PM CDT Hospital Encounter Department of Radiology in [place], [place] [address] [place] [address] Marilin Kaiser M.D. [address] [place] [phone] Primary Malignant Neoplasm Of Prostate (HCC) Discharge [...] How often do you attend chur or mosque services? Never 12/21/2021 Do you [...] and heating? Not hard at all 01/24/2023 [facility] - Occupational Stress Questionnaire Answer Date Recorded [...] Master's degree (e.g., MA, MS, Gail, MEd, RESIDENTIAL PLUMBER, JAMIE) 12/21/2021 Sex and Gender Information Value [...] PM CDT Appointment Department of Radiology in [address] [address] Marilin Kaiser M.D. [address] [place] [address] 03/04/2024 1:30 PM CDT Appointment Department of Radiology in [address] [address] Marilin Kaiser M.D. [address] [place] [address] 03/05/2024 9:15 AM CDT Appointment Department of Radiology in [address] [address] Marilin Kaiser M.D. [address] [place] [address] 04/15/2024 1:15 PM CDT Appointment Department of Radiology in [address] [address] Marilin Kaiser M.D. [address] [place] [address] 04/15/2024 1:30 PM CDT Appointment Department of Radiology in [address] [address] Marilin Kaiser M.D. [address] [place] [address] 04/16/2024 9:15 AM CDT Appointment Department of Radiology in [place], [place] [address] [place] [address] Marilin Kaiser M.D. [address] [place] [address] 05/27/2024 12:45 PM CDT Appointment Department of Radiology in [address] [address] Marilin Kaiser M.D. [address] [place] [address] 05/27/2024 1:00 PM CDT Appointment Department of Radiology in [address] [address] Marilin Kaiser M.D. [address] [place] [address] 05/28/2024 9:15 AM CDT Appointment Department of Radiology in [address] [address] Marilin Kaiser M.D. [address] [place] [address] 07/08/2024 1:15 PM LAW LIBRARIAN Appointment Department of Radiology in [address] [address] Marilin Kaiser M.D. [address] [place] [address] 07/08/2024 1:30 PM LAW LIBRARIAN Appointment Department of Radiology in [address] [address] Marilin Kaiser M.D. [address] [place] [address] 07/09/2024 9:45 AM LAW LIBRARIAN Appointment Department of Radiology in [place] [address] [place] [address] Marilin Kaiser M.D. [address] [place] [address] 08/19/2024 12:45 PM LAW LIBRARIAN Appointment Department of Radiology in [address] [address] Marilin Kaiser M.D. [address] [place] [address] 08/19/2024 1:00 PM LAW LIBRARIAN Appointment Department of Radiology in [address] [address] Marilin Kaiser M.D. [address] [place] [address] 08/20/2024 9:45 AM LAW LIBRARIAN Appointment Department of Radiology in [address] [address] Marilin Kaiser M.D. [address] [place] [address] documented as of this encounter Procedures Procedure [...] mL/hr documented in this encounter Care Teams Public Health Dietitian Relationship Specialty Start Date End Date Elsewhere, Pcp PCP - General Family Medicine 08/31/20 documented as of this encounter
--- OUTSIDE RECORDS SUMMARY | 2024-02-22 01:12 | XMS_ITS | Encounter Summary ---
Author Organization [facility] Address [address] [place] [address] Care Team Providers Care Fur Dressing Supervisor Name Role Phone Elsewhere, Pcp Primary Care Provider Unavailabl e Encounter Details Date Type Department Care Team (Late st Contact Info) Description 12/27/2023 Documentation Department of Radiology in [place], [place] [address] [place] [address] Evelina Ontiveros, AMBER, C.N.P., D.N.P. [address] [place] [address] Social History Tobacco Use Types Packs/Day Years [...] heating? Not hard at all 01/24/2023 [facility] of Occupat ional Health - Occupational [...] your living situation today? I have a [facility] place to live 01/24/2023 Education Answer Date Recorded What is the highest level of school you have completed or the highest degree you have received? Master's degree (e.g., MA, MS, Gail, MEd, NIB FINISHER, JAMIE) 12/21/2021 Sex and Gender Information Value [...] Prostate biopsy was performed. Pathology demonstrated adenocarcinoma, Rome 3+4=7. Adenocarcinomawas an every biopsy specimen, generally with greater than 50% total surface area involved. Perineural invasion was also present. T1c. 01/29/2011 - 03/28/2011 Radiation Therapy Intensity modulated radiation therapy to the prostate to a dose of 7560 cGy in 42 fractions under the care of Dr. Rachael Sanford at [facility] in [place], [place]. 01/2011 - Biological/Targeted/Hormone Therapy Lupron 30 [...] and Procedures Cryotherapy with Dr. Yu at [facility] [place]. The patient underwent placement of 13 cryo [...] 11/30/2021 Critical Imaging PSMA PET scan at [facility] demonstrated radiotracer positive lesion in the [...] Common Hereditary Cancers Panel (47 genes) via [employer]. See test report fordetails regarding genes analyzed and testing methodologies. RESULT: NEGATIVE FOR CLINICALLY ACTIONABLE VARIANTS No clinically actionable (pathogenic or likely pathogenic) variants were detected in the genes analyzed. One variant of uncertain significance was detected: POLE c.2134C>G (p.[id number]). No laboratory classifies this variant as clinically-actionable [...] Master's degree (e.g., MA, MS, Gail, MEd, NIB FINISHER, JAMIE) Occupational History Not on file Tobacco [...] CDT Appointment Department of Radiology in [address] [address] Marilin Kaiser M.D. [address] [place] [address] 03/04/2024 1:30 PM CDT Appointment Department of Radiology in [address] [address] Marilin Kaiser M.D. [address] [place] [address] 03/05/2024 9:15 AM CDT Appointment Department of Radiology in [address] [address] Mrailin Kaiser M.D. [address] [place] [address] 04/15/2024 1:15 PM CDT Appointment Department of Radiology in [address] [address] Marilin Kaiser M.D. [address] [place] [address] 04/15/2024 1:30 PM CDT Appointment Department of Radiology in [address] [address] Marilin Kaiser M.D. [address] [place] [address] 04/16/2024 9:15 AM CDT Appointment Department of Radiology in [address] [address] Marilin Kaiser M.D. [address] [place] [address] 05/27/2024 12:45 PM CDT Appointment Department of Radiology in [address] [address] Marilin Kaiser M.D. [address] [place] [address] 05/27/2024 1:00 PM CDT Appointment Department of Radiology in [address] [address] Marilin Kaiser M.D. [address] [place] [address] 05/28/2024 9:15 AM CDT Appointment Department of Radiology in [address] [address] Marilin Kaiser M.D. [address] [place] [address] 07/08/2024 1:15 PM SPECIAL SERVICES SUPERVISOR Appointment Department of Radiology in [address] [address] Marilin Kaiser M.D. [address] [place] [address] 07/08/2024 1:30 PM SPECIAL SERVICES SUPERVISOR Appointment Department of Radiology in [address] [address] Marilin Kaiser M.D. [address] [place] [address] 07/09/2024 9:45 AM SPECIAL SERVICES SUPERVISOR Appointment Department of Radiology in [address] [address] Marilin Kaiser M.D. [address] [place] [address] 08/19/2024 12:45 PM SPECIAL SERVICES SUPERVISOR Appointment Department of Radiology in [address] [address] Marilin Kaiser M.D. [address] [place] [address] 08/19/2024 1:00 PM SPECIAL SERVICES SUPERVISOR Appointment Department of Radiology in [address] [address] Marilin Kaiser M.D. [address] [place] [address] 08/20/2024 9:45 AM SPECIAL SERVICES SUPERVISOR Appointment Department of Radiology in [place], [place] [address] [place] [address] Marilin Kaiser M.D. 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
--- OUTSIDE RECORDS SUMMARY | 2024-02-22 01:12 | XMS_ITS | Encounter Summary ---
Author Organization [facility] Address [address] [place] [address] Care Team Providers Care Air Vice Marshal Name Role Phone Elsewhere, Pcp Primary Care Provider Unavailabl e Encounter Details Date Type Department Care Team (Latest Contact Info) Description 01/02/2024 11:55 AM CDT Ancillary Procedure Department of Radiology in [place], [place] [address] [place] [phone] Evelina Ontiveros, AMBER, C.N.P., D.N.P. [address] [place] [address] Primary Malignant Neoplasm Of Prostate (HCC); Secondary [...] any clubs o r organizations such as episcopal groups, unions, fraternal or athletic groups, or [...] and heating? Not hard at all 01/24/2023 [employer] of Occupat ional Health - Occupational Stress [...] your living situation today? I have a [facility] place to live 01/24/2023 Education Answer Date Recorded What is the highest level of school you have completed or the highest degree you have received? Master's degree (e.g., MA, MS, Gail, MEd, HAND SHAPER, JAMIE) 12/21/2021 Sex and Gender Information Value Date Recorded Sex Assigned at Male 12/21/2021 7:22 AM CDT Gender Identity Male 12/21/2021 7:22 AM CDT Sexual Orientation Straight 12/21/2021 7: 22 AM CDT documented as of this encounter Plan of Treatment Upcoming Encounters Date Type Department Care Team (Late st Contact Info) Description 03/04/2024 1:15 PM CDT Appointment Department of Radiology in [place], [place] [address] [place] [address] Marilin Kaiser M.D. [address] [place] [phone] 03/04/2024 1:30 PM CDT Appointment Department of Radiology in [place], [place] [address] [place] [address] Marilin Kaiser M.D. [address] [place] [address] 03/05/2024 9:15 AM CDT Appointment Department of Radiology in [place], [place] [address] [place] [address] Marilin Kaiser M.D. [address] [place] [address] 04/15/2024 1:15 PM CDT Appointment Department of Radiology in [place], [place] [address] [place] [address] Marilin Kaiser M.D. [address] [place] [address] 04/15/2024 1:30 PM CDT Appointment Department of Radiology in [place], [place] [address] [place] [address] Marilin Kaiser M.D. [address] [place] [address] 04/16/2024 9:15 AM CDT Appointment Department of Radiology in [address] [address] Marilin Kaiser M.D. [address] [place] [address] 05/27/2024 12:45 PM CDT Appointment Department of Radiology in [address] [address] Marilin Kaiser M.D. [address] [place] [address] 05/27/2024 1:00 PM CDT Appointment Department of Radiology in [address] [place] [address] Marilin Kaiser M.D. [address] [place] [address] 05/28/2024 9:15 AM CDT Appointment Department of Radiology in [address] [address] Marilin Kaiser M.D. [address] [place] [address] 07/08/2024 1:15 PM FURNACE CHECKER Appointment Department of Radiology in [address] [address] Marilin Kaiser M.D. [address] [place] [phone] 07/08/2024 1:30 PM FURNACE CHECKER Appointment Department of Radiology in [address] [address] Marilin Kaiser M.D. [address] [place] [address] 07/09/2024 9:45 AM FURNACE CHECKER Appointment Department of Radiology in [address] [address] Marilin Kaiser M.D. [address] [place] [address] 08/19/2024 12:45 PM FURNACE CHECKER Appointment Department of Radiology in [address] [address] Marilin Kaiser M.D. [address] [place] [address] 08/19/2024 1:00 PM FURNACE CHECKER Appointment Department of Radiology in [place], [place] [address] [place] [address] Marilin Kaiser M.D. [address] [place] [address] 08/20/2024 9:45 AM FURNACE CHECKER Appointment Department of Radiology in [place] [address] [place] [address] Marilin Kaiser M.D. [address] [place] [address] documented as of this encounter Procedures Procedure [...] (HCC) documented in this encounter Care Teams Air Vice Marshal Relationship Specialty Start Date End Date Elsewhere, Pcp PCP - General Family Medicine 08/31/20 documented as of this encounter
--- OUTSIDE RECORDS SUMMARY | 2024-02-22 01:12 | XMS_ITS | Encounter Summary ---
Author Organization [facility] Address [address] [place] [address] Care Team Providers Care Loan Teller Name Role Phone Elsewhere, Pcp Primary Care Provider Unavailabl e Reason for Referral * Outpatient (Routine) - Authorized Specialty Diagnoses / Procedures Referred By Javon loepz Referred To Contact Diagnoses Primary Malignant Neoplasm Of Prostate (HCC) Procedures NM Post Therapy Iris-177 PSMA Monitoring Whole Body with SPECT CT Marilin Bland M.D. [address] [place] [address] [facility] Referral ID Status Reason Start Date Expiration Date V isits Requested Visits Authorized [id number] Authorized 12/27/2023 12/26/2024 8 8 Reason for Visit * Outpatient (Routine) - Authorized Specialty Diagnoses / Procedures Referred By Javon lopez Referred To Contact Diagnoses Primary Malignant Neoplasm Of Prostate (HCC) Procedures NM Post Therapy Iris-177 PSMA Monitoring Whole Body with SPECT CT Marilin Bland M.D. [address] [place] [address] [facility] Referral ID Status Reason Start Date Expiration Date V isits Requested Visits Authorized [id number] Authorized 12/27/2023 12/26/2024 8 8 Encounter Details Date Type Department Care Team (Latest Contact Info) Description 01/23/2024 9:03 AM CDT - 01/23/2024 11:59 PM CDT Hospital Encounter Department of Radiology in [place], [place] [address] [place] [address] Marilin Kaiser M.D. [address] [place] [address] Primary Malignant Neoplasm Of Prostate [...] often do you attend chur ch or nondenominational services? Never 12/21/2021 Do you belong to [...] your living situation today? I have a [facility] place to live 01/24/2023 Education Answer Date Recorded What is the highest level of school you have completed or the highest degree you have received? Master's degree (e.g., MA, MS, Gail, MEd, PRINT BINDING AND FINISHING WORKER, JAMIE) 12/21/2021 Sex and Gender Information Value [...] PM CDT Appointment Department of Radiology in [place] [address] [place] [address] Marilin Kaiser M.D. [address] [place] [phone] 03/04/2024 1:30 PM CDT Appointment Department of Radiology in [place] [address] [place] [address] Marilin Kaiser M.D. [address] [place] [address] 03/05/2024 9:15 AM CDT Appointment Department of Radiology in [address] [address] Marilin Kaiser M.D. [address] [place] [address] 04/15/2024 1:15 PM CDT Appointment Department of Radiology in [address] [address] Marilin Kaiser M.D. [address] [place] [address] 04/15/2024 1:30 PM CDT Appointment Department of Radiology in [address] [address] Marilin Kaiser M.D. [address] [place] [address] 04/16/2024 9:15 AM CDT Appointment Department of Radiology in [address] [address] Marilin Kaiser M.D. [address] [place] [address] 05/27/2024 12:45 PM CDT Appointment Department of Radiology in [address] [address] Marilin Kaiser M.D. [address] [place] [address] 05/27/2024 1:00 PM CDT Appointment Department of Radiology in [place] [address] [place] [address] Marilin Kaiser M.D. [address] [place] [address] 05/28/2024 9:15 AM CDT Appointment Department of Radiology in [address] [address] Marilin Kaiser M.D. [address] [place] [address] 07/08/2024 1:15 PM RECOVERY SPECIALIST Appointment Department of Radiology in [address] [address] Marilin Kaiser M.D. [address] [place] [address] 07/08/2024 1:30 PM RECOVERY SPECIALIST Appointment Department of Radiology in [address] [address] Marilin Kaiser M.D. [address] [place] [phone] 07/09/2024 9:45 AM RECOVERY SPECIALIST Appointment Department of Radiology in [address] [address] Marilin Kaiser M.D. [address] [place] [address] 08/19/2024 12:45 PM RECOVERY SPECIALIST Appointment Department of Radiology in [address] [address] Marilin Kaiser M.D. [address] [place] [address] 08/19/2024 1:00 PM RECOVERY SPECIALIST Appointment Department of Radiology in [place], [place] [address] [place] [address] Marilin Kaiser M.D. [address] [place] [address] 08/20/2024 9:45 AM RECOVERY SPECIALIST Appointment Department of Radiology in [place] [address] [place] [address] Marilin Kaiser M.D. [address] [place] [address] documented as of this encounter Procedures Procedure [...] vertex to the thighs with low dose, bcd-ukplzrvsqtih-mababurxi CT for attenuation correction and anatomic localization,and [...] findings on the noncontrast low-dose CT: Right yktnoEsoy-K-Qaml tip at the low SVC. Stable 3 [...] (HCC) documented in this encounter Care Teams Loan Teller Relationship Specialty Start Date End Date Elsewhere, Pcp PCP - General Family Medicine 08/31/20 documented as of this encounter
--- OUTSIDE RECORDS SUMMARY | 2024-02-22 01:12 | XMS_ITS | Encounter Summary ---
Author Organization [facility] Address [address] [place] [address] Care Team Providers Care Transfer Station Attendant Name Role Phone Elsewhere, Pcp Primary Care Provider Unavailabl e Reason for Referral * Outpatient (Routine) - Authorized Specialty Diagnoses / Procedures Referred By Javon t Referred To Contact Diagnoses Primary Malignant Neoplasm Of Prostate (HCC) Procedures NM Post Therapy Iris-177 PSMA Monitoring Whole Body with SPECT CT Multiple Marilin Kaiser M.D. [address] [place] [address] [facility] Referral ID Status Reason Start Date Expiration Date V isits Requested Visits Authorized [id number] Authorized 12/27/2023 12/26/2024 8 8 * Outpatient (Routine) - Authorized Specialty Diagnoses / Procedures Referred By Contac t Referred To Contact Diagnoses Primary Malignant Neoplasm Of Prostate (HCC) Procedures NM Therapy Iris-177 PSMA Marilin Kaiser M.D. [address] [place] [address] [facility] Referral ID Status Reason Start Date Expiration Date V isits Requested Visits Authorized [id number] Authorized 12/27/2023 12/26/2024 8 8 * Outpatient (Routine) - Authorized Specialty Diagnoses / Procedures Referred By Contac t Referred To Contact Marilin Kaiser M.D. [address] [place] [address] [facility] Referral ID Status Reason Start Date Expiration Date V isits Requested Visits Authorized [id number] Authorized 12/27/2023 06/27/2025 1 1 * Outpatient (Routine) - Authorized Specialty Diagnoses / Procedures Referred By Contac t Referred To Contact Diagnoses Primary Malignant Neoplasm Of Prostate (HCC) Procedures NM Post Therapy Iris-177 PSMA Monitoring Whole Body with SPECT CT Multiple Marilin Kaiser M.D. [address] [place] [address] [facility] Referral ID Status Reason Start Date Expiration Date V isits Requested Visits Authorized [id number] Authorized 12/27/2023 12/26/2024 8 8 * Outpatient (Routine) - Authorized Specialty Diagnoses / Procedures Referred By Contac t Referred To Contact Diagnoses Primary Malignant Neoplasm Of Prostate (HCC) Procedures NM Therapy Iris-177 PSMA Marilin Kaiser M.D. [address] [place] [address] [facility] Referral ID Status Reason Start Date Expiration Date V isits Requested Visits Authorized [id number] Authorized 12/27/2023 12/26/2024 8 8 * Outpatient (Routine) - Authorized Specialty Diagnoses / Procedures Referred By Contdagoberto t Referred To Contact Marilin Kaiser M.D. [address] [place] [address] [facility] Referral ID Status Reason Start Date Expiration Date V isits Requested Visits Authorized [id number] Authorized 12/27/2023 06/27/2025 1 1 * Outpatient (Routine) - Authorized Specialty Diagnoses / Procedures Referred By Morenitaac t Referred To Contact Diagnoses Primary Malignant Neoplasm Of Prostate (HCC) Procedures NM Post Therapy Iris-177 PSMA Monitoring Whole Body with SPECT CT Multiple Marilin Kaiser M.D. [address] [place] [address] [facility] Referral ID Status Reason Start Date Expiration Date V isits Requested Visits Authorized [id number] Authorized 12/27/2023 12/26/2024 8 8 * Outpatient (Routine) - Authorized Specialty Diagnoses / Procedures Referred By Javon t Referred To Contact Diagnoses Primary Malignant Neoplasm Of Prostate (HCC) Procedures NM Therapy Iris-177 PSMA Marilin Kaiser M.D. [address] [place] [address] [facility] Referral ID Status Reason Start Date Expiration Date V isits Requested Visits Authorized [id number] Authorized 12/27/2023 12/26/2024 8 8 * Outpatient (Routine) - Authorized Specialty Diagnoses / Procedures Referred By Javon t Referred To Contact Marilin Kaiser M.D. [address] [place] [address] [facility] Referral ID Status Reason Start Date Expiration Date V isits Requested Visits Authorized [id number] Authorized 12/27/2023 06/27/2025 1 1 * Outpatient (Routine) - Authorized Specialty Diagnoses / Procedures Referred By Contac t Referred To Contact Diagnoses Primary Malignant Neoplasm Of Prostate (HCC) Procedures NM Post Therapy Iris-177 PSMA Monitoring Whole Body with SPECT CT Multiple Job, Marilin, M.D. [address] [place] [address] [facility] Referral ID Status Reason Start Date Expiration Date V isits Requested Visits Authorized [id number] Authorized 12/27/2023 12/26/2024 8 8 * Outpatient (Routine) - Authorized Specialty Diagnoses / Procedures Referred By Contac t Referred To Contact Diagnoses Primary Malignant Neoplasm Of Prostate (HCC) Procedures NM Therapy Iris-177 PSMA Marilin Kaiser M.D. [address] [place] [address] [facility] Referral ID Status Reason Start Date Expiration Date V isits Requested Visits Authorized [id number] Authorized 12/27/2023 12/26/2024 8 8 * Outpatient (Routine) - Authorized Specialty Diagnoses / Procedures Referred By Contac t Referred To Contact Marilin Kaiser M.D. [address] [place] [address] [facility] Referral ID Status Reason Start Date Expiration Date V isits Requested Visits Authorized [id number] Authorized 12/27/2023 06/27/2025 1 1 * Outpatient (Routine) - Authorized Specialty Diagnoses / Procedures Referred By Contac t Referred To Contact Diagnoses Primary Malignant Neoplasm Of Prostate (HCC) Procedures NM Post Therapy Iris-177 PSMA Monitoring Whole Body with SPECT CT Marilin Bland M.D. [address] [place] [address] [facility] Referral ID Status Reason Start Date Expiration Date V isits Requested Visits Authorized [id number] Authorized 12/27/2023 12/26/2024 8 8 * Outpatient (Routine) - Authorized Specialty Diagnoses / Procedures Referred By Morenitaac t Referred To Contact Diagnoses Primary Malignant Neoplasm Of Prostate (HCC) Procedures NM Therapy Iris-177 PSMA Marilin Kiaser M.D. [address] [place] [address] [facility] Referral ID Status Reason Start Date Expiration Date V isits Requested Visits Authorized [id number] Authorized 12/27/2023 12/26/2024 8 8 * Outpatient (Routine) - Authorized Specialty Diagnoses / Procedures Referred By Javon t Referred To Contact Marilin Kaiser M.D. [address] [place] [address] [facility] Referral ID Status Reason Start Date Expiration Date V isits Requested Visits Authorized [id number] Authorized 12/27/2023 06/27/2025 1 1 * Outpatient (Routine) - Authorized Specialty Diagnoses / Procedures Referred By Javon t Referred To Contact Diagnoses Primary Malignant Neoplasm Of Prostate (HCC) Procedures NM Post Therapy Iris-177 PSMA Monitoring Whole Body with SPECT CT Multiple Marilin Kaiser M.D. [address] [place] [address] [facility] Referral ID Status Reason Start Date Expiration Date V isits Requested Visits Authorized [id number] Authorized 12/27/2023 12/26/2024 8 8 * Outpatient (Routine) - Authorized Specialty Diagnoses / Procedures Referred By Contac t Referred To Contact Diagnoses Primary Malignant Neoplasm Of Prostate (HCC) Procedures NM Therapy Iris-177 PSMA Marilin Kaiser M.D. [address] [place] [address] [facility] Referral ID Status Reason Start Date Expiration Date V isits Requested Visits Authorized [id number] Authorized 12/27/2023 12/26/2024 8 8 * Outpatient (Routine) - Pending Review Specialty Diagnoses / Procedures Referred By Javon lopez Referred To Contact Radiology Diagnoses Primary Malignant Neoplasm Of Prostate (HCC) Marilin Kaiser M.D. [address] [place] [address] [facility] Referral ID Status Reason Start Date Expiration Date V isits Requested Visits Authorized [id number] Pending Review 12/27/2023 06/27/2025 1 1 Encounter Details Date Type Department Care Team (Late st Contact Info) Description 12/27/2023 Orders Only Department of Oncology in [place], [place] [address] [place] [address] Renetta Tan R.N. [address], [place] [address] Primary Malignant Neoplasm Of Prostate (HCC) (Primary [...] How often do you attend chur or spiritism services? Never 12/21/2021 Do you belong to any clubs o r organizations such as catholic groups, unions, fraternal or athletic groups, or [...] and heating? Not hard at all 01/24/2023 [facility] of Occupat ional Health - Occupational Stress [...] your living situation today? I have a [facility] place to live 01/24/2023 Education Answer Date Recorded What is the highest level of school you have completed or the highest degree you have received? Master's degree (e.g., MA, MS, Gail, MEd, PLASTICS SEASONER OPERATOR, JAMIE) 12/21/2021 Sex and Gender Information Value Date Recorded Sex Assigned at Male 12/21/2021 7:22 AM CDT Gender Identity Male 12/21/2021 7:22 AM CDT Sexual Orientation Straight 12/21/2021 7: 22 AM CDT documented as of this encounter Plan of Treatment Upcoming Encounters Date Type Department Care Team (Late st Contact Info) Description 03/04/2024 1:15 PM CDT Appointment Department of Radiology in [place], [place] [address] [place] [address] Marilin Kaiser M.D. [address] [place] [phone] 03/04/2024 1:30 PM CDT Appointment Department of Radiology in [address] [address] Marilin Kaiser M.D. [address] [place] [address] 03/05/2024 9:15 AM CDT Appointment Department of Radiology in [address] [address] Marilin Kaiser M.D. [address] [place] [address] 04/15/2024 1:15 PM CDT Appointment Department of Radiology in [address] [address] Marilin Kaiser M.D. [address] [place] [address] 04/15/2024 1:30 PM CDT Appointment Department of Radiology in [address] [address] Marilin Kaiser M.D. [address] [place] [address] 04/16/2024 9:15 AM CDT Appointment Department of Radiology in [address] [address] Marilin Kaiser M.D. [address] [place] [address] 05/27/2024 12:45 PM CDT Appointment Department of Radiology in [address] [address] Marilin Kaiser M.D. [address] [place] [address] 05/27/2024 1:00 PM CDT Appointment Department of Radiology in [place] [address] [place] [address] Marilin Kaiser M.D. [address] [place] [address] 05/28/2024 9:15 AM CDT Appointment Department of Radiology in [address] [address] Marilin Kaiser M.D. [address] [place] [address] 07/08/2024 1:15 PM LEATHER WHITENER Appointment Department of Radiology in [address] [address] Marilin Kaiser M.D. [address] [place] [address] 07/08/2024 1:30 PM LEATHER WHITENER Appointment Department of Radiology in [address] [address] Marilin Kaiser M.D. [address] [place] [address] 07/09/2024 9:45 AM LEATHER WHITENER Appointment Department of Radiology in [address] [address] Marilin Kaiser M.D. [address] [place] [address] 08/19/2024 12:45 PM LEATHER WHITENER Appointment Department of Radiology in [place], [place] [address] [place] [address] Marilin Kaiser M.D. [address] [place] [address] 08/19/2024 1:00 PM LEATHER WHITENER Appointment Department of Radiology in [place], [place] [address] [place] [address] Marilin Kaiser M.D. [address] [place] [address] 08/20/2024 9:45 AM LEATHER WHITENER Appointment Department of Radiology in [place] [address] [place] [address] Marilin Kaiser M.D. [address] [place] [address] Scheduled Orders Name Type Priority Associated Diagnoses [...] vertex to the thighs with low dose, wlu-nkdezsouyckm-uzmjnqikw CT for attenuation correction and anatomic localization,and [...] findings on the noncontrast low-dose CT: Right anezdBvoj-V-Sowv tip at the low SVC. Stable 3 [...] PSMA expression score: 3 Marilin Kaiser M.D. [facility] NM PROCEDURES * NM [...] (HCC) documented in this encounter Care Teams Transfer Station Attendant Relationship Specialty Start Date End Date Elsewhere, Pcp PCP - General Family Medicine 08/31/20 documented as of this encounter
--- OUTSIDE RECORDS SUMMARY | 2024-02-22 01:12 | XMS_ITS | Encounter Summary ---
Author Organization [facility] Address [address] [place] [address] Care Team Providers Care Mica Spreader Name Role Phone Elsewhere, Pcp Primary Care Provider Unavailabl e Reason for Referral * Outpatient (Routine) - Pending Review Specialty Diagnoses / Procedures Referred By Morenitaac t Referred To Contact Radiology Diagnoses Primary Malignant Neoplasm Of Prostate (HCC) Marilin Kaiser M.D. [address] [place] [address] [facility] Referral ID Status Reason Start Date Expiration Date V isits Requested Visits Authorized [id number] Pending Review 12/27/2023 06/27/2025 1 1 Reason for Visit * Outpatient (Routine) - Pending Review Specialty Diagnoses / Procedures Referred By Javon lopez Referred To Contact Radiology Diagnoses Primary Malignant Neoplasm Of Prostate (HCC) Marilin Kaiser M.D. [address] [place] [address] [facility] Referral ID Status Reason Start Date Expiration Date V isits Requested Visits Authorized [id number] Pending Review 12/27/2023 06/27/2025 1 1 Encounter Details Date Type Department Care Team (Latest Contact Info) Description 01/22/2024 11:46 AM CDT - 01/22/2024 2:02 PM CDT Hospital Encounter Department of Radiology in [place], [place] [address] [place] [address] Marilin Kaiser M.D. [address] [place] [phone] Miguelito Booth P.A.-C. [address] [place] [address] Primary Malignant Neoplasm Of Prostate (HCC) Social [...] often do you attend chur ch or samaritan services? Never 12/21/2021 Do you belong to [...] and heating? Not hard at all 01/24/2023 [facility] - [...] Master's degree (e.g., MA, MS, Gail, MEd, EXECUTIVE TEAM LEADER, JAMIE) 12/21/2021 Sex and Gender Information Value [...] CDT SUBJECTIVE REFERRING PROVIDER Marilin Kaiser M.D. [facility] [address] NUCLEAR MEDICINE PROVIDER Miguelito Booth P.A.-C. Ismael [...] Patient follows with a Dr. Rodrigues at [facility]. His next follow up appointment is [...] the care of Dr. Rachael Sanford at [facility] in [place], [place]. 01/2011 - Biological/Targeted/Hormone Therapy Lupron 30 [...] and Procedures Cryotherapy with Dr. Yu at [facility]. The patient underwent placement of 13 [...] 11/30/2021 Critical Imaging PSMA PET scan at [facility] demonstrated radiotracer positive lesion in the prostate [...] PROSTATE, RIGHT, NEEDLE BIOPSY: 1. Prostatic adenocarcinoma, [employer] score 4 + 5 = 9 (ISUP [...] Common Hereditary Cancers Panel (47 genes) via [employer]. See test report fordetails regarding genes analyzed and testing methodologies. RESULT: NEGATIVE FOR CLINICALLY ACTIONABLE VARIANTS No clinically actionable (pathogenic or likely pathogenic) variants were detected in the genes analyzed. One variant of uncertain significance was detected: POLE c.2134C>G ([id number]). No laboratory classifies this variant as clinically-actionable [...] Pluvicto therapy today. Labs were done at [facility] and the results are located [...] Patient follows with a Dr. Rodrigues at [facility]. His next follow up appointment is [...] practitioners/physician assistants, nurses and other product support engineer that specialize in this treatment. Also, reviewed the importance of maintaining ongoing care with [place] and local oncology team, as well as [...] PM CDT Appointment Department of Radiology in [place], [place] [address] [place] [address] Marilin Kaiser M.D. [address] [place] [address] 03/04/2024 1:30 PM CDT Appointment Department of Radiology in [address] [address] Marilin Kaiser M.D. [address] [place] [address] 03/05/2024 9:15 AM CDT Appointment Department of Radiology in [address] [address] Marilin Kaiser M.D. [address] [place] [address] 04/15/2024 1:15 PM CDT Appointment Department of Radiology in [address] [address] Marilin Kaiser M.D. [address] [place] [address] 04/15/2024 1:30 PM CDT Appointment Department of Radiology in [address] [address] Marilin Kaiser M.D. [address] [place] [address] 04/16/2024 9:15 AM CDT Appointment Department of Radiology in [place], [place] [address] [place] [address] Marilin Kaiser M.D. [address] [place] [address] 05/27/2024 12:45 PM CDT Appointment Department of Radiology in [address] [address] Marilin Kaiser M.D. [address] [place] [address] 05/27/2024 1:00 PM CDT Appointment Department of Radiology in [address] [address] Marilin Kaiser M.D. [address] [place] [address] 05/28/2024 9:15 AM CDT Appointment Department of Radiology in [address] [address] Marilin Kaiser M.D. [address] [place] [address] 07/08/2024 1:15 PM TRAVEL SALES CONSULTANT Appointment Department of Radiology in [address] [address] Marilin Kaiser M.D. [address] [place] [address] 07/08/2024 1:30 PM TRAVEL SALES CONSULTANT Appointment Department of Radiology in [address] [address] Marilin Kaiser M.D. [address] [place] [address] 07/09/2024 9:45 AM TRAVEL SALES CONSULTANT Appointment Department of Radiology in [place], [place] [address] [place] [address] Marilin Kaiser M.D. [address] [place] [address] 08/19/2024 12:45 PM TRAVEL SALES CONSULTANT Appointment Department of Radiology in [address] [address] Marilin Kaiser M.D. [address] [place] [address] 08/19/2024 1:00 PM TRAVEL SALES CONSULTANT Appointment Department of Radiology in [address] [address] Marilin Kaiser M.D. [address] [place] [address] 08/20/2024 9:45 AM TRAVEL SALES CONSULTANT Appointment Department of Radiology in [address] [address] Marilin Kaiser M.D. [address] [place] [address] Scheduled Referrals Name Type Priority Associated Diagnoses Order Schedule Radiology - Nuclear medicine consult (clinic) Outpatient Referral Routine Primary Malignant Neoplasm Of Prostate (HCC) Once for 1 Occurrences starting 01/22/2024 until 01/22/2024 documented as of this encounter Visit Diagnoses Diagnosis Primary Malignant Neoplasm Of Prostate (HCC) documented in this encounter Care Teams Mica Spreader Relationship Specialty Start Date End Date Elsewhere, Pcp PCP - General Family Medicine 08/31/20 documented as of this encounter
--- OUTSIDE RECORDS SUMMARY | 2024-02-22 01:12 | XMS_ITS | Encounter Summary ---
Author Organization [facility] Address [address] [place] [address] Care Team Providers Care Ocean Lifeguard Specialist Name Role Phone Elsewhere, Pcp Primary Care Provider Unavailabl e Encounter Details Date Type Department Care Team (Late st Contact Info) Description 12/26/2023 Orders Only Department of Oncology in [place], [place] [address] [address] Renetta Tan R.N. [address] [phone] Secondary Malignant Neoplasm Bone (HCC) (Primary Dx); [...] any clubs o r organizations such as yazdanism groups, unions, fraternal or athletic groups, or [...] Not hard at all 01/24/2023 [facility] - Occupational Stress [...] your living situation today? I have a [facility] place to live 01/24/2023 Education Answer Date Recorded What is the highest level of school you have completed or the highest degree you have received? 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 [address] [place] [phone] 03/04/2024 1:30 PM CDT Appointment Department of Radiology in [place], [place] [address] [place] [address] Marilin Kaiser M.D. [address] [place] [address] 03/05/2024 9:15 AM CDT Appointment Department of Radiology in [place], [place] [address] [place] [address] Marilin Kaiser M.D. [address] [place] [address] 04/15/2024 1:15 PM CDT Appointment Department of Radiology in [address] [address] Marilin Kaiser M.D. [address] [place] [address] 04/15/2024 1:30 PM CDT Appointment Department of Radiology in [address] [address] Marilin Kaiser M.D. [address] [place] [address] 04/16/2024 9:15 AM CDT Appointment Department of Radiology in [address] [address] Marilin Kaiser M.D. [address] [place] [address] 05/27/2024 12:45 PM CDT Appointment Department of Radiology in [address] [address] Marilin Kaiser M.D. [address] [place] [address] 05/27/2024 1:00 PM CDT Appointment Department of Radiology in [address] [address] Marilin Kaiser M.D. [address] [place] [address] 05/28/2024 9:15 AM CDT Appointment Department of Radiology in [address] [address] Marilin Kaiser M.D. [address] [place] [address] 07/08/2024 1:15 PM HUMAN RESOURCES GENERALIST Appointment Department of Radiology in [address] [address] Marilin Kaiser M.D. [address] [place] [address] 07/08/2024 1:30 PM HUMAN RESOURCES GENERALIST Appointment Department of Radiology in [address] [address] Marilin Kaiser M.D. [address] [place] [address] 07/09/2024 9:45 AM HUMAN RESOURCES GENERALIST Appointment Department of Radiology in [address] [address] Marilin Kaiser M.D. [address] [place] [address] 08/19/2024 12:45 PM HUMAN RESOURCES GENERALIST Appointment Department of Radiology in [address] [address] Marilin Kaiser M.D. [address] [place] [address] 08/19/2024 1:00 PM HUMAN RESOURCES GENERALIST Appointment Department of Radiology in [place], [place] [address] [place] [address] Marilin Kaiser M.D. [address] [place] [address] 08/20/2024 9:45 AM HUMAN RESOURCES GENERALIST Appointment Department of Radiology in [place] [address] [place] [address] Marilin Kaiser M.D. [address] [place] [address] documented as of this encounter Visit Diagnoses Diagnosis Secondary Malignant Neoplasm Bone (HCC)- Primary Primary Malignant Neoplasm Of Prostate (HCC) documented in this encounter Care Teams Ocean Lifeguard Specialist Relationship Specialty Start Date End Date Elsewhere, Pcp PCP - General Family Medicine 08/31/20 documented as of this encounter
--- OUTSIDE RECORDS SUMMARY | 2024-02-22 01:13 | XMS_ITS | Data Portability ---
Author Organization [facility], [facility] Address [address] [place] [address] Care Team Providers Care Teacher Of The Sight Impaired Name Role Phone BRADY WATERS Primary Care [...] PSA, serum or plasma 2022 023 [email or web address] [facility], [address], [place], [address], 10/16/2022 09:54:18 urinalysi s, dipstick 2022 023 [facility], [address], [place], [address], 11/28/2022 10:45:27 urinalysi s, dipstick 2023 024 [facility], [address], [place], [address], 09/02/2023 14:46:28 urinalysi s, dipstick 2023 024 [facility], [address], [place], [address], 11/04/2023 14:27:12 culture, urine 2023 024 [facility], [address], [address], [place], [address], 11/05/2023 10:11:07 Referral None recorded. Procedures None [...] 50 mg tablet,ex tended release 2022 023 [facility], [address] [place] [address], [address], 09/02/2023 14:26:08 Cipro 500 mg tablet 2022 023 [facility], [facility] [place], [address], 09/02/2023 14:25:04 Eligard 45 mg (6 month) subcutane ous syringe 2022 023 [email or web address] 0 [facility], [address] [place] [address], [address], 01/23/2023 12:48:05 Patient TargetsNo targets recorded. Patient InstructionsNo instructions recorded. Reason for Referral None Reported. Results Created Date Observation Date Name Description Value Unit Range Abnormal Flag LastModifiedBy Organization Detail LastModifiedTime 11/29/19 23 11/28/2022 urina lysis , dipst ick Color-Status Yellow Not Available [facility] [address], [place], [address], 11/28/2022 10:30:30 11/29/19 23 11/28/2022 urina lysis , dipst ick pH-Status 7.5 Not Available [facility] [address], [place], [address], 11/28/2022 10:30:30 11/29/19 23 11/28/2022 urina lysis , dipst ick Blood-Status Large Not Available [facility] [address], [place], [address], 11/28/2022 10:30:30 11/29/19 23 11/28/2022 urina lysis , dipst ick Leuko-Status Trace Not Available [facility] [address], [place], [address], 11/28/2022 10:30:30 09/02/19 24 09/02/2023 urina lysis , dipst ick Color-Status Yellow Not Available [facility] [address], [place], [address], 09/02/2023 14:28:46 09/02/19 24 09/02/2023 urina lysis , dipst ick Clarity-Stat us Clear Not Available [facility] [address], [place], [address], 09/02/2023 14:28:46 09/02/19 24 09/02/2023 urina lysis , dipst ick Sp Savannah-Stat us 1.020 Not Available [facility] [address], [place], [address], 09/02/2023 14:28:46 09/02/19 24 09/02/2023 urina lysis , dipst ick pH-Status 7.0 Not Available [facility] [address], [place], [address], 09/02/2023 14:28:46 09/02/19 24 09/02/2023 urina lysis , dipst ick Nitrates-Sta tus negati ve Not Available [facility] [address], [place], [address], 09/02/2023 14:28:46 09/02/19 24 09/02/2023 urina lysis , dipst ick Blood-Status Modera te Not Available [facility] [address], [place], [address], 09/02/2023 14:28:46 09/02/19 24 09/02/2023 urina lysis , dipst ick Leuko-Status Trace Not Available [facility] [address], [place], [address], 09/02/2023 14:28:46 09/02/19 24 09/02/2023 urina lysis , dipst ick Specimen Type Voided Not Available [facility] [address], [place], [address], 09/02/2023 14:28:46 09/02/19 24 09/02/2023 urina lysis , dipst ick Performed by Carlos jenkins RN Not Available [facility] [address], [place], [address], 09/02/2023 14:28:46 11/04/19 24 11/04/2023 URINE CULTU RE final report MICROB IOLOGY RESULT S Not Available [facility] [address], [place], [address], 11/05/2023 10:11:06 11/04/19 24 11/04/2023 urina lysis , dipst ick Color-Status Yellow Not Available [facility] [address], [place], [address], 11/04/2023 14:02:20 11/04/19 24 11/04/2023 urina lysis , dipst ick Clarity-Stat us Clear Not Available [facility] [address], [place], [address], 11/04/2023 14:02:20 11/04/19 24 11/04/2023 urina lysis , dipst ick Sp Savannah-Stat us 1.020 Not Available [facility] [address], [place], [address], 11/04/2023 14:02:20 11/04/19 24 11/04/2023 urina lysis , dipst ick pH-Status 7.0 Not Available [facility] [address], [place], [address], 11/04/2023 14:02:20 11/04/19 24 11/04/2023 urina lysis , dipst ick Protein-Stat us >=9.0 Not Available [facility] [address], [place], [address], 11/04/2023 14:02:20 11/04/19 24 11/04/2023 urina lysis , dipst ick Urobilinogen -Status 0.2 Not Available [facility] [address], [place], [address], 11/04/2023 14:02:20 11/04/19 24 11/04/2023 urina lysis , dipst ick Nitrates-Sta tus negati ve Not Available [facility] [address], [place], [address], 11/04/2023 14:02:20 11/04/19 24 11/04/2023 urina lysis , dipst ick Blood-Status Modera te Not Available [facility] [address], [place], [address], 11/04/2023 14:02:20 11/04/19 24 11/04/2023 urina lysis , dipst ick Leuko-Status Trace Not Available [facility] [address], [place], [address], 11/04/2023 14:02:20 11/04/19 24 11/04/2023 urina lysis , dipst ick Specimen Type Voided Not Available [facility] [address], [place], [address], 11/04/2023 14:02:20 11/04/19 24 11/04/2023 urina lysis , dipst ick Performed by haja RN Not Available [facility] [address], [place], [address], 11/04/2023 14:02:20 10/11/19 23 09/17/2022 CT, urogr am No observ ation record ed. [email or web address] [facility] [address], [place], [address], 10/10/2022 16:57:24 11/30/19 23 11/28/2022 bladd er scan (PROC ) No observ ation record ed. BARCODE Not Available 11/29/2022 09:07:29 01/18/20 23 01/10/2023 PET-C T, skull base to mid-t high scan No observ ation record ed. [email or web address] Not Available 01/17/2023 15:31:54 Result Notes None recorded. Procedures Surgical History Date Name Laterality Status Provider Name and Address Organization Details Recorded Time 4 Urinalysis completed Marc kang [facility] 11/04/2023 14:02:05 4 Bladder Scan completed Severino Rodriuges MD [address] [place] [address],[address], [place], [address], [facility] 11/04/2023 14:13:12 4 Urinalysis completed Severino Rodrigues MD [address] [place] [address],[address], [place], [address], [facility] 09/02/2023 14:26:49 4 Bladder Scan completed Severino Rodrigues MD [address] [place] [address],[address], [place], [address], [place] [facility] 09/02/2023 14:26:41 3 Bladder Scan completed Severino Rodrigues MD [address] [place] [address],[address], [place], [address], [facility] 01/23/2023 11:45:38 3 [facility] 12:47:33 3 Bladder Scan completed Severino Rodrigues MD [address] [place] [address],[address], [place], [address], [facility] 11/28/2022 10:30:26 3 CYSTOURETHROSCO PY, WITH CALIBRATION AND/OR DILATION OF URETHRAL STRICTURE OR STENOSIS (SURG) [facility] 11/15/2022 11:26:31 3 Cystoscopy- male completed Severino Rodrigues MD [address] [place] [address],[address], [place], [address], [facility] 10/15/2022 22:46:40 2 JAPANESE TUTOR/blood draw completed Severino Rodrigues MD [address] [place] [address],[address], [place], [address], [facility] 05/02/2022 16:17:09 9 colonoscopy completed Severino Rodrigues MD [address] [place] [address],[address], [address], [facility] 07/23/2022 11:34:54 Imaging Results Imaging Date Name Status LastModified by Organiz [facility] Details LastModified Time 09/17/2022 CT, urogram completed [email or web address] [facility] [address] [place], [address], 10/10/2022 16:57:24 11/28/2022 bladder scan (PROC) completed BARCODE Information not available 11/29/2022 09:07:29 01/10/2023 PET-CT, skull base to mid-thigh scan completed [email or web address] Information not available 01/17/2023 15:31:54 Procedure Notes None recorded. Medical Equipment None Reported. Allergies Allergen ID Allergen Name Allergen Category Reaction Reaction Severity Criticality Documentation Date Start Date Code Code System Note Provider Name and Address Organization Details Recorded Time 971609 allopurin ol medicatio n Not available Not available Not available 01/21/20202018 519 RxNorm Not Available [facility] 0 00:42:15 Medications Name Sig Start [...] Updated DateTime 10/15/2022 185.42 cm 28.8 kg/m2 91484.14 farhana Rodrigues MD [address] [place] [address],[address], [address] [place] [address], [facility] 10/15/2022 14:42:13 Date Recorded Body height Body mass index (BMI) Body weight Provider Name and Address Organization Details Last Updated DateTime 11/28/2022 185.42 cm 28.8 kg/m2 28376.14 g Ro Benton [facility] 11/28/2022 10:26:34 Date Recorded Body height Body mass index (BMI) Body weight Provider Name and Address Organization Details Last Updated DateTime 01/23/2023 185.42 cm 28.8 kg/m2 18000.14 farhana Rodrigues MD [address] [place] [address],[address] 01/23/2023 11:42:10 Date Recorded Body height Provider Name an d Address Organization Details Last Updated DateTime 09/02/2023 185.42 cm Severino Rodrigues MD [address] [place] [address],[address] 09/02/2023 14:24:14 Date Recorded Body height Body mass index (BMI) Body weight Provider Name and Address Organization Details Last Updated DateTime 11/04/2023 185.42 cm 27.7 kg/m2 97100.4 farhana Rodrigues MD [address] [place] [address],[address] [facility] 11/04/2023 14:09:38 Social History Question Answer Notes LastModified by Organizat ion Details LastModified Time Tobacco Smoking Status Former Smoker Severino Rodrigues MD [address] [place] [address],[address], [address] [place] [address], [facility] 05/02/2022 16:16:26 What Is Your Level [...] trivalent, PF 04/14/2018 completed Severino Rodrigues MD [address] [place] [address],[address], [address], [facility] 09/02/2023 14:24:21 Influenza, adjuvanted, trivalent, PF 05/13/2017 completed Severino Rodrigues MD [address] [place] [address],[address], [address], [facility] 09/02/2023 14:24:21 Influenza, adjuvanted, trivalent, PF 06/03/2019 completed Severino Rodrigues MD [address] [place] [address],[address], [address], [facility] 09/02/2023 14:24:21 zoster recombinant 01/04/2021 lg kelly MD [address] [place] [address],[address], [address], [facility] 09/02/2023 14:24:21 zoster recombinant 03/08/2021 completed Severino kelly MD [address] [place] [address],[address], [address], [facility] 09/02/2023 14:24:21 Influenza, high-dose, quadrivalent, PF 05/11/2020 completed Severino Rodrigues MD [address] [place] [address],[address], [address], [facility] 09/02/2023 14:24:21 Influenza, high-dose, quadrivalent, PF 05/24/2021 completed Severino Rodrigues MD [address] [place] [address],[address], [place], [address], [facility] 09/02/2023 14:24:21 Influenza, adjuvanted, quadrivalent, PF 04/13/2022 completed Severino Rodrigues MD [address] [place] [address],[address], [place], [address], [facility] 09/02/2023 14:24:21 COVID-19, mRNA, LNP-S, PF, 30 mcg/0.3 mL dose 08/31/2020 completed Severino Rodrigues MD [address] [place] [address],[address], [place], [address], [facility] 09/02/2023 14:24:21 COVID-19, mRNA, LNP-S, PF, 30 mcg/0.3 mL dose 09/21/2020 completed Severino Rodrigues MD [address] [place] [address],[address], [place], [address], [facility] 09/02/2023 14:24:21 COVID-19, mRNA, LNP-S, PF, 30 mcg/0.3 mL dose 05/24/2021 completed Severino Rodrigues MD [address] [place] [address],[address], [place], [address], [facility] 09/02/2023 14:24:21 COVID-19, mRNA, LNP-S, PF, 30 mcg/0.3 mL dose, dave-sucrose 10/30/2021 completed Severino Rodrigues MD [address] [place] [address],[address], [place], [address], [facility] 09/02/2023 14:24:21 COVID-19, mRNA, LNP-S, bivalent, PF, 50 mcg/0.5 mL or 25mcg/0.25 mL dose 05/21/2022 completed Severino Rodrigues MD [address] [place] [address],[address], [place], [address], [facility] 09/02/2023 14:24:21 influenza, unspecified formulation 05/24/2008 completed Severino Rodrigues MD [address] [place] [address],[address] [place] [address], [address], [facility] 09/02/2023 14:24:21 Tdap 10/03/2005 completed Severino Rodrigues MD [address] [place] [address],[address] [place] [address], [address], [facility] 09/02/2023 14:24:21 Tdap 05/13/2017 completed Severino Rodrigues MD [address] [place] [address],[address], [address], [facility] 09/02/2023 14:24:21 Influenza, high-dose, trivalent, PF 08/08/2016 completed Severino Rodrigues MD [address] [place] [address],[address] [place] [address], [address], [facility] 09/02/2023 14:24:21 Influenza, high-dose, trivalent, PF 06/14/2014 completed Severino Rodrigues MD [address] [place] [address],[address], [address], [facility] 09/02/2023 14:24:21 pneumococcal polysaccharide PPV23 04/14/2018 completed Severino Rodrigues MD [address] [place] [address],[address], [address], [facility] 10/15/2022 14:42:46 Pneumococcal conjugate PCV 13 05/02/2015 completed Severino Rodrigues MD [address] [place] [address], [address], [facility] 10/15/2022 14:42:46 Past Encounters Encounter ID Performer Location Encounter Start Date Encounter Closed Date Diagnosis/Indication Diagnosis SNOMED-CT Code [id number] MD BAILEE Lee_Dilma [address] [place] [address] 05/02/2022 16:02:47 05/07/2022 10:01:50 Carcinoma of prostate 311926711 Lower urin maria de jesus tract symptoms due to benign prostatic hypertrophy 90230317841645 Increased frequency of urination 773810605 [id number] MD Monico Lee [address] [place] [address] 07/23/2022 11:22:14 07/27/2022 09:43:06 Carcinoma of prostate 221073168 Lower urin maria de jesus tract symptoms due to benign prostatic hypertrophy 53253612128657 Increased frequency of urination 391746279 [id number] MD BAILEE Lee_Edingavin [address] [place] [address] 10/15/2022 14:28:15 10/19/2022 12:05:16 Carcinoma of prostate 172217089 Lower urin maria de jesus tract symptoms due to benign prostatic hypertrophy 71575157651052 Increased frequency of urination 063252142 Urethral stricture 39456 002 Leonidas hematuria 89884862 5 [id number] MD BAILEE Lee_Dilma [address] [place] [address] 11/28/2022 10:16:48 11/30/2022 11:21:06 Carcinoma of prostate 075110303 Lower urin maria de jesus tract symptoms due to benign prostatic hypertrophy [id number] Leonidas hematuria 98207834 5 Increased frequency of urination 774721462 Urethral stricture 36939 002 [id number] MD BAILEE Lee_Dilma [address] [place] [address] 01/23/2023 11:17:58 01/31/2023 09:40:24 Urethral stricture 39578567 Carcinoma of prostate 25 8972249 Lower urin maria de jesus tract symptoms due to benign prostatic hypertrophy 93889235409989 Increased frequency of urination 007116214 Leonidas hematuria 47354046 5 [id number] MD BAILEE Lee_Dilma [address] [place] [address] 09/02/2023 14:10:29 09/03/2023 11:47:06 Carcinoma of prostate 416745358 Urethral stricture 03395 002 Lower urin maria de jesus tract symptoms due to benign prostatic hypertrophy 75031675316053 Increased frequency of urination 031298747 Leonidas hematuria 73229686 5 Hydronephrosis 32807318 [id number] MD Monico Lee [address] [place] [address] 11/04/2023 13:47:57 11/05/2023 10:03:04 Carcinoma of prostate 471149984 Hydronephrosis 32296304 Urethral stricture 14882 002 Lower urin maria de jesus tract symptoms due to benign prostatic hypertrophy 78598190100804 Increased frequency of urination 482187680 Leonidas hematuria 90760554 5 Health Concerns Section Related Observation LastModified by Organization Detai ls LastModified Time None Recorded Concern Status LastModified by Organization Details LastModified Time None Recorded Advance Directives Directive None Recorded Payers Encounter Date Sequence Insurance Name Policy Number Policy Simon Covered Member ID Simon Member ID Guarantor Name 10/15/2022 1 [place] [id number] Solis Thibodeaux [id number] Solis Galoman 11/28/2022 1 [place] [id number] Solis Thibodeaux [id number] Solis Ann Thibodeaux 01/23/2023 1 [place]ST [id number] Solis Thibodeaux [id number] Solis Ann Thibodeaux 09/02/2023 1 [place] COST [id number] Solis Thibodeaux [id number] Solis Galoman 11/04/2023 1 [place] COST [id number] Solis Galoman [id number] Solis Ann Eastman Notes Date Note Type Note Provider Name and Address Organization Details Recorded Time 10/15/2022 text/html HPI Notes: 77 yo male dx with prostate cancer (T1c - [place] 3+4 = 7 - bilateral) on 11/28/10 [...] 14 (08/21/18) PSMA PET scan (11/30/2021) at [facility] - enhancing lesion in the prostate [...] cm) cyst (lower pole) Severino Rodrigues MD [address] [place] [address],[address], [place], [address], [facility] 10/15/2022 22:54:50 11/28/2022 text/html HPI Notes: [...] 14 (08/21/18) PSMA PET scan (11/30/2021) at [facility] - enhancing lesion in the prostate [...] cyst (lower pole) Severino Rodrigues MD [address], [place], [address], [facility] 11/28/2022 10:50:54 01/23/2023 text/html HPI Notes: [...] 14 (08/21/18) PSMA PET scan (11/30/2021) at [facility] - enhancing lesion in the prostate [...] lymph nodes seen Severino Rodrigues MD [address] [facility],[address], [place], [address], [place] [facility] 01/27/2023 19:22:51 09/02/2023 text/html HPI Notes: 77 yo male dx with prostate cancer (T1c - [place] 3+4 = 7 - bilateral) on 11/28/10 [...] of prostate (02/01/23) Pathology - Left - [place] 5+5=10 - 6/6 cores (40%) - + perineural invasion - Right - [place] 4+5=9 - 6/6 cores (20%) - + [...] 14 (08/21/18) PSMA PET scan (11/30/2021) at [facility] - enhancing lesion in the prostate [...] lymph nodes seen Severino Rodrigues MD [address] [facility],[address], [place], [address], [facility] 09/02/2023 19:32:47 11/04/2023 text/html HPI Notes: 78 yo male dx with prostate cancer (T1c - [place] 3+4 = 7 - bilateral) on 11/28/10 [...] of prostate (02/01/23) Pathology - Left - [place] 5+5=10 - 6/6 cores (40%) - + [...] 14 (08/21/18) PSMA PET scan (11/30/2021) at [facility] - enhancing lesion in the prostate [...] active lymph nodes seen Severino Rodrigues MD [address] [facility],[address], [place], [address], [place] [facility] 11/04/2023 22:17:07
--- OUTSIDE RECORDS SUMMARY | 2024-02-22 01:13 | XMS_ITS | Encounter Summary ---
Author Organization [facility] Address [address] [place] [address] Care Team Providers Care Hide And Skin Classer Name Role Phone Elsewhere, Pcp Primary Care Provider Unavailabl e Reason for Referral * MRI/CAT/PET Scan (Routine) - Closed Specialty Diagnoses / Procedures Referred By Javon lopez Referred To Contact Diagnoses Primary Malignant Neoplasm Of Prostate (HCC) Procedures PET CT Skull to Thigh PSMA Marilin Kaiser M.D. [address] [place] [address] [facility] Referral ID Status Reason Start Date Expiration Date Visits Re quested Visits Authorized [id number] Closed 12/18/2023 12/17/2024 1 1 Reason for Visit * MRI/CAT/PET Scan (Routine) - Closed Specialty Diagnoses / Procedures Referred By Javon lopez Referred To Contact Diagnoses Primary Malignant Neoplasm Of Prostate (HCC) Procedures PET CT Skull to Thigh PSMA Marilin Kaiser M.D. [address] [place] [address] [facility] Region Referral ID Status Reason Start Date Expiration Date Visits Re quested Visits Authorized [id number] Closed 12/18/2023 12/17/2024 1 1 Encounter Details Date Type Department Care Team (Latest Contact Info) Description 12/24/2023 10:33 AM CDT - 12/24/2023 11:59 PM CDT Hospital Encounter Department of Radiology in [place], [place] [address] [place] [address] Marilin Kaiser M.D. [address] [place] [address] Primary Malignant Neoplasm Of Prostate [...] often do you attend chur ch or yazidi services? Never 12/21/2021 Do you belong to any clubs o r organizations such as holiness groups, unions, fraternal or athletic groups, or [...] and heating? Not hard at all 01/24/2023 [facility] Ramona of Occupat ional Health - Occupational Stress [...] your living situation today? I have a [facility] place to live 01/24/2023 Education Answer Date Recorded What is the highest level of school you have completed or the highest degree you have received? Master's degree (e.g., LETTY, MS, Gail, MEd, BULLDOGGER, JAMIE) 12/21/2021 Sex and Gender Information Value [...] PM CDT Appointment Department of Radiology in [place], [place] [address] [place] [address] Marilin Kaiser M.D. [address] [place] [address] 03/04/2024 1:30 PM CDT Appointment Department of Radiology in [place], [place] [address] [place] [address] Marilin Kaiser M.D. [address] [place] [address] 03/05/2024 9:15 AM CDT Appointment Department of Radiology in [address] [address] Marilin Kaiser M.D. [address] [place] [address] 04/15/2024 1:15 PM CDT Appointment Department of Radiology in [address] [address] Marilin Kaiser M.D. [address] [place] [address] 04/15/2024 1:30 PM CDT Appointment Department of Radiology in [address] [address] Marilin Kaiser M.D. [address] [place] [address] 04/16/2024 9:15 AM CDT Appointment Department of Radiology in [address] [address] Marilin Kaiser M.D. [address] [place] [address] 05/27/2024 12:45 PM CDT Appointment Department of Radiology in [address] [address] Marilin Kaiser M.D. [address] [place] [address] 05/27/2024 1:00 PM CDT Appointment Department of Radiology in [address] [address] Marilin Kaiser M.D. [address] [place] [address] 05/28/2024 9:15 AM CDT Appointment Department of Radiology in [place], [place] [address] [place] [address] Marilin Kaiser M.D. [address] [place] [address] 07/08/2024 1:15 PM [place] Appointment Department of Radiology in [address] [address] Marilin Kaiser M.D. [address] [place] [address] 07/08/2024 1:30 PM [place] Appointment Department of Radiology in [place] [address] [place] [address] Marilin Kaiser M.D. [address] [place] [address] 07/09/2024 9:45 AM [place] Appointment Department of Radiology in [address] [address] Marilin Kaiser M.D. [address] [place] [address] 08/19/2024 12:45 PM [place] Appointment Department of Radiology in [address] [address] Marilin Kaiser M.D. [address] [place] [address] 08/19/2024 1:00 PM [place] Appointment Department of Radiology in [address] [place] [address] Marilin Kaiser M.D. [address] [place] [address] 08/20/2024 9:45 AM [place] Appointment Department of Radiology in [place], [place] [address] [place] [address] Marilin Kaiser M.D. [address] [place] [address] documented as of this encounter Procedures Procedure [...] Antecubital documented in this encounter Care Teams Hide And Skin Classer Relationship Specialty Start Date End Date Elsewhere, Pcp PCP - General Family Medicine 08/31/20 documented as of this encounter
--- OUTSIDE RECORDS SUMMARY | 2024-02-22 01:13 | XMS_ITS | Encounter Summary ---
Author Organization [facility] Address [address] [place] [address] Care Team Providers Care Noteman Name Role Phone Elsewhere, Pcp Primary Care Provider Unavailabl e Reason for Referral * MRI/CAT/PET Scan (Routine) - Closed Specialty Diagnoses / Procedures Referred By Contac t Referred To Contact Diagnoses Primary Malignant Neoplasm Of Prostate (HCC) Procedures PET CT Skull to Thigh PSMA Marilin Kaiser M.D. [address] [place] [address] [facility] Region Referral ID Status Reason Start Date Expiration Date Visits Re quested Visits Authorized [id number] Closed 12/18/2023 12/17/2024 1 1 Encounter Details Date Type Department Care Team (Late st Contact Info) Description 12/18/2023 Orders Only Department of Oncology in [place], [place] [address] [place] [phone] Marilin Kaiser M.D. [address] [place] [phone] Primary Malignant Neoplasm Of Prostate (HCC) (Primary [...] How often do you attend chur or yarsani services? Never 12/21/2021 Do you belong to [...] Master's degree (e.g., MA, MS, Gail, MEd, CONCRETE TECHNICIAN, JAMIE) 12/21/2021 Sex and Gender Information Value Date Recorded Sex Assigned at Male 12/21/2021 7:22 AM CDT Gender Identity Male 12/21/2021 7:22 AM CDT Sexual Orientation Straight 12/21/2021 7: 22 AM CDT documented as of this encounter Plan of Treatment Upcoming Encounters Date Type Department Care Team (Late Contact Info) Description 03/04/2024 1:15 PM CDT Appointment Department of Radiology in [address] [address] Marilin Kaiser M.D. [address] [place] [address] 03/04/2024 1:30 PM CDT Appointment Department of Radiology in [address] [address] Marilin Kaiser M.D. [address] [place] [address] 03/05/2024 9:15 AM CDT Appointment Department of Radiology in [address] [address] Marilin Kaiser M.D. [address] [place] [address] 04/15/2024 1:15 PM CDT Appointment Department of Radiology in [address] [address] Marilin Kaiser M.D. [address] [place] [address] 04/15/2024 1:30 PM CDT Appointment Department of Radiology in [address] [address] Marilin Kaiser M.D. [address] [place] [address] 04/16/2024 9:15 AM CDT Appointment Department of Radiology in [address] [address] Marilin Kaiser M.D. [address] [place] [address] 05/27/2024 12:45 PM CDT Appointment Department of Radiology in [address] [address] Marilin Kaiser M.D. [address] [place] [address] 05/27/2024 1:00 PM CDT Appointment Department of Radiology in [address] [address] Marilin Kaiser M.D. [address] [place] [address] 05/28/2024 9:15 AM CDT Appointment Department of Radiology in [address] [address] Marilin Kaiser M.D. [address] [place] [address] 07/08/2024 1:15 PM ART HISTORIAN Appointment Department of Radiology in [address] [address] Marilin Kaiser M.D. [address] [place] [address] 07/08/2024 1:30 PM ART HISTORIAN Appointment Department of Radiology in [address] [address] Marilin Kaiser M.D. [address] [place] [address] 07/09/2024 9:45 AM ART HISTORIAN Appointment Department of Radiology in [place], [place] [address] [place] [address] Marilin Kaiser M.D. [address] [place] [address] 08/19/2024 12:45 PM ART HISTORIAN Appointment Department of Radiology in [address] [address] Marilin Kaiser M.D. [address] [place] [address] 08/19/2024 1:00 PM ART HISTORIAN Appointment Department of Radiology in [address] [address] Marilin Kaiser M.D. [address] [place] [address] 08/20/2024 9:45 AM ART HISTORIAN Appointment Department of Radiology in [address] [address] Marilin Kaiser M.D. [address] [place] [address] documented as of this encounter Results * [...] (HCC) documented in this encounter Care Teams Noteman Relationship Specialty Start Date End Date Elsewhere, Pcp PCP - General Family Medicine 08/31/20 documented as of this encounter
--- OUTSIDE RECORDS SUMMARY | 2024-02-22 01:13 | XMS_ITS | Clinical Summary ---
Author Organization [facility] Address [address] [place] [address] Care Team Providers Care Pediatrician/Medical Doctor Name Role Phone Rivas Torres MD Primary Care Provider [phone]- [phone] Allergies Active Allergy Reactions Criticality Noted Date [...] 3 days 10/22/2022 Active Cholecalciferol 250 MCG (45451 UT) CAPS 01/17/2022 Active lisinopril (ZESTRIL) 20 [...] age to complete this topic Care Teams Pediatrician/Medical Doctor Relationship Specialty Start Date End Date Rivas Torres MD PCP - General Family Practice 04/27/19
--- OUTSIDE RECORDS SUMMARY | 2024-02-22 01:13 | XMS_ITS | Referral Summary ---
Author Organization [facility] Address [address] [place] [address] Care Team Providers Care Heavy Line Technician Name Role Phone Rivas Torres MD Primary Care Provider +1- [phone] Allergies Active Allergy Reactions Criticality Noted Date [...] 3 days 10/22/2022 Active Cholecalciferol 250 MCG (30740 UT) CAPS 01/17/2022 Active lisinopril (ZESTRIL) 20 [...] of Treatment Not on file Care Teams Heavy Line Technician Relationship Specialty Start Date End Date Rivas Torres MD PCP - General Family Practice 04/27/19
--- OUTSIDE RECORDS SUMMARY | 2024-02-22 01:13 | XMS_ITS | Clinical Summary ---
Author Organization [employer] [facility] Address [place], [place] [address] Care Team Providers Care Agile Coach Name Role Phone Rivas Torres MD Primary Care Provider [phone] Allergies Active Allergy Reactions Criticality Noted Date Comments Allopurinol Itching 04/26/2017 Medications Medication Sig Dispensed Refills Start Date End Date Status droNABinol (MARINOL) 5 mg capsuleIndicatio ns:Cancer cachexia (HC) Take 1 Capsule (5 mg) by mouth three times daily before meals. 90 Capsule 4 03/22/20 24 Active ASPIRIN 81 MG TAB take 1 tablet (81mg) by oral route once daily 0 8 02/18/20 24 Discontinued(* Patient states no longer taking) leuprolide, 6 month, (LUPRON DEPOT, 6 MONTH,) 45 mg injection Inject 45 mg intramuscular EVERY 6 MONTHS. 0 5 Suspended medication order composer Calcium 1,200 0 2 02/18/20 24 Discontinued(* Patient states no longer taking) cyanocobalamin (VITAMIN B12) 1,000 mcg tabletIndication s:Vitamin B12 deficiency Taking 500 mcg every 3 days 0 3 02/18/20 24 Discontinued(* Patient states no longer taking) fluorouracil 5% topical (EFUDEX) 5 % creamIndications :Actinic keratoses APPLY TO AFFECTED AREA ONE DAY EVERY WEEK. 40 g 5 3 02/18/20 24 Discontinued(P harmacist change per medication history (E-cancel not sent)) lisinopriL (PRINIVIL; ZESTRIL) 20 mg tabletIndication s:Essential hypertension Take 0.5 Tablets (10 mg) by mouth two times daily. Dose decrease 03/13/23 90 Tablet 3 3 02/18/20 24 Discontinued(P harmacist change per medication history (E-cancel not sent)) chlorthalidone (HYGROTON) 25 mg tabletIndication s:Essential hypertension 1/2 tablet twice daily 90 Tablet 3 3 02/18/20 24 Discontinued(P harmacist change per medication history (E-cancel not sent)) rosuvastatin (CRESTOR) 5 mg tabletIndication s:Hyperlipidemia LDL goal <130 Take 1 Tablet (5 mg) by mouth at bedtime. 90 Tablet 3 3 Suspended Additional Information tamsulosin (FLOMAX) 0.4 mg capsuleIndicatio ns:Benign prostatic hyperplasia with weak urinary stream Take 2 Capsules (0.8 mg) by mouth once daily after a meal. 180 Capsule 3 3 Suspended Additional Information potassium chloride (KLOR-CON M20) 20 mEq extended-release tablet (part/cryst)Darshana cations:Hypokale nixon Take 2 Tablets (40 mEq) by mouth two times daily with meals. 360 Tablet 4 4 Suspended Additional Information meloxicam 15 mg tabletIndication s:Arthritis of knee TAKE ONE TABLET BY MOUTH ONCE DAILY NEEDED 30 Tablet 3 4 02/18/20 24 Discontinued(* Patient states no longer taking) darolutamide (NUBEQA) 300 mg tablet Take 600 mg by mouth two times daily with meals. 02/18/20 24 Discontinued(* Patient states no longer taking) oxyCODONE-acetam inophen (PERCOCET) 5-325 mg per tabletIndication s:Post-operative state Take 1-2 Tablets by mouth every 6 hours if needed for Pain. Max acetaminophen dose: 4000mg in 24 hrs. 6 Tablet 4 Suspended Additional Information calcium carbonate (CALCIUM 500 ORAL) Take 1,000 mg by mouth three times daily. Suspended cholecalciferol (VITAMIN D3) 2,000 unit capsule Take 2,000 units by mouth once daily. Suspended lisinopriL (PRINIVIL; ZESTRIL) 20 mg tablet Take 20 mg by mouth once daily. 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 [address] [place] [id number] Jesus Quiroz CRNA Chau, Chen Thay, MD 02/20/2024 1:22 PM CDT - 02/20/2024 2:[address] [facility] [address] [place] [address] Rivas Cook MD CYSTOSCOPY EVACUATION CLOT FULGURATION, RESECTION OF CLOT AND TUMOR 02/18/2024 2:37 PM CDT - Present Hospital Encounter [facility] [address] [place] [address] Tripp Bernabe MD Ahmad, MD Porter Wang Nathaniel Smith, MD [facility] [place] [facility] Scott Garcia MBBS Gross hematuria (Primary Dx); Prostate cancer (HC); Anemia, blood loss; Bladder outlet obstruction; Clot retention of urine; Cancer cachexia (HC) 02/17/2024 10:32 PM CDT - 02/18/2024 12:24 AM CDT Emergency [facility] Emergency Department [address], [place] [address] John Nj MD Acute urinary retention (Primary Dx) Discharge Disposition: Home Self Care 02/17/2024 Travel 12/26/2023 Orders Only [facility] Scanner 1 scan: (1-Ord) MR ARIELLE LUMBAR SPINE WO/W CON, 12/26/2023 12/11/2023 10:00 AM CDT Orders Only [facility] [address] [place] [address] [place] Outside Order (Severino Rodrigues) 12/11/2023 Travel 12/10/2023 Nurse Triage [facility] [address] [place] [address] Rivas Torres MD Error-please disregard (opened in error) 12/10/2023 Orders Only [facility] [address] [place] [address] Rivas Torres MD Outside Order (Ordered by Severino Rodrigues ) from Last 3 Months Immunizations Name Administration Dates Next Due COVID-19 vaccine (Visionarity-Itiva NTech 30mcg/0.3mL) 12YO+ MARIA C-SUCROSE PF, MDV 10/30/2021 COVID-19 vaccine (Visionarity-Bio NTech 30mcg/0.3mL) PF, MDV 05/24/2021,09/21/2020,08/31/2020 Influenza, High-dose [...] of Communication with Friends and Fami ly 0 02/21/2024 Alcohol Use Answer Date Recorded How often do you have a drink containing alcohol ? 2 09/13/2023 How many drinks containing a lcohol do you have on a typical day when you are drinking? 0 09/13/2023 How often do you have five or more drinks on one occasion? 0 09/13/2023 Financial Resource Strain Answer Date R ecorded Difficulty of Paying Living Expenses 3 02/21/2024 Difficulty of Paying Living Expenses Not on file 02/21/2024 Food Insecurity Answer Date Recorded Worried About Running Out of Food in the Last Ye ar 1 02/21/2024 Transportation Needs Answer Date Record ed Lack of Transportation (Medical) 1 02/21/2024 Housing Stability Answer Date Recorded Unable to Pay for Housing in the Last Year 1 02/21/2024 Sex and Gender Information Value Date Recorded Sex Assigned at Not on file Gender Identity Not on file Sexual Orientation Not on file Obstetrics History Last Filed Vital Signs Vital Sign Reading Time Taken Comments Blood Pressure 135/63 02/22/2024 1:00 AM CDT Pulse 63 02/22/2024 1:00 AM CDT Temperature 36.7 ??C (98.1 ??F) 02/22/2024 1:00 AM CD T Respiratory Rate 16 02/21/2024 7:42 PM CDT Oxygen Saturation 97% 02/22/2024 1:00 AM CDT Inhaled Oxygen Concentration - - Weight 90.3 kg (199 lb) 02/18/2024 2:50 PM CDT Height 185.4 cm (6' 1) 02/18/2024 2:50 PM CDT Body Mass Index 26.25 02/18/2024 2:50 PM CDT Plan of Treatment Upcoming Encounters Date Type Department Care Team (Latest Contact Info) Description 06/11/2024 7:15 AM AGRICULTURAL SCIENCE PROFESSOR Hospital Encounter [facility] [address] [place] [address] Severino Rodrigues MD [address] [place] [address] 06/11/2024 7:15 AM AGRICULTURAL SCIENCE PROFESSOR - 06/11/2024 8:31 AM AGRICULTURAL SCIENCE PROFESSOR Surgery [facility] [address] [place] [address] Severino Rodrigues MD [address] [place] [address] cystoscopy, left ureteral stent exchange Scheduled Procedures Name Priority Associated Diagnoses Date/Ti me CYSTOSCOPY EXCHANGE URETERAL STENT Elective N13.30 Unspecified hydronephrosis 06/11/2024 7:15 AM AGRICULTURAL SCIENCE PROFESSOR Health Maintenance Due Date Last Done Comments [...] Additional history exists Tetanus booster 05/13/2027 05/13/2017, 03/0 08/2005, 09/17/1995 Tdap Completed 05/13/2017, 10/03/2005 Pneumococcal series for age 65+ Completed 8, 05/02/2015 Hepatitis C screening for ag e 18-79 Completed 05/19/2018 Zoster (shingles) series for age 50+ Completed 03/08/2021, 01/04/2021 Medical Devices Implanted Type Area Automobile Spring Repairer Device Identifier Shelf Expiration Date Model / Serial / Lot Stent Uret [id number] Percuflex Hydroplus - [id number] Implanted:Qty: 1 on 02/01/2023 by Severino Rodrigues MD at [facility] Left: [facility]reter [facility] [place] [facility] 03/07/2025 [id number] / / [id number] Stent Uret [id number] Percuflex Hydroplus - [id number] Implanted:Qty: 1 on 10/03/2023 by Severino Rodrigues MD at [facility] Left: [employer] [facility] [place] [facility] 03/29/2026 [id number] / / [id number] Procedures The patient is currently admitted. The information in this section might not be complete until the patient is discharged. Procedure Name Priority Date/Time Associated Diagnosis Comments VITAMIN D 25 (DEFICIENCY) RACHAEL 02/21/2024 6:39 PM CDT CALCIUM Timed 02/21/2024 6:39 PM CDT BASIC METABOLIC PANEL Early AM 02/21/2024 5:44 AM CDT CBC W PLT NO DIFF Early AM 02/21/2024 5:4 4 AM CDT HEMOGLOBIN Timed 02/20/2024 4:51 PM CDT CALCIUM IONIZED HOSPITAL DRAW ONLY Timed 02/20/2024 4:51 PM CDT TRANSFUSE RBC (NURSE COMMUNICATION ORDER) STAT 02/20/2024 3:47 PM CDT RBC W/O TYPE & SCREEN STAT 02/20/2024 3:30 PM CDT RED BLOOD CELLS EA UNIT STAT 02/20/2024 3:30 PM CDT TRANSFUSE RBC (NURSE COMMUNICATION ORDER) STAT 02/20/2024 3:20 PM CDT RBC W/O TYPE & SCREEN STAT 02/20/2024 3:01 PM CDT RED BLOOD CELLS EA UNIT STAT 02/20/2024 3:01 PM CDT BASIC METABOLIC PANEL STAT 02/20/2024 2:24 PM CDT HEMOGLOBIN STAT 02/20/2024 2:24 PM CDT SUPRAGLOTTIC-LMA Routine 02/20/2024 1:48 PM CDT CYSTOSCOPY RESECTION BLADDER TUMOR Class D Urgent 02/20/2024 1:29 PM CDT CLOT RETENTION, BLOOD LOSS ANEMIA, HX OF PROSTATE CANCER CYSTOSCOPY EVACUATION BLADDER CLOTS Class D Urgent 02/20/2024 1:29 PM CDT CLOT RETENTION, BLOOD LOSS ANEMIA, HX OF PROSTATE CANCER HEMOGLOBIN Timed 02/20/2024 8:21 AM CDT CALCIUM IONIZED HOSPITAL DRAW ONLY Timed 02/20/2024 8:21 AM CDT HEPATIC FUNCTION PANEL Early AM 02/20/2024 5:14 AM CDT BASIC METABOLIC PANEL Early AM 02/20/2024 5:14 AM CDT TRANSFUSE RBC (NURSE COMMUNICATION ORDER) STAT 02/20/2024 4:53 AM CDT RED BLOOD CELLS EA UNIT STAT 02/20/2024 4:30 AM CDT RBC W/O TYPE & SCREEN STAT 02/20/2024 4:28 AM CDT HEMOGLOBIN Timed 02/20/2024 12:04 AM CDT CALCIUM IONIZED HOSPITAL DRAW ONLY Timed 02/20/2024 12:04 AM CDT PTH,INTACT Early AM 02/19/2024 5:04 PM CDT HEMOGLOBIN Timed 02/19/2024 5:04 PM CDT CALCIUM IONIZED HOSPITAL DRAW ONLY Timed 02/19/2024 5:[address] ABDOMEN PELVIS W RACHAEL 02/19/2024 1 2:04 PM CDT TRANSFUSE RBC (NURSE COMMUNICATION ORDER) STAT 02/19/2024 7:27 AM CDT RBC W/O TYPE & SCREEN STAT 02/19/2024 6:32 AM CDT RED BLOOD CELLS EA UNIT STAT 02/19/2024 6:21 AM CDT PLATELET ESTIMATE Timed 02/19/2024 5:3 5 AM CDT CALCIUM IONIZED HOSPITAL DRAW ONLY Early AM 02/19/2024 5:35 AM CDT CALCIUM Early AM 02/19/2024 5:35 AM CDT WHITE BLOOD COUNT Early AM 02/19/2024 5:3 5 AM CDT PLATELET COUNT Early AM 02/19/2024 5:35 AM CDT HEMOGLOBIN Early AM 02/19/2024 5:35 AM CDT MAGNESIUM Early AM 02/19/2024 5:35 AM CDT CREATININE Early AM 02/19/2024 5:35 AM CDT POTASSIUM Early AM 02/19/2024 5:35 AM CDT SODIUM Early AM 02/19/2024 5:35 AM CDT CALCIUM Today 02/18/2024 10:25 PM CDT POTASSIUM Today 02/18/2024 10:25 PM CDT TYPE & SCREEN STAT 02/18/2024 3:16 PM CDT HEPATIC FUNCTION PANEL RACHAEL 02/18/2024 3:16 PM CDT BASIC METABOLIC PANEL STAT 02/18/2024 3:16 PM CDT CBC W PLT NO DIFF STAT 02/18/2024 3:1 6 PM CDT RED CELL MORPHOLOGY STAT 02/18/2024 1 2:03 AM CDT PLATELET ESTIMATE STAT 02/18/2024 12: 03 AM CDT MANUAL DIFFERENTIAL STAT 02/18/2024 1 2:03 AM CDT CBC WITH AUTO DIFFERENTIAL STAT 02/18/2024 12:03 AM CDT BASIC METABOLIC PANEL STAT 02/18/2024 12:03 AM CDT CBC WITH AUTO DIFFERENTIAL STAT 02/18/2024 12:03 AM CDT URINALYSIS MICROSCOPIC STAT 02/17/2024 10:58 PM CDT UA W/ SEDIMENT EXAM REFLEXED PER CRITERIA STAT 02/17/2024 10:58 PM CDT SCAN-MRI INTERPRETATION 12/26/2023 12:00 AM CDT URINE CULTURE Routine 12/11/2023 8:03 AM CDT Hematuria syndrome ANTI HCV Routine 05/19/2018 7:38 AM CDT Need for hepatitis C screening test from Last 3 Months or Most Recently Relevant to Health Maintenance Results * VITAMIN D 25 (DEFICIENCY) (02/21/2024 6:39 PM CDT) Pathologist [facility] VITAMIN D TOTAL 23.3 20.0 - 80.0 ng/mL 02/22/2024 12:33 AM CDT [facility] Blood BLOOD SPECIMEN / Unknown Non-Lab Venipuncture / Unknown 02/21/2024 6:39 PM CDT 02/21/2024 6:46 PM CDT Narrative [facility] - 02/22/2024 12:33 AM CDT ? Vitamin D Status Deficiency: ? <20 ng/mL Insufficiency: ?20-29 ng/mL Sufficiency: ?30-80 ng/mL Possible Toxicity: ??>80 ng/mL Based on [place] of Medicine recommendations Biotin supplements may cause clinically significant interference for this test assay. ??If interference is suspected, it is strongly recommended that biotin is discontinued for at least one week prior to retesting. Paul Preston MD SEND OUTS Performing Organization Address [facility]/ZIP Co de Phone Number [facility] [address] [place] [address], * (ABNORMAL) CALCIUM (02/21/2024 6:39 PM CDT) Only the most recent of3 resultswithin the time period is included. Pathologist [facility] CALCIUM 6.3(L) 8.8 - 10.2 mg/dL 02/21/2024 7:47 PM CDT [facility] Blood BLOOD SPECIMEN / Unknown Non-Lab Venipuncture / Unknown 02/21/2024 6:39 PM CDT 02/21/2024 6:46 PM CDT Paul Preston MD CHEMISTRY Performing Organization Address [facility] Co de Phone Number [facility] [address] [place] [address], * (ABNORMAL) CBC (02/21/2024 5:44 AM CDT) Only the most recent of2 resultswithin the time period is included. WHITE BLOOD COUNT 5.4 4.5 - 11.0 thou/cu mm 02/21/2024 6:14 AM CDT [facility] RED BLOOD COUNT 2.66(L) 4.30 - 5.90 mil/cu mm 02/21/2024 6:14 AM CDT [facility] HEMOGLOBIN 7.1(L) 13.5 - 17.5 g/dL 02/21/2024 6:14 AM CDT [facility] HEMATOCRIT 22.2(L) 37.0 - 53.0 % 02/21/2024 6:14 AM CDT [facility] MCV 84 80 - 100 fL 02/21/2024 6:14 AM CDT [facility] MCH 26.7 26.0 - 34.0 pg 02/21/2024 6:14 AM CDT [facility] MCHC 32.0 32.0 - 36.0 g/dL 02/21/2024 6:14 AM CDT [facility] RDW 17.0(H) 11.5 - 15.5 % 02/21/2024 6:14 AM CDT [facility] PLATELET COUNT 79(L) 140 - 440 thou/cu mm 02/21/2024 6:14 AM CDT [facility] MPV 9.6 6.5 - 11.0 fL 02/21/2024 6:14 AM CDT [facility] NRBC 0.7 % 02/21/2024 6:14 AM CDT [facility] ABS NRBC 0.0 thou /cu mm 02/21/2024 6:14 AM T [facility] Blood BLOOD SPECIMEN / Unknown Non-Lab Venipuncture / Unknown 02/21/2024 5:44 AM CDT 02/21/2024 6:00 AM CDT Scott Garcia [facility] [address] * (ABNORMAL) Basic metabolic panel AM (02/21/2024 5:44 AM CDT) Only the most recent of5 resultswithin the time period is included. SODIUM 141 136 - 145 mmol/L 02/21/2024 6:38 AM CDT [facility] POTASSIUM 4.0 3.5 - 5.1 mmol/L 02/21/2024 6:38 AM T [facility] CHLORIDE 112(H) 98 - 107 mmol/L 02/21/2024 6:38 AM T [facility] CO2,TOTAL 20(L) 22 - 29 mmol/L 02/21/2024 6:38 AM T [facility] ANION GAP 9 5 - 18 02/21/2024 6:38 AM T [facility] GLUCOSE 160(H) 70 - 99 mg/dL 02/21/2024 6:38 AM T [facility] CALCIUM 5.6(LL) 8.8 - 10.2 mg/dL 02/21/2024 6:38 AM T [facility] BUN 21 8 - 23 mg/dL 02/21/2024 6:38 AM T [facility] CREATININE 0.68(L) 0.70 - 1.20 mg/dL 02/21/2024 6:38 AM [facility] BUN/CREAT RATIO 31(H) 10 - 20 6:38 AM T [facility] eGFR >90 >90 mL/min/1.7 3m2 02/21/2024 6:38 AM [facility] Comment:As of 2021, eG FR is calculated by the CKD-EPI creatinine equation without race adjustment. ??eGFR can be influenced by muscle mass, exercise, and diet. ??The reported eGFR is an estimation only and is only applicable if the renal function is stable. Blood BLOOD SPECIMEN / Unknown Non-Lab Venipuncture / Unknown 02/21/2024 5:44 AM CDT 02/21/2024 6:00 AM CDT Scott Rodriguez Radha RAY CHEMISTRY Performing Organization Address City/[facility]/ZIP Co de Phone Number [facility] [address] [address], [place] * (ABNORMAL) Hemoglobin q 12 (02/20/2024 4:51 PM CDT) Only the most recent of6 resultswithin the time period is included. HEMOGLOBIN 8.1(L) 13.5 - 17.5 g/dL 02/20/2024 5:13 PM CDT [facility] MCV 85 80 - 100 fL 02/20/2024 5:13 PM CDT [facility] Blood BLOOD SPECIMEN / Unknown Non-Lab Venipuncture / Unknown 02/20/2024 4:51 PM CDT 02/20/2024 5:05 PM CDT Scott Garcia [facility] Performing Organization Address [facility] Co de Phone Number [facility] [address] [phone], [place] * (ABNORMAL) Calcium, ionized STAT (02/20/2024 4:51 PM CDT) Only the most recent of5 resultswithin the time period is included. CALCIUM,IONIZE D 0.93(L) 1.15 - 1.27 mmol/L 02/20/2024 5:09 PM CDT [facility] Blood BLOOD SPECIMEN / Unknown Non-Lab Venipuncture / Unknown 02/20/2024 4:51 PM CDT 02/20/2024 5:05 PM CDT Scott Michaelpauline Garcia [facility] CHEMISTRY Performing Organization Address City/[facility]/ZIP Co de Phone Number [facility] [address] [phone], [place] * TRANSFUSE RBC (NURSE COMMUNICATION ORDER) (02/20/2024 3:47 PM CDT) Blood BLOOD SPECIMEN / Unknown Jesus Quiroz CRNA NURSING BLOOD B ANK * RBC W/O TYPE & SCREEN (02/20/2024 3:30 PM CDT) Only the most recent of4 resultswithin the time period is included. QUANTITY 1 02/20/2024 3:3 0 PM CDT [facility] Blood BLOOD SPECIMEN / Unknown 02/20/2024 3:28 PM CDT Jesus Quiroz CRNA BLOOD BANK [facility] [employer] [facility] [address] [place] [address], [place] [phone] * RED BLOOD CELLS EA UNIT (02/20/2024 3:30 PM CDT) Only the most recent of4 resultswithin the time period is included. CROSSMATCH Compatible Compatible [facility] PRODUCT BLOOD TYPE O Rh Positive [facility] PRODUCT ID NUMBER [id number] [facility] B[facility] PRODUCT STATUS Transfused [facility] [email or web address] LAB-CENTRAL LAB BLOOD BANK PRODUCT DESCRIPTION RBC -1 LR [facility] PRODUCT CODE [id number] [facility]LO[facility] ISSUE DATE/TIME 02/20/24 15:37 [facility] [place] [facility] Jesus Quiroz CRNA BLOOD BANK [facility]out[facility]maticC[facility]TR[facility] [address] [place] [address], [place] [phone] * TRANSFUSE RBC (NURSE COMMUNICATION ORDER) (02/20/2024 3:21 PM CDT) Blood BLOOD SPECIMEN / Unknown Geri Damon MD NURSING BLOOD BANK * HCHG MASK PR5 (02/20/2024 1:48 PM CDT) Narrative Coral Holbrook CRNA - 02/20/2024 1:48 PM CDT Coral Holbrook CRNA ? 02/20/2024 ??1:49 PM Procedure: Supraglottic Patient location during procedure: OR Supraglottic Airway Properties Mask Ventilation: easy Type: unique Tube Size: 5 Insertion Attempts: 1 Placement Verification: CO2 detection Assessment Assessment: dentition unchanged and atraumatic Airway Intervention: cuff inflated and secured Cuff Volume: 5 Geri Damon MD ANESTHESIA PX NOTE O RDERABLES * TRANSFUSE RBC (NURSE COMMUNICATION ORDER) (02/20/2024 6:41 AM CDT) Blood BLOOD SPECIMEN / Unknown Harjeet Maria DO NURSING BLOOD BANK * (ABNORMAL) Hepatic function panel AM (02/20/2024 5:14 AM CDT) Only the most recent of2 resultswithin the time period is included. ALBUMIN 2.2(L) 4.0 - 4.9 g/dL 02/20/2024 5:58 AM CDT [facility] PROTEIN,TOTAL 4.3(L) 6.0 - 8.0 g/dL 02/20/2024 5:58 AM CDT [facility] BILIRUBIN,TOTAL 0.4 0.0 - 1.2 mg/dL 02/20/2024 5:58 AM CDT [facility] BILIRUBIN,DIRECT <0.2 0.0 - 0.3 mg/dL 02/20/2024 5:58 AM CDT [facility] BILIRUBIN,INDIRE CT 02/20/2024 5:58 AM CDT [facility] Comment:Unable to calculate, Direct Bili <0.2 ALK PHOSPHATASE 519(H) 40 - 129 IU/L 02/20/2024 5:58 AM CDT [facility] ALT (SGPT) 16 10 - 50 IU/L 02/20/2024 5:58 AM CDT [facility] AST (SGOT) 103(H) 10 - 50 IU/L 02/20/2024 5:58 AM CDT [facility] Blood BLOOD SPECIMEN / Unknown Non-Lab Venipuncture / Unknown 02/20/2024 5:14 AM CDT 02/20/2024 5:22 AM CDT Scott HURST CHEMISTRY Performing Organization Address [facility] Co de Phone Number [facility] [address] [place] [address], [place] * (ABNORMAL) PTH intact TODAY (02/19/2024 5:04 PM CDT) [facility] CALCIUM 5.3(LL) 8.8 - 10.2 mg/dL 02/19/2024 6:13 PM CDT [facility] PTH,INTACT 500.0(H) 15.0 - 69.0 pg/mL 02/19/2024 6:13 PM CDT [facility] Blood BLOOD SPECIMEN / Unknown Non-Lab Venipuncture / Unknown 02/19/2024 5:04 PM CDT 02/19/2024 5:24 PM CDT Scott HURST SEND OUTS Performing Organization Address [facility] de Phone Number [facility] [address] [place] [address], [place] * CT ABDOMEN PELVIS W (02/19/2024 12:04 PM CDT) Anatomical Region Laterality Modality Abdomen, Pelvis, AORTA, LIVER, SPLEEN Computed Tomography 02/20/2024 2:09 PM CDT Impressions 02/20/2024 2:09 PM CDT 1. Scattered sclerotic skeletal metastases related to patient`s known prostate cancer. 2. Splenomegaly with numerous low-attenuation lesions in the spleen possibly hemangiomas. These were demonstrated previously. 3. Enlarged prostate gland. Bladder clot. 4. Mccann catheter. Left-sided double-J urinary stent. 5. Scattered small amount of abdominopelvic ascites. 6. Air within the soft tissues of the lower anterior abdominal pelvic wall extending into the left inguinal region presumably post procedural in nature. Please correlate clinically. Please note that all CT scans at this facility use dose modulation, iterative reconstruction, and/or weight-based dosing when appropriate to reduce radiation dose to as low as reasonably achievable. Dictated by Daniele Salmeron MD @ 02/20/2024 2:09:44 PM (Electronically Signed) Narrative 02/20/2024 2:09 PM CDT For Patients: ??As a result of the Cures Act, medical imaging exams and procedure reports are released immediately into your electronic medical record. ??You may view this report before your referring provider. ??If you have questions, please contact your health care provider. INDICATION : Left lower quadrant abdominal pain. Left-sided ureteral stent. Metastatic prostate cancer. Lupron therapy. Radiation therapy. TECHNIQUE: Contrast-enhanced CT of the abdomen and pelvis. 100 cc nonionic Omnipaque 350 administered. COMPARISON: November 27, 2016. FINDINGS: Minor curvilinear atelectasis left lung base. Vascular calcification within the thoracic aorta. The liver is negative for masses or biliary dilatation. The spleen is mildly enlarged measuring 14.8 cm in cephalocaudal extent. There are numerous low-attenuation lesions in the spleen which could reflect hemangiomas. These were present on November 27, 2016 but the spleen is somewhat larger than before. Accessory splenule left upper quadrant. Normal appearing pancreas without pancreatic masses or pancreatic ductal dilatation. Normal-appearing gallbladder and adrenal glands. Here is mild distention of the right renal collecting system and right ureter to the level of the urinary bladder without obstructing mass or stone. There is mild left-sided hydronephrosis with a left-sided double-J urinary stent with its proximal end in an upper pole calyx and its distal end in the left side of the urinary bladder where there is a Mccann catheter. Within the urinary bladder there is high-density material compatible with bladder clot. There is a small amount of low-attenuation urine in the bladder as well as air likely due to instrumentation. Please correlate regarding bladder irrigation of the Mccann catheter. The prostate gland is enlarged. There is a small amount of abdominopelvic ascites about the spleen, both pericolic gutters, and in the lower pelvis. There are small dots of air within the subcutaneous soft tissues of the lower anterior abdominal wall and near the left side of the penis presumably postprocedural in nature. Small surgical clips are identified within each inguinal region. Vascular calcifications within a normal caliber abdominal aorta and iliac arteries. Normal inferior vena cava. No bowel obstruction or ileus. Scattered sclerotic skeletal bone disease within the pelvis in particular the left iliac bone, proximal left femur, and within in the lower thoracic spine particularly at T12. Procedure Note Daniele Salmeron MD - 02/20/2024 For Patients: As a result of the Century Cures Act, medical imagingexams and procedure reports are released immediately into your electronicmedical record. You may view this report before your referring provider.If you have questions, please contact your health care provider. INDICATION : Left lower quadrant abdominal pain. Left-sided ureteral stent. Metastaticprostate cancer. Lupron therapy. Radiation therapy. TECHNIQUE: Contrast-enhanced CT of the abdomen and pelvis. 100 cc nonionic Omnipaque 350 administered. COMPARISON: November 27, 2016. FINDINGS: Minor curvilinear atelectasis left lung base. Vascular calcificationwithin the thoracic aorta. The liver is negative for masses or biliary dilatation. The spleen ismildly enlarged measuring 14.8 cm in cephalocaudal extent. There arenumerous low-attenuation lesions in the spleen which could reflecthemangiomas. These were present on November 27, 2016 but the spleen issomewhat larger than before. Accessory splenule left upper quadrant. Normal appearing pancreas without pancreatic masses or pancreatic ductaldilatation. Normal-appearing gallbladder and adrenal glands. Here is mild distention of the right renal collecting system and rightureter to the level of the urinary bladder without obstructing mass orstone. There is mild left-sided hydronephrosis with a left-sided double-J urinarystent with its proximal end in an upper pole calyx and its distal end inthe left side of the urinary bladder where there is a Mccann catheter.Within the urinary bladder there is high-density material compatible withbladder clot. There is a small amount of low-attenuation urine in thebladder as well as air likely due to instrumentation. Please correlateregarding bladder irrigation of the Mccann catheter. The prostate gland isenlarged. There is a small amount of abdominopelvic ascites about the spleen, bothpericolic gutters, and in the lower pelvis. There are small dots of airwithin the subcutaneous soft tissues of the lower anterior abdominal walland near the left side of the penis presumably postprocedural in nature.Small surgical clips are identified within each inguinal region. Vascular calcifications within a normal caliber abdominal aorta and iliacarteries. Normal inferior vena cava. No bowel obstruction or ileus. Scattered sclerotic skeletal bone disease within the pelvis in particularthe left iliac bone, proximal left femur, and within in the lower thoracicspine particularly at T12. IMPRESSION: 1. Scattered sclerotic skeletal metastases related to patient`s knownprostate cancer. 2. Splenomegaly with numerous low-attenuation lesions in the spleenpossibly hemangiomas. These were demonstrated previously. 3. Enlarged prostate gland. Bladder clot. 4. Mccann catheter. Left-sided double-J urinary stent. 5. Scattered small amount of abdominopelvic ascites. 6. Air within the soft tissues of the lower anterior abdominal pelvic wallextending into the left inguinal region presumably post procedural innature. Please correlate clinically. Please note that all CT scans at this facility use dose modulation,iterative reconstruction, and/or weight-based dosing when appropriate toreduce radiation dose to as low as reasonably achievable. Dictated by Daniele Salmeron MD @ 02/20/2024 2:09:44 PM (Electronically Signed) Scott HURST CT * TRANSFUSE RBC (NURSE COMMUNICATION ORDER) (02/19/2024 9:13 AM CDT) Blood BLOOD SPECIMEN / Unknown Navid Flores MD NURSING BLOOD BAN K * (ABNORMAL) PLATELET ESTIMATE (02/19/2024 5:35 AM CDT) Only the most recent of2 resultswithin the time period is included. PLATELET ESTIMATE Decreased (A) Adequate, No estimate 02/19/2024 6:28 AM CDT [facility] Blood BLOOD SPECIMEN / Unknown Non-Lab Venipuncture / Unknown 02/19/2024 5:35 AM CDT 02/19/2024 5:47 AM CDT Kathleen Garner MD HEMATOLOGY Performing Organization Address [facility] Co de Phone Number [facility] [address] [place] [address], [place] * (ABNORMAL) PLATELET COUNT (02/19/2024 5:35 AM CDT) PLATELET COUNT 99(L) 140 - 440 thou/cu mm 02/19/2024 6:28 AM CDT [facility] MPV 9.4 6.5 - 11.0 fL 02/19/2024 6:28 AM CDT [facility] Blood BLOOD SPECIMEN / Unknown Non-Lab Venipuncture / Unknown 02/19/2024 5:35 AM CDT 02/19/2024 5:47 AM CDT Kathleen Garner MD HEMATOLOGY Performing Organization Address [facility] de Phone Number [facility] [address] [place] [address], [place] * (ABNORMAL) WHITE BLOOD COUNT (02/19/2024 5:35 AM CDT) WHITE BLOOD COUNT 4.0(L) 4.5 - 11.0 thou/cu mm 02/19/2024 6:28 AM CDT [facility] NRBC 0.5 % 02/19/2024 6:28 AM CDT [facility] ABS NRBC 0.0 thou /cu mm 02/19/2024 6:28 AM CDT [facility] Blood BLOOD SPECIMEN / Unknown Non-Lab Venipuncture / Unknown 02/19/2024 5:35 AM CDT 02/19/2024 5:47 AM CDT Kathleen Garner MD HEMATOLOGY Performing Organization Address [facility] Co de Phone Number [facility] [address] [address], [place] * SODIUM (02/19/2024 5:35 AM CDT) SODIUM 136 136 - 145 mmol/L 02/19/2024 6:15 AM CDT [facility] Blood BLOOD SPECIMEN / Unknown Non-Lab Venipuncture / Unknown 02/19/2024 5:35 AM CDT 02/19/2024 5:47 AM CDT Kathleen Garner MD CHEMISTRY Performing Organization Address City/[facility] Co de Phone Number [facility] [address] [place] [address], [place] * POTASSIUM (02/19/2024 5:35 AM CDT) Only the most recent of2 resultswithin the time period is included. POTASSIUM 4.4 3.5 - 5.1 mmol/L 02/19/2024 6:15 AM CDT [facility] Blood BLOOD SPECIMEN / Unknown Non-Lab Venipuncture / Unknown 02/19/2024 5:35 AM CDT 02/19/2024 5:47 AM CDT Kathleen Garner MD CHEMISTRY Performing Organization Address [facility] de Phone Number [facility] [address] [place] [address], [place] * CREATININE (02/19/2024 5:35 AM CDT) eGFR >90 >90 mL/min/1.7 3m2 02/19/2024 6:15 AM CDT [facility] Comment:As of 2021, eG FR is calculated by the CKD-EPI creatinine equation without race adjustment. ??eGFR can be influenced by muscle mass, exercise, and diet. ??The reported eGFR is an estimation only and is only applicable if the renal function is stable. CREATININE 0.70 0.70 - 1.20 mg/dL 02/19/2024 6:15 AM CDT [facility] Blood BLOOD SPECIMEN / Unknown Non-Lab Venipuncture / Unknown 02/19/2024 5:35 AM CDT 02/19/2024 5:47 AM CDT Kathleen Garner MD CHEMISTRY [facility] [address] [place] [address], * MAGNESIUM (02/19/2024 5:35 AM CDT) MAGNESIUM 1.7 1.6 - 2.4 mg/dL 02/19/2024 6:15 AM CDT [facility] Blood BLOOD SPECIMEN / Unknown Non-Lab Venipuncture / Unknown 02/19/2024 5:35 AM CDT 02/19/2024 5:47 AM CDT Kathleen Garner MD CHEMISTRY Performing Organization Address [facility] Co de Phone Number [facility] [address] [place] [address], * TYPE AND SCREEN ONLY (02/18/2024 3:16 PM CDT) ABORH O Rh Positive 02/18/2024 4:19 PM CDT [facility] ANTIBODY SCREEN Negative Negative 02/18/2024 4:19 PM CDT [facility] SPECIMEN EXPIRATION DATE/TIME 02/21/24 23:59 02/18/2024 4:19 PM CDT [facility] Blood BLOOD SPECIMEN / Unknown Butterfly / Unknown 02/18/2024 3:16 PM CDT 02/18/2024 3:40 PM CDT Tripp Bernabe MD BLOOD BANK [facility] [address] [place] [address], * (ABNORMAL) CBC WITH AUTO DIFFERENTIAL (02/18/2024 12:03 AM CDT) WHITE BLOOD COUNT 4.8 4.5 - 11.0 thou/cu mm 02/18/2024 1:27 AM CDT [facility] RED BLOOD COUNT 2.98(L) 4.30 - 5.90 mil/cu mm 02/18/2024 1:27 AM T [facility] HEMOGLOBIN 7.5(L) 13.5 - 17.5 g/dL 02/18/2024 1:27 AM [facility] HEMATOCRIT 24.2(L) 37.0 - 53.0 % 02/18/2024 1:27 AM T [facility] MCV 81 80 - 100 fL 02/18/2024 1:27 AM T [facility] MCH 25.2(L) 26.0 - 34.0 pg 02/18/2024 1:27 AM [facility] MCHC 31.0(L) 32.0 - 36.0 g/dL 02/18/2024 1:27 AM [facility] RDW 18.2(H) 11.5 - 15.5 % 02/18/2024 1:27 AM T [facility] PLATELET COUNT 109(L) 140 - 440 thou/cu mm 02/18/2024 1:27 AM T [facility] MPV 9.8 6.5 - 11.0 fL 02/18/2024 1:27 AM [facility] NRBC 0.6 % 02/18/2024 1:27 AM T [facility] ABS NRBC 0.0 thou /cu mm 02/18/2024 1:27 AM [facility] Blood BLOOD SPECIMEN / Unknown Venipuncture / Unknown 02/18/2024 12:03 AM CDT 02/18/2024 12:11 AM CDT John Nj MD HEMATOLOGY [facility] [address], [place] [address], * (ABNORMAL) RED CELL MORPHOLOGY (02/18/2024 12:03 AM CDT) ELLIPTOCYTES Few 02/18/2024 1:27 AM CDT [facility] POLYCHROMASIA Slight 02/18/2024 1:27 AM CDT [facility] RBC COMMENT Present(A) RBC morphology appears normal, RBC morphology within normal limits for newborns. 02/18/2024 1:27 AM CDT [facility] Blood BLOOD SPECIMEN / Unknown Venipuncture / Unknown 02/18/2024 12:03 AM CDT 02/18/2024 12:11 AM CDT John Nj MD HEMATOLOGY Performing Organization Address City/State/[facility] Co de Phone Number [facility] [address] [place] [address], * (ABNORMAL) MANUAL DIFFERENTIAL (02/18/2024 12:03 AM CDT) % NEUTROPHILS 81.2 % 02/18/2024 1:27 AM CDT [facility] % LYMPHOCYTES 9.4 % 02/18/2024 1:27 AM CDT [facility] % MONOCYTES 6.0 % 02/18/2024 1:27 AM CDT [facility] % EOSINOPHILS 0.8 % 02/18/2024 1:27 AM CDT [facility] % BASOPHILS 0.9 % 02/18/2024 1:27 AM CDT [facility] % METAMYELOCYTES 1.7(H) <0.1 % 02/18/20 24 1:27 AM CDT [facility] NEUTROPHILS ABSOLUTE 3.9 1.7 - 7.0 thou/cu mm 02/18/2024 1:27 AM CDT [facility] LYMPHOCYTES ABSOLUTE 0.5(L) 0.9 - 2.9 thou/cu mm 02/18/2024 1:27 AM CDT [facility] MONOCYTES ABSOLUTE 0.3 <0.9 thou/cu mm 02/18/2024 1:27 AM CDT [facility] EOSINOPHILS ABSOLUTE 0.0 <0.5 thou/cu mm 02/18/2024 1:27 AM CDT [facility] BASOPHILS ABSOLUTE 0.0 <0.3 thou/cu mm 02/18/2024 1:27 AM CDT [facility] ABSOLUTE METAMYELOCYTES 0.1(H) <=0.0 thou/cu mm 02/18/2024 1:27 AM CDT [facility] Blood BLOOD SPECIMEN / Unknown Venipuncture / Unknown 02/18/2024 12:03 AM CDT 02/18/2024 12:11 AM CDT John Nj MD HEMATOLOGY Performing Organization Address City/State/[facility] Co de Phone Number [facility] [address] [place] [phone], * (ABNORMAL) URINALYSIS MICROSCOPIC (02/17/2024 10:58 PM CDT) RBC >100(A) 0-2, None Seen /HPF 02/17/2024 11:35 PM CDT [facility] WBC 6-10(A) 0-2, 3-5, None Seen /HPF 02/17/2024 11:35 PM CDT [facility] BACTERIA None Seen None Seen, Rare, Few Bacteria/ HPF 02/17/2024 11:35 PM CDT [facility] EPITHELIAL CELLS None Seen None Seen, Few Epi/HPF 02/17/2024 11:35 PM CDT [facility] HYALINE CASTS 3-5 0-2, 3-5 /LPF 02/17/2024 11:35 PM CDT [facility] Urine URINE SPECIMEN / Unknown Non-Blood / Unknown 02/17/2024 10:58 PM CDT 02/17/2024 11:10 PM CDT John Nj MD URINE [facility] [address] [place] [address], [place] * (ABNORMAL) UA W/ SEDIMENT EXAM REFLEXED PER CRITERIA (02/17/2024 10:58 PM CDT) COLOR [place](A) Yellow Color 02/17/2024 11:35 PM CDT [facility] CLARITY Clear Clear Clarity 02/17/2024 11:35 PM CDT [facility] SPECIFIC GRAVITY,URINE 1.010 1.010, 1.015, 1.020, 1.025 02/17/2024 11:35 PM CDT [facility] PH,URINE 8.0 6.0, 7.0, 8.0, 5.5, 6.5, 7.5, 8.5 02/17/2024 11:35 PM CDT [facility] UROBILINOGEN, QUALITATIVE Normal Normal EU/dl 02/17/2024 11:35 PM CDT [facility] PROTEIN, URINE 100(A) Negative mg/dL 02/17/2024 11:35 PM CDT [facility] GLUCOSE, URINE Negative Negative mg/dL 02/17/2024 11:35 PM CDT [facility] KETONES,URINE Negative Negative mg/dL 02/17/2024 11:35 PM CDT [facility] BILIRUBIN,URI NE Negative Negative 02/17/2024 11:35 PM CDT [facility] OCCULT BLOOD,URINE Large(A) Negative 02/17/2024 11:35 PM CDT [facility] NITRITE Negative Negative 02/17/2024 11:35 PM CDT [facility] LEUKOCYTE ESTERASE Trace(A) Negative 02/17/2024 11:35 PM CDT [facility] Urine URINE SPECIMEN / Unknown Non-Blood / Unknown 02/17/2024 10:58 PM CDT 02/17/2024 11:10 PM CDT John Nj MD URINE Performing Organization Address [facility] Co de Phone Number [facility] [address] [place] [address], * SCAN-MRI INTERPRETATION (12/26/2023 12:00 AM CDT) Anatomical Region Laterality Modality Other Scanner OTHER * URINE CULTURE (12/11/2023 8:03 AM CDT) CULTURE No growth (<1,000 CFU/mL) 12/12/2023 11:32 AM CDT [facility] Urine URINE SPECIMEN / Unknown Non-Blood / Unknown 12/11/2023 8:03 AM CDT 12/11/2023 8:03 AM CDT Rivas Torres MD MICROBIOLOGY Performing Organization Address [facility] de Phone Number [id number] [address] [place] [address], * ANTI HCV [50518.2] (05/19/2018 7:38 AM CDT) HEPATITIS C ANTIBODY Non-React rafia Non-React rafia 05/19/2018 3:00 PM CDT [facility] Comment:Antibodies to HCV no t detected; does not exclude the possibility of exposure to HCV. Blood BLOOD SPECIMEN / Unknown Venipuncture / Unknown 05/19/2018 7:38 AM CDT 05/19/2018 7:39 AM CDT Rivas Torres MD SEND OUTS Performing Organization Address [facility] Co de Phone Number [facility] [address] [place] [address], [place] from Last 3 Months or Most Recently Relevant to Health Maintenance Advance Directives * Full Code (Latest Code Status on File) Date Activated Date Inactivated Comments 02/18/2024 6:51 PM Question Answer Comments Code Status Discussion: Reviewed Preferences * Full Code Date Activated Date Inactivated Comments 10/03/2023 12:21 PM 10/03/2023 7:18 PM Question Answer Comments Code Status Discussion: Unable to Assess Preferences, Provider to review later * Full Code Date Activated Date Inactivated Comments 02/01/2023 9:10 AM 02/01/2023 6:04 PM Question Answer Comments Code Status Discussion: Not Discussed Care Teams Agile Coach Relationship Specialty Start Date End Date Rivas Torres MD [place] [address] PCP - General 01/09/06
== END 2024-02-18 13:39 | disposition home or self-care (01) ==
LOC: AMB 02-22 01:09
PROVIDERS: PCP Family Medicine; Visit Provider Family Medicine
DX: D64.9 Anemia, unspecified (principal); E83.51 Hypocalcemia; C61 Malignant neoplasm of prostate
CPT/HCPCS: A0425; A0427

== ENCOUNTER 2024-03-11 09:00 | Outpatient (RCR) | payer MEDICARE, BC, SELFPAY ==
[2023-12-04 11:15] LABS: Albumin* 3.7 g/dL (3.3-5.0)
[2023-12-04 11:18] LABS: Alanine Aminotransferase* 33 U/L (4-50); Alkaline Phosphatase* 166 U/L (40-150); Aspartate Amino Transferase* 33 U/L (12-35); Bilirubin Direct* 0.1 mg/dL (0.0-0.5); Bilirubin Total* 0.9 mg/dL (0.1-1.5); Total Protein* 6.5 g/dL (6.0-8.3)
--- NOTE | 2023-12-04 15:30 | ONC.NURNOTE ---
LFTs reviewed by Dr Kaiser as improved- he had been taking 300mg Nubeqa daily instead of BID- he was informed by this policy writer to take 300mg BID next appts in [address] Kaiser
[2023-12-17 08:57] LABS: Basophils Absolute Auto 0.01 K/uL (0.00-0.30); Basophils Percent Auto 0.1 % (0.0-3.0); Eosinophils Absolute Auto 0.05 K/uL (0.00-0.50); Eosinophils Percent Auto 0.7 % (0.0-7.0); Hematocrit 32.2 % (37.0-53.0); Hemoglobin* 10.2 gm/dL (13.5-17.5); Immature Granulocytes Abs Auto 0.05 K/uL (0.00-0.30); Immature Granulocytes Pct Auto 0.7 %; Mean Corpuscular HGB Conc 32 gm/dL (32-36); Mean Corpuscular Hemoglobin 29 pg (26-34); Mean Corpuscular Volume 90 fL (80-100); Monocytes Percent Auto 8.4 % (0.0-11.0); Neutrophils Percent Auto 83.1 % (42.0-72.0); Platelet Count* 195 K/uL (140-440); RDW Coefficient of Variation % 14.5 % (11.5-15.5); Red Blood Count 3.58 m/uL (4.30-5.90)
[2023-12-17 09:00] LABS: Slide Review Reflex No
[2023-12-17 09:12] LABS: Albumin* 3.3 g/dL (3.3-5.0); Chloride* 109 mmol/L (96-114)
[2023-12-17 09:13] LABS: Potassium* 4.7 mmol/L (3.6-5.1); Sodium* 139 mmol/L (135-149)
--- NOTE | 2023-12-17 09:13 | PC.NURSE ---
Pt present at [facility] today for labs. Solis shares that he has new RIGHT lower back pain. This gets worse after playing pickle ball. He states this is different from his bone met pain. Solis has been taking Ibuprofen with relief. He wondered about taking Aleve instead and asked which would be best for him. RN provided education about NSAIDS and instructed him to take one or the other. Solis asked about a sports medicine referral. RN informed that any referral would need to come from PCP but that ultimately the cause of the pain needs to be investigated and cancer being the cause needs to be ruled out before any further action. Solis will see Dr. Kaiser tomorrow and can discuss further. Supportive listening provided.
[2023-12-17 09:15] LABS: Bilirubin Total* 0.9 mg/dL (0.1-1.5); Creatinine* 0.6 mg/dL (0.5-1.5); Estimated Glomerular Filt Rate 100 ml/min
[2023-12-17 09:16] LABS: Alanine Aminotransferase* 14 U/L (4-50); Alkaline Phosphatase* 273 U/L (40-150); Anion Gap 2 mEq/L (7-15); Aspartate Amino Transferase* 25 U/L (12-35); Blood Urea Nitrogen* 19 mg/dL (7-30); Calcium* 8.1 mg/dL (8.4-10.6); Carbon Dioxide* 28 mmol/L (20-32); Glucose* 94 mg/dL (60-115)
--- NOTE | 2023-12-18 10:47 | ONC.NURNOTE ---
James d/c'ed today by Dr Job Barger PAF was notified- where Solis was receiving his medication
[2024-01-03] MEDS: SODIUM CHLORIDE 0.9 % (FLUSH) 10 ML SYRINGE IVF (09:53)
[2024-01-03] MEDS: HEPARIN 500 UNIT/5 ML SYRINGE IVF (09:53)
[2024-01-03 10:13] LABS: Basophils Absolute Auto 0.01 K/uL (0.00-0.30); Basophils Percent Auto 0.1 % (0.0-3.0); Eosinophils Absolute Auto 0.02 K/uL (0.00-0.50); Eosinophils Percent Auto 0.3 % (0.0-7.0); Hematocrit 31.9 % (37.0-53.0); Immature Granulocytes Abs Auto 0.09 K/uL (0.00-0.30); Immature Granulocytes Pct Auto 1.3 %; Mean Corpuscular HGB Conc 31 gm/dL (32-36); Mean Corpuscular Hemoglobin 27 pg (26-34); Mean Corpuscular Volume 87 fL (80-100); Neutrophils Percent Auto 83.3 % (42.0-72.0); Platelet Count* 203 K/uL (140-440); Red Blood Count 3.65 m/uL (4.30-5.90); White Blood Count* 7.12 K/uL (4.50-11.00)
[2024-01-03 10:14] LABS: Slide Review Reflex No
[2024-01-04 15:15] LABS: Testosterone, Adult Male 13 ng/dL (300-720)
--- NOTE | 2024-01-06 14:11 | ONC.NURNOTE ---
Pt notified that Dr. Kaiser sent in prescription for Percocet to his pharmacy.
--- NOTE | 2024-01-08 12:36 | ONC.NURNOTE ---
Patient with elevated PSA and PSMA with progression so current oral medication discontinued and patient being seen by radiation team in [place] for Pluvicto treatment. Plan per Dr. Kaiser is to continue with Denosumab/Eliguard
--- NOTE | 2024-01-08 13:38 | URNOTE ---
Prior auth is not required for Xgeva ([id number]). Pt has medicare primary. Services are based on medical necessity and follow medicare guidelines
[2024-01-20 07:52] LABS: Eosinophils Absolute Auto 0.05 K/uL (0.00-0.50); Hematocrit 30.5 % (37.0-53.0); Hemoglobin* 9.4 gm/dL (13.5-17.5); Immature Granulocytes Abs Auto 0.09 K/uL (0.00-0.30); Immature Granulocytes Pct Auto 1.8 %; Lymphocytes Percent Auto 9.9 % (20-44); Mean Corpuscular HGB Conc 31 gm/dL (32-36); Mean Corpuscular Hemoglobin 26 pg (26-34); Mean Corpuscular Volume 86 fL (80-100); Monocytes Percent Auto 6.9 % (0.0-11.0); Neutrophils Percent Auto 80.4 % (42.0-72.0); Platelet Count* 160 K/uL (140-440); Red Blood Count 3.56 m/uL (4.30-5.90); White Blood Count* 4.94 K/uL (4.50-11.00)
[2024-01-20 08:02] LABS: Slide Review Reflex No
[2024-01-20 08:05] LABS: Albumin* 3.4 g/dL (3.3-5.0); Chloride* 111 mmol/L (96-114); Potassium* 4.7 mmol/L (3.6-5.1); Sodium* 140 mmol/L (135-149)
[2024-01-20 08:07] LABS: Creatinine* 0.6 mg/dL (0.5-1.5); Estimated Glomerular Filt Rate 100 ml/min
[2024-01-20 08:08] LABS: Alanine Aminotransferase* 13 U/L (4-50); Alkaline Phosphatase* 425 U/L (40-150); Anion Gap 2 mEq/L (7-15); Aspartate Amino Transferase* 29 U/L (12-35); Blood Urea Nitrogen* 23 mg/dL (7-30); Carbon Dioxide* 27 mmol/L (20-32); Glucose* 109 mg/dL (60-115); Total Protein* 5.9 g/dL (6.0-8.3)
[2024-01-20 08:09] LABS: Calcium* 8.2 mg/dL (8.4-10.6)
[2024-01-20] MEDS: DENOSUMAB 120 MG inj SUBCUT (09:59)
[2024-01-20] MEDS: HEPARIN 500 UNIT/5 ML SYRINGE IVF (11:08)
[2024-01-20] MEDS: SODIUM CHLORIDE 0.9 % (FLUSH) 10 ML SYRINGE IVF (11:08)
[2024-02-10 13:35] LABS: Hematocrit 27.3 % (37.0-53.0); Hemoglobin* 8.4 gm/dL (13.5-17.5); Immature Granulocytes Abs Auto 0.34 K/uL (0.00-0.30); Immature Granulocytes Pct Auto 7.3 %; Lymphocytes Percent Auto 7.1 % (20-44); Mean Corpuscular HGB Conc 31 gm/dL (32-36); Mean Corpuscular Hemoglobin 26 pg (26-34); Mean Corpuscular Volume 83 fL (80-100); Monocytes Percent Auto 6.9 % (0.0-11.0); Neutrophils Percent Auto 78.7 % (42.0-72.0); Platelet Count* 123 K/uL (140-440); RDW Coefficient of Variation % 17.6 % (11.5-15.5); Red Blood Count 3.29 m/uL (4.30-5.90); White Blood Count* 4.66 K/uL (4.50-11.00)
[2024-02-10 13:40] LABS: Slide Review Reflex No
[2024-02-10 13:44] VITALS: BP 117/72; PULSE 102; RESP 14; TEMP 36.1
[2024-02-10 13:48] VITALS: BP 125/73; PULSE 110
[2024-02-10 13:54] LABS: Albumin* 3.1 g/dL (3.3-5.0); Chloride* 106 mmol/L (96-114); Potassium* 5.2 mmol/L (3.6-5.1); Sodium* 135 mmol/L (135-149)
[2024-02-10 13:56] LABS: Anion Gap 8 mEq/L (7-15); Bilirubin Total* 0.5 mg/dL (0.1-1.5); Carbon Dioxide* 21 mmol/L (20-32); Creatinine* 0.6 mg/dL (0.5-1.5); Estimated Glomerular Filt Rate 100 ml/min
[2024-02-10 13:57] LABS: Alanine Aminotransferase* 28 U/L (4-50); Alkaline Phosphatase* 452 U/L (40-150); Aspartate Amino Transferase* 49 U/L (12-35); Blood Urea Nitrogen* 28 mg/dL (7-30); Calcium* 6.8 mg/dL (8.4-10.6); Glucose* 136 mg/dL (60-115); Total Protein* 5.7 g/dL (6.0-8.3)
[2024-02-10 14:45] LABS: Phosphorus* 4.1 mg/dL (2.5-4.5)
[2024-02-10 14:58] LABS: PTH Intact* 314.2 pg/mL (14.2-75.2)
[2024-02-10 15:02] LABS: Vitamin D 25 Hydroxy* 38 ng/mL (30-80)
[2024-02-10 16:32] LABS: Ionized Calcium* 0.85 mmol/L (1.11-1.30)
[2024-02-10 17:04] LABS: SARS PCR* Negative SARS-CoV-2 (Negative)
[2024-02-12 12:02] VITALS: BP 130/75; PULSE 85; TEMP 35.9; O2SAT 100
[2024-02-12 12:04] VITALS: BP 130/75; PULSE 85; TEMP 35.9; O2SAT 100
[2024-02-12 12:25] LABS: Ionized Calcium* 1.01 mmol/L (1.11-1.30)
[2024-02-12 12:32] LABS: Eosinophils Absolute Auto 0.01 K/uL (0.00-0.50); Eosinophils Percent Auto 0.2 % (0.0-7.0); Hematocrit 24.8 % (37.0-53.0); Immature Granulocytes Abs Auto 0.29 K/uL (0.00-0.30); Immature Granulocytes Pct Auto 6.3 %; Lymphocytes Percent Auto 8.4 % (20-44); Mean Corpuscular HGB Conc 30 gm/dL (32-36); Mean Corpuscular Hemoglobin 25 pg (26-34); Mean Corpuscular Volume 83 fL (80-100); Monocytes Percent Auto 9.3 % (0.0-11.0); Neutrophils Percent Auto 75.8 % (42.0-72.0); Platelet Count* 107 K/uL (140-440); RDW Coefficient of Variation % 17.7 % (11.5-15.5); White Blood Count* 4.62 K/uL (4.50-11.00)
[2024-02-12 12:47] LABS: Hemoglobin* 7.5 gm/dL (13.5-17.5)
[2024-02-12 12:54] LABS: Chloride* 106 mmol/L (96-114); Sodium* 134 mmol/L (135-149)
[2024-02-12 12:57] LABS: Anion Gap 8 mEq/L (7-15); Blood Urea Nitrogen* 24 mg/dL (7-30); Calcium* 7.5 mg/dL (8.4-10.6); Carbon Dioxide* 20 mmol/L (20-32); Creatinine* 0.5 mg/dL (0.5-1.5); Estimated Glomerular Filt Rate 106 ml/min; Glucose* 137 mg/dL (60-115)
[2024-02-12 13:16] LABS: Slide Review Reflex No
[2024-02-13 13:18] VITALS: BP 107/56; PULSE 99; RESP 18; TEMP 36.1; O2SAT 97
[2024-02-13 13:37] VITALS: BP 128/65; PULSE 90; RESP 16; TEMP 35.9; O2SAT 97
[2024-02-13 14:15] VITALS: BP 102/67; PULSE 86; RESP 16; TEMP 35.8; O2SAT 98
[2024-02-13 15:13] VITALS: BP 115/61; PULSE 75; RESP 16; TEMP 35.9; O2SAT 97
[2024-02-13 15:22] VITALS: BP 115/64; PULSE 91; RESP 16; TEMP 35.7; O2SAT 100
[2024-02-14 07:45] VITALS: BP 104/63; PULSE 92; RESP 16; TEMP 35.7; O2SAT 98
[2024-02-14] MEDS: HEPARIN 500 UNIT/5 ML SYRINGE IVF (07:47)
[2024-02-14] MEDS: SODIUM CHLORIDE 0.9 % (FLUSH) 10 ML SYRINGE IVF (07:47)
[2024-02-14 07:58] LABS: Ionized Calcium* 0.99 mmol/L (1.11-1.30)
[2024-02-14 08:23] LABS: Phosphorus* 3.8 mg/dL (2.5-4.5)
--- NOTE | 2024-02-14 12:20 | ONC.NURNOTE ---
Pt here for labs (ionized calcium, mag, and phosphorus). Labs reviewed by Abigail Stroud APRN. Pt instructed to continue taking calcium carbonate 1000mg QID and Vit D 50mcg daily, pt states he has been taking this. Pt scheduled to come in on 02/18/24 for labs and virtual visit with Dr. Kaiser. Pt verbalized understanding of plan of care.
[2024-02-18 09:03] LABS: Ionized Calcium* 0.83 mmol/L (1.11-1.30)
[2024-02-18 09:05] LABS: Basophils Percent Auto 0.2 % (0.0-3.0); Hematocrit 23.9 % (37.0-53.0); Immature Granulocytes Pct Auto 6.9 %; Lymphocytes Percent Auto 7.3 % (20-44); Mean Corpuscular HGB Conc 31 gm/dL (32-36); Mean Corpuscular Hemoglobin 25 pg (26-34); Mean Corpuscular Volume 83 fL (80-100); Neutrophils Percent Auto 75.6 % (42.0-72.0); Platelet Count* 103 K/uL (140-440); RDW Coefficient of Variation % 18.4 % (11.5-15.5); Red Blood Count 2.88 m/uL (4.30-5.90); White Blood Count* 4.22 K/uL (4.50-11.00)
[2024-02-18 09:09] LABS: Hemoglobin* 7.3 gm/dL (13.5-17.5); Slide Review Reflex No
[2024-02-18 09:22] LABS: Albumin* 2.7 g/dL (3.3-5.0); Chloride* 106 mmol/L (96-114)
[2024-02-18 09:23] LABS: Potassium* 4.8 mmol/L (3.6-5.1); Sodium* 135 mmol/L (135-149)
[2024-02-18 09:25] LABS: Alkaline Phosphatase* 499 U/L (40-150); Anion Gap 5 mEq/L (7-15); Aspartate Amino Transferase* 46 U/L (12-35); Bilirubin Total* 0.6 mg/dL (0.1-1.5); Blood Urea Nitrogen* 25 mg/dL (7-30); Carbon Dioxide* 24 mmol/L (20-32); Creatinine* 0.5 mg/dL (0.5-1.5); Estimated Glomerular Filt Rate 106 ml/min; Total Protein* 4.9 g/dL (6.0-8.3)
[2024-02-18 09:26] LABS: Alanine Aminotransferase* 23 U/L (4-50); Glucose* 108 mg/dL (60-115)
[2024-02-18 09:37] LABS: Calcium* 5.8 mg/dL (8.4-10.6)
[2024-02-18 10:11] LABS: PSA Diagnostic* > 100.00 ng/mL (0.10-4.00)
[2024-02-18] MEDS: HEPARIN 500 UNIT/5 ML SYRINGE IVF (10:30)
[2024-02-18] MEDS: SODIUM CHLORIDE 0.9 % (FLUSH) 10 ML SYRINGE IVF (10:30)
[2024-03-02] MEDS: SODIUM CHLORIDE 0.9 % (FLUSH) 10 ML SYRINGE IVF (12:04)
[2024-03-02] MEDS: HEPARIN 500 UNIT/5 ML SYRINGE IVF (12:04)
[2024-03-02 12:20] LABS: Chloride* 104 mmol/L (96-114); Sodium* 132 mmol/L (135-149)
[2024-03-02 12:21] LABS: Potassium* 4.5 mmol/L (3.6-5.1)
[2024-03-02 12:23] LABS: Alanine Aminotransferase* 28 U/L (4-50); Alkaline Phosphatase* 589 U/L (40-150); Anion Gap 4 mEq/L (7-15); Aspartate Amino Transferase* 68 U/L (12-35); Bilirubin Total* 0.7 mg/dL (0.1-1.5); Blood Urea Nitrogen* 18 mg/dL (7-30); Carbon Dioxide* 24 mmol/L (20-32); Creatinine* 0.6 mg/dL (0.5-1.5); Estimated Glomerular Filt Rate 100 ml/min; Total Protein* 5.4 g/dL (6.0-8.3)
[2024-03-02 12:24] LABS: Calcium* 6.3 mg/dL (8.4-10.6); Glucose* 160 mg/dL (60-115)
[2024-03-02 13:07] LABS: Eosinophils Absolute Auto 0.01 K/uL (0.00-0.50); Eosinophils Percent Auto 0.2 % (0.0-7.0); Hematocrit 23.1 % (37.0-53.0); Immature Granulocytes Abs Auto 0.09 K/uL (0.00-0.30); Immature Granulocytes Pct Auto 1.5 %; Lymphocytes Percent Auto 4.5 % (20-44); Mean Corpuscular HGB Conc 31 gm/dL (32-36); Mean Corpuscular Hemoglobin 27 pg (26-34); Mean Corpuscular Volume 88 fL (80-100); Monocytes Percent Auto 10.6 % (0.0-11.0); Neutrophils Percent Auto 83.2 % (42.0-72.0); Platelet Count* 76 K/uL (140-440); RDW Coefficient of Variation % 18.3 % (11.5-15.5); Red Blood Count 2.64 m/uL (4.30-5.90); White Blood Count* 6.06 K/uL (4.50-11.00)
[2024-03-02 13:10] LABS: Hemoglobin* 7.2 gm/dL (13.5-17.5); Slide Review Reflex Yes
[2024-03-02 13:29] LABS: Slide Review Acceptable Review (Acceptable)
[2024-03-03] VITALS (10 sets, daily range): BP systolic 116–140; BP diastolic 65–83; PULSE 79–100; RESP 16–18; TEMP 36.2–37.2; O2SAT 96–100
[2024-03-03] MEDS: HEPARIN 500 UNIT/5 ML SYRINGE IVF (14:10)
[2024-03-03] MEDS: SODIUM CHLORIDE 0.9 % (FLUSH) 10 ML SYRINGE IVF (14:10)
[2024-03-03] MEDS: CALCIUM GLUC 1,000MG/50 ML 1,000 MG/50 ML BAG 100 MG IVPB (14:24)
--- NOTE | 2024-03-04 15:05 | ONC.NURNOTE ---
Addendum entered by Parisa Pickard RN 03/05/24 07:49: Fentanyl patch 72hr 25mcg/hr approved. Auth # [id number]. Original Note: PA for fentanyl patch submitted to cover my meds.
--- NOTE | 2024-03-05 11:18 | URNOTE ---
Prior auth is not required for Joey ([id number]). Pt has medicare/ [place]. services are based on medical necessity and follow medicare guidelines.
[2024-03-10 09:18] LABS: Basophils Absolute Auto 0.02 K/uL (0.00-0.30); Basophils Percent Auto 0.3 % (0.0-3.0); Eosinophils Absolute Auto 0.02 K/uL (0.00-0.50); Eosinophils Percent Auto 0.3 % (0.0-7.0); Hematocrit 27.8 % (37.0-53.0); Hemoglobin* 8.7 gm/dL (13.5-17.5); Immature Granulocytes Abs Auto 0.39 K/uL (0.00-0.30); Immature Granulocytes Pct Auto 5.8 %; Lymphocytes Percent Auto 4.9 % (20-44); Mean Corpuscular HGB Conc 31 gm/dL (32-36); Mean Corpuscular Hemoglobin 27 pg (26-34); Mean Corpuscular Volume 86 fL (80-100); Monocytes Percent Auto 7.7 % (0.0-11.0); Platelet Count* 65 K/uL (140-440); RDW Coefficient of Variation % 18.2 % (11.5-15.5); Red Blood Count 3.25 m/uL (4.30-5.90); White Blood Count* 6.77 K/uL (4.50-11.00)
[2024-03-10 09:48] LABS: Chloride* 102 mmol/L (96-114); Slide Review Reflex Yes
[2024-03-10 09:49] LABS: Potassium* 4.9 mmol/L (3.6-5.1); Sodium* 132 mmol/L (135-149)
[2024-03-10 09:51] LABS: Anion Gap 6 mEq/L (7-15); Aspartate Amino Transferase* 33 U/L (12-35); Bilirubin Total* 0.8 mg/dL (0.1-1.5); Carbon Dioxide* 24 mmol/L (20-32); Creatinine* 0.6 mg/dL (0.5-1.5); Est. Creatinine Clearance* 68.98; Estimated Glomerular Filt Rate 100 ml/min; Total Protein* 5.8 g/dL (6.0-8.3)
[2024-03-10 09:52] LABS: Alanine Aminotransferase* 40 U/L (4-50); Alkaline Phosphatase* 655 U/L (40-150); Blood Urea Nitrogen* 24 mg/dL (7-30); Calcium* 6.2 mg/dL (8.4-10.6); Glucose* 143 mg/dL (60-115)
[2024-03-10 09:53] LABS: Calcium* 6.2 mg/dL (8.4-10.6)
[2024-03-10 10:01] LABS: Slide Review Acceptable Review (Acceptable)
--- NOTE | 2024-03-10 13:10 | PC.NURSE ---
Pt present at [facility] for labs today. Blood drawn per protocol. Pt left [facility]. Reviewed lab results with Dr. Kaiser. Called pt with results and plan to proceed with Keytruda infusion tomorrow in addition to a calcium infusion. Pt verbalized agreement and understanding.
--- NOTE | 2024-03-10 20:26 | ED.NURSE ---
Patient called with questions about an antibiotic prescription from [facility]. Chart accessed looking for note/rx in patient's chart.
[2024-03-11 09:07] VITALS: BP 128/75; PULSE 124; RESP 22; TEMP 36.7; O2SAT 98
[2024-03-11] MEDS: SODIUM CHLORIDE 0.9 % (FLUSH) 10 ML SYRINGE IVF ×2 (10:18→11:42)
[2024-03-11] MEDS: CALCIUM GLUC 1,000MG/50 ML 1,000 MG/50 ML BAG 100 MG IVPB (10:20)
[2024-03-11] MEDS: 0.9 % SODIUM CHLORIDE 500 ML 500 ML IV (10:55)
[2024-03-11] MEDS: HEPARIN 500 UNIT/5 ML SYRINGE IVF (11:43)
--- NOTE | 2024-03-11 14:04 | ONC.NURNOTE ---
Patient in clinic today for Calcium Gluconate infusion and to start 1st Keytruda. On assessment patient's friend Paulette reports that he had a fever last night that got to 102.4. She reports she called Urology and they told her to monitor at home and to go to the ER if his fever went above 103, they also sent a prescription for antibiotics into the [facility] pharmacy. Paulette reports that Solis was up most of the night and did not sleep well. On arrival today patient did not have a fever. Patient reports that he does not feel as good as he did yesterday, he states he is miserable. He states he has less energy, it is harder to get up a walk around, he was able to walk into the infusion center yesterday but had to use a wheelchair today. He also reports he is feeling more SOB today and overall fatigued. His urine in his Mccann bag is a dark yellow-gold color. He reports he has little appetite and did not do well with drinking fluids yesterday. RN had Felicia Smiley RN look at patient's urine as she saw patient yesterday. Reports it looks similar to day before. RN spoke with Abigail Guillen who wants to hold patient's Keytruda today and have him start on the abx ordered by Urology. Patient to still get his Calcium Gluconate today and adding 500 cc of NS. RN spoke with pharmacy who is unable to fill patient's abx prescription. Dr. Kaiser stopped in to see patient and is ok with ordering the abx Urology prescribed. RN obtained prescription from pharmacy and gave to Dr. Kaiser to send to [facility] per patients request. While patient was getting IVF RN noticed that his urine bag was starting to become more red. Patient was starting to have some bleeding. Per Paulette and patient this sometimes happens and they will irrigate his catheter when they get home. On DC RN educated patient and Paulette that he needed to continue watching for s/s of infection especially a UTI. Advised them that if he develops any back pain, fever or chills, low BP, high HR, or dizziness he needs to be seen in ER [facility] to rule out infection. RN also stated that if the blood in his urine bag continues patient needs to call Urology and be seen in the ER as well. RN gave patient a new digital thermometer to take home. Plan for labs and possible Keytruda on Saturday 03/17.Paulette and patient verbalized understanding and are agreeable to the plan.
== END 2024-03-15 23:59 | disposition home or self-care (01) ==
LOC: CCIC 09:00
PROVIDERS: Clinical Nurse Specialist; Physician Assistant; PCP Family Medicine; Referring Provider Family Medicine; Visit Provider Internal Medicine Hematology & Oncology
DX: C61 Malignant neoplasm of prostate (principal); C79.51 Secondary malignant neoplasm of bone; T45.1X5A Adverse effect of antineoplastic and immunosuppressive drugs, initial encounter
CPT/HCPCS: 36415; 36430; 36591; 80048; 80053; 80076; 82306; 82310; 82330; 83735; 83970; 84100; 84153; 84403; 84443; 85025; 86850; 86900; 86901; 86922; 87635; 93005; 94761; 96361; 96365; 96372; 96375; 96401; 99211; 99214; 99215; 99284; 99285; G0378; G0463; A9270; J0613; J0897; J1642; J1650; J2270; J7030; J9217; P9016

== ENCOUNTER 2024-03-11 13:37 | Inpatient (IN) | payer MEDICARE, BC, SELFPAY ==
[2024-03-11] VITALS (15 sets, daily range): BP systolic 101–155; BP diastolic 69–93; PULSE 97–127; RESP 18; TEMP 36.2–36.7; O2SAT 93–99; BMI 23.9; BMI 23.2
--- NOTE | 2024-03-11 13:59 | ED_ITS ---
HPI - Male Genitourinary General Time Seen by Provider: 13:59 Date Seen: 03/11/24 Chief complaint: Urogenital Problems, Male Stated complaint: Plugged catheter Time Seen by Provider: 03/11/24 13:38 Source: patient and RN notes reviewed Mode of arrival: ambulatory Limitations: no limitations History of Present Illness HPI Narrative: This 78-year-old male with known underlying metastatic prostate cancer and indwelling Mccann catheter is coming to the ER with concerns of poorly functioning flow from the Mccann catheter and bladder spasms. He is having lower abdominal pain that he feels consistent is bladder spasms, started noticing poor output of urine this morning. He has stage IV prostate cancer, we are not to remove the catheter here. He has tried flushing at home. This did not relieve his symptoms. I did call his pharmacy, [facility], he recently got placed on a fentanyl patch and is on hyoscyamine 0.125 mg which he is taking for bladder spasms. He is requesting some now. Did confer with our pharmacy already and B&O suppositories are no longer being made, we do not have any in pharmacy. He is followed by Urology through [facility]. He came from [facility] where he did have IV fluids and IV calcium for hypocalcemia. His calcium level yesterday was 6.2. His alkaline phosphatase is rising in review of his labs, as is his PSA. Hemoglobin yesterday was 8.7, white blood count was normal at 6770. He has some clarence blood in the bottom of his urinary collection bag. His last transfusion was March 03, 2 units of packed red blood cells. Patient had been doing a radio sensitive type treatment at [facility] but sounds like he maybe switching to Keytruda from the last oncology note. Related Data Home Medications ?Medication ?Instructions ?Recorded ?Confirmed rosuvastatin 5 mg tablet 5 mg PO DAILY 03/28/22 03/11/24 tamsulosin 0.4 mg capsule 0.8 mg PO DAILY 03/28/22 03/11/24 cyanocobalamin (vitamin B-12) 500 mcg PO Q3D 01/31/23 03/11/24 1,000 mcg capsule leuprolide acetate (6 month) 45 mg 45 mg IM [id number] 01/31/23 03/04/24 intramuscular syringe kit (Lupron Depot) potassium chloride 20 mEq 40 meq PO BID 10/21/23 03/11/24 tablet,extended release calcitriol 0.5 mcg capsule 0.5 mcg PO QDAY 03/02/24 03/11/24 calcium carbonate 2,000 mg PO TID 03/02/24 03/11/24 magnesium oxide 400 mg (241.3 mg 400 mg PO BID 03/02/24 03/11/24 magnesium) tablet Previous Rx's ?Medication ?Instructions ?Recorded oxycodone-acetaminophen 5 mg-325 1 tab PO Q6H PRN pain #60 tabs 02/05/24 mg tablet (Percocet) cholecalciferol (vitamin D3) 50 50 mcg PO DAILY #30 caps 02/11/24 mcg (2,000 unit) capsule (Vitamin D3) dronabinol 5 mg capsule 5 mg PO QACDINNER #30 caps 03/04/24 fentanyl 25 mcg/hr transdermal 1 patch transdermal Q72H #5 ea 03/04/24 patch sulfamethoxazole 800 1 tab PO Q12H #20 tabs 03/11/24 mg-trimethoprim 160 mg tablet (Bactrim DS) acetaminophen 325 mg tablet 975 mg (3 x 325 mg) PO Q6H PRN 03/12/24 #100 tabs bisacodyl 10 mg rectal suppository 10 mg IA DAILY PRN constipation 03/12/24 #12 ea bisacodyl 5 mg tablet,delayed 5 mg PO BID 2 days #4 tabs 03/12/24 release bisacodyl 5 mg tablet,delayed 10 mg (2 x 5 mg) PO BID PRN #10 03/12/24 release (Gentle Laxative tabs (bisacodyl)) fentanyl 50 mcg/hr transdermal 1 patch transdermal Q72H #5 ea 03/12/24 patch lorazepam 1 mg tablet 1 mg PO Q4H PRN #30 tabs 03/12/24 morphine concentrate 20 mg/mL oral 20 mg sublingual Q2H PRN #50 mL 03/12/24 syringe (FOR ORAL USE ONLY) ondansetron 8 mg disintegrating 8 mg PO Q8H PRN nausea and 03/12/24 tablet vomiting #20 tabs Allergies Allergy/AdvReac Type Severity Reaction Status Date / Time allopurinol Allergy Intermediate Verified 03/11/24 09:28 [facility] Medical History (Updated 03/23/24 @ 00:01 by Leonor Rolon) Prostate cancer metastatic to bone ?C61 - Malignant neoplasm of prostate (ICD-10) ?C79.51 - Secondary malignant neoplasm of bone (ICD-10) Malnutrition ?E46 - Unspecified protein-calorie malnutrition (ICD-10) Palliative care encounter ?Z51.5 - Encounter for palliative care (ICD-10) Fatigue ?R53.83 - Other fatigue (ICD-10) Anorexia ?R63.0 - Anorexia (ICD-10) Intravenous bisphosphonates causing adverse effect in therapeutic use ?T45.8X5A - Adverse effect of other primarily systemic and hematological agents, initial encounter (ICD-10) Myopathy ?G72.9 - Myopathy, unspecified (ICD-10) 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 - Acquired stenosis of unspecified nasolacrimal duct (ICD-10) Rash in adult ?R21 - Rash and other nonspecific skin eruption (ICD-10) Hypokalemia ?E87.6 - Hypokalemia (ICD-10) Hypocalcemia ?E83.51 - Hypocalcemia (ICD-10) Osseous metastasis ?C79.51 - Secondary malignant neoplasm of bone (ICD-10) Androgen deprivation therapy ?Z79.818 - intermediate (current) use of other agents affecting estrogen receptors and estrogen levels (ICD-10) S/P radiation therapy ?Z92.3 - Personal history of irradiation (ICD-10) Health care directive on file ?Z78.9 - Other specified health status (ICD-10) Adenocarcinoma of prostate ?C61 - Malignant neoplasm of prostate (ICD-10) Social History (Updated 03/11/24 @ 17:23 by Fredis Vaughan MD) Narrative: He lives in [place]. He is . His closest contact, primary support and healthcare power of criminal attorney is Paulette Russo, his ex- and current friend. Nonsmoker. Former moderate alcohol consumption but none for several months. He Lives Alone What is your current living situation?: I presently have a place to live Problems where you live: no known problems Problems where you live details: n/a In the past 12 months, utilities in danger of being shut off: no In past 12 months, lack of transportation kept you from medical appts, meetings, work, or getting things needed for daily living: no In the past 12 mos, have been you worried that your food would run out before you had money to buy more?: never true In the past 12 mos, the food you bought just didn't last and you didn't have money to buy more?: never true Highest level of school completed/degree received: Master's degree Smoking Status: Never smoker Do you use any of these nicotine containing products: None How often do you have a drink containing alcohol: never AUDIT-C Alcohol total score: 0 Non-prescribed substance use: denies use Caffeine: Yes How often does anyone, including family, friends and others, physically hurt you : never How often does anyone, including family, friends and others, insult or talk down to you: never How often does anyone, including family, friends and others, threaten you with harm: never How often does anyone, including family, friends and others, scream or curse at you: never service: No Exam Const: Vital Signs, click to edit/add: Vital Signs - 24 hr 03/11/24 13:41 03/11/24 14:30 03/11/24 14:45 Temperature 97.2 F L Pulse Rate 109 H 97 Pulse Rate [Pulse Oximeter] 127 H Respiratory Rate 18 Blood Pressure [Ri ght Upper Arm] 101/69 Pulse Oximetry 99 97 96 Oxygen Delivery Me thod Room Air 03/11/24 14:53 03/11/24 15:00 03/11/24 15:15 Temperature Pulse Rate 106 H 109 H Pulse Rate [Pulse Oximeter] Respiratory Rate Blood Pressure [Ri ght Upper Arm] Pulse Oximetry 96 96 98 Oxygen Delivery Me thod 03/11/24 15:30 03/11/24 15:45 03/11/24 16:00 Temperature Pulse Rate 106 H 108 H 105 H Pulse Rate [Pulse Oximeter] Respiratory Rate Blood Pressure [Ri ght Upper Arm] Pulse Oximetry 98 97 98 Oxygen Delivery Me thod 03/11/24 16:15 03/11/24 16:27 Temperature Pulse Rate 112 H Pulse Rate [Pulse Oximeter] 126 H Respiratory Rate Blood Pressure [Ri ght Upper Arm] 155/86 H Pulse Oximetry 99 93 Oxygen Delivery Me thod Room Air Course Course ED Course: We will provide a dose of morphine as well as his antispasmodic. He will be on pulse oximetry. I do think we should recheck his electrolytes and his calcium just ensure that he does not need more calcium. Electrolyte changes could be compounding spasms. Reevaluation(s) Time of Reevaluation #1: 14:28 Reevaluation #1: Nursing staff as flushed, is getting more output in the Mccann, is blood tinged but does not look like clarence blood anymore. He is feeling less discomfort. He has not received morphine yet but we will still provide that. Did review his last note with his oncologist, they were talking about attempting to remove the Mccann catheter. On discussing with patient, he is having intermittent hematuria. He states he will have days where will be completely clear, the blood really started up again today. My concern is that this is tumor burden that is causing bleeding. There was talk of having the Mccann catheter removed in his last oncology note, I am not sure if that is marie if there is recurrent episodic hematuria. I think he would be a set up for needing another emergent catheterization and the last time required transfer to [facility]. I will see if I can touch base with his urologist Dr. Rodrigues. His pulse is now down to 105 now that he is feeling better. Time of Reevaluation #2: 15:09 Reevaluation #2: Patient's calcium is currently 5.3. Will be ordering another dose of IV calcium for him. He is currently resting. Time of Reevaluation #3: 15:19 Reevaluation #3: Patient was calling out. He did have his call light but had just misplaced it on the bed. I reviewed with him that his calcium was quite low at 5.3, sodium is low 126. He does want to come into the hospital. He states that he is feeling more pressure buildup in his bladder again. I do see more blood concentrated urine looking fluid in his catheter. Will see if nursing staff can flush this again. I have asked staff to try to page the urologist but have not heard back from him. Consultations Consultation #1: Have reviewed with the hospitalist. Dr. Vaughan will see this patient and does accept. Time: 15:27 Consultation #2: Have spoken with Dr. Bass from Urology at [facility]. He did review this patient's case. There is concern that this might be end arteritis obliterans which can be a that complication of radiation. There certainly could be bleeding from prostate cancer into the bladder. Treatment for this if would be hyperbaric chamber Saturday through Saturday for 6-8 weeks. Given this patient's clinical status and functional status, he agrees that patient is likely in need of hospice at this time. Reviewed that the patient had already had Taxotere as he did ask. Did update Dr. Vaughan on my conversation. He stated the patient was asking for more pain management, did order 4 mg IV morphine and per his request 2 mg IV Q 10 minutes p.r.n.. Time: 15:40 Vital Signs Vital signs: Initial Vital Signs Temperature 97.2 F L 03/11/24 13:41 Temperature Source Temporal Artery Scan 03/11/24 13:41 Pulse Rate 127 H 03/11/24 13:41 Respiratory Rate 18 03/11/24 13:41 Blood Pressure 101/69 03/11/24 13:41 Blood Pressure Mean 79 03/11/24 13:41 Blood Pressure Position Sitting 03/11/24 13:41 Pulse Oximetry 99 03/11/24 13:41 Oxygen Delivery Method Room Air 03/11/24 13:41 Vital Signs Temperature 97.2 F L 03/11/24 13:41 Pulse Rate 127 H 03/11/24 13:41 Respiratory Rate 18 03/11/24 13:41 Blood Pressure 101/69 03/11/24 13:41 Pulse Oximetry 99 03/11/24 13:41 Oxygen Delivery Method Room Air 03/11/24 13:41 Temperature 98.2 F 03/13/24 19:31 Pulse Rate 91 03/14/24 09:00 Respiratory Rate 16 03/13/24 19:29 Blood Pressure 122/77 03/12/24 11:00 Pulse Oximetry 97 03/12/24 11:00 Oxygen Delivery Method Room Air 03/12/24 11:00 Medications Administered Medications: Discontinued Medications Generic Name Dose Route Start Last Admin Trade Name Freq PRN Reason Stop Dose Admin Acetaminophen 975 mg 03/12/24 12:32 03/13/24 17:04 Acetaminophen 325 Mg Tablet PO 650 mg Q6H PRN Administration Bisacodyl 10 mg 03/11/24 17:22 03/14/24 22:[address] PO 10 mg BID PRN Administration Calcitriol 0.5 mcg 03/11/24 17:19 03/12/24 09:37 Calcitriol 0.25 Mcg Capsule PO 0.5 mcg DAILY STEPHANIE Administration Calcium Carbonate 2,000 mg 03/11/24 21:00 03/11/24 20:48 Calcium Carbonate 500 Mg Tablet PO 2,000 mg TID STEPHANIE Administration Calcium Carbonate 2,000 mg 03/12/24 09:00 03/12/24 09:37 Calcium Carbonate 500 Mg Tablet PO 2,000 mg QID STEPHANIE Administration Cyanocobalamin 500 mcg 03/11/24 17:30 03/11/24 17:50 Cyanocobalamin (Vitamin B-12) 500 Mcg Tablet PO Not Given Q3D STEPHANIE Fentanyl 1 patch 03/11/24 17:00 03/14/24 16:47 Fentanyl 50 Mcg/Hr Patch TRANSDERMA 1 patch Q72H STEPHANIE Administration Hydroxyzine Pamoate 25 mg 03/13/24 08:15 03/14/24 22:05 Hydroxyzine Pamoate 25 Mg Capsule PO 25 mg Q4H PRN Administration pain, anxiety Hyoscyamine 0.125 mg 03/11/24 14:06 03/11/24 14:24 Hyoscyamine Sulfate 0.125 Mg Tab SUBLINGUAL 0.125 mg Q4H PRN Administration Calcium Gluconate/Sodium Chloride 1,000 mg in 50 mls @ 100 mls/hr 03/11/24 15:09 03/11/24 16:09 Calcium Gluc 1,000mg/50 Ml IVPB 03/11/24 15:38 Infused ONCE ONE Infusion Sodium Chloride 1,000 mls @ 500 mls/hr 03/11/24 15:20 03/13/24 09:16 0.9 % Sodium Chloride 1000 Ml IV 03/11/24 17:19 Infused .Q2H STEPHANIE Infusion Calcium Gluconate/Sodium Chloride 1,000 mg in 50 mls @ 100 mls/hr 03/11/24 16:57 03/13/24 09:17 Calcium Gluc 1,000mg/50 Ml IVPB 03/11/24 17:26 Infused ONCE ONE Infusion Calcium Gluconate/Sodium Chloride 1,000 mg in 50 mls @ 100 mls/hr 03/11/24 22:27 03/13/24 09:17 Calcium Gluc 1,000mg/50 Ml IVPB 03/11/24 22:56 Infused ONCE ONE Infusion Calcium Gluconate/Sodium Chloride 1,000 mg in 50 mls @ 100 mls/hr 03/12/24 02:00 03/13/24 09:17 Calcium Gluc 1,000mg/50 Ml IVPB 03/12/24 02:29 Infused ONCE ONE Infusion Calcium Gluconate/Sodium Chloride 1,000 mg in 50 mls @ 100 mls/hr 03/12/24 08:00 03/13/24 09:17 Calcium Gluc 1,000mg/50 Ml IVPB 03/12/24 08:29 Infused ONCE ONE Infusion Lidocaine 1 patch 03/14/24 15:45 03/14/24 20:08 Lidocaine 5% Patch TRANSDERMA 03/14/24 20:00 1 patch Q24H STEPHANIE Administration Protocol Lidocaine 1 patch 03/15/24 08:00 03/15/24 07:35 Lidocaine 5% Patch TRANSDERMA Not Given Q24H STEPHANIE Protocol Lidocaine/Aluminum/Magnesium/Simeth 15 ml 03/13/24 17:33 03/14/24 18:31 Mag Hydrox/Aluminum Hyd/Simeth 30 Ml Oral.Susp PO 15 ml QID PRN Administration Indigestion Lorazepam 0.5 - 2 mg 03/12/24 12:32 03/15/24 01:21 Lorazepam 1 Mg Tablet PO 1 mg Q1H PRN Administration Magnesium Oxide 400 mg 03/11/24 21:00 03/12/24 09:46 Magnesium Oxide 400 Mg Tablet PO 400 mg BID STEPHANIE Administration Morphine Sulfate 2 mg 03/11/24 14:03 03/11/24 14:23 Morphine 2 Mg/Ml Inj IVP 03/11/24 14:04 2 mg ONCE ONE Administration Morphine Sulfate 4 mg 03/11/24 16:01 03/11/24 16:09 Morphine 4 Mg/Ml Inj IVP 03/11/24 16:02 4 mg ONCE ONE Administration Morphine Sulfate 2 mg 03/11/24 16:01 03/12/24 09:38 Morphine 2 Mg/Ml Inj IVP 2 mg Q10M PRN Administration Morphine Sulfate 2 - 4 mg 03/11/24 16:58 03/14/24 19:47 Morphine 2 Mg/Ml Inj IVP 2 mg Q10M PRN Administration Morphine Sulfate 10 - 20 mg 03/11/24 16:59 03/13/24 23:34 Morphine 10 Mg/0.5 Ml Oral Soln PO 10 mg Q1H PRN Administration (Dronabinol 5 Mg 5 mg 03/11/24 17:15 08/10/24 18:27 Capsule) PO Not Given QPM STEPHANIE Ondansetron HCl 4 - 8 mg 03/12/24 12:32 03/12/24 20:08 Ondansetron Odt 4 Mg Tab PO 4 mg Q4H PRN Administration nausea/vomiting Oxycodone HCl 5 - 15 mg 03/12/24 12:32 03/14/24 22:06 Oxycodone 5 Mg Tablet PO 10 mg Q1H PRN Administration Pain Potassium Bicarbonate 25 meq 03/11/24 21:00 03/12/24 09:37 Potassium Bicarb 25 Meq Effervescent Tab PO 25 meq BID STEPHANIE Administration Sodium Chloride 5 ml 03/11/24 21:00 03/14/24 20:00 Sodium Chloride 0.9 % (Flush) 10 Ml Syringe IVF 5 ml BID STEPHANIE Administration Sodium Chloride 5 ml 03/11/24 21:00 03/13/24 09:18 Sodium Chloride 0.9 % (Flush) 10 Ml Syringe IVF Not Given BID STEPHANIE Vitamin D 50 mcg 03/12/24 09:00 03/12/24 09:37 Cholecalciferol (Vitamin D3) 25 Mcg Tablet (1000 Unit) PO 50 mcg DAILY STEPHANIE Administration MDM - Male Genitourinary Lab Data Attestation: I reviewed the patient's lab results. Labs: Lab Results 03/11/24 03/11/24 03/11/24 Range/Units 14:30 14:37 15:29 WBC 10.67 (4.50-11.00) K/uL RBC 3.01 L (4.30-5.90) m/uL Hgb 8.1 L (13.5-17.5) gm/dL Hct 25.0 L (37.0-53.0) % MCV 83 (80-100) fL MCH 27 (26-34) pg MCHC 32 (32-36) gm/dL RDW Coeff of Mayco 18.1 H (11.5-15.5) % Plt Count 53 L (140-440) K/uL Neut % (Auto) 88.7 H (42.0-72.0) % Lymph % (Auto) 1.5 L (20-44) % Latimer % (Auto) 7.6 (0.0-11.0) % Eos % (Auto) 0.1 (0.0-7.0) % Baso % (Auto) 0.0 (0.0-3.0) % Neut # (Auto) 9.50 H (1.7-7.0) K/uL Lymph # (Auto) 0.20 L (0.90-2.90) K/uL Latimer # (Auto) 0.80 (0.00-0.90) K/UL Eos # (Auto) 0.01 (0.00-0.50) K/uL Baso # (Auto) 0.00 (0.00-0.30) K/uL Abs Immat Gran (auto) 0.22 (0.00-0.30) K/uL Imm/Tot Granulo (auto) 2.1 % Diff Slide Review Acceptable Review (Acceptable) Sodium 126 L (135-149) mmol/L Potassium 4.6 (3.6-5.1) mmol/L Chloride 98 (96-114) mmol/L Carbon Dioxide 19 L (20-32) mmol/L Anion Gap 9 (7-15) mEq/L BUN 26 (7-30) mg/dL Creatinine 0.8 (0.5-1.5) mg/dL Estimated Creat Clear 68.98 Estimated GFR 92 ml/min Glucose 187 H (60-115) mg/dL Calcium 5.3 L* (8.4-10.6) mg/dL Phosphorus 3.3 (2.5-4.5) mg/dL Magnesium 1.9 (1.5-2.6) mg/dL Lab Acknowledgement Test Added Discharge Plan Discharge Clinical Impression: Hypocalcemia, Prostate cancer metastatic to bone, Hyponatremia, Hematuria Patient Disposition: Admitted As Observation Condition: Critical Activity Level: Up with assist Discharge Diet: Regular
--- OUTSIDE RECORDS SUMMARY | 2024-03-11 14:22 | XMS_ITS | Clinical Summary ---
Author Organization [facility] Address [address] [place] [id number] Care Team Providers Care Investigative Agent Name Role Phone Rivas Torres MD Primary Care Provider [phone]- [phone] Allergies Active Allergy Reactions Criticality Noted Date [...] 3 days 10/22/2022 Active Cholecalciferol 250 MCG (80872 UT) CAPS 01/17/2022 Active lisinopril (ZESTRIL) 20 [...] age to complete this topic Care Teams Investigative Agent Relationship Specialty Start Date End Date Rivas Torres MD PCP - General Family Practice 04/27/19
--- OUTSIDE RECORDS SUMMARY | 2024-03-11 14:22 | XMS_ITS | Referral Summary ---
Author Organization [facility] Address [address] [place] [id number] Care Team Providers Care Water Main Inspector Name Role Phone Rivas Torres MD Primary Care Provider [phone]- [phone] Allergies Active Allergy Reactions Criticality Noted Date [...] 3 days 10/22/2022 Active Cholecalciferol 250 MCG (07730 UT) CAPS 01/17/2022 Active lisinopril (ZESTRIL) 20 [...] of Treatment Not on file Care Teams Water Main Inspector Relationship Specialty Start Date End Date Rivas Torres MD PCP - General Family Practice 04/27/19
--- OUTSIDE RECORDS SUMMARY | 2024-03-11 14:22 | XMS_ITS | Clinical Summary ---
Author Organization [employer] [facility] Address [place], [place] [address] Care Team Providers Care Commercial Singer Name Role Phone Rivas Torres MD Primary Care Provider [phone] [facility] Unavailable [phone] Allergies Active Allergy Reactions Criticality Noted Date Comments Allopurinol Itching 04/26/2017 Medications Medication Sig Dispensed Refills Start Date End Date Status leuprolide, 6 month, (LUPRON DEPOT, 6 MONTH,) 45 mg injection Inject 45 mg intramuscular EVERY 6 MONTHS. 0 5 Active rosuvastatin (CRESTOR) 5 mg tabletIndication s:Hyperlipidemia LDL goal <130 Take 1 Tablet (5 mg) by mouth at bedtime. 90 Tablet 3 3 Active tamsulosin (FLOMAX) 0.4 mg capsuleIndicatio ns:Benign prostatic hyperplasia with weak urinary stream Take 2 Capsules (0.8 mg) by mouth once daily after a meal. 180 Capsule 3 3 Active potassium chloride (KLOR-CON M20) 20 mEq extended-release tablet (part/cryst)Darshana cations:Hypokale nixon Take 2 Tablets (40 mEq) by mouth two times daily with meals. 360 Tablet 4 4 Active oxyCODONE-acetam inophen (PERCOCET) 5-325 mg per tabletIndication s:Post-operative state Take 1-2 Tablets by mouth every 6 hours if needed for Pain. Max acetaminophen dose: 4000mg in 24 hrs. 6 Tablet 4 Active acetaminophen (TYLENOL) 325 mg tabletIndication s:Gross hematuria,Prosta te cancer (HC),Anemia, blood loss,Bladder outlet obstruction Take 1-2 Tablets (325-650 mg) by mouth every 4 hours if needed for Pain. Max acetaminophen dose: 4000mg in 24 hrs. 4 Active magnesium oxide (MAG-OX 400) 400 mg tabletIndication s:Hypomagnesemia Take 1 Tablet (400 mg) by mouth two times daily. 60 Tablet 4 Active polyethylene glycoL (MIRALAX) 17 gram/scoop powderIndication s:Constipation, unspecified constipation type Take 1 scoop (17 g) by mouth or nasogastric tube once daily if needed for Constipation. 238 g 4 Active WalkerIndication s:Gross hematuria Walker with front wheels for home use. As needed, no need to provide prior to DC. 1 Each 4 Active calcitrioL 0.5 mcg capsuleIndicatio ns:Hypocalcemia Take 1 Capsule (0.5 mcg) by mouth twice daily. 60 Capsule 3 4 Active ergocalciferol (,vitamin D2,) 50,000 unit capsuleIndicatio ns:Vitamin D deficiency Take 1 Capsule (50,000 units) by mouth once weekly. 15 Capsule 3 4 Active calcium carbonate (OS-ERNA 500) 500 mg calcium (1,250 mg) tabletIndication s:Hypocalcemia Take 6 Tablets (3,000 mg) by mouth three times daily with meals. 600 Tablet 4 Active droNABinol (MARINOL) 5 mg capsuleIndicatio ns:Cancer cachexia (HC) Take 1 Capsule (5 mg) by mouth three times daily before meals. 90 Capsule 4 Active durable medical equipment (DME)Indications :Prostate cancer (HC) Alternating pressure pad 1 Each 4 Active ASPIRIN 81 MG TAB take 1 tablet (81mg) by oral route once daily 0 8 02/18/20 24 Discontinued(* Patient states no longer taking) medication order composer Calcium 1,200 0 2 [...] change per medication history (E-cancel not sent)) meloxicam 15 mg tabletIndication s:Arthritis of knee TAKE ONE TABLET BY MOUTH ONCE DAILY NEEDED 30 Tablet 3 4 02/18/20 24 Discontinued(* Patient states no longer taking) darolutamide (NUBEQA) 300 mg tablet Take 600 mg by mouth two times daily with meals. 02/18/20 24 Discontinued(* Patient states no longer taking) calcium carbonate (CALCIUM 500 ORAL) Take 1,000 mg by mouth three times daily. 02/23/20 24 Discontinued(* IP Discontinued) cholecalciferol (VITAMIN D3) 2,000 unit capsule Take 2,000 units by mouth once daily. 02/23/20 24 Discontinued(* IP Discontinued) lisinopriL (PRINIVIL; ZESTRIL) 20 mg tablet Take 20 mg by mouth once daily. 02/23/20 24 Discontinued(* IP Discontinued) droNABinol (MARINOL) 5 mg capsuleIndicatio ns:Cancer cachexia (HC) Take 1 Capsule (5 mg) by mouth three times daily before meals. 90 Capsule 4 02/25/20 24 Discontinued(R eorder (E-cancel not sent)) calcium carbonate (OS-ERNA 500) 500 mg calcium (1,250 mg) tabletIndication s:Hypocalcemia Take 6 Tablets (3,000 mg) by mouth three times daily with meals. 600 Tablet 4 03/05/20 24 Discontinued(R eorder (E-cancel not sent)) droNABinol (MARINOL) 5 mg capsuleIndicatio ns:Cancer cachexia (HC) Take 1 Capsule (5 mg) by mouth three times daily before meals. 90 Capsule 4 03/05/20 24 Discontinued(R eorder (E-cancel not sent)) Active Problems Problem Noted Date Diagnosed Date [...] Encounters Date Type Department Care Team Description 03/11/2024 Telephone [facility] [address] [place] [address] Rivas Torres MD Form (Needs lmar-ob-jyed notes ) 03/10/2024 1:30 PM CDT Home Care Visit [facility] [address] [place] [phone] Patricia Armando, PT PT - DISCIPLINE DISCHARGE 03/10/2024 11:00 AM CDT Home Care Visit [facility] [address] [place] [phone] Gala Allen LPN EVAPORATOR HELPER - HOME VISIT 03/10/2024 Telephone [facility] [address] [place] [address] Rivas Torres MD Medication Management (Alternating Pressure Pad/) 03/09/2024 11:00 AM CDT Home Care Visit [facility] [address] [place] [address], [place] [address] Marlene Angeles, OT OT - INITIAL ASSESSMENT 03/06/2024 12:00 PM CDT Home Care Visit [facility] [address] [place] [address], [place] [address] Nicole De La Cruz, SEBASTIAN SN - HOME VISIT 03/06/2024 10:00 AM CDT Home Care Visit [facility] [address] [place] [phone] Roxy Tucker LISW PARIMUTUEL CASHIER - INITIAL ASSESSMENT 03/06/2024 Telephone [facility] [address] [place] [address] Rivas Torres MD Appointment 03/05/2024 Home Care Visit [facility] [address] [place] [address], [place] [address] Patricia Armando, PT PT - MISSED VISIT 03/04/2024 Home Care Visit [facility] [address] [place] [address], [place] [address] Marybel Arreaga, SEBASTIAN CARE COORDINATION 03/04/2024 Home Care Visit [facility] [address] [place] [phone] Marybel Arreaga, SEBASTIAN CARE COORDINATION 03/03/2024 8:30 AM CDT Home Care Visit [facility] [address] [place] [phone] Patricia Armando, PT PT - MISSED VISIT 03/03/2024 8:00 AM CDT Home Care Visit [facility] [address] [place] [phone] Gala Allen LPN EVAPORATOR HELPER - MISSED VISIT 03/03/2024 Home Care Visit [facility] [address] [place] [address] Roxy Tucker LISW PARIMUTUEL CASHIER - CASE COMMUNICATION 02/28/2024 10:00 AM CDT Home Care Visit [facility] [address] [place] [address] Gala Allen, EVAPORATOR HELPER EVAPORATOR HELPER - HOME VISIT 02/27/2024 Home Care Visit [facility] [address] [place] [address] Marybel Arreaga, SEBASTIAN SN - TELEHEALTH VISIT 02/26/2024 3:45 PM CDT Home Care Visit [facility] [address] [place] [address] Patricia Armando, PT PT - INITIAL ASSESSMENT 02/25/2024 2:00 PM CDT Orders Only [facility] [address] [place] [address] Lab, [place] Lab 02/25/2024 1:00 PM CDT Office Visit [facility] [address] [place] [address] Isabella Flynn MD Hospital F/U (weakness, slowly getting strength back. Labs are low.) 02/25/2024 10:00 AM CDT Home Care Visit [facility] [address] [place] [address] Anjana Brady, RN SN - OASIS START OF CARE 02/25/2024 Telephone [facility] [address] [place] [address] Isabella Flynn MD Medication Management (dronabinol (MARINOL) 5 mg capsule) 02/25/2024 Travel 02/25/2024 Plan of Care Documentation [facility] [address] [place] [address] 02/24/2024 Patient Outreach [facility] [address] [facility] [place] [address] Gwendolyn Griffin RN Primary RN Care Management; Hospital F/U (LACE 83) 02/23/2024 Telephone [facility] [address] [facility] [address] [place] [address] Paul Preston MD Follow Up 02/20/2024 1:33 PM CDT Anesthesia Event [facility] [address] [place] [address] Jesus Quiroz CRNA Chau, Chen Thay, MD 02/20/2024 1:22 PM CDT - 02/20/2024 2:35 PM CDT Surgery [facility] [address] [place] [address] Rivas Cook MD CYSTOSCOPY EVACUATION CLOT FULGURATION, RESECTION OF CLOT AND TUMOR 02/18/2024 2:37 PM CDT - 02/23/2024 2:25 PM CDT Hospital Encounter [facility] [address] [place] [address] Tripp Bernabe MD Ahmad, Ashfaq, MD Bowler, Toan Martin MD [facility] Hospitalists Of Scott Garcia MBBS Gross hematuria (Primary Dx); Prostate cancer (HC); Anemia, blood loss; Bladder outlet obstruction; Clot retention of urine; Cancer cachexia (HC); Hypomagnesemia; Constipation, unspecified constipation type; Urethral false passage; Hypocalcemia; Vitamin D deficiency Discharge Disposition: Home Health 02/17/2024 10:32 PM CDT - 02/18/2024 12:24 AM CDT Emergency [facility] [address] [place] [address] John Nj MD Acute urinary retention (Primary Dx) Discharge Disposition: Home Self Care 02/17/2024 Travel 12/26/2023 Orders Only [facility] Scanner 1 scan: (1-Ord) [place], MR LUMBAR SPINE WO/W CON, 12/26/2023 12/11/2023 10:00 AM CDT Orders Only [facility] [address] [place] [address] Lab, [place] Outside Order (Severino Rodrigues) 12/11/2023 Travel 12/10/2023 Nurse Triage [facility] [address] [place] [address] Rivas Torres MD Error-please disregard (opened in error) 12/10/2023 Orders Only [facility] [address] [place] [address] Rivas Torres MD Outside Order (Ordered by Severino Rodrigues ) from Last 3 Months Immunizations Name Administration Dates Next Due COVID-19 vaccine (M. STEVES [employer]-Bio NTech 30mcg/0.3mL) 12YO+ MARIA C-SUCROSE PF, MDV 10/30/2021 COVID-19 vaccine (M. [employer]EVES [employer] NTech 30mcg/0.3mL) PF, MDV 05/24/2021,09/21/2020,08/31/2020 Influenza, High-dose [...] Sign Reading Time Taken Comments Blood Pressure 123/80 03/10/2024 11:15 AM CDT Pulse 90 03/10/2024 11:15 AM CDT Temperature 36.6 ??C (97.8 ??F) 03/10/2024 11:15 AM C DT Respiratory Rate 16 03/10/2024 11:15 AM CDT Oxygen Saturation 98% 03/10/2024 11:15 AM CDT Inhaled Oxygen Concentration - - Weight 83.5 kg (184 lb) 02/25/2024 1:05 PM CDT Height 185.4 cm (6' 1) 02/25/2024 10:40 AM CDT Body Mass Index 24.28 02/25/2024 10:40 AM CDT Plan of Treatment Upcoming Encounters Date Type Department Care Team (Latest Contact Info) Description 03/13/2024 4:00 AM CDT Home Care Visit [facility] [address] [place] [phone] Anjana Brady, SEBASTIAN 03/13/2024 4:00 AM CDT Home Care Visit [facility] [address] [place] [address] Carly Ro, SANTO [address] [place] [address] 03/13/2024 8:45 AM CDT Home Care Visit [facility] [address] [place] [address] Cristal Mart 03/13/2024 3:10 PM CDT Telemedicine [facility] [address] [place] [address] Rivas Torres MD [address] [place] [address] 03/17/2024 4:00 AM CDT Home Care Visit [facility] [address] [place] [address] Anjana Brady RN 03/17/2024 5:00 AM CDT Home Care Visit [facility] [address] [place] [phone] Carly Ro, SANTO [address] [place] [address] 03/19/2024 4:00 AM CDT Home Care Visit [facility] [address] [place] [address] Carly Ro, SANTO [address] [place] [address] 03/20/2024 4:00 AM CDT Home Care Visit [facility] [address] [place] [phone] Anjana Brady RN 03/24/2024 4:00 AM CDT Home Care Visit [facility] [address] [place] [address] Anjana Brady RN 03/26/2024 4:00 AM CDT Home Care Visit [facility] [address] [place] [address] PujaCarly méndez, SANTO [address] [place] [address] 03/27/2024 4:00 AM CDT Home Care Visit [facility] [address] [place] [address], [place] [address] Anjana Brady, SEBASTIAN 03/31/2024 4:00 AM CDT Home Care Visit [facility] [address] [place] [address], [place] [address] Anjana Brady, SEBASTIAN 04/01/2024 5:30 AM CDT Home Care Visit [facility] [address] [place] [phone] Marlene Angeles, OT [address], [place] [address] 04/07/2024 4:00 AM CDT Home Care Visit [facility] [address] [place] [address], [place] [address] Anjana Brady, SEBASTIAN 04/14/2024 4:00 AM CDT Appointment [facility] [address] [place] [phone] Anjana Brady, SEBASTIAN 06/11/2024 7:15 AM DIAL MARKER Hospital Encounter [facility] [address] [place] [address] Severino Rodrigues MD [address] [place] [address] 06/11/2024 7:15 AM DIAL MARKER - 06/11/2024 8:31 AM DIAL MARKER Surgery [facility] [address] [place] [address] Severino Rodrigues MD [address] [place] [address] cystoscopy, left ureteral stent exchange Scheduled Procedures Name Priority Associated Diagnoses Date/Ti me CYSTOSCOPY EXCHANGE URETERAL STENT Elective N13.30 Unspecified hydronephrosis 06/11/2024 7:15 AM DIAL MARKER Health Maintenance Due Date Last Done Comments [...] 03/08/2021, 01/04/2021 Medical Devices Implanted Type Area Motion Picture Printer Device Identifier Shelf Expiration Date Model / Serial / Lot Stent Uret [id number] P[employer]lex Hydroplus - [id number] Implanted:Qty: 1 on 02/01/2023 by Severino Rodrigues MD at [facility] Left: [employer] [facility] 03/07/2025 [id number] / / [id number] Stent Uret [id number] Percuflex Hydroplus - [id number] Implanted:Qty: 1 on 10/03/2023 by Severino Rodrigues MD at [facility] Left: [employer] [facility] 03/29/2026 [id number] / / [id number] Procedures Procedure Name Priority Date/Time Associated Diagnosis Comments RED CELL MORPHOLOGY Routine 02/25/2024 2 :03 PM CDT Anemia due to acute blood loss PLATELET ESTIMATE Routine 02/25/2024 2:0 3 PM CDT Anemia due to acute blood loss MANUAL DIFFERENTIAL Routine 02/25/2024 2 :03 PM CDT Anemia due to acute blood loss CBC WITH AUTO DIFFERENTIAL Routine 02/25/2024 2:03 PM CDT Anemia due to acute blood loss HEPATIC FUNCTION PANEL Routine 02/25/2024 2:03 PM CDT Elevated LFTs CBC WITH AUTO DIFFERENTIAL Routine 02/25/2024 2:03 PM CDT Anemia due to acute blood loss BASIC METABOLIC PANEL Routine 02/25/2024 2:03 PM CDT Hypocalcemia PHOSPHORUS Routine 02/25/2024 2:03 PM CDT Hypocalcemia MAGNESIUM Routine 02/25/2024 2:03 PM CDT Hypocalcemia SCAN CORRESP-EKG RESULTS 02/24/2024 3:57 PM CDT SCAN CORRESP-LABORATORY RESULTS 02/24/2024 3:57 PM CDT CALCIUM Timed 02/23/2024 6:40 AM CDT PHOSPHORUS Early AM 02/23/2024 6:40 AM CDT MAGNESIUM Early AM 02/23/2024 6:40 AM CDT ELECTROLYTE PANEL Early AM 02/23/2024 6:4 0 AM CDT HEMOGLOBIN Early AM 02/23/2024 6:40 AM CDT CALCIUM Timed 02/22/2024 5:25 PM CDT CALCIUM Early AM 02/22/2024 6:43 AM CDT CALCITRIOL(1 25 DI OH VIT D) Early AM 02/22/2024 6:43 AM CDT MAGNESIUM Early AM 02/22/2024 6:43 AM CDT PHOSPHORUS RACHAEL 02/22/2024 6:43 AM CDT VITAMIN D 25 (DEFICIENCY) RACHAEL 02/22/2024 6:43 AM CDT VITAMIN D 25 (DEFICIENCY) RACHAEL 02/21/2024 6:39 PM CDT CALCIUM Timed 02/21/2024 6:39 PM CDT BASIC METABOLIC PANEL Early AM 02/21/2024 5:44 AM CDT CBC W PLT NO DIFF Early AM 02/21/2024 5:4 4 AM CDT HEMOGLOBIN Timed 02/20/2024 4:51 PM CDT CALCIUM IONIZED HOSPITAL DRAW ONLY Timed 02/20/2024 4:51 PM CDT TRANSFUSE RBC (NURSE COMMUNICATION ORDER) STAT 02/20/2024 3:47 PM CDT PATH TISSUE EXAM Today 02/20/2024 3:34 PM CDT RBC W/O TYPE & SCREEN [...] AUTO DIFFERENTIAL STAT 02/18/2024 12:03 AM CDT SCAN-CARDIAC STRIP 02/18/2024 12 :00 AM CDT URINALYSIS MICROSCOPIC STAT 02/17/2024 10:58 [...] Results * (ABNORMAL) CBC WITH AUTO DIFFERENTIAL (02/25/2024 2:03 PM CDT) Only the most recent of2 resultswithin the time period is included. WHITE BLOOD COUNT 5.4 4.5 - 11.0 thou/cu mm 02/25/2024 3:02 PM CDT [facility] RED BLOOD COUNT 2.79(L) 4.30 - 5.90 mil/cu mm 02/25/2024 3:02 PM CDT [facility] HEMOGLOBIN 7.7(L) 13.5 - 17.5 g/dL 02/25/2024 3:02 PM CDT [facility] HEMATOCRIT 24.3(L) 37.0 - 53.0 % 02/25/2024 3:02 PM CDT [facility] MCV 87 80 - 100 fL 02/25/2024 3:02 PM CDT [facility] MCH 27.6 26.0 - 34.0 pg 02/25/2024 3:02 PM CDT [facility] MCHC 31.7(L) 32.0 - 36.0 g/dL 02/25/2024 3:02 PM CDT [facility] RDW 18.3(H) 11.5 - 15.5 % 02/25/2024 3:02 PM CDT [facility] PLATELET COUNT 73(L) 140 - 440 thou/cu mm 02/25/2024 3:02 PM CDT [facility] MPV 9.4 6.5 - 11.0 fL 02/25/2024 3:02 PM CDT [facility] Blood BLOOD SPECIMEN / Unknown Venipuncture / Unknown 02/25/2024 2:03 PM CDT 02/25/2024 2:04 PM CDT Isabella Flynn MD HEMATOLOGY [facility] [address] [place] [address], * (ABNORMAL) RED CELL MORPHOLOGY (02/25/2024 2:03 PM CDT) Only the most recent of2 resultswithin the time period is included. ELLIPTOCYTES Moderate 02/25/2024 3:02 PM CDT [facility] RBC COMMENT Present(A) RBC morphology appears normal, RBC morphology within normal limits for newborns. 02/25/2024 3:02 PM CDT [facility] Blood BLOOD SPECIMEN / Unknown Venipuncture / Unknown 02/25/2024 2:03 PM CDT 02/25/2024 2:04 PM CDT Isabella Flynn MD HEMATOLOGY Performing Organization Address City/[facility]/ZIP Co de Phone Number [facility] [address] [place] [address], * (ABNORMAL) PLATELET ESTIMATE (02/25/2024 2:03 PM CDT) Only the most recent of3 resultswithin the time period is included. Pathologist [facility] PLATELET ESTIMATE Decreased (A) Adequate, No estimate 02/25/2024 3:02 PM CDT [facility] Blood BLOOD SPECIMEN / Unknown Venipuncture / Unknown 02/25/2024 2:03 PM CDT 02/25/2024 2:04 PM CDT Isabella Flynn MD HEMATOLOGY Performing Organization Address [facility] Co de Phone Number [facility] [address] [place] [address], * (ABNORMAL) MANUAL DIFFERENTIAL (02/25/2024 2:03 PM CDT) Only the most recent of2 resultswithin the time period is included. [facility] % NEUTROPHILS 80.0 % 02/25/2024 3:02 PM CDT [facility] % LYMPHOCYTES 13.0 % 02/25/2024 3:02 PM CDT [facility] % MONOCYTES 5.0 % 02/25/2024 3:02 PM CDT [facility] % EOSINOPHILS 2.0 % 02/25/2024 3:02 PM CDT [facility] % BASOPHILS 0.0 % 02/25/2024 3:02 PM CDT [facility] NEUTROPHILS ABSOLUTE 4.3 1.7 - 7.0 thou/cu mm 02/25/2024 3:02 PM CDT [facility] LYMPHOCYTES ABSOLUTE 0.7(L) 0.9 - 2.9 thou/cu mm 02/25/2024 3:02 PM CDT [facility] MONOCYTES ABSOLUTE 0.3 <0.9 thou/cu mm 02/25/2024 3:02 PM CDT [facility] EOSINOPHILS ABSOLUTE 0.1 <0.5 thou/cu mm 02/25/2024 3:02 PM CDT [facility] BASOPHILS ABSOLUTE 0.0 <0.3 thou/cu mm 02/25/2024 3:02 PM CDT [facility] Blood BLOOD SPECIMEN / Unknown Venipuncture / Unknown 02/25/2024 2:03 PM CDT 02/25/2024 2:04 PM CDT Isabella Flynn MD HEMATOLOGY [facility] [address] [place] [address], * PHOSPHORUS (02/25/2024 2:03 PM CDT) Only the most recent of3 resultswithin the time period is included. PHOSPHORUS 3.2 2.5 - 4.5 mg/dL 02/26/2024 1:22 AM CDT [facility] Blood BLOOD SPECIMEN / Unknown Venipuncture / Unknown 02/25/2024 2:03 PM CDT 02/25/2024 2:04 PM CDT Paul Preston MD CHEMISTRY [facility] [address] [place] [address], * (ABNORMAL) MAGNESIUM (02/25/2024 2:03 PM CDT) Only the most recent of4 resultswithin the time period is included. MAGNESIUM 1.5(L) 1.6 - 2.4 mg/dL 02/26/2024 1:22 AM CDT [facility] Blood BLOOD SPECIMEN / Unknown Venipuncture / Unknown 02/25/2024 2:03 PM CDT 02/25/2024 2:04 PM CDT Paul Preston MD CHEMISTRY [facility] [address] [place] [address], * (ABNORMAL) LIVER PANEL (HEPATIC FUNCTION PANEL) (02/25/2024 2:03 PM CDT) Only the most recent of3 resultswithin the time period is included. ALBUMIN 2.7(L) 4.0 - 4.9 g/dL 02/26/2024 1:22 AM CDT [facility] PROTEIN,TOTAL 5.2(L) 6.0 - 8.0 g/dL 02/26/2024 1:22 AM [facility] BILIRUBIN,TOTAL 0.3 0.0 - 1.2 mg/dL 02/26/2024 1:22 AM T [facility] BILIRUBIN,DIRECT <0.2 0.0 - 0.3 mg/dL 02/26/2024 1:22 AM T [facility] BILIRUBIN,INDIRE CT 02/26/2024 1:22 AM T [facility] Comment:Unable to calculate, Direct Bili <0.2 ALK PHOSPHATASE 484(H) 40 - 129 IU/L 02/26/2024 1:22 AM CDT [facility] ALT (SGPT) 45 10 - 50 IU/L 02/26/2024 1:22 AM T [facility] AST (SGOT) 53(H) 10 - 50 IU/L 02/26/2024 1:22 AM CDT [facility] Blood BLOOD SPECIMEN / Unknown Venipuncture / Unknown 02/25/2024 2:03 PM CDT 02/25/2024 2:04 PM CDT Isabella Flynn MD CHEMISTRY [facility] [address] [place] [address], * (ABNORMAL) BASIC METABOLIC PANEL (02/25/2024 2:03 PM CDT) Only the most recent of6 resultswithin the time period is included. SODIUM 139 136 - 145 mmol/L 02/26/2024 1:37 AM CDT [facility] POTASSIUM 4.5 3.5 - 5.1 mmol/L 02/26/2024 1:37 AM T [facility] CHLORIDE 104 98 - 107 mmol/L 02/26/2024 1:37 AM T [facility] CO2,TOTAL 23 22 - 29 mmol/L 02/26/2024 1:37 AM T [facility] ANION GAP 12 5 - 18 02/26/2024 1:37 AM T [facility] GLUCOSE 169(H) 70 - 99 mg/dL 02/26/2024 1:37 AM T [facility] CALCIUM 6.9(L) 8.8 - 10.2 mg/dL 02/26/2024 1:37 AM T [facility] BUN 26(H) 8 - 23 mg/dL 02/26/2024 1:37 AM T [facility] CREATININE 0.59(L) 0.70 - 1.20 mg/dL 02/26/2024 1:37 AM [facility] BUN/CREAT RATIO 44(H) 10 - 20 1:37 AM T [facility] eGFR >90 >90 mL/min/1.7 3m2 02/26/2024 1:37 AM T [facility] Comment:As of 2021, eG FR is calculated by the CKD-EPI creatinine equation without race adjustment. ??eGFR can be influenced by muscle mass, exercise, and diet. ??The reported eGFR is an estimation only and is only applicable if the renal function is stable. Blood BLOOD SPECIMEN / Unknown Venipuncture / Unknown 02/25/2024 2:03 PM CDT 02/25/2024 2:04 PM CDT Isabella Flynn MD CHEMISTRY Performing Organization Address [facility] Co de Phone Number [facility] [address] [place] [address], * SCAN CORRESP-LABORATORY RESULTS (02/24/2024 3:57 PM CDT) Narrative 02/24/2024 3:57 PM CDT Ordered by an unspecified provider. Other Clinical Staff OTHER * SCAN CORRESP-EKG RESULTS (02/24/2024 3:57 PM CDT) Narrative 02/24/2024 3:57 PM CDT Ordered by an unspecified provider. Other Clinical Staff OTHER * (ABNORMAL) Hemoglobin AM (02/23/2024 6:40 AM CDT) Only the most recent of7 resultswithin the time period is included. HEMOGLOBIN 7.1(L) 13.5 - 17.5 g/dL 02/23/2024 7:10 AM CDT [facility] MCV 82 80 - 100 fL 02/23/2024 7:10 AM CDT [facility] Blood BLOOD SPECIMEN / Unknown Non-Lab Venipuncture / Unknown 02/23/2024 6:40 AM CDT 02/23/2024 6:52 AM CDT Scott HURST HEMATOLOGY Performing Organization Address [facility] Co de Phone Number [facility] [address] [place] [address], * (ABNORMAL) CALCIUM (02/23/2024 6:40 AM CDT) Only the most recent of6 resultswithin the time period is included. CALCIUM 5.9(LL) 8.8 - 10.2 mg/dL 02/23/2024 7:32 AM CDT [facility] Blood BLOOD SPECIMEN / Unknown Non-Lab Venipuncture / Unknown 02/23/2024 6:40 AM CDT 02/23/2024 6:52 AM CDT Paul Preston MD CHEMISTRY [facility] [address] [place] [address], * (ABNORMAL) Electrolyte panel AM (02/23/2024 6:40 AM CDT) [facility] SODIUM 139 136 - 145 mmol/L 02/23/2024 7:30 AM CDT [facility] POTASSIUM 3.1(L) 3.5 - 5.1 mmol/L 02/23/2024 7:30 AM CDT [facility] CHLORIDE 105 98 - 107 mmol/L 02/23/2024 7:30 AM CDT [facility] CO2,TOTAL 25 22 - 29 mmol/L 02/23/2024 7:30 AM CDT [facility] ANION GAP 9 5 - 18 02/23/2024 7:30 AM CDT [facility] Blood BLOOD SPECIMEN / Unknown Non-Lab Venipuncture / Unknown 02/23/2024 6:40 AM CDT 02/23/2024 6:52 AM CDT Scott HURST CHEMISTRY Performing Organization Address City/[facility]/ZIP Co de Phone Number [facility] [address] [place] [address], * (ABNORMAL) CALCITRIOL(1 25 DI [place] VIT D) (02/22/2024 6:43 AM CDT) Pathologist [facility] Vit D 1,25 di [place] 125.0(H) 24.8 - 81.5 pg/mL 02/24/2024 2:[address] [facility] ([facility]) Blood BLOOD SPECIMEN / Unknown Non-Lab Venipuncture / Unknown 02/22/2024 6:43 AM CDT 02/22/2024 7:[address] [facility] - 02/24/2024 2:08 PM CDT Performed at: ??01 - [facility] [address] [place] [address] ??[id number] Motor Teacher: Lalo Garcia MD, Phone: ??[phone] Paul Preston MD SEND OUTS [facility] ([facility]) [address] [place] [address], [place] * VITAMIN D 25 (DEFICIENCY) (02/22/2024 6:43 AM CDT) Only the most recent of2 resultswithin the time period is included. Pathologist [facility] VITAMIN D TOTAL 24.4 20.0 - 80.0 ng/mL 02/22/2024 8:02 AM CDT [facility] Blood BLOOD SPECIMEN / Unknown Non-Lab Venipuncture / Unknown 02/22/2024 6:43 AM CDT 02/22/2024 7:01 AM CDT Narrative [facility] - 02/22/2024 8:02 AM CDT ? Vitamin D Status Deficiency: ? <20 ng/mL Insufficiency: ?20-29 ng/mL Sufficiency: ?30-80 ng/mL Possible Toxicity: ??>80 ng/mL Based on [place] of Medicine recommendations Biotin supplements may cause clinically significant interference for this test assay. ??If interference is suspected, it is strongly recommended that biotin is discontinued for at least one week prior to retesting. Paul Preston MD SEND OUTS [facility] [address] [place] [address] * (ABNORMAL) CBC (02/21/2024 5:44 AM CDT) Only the most recent of2 resultswithin the time period is included. WHITE BLOOD COUNT 5.4 4.5 - 11.0 thou/cu mm 02/21/2024 6:14 AM CDT [facility] RED BLOOD COUNT 2.66(L) 4.30 - 5.90 mil/cu mm 02/21/2024 6:14 AM CDT [facility] HEMOGLOBIN 7.1(L) 13.5 - 17.5 g/dL 02/21/2024 6:14 AM CDT [facility] HEMATOCRIT 22.2(L) 37.0 - 53.0 % 02/21/2024 6:14 AM CDT [facility] MCV 84 80 - 100 fL 02/21/2024 6:14 AM CDT [facility] MCH 26.7 26.0 - 34.0 pg 02/21/2024 6:14 AM CDT [facility] MCHC 32.0 32.0 - 36.0 g/dL 02/21/2024 6:14 AM CDT [facility] RDW 17.0(H) 11.5 - 15.5 % 02/21/2024 6:14 AM CDT [facility] PLATELET COUNT 79(L) 140 - 440 thou/cu mm 02/21/2024 6:14 AM CDT [facility] MPV 9.6 6.5 - 11.0 fL 02/21/2024 6:14 AM CDT [facility] NRBC 0.7 % 02/21/2024 6:14 AM CDT [facility] ABS NRBC 0.0 thou /cu mm 02/21/2024 6:14 AM CDT [facility] Blood BLOOD SPECIMEN / Unknown Non-Lab Venipuncture / Unknown 02/21/2024 5:44 AM CDT 02/21/2024 6:00 AM CDT Scott HURST HEMATOLOGY Performing Organization Address [facility] Co de Phone Number [facility] [address] * (ABNORMAL) Calcium, ionized STAT (02/20/2024 4:51 PM CDT) Only the most recent of5 resultswithin the time period is included. CALCIUM,IONIZE D 0.93(L) 1.15 - 1.27 mmol/L 02/20/2024 5:09 PM CDT [facility] Blood BLOOD SPECIMEN / Unknown Non-Lab Venipuncture / Unknown 02/20/2024 4:51 PM CDT 02/20/2024 5:05 PM CDT Scott HURST CHEMISTRY Performing Organization Address [facility] Co de Phone Number [facility] [address] * TRANSFUSE RBC (NURSE COMMUNICATION ORDER) (02/20/2024 3:47 PM CDT) Blood BLOOD SPECIMEN / Unknown Jesus Quiroz CRNA NURSING BLOOD B ANK * PATH TISSUE EXAM (02/20/2024 3:34 PM CDT) Case Report Pathology Report ?Case: [id number] ? Authorizing Provider: ??Rivas Cook MD ? Collected: ? 02/20/2024 1534 ? Ordering Location: ? [facility] ?Received: ?02/20/2024 1559 ? Hospital ? Pathologist: ? Pk Pruitt MD ? Specimen: ?Prostate, prostate vs bladder tumor ? 4 1:[address] [facility] Final Diagnosis A) BLADDER TRIGONE, BLADDER NECK, AND PROSTATIC URETHRA, TRANSURETHRAL RESECTION: 1. Involved by prostatic adenocarcinoma, see comment 2. blood clot 4 1:54 PM CDT [facility]ORAT[facility] Comment The specimen demonstrates residual/recurrent prostatic adenocarcinoma, best graded Rosa Maria's 4+5 = 9/10 (ISUP grade group 5). Features of post-treatment neuroendocrine differentiation are not seen (Chromogranin and INSM-1 immunohistochemical stains negative). 4 1:[address] [facility] Clinical Information 78-year-old with a history of [place] 3+4 prostate cancer diagnosed in 2010, PSA 4.85. ??Received radiation and hormonal therapy in 2010, cryotherapy in 2019 for local recurrence. ??Noted to have gross hematuria in 2022, prostate biopsies at that time demonstrated [place] 5+5 prostate cancer, PSA 1.5. 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 ??Recent biopsies from the bladder neck demonstrated necrotic tissue. Current cystoscopy demonstrates blood clot and associated tumor in the trigone of the bladder bladder and involving the bladder neck and prostatic urethra,??resected. 4 1:54 PM CDT [facility] Gross Description A) Received fresh labeled with the patient's name and prostate versus bladder tumor, is a 1.5 g, 3.2 x 2.2 x 0.8 cm aggregate of multiple portions of grimaldo-pink, cauterized soft tissue admixed with dark red clotted blood. ??The specimen is entirely submitted in 3 cassettes. JKT 02/20/2024 4 1:54 PM T [facility] Microscopic Description The final diagnosis is based on microscopic examination of appropriate sections of all specimens. Immunohistochemical staining (performed on block A1): Stain: ? Result Cytokeratin ?? 7 ?negative in tumor cells Cytokeratin ??20 ?negative in tumor cells Cytokeratin HMW ?negative in tumor cells Lorie-3 ? negative in tumor cells PSA ?positive in tumor cells PSAP ? positive in tumor cells Chromogranin ? negative in tumor cells INSM-1 ? negative in tumor cells Support for the interpretation of this case may have included the use of immunohistochemistry and/or in situ hybridization tests that were performed by [email or web address] and whose performance characteristics were evaluated by pathologists from [facility]. These tests have not been cleared or approved by the U.S. Food and Drug Administration. The FDA has determined that such clearance or approval is not necessary. These tests are used for clinical purposes and should not be regarded as investigational or for research. This laboratory is certified under the Clinical Laboratory Improvement Amendments of 1988 (CLIA) as qualified to perform high complexity clinical laboratory testing. 4 1:54 PM CDT [facility] Additional Information Interpreted at [facility] [facility], Central Laboratory - [address] [place] [address] Immunohistochemistry controls were reviewed and approved by the pathologist during this examination. 4 1:54 PM CDT [facility] Tissue SPECIMEN FROM PROSTATE / Unknown 02/20/2024 3:34 PM CDT 02/20/2024 3:59 PM CDT Rivas Cook MD PATHOLOGY/CYTOLOGY [facility] [address] [place] [address], * RBC W/O TYPE & SCREEN (02/20/2024 3:30 PM CDT) Only the most recent of4 resultswithin the time period is included. QUANTITY 1 02/20/2024 3:3 0 PM CDT [facility]TR[facility] LAB BLOOD BANK Blood BLOOD SPECIMEN / Unknown 02/20/2024 3:28 PM CDT Jesus Quiroz [facility] B[facility] Performing Organization Address City/[facility]/ZIP Co de Phone Number [facility] BLOOD BANK [address] [place] [address], [place] [phone] * RED BLOOD CELLS EA UNIT (02/20/2024 3:30 PM CDT) Only the most recent of4 resultswithin the time period is included. Pathologist Jacob CROSSMATCH Compatible Compatible [employer] [facility]-CENTRAL LAB BLOOD BANK PRODUCT BLOOD TYPE O Rh Positive [employer] [facility] LAB BLOOD BANK PRODUCT ID NUMBER [id number] [employer] [facility]-CENTRAL LAB BLOOD BANK PRODUCT STATUS Transfused [facility] TalentSoftCENTRAL LAB BLOOD BANK PRODUCT DESCRIPTION RBC -1 LR [employer] [facility]Street[facility]ENTRAL LAB BLOOD BANK PRODUCT CODE [id number] [employer] [facility] LAB BLOOD BANK ISSUE DATE/TIME 02/20/24 15:37 [employer] [facility]TR[facility] LAB BLOOD BANK Jesus Quiroz CRNA BLOOD BANK Performing Organization Address City/State/[facility] Co de Phone Number [facility] LAB-CENTRAL LAB BLOOD BANK [address] [place] [address], * TRANSFUSE RBC (NURSE COMMUNICATION ORDER) (02/20/2024 [...] Maria DO NURSING BLOOD BANK * (ABNORMAL) PTH intact TODAY (02/19/2024 5:04 PM CDT) CALCIUM 5.3(LL) 8.8 - 10.2 mg/dL 02/19/2024 6:13 PM CDT [employer] [facility] PTH,INTACT 500.0(H) 15.0 - 69.0 pg/mL 02/19/2024 6:13 PM CDT [employer] [facility] Blood BLOOD SPECIMEN / Unknown Non-Lab Venipuncture / Unknown 02/19/2024 5:04 PM CDT 02/19/2024 5:24 PM CDT Scott HURST SEND OUTS [facility]-CENTRAL LABORATORY [address] [place] [address], [place] * CT ABDOMEN PELVIS W (02/19/2024 [...] For Patients: ??As a result of the Century Cures Act, medical imaging exams and procedure [...] NURSING BLOOD BAN K * (ABNORMAL) PLATELET COUNT (02/19/2024 5:35 AM CDT) PLATELET COUNT 99(L) 140 - 440 thou/cu mm 02/19/2024 6:28 AM CDT [facility] MPV 9.4 6.5 - 11.0 fL 02/19/2024 6:28 AM CDT [facility] Blood BLOOD SPECIMEN / Unknown Non-Lab Venipuncture / Unknown 02/19/2024 5:35 AM CDT 02/19/2024 5:47 AM CDT Kathleen Garner MD HEMATOLOGY Performing Organization Address City/[facility] Co de Phone Number [facility] [address] [place] [address], [place] * (ABNORMAL) WHITE BLOOD COUNT (02/19/2024 5:35 AM CDT) WHITE BLOOD COUNT 4.0(L) 4.5 - 11.0 thou/cu mm 02/19/2024 6:28 AM CDT [facility] NRBC 0.5 % 02/19/2024 6:28 AM CDT [facility] ABS NRBC 0.0 thou /cu mm 02/19/2024 6:28 AM CDT [facility] Blood BLOOD SPECIMEN / Unknown Non-Lab Venipuncture / Unknown 02/19/2024 5:35 AM CDT 02/19/2024 5:47 AM CDT Kathleen Garner MD HEMATOLOGY Performing Organization Address City/[facility]/ZIP Co de Phone Number [facility] [address] [place] [address], [place] * SODIUM (02/19/2024 5:35 AM CDT) SODIUM 136 136 - 145 mmol/L 02/19/2024 6:15 AM CDT [facility] Blood BLOOD SPECIMEN / Unknown Non-Lab Venipuncture / Unknown 02/19/2024 5:35 AM CDT 02/19/2024 5:47 AM CDT Kathleen Garner MD CHEMISTRY Performing Organization Address City/[facility]/ZIP Co de Phone Number [facility] [address] [place] [address], * POTASSIUM (02/19/2024 5:35 AM CDT) Only the most recent of2 resultswithin the time period is included. POTASSIUM 4.4 3.5 - 5.1 mmol/L 02/19/2024 6:15 AM CDT [facility] Blood BLOOD SPECIMEN / Unknown Non-Lab Venipuncture / Unknown 02/19/2024 5:35 AM CDT 02/19/2024 5:47 AM CDT Kathleen Garner MD CHEMISTRY Performing Organization Address [facility] Co de Phone Number [facility] [address] [place] [address], * CREATININE (02/19/2024 5:35 AM CDT) eGFR >90 >90 mL/min/1.7 3m2 02/19/2024 6:15 AM CDT [facility] Comment:As of 2021, eG FR is calculated by the CKD-EPI creatinine equation without race adjustment. ??eGFR can be influenced by muscle mass, exercise, and diet. ??The reported eGFR is an estimation only and is only applicable if the renal function is stable. CREATININE 0.70 0.70 - 1.20 mg/dL 02/19/2024 6:15 AM CDT [facility] Blood BLOOD SPECIMEN / Unknown Non-Lab Venipuncture / Unknown 02/19/2024 5:35 AM CDT 02/19/2024 5:47 AM CDT Kathleen Garner MD CHEMISTRY [facility] [address] [place] [address], * TYPE AND SCREEN ONLY (02/18/2024 3:16 PM CDT) ABORH O Rh Positive 02/18/2024 4:19 PM CDT [facility]-CENTRAL LAB BLOOD BANK ANTIBODY SCREEN Negative Negative 02/18/2024 4:19 PM CDT [facility] LAB BLOOD BANK SPECIMEN EXPIRATION DATE/TIME 02/21/24 23:59 02/18/2024 4:19 PM CDT [facility] Blood BLOOD SPECIMEN / Unknown Butterfly / Unknown 02/18/2024 3:16 PM CDT 02/18/2024 3:40 PM CDT Tripp Bernabe MD BLOOD BANK [facility] B[facility]OD B[facility] [address] [place] [address], * SCAN-CARDIAC STRIP (02/18/2024 12:00 AM CDT) Narrative 02/18/2024 12:00 AM CDT Ordered by an unspecified provider. Other Clinical Staff OTHER * (ABNORMAL) URINALYSIS MICROSCOPIC (02/17/2024 10:58 PM CDT) RBC >100(A) 0-2, None Seen /HPF 02/17/2024 11:35 PM CDT [facility] WBC 6-10(A) 0-2, 3-5, None Seen /HPF 02/17/2024 11:35 PM CDT [facility] BACTERIA None Seen None Seen, Rare, Few Bacteria/ HPF 02/17/2024 11:35 PM CDT [facility] EPITHELIAL CELLS None Seen None Seen, Few Epi/HPF 02/17/2024 11:35 PM CDT [facility] HYALINE CASTS 3-5 0-2, 3-5 /LPF 02/17/2024 11:35 PM CDT [facility] Urine URINE SPECIMEN / Unknown Non-Blood / Unknown 02/17/2024 10:58 PM CDT 02/17/2024 11:10 PM CDT John Nj MD URINE [facility] [address] [place] [address], [place] * (ABNORMAL) UA W/ SEDIMENT EXAM REFLEXED PER CRITERIA (02/17/2024 10:58 PM CDT) COLOR [place](A) Yellow Color 02/17/2024 11:35 PM CDT [facility] CLARITY Clear Clear Clarity 02/17/2024 11:35 PM CDT [facility] TR[facility] LAB[facility] SPECIFIC GRAVITY,URINE 1.010 1.010, 1.015, 1.020, 1.025 02/17/2024 11:35 PM CDT [facility] PH,URINE 8.0 6.0, 7.0, 8.0, 5.5, 6.5, 7.5, 8.5 02/17/2024 11:35 PM CDT [facility] UROBILINOGEN, QUALITATIVE Normal Normal EU/dl 02/17/2024 11:35 PM CDT [facility] TR[facility] LAB[facility]ATORY PROTEIN, URINE 100(A) Negative mg/dL 02/17/2024 11:35 PM CDT [facility] GLUCOSE, URINE Negative Negative mg/dL 02/17/2024 11:35 PM CDT [facility] KETONES,URINE Negative Negative mg/dL 02/17/2024 11:35 PM CDT [facility] TRAL LABORATORY BILIRUBIN,URI NE Negative Negative 02/17/2024 11:35 PM CDT [facility] OCCULT BLOOD,URINE Large(A) Negative 02/17/2024 11:35 PM CDT [facility] NITRITE Negative Negative 02/17/2024 11:35 PM CDT [facility] LEUKOCYTE ESTERASE Trace(A) Negative 02/17/2024 11:35 PM CDT [facility] Urine URINE SPECIMEN / Unknown Non-Blood / Unknown 02/17/2024 10:58 PM CDT 02/17/2024 11:10 PM CDT John Nj MD URINE Performing Organization Address [facility] Co de Phone Number [facility] [address] * SCAN-MRI INTERPRETATION (12/26/2023 12:00 AM CDT) Anatomical Region Laterality Modality Other Scanner OTHER * URINE CULTURE (12/11/2023 8:03 AM CDT) CULTURE No growth (<1,000 CFU/mL) 12/12/2023 11:32 AM CDT [facility] Urine URINE SPECIMEN / Unknown Non-Blood / Unknown 12/11/2023 8:03 AM CDT 12/11/2023 8:03 AM CDT Rivas Torres MD MICROBIOLOGY Performing Organization Address [facility] Co de Phone Number [facility] [address] * ANTI HCV [[id number]] (05/19/2018 7:38 AM CDT) HEPATITIS C ANTIBODY Non-React rafia Non-React rafia 05/19/2018 3:00 PM CDT [facility] Comment:Antibodies to HCV no t detected; does not exclude the possibility of exposure to HCV. Blood BLOOD SPECIMEN / Unknown Venipuncture / Unknown 05/19/2018 7:38 AM CDT 05/19/2018 7:39 AM CDT Rivas Torres MD SEND OUTS [employer] LABORATORY-CENTRAL LABORATORY [address] [place] [address], from Last 3 Months or Most Recently Relevant to Health Maintenance Advance Directives Documents on File Type Date Recorded Patient Electronics Tester Expl anation Healthcare Directive 02/25/2024 4:43 PM HE ALTHCARE DIRECTIVE, SCANNED 02/25/24 Power of Tire Service Technician 02/21/2023 MAEGAN HATHAWAY, 02/21/2023 * Full Code (Latest Code Status on File) Date Activated Date Inactivated Comments 02/26/2024 7:36 AM * Full Code Date Activated Date Inactivated Comments 02/18/2024 6:51 PM 02/23/2024 4:25 PM Question Answer Comments Code Status Discussion: Reviewed Preferences * Full Code Date Activated Date Inactivated Comments 10/03/2023 12:21 PM 10/03/2023 7:18 PM Question Answer Comments Code Status Discussion: Unable to Assess Preferences, Provider to review later * Full Code Date Activated Date Inactivated Comments 02/01/2023 9:10 AM 02/01/2023 6:04 PM Question Answer Comments Code Status Discussion: Not Discussed Care Teams Commercial Singer Relationship Specialty Start Date End Date [place] [address] [place] [address] PCP - General 01/09/06 [facility], [id number] [place] [address] 02/23/24
[2024-03-11] MEDS: MORPHINE 2 MG/ML inj IVP ×4 (14:23→22:43)
[2024-03-11] MEDS: HYOSCYAMINE SULFATE 0.125 MG TAB SUBLINGUAL (14:24)
[2024-03-11 14:43] LABS: Eosinophils Absolute Auto 0.01 K/uL (0.00-0.50); Eosinophils Percent Auto 0.1 % (0.0-7.0); Hemoglobin* 8.1 gm/dL (13.5-17.5); Immature Granulocytes Abs Auto 0.22 K/uL (0.00-0.30); Immature Granulocytes Pct Auto 2.1 %; Lymphocytes Percent Auto 1.5 % (20-44); Mean Corpuscular HGB Conc 32 gm/dL (32-36); Mean Corpuscular Hemoglobin 27 pg (26-34); Mean Corpuscular Volume 83 fL (80-100); Monocytes Percent Auto 7.6 % (0.0-11.0); Neutrophils Percent Auto 88.7 % (42.0-72.0); Platelet Count* 53 K/uL (140-440); RDW Coefficient of Variation % 18.1 % (11.5-15.5); Red Blood Count 3.01 m/uL (4.30-5.90); White Blood Count* 10.67 K/uL (4.50-11.00)
[2024-03-11 15:00] LABS: Chloride* 98 mmol/L (96-114); Potassium* 4.6 mmol/L (3.6-5.1); Sodium* 126 mmol/L (135-149)
[2024-03-11 15:02] LABS: Creatinine* 0.8 mg/dL (0.5-1.5); Est. Creatinine Clearance* 68.98; Estimated Glomerular Filt Rate 92 ml/min
[2024-03-11 15:03] LABS: Anion Gap 9 mEq/L (7-15); Blood Urea Nitrogen* 26 mg/dL (7-30); Carbon Dioxide* 19 mmol/L (20-32); Glucose* 187 mg/dL (60-115)
[2024-03-11 15:06] LABS: Calcium* 5.3 mg/dL (8.4-10.6)
[2024-03-11] MEDS: CALCIUM GLUC 1,000MG/50 ML 1,000 MG/50 ML BAG 100 MG IVPB ×3 (15:37→22:55)
[2024-03-11] MEDS: 0.9 % SODIUM CHLORIDE 1000 ml 1,000 ML 500 ML IV (15:39)
[2024-03-11 15:47] LABS: Magnesium* 1.9 mg/dL (1.5-2.6); Phosphorus* 3.3 mg/dL (2.5-4.5)
[2024-03-11 15:49] LABS: Slide Review Acceptable Review (Acceptable); Slide Review Reflex Yes
[2024-03-11] MEDS: MORPHINE 4 MG/ML INJ IVP (16:09)
--- NOTE | 2024-03-11 17:15 | PM.IMHP1 ---
Hospitalist- H&P: MER History of Present Illness Date Seen: 03/11/24 Chief complaint: Plugged catheter Narrative: Solis Thibodeaux is a 78 year old male with end-stage metastatic prostate cancer admitted through the emergency department with severe bladder pain, hematuria and a plugged Mccann catheter. Patient has end-stage widely metastatic prostate cancer. He has been undergoing a variety of therapies for this outlined below. He has an indwelling Mccann catheter. This is been an ongoing problem for him. He has had increasing pain in his bladder as well as ongoing gross hematuria with blood clots. The emergency department physician talked with Urology today and they felt that his bladder pain could be and arteritis 0 bladder ends, a complication of radiation treatment. Bladder scan in the emergency department was 318. He had irrigation of blood clots without good relief. Because of previous problems with his catheter it is recommended that we not remove his catheter and try to replace it due to the difficulty of placing a new catheter. The gross hematuria was evaluated by Urology and they determined that he has prostate cancer in his bladder that is thought to be the source of the gross hematuria. He has severe hypocalcemia. This is an ongoing problem for him. He is taking 4000 mg of calcium a day. In the last 2 days he has not had any calcium because is been hard for him to swallow that many pills. He has also had a history of hypokalemia for which he takes 80 mEq of potassium a day. He is eating very little. He has very poor appetite. He has been able to take in some fluid. He reported having a fever recently. He was seen by his oncologist today and is uncertain whether his fever is from a urinary infection or from a tumor fever. He is currently receiving a fentanyl patch 25 mcg per hour plus Percocet 3 tablets a day for pain. This is inadequate to his need. He has longstanding history of evaluation and treatment of prostate cancer diagnosed in 2010. At that time he had Rosa Maria 7. Treated with radical radiation therapy. No surgery. Treated with intermittent hormonal therapy. In 2018 had cryotherapy. Monitoring of PSA showed 4.85 around the time of diagnosis in 2010 and subsequently has been less than 1 until 2021. PET scan in November 2021 showed locally advanced prostate cancer involving inguinal lymph nodes and supra-acetabular osseous metastases. December of 2021 treated with Xtandi. January of 2023 PSMA PET scan showed metastatic prostate cancer and possibly obstructed left kidney. New metastatic lesions. Xtandi discontinued. February 2023 started Xgeva with Taxotere June 2023 PET-CT showed improvement with decrease in uptake of osseous lesions. September to December of 2023 treated with darolutamide. PSA continued to increase. Most recently 125 on Jan 03 2020 for January 22 2024 1st treatment of PYLARIFY F-18, radiopharmaceutical. Also being treated with Lupron. Recently was told the last attempt at treatment would be Keytruda. He came to the clinic today to start treatment with Keytruda but he was too weak and his electrolytes were too abnormal to receive treatment. Review of Systems Narrative: No respiratory symptoms. No chest pain. Bowels are working. He is taking do Raúl lacks and fiber supplement to help bowel function. [facility] Medical History (Updated 03/11/24 @ 17:40 by Fredis Vaughan MD) Prostate cancer metastatic to bone ?C61 - Malignant neoplasm of prostate (ICD-10) ?C79.51 - Secondary malignant neoplasm of bone (ICD-10) Malnutrition ?E46 - Unspecified protein-calorie malnutrition (ICD-10) Palliative care encounter ?Z51.5 - Encounter for palliative care (ICD-10) Fatigue ?R53.83 - Other fatigue (ICD-10) Anorexia ?R63.0 - Anorexia (ICD-10) Intravenous bisphosphonates causing adverse effect in therapeutic use ?T45.8X5A - Adverse effect of other primarily systemic and hematological agents, initial encounter (ICD-10) Myopathy ?G72.9 - Myopathy, unspecified (ICD-10) 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 - Acquired stenosis of unspecified nasolacrimal duct (ICD-10) Rash in adult ?R21 - Rash and other nonspecific skin eruption (ICD-10) Hypokalemia ?E87.6 - Hypokalemia (ICD-10) Hypocalcemia ?E83.51 - Hypocalcemia (ICD-10) Osseous metastasis ?C79.51 - Secondary malignant neoplasm of bone (ICD-10) Androgen deprivation therapy ?Z79.818 - rod greaser (current) use of other agents affecting estrogen receptors and estrogen levels (ICD-10) S/P radiation therapy ?Z92.3 - Personal history of irradiation (ICD-10) Health care directive on file ?Z78.9 - Other specified health status (ICD-10) Adenocarcinoma of prostate ?C61 - Malignant neoplasm of prostate (ICD-10) Social History (Updated 03/11/24 @ 17:23 by Fredis Vaughan MD) Narrative: He lives in [place]. He is . His closest contact, primary support and healthcare power of business attorney is Paulette Russo, his ex- and current friend. Nonsmoker. Former moderate alcohol consumption but none for several months. He Lives Alone What is your current living situation?: I presently have a place to live Problems where you live: no known problems Problems where you live details: n/a In the past 12 months, utilities in danger of being shut off: no In past 12 months, lack of transportation kept you from medical appts, meetings, work, or getting things needed for daily living: no In the past 12 mos, have been you worried that your food would run out before you had money to buy more?: never true In the past 12 mos, the food you bought just didn't last and you didn't have money to buy more?: never true Highest level of school completed/degree received: Master's degree Smoking Status: Never smoker Do you use any of these nicotine containing products: None How often do you have a drink containing alcohol: never AUDIT-C Alcohol total score: 0 Non-prescribed substance use: denies use Caffeine: Yes How often does anyone, including family, friends and others, physically hurt you: never How often does anyone, including family, friends and others, insult or talk down to you: never How often does anyone, including family, friends and others, threaten you with harm: never How often does anyone, including family, friends and others, scream or curse at you: never service: No Meds Home Medications and Allergies Home Medications ?Medication ?Instructions ?Recorded ?Confirmed ?Type rosuvastatin 5 mg tablet 5 mg PO DAILY 03/28/22 03/11/24 History tamsulosin 0.4 mg capsule 0.8 mg PO DAILY 03/28/22 03/11/24 History cyanocobalamin (vitamin B-12) 500 mcg PO Q3D 01/31/23 03/11/24 History 1,000 mcg capsule leuprolide acetate (6 month) 45 mg 45 mg IM [id number] 01/31/23 03/04/24 History intramuscular syringe kit (Lupron Depot) potassium chloride 20 mEq 40 meq PO BID 10/21/23 03/11/24 History tablet,extended release calcitriol 0.5 mcg capsule 0.5 mcg PO QDAY 03/02/24 03/11/24 History calcium carbonate 2,000 mg PO TID 03/02/24 03/11/24 History magnesium oxide 400 mg (241.3 mg 400 mg PO BID 03/02/24 03/11/24 History magnesium) tablet Allergies Allergy/AdvReac Type Severity Reaction Status Date / Time allopurinol Allergy Intermediate Verified 03/11/24 09:28 Exam Narrative: Exam Narrative: He is alert and appears in no some distress indicating pain in his bladder. He is oriented to his circumstances and gives his own history. Eyes are normal. Oropharynx with dry mucous membranes. Neck is supple without mass or adenopathy. Respirations are clear to auscultation. Cardiovascular: S1, S2, regular rate and rhythm. Abdomen: Bowel sounds are active. Abdomen is soft with moderate tenderness and fullness in the suprapubic area. No other tenderness or mass. External genitalia normal with a Mccann catheter draining a dark red urine/blood. Extremities upper extremities are normal. Lower extremities are cool to touch. Const: Vital Signs, click to edit/add: Vital Signs - 24 hr 03/11/24 13:41 03/11/24 14:30 03/11/24 14:45 Temperature 97.2 F L Pulse Rate 109 H 97 Pulse Rate [Pulse Oximeter] 127 H Pulse Rate [Right Radial] Respiratory Rate 18 Blood Pressure [Ri ght Arm] Blood Pressure [Ri ght Upper Arm] 101/69 Pulse Oximetry 99 97 96 [facility] 03/11/24 14:53 03/11/24 15:00 03/11/24 15:15 Temperature Pulse Rate 106 H 109 H Pulse Rate [Pulse Oximeter] Pulse Rate [Right Radial] Respiratory Rate Blood Pressure [Ri ght Arm] Blood Pressure [Ri ght Upper Arm] Pulse Oximetry 96 96 98 Oxygen Delivery Me thod 03/11/24 15:30 03/11/24 15:45 03/11/24 16:00 Temperature Pulse Rate 106 H 108 H 105 H Pulse Rate [Pulse Oximeter] Pulse Rate [Right Radial] Respiratory Rate Blood Pressure [Ri ght Arm] Blood Pressure [Ri ght Upper Arm] Pulse Oximetry 98 97 98 Oxygen Delivery Me thod 03/11/24 16:15 03/11/24 16:27 03/11/24 17:10 Temperature 97.6 F Pulse Rate 112 H Pulse Rate [Pulse Oximeter] 126 H Pulse Rate [Right Radial] 111 H Respiratory Rate 18 Blood Pressure [Ri ght Arm] 148/93 H Blood Pressure [Ri ght Upper Arm] 155/86 H Pulse Oximetry 99 93 97 Oxygen Delivery Me thod Room Air Room Air Documenting provider has reviewed patient's vital signs: yes Hospitalist - H&P: Result Labs Labs: Short CBC 03/11/24 Range/Units 14:37 WBC 10.67 (4.50-11.00) K/uL Hgb 8.1 L (13.5-17.5) gm/dL Hct 25.0 L (37.0-53.0) % Plt Count 53 L (140-440) K/uL BMP 03/11/24 14:30 Sodium 126 L Potassium 4.6 Chloride 98 Carbon Dioxide 19 L BUN 26 Creatinine 0.8 Glucose 187 H Calcium 5.3 L* Assessment and Plan Assessment and plan (1) Abdominal pain, suprapubic: Problem comment: Patient has severe bladder pain. Bladder scan shows 318 mL of retained urine and blood with Mccann catheter in place. 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 Will continue to monitor for obstruction of the catheter and attempt to manage that. Treatment for bladder pain will be opioid therapy. Status: Acute (2) Prostate cancer metastatic to bone: Problem comment: Oncology had eliminated previous treatments which were having too many side effects. Offered palliative Keytruda but he was too ill to receive it today. Poor prognosis. Recommend palliative care through hospice. Status: Acute (3) Hypocalcemia: Problem comment: Calcium 5.3 today. Poorly tolerating oral calcium. Even with high dose oral calcium he is subtherapeutic. Attempt to resume oral therapy and IV calcium pending decision about goals of care Status: Acute (4) Malnutrition: Problem comment: Approximately 11 kg weight loss in the last 12 weeks. Patient reports no appetite and very poor oral intake. Status: Acute (5) Hematuria: Problem comment: Due to prostate cancer in his bladder. 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 Indwelling Mccann with recurrent clot formation. Status: Acute (6) Hyponatremia: Problem comment: Due to poor oral intake with moderate water intake. Monitor with improved oral intake Status: Acute (7) Acute urinary retention: Problem comment: Is having ongoing bladder pain and hematuria that is causing clotting of the catheter. Will aspirate and irrigate the catheter as needed. Avoid removing the catheter as replacing it would likely be very traumatic and possibly require urologic surgery. It appears that the pain is out of proportion to what would be expected for his relatively minor bladder distension. Status: Acute (8) Palliative care encounter: Problem comment: Discussed with patient that his current severe medical problems including hematuria, hypocalcemia, malnutrition and the underlying cause of these, metastatic prostate cancer, have no good treatment options. All we have left his palliative care. He is considering hospice. Status: Acute (9) Fatigue: Status: Acute (10) Anorexia: Status: Acute Plan 78-year-old male with end-stage metastatic prostate cancer admitted to the hospital to address uncontrolled pain, severe hypocalcemia, hematuria, hyponatremia, malnutrition. Will address these problems specifically and continue conversation about goals of care. Total Time Spent Total Time Spent: Total time spent today is 90 minutes in coordination care discussing with patient and friend/power of business attorney ongoing evaluation management
[2024-03-11] MEDS: fentaNYL 50 MCG/HR PATCH 1 PATCH TRANSDERMA (17:26)
--- NOTE | 2024-03-11 18:36 | PC.NURSE ---
Patient's ex Paulette Russo going home for this evening. She updated that Solis has been a patient of [facility] and she has spoken to the staff through [facility] and they would be willing to open Solis as a hospice patient. States she is not able to care for him at home anymore and would be looking at SNF- mentioned [facility], [facility], or [facility] (if Solis is close to end of life). Paulette and patient need to speak with [facility] tomorrow to discuss disposition plans. Paulette's phone number is [phone].
[2024-03-11] MEDS: POTASSIUM BICARB 25 MEQ EFFERVESCENT TAB PO (20:48)
[2024-03-11] MEDS: SODIUM CHLORIDE 0.9 % (FLUSH) 10 ML SYRINGE 5 ML IVF ×2 (20:48→22:56)
[2024-03-11] MEDS: MAGNESIUM OXIDE 400 MG TABLET PO (20:48)
[2024-03-11] MEDS: CALCIUM CARBONATE 500 MG TABLET 2000 MG PO (20:48)
[2024-03-11 21:50] LABS: Chloride* 99 mmol/L (96-114); Potassium* 4.5 mmol/L (3.6-5.1); Sodium* 127 mmol/L (135-149)
[2024-03-11 21:52] LABS: Creatinine* 0.9 mg/dL (0.5-1.5); Est. Creatinine Clearance* 68.98; Estimated Glomerular Filt Rate 89 ml/min
[2024-03-11 21:53] LABS: Anion Gap 8 mEq/L (7-15); Blood Urea Nitrogen* 29 mg/dL (7-30); Carbon Dioxide* 20 mmol/L (20-32); Glucose* 180 mg/dL (60-115)
[2024-03-11 22:04] LABS: Calcium* 5.1 mg/dL (8.4-10.6)
[2024-03-12] VITALS (7 sets, daily range): BP systolic 118–135; BP diastolic 77–83; PULSE 106–127; RESP 16–24; TEMP 36.5–36.8; O2SAT 95–100
[2024-03-12] MEDS: MORPHINE 2 MG/ML inj IVP ×3 (00:42→20:12)
[2024-03-12] MEDS: SODIUM CHLORIDE 0.9 % (FLUSH) 10 ML SYRINGE 5 ML IVF ×3 (00:50→09:38)
[2024-03-12] MEDS: CALCIUM GLUC 1,000MG/50 ML 1,000 MG/50 ML BAG 100 MG IVPB ×2 (01:55→08:14)
--- NOTE | 2024-03-12 07:07 | PC.NURSE ---
END OF SHIFT NOTE: PT PLEASANT AND COOPERATIVE. A&O. DENIES CP, SOB, N/V. REMAINED IN BED THIS SHIFT. STOOD AT BEDSIDE FOR MORNING WT. ALFORD IN PLACE WITH HEMATURIA AND BLOOD CLOTS. VSS ON RA; AFEBRILE. TELE READ SINUS ARRHYTHMIA WITH PACs. REPORTS SUPRAPUBIC PAIN 4-02/11. BED ALARM ON AND CALL LIGHT WITHIN PT?S REACH.?
[2024-03-12 07:11] LABS: Chloride* 98 mmol/L (96-114); Sodium* 126 mmol/L (135-149)
[2024-03-12 07:14] LABS: Anion Gap 9 mEq/L (7-15); Carbon Dioxide* 19 mmol/L (20-32); Creatinine* 1.5 mg/dL (0.5-1.5); Est. Creatinine Clearance* 45.99; Estimated Glomerular Filt Rate 48 ml/min
[2024-03-12 07:15] LABS: Blood Urea Nitrogen* 36 mg/dL (7-30); Glucose* 163 mg/dL (60-115)
--- NOTE | 2024-03-12 08:47 | NUTR.NU ---
RDN with nutrition screen related to low oral intakes and malnutrition diagnosis. 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 Per IDT, patient is considering hospice at this time. No nutrition interventions due to goals of care and possible hospice. RDN will continue to monitor.
--- NOTE | 2024-03-12 09:02 | REH.OT ---
OT/PT: Orders received, chart reviewed and OT/PT to Hold, not therapy candidate per MD due to pt status and plan for discussion to determine goals of care today.
[2024-03-12] MEDS: calcitrioL 0.25 MCG CAPSULE 0.5 MCG PO (09:37)
[2024-03-12] MEDS: POTASSIUM BICARB 25 MEQ EFFERVESCENT TAB PO (09:37)
[2024-03-12] MEDS: CALCIUM CARBONATE 500 MG TABLET 2000 MG PO (09:37)
[2024-03-12] MEDS: MAGNESIUM OXIDE 400 MG TABLET PO (09:46)
--- NOTE | 2024-03-12 11:16 | PC.SOCIAL ---
Addendum entered by BROOKE Peterson 03/12/24 17:03: Received call from [facility] attraction worker, Roxy, stating she has spoken with Paulette and her first choice for placement is [facility]. Called back to [facility] and spoke with director, Fior, who states they have a bed but can not accept a patient before Saturday. Fior requested information be faxed for review Saturday for decision on admission on Saturday. tin worker to follow up as needed. Addendum entered by BROOKE Peterson 03/12/24 11:46: Received call back from [facility] stating they will not have any beds available until Saturday. Received call from [facility] on the [facility] stating they have one open bed for hospice patient available now. Daily rate for that bed is $530/day with a 7 day deposit at admission ($3710). tin worker to follow up as needed. Addendum entered by BROOKE Peterson 03/12/24 11:37: Received call back from [facility] stating they do not currently have any beds available, but they may early next week. They require $10,000 deposit and estimate for daily rate is about $550/day. Awaiting calls back from other facilities and then will share information with pt and family. Original Note: Discharge planning: Met with pt at MD request to discuss his decision to sign on to hospice services at discharge. Pt states he would like to have hospice arranged and to be discharged home from the hospital when ready. Pt is aware of option to be discharged to a senior living facility for 24/7 care but states he wants to go home and his two adult children are coming from out of state this evening. One is staying for a short time, but one is able to stay for many weeks and work remotely. Pt states she will be able to provide care for him at home. Pt requested social services director return and meet with the whole family when his children arrive, either later today or tomorrow morning. Pt gave social services director permission to discuss discharge plans with his ex- Paulette. Met with Paulette at her request separate from pt.Paulette states that pt will use [facility] at discharge as he is already on service with [facility]. She provided the contact information for the Hospice/Palliative care social services director to contact, Roxy at [phone]. Paulette shared that she is not comfortable with pt's plan to discharge home and feels he needs to have 24/7 care of nurses and should go to a fdc. Paulette requested social services director contact [facility] and [facility] to find out about bed availability. Paulette states she does not feel any family member has the training required to provide care at home and that they would have to hire 24/7 RN care at home if he returns home. Paulette states [facility] tin workerRoxy has information on an agency that can be hired to provide this level of care at home. Called [facility] social services directorRoxy. She has already spoken with today and is suggesting a facility for 24/7 care would be a better fit than home for this patient. Roxy suggested social services director contact [facility] as pt financially qualifies for their services and that [facility] and [facility] be back-up to [facility] for [facility]. Called [facility] [phone], [facility] and [facility] and left message requesting call back with information on bed availability. Received call from [facility] charge nurse, Vilma [phone] (cell) who states they would be able to start hospice services at home or at a facility in [place] tomorrow but that they do not have availability over the weekend. If pt is admitted to a facility out of their area, such as [facility], social services director would need to call the [facility] office serving that area regarding availability for hospice admit. tin worker to follow up as needed.
[2024-03-12 11:26] LABS: Eosinophils Absolute Auto 0.01 K/uL (0.00-0.50); Eosinophils Percent Auto 0.1 % (0.0-7.0); Hematocrit 22.2 % (37.0-53.0); Immature Granulocytes Abs Auto 0.12 K/uL (0.00-0.30); Immature Granulocytes Pct Auto 1.2 %; Lymphocytes Percent Auto 1.9 % (20-44); Mean Corpuscular HGB Conc 32 gm/dL (32-36); Mean Corpuscular Hemoglobin 27 pg (26-34); Mean Corpuscular Volume 85 fL (80-100); Monocytes Percent Auto 4.6 % (0.0-11.0); Neutrophils Percent Auto 92.2 % (42.0-72.0); Platelet Count* 60 K/uL (140-440); RDW Coefficient of Variation % 18.2 % (11.5-15.5); Red Blood Count 2.62 m/uL (4.30-5.90); White Blood Count* 10.23 K/uL (4.50-11.00)
[2024-03-12 11:36] LABS: Slide Review Reflex Yes
[2024-03-12 11:44] LABS: Slide Review Acceptable Review (Acceptable)
--- NOTE | 2024-03-12 12:38 | P.IMPN_ITS ---
Progress Note: A&P Assessment and plan (1) Need for comfort care: Problem details: Comfort cares have been ordered as discussed with patient and Paulette his POA. She is reaching out to Dr. Rodrigues, Urology, to address questions/concerns of indwelling catheter an ongoing suprapubic pain. Best how to manage these going forward. [facility] will assume cares social services counselor for placement Status: Acute (2) Abdominal pain, suprapubic: Problem details: Patient has severe bladder pain. Bladder scan shows 318 mL of retained urine and blood with Mccann catheter in place. 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 Will continue to monitor for obstruction of the catheter and attempt to manage that. Treatment for bladder pain will be opioid therapy. Status: Acute (3) Prostate cancer metastatic to bone: Problem details: Oncology had eliminated previous treatments which were having too many side effects. Offered palliative Keytruda but he was too ill to receive it today. Poor prognosis. Hospice care initiated Status: Acute (4) Hypocalcemia: Problem details: Calcium 5.3 today. Poorly tolerating oral calcium. Even with high dose oral calcium he is subtherapeutic. No further management of hypocalcemia per discussion with patient and POA Status: Acute (5) Malnutrition: Problem details: Approximately 11 kg weight loss in the last 12 weeks. Patient reports no appetite and very poor oral intake. 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 Indwelling Mccann with recurrent clot formation. POA reaching out to Urology to discuss management going forward with hospice cares Status: Acute (7) Hyponatremia: Problem details: Due to poor oral intake with moderate water intake Per discussion with patient and POA, no further monitoring or management. Eat and drink what he desires. Status: Acute (8) Acute urinary retention: Problem details: Is having ongoing bladder pain and hematuria that is causing clotting of the catheter. Will aspirate and irrigate the catheter as needed. Avoid removing the catheter as replacing it would likely be very traumatic and possibly require urologic surgery. It appears that the pain is out of proportion to what would be expected for his relatively minor bladder distension. POA reaching out to Urology - patient has an appointment on Saturday. Decision for hospice cares. Indwelling catheter in place. Continue irrigation p.r.n. as tolerated. Status: Acute (9) Palliative care encounter: Problem details: Discussed with patient that his current severe medical problems including hematuria, hypocalcemia, malnutrition and the underlying cause of these, metastatic prostate cancer, have no good treatment options. All we have left his palliative care. He is considering hospice. Hospice care/comfort cares initiated 03/12 Status: Acute (10) Fatigue: Problem details: Noted Status: Acute (11) Anorexia: Problem details: Noted Status: Acute (12) Anemia: Problem details: Acute on chronic, recurrent blood loss anemia. Chronic indwelling catheter secondary to tumor. Clarence hematuria. Hemoglobin 8.1 on admission, currently 7.0. Several recent transfusions without improved outcome. Patient declines transfusion. Hospice cares initiated. Status: Acute Plan Hospice cares. social services counselor seeking placement. POA reaching out to Urology regarding upcoming appointment on Saturday. Time Spent With Patient Total time spent: Total time spent caring for the patient today was 75 minutes. This includes time spent for the visit reviewing the chart, time spent during the visit, time spent after the visit and documentation and planning in coordination of care. Subjective Date Seen: 03/12/24 Interval history: Met with patient twice today, 2nd time with Paulette his POA, and their friend, Daniele. Decision has been made to pursue hospice cares in a facility along with comfort cares while in the hospital. We will no longer measure or manage electrolyte abnormalities. He is aware his hemoglobin is 7.0. He has had several transfusions in the last several weeks, none of which have provided a significant improvement. He has clarence hematuria. His biggest concern is his bladder pain. Exam Narrative: Exam Narrative: PHYSICAL EXAM General: Pleasant, tired, cachectic HEENT: Normocephalic, atraumatic, sclera white, EOMI, oral mucosa dry Cardiovascular: RRR, S1S2. No pitting edema Pulmonary: CTA bilaterally without rhonchi, rales, expiratory wheezes. No dyspnea on room air Abdominal: Soft, nondistended, NTTP Neurological: Alert, answering questions appropriately, cranial nerves intact, no focal findings Extremities: No gross joint deformity or swelling. AROMI. Neurovascularly intact Skin: Warm, dry. Const: Vital Signs, click to edit/add: Vital Signs - 24 hr 03/11/24 13:41 03/11/24 14:30 03/11/24 14:45 Temperature 97.2 F L Pulse Rate 109 H 97 Pulse Rate [Apical ] Pulse Rate [Pulse Oximeter] 127 H Pulse Rate [Right Radial] Respiratory Rate 18 Blood Pressure [Ri ght Arm] Blood Pressure [Ri ght Upper Arm] 101/69 Pulse Oximetry 99 97 96 Oxygen Delivery [facility] Room Air 03/11/24 14:53 03/11/24 15:00 03/11/24 15:15 Temperature Pulse Rate 106 H 109 H Pulse Rate [Apical ] Pulse Rate [Pulse Oximeter] Pulse Rate [Right Radial] Respiratory Rate Blood Pressure [Ri ght Arm] Blood Pressure [Ri ght Upper Arm] Pulse Oximetry 96 96 98 Oxygen Delivery [facility] 03/11/24 15:30 03/11/24 15:45 03/11/24 16:00 Temperature Pulse Rate 106 H 108 H 105 H Pulse Rate [Apical ] Pulse Rate [Pulse Oximeter] Pulse Rate [Right Radial] Respiratory Rate Blood Pressure [Ri ght Arm] Blood Pressure [Ri ght Upper Arm] Pulse Oximetry 98 97 98 Oxygen Delivery [facility] 03/11/24 16:15 03/11/24 16:27 03/11/24 17:08 Temperature Pulse Rate 112 H Pulse Rate [Apical ] Pulse Rate [Pulse Oximeter] 126 H Pulse Rate [Right Radial] Respiratory Rate 18 Blood Pressure [Ri ght Arm] Blood Pressure [Ri ght Upper Arm] 155/86 H Pulse Oximetry 99 93 98 Oxygen Delivery [facility] Room Air Room Air 03/11/24 17:10 03/11/24 17:53 03/11/24 20:26 Temperature 97.6 F 98.1 F Pulse Rate 109 H Pulse Rate [Apical ] Pulse Rate [Pulse Oximeter] Pulse Rate [Right Radial] 111 H 114 H Respiratory Rate 18 18 Blood Pressure [Ri ght Arm] 148/93 H 143/78 H Blood Pressure [Ri ght Upper Arm] Pulse Oximetry 97 98 Oxygen Delivery [facility] Room Air Room Air 03/12/24 00:40 03/12/24 00:40 03/12/24 00:40 Temperature Pulse Rate 114 H Pulse Rate [Apical ] 120 H Pulse Rate [Pulse Oximeter] 127 H Pulse Rate [Right Radial] Respiratory Rate 24 24 Blood Pressure [Ri ght Arm] Blood Pressure [Ri ght Upper Arm] Pulse Oximetry 95 Oxygen Delivery Me thod Room Air 03/12/24 00:40 03/12/24 02:45 03/12/24 07:11 Temperature 98.1 F 97.9 F Pulse Rate 109 H Pulse Rate [Apical ] 120 H 120 H Pulse Rate [Pulse Oximeter] 127 H 123 H Pulse Rate [Right Radial] Respiratory Rate 24 18 Blood Pressure [Ri ght Arm] 134/80 135/83 Blood Pressure [Ri ght Upper Arm] Pulse Oximetry 95 95 Oxygen Delivery [facility] Room Air Room Air 03/12/24 07:58 03/12/24 07:58 03/12/24 08:01 Temperature 97.7 F Pulse Rate Pulse Rate [Apical ] 106 H 106 H Pulse Rate [Pulse Oximeter] Pulse Rate [Right Radial] Respiratory Rate 16 16 Blood Pressure [Ri ght Arm] 118/83 Blood Pressure [Ri ght Upper Arm] Pulse Oximetry 100 100 Oxygen Delivery [facility] Room Air Room Air 03/12/24 11:00 Temperature 98.2 F Pulse Rate Pulse Rate [Apical ] 109 H Pulse Rate [Pulse Oximeter] Pulse Rate [Right Radial] Respiratory Rate 16 Blood Pressure [Ri ght Arm] 122/77 Blood Pressure [Ri ght Upper Arm] Pulse Oximetry 97 Oxygen Delivery [facility]od Room Air Labs Labs: Laboratory Results - last 24 hr 03/11/24 03/11/24 03/11/24 14:30 14:37 15:29 WBC 10.67 RBC 3.01 L Hgb 8.1 L Hct 25.0 L MCV 83 MCH 27 MCHC 32 RDW Coeff of [place] 18.1 H Plt Count 53 L Neut % (Auto) 88.7 H Lymph % (Auto) 1.5 L [place] % (Auto) 7.6 Eos % (Auto) 0.1 Baso % (Auto) 0.0 Neut # (Auto) 9.50 H Lymph # (Auto) 0.20 L [place] # (Auto) 0.80 Eos # (Auto) 0.01 Baso # (Auto) 0.00 Abs Immat Gran (auto) 0.22 Imm/Tot Granulo (auto) 2.1 Diff Slide Review Acceptable Review Sodium 126 L Potassium 4.6 Chloride 98 Carbon Dioxide 19 L Anion Gap 9 BUN 26 Creatinine 0.8 Estimated Creat Clear 68.98 Estimated GFR 92 Glucose 187 H Calcium 5.3 L* Phosphorus 3.3 Magnesium 1.9 Lab Acknowledgement Test Added 03/11/24 03/12/24 03/12/24 20:55 06:24 11:11 WBC 10.23 RBC 2.62 L Hgb 7.0 L* Hct 22.2 L MCV 85 MCH 27 MCHC 32 RDW Coeff of [place]co 18.2 H Plt Count 60 L Neut % (Auto) 92.2 H Lymph % (Auto) 1.9 L [place] % (Auto) 4.6 Eos % (Auto) 0.1 Baso % (Auto) 0.0 Neut # (Auto) 9.40 H Lymph # (Auto) 0.20 L [place] # (Auto) 0.50 Eos # (Auto) 0.01 Baso # (Auto) 0.00 Abs Immat Gran (auto) 0.12 Imm/Tot Granulo (auto) 1.2 Diff Slide Review Acceptable Review Sodium 127 L 126 L Potassium 4.5 5.0 Chloride 99 98 Carbon Dioxide 20 19 L Anion Gap 8 9 BUN 29 36 H Creatinine 0.9 1.5 Estimated Creat Clear 68.98 45.99 Estimated GFR 89 48 Glucose 180 H 163 H Calcium 5.1 L* 5.0 L* Phosphorus Magnesium Lab Acknowledgement Test Added
--- NOTE | 2024-03-12 16:40 | PC.NURSE ---
Shift Summary: Patient and cooperative. Mccann without clots throughout shift, continues to have bloody output, 350cc out from -. Turn and reposition per patients request. Poor appetite. Patient now on comfort cares. Family at bedside at this time. Denies nausea, c/o pain 02/11 managed with PRN medication.
[2024-03-12] MEDS: OXYCODONE 5 MG TABLET PO (18:08)
[2024-03-12] MEDS: ONDANSETRON ODT 4 MG TAB PO (20:08)
--- NOTE | 2024-03-13 06:50 | PC.NURSE ---
23-07: pleasant and cooperative. Mccann with bloody urine, asad cares prn. No c/o pain, declined need for prn medication. Aqua K pad placed on back. ?
[2024-03-13 07:41] VITALS: PULSE 99; RESP 16
[2024-03-13] MEDS: SODIUM CHLORIDE 0.9 % (FLUSH) 10 ML SYRINGE 5 ML IVF ×2 (09:00→20:29)
[2024-03-13] MEDS: hydrOXYzine pamoate 25 MG CAPSULE PO (09:56)
--- NOTE | 2024-03-13 10:44 | PM.IMPN1 ---
Progress Note: A&P Assessment and plan (1) Need for comfort care: Problem details: Comfort cares as discussed with patient and Paulette his POA (ex ) [facility] hosp[facility] will assume cares director of volunteer services for placement - currently in discussion with [facility] as of 03/13. Patient wishes to continue to have catheter cares, including flushes as needed for increased pain/obstruction. This will need to be considered in placement options. Status: Acute (2) Abdominal pain, suprapubic: Problem details: Chronic in setting of known prostate cancer tumor, s/p radiation, indwelling catheter, acute gross hematuria. Patient has severe bladder pain. Bladder scan shows 318 mL of retained urine and blood with Mccann catheter in place on admission. 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 Will continue to monitor for obstruction of the catheter and attempt to manage that with flushes as needed. Treatment for bladder pain will be opioid therapy. Status: Acute (3) Prostate cancer metastatic to bone: Problem details: Oncology had eliminated previous treatments which were having too many side effects. Offered palliative Keytruda but he was too ill to receive it today. Poor prognosis. Hospice care initiated. [facility]12. Status: Acute (4) Hypocalcemia: Problem details: 5.3-5.0 during hospital course. Ionized calcium < 1.0 recently. Poorly tolerating oral calcium in outpatient setting. Even with high dose oral calcium he is subtherapeutic. No further management of hypocalcemia per discussion with patient and POA Status: Acute (5) Malnutrition: Problem details: Approximately 11 kg weight loss in the last 12 weeks. Patient reports no appetite and very poor oral intake. 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 Indwelling Mccann with recurrent clot formation. POA reaching out to Urology to cancel Mondays outpatient clinic appointment, discuss current course of care in hospice setting. Status: Acute (7) Hyponatremia: Problem details: Due to poor oral intake with moderate water intake Per discussion with patient and POA, no further monitoring or management. Eat and drink what he desires. Status: Acute (8) Acute urinary retention: Problem details: Is having ongoing bladder pain and hematuria that is causing clotting of the catheter. Will aspirate and irrigate the catheter as needed. Avoid removing the catheter as replacing it would likely be very traumatic and possibly require urologic surgery. It appears that the pain is out of proportion to what would be expected for his relatively minor bladder distension. POA reaching out to Urology - patient has an appointment on Saturday to cancel or reschedule to zoom if desired. Decision for hospice cares. Indwelling catheter in place. Continue irrigation p.r.n. as tolerated for ongoing comfort measures. director of volunteer services aware in finding appropriate facility. Status: Acute (9) Palliative care encounter: Problem details: Discussed with patient that his current severe medical problems including hematuria, hypocalcemia, malnutrition and the underlying cause of these, metastatic prostate cancer, have no good treatment options. All we have left his palliative care. He is considering hospice. Hospice care/comfort cares initiated 03/12 Status: Acute (10) Fatigue: Problem details: Noted Status: Acute (11) Anorexia: Problem details: Noted Status: Acute (12) Anemia: Problem details: Acute on chronic, recurrent blood loss anemia. Chronic indwelling catheter secondary to tumor. Leonidas hematuria. Hemoglobin 8.1 on admission, currently 7.0. Several recent transfusions without improved outcome. Patient declines transfusion. Hospice cares initiated. Status: Acute Plan Hospice cares. director of volunteer services seeking placement, aware of indwelling Mccann catheter needs for ongoing management in comfort care. May not be able to find placement until Saturday. Time Spent With Patient Total time spent: Total time spent caring for the patient today was 45 minutes. This includes time spent for the visit reviewing the chart, time spent during the visit, time spent after the visit and documentation and planning in coordination of care. Subjective Date Seen: 03/13/24 Interval history: Patient is sitting up in a chair by the window this morning, calm, contemplative. Pain is currently appropriately managed. He continues to worry about his catheter and pain associated with obstruction. Even asked me to tell him not to worry about it. Tells me how exhausting it is to stand and walk a short distance to the bathroom. Appetite remains poor, even when family brought in some of his favorite foods. director of volunteer services in conversation with [facility], per family request. Uncertain if they will be able to manage his catheter which is to remain in place for comfort cares but needing flushes when obstructed. Patient acknowledges managing his catheter this way is important to him. Exam Narrative: Exam Narrative: PHYSICAL EXAM General: Pleasant, quiet, tired Pulmonary: No dyspnea Neurological: Alert, answering questions appropriately Const: Vital Signs, click to edit/add: Vital Signs - 24 hr 03/12/24 11:00 03/12/24 15:00 03/13/24 07:41 Temperature 98.2 F Pulse Rate [Apical ] 109 H 106 H Pulse Rate [Pulse Oximeter] 99 Respiratory Rate 16 16 16 Blood Pressure [Ri ght Arm] 122/77 Pulse Oximetry 97 Oxygen Delivery Me thod Room Air Labs Labs: Laboratory Results - last 24 hr 03/12/24 03/12/24 06:24 11:11 WBC 10.23 RBC 2.62 L Hgb 7.0 L* Hct 22.2 L MCV 85 MCH 27 MCHC 32 RDW Coeff of Mayco 18.2 H Plt Count 60 L Neut % (Auto) 92.2 H Lymph % (Auto) 1.9 L [place] % (Auto) 4.6 Eos % (Auto) 0.1 Baso % (Auto) 0.0 Neut # (Auto) 9.40 H Lymph # (Auto) 0.20 L [place] # (Auto) 0.50 Eos # (Auto) 0.01 Baso # (Auto) 0.00 Abs Immat Gran (auto) 0.12 Imm/Tot Granulo (auto) 1.2 Diff Slide Review Acceptable Review Lab Acknowledgement Test Added
--- NOTE | 2024-03-13 11:54 | PC.SOCIAL ---
Addendum entered by ZACH Duckworth 03/13/24 13:26: Vilma [facility] nurse at [phone] called back and wants orders sent to . Original Note: Pt. has been accepted to [facility] for Saturday with [facility]. Spoke with Ancelmo Ramsey dry yard worker @ [phone] and they can admit pt. to hospice Saturday at 10am at [facility]. Updated pt., daughter, and ex- Paulette. Paulette will plan to meet pt. at [facility] for paperwork. Pt. wants and EMS transport. Pt. signed consent to privately pay for a non-emergency ambulance transport if insurance does not cover non-emergency transport for him. Updated the charge nurse that an ambulance needs to be arranged for 9am for pt. on Saturday.
[2024-03-13] MEDS: OXYCODONE 5 MG TABLET PO ×2 (14:03→20:00)
[2024-03-13 15:00] VITALS: RESP 16
[2024-03-13] MEDS: ACETAMINOPHEN 325 MG TABLET 975 MG PO (17:04)
[2024-03-13] MEDS: MAG HYDROX/ALUMINUM HYD/SIMETH 30 ML ORAL.SUSP 15 ML PO (17:43)
--- NOTE | 2024-03-13 18:09 | PC.NURSE ---
End of Shift: Patient pleasant and cooperative. Vitals performed x1 this shift and stable, lungs clear, BS WNL, IV SL and intact. Patient reported back and side pain once rating discomfort 5/10, 5 mg of oxy and tylenol given once. Patient has up in the chair once today. Mccann intact and draining blood with some clots, 100ml emptied. Patient has no appetite but taking in some fluids, patient took in about 1/4 of a protein premium and some water. Patient given a yogurt but has not yet eaten it. Patient reported indegeston and med given for symptoms. Patient has otherwise been laying comfortably in bed, with family present most of day.
[2024-03-13 19:29] VITALS: PULSE 98; RESP 16
[2024-03-13 19:31] VITALS: TEMP 36.8
[2024-03-13] MEDS: MORPHINE 10 MG/0.5 ML ORAL SOLN PO ×2 (19:59→23:34)
[2024-03-14] MEDS: MORPHINE 2 MG/ML inj IVP ×3 (07:31→19:47)
[2024-03-14] MEDS: SODIUM CHLORIDE 0.9 % (FLUSH) 10 ML SYRINGE 5 ML IVF ×2 (07:32→20:00)
--- NOTE | 2024-03-14 08:42 | P.IMPN_ITS ---
Progress Note: A&P Assessment and plan (1) Need for comfort care: Problem details: Comfort cares as discussed with patient and Paulette his POA (ex ) [facility] will assume cares environmental services tech for placement - currently in discussion with [facility] as of 03/13. Patient wishes to continue to have catheter cares, including flushes as needed for increased pain/obstruction. This will need to be considered in placement options. Status: Acute (2) Anemia: Problem details: Acute on chronic, recurrent blood loss anemia. Chronic indwelling catheter secondary to tumor. Leonidas hematuria. Hemoglobin 8.1 on admission, currently 7.0. Several recent transfusions without improved outcome. Patient declines transfusion. Hospice cares initiated. Status: Acute (3) Prostate cancer metastatic to bone: Problem details: Oncology had eliminated previous treatments which were having too many side effects. Offered palliative Keytruda but he was too ill to receive it today. Poor prognosis. Hospice care initiated. [facility] patient 03/12. Status: Acute (4) Abdominal pain, suprapubic: Problem details: Chronic in setting of known prostate cancer tumor, s/p radiation, indwelling catheter, acute gross hematuria. Patient has severe bladder pain. Bladder scan shows 318 mL of retained urine and blood with Gifford catheter in place on admission. 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 Will continue to monitor for obstruction of the catheter and attempt to manage that with flushes as needed. Treatment for bladder pain will be opioid therapy. Status: Acute (5) Acute urinary retention: Problem details: Is having ongoing bladder pain and hematuria that is causing clotting of the catheter. Will aspirate and irrigate the catheter as needed. Avoid removing the catheter as replacing it would likely be very traumatic and possibly require urologic surgery. It appears that the pain is out of proportion to what would be expected for his relatively minor bladder distension. POA reaching out to Urology - patient has an appointment on Saturday to cancel or reschedule to zoom if desired. Decision for hospice cares. Indwelling catheter in place. Continue irrigation p.r.n. as tolerated for ongoing comfort measures. environmental services tech aware in finding appropriate facility. Status: Acute (6) Hypocalcemia: Problem details: 5.3-5.0 during hospital course. Ionized calcium < 1.0 recently. Poorly tolerating oral calcium in outpatient setting. Even with high dose oral calcium he is subtherapeutic. No further management of hypocalcemia per discussion with patient and POA Status: Acute Plan plan for 03/14: Discharge to [facility] on Saturday; [facility]; continue comfort cares Subjective Date Seen: 03/14/24 Interval history: patient is comfort care requesting diet coke no acute events overnight Exam Narrative: Exam Narrative: Gen: no acute distress HEENT: NCAT EOMI mmm CV: RRR normal s1 s2 Lungs: CTAB Abd: Soft,nt, nd Neuro: Alert, oriented, CN grossly intact; nonfocal screening?exam Psych: appropriate affect ; gifford in place Const: Vital Signs, click to edit/add: Vital Signs - 24 hr 03/13/24 15:00 03/13/24 19:29 03/13/24 19:31 Temperature 98.2 F Pulse Rate [Pulse Oximeter] 98 Respiratory Rate 16 16
[2024-03-14 09:00] VITALS: PULSE 91
[2024-03-14] MEDS: OXYCODONE 5 MG TABLET PO ×4 (11:46→22:06)
[2024-03-14] MEDS: LIDOCAINE 5% PATCH 1 PATCH TRANSDERMA ×2 (15:41→20:08)
--- NOTE | 2024-03-14 16:25 | PC.NURSE ---
Shift Summary: Patient pleasant and cooperative. Family present and prefer to be the ones to do cares for patient. T&R per patient request, mepilex placed over coccyx to protect skin. Patient pain managed with PRN medication see OCT. Lidocaine patch ordered for lower back pain. Decreased appetite, no food ordered today however did have some applesauce and sips of water, denied nausea. Oral sponges and oral moisturizer used for oral care. Bladder scan done showed 80cc. Low urine output, 50cc bloody urine. Abdomen feels distended, patient stated pain stays around 7/10. Complained more of back pain than abdominal pain today, pain worse with repositioning. Heat pad placed over abdomen for comfort.
[2024-03-14] MEDS: fentaNYL 50 MCG/HR PATCH 1 PATCH TRANSDERMA (16:47)
[2024-03-14] MEDS: MAG HYDROX/ALUMINUM HYD/SIMETH 30 ML ORAL.SUSP 15 ML PO (18:31)
[2024-03-14] MEDS: hydrOXYzine pamoate 25 MG CAPSULE PO (22:05)
[2024-03-14] MEDS: bisacodyL 5 MG TABLET DR 10 MG PO (22:05)
[2024-03-15] MEDS: LORazepam 1 MG TABLET PO (01:21)
--- NOTE | 2024-03-15 06:43 | PC.NURSE ---
Family at bedside upon arrival. See eMAR for pain control. Turn and repo per pt. Pt reports some anxiety, was chilled and shivering. See eMAR for intervention. Pt asleep on reassessment. Gifford in place and draining small amounts of blood. Upon reassessment fount pt not breathing and without a pulse. Pt at 0615. IV and gifford removed. Family notified and now at bedside.
--- NOTE | 2024-03-15 07:49 | PC.NURSE ---
Fentynal patch removed from left shoulder at 0748, discarded in black bin.
--- NOTE | 2024-03-15 08:51 | P.DS_ITS ---
DS: Providers Provider Date Seen: 03/14/24 Date of admission: 03/11/24 16:59 Primary care physician: Rivas Torres MD Admitting Clinician: Fredis Vaughan MD Consults: 03/11/24 17:11 Consult to [employer] [CONS] Routine Comment: Reason for Consult:: Discharge Planning Needs Attending Physician on discharge: Paolo Mederos MD Date of Discharge: 03/15/24 DS: Diagnosis Discharge Diagnosis (1) Need for comfort care: Status: Acute Problem details: Comfort cares as discussed with patient and Paulette his POA (ex ) [facility] hospice will assume cares senior administrative services officer for placement - currently in discussion with [facility] as of 03/13. Patient wishes to continue to have catheter cares, including flushes as needed for increased pain/obstruction. This will need to be considered in placement options. (2) Malnutrition: Status: Acute Problem details: Approximately 11 kg weight loss in the last 12 weeks. Patient reports no appetite and very poor oral intake. 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 Indwelling Mccann with recurrent clot formation. POA reaching out to Urology to cancel Mondays outpatient clinic appointment, discuss current course of care in hospice setting. (4) Hyponatremia: Status: Acute Problem details: Due to poor oral intake with moderate water intake Per discussion with patient and POA, no further monitoring or management. Eat and drink what he desires. (5) Anemia: Status: Acute Problem details: Acute on chronic, recurrent blood loss anemia. Chronic indwelling catheter secondary to tumor. Leonidas hematuria. Hemoglobin 8.1 on admission, currently 7.0. Several recent transfusions without improved outcome. Patient declines transfusion. Hospice cares initiated. (6) Prostate cancer metastatic to bone: Status: Acute Problem details: Oncology had eliminated previous treatments which were having too many side effects. Offered palliative Keytruda but he was too ill to receive it today. Poor prognosis. Hospice care initiated. [facility] patient 03/12. (7) Acute urinary retention: Status: Acute Problem details: Is having ongoing bladder pain and hematuria that is causing clotting of the catheter. Will aspirate and irrigate the catheter as needed. Avoid removing the catheter as replacing it would likely be very traumatic and possibly require urologic surgery. It appears that the pain is out of proportion to what would be expected for his relatively minor bladder distension. POA reaching out to Urology - patient has an appointment on Saturday to cancel or reschedule to zoom if desired. Decision for hospice cares. Indwelling catheter in place. Continue irrigation p.r.n. as tolerated for ongoing comfort measures. senior administrative services officer aware in finding appropriate facility. DS: Summary Hospital Course Hospital Course: Hospitalist- H&P: HPI History of Present Illness Date Seen: 03/11/24 Chief complaint: Plugged catheter Narrative: Solis Thibodeaux is a 78 year old male with end-stage metastatic prostate cancer admitted through the emergency department with severe bladder pain, hematuria and a plugged Mccann catheter. Patient has end-stage widely metastatic prostate cancer. He has been undergoing a variety of therapies for this outlined below. He has an indwelling Mccann catheter. This is been an ongoing problem for him. He has had increasing pain in his bladder as well as ongoing gross hematuria with blood clots. The emergency department physician talked with Urology today and they felt that his bladder pain could be and arteritis 0 bladder ends, a complication of radiation treatment. Bladder scan in the emergency department was 318. He had irrigation of blood clots without good relief. Because of previous problems with his catheter it is recommended that we not remove his catheter and try to replace it due to the difficulty of placing a new catheter. The gross hematuria was evaluated by Urology and they determined that he has prostate cancer in his bladder that is thought to be the source of the gross hematuria. He has severe hypocalcemia. This is an ongoing problem for him. He is taking 4000 mg of calcium a day. In the last 2 days he has not had any calcium because is been hard for him to swallow that many pills. He has also had a history of hypokalemia for which he takes 80 mEq of potassium a day. He is eating very little. He has very poor appetite. He has been able to take in some fluid. He reported having a fever recently. He was seen by his oncologist today and is uncertain whether his fever is from a urinary infection or from a tumor fever. He is currently receiving a fentanyl patch 25 mcg per hour plus Percocet 3 tablets a day for pain. This is inadequate to his need. He has longstanding history of evaluation and treatment of prostate cancer diagnosed in 2010. At that time he had [place] 7. Treated with radical radiation therapy. No surgery. Treated with intermittent hormonal therapy. In 2018 had cryotherapy. Monitoring of PSA showed 4.85 around the time of diagnosis in 2010 and subsequently has been less than 1 until 2021. PET scan in November 2021 showed locally advanced prostate cancer involving inguinal lymph nodes and supra- acetabular osseous metastases. December of 2021 treated with Xtandi. January of 2023 PSMA PET scan showed metastatic prostate cancer and possibly obstructed left kidney. New metastatic lesions. Xtandi discontinued. February 2023 started Xgeva with Taxotere June 2023 PET-CT showed improvement with decrease in uptake of osseous lesions. September to December of 2023 treated with darolutamide. PSA continued to increase. Most recently 125 on Jan 03 2020 for January 22 2024 1st treatment of PYLARIFY F-18, radiopharmaceutical. Also being treated with Lupron. Recently was told the last attempt at treatment would be Keytruda. He came to the clinic today to start treatment with Keytruda but he was too weak and his electrolytes were too abnormal to receive treatment HOSPITAL COURSE After family care conference patient and family elected to transition to comfort care. The patient on 03/15/2024. Time of was 6:45 AM Time Spent with Patient Time attestation: Total time spent providing and/or coordinating discharge services: Exam Const: Vital Signs, click to edit/add: Vital Signs - 24 hr 03/14/24 09:00 Pulse Rate [Apical ] 91 Discharge Plan Discharge Disposition: Date of Admission: 03/11/24 16:59 Attending Provider on Discharge: Paolo Mederos Primary Care Provider: Rivas Torres Condition: Critical Anticipated Discharge Date/Time: 03/13/24 10:00 Discharge Medications: New acetaminophen 325 mg Tablet 975 mg PO Q6H PRNQty: 100 0RF bisacodyl [Gentle Laxative (bisacodyl)] 5 mg Tablet,Delayed Release (Dr/Ec) 10 mg PO BID PRNQty: 10 0RF fentanyl 50 mcg/hr patch 72 hour 1 patch transdermal Q72H Qty: 5 0RF lorazepam 1 mg tablet 1 mg PO Q4H PRNQty: 30 0RF morphine concentrate 20 mg/mL syringe 20 mg sublingual Q2H PRNQty: 50 0RF bisacodyl 10 mg suppository 10 mg ND DAILY PRN (Reason: constipation) Qty: 12 0RF bisacodyl 5 mg tablet,delayed release (DR/EC) 5 mg PO BID 2 Days Qty: 4 0RF ondansetron 8 mg tablet,disintegrating 8 mg PO Q8H PRN (Reason: nausea and vomiting) Qty: 20 0RF Discontinued tamsulosin 0.4 mg capsule 0.8 mg PO DAILY sulfamethoxazole-trimethoprim [Bactrim DS] 800-160 mg tablet 1 tab PO Q12H Qty: 20 0RF No Action rosuvastatin 5 mg tablet 5 mg PO DAILY potassium chloride 20 mEq tablet extended release 40 meq PO BID magnesium oxide 400 mg (241.3 mg magnesium) tablet 400 mg PO BID calcium carbonate 500 mg calcium (1,250 mg) tablet 2,000 mg PO TID calcitriol 0.5 mcg capsule 0.5 mcg PO QDAY fentanyl 25 mcg/hr patch 72 hour 1 patch transdermal Q72H Qty: 5 0RF dronabinol 5 mg capsule 5 mg PO QACDINNER Qty: 30 0RF cholecalciferol (vitamin D3) [Vitamin D3] 50 mcg (2,000 unit) capsule 50 mcg PO DAILY Qty: 30 0RF cyanocobalamin (vitamin B-12) 1,000 mcg capsule 500 mcg PO Q3D Lupron Depot (6 Month) 45 mg syringe kit 45 mg IM [id number] oxycodone-acetaminophen [Percocet] 5-325 mg tablet 1 tab PO Q6H PRN (Reason: pain) Qty: 60 0RF Additional Instructions: Patient has fairly severe bladder pain which is due to multiple factors. Primarily this is thought due to endarteritis obliterans, a complication of radiation therapy. The catheter itself may cause some discomfort. If the catheter gets plugged and he gets bladder distension he will also have more bladder pain. If he is having bladder pain and the catheter is draining please give more pain medicine. If the catheter is not draining, please use a catheter tip syringe to aspirate blood clots and flush the catheter to remove the obstruction. Please do not remove the catheter as it is very difficult to place a new catheter. Activity Level: Up with assist Discharge Diet: Regular Follow Up Appointments: Rivas Torres MD [Primary Care Provider] - Forms: Mobile Roadie Info Instructions
--- NOTE | 2024-03-15 10:32 | PC.NURSE ---
Discharge: Patient prior to shift change. [facility]. Family collected patient's belongings.
--- NOTE | 2024-03-16 09:45 | PC.SOCIAL ---
Discharge planning: plate take out worker notified [facility] and [facility] that the pt over the weekend. Social work to follow-up as needed.
== END 2024-03-15 09:06 | disposition expired | DRG 699 ==
LOC: ED 16:35 → MEDSURG 16:43
PROVIDERS: Physician Assistant; Admitting Provider Family Medicine; Emergency Provider Family Medicine; PCP Family Medicine; Visit Provider Family Medicine
DX: T83.098A Other mechanical complication of other urinary catheter, initial encounter (principal); C79.11 Secondary malignant neoplasm of bladder; N30.41 Irradiation cystitis with hematuria; C79.51 Secondary malignant neoplasm of bone; E46 Unspecified protein-calorie malnutrition; E87.1 Hypo-osmolality and hyponatremia; D62 Acute posthemorrhagic anemia; W88.8XXA Exposure to other ionizing radiation, initial encounter; R31.0 Gross hematuria; R33.8 Other retention of urine; G89.3 Neoplasm related pain (acute) (chronic); N32.89 Other specified disorders of bladder; E87.6 Hypokalemia; C61 Malignant neoplasm of prostate; R10.30 Lower abdominal pain, unspecified; T45.1X5A Adverse effect of antineoplastic and immunosuppressive drugs, initial encounter; R39.89 Other symptoms and signs involving the genitourinary system; E83.51 Hypocalcemia; Z92.3 Personal history of irradiation; R63.0 Anorexia; Z51.5 Encounter for palliative care; R53.83 Other fatigue; Z68.23 Body mass index [BMI] 23.0-23.9, adult
CPT/HCPCS: 36415; 36591; 51798; 80048; 80053; 82310; 83735; 84100; 84153; 84443; 85025; 87086; 93005; 94761; 96361; 96365; 99211; 99281; 99285; A9270; J0613; J1642; J2270; J7030; S0169